=== PATIENT | female | born 1960 | race Two or more races ===

== ENCOUNTER → 2018-05-06 09:56 | Outpatient (CLI) | payer MEDICAID, SELFPAY ==
[2018-02-08 09:14] VITALS: BMI 44.1
[2018-05-06 09:27] VITALS: BMI 44.1
--- NOTE | 2018-05-07 08:35 | PFT ---
INTRODUCTION: The patient is a 57-year-old female that presents for pulmonary function studies secondary to a diagnosis of obstructive sleep apnea. Respiratory therapy reports good patient effort. Bronchodilators were used during testing. INTERPRETATION: Forced expiration spirometry demonstrates no evidence of a large airways obstructive ventilatory defect. There was no significant response to aerosolized bronchodilators. Spirograms are of good quality and plateau normally. The respiratory flow volume loop is normal. Body plethysmography was performed and reveals lung volumes to be within normal limits. Diffusing capacity by single breath CO is within normal limits as well. IMPRESSION: Normal pulmonary function studies.
== END ==
PROVIDERS: Family Provider Nurse Practitioner Family; PCP Nurse Practitioner Family; Referring Provider Internal Medicine Critical Care Medicine; Visit Provider Internal Medicine Critical Care Medicine
DX: G47.33 Obstructive sleep apnea (adult) (pediatric) (principal); G47.34 Idiopathic sleep related nonobstructive alveolar hypoventilation
CPT/HCPCS: 94060; 94726; 94729

== ENCOUNTER → 2018-05-12 09:37 | Outpatient (CLI) | payer MEDICAID, SELFPAY ==
[2018-05-06 09:27] VITALS: BMI 44.1
== END ==
PROVIDERS: Family Provider Nurse Practitioner Family; PCP Nurse Practitioner Family; Referring Provider Internal Medicine Critical Care Medicine; Visit Provider Internal Medicine Critical Care Medicine
DX: G47.34 Idiopathic sleep related nonobstructive alveolar hypoventilation (principal)
CPT/HCPCS: 94762

== ENCOUNTER → 2019-02-11 06:47 | Outpatient (CLI) | payer MEDICAID, SELFPAY ==
[2019-01-27 13:13] VITALS: BMI 42.3
--- NOTE | 2019-02-11 06:54 | CT_ITS ---
STUDY: CT RIGHT KNEE WITHOUT CONTRAST REASON FOR EXAM: Female, 58 years old. FELL 3 WKS AGO, FX PATELLA, PAIN RADIATION DOSAGE (If Supplied By Facility): CTDIvol = ( 15.35 ) mGy, DLP = ( 526.46 ) mGycm TECHNIQUE: Transaxial CT imaging of the knee was performed. Coronal and sagittal images were reformatted. Individualized dose optimization techniques were used for this CT. COMPARISON: None. FINDINGS: Mild spurring of the medial femoral condyle and medial tibial plateau. There is moderate narrowing of the articular joint space of the medial knee compartment. Mild spurring of the lateral femoral condyle and lateral tibial plateau. There is mild narrowing of the articular joint space of the lateral knee compartment. There is patellofemoral spurring and moderate joint space narrowing. There is recent nondisplaced fracture of the inferior medial aspect of the patella, series 3 images 59/121 and 60/121. There is adjacent corticated ossification suggesting prior avulsion. Normal proximal tibiofibular articulation. There is small joint effusion. The quadriceps tendon is grossly normal. The patellar tendon is grossly normal. Normal Hoffa''s fat pad. The soft tissues are unremarkable. CT/Extremity Lower without Contra IMPRESSION: Nondisplaced fracture of the patella. Tricompartmental degenerative change. Small joint effusion. Electronically Signed: Josh New MD at 8:28 EST , Service support ,
== END ==
PROVIDERS: Family Provider Student in an Organized Health Care Education/Training Program; PCP Student in an Organized Health Care Education/Training Program; Referring Provider Orthopaedic Surgery; Visit Provider Orthopaedic Surgery
DX: S82.091A Other fracture of right patella, initial encounter for closed fracture (principal)
CPT/HCPCS: 73700; 76377

== ENCOUNTER → 2019-03-02 15:02 | Outpatient (CLI) | payer MEDICAID, SELFPAY ==
[2019-01-27 13:13] VITALS: BMI 42.3
--- NOTE | 2019-03-02 15:02 | RAD_ITS ---
STUDY: X-RAY - RIGHT KNEE REASON FOR EXAM: Knee pain after a fall. TECHNIQUE: 4 view(s) of the knee. COMPARISON: CT images 02/11/2019. FINDINGS: Normal visualized distal femur. Normal visualized proximal tibia and fibula. Normal proximal tibiofibular articulation. There is a subtle healing nondisplaced fracture of the lateral patellar facet. There is also an ossicle adjacent to the lateral patellar facet. There is a small marginal osteophyte of the medial tibial plateau and mild joint space narrowing of the medial femorotibial compartment. There are very small marginal osteophytes without joint space narrowing of the lateral femorotibial compartment. There is severe joint space narrowing of the patellofemoral articulation. The soft tissue structures are unremarkable. RAD/Knee 4 or More Views IMPRESSION: Subtle healing nondisplaced fracture of the lateral patellar facet. Arthrosis of the medial femorotibial and patellofemoral compartments. Electronically Signed: Sandro Duron MD at 12:17 EST Tel , Service support ,
== END ==
PROVIDERS: Family Provider Student in an Organized Health Care Education/Training Program; PCP Student in an Organized Health Care Education/Training Program; Referring Provider Orthopaedic Surgery; Visit Provider Orthopaedic Surgery
DX: S82.001A Unspecified fracture of right patella, initial encounter for closed fracture (principal)
CPT/HCPCS: 73564

== ENCOUNTER 2021-05-20 09:33 | Outpatient (CLI) | payer MEDICAID, SELFPAY ==
--- NOTE | 2021-05-20 08:30 | EMB_PTH ---
PATIENT: MACY RIVAS LOC: [facility] U#:[id number] AGE/SX: 60/F ROOM: RE05/20/[address]: ARCADIO Mederos : 1960 BED: DIS: 05/20/2021 SPEC #: [id number] RECD: 05/20/21 09:28 STATUS: SANDRA REGena #: [id number] JEAN: 05/20/21 08:[address]: Lisbeth Whelna NP DEPT: SURGICAL PATHOLOGY RECD BY: Alexy Toure ENTERED: 05/20/21 10:50 SP TYPE: ENDOM BX/C ESTELLA DR: Dr. Ivone Hurtado MD Tissues: Endometrium, NOS Procedures: Surgery Specimen Level IV HEADER OPERATION: Endometrial biopsy PRE-OP DIAGNOSIS: PMB TISSUE SUBMITTED: Endometrial biopsy MICROSCOPIC DIAGNOSIS Endometrial biopsy: Disordered proliferative endometrium. See comment. MIREILLE:agustin 05/21/2021 COMMENT A polypoid fragment of endometrial tissue with fibrous stroma is also noted and may represent a fragment of benign endometrial polyp. Case has been reviewed in consultation with Dr. Thorpe who concurs with the above diagnosis. IDC:AM MICROSCOPIC DESCRIPTION Slides are reviewed. GROSS DESCRIPTION Received is one container labeled with the patient's name and not further designated. The specimen consists of multiple irregular fragments of solis soft tissue mixed with mucoid tissue that in aggregate measure 2.5 x 2 x 0.2 cm. The specimen is totally submitted in one cassette. / SJ:agustin 05/20/2021 TC:5 [facility]: [id number]
== END 2021-05-20 23:59 | disposition home or self-care (01) ==
LOC: LABSPEC 09:34
PROVIDERS: PCP Student in an Organized Health Care Education/Training Program; Referring Provider Nurse Practitioner Women's Health; Visit Provider Nurse Practitioner Women's Health
DX: N95.0 Postmenopausal bleeding (principal)
CPT/HCPCS: 88305

== ENCOUNTER 2021-05-27 14:09 | Outpatient (CLI) | payer MEDICAID, SELFPAY ==
--- NOTE | 2021-05-27 14:11 | US_ITS ---
EXAM: US pelvis, transvaginal.. HISTORY: endometrial thickening TECHNIQUE: US Pelvis Non OB Complete With Transvaginal Imaging COMPARISON: None. LIMITATIONS: None. UTERUS Size: Within normal limits Heterogeneous myometrium. Orientation: Normal. Endometrial echo: Normal. 4 mm Masses: Nabothian cysts measuring up to 13 mm. Bilateral ovaries not visualized. ADNEXA: No masses or fluid collections. CUL-DE-SAC: No masses or fluid collections. OTHER: Trace free fluid. CONCLUSION: 1. Endometrium 4 mm. 2. Trace free fluid. 3. Bilateral ovaries not visualized. Electronically Signed: Mitul Bar MD at 6:12 EDT , US/Transvaginal Non-
--- NOTE | 2021-05-27 14:11 | US_ITS ---
EXAM: US pelvis, transvaginal.. HISTORY: endometrial thickening TECHNIQUE: US Pelvis Non OB Complete With Transvaginal Imaging COMPARISON: None. LIMITATIONS: None. UTERUS Size: Within normal limits Heterogeneous myometrium. Orientation: Normal. Endometrial echo: Normal. 4 mm Masses: Nabothian cysts measuring up to 13 mm. Bilateral ovaries not visualized. ADNEXA: No masses or fluid collections. CUL-DE-SAC: No masses or fluid collections. OTHER: Trace free fluid. CONCLUSION: 1. Endometrium 4 mm. 2. Trace free fluid. 3. Bilateral ovaries not visualized. Electronically Signed: Mitul Bar MD at 6:12 EDT , US/Pelvic (Non )
== END 2021-05-27 23:59 | disposition home or self-care (01) ==
LOC: US 14:10
PROVIDERS: PCP Student in an Organized Health Care Education/Training Program; Referring Provider Obstetrics & Gynecology; Visit Provider Obstetrics & Gynecology
DX: R93.89 Abnormal findings on diagnostic imaging of other specified body structures (principal)
CPT/HCPCS: 76830; 76856

== ENCOUNTER → 2023-01-18 | Outpatient (CLI) | payer MEDICAID, SELFPAY ==
--- NOTE | 2023-01-18 08:53 | MRI_ITS ---
EXAM: MR RIGHT UPPER EXTREMITY WITHOUT INTRAVENOUS CONTRAST, SHOULDER CLINICAL INDICATION: pain, rule out cuff tear TECHNIQUE: Multiplanar and multisequence MR images of the right shoulder. COMPARISON: No relevant prior studies available. FINDINGS: TENDONS: SUPRASPINATUS: Full-thickness fullwidth tearing of the supraspinatus tendon with failure at the tendon footprint and and medial retraction resulting in a gap of 9 mm. INFRASPINATUS: Moderate infraspinatus tendinosis without significant tendon tearing. SUBSCAPULARIS: Distal subscapularis tendon is difficult to see and evaluate due to significant motion artifact. TERES MINOR: Unremarkable. Intact. BICEPS BRACHII, LONG HEAD: Long head of biceps tendon is difficult to see due to motion artifact. The extra-articular biceps tendon is not well seen in the bicipital groove. LIGAMENTS: GLENOHUMERAL: Unremarkable. Intact. MUSCLES: Unremarkable. No rotator cuff muscle atrophy. FLUID: Moderate to large amount of fluid in the subacromial/subdeltoid bursa could be related to full-thickness rotator cuff tear or could represent bursitis. CARTILAGE: Unremarkable. Articular cartilage intact. GLENOID LABRUM: Unremarkable. No gross labral tear. BONES/JOINTS: Moderate to severe hypertrophic degenerative changes acromioclavicular joint with moderate mass effect on the underlying soft tissues. Significant motion artifact limits assessment. Type II acromion with curved undersurface. No subacromial enthesophyte or os acromiale. OTHER SOFT TISSUES: Unremarkable. No rotator interval edema. MRI/Upper Ext Joint Only(Routine) IMPRESSION: 1. Full-thickness fullwidth tearing of the supraspinatus tendon with failure at the tendon footprint and and medial retraction resulting in a gap of 9 mm. 2. Moderate to large amount of fluid in the subacromial/subdeltoid bursa could be related to full-thickness rotator cuff tear or could represent bursitis. 3. Moderate to severe hypertrophic degenerative changes of the acromioclavicular joint with moderate mass effect on the underlying soft tissues. Electronically Signed: Franck Motley MD at 22:53 EST ,
== END | disposition home or self-care (01) ==
LOC: MRI 15:30
PROVIDERS: PCP Student in an Organized Health Care Education/Training Program; Referring Provider Orthopaedic Surgery Sports Medicine; Visit Provider Orthopaedic Surgery Sports Medicine
DX: M25.811 Other specified joint disorders, right shoulder (principal)
CPT/HCPCS: 73221

== ENCOUNTER → 2023-10-07 | Outpatient (CLI) | payer MEDICAID, SELFPAY ==
--- NOTE | 2023-10-07 11:38 | CT_ITS ---
CT LEFT LOWER EXTREMITY WITH 3-D IMAGING CLINICAL INDICATION: templating for left RYANN TECHNIQUE: Axial CT images of the LEFT lower extremity was performed without IV contrast material. Coronal and sagittal reformats were provided. The protocol utilizes one or more of the following dose reduction techniques: automated exposure control, adjustment of mA and/or kV according to patient size,and/or use of iterative reconstruction technique. RADIATION DOSAGE (If Supplied By Facility): CTDIvol = ( 14.07 ) mGy, DLP = ( 890.67 ) mGycm COMPARISON: Prior study dated: Prior radiographs of the left hip dated September 20, 2023. FINDINGS: Bones: Imaging of the left hip was obtained. There is evidence of a marked degree of joint space narrowing of the left hip joint with subchondral cysts is. An element of avascular necrosis should be ruled out. Imaging of the left knee joint was obtained. There is a moderate degree of joint space narrowing involving the medial compartment of the knee joint. Moderate degree of patellofemoral osteoarthritis. Soft Tissues: The deep soft tissue structures are unremarkable. The superficial soft tissues are unremarkable without evidence of edema, hematoma, or foreign body. CT/Extremity Lower without Contra IMPRESSION: Marked degree of joint space narrowing of the left hip joint with subchondral cysts and possible avascular necrosis. Electronically Signed: Miki Ivan MD at 15:15 EDT ,
== END | disposition home or self-care (01) ==
LOC: CT 11:36
PROVIDERS: PCP Nurse Practitioner Family; Referring Provider Orthopaedic Surgery; Visit Provider Orthopaedic Surgery
DX: M16.12 Unilateral primary osteoarthritis, left hip (principal)
CPT/HCPCS: 73700

== ENCOUNTER → 2023-10-15 | Outpatient (CLI) | payer MEDICAID, SELFPAY ==
[2023-10-15 11:34] LABS: Free T3 4.5 pg/mL (2.18-3.98); Thyroid Stim Hormone (TSH) < 0.005 uIU/mL (0.358-3.740)
== END | disposition home or self-care (01) ==
LOC: LAB 09:47
PROVIDERS: PCP Nurse Practitioner Family; Referring Provider Nurse Practitioner Family; Visit Provider Nurse Practitioner Family
DX: E05.90 Thyrotoxicosis, unspecified without thyrotoxic crisis or storm (principal)
CPT/HCPCS: 36415; 84439; 84443; 84481

== ENCOUNTER 2023-10-19 14:16 | Observation (INO) | payer MEDICAID, SELFPAY ==
--- NOTE | 2023-10-07 11:44 | EKG12_ITS ---
Test Reason : PRE OP Blood Pressure : / mmHG Vent. Rate : 110 BPM Atrial Rate : 110 BPM P-R Int : 146 ms QRS Dur : 068 ms QT Int : 316 ms P-R-T Axes : 024 001 085 degrees QTc Int : 427 ms Sinus tachycardia Otherwise normal ECG Confirmed by Stephen Angelo ([id number]), material expeditor RAQUEL NEELY ([id number]) on 10/11/2023 9:57:08 AM Referred By: Gavin Bhakta Confirmed By:Stephen Angelo
[2023-10-07 11:47] LABS: Absolute Lymphocyte Count 2.58 X10^3/uL (0.83-4.51); Absolute Neutrophil Count 4.9 X10^3/uL (2.0-7.7); Basophil# 0.06 X10^3/uL; Basophil% 0.7 % (0-1); Eosinophil# 0.29 X10^3/uL; Eosinophils% 3.4 % (0-5); Hematocrit 40.9 % (37-47); Hemoglobin 13.5 g/dL (12.0-15.0); Lymphocyte # 2.58 X10^3/ul (0.83-4.51); Lymphocyte % 30.4 % (19-41); Mean Corpuscular Hgb 28.3 pg (27.0-32.0); Mean Corpuscular Volume 85.7 fL (81-99); Mean Platelet Vol. 10.7 fl (6.2-12.0); Monocyte# 0.67 X10^3/uL; Monocyte% 7.9 % (0-10); NRBC Flagged by Analyzer 0 % (0-5); Neutrophil # 4.87 X10^3/uL (2.7-7.7); Neutrophil % 57.4 % (47-70); Platelet Count 302 K/mm3 (150-450); RBC Distribution Width SD 40.6 fl (35.1-43.9); Red Blood Count 4.77 M/mm3 (4.2-5.4); White Blood Count 8.5 K/mm3 (4.4-11.0)
[2023-10-07 11:54] LABS: International Normalized Ratio 1.1; Partial Thromboplast Time 25.4 Seconds (24.1-36.2); Prothrombin Time (Protime)PT. 13.8 SECONDS (11.7-14.9)
[2023-10-07 12:09] LABS: Microalbumin,Random Urine 5.8 mg/L (NO RANGE EST.); Microalbumin:Creatinine Ratio 11.2 mg/g CRE (<30 mg/g CRE)
[2023-10-07 12:48] LABS: Magnesium 2.2 mg/dL (1.6-2.6); Thyroid Stim Hormone (TSH) < 0.005 uIU/mL (0.358-3.740)
[2023-10-07 12:58] LABS: ALB/GLOB Ratio 0.7 RATIO (0.9-2.4); AST(SGOT) 18 U/L (15-37); Alanine Aminotransfer ALT/SGPT 28 U/L (13-56); Albumin, Serum 3.2 g/dL (3.2-5.0); Alkaline Phosphatase 82 U/L (45-117); Anion Gap 7 (5-15); BUN 19 mg/dL (7-18); BUN/Creat Ratio 28.8 RATIO (10-20); Calcium,Total 9.3 mg/dL (8.5-10.1); Chloride 103 mmol/L (98-107); Cholesterol 110 mg/dL (200); Creatinine, Serum 0.66 mg/dL (0.55-1.02); EST Glomerular Filtration Rate 97 mL/min (>60); Est Glom Filt Rate - Afr Amer 117 mL/min (>60); Free T3 5.4 pg/mL (2.18-3.98); Globulin 4.4 g/dL (2.2-4.2); Glucose 138 mg/dL (74-106); High Density Lipoprotein 30 mg/dL; Potassium 3.8 mmol/L (3.5-5.1); Protein, Total 7.6 g/dL (6.4-8.2); Sodium Level 136 mmol/L (136-145); T4 Free Direct 1.83 ng/dL (0.76-1.46); Thyroid Stim Hormone (TSH) < 0.005 uIU/mL (0.358-3.740); Triglycerides 197 mg/dL; Very Low Density Lipoprotein 39 mg/dL (5-40)
[2023-10-07 13:38] LABS: Vitamin D,25 Hydroxy 41.9 ng/mL
[2023-10-07 13:54] LABS: Hemoglobin A1c 6.2 % (3.8-5.6)
[2023-10-08 08:12] LABS: Fructosamine 208 umol/L (0-285)
[2023-10-13 07:08] LABS: Thyroid Peroxidase AB < 9 IU/mL (0-34); Thyroid Stim Immunoglob 2.28 IU/L (0.00-0.55)
[2023-10-19] VITALS (16 sets, daily range): BP systolic 122–162; BP diastolic 62–88; PULSE 98–110; RESP 14–18; TEMP 36.3–36.9; O2SAT 93–97; BMI 38.9
--- NOTE | 2023-10-19 08:30 | FEM_PTH ---
PATIENT: MACY RIVAS LOC: [facility] U#:[id number] AGE/SX: 62/F ROOM: HI311 RE10/19/[address]: Dr. Tom Payton DO : 1960 BED: 1 DIS: 10/20/2023 SPEC #: [id number] RECD: 10/19/23 18:11 STATUS: SANDRA REQ #: [id number] JEAN: 10/19/23 08:[address]: Gavin Bhakta DEPT: SURGICAL PATHOLOGY RECD BY: Erlinda Castañeda ENTERED: 10/20/23 11:46 SP TYPE: FEM HEAD OTHR DR: DO Dr. Tom Spangler DO Dr. Paige Pierce, MD Jessica Ungerer, MUFF WINDER-C Caitlin Tilley NP-C Tissues: Femoral region, NOS Procedures: Decalcification bone/plaque Surgery Specimen Level V Comments: @ Ordering doctor for DEC edited from to @ by WILFRID at 10/20/23 1403 @ Ordering doctor for SUV edited from to @ by WILFRID at 10/20/23 1403 @ Submitting doctor edited from to @ by WILFRID at 10/20/23 1403 HEADER OPERATION: Left total hip replacement robotic arm assist PRE-OP DIAGNOSIS: Left hip osteoarthritis TISSUE SUBMITTED: Left hip MICROSCOPIC DIAGNOSIS Left hip bone and soft tissue, total hip replacement/resection: Femoral head with degenerative osteoarthritic changes. Fragments of fibroadipose tissue, fibroconnective tissue and reactive synovial tissue. SJ: 10/26/2023 MICROSCOPIC DESCRIPTION Slides are reviewed. GROSS DESCRIPTION Received is one container labeled with the patient's name and designated bone and soft tissue left hip. The specimen consists of a solis femoral head. The femoral head measures 5.5 x 5.0 x 4.5 cm. The articular surface displays bone erosion, osteophyte formation and eburnation. Also present in the specimen container are multiple irregular fragments of bone reamings and pink-yellow soft tissue measuring in aggregate 9.0 x 7.0 x 1.5 cm. X Ray Equipment Mechanic sections are submitted in two cassettes as follows: 1 - soft tissue and bone reamings, 2 - bone after decalcification. /AM.mr 10/20/2023 TC:5 CPT: 02855, 30885
--- NOTE | 2023-10-19 09:33 | PCM.PRE.AN2 ---
ASA Classification* ASA Classification ASA Classification: 2 Assessment & Plan Anesthesia* Anesthesia Assessment Anesthesia Assessment: Discussed sedation and/or anesthesia options, risks, benefits, and alternatives with patient/parents/legal guardian/POA. Questions invited. The patient/parents/legal guardian/POA seems to understand and agrees to proceed with anesthesia plan. Reviewed the physical assessment, medical history, allergy history and patient home medications list prior to surgery/procedure/anesthetic and documented any changes. Performed airway and anesthesia risk assessments. Anesthesia Type Anesthesia Type: Spinal Anesthesia Focused Assessment* Airway Assessment Mouth opens: >3 cm Mallampati Score: II Focused Labs Anesthesia Preop lab: CBC WBC 8.5 K/mm3 (4.4-11.0) 10/07/23 11:20 RBC 4.77 M/mm3 (4.2-5.4) 10/07/23 11:20 Hgb 13.5 g/dL (12.0-15.0) 10/07/23 11:20 Hct 40.9 % (37-47) 10/07/23 11:20 Plt Count 302 K/mm3 (150-450) 10/07/23 11:20 CHEMISTRY Potassium 3.8 mmol/L (3.5-5.1) 10/07/23 11:21 Sodium 136 mmol/L (136-145) 10/07/23 11:21 Magnesium 2.2 mg/dL (1.6-2.6) 10/07/23 11:20 BUN 19 mg/dL (7-18) H 10/07/23 11:21 Creatinine 0.66 mg/dL (0.55-1.02) 10/07/23 11:21 Glucose 138 mg/dL (74-106) H 10/07/23 11:21 TSH < 0.005 uIU/mL (0.358-3.740) L 10/15/23 09:51 COAG PT 13.8 SECONDS (11.7-14.9) 10/07/23 11:20 Pre-Assessment Diagnosis/Proposed Procedure Planned Operative Procedure(s): (L) robotic assisted left total hip arthroplasty Anesthesia History Anesthesia History - critical care nurse practitioner: Anesthesia History - critical care nurse practitioner Hx Hospitalization No 10/06/23 11:15 Any Problems With Anesthesia Yes: ponv, slow to wake 10/06/23 11:15 Cholinesterase deficiency No 10/06/23 11:15 You/Your Family Experience No 10/06/23 11:15 fever (hyperthermia) with Relationship Recent Exposure to Contagious Disease Does patient have nerve No 10/06/23 11:15 stimulator Patient instructed to have device shut off --Does patient have Pacemaker or ICD? When Was Last Pacemaker Check QUESTION #4 FULL TEXT: You/Your Family Experience fever (hyperthermia) with Anesthesia Last Oral Intake Last Oral intake: Last Oral Intake NPO since Meds taken in AM with sips of water? Meds patient instructed to take am of surgery PONV PONV - critical care nurse practitioner: PONV - critical care nurse practitioner Female Yes 10/06/23 11:15 HX of Motion Sickness No 10/06/23 11:15 HX of N/V After Surgery Yes 10/06/23 11:15 Non-Smoker Yes 10/06/23 11:15 Duration of Surgery greater Yes 10/06/23 11:15 than 60 minutes Number of Risk Factors 4 10/06/23 11:15 PONV Score Severe Risk 10/06/23 11:15 Height & Weight Height & Weight: Anesthesia: Height & Weight Height 5 ft 7 in 10/18/23 08:29 Weight: 117.934 kg 10/18/23 08:29 Respiratory Assessment Respiratory Assessment - critical care nurse practitioner: Respiratory Tract Infection Hx - critical care nurse practitioner Hx Respiratory Tract Infection No 10/06/23 11:15 STOP Sleep Apnea STOP Sleep Apnea - critical care nurse practitioner: STOP Sleep Apnea - critical care nurse practitioner Hx Hypertension Yes: controlled with med 10/06/23 11:15 Hx Sleep Apnea Yes 10/06/23 11:15 CPAP Yes 10/06/23 11:15 BIPAP No 10/06/23 11:15 Do you snore loudly (louder than talking or can be heard Do you often feel tired/ fatigued/ sleepy during daytime? Has anyone observed you stop breathing during sleep? STOP Results Positive 10/06/23 11:15 QUESTION #5 FULL TEXT : Do you snore loudly (louder than talking or can be heard through closed doors)? 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 Specify any problems Hx of Preganancy in last 3 N/A 10/06/23 11:15 Months Nurse Filling Out Transfusion NBUCHER 10/06/23 11:15 & Questions: Date: 10/06/23 10/06/23 11:15 Time: 11:16 10/06/23 11:15 Patient unable to answer at this time (ie. confused, unrespo /Reproduction History /Reproductive History - critical care nurse practitioner: /Reproductive Hx- critical care nurse practitioner Hx Now No 10/06/23 11:15 Gestational Age (in weeks): EDC: Hx Hx Para Hx Section SAB No 10/06/23 11:15 Active Medications Active Medications: Current Medications Generic Name Dose Route Start Last Admin Trade Name Freq PRN Reason Stop Dose Admin Acetaminophen 1,000 mg 10/19/23 11:15 Acetaminophen 500 Mg Tablet PO 10/19/23 11:16 X1 ONE Celecoxib 400 mg 10/19/23 11:15 Celecoxib 200 Mg Capsule PO 10/19/23 11:16 X1 ONE Dexamethasone Sodium Phosphate 10 mg 10/19/23 11:15 Dexamethasone 10 Mg/Ml Vial IV 10/19/23 11:16 X1 ONE Gabapentin 600 mg 10/19/23 11:15 Gabapentin 600 Mg Tablet PO 10/19/23 11:16 X1 ONE Lactated Ringer's 1,000 mls @ 999 mls/hr 10/19/23 11:15 IV 10/19/23 12:15 .Q1H1M WARNER Cefazolin Sodium 3 gm/ Sodium 115 mls @ 150 mls/hr 10/19/23 11:15 Chloride IV 10/19/23 12:00 PREOP ONE Tranexamic Acid 2,000 mg/ 120 mls @ 660 mls/hr 10/19/23 11:15 Sodium Chloride IV 10/19/23 11:25 X1 ONE Lactated Ringer's 1,000 mls @ 125 mls/hr 10/19/23 11:15 IV 10/19/23 19:14 .Q8H WARNER Magnesium Sulfate 1 gm/ 102 mls @ 408 mls/hr 10/19/23 11:15 Dextrose IV 10/19/23 11:29 X1 ONE Insulin Human Lispro 1 - 6 unit 10/19/23 11:15 Insulin Lispro 100 Unit/Ml Insuln.Pen SC Q4H PRN PRN BG>/= 180, SEE PROTOCOL Protocol Scopolamine HBr 1 patch 10/19/23 11:15 Scopolamine 1mg/72hr Patch TD 10/19/23 11:16 X1 ONE PFSH Medical History Wears contact lenses Depression Thyroid disease Insulin dependent diabetes mellitus Ambulates with cane Arthritis PONV (postoperative nausea and vomiting) High cholesterol Dietary restriction Non-smoker CPAP (continuous positive airway pressure) dependence Sleep apnea History of stress test Right rotator cuff tear Osteoarthritis of left hip Left hip pain Impingement of right shoulder Right shoulder pain Diabetic neuropathy Mild depression Hyperlipidemia GERD (gastroesophageal reflux disease) Muscle cramps Bilateral lower extremity edema Endometrial thickening on ultrasound Patellar fracture HTN (hypertension) Type 2 diabetes mellitus GITA (obstructive sleep apnea) Home Medications ?Medication ?Instructions ?Recorded ?Last Taken ?Type albuterol sulfate 90 mcg/actuation 2 puff inhalation Q6H PRN 05/20/21 Unknown History aerosol inhaler (Ventolin HFA) shortness of breath or wheezing duloxetine 60 mg capsule,delayed 60 mg PO DAILY 05/20/21 Unknown History release blood-glucose transmitter (Dexcom #1 ea 01/04/23 Unknown History G6 Transmitter device) insulin lispro 100 unit/mL 1 sliding scale dose subcut 01/04/23 Unknown History subcutaneous pen (Humalog KwikPen USEASDIRECTD (U-100) Insulin) trazodone 150 mg tablet 150 mg PO QHS 01/04/23 Unknown History glipizide 10 mg tablet, extended 10 mg PO BID 08/05/23 Unknown History release 24 hr insulin glargine 100 unit/mL (3 30 unit (0.3 mL) subcut DAILY #9 mL 08/05/23 Unknown Rx mL) subcutaneous pen (Lantus Solostar U-100 Insulin) potassium chloride 20 mEq 20 meq PO QDAY 08/05/23 Unknown History tablet,extended release(part/cryst) ropinirole 1 mg tablet 1 mg PO QHS 08/05/23 Unknown History tizanidine 4 mg tablet 4 mg PO BID PRN muscle spasticity 08/05/23 Unknown History semaglutide 2 mg/dose (8 mg/3 mL) 2 mg subcut MILLS 10/06/23 Unknown History subcutaneous pen injector (Ozempic) losartan 100 1 tab PO DAILY 10/07/23 Unknown History mg-hydrochlorothiazide 12.5 mg tablet methimazole 10 mg tablet 20 mg (2 x 10 mg) PO DAILY #60 tabs 10/07/23 Unknown Rx cholecalciferol (vitamin D3) 1,250 1,250 mcg PO QWEEK #12 caps 10/08/23 Unknown Rx mcg (50,000 unit) capsule Allergy/AdvReac Type Severity Reaction Status Date / Time acetaminophen (From Percocet) Allergy NEEDS Verified 10/18/23 08:32 FOLLOW-UP oxycodone (From Percocet) Allergy NEEDS Verified 10/18/23 08:32 FOLLOW-UP Family History Father Diabetes Hypertension COPD (chronic obstructive pulmonary disease) Heart disease Kidney disease Brother Heart disease Hypertension Diabetes Pancreatic cancer Mother A-fib Heart disease Surgical History History of surgical procedure on eye proper using laser S/P foot surgery, left Tubal ligation status H/O section Hx of cholecystectomy H/O foot surgery Social History household members: other details: has step son and custody of 3 grandchildren Smoking Status: Never smoker Electronic Cigarette Use: not used second hand exposure: No alcohol intake: never substance use type: does not use caffeine: Yes seatbelt use: sometimes do you feel safe at home: Yes additional social history: - Moises Review of Systems (Anesthesia) ROS Narrative System reviewed and no additional complaints, except as documented.
[2023-10-19] MEDS: Lactated Ringers 1,000 ML 999 ML IV (09:37)
[2023-10-19] MEDS: Acetaminophen 500 MG Tablet 1000 MG PO ×2 (09:38→20:46)
[2023-10-19] MEDS: Celecoxib 200 MG Capsule 400 MG PO (09:38)
[2023-10-19] MEDS: Magnesium 1 GM over 15 mins IV (09:38)
[2023-10-19] MEDS: Gabapentin 600 MG Tablet PO (09:38)
[2023-10-19] MEDS: Scopolamine 1mg/72hr Patch 1 PATCH TD (09:39)
[2023-10-19 10:22] LABS: Bedside Glucose 155 mg/dL (74-106)
--- NOTE | 2023-10-19 10:32 | PCM.HP.BLA ---
History and Physical Date of Admission: 10/19/23 [facility] [id number] [place] [address] OFFICE VISIT Date of Service: 09/20/23 MR#: [id number] Acct: [id number] Name: MACY RIVAS Rep #: [id number] : 1960 Provider: Dr. Gavin Bhakta DO Age/Sex: 62/F Location: [email or web address] Status: Signed Intake Vital Signs 08/04/2410:00 09/19/2410:14 Height 5 ft 7 in 5 ft 7 in Weight: 260 lb 253 lb BMI 40.7 39.6 BP 142/80 H Blood Pressure Location Lt brachial Position Sitting Pulse 104 H Pulse Source Monitor Pulse Oximetry (%) 95 Oxygen Delivery Method room air Intake Visit Reasons: left hip Accompanied by: Is patient in pain?: Yes Allergies acetaminophen (From Percocet) Allergy (Mild, Verified 09/20/23 10:59) Itchingoxycodone (From Percocet) Allergy (Mild, Verified 09/20/23 10:59) Itching Medications ?Medication ?Instructions ?Recorded ?Confirmed ?Type albuterol sulfate 90 mcg/actuation 2 puff inhalation Q6H PRN 05/20/21 09/20/23 History aerosol inhaler (Ventolin HFA) duloxetine 60 mg capsule,delayed 60 mg PO DAILY 05/20/21 09/20/23 History release gabapentin 100 mg capsule 100 mg PO DAILY 05/20/21 09/20/23 History losartan 50 mg-hydrochlorothiazide 1 tab PO DAILY 05/20/21 09/20/23 History 12.5 mg tablet pantoprazole 20 mg tablet,delayed 20 mg PO DAILY 05/20/21 09/20/23 History release blood-glucose transmitter (Dexcom #1 ea 01/04/23 09/20/23 History G6 Transmitter device) insulin lispro 100 unit/mL 1 sliding scale dose subcut 01/04/23 09/20/23 History subcutaneous pen (Humalog KwikPen USEASDIRECTD (U-100) Insulin) trazodone 150 mg tablet 150 mg PO DAILY 01/04/23 09/20/23 History glipizide 10 mg tablet, extended 10 mg PO BID 08/05/23 09/20/23 History release 24 hr insulin glargine 100 unit/mL (3 30 unit (0.3 mL) subcut DAILY #9 mL 08/05/23 09/20/23 Rx mL) subcutaneous pen (Lantus Solostar U-100 Insulin) potassium chloride 20 mEq 20 meq PO QDAY 08/05/23 09/20/23 History tablet,extended release(part/cryst) ropinirole 1 mg tablet 1 mg PO QHS 08/05/23 09/20/23 History tizanidine 4 mg tablet 4 mg PO BID PRN 08/05/23 09/20/23 History semaglutide 2 mg/dose (8 mg/3 mL) 2 mg (0.75 mL) subcut QWEEK #3 mL 08/20/23 09/20/23 Rx subcutaneous pen injector (Ozempic) [facility] Medical History Right rotator cuff tear Osteoarthritis of left hip Left hip pain Impingement of right shoulder Right shoulder pain Diabetic neuropathy Mild depression Hyperlipidemia GERD (gastroesophageal reflux disease) Muscle cramps Bilateral lower extremity edema Endometrial thickening on ultrasound Patellar fracture HTN (hypertension) Type 2 diabetes mellitus GITA (obstructive sleep apnea) Surgical History S/P foot surgery, left Tubal ligation status H/O section Hx of cholecystectomy H/O foot surgery Family History Father Diabetes Hypertension COPD (chronic obstructive pulmonary disease) Heart disease Kidney diseaseBrother Heart disease Hypertension Diabetes Pancreatic cancerMother A-fib Heart disease Social History household members: other details: has step son and custody of 3 grandchildren Smoking Status: Never smoker Electronic Cigarette Use: not used second hand exposure: No alcohol intake: never substance use type: does not use caffeine: Yes seatbelt use: sometimes do you feel safe at home: Yes additional social history: - Moises HPI left hip Details: This documentation accurately reflects the service provided and the decisions made by me, Dr. Gavin Bhakta, 09/20/23 0753. Part of today?s visit was documented by Marce JUNG, acting as scribe. MACY RIVAS is a 62 year old F here today for pre-op for a left total hip. Patient states that she does get spasms over her anterior thigh. Significant pain in her groin that is affecting her quality of life and she is ready to move forward with total hip arthroplasty Ortho Exam General General: Yes no acute distress Neurologic: Yes alert and Yes oriented x3 Psychologic: Yes reasonable and appropriate Left Hip Skin/Wound: No Ecchymosis, No soft tissue swelling and No Erythema Hip: Absent eccymosis, soft tissue swelling or erythema internal rotation @90 degree flexion: 0 degrees external rotation @90 degree extension: 60 degrees HIP: 0 IR with reproducible pain ER 60 with pain Large abdominal pannus no gross motor or sensory deficits left lower extremity Head: Normocephalic Atraumatic Chest: symmetrical rise, non-labored breathing, no audible wheeze Abdomen: no guarding, non-rigid Supplemental Info 09/20/2023 x-ray left hip continued progression of hip osteoarthritis severe. 02/10/2023 x-ray left hip: There has been a really significant change in her left hip her joint space is now collapsed and she is approaching [id number] 11/27/2022 x-ray left hip: There is mild joint space narrowing no acute findings there is some degenerative changes of bilateral sacroiliac joints and lower lumbar spine noted X-rays lumbar spine on disc demonstrate T12-L1 L1-L2 L4-L5 degenerative disc disease Coding Level of Care Code Off vis,est,level 3 Diagnoses Lumbar degenerative disc disease M51.36 Primary osteoarthritis of left hip M16.12 Osteoarthritis type: primary Type 2 diabetes mellitus without complication, with long-term current use of insulin E11.9; Z79.4 Diabetes mellitus type: type 2 Diabetes mellitus longterm insulin use: with computer terminal operator use Diabetes mellitus complication status: without complication Assessment and Plan Assessment and Plan (1) Lumbar degenerative disc disease: Status: Acute (2) Osteoarthritis of left hip: Status: Acute Qualifiers: Osteoarthritis type: primary Qualified Code(s): M16.12 - Unilateral primary osteoarthritis, left hip (3) Diabetes: Qualifiers: Diabetes mellitus type: type 2 Diabetes mellitus computer terminal operator insulin use: with computer terminal operator use Diabetes mellitus complication status: without complication Qualified Code(s): E11.9 - Type 2 diabetes mellitus without complications; Z79.4 - termite control service representative (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 Orders: Orders HIP, UNI W/ Pelvis 2-3 Views Today M16.12 - Unilateral primary osteoarthritis, left hip Plan Kimmy has had longtime standing severe left hip arthrosis that is progressively gotten worse radiographically and clinically over the years she has got her sugars under control finally and her weight is just under BMI of 40 and she is requesting to proceed with a left total hip arthroplasty. risks, benefits and alternatives of surgery reviewed including but not limited to bleeding, infection, nerve, foot drop, artery and/or tissue damage, fracture, VTE, leg length discrepancy, dislocation, need for hip precautions, continued pain and expected post-operative course. Plan for admission considering insulin-dependent diabetes obesity lumbar degenerative disc disease hypertension obstructive sleep apnea. Tentative surgery date November 02, 2023 Follow up at 2 weeks post op or sooner if pain, swelling, numbness or associated symptoms, or concerns develop. All questions answered. Patient in agreement of plan. 09/20/23 1322 <Electronically signed by Gavin Bhakta DO> Date Gavin Bhakta DO I have examined the patient and the H&P has been reviewed. There are no clinical changes since date of exam. Patient was seen and reexamined by Dr. Catherine was started on medication for her thyroid and did have follow-up labs since her last office visit it was medically cleared from endocrinology standpoint.
[2023-10-19] MEDS: Cefazolin 3 GM in 0.9% Normal Saline (100mL Bag) 100 ML IV (11:23)
[2023-10-19] MEDS: TRANEXAMIC ACID 2,000 MG in 0.9% Normal Saline (100mL Bag) 100 ML 660 MG IV (12:00)
[2023-10-19] MEDS: dexAMETHasone 10 MG/ML Vial IV (12:00)
--- NOTE | 2023-10-19 14:23 | PCM.OP.BLANK ---
Operative Report Date of Procedure: 10/19/23 Preoperative diagnosis: Left hip DJD Postoperative diagnosis: Same Procedure: CT-guided Makoplasty assisted left total hip arthroplasty Implants: [place] Accolade II stem size 4, 132 degree neck angle +2.5 head neck length 52 mm Trident II acetabular shell with 40 mm cancellous screw 36 mm ceramic head, 10 degree Trident X3 polyethylene insert. Anesthesia: Spinal + General EBL: 175 cc Complications: None Condition: Stable to PACU Assistant Attorney General Manan sEcobar. My physician household personal assistant was a vital part of this case. He was important in appropriate retraction during the case, and protection of soft tissues during procedure. His intimate knowledge of the case and my steps aided in safe and expedient completion of the procedure as well as appropriate position of the extremity during the case. He was also vital in assisting with closure under my direct supervision. Indication for procedure: This is a 62-year-old female who has had long-standing arthrosis of the hip who has failed conservative treatment and wished to undergo total hip arthroplasty. We did discuss operative versus nonoperative intervention including risks of bleeding, infection , nerve artery tissue damage, need for further surgery, fracture, leg length discrepancy dislocation blood clot and need for postoperative physical therapy and postoperative expectations. An informed consent was signed. Procedure: Patient was met in the preoperative holding area once again the operative extremity was identified by both patient and physician and was marked. Patient was met by anesthesia . Anesthesia was started. patient was then positioned in the lateral decubitus position on a well-padded pegboard with an axillary roll. All bony prominences were checked and padded. The patient was prepped and draped in the usual sterile fashion. A timeout was called to ensure the proper patient procedure and extremity were being contemplated. Anatomic landmarks were palpated and marked for a standard posterior lateral approach. Prior to this the ASIS was palpated and 3 fingerbreadths proximal to this 3 pins were placed at a 45 degree angle into the iliac crest with good purchase, stab incisions were made with a 15 blade into the skin prior to placement. The Makoplasty array was then secured. A 10 blade scalpel was used to make a posterior incision through the skin and subcutaneous tissue. retractors were used and electrocautery was used to maintain meticulous hemostasis and dissect full-thickness flaps until the gluteal fascia was reached. The gluteal fascia was incised in line with the gluteal fibers. The bursal tissue was then freed from the underside and a Charnley retractor was placed. The femoral trochanteric checkpoint was placed and leg length was assessed using the trochanteric checkpoint and an EKG lead that was placed on the knee prior to prepping the leg .the fat pad was then elevated off of the external rotators with electrocautery and the external rotators were dissected off of the greater trochanter including the piriformis and were tagged with #1 Ethibond for later repair. The joint capsule opened with posterior trapdoor technique. The hip was surgically dislocated. The measurement on the preoperative CT from the top of the lesser trochanter to the femoral neck cut was marked Hohmann was placed around the lesser trochanter. A neck cutting guide was used to melquiades the neck with a Bovie and an oscillating saw was used complete the femoral neck cut. The femoral head was then removed and sized. We then turned our attention to the acetabulum. A Bovie was used to make a perforation in the anterior joint capsule and a Lemus retractor was placed this was repeated in the 6 o'clock position and a wide azalia was placed there. With a long handled knife the labral and pulvinar tissue were removed. We then registered the acetabulum with the pointing array and confirmed our landmarks. Once the socket was thoroughly prepared and labral tissue and pulvinar was removed we single reamed with the robotic arm. We then used the robotic arm to position the acetabular implant and impacted it into place under robotic guidance. We then proceeded to place a posterior superior screw by drilling first measuring and inserting the screw. We then inserted a trial liner. And turned our attention back to the femur at this point a femoral elevator was used. As well as a pointed wide Hohmann around the lesser trochanter and a Hohmann to help retract the gluteus medius. A box chisel was used to remove excess lateral neck followed by a canal finder and a lateralizing reamer. This was followed by sequential broaches. Attention was made of the version within the canal based on preoperative templating. Once the final broach was seated we then trialed reduced the hip it was determined that a 132 degree neck angle with a +2.5 neck length was the appropriate size. We then checked stability with shuck testing as well as flexion and internal rotation. then proceeded with hip extension and checked leg lengths at the knees and heels as well as with the trochanteric checkpoint and knee EKG lead. At this point trials were removed. A liner was inserted to the cup. The femoral stem was inserted. We re-trialed and then proceeded to impact the femoral head onto the Yrn taper. We then surgically reduce the hip check stability again and leg lengths and were satisfied. Betadine rinse was allowed to sit for 5 minutes while everyone changed their gloves. Thorough irrigation was performed. Followed by closure of the external rotators with #2 FiberWire followed by closure of gluteal fascia with #1 Ethibond. 0 Vicryl fat stitches and 2-0 Vicryl subcutaneous stitches and julien in the skin. Julien were placed in the skin pin sites over the iliac crest and dressed with a Mepilex dressing. The main incision was dressed with a Mepilex ag dressing and an abduction pillow was placed. Patient tolerated the procedure well there was no intraoperative complications all counts were correct and the patient was brought back to the PACU in stable condition
[2023-10-19] MEDS: Lactated Ringers 1,000 ML 125 ML IV (14:30)
--- NOTE | 2023-10-19 14:30 | PCM.POST.ANE ---
Anesthesia: Postop Eval I Current Vital Signs Temperature: 97.3 F Pulse Rate: 101 Blood Pressure: 150/62 Respiratory Rate: 14 Pulse Ox: 95 Oxygen Delivery Method: Room Air Assessment Airway patent: Yes Spontaneous unlabored respirations: Yes Mental status: Awake nausea: No Vomiting: No Anesthesia Complication: No Fluid Hydration Crystalloid volume administer (ml): 1,400 Total IV fluid infused: 1,400 Progress Note Anesthesia document: Postop Eval 1 completed: Yes
--- NOTE | 2023-10-19 14:35 | RAD_ITS ---
STUDY: X-RAY - PELVIS AND LEFT HIP REASON FOR EXAM: Female, 62 years old. Post Op -- AP both hips on single nicholas/lateral of op hip PACU TECHNIQUE: 2 views of the pelvis and hip. COMPARISON: Comparison is made with prior study dated September 20, 2023. FINDINGS: The patient is status post left total hip replacement. There is good alignment. Postoperative soft tissue changes. RAD/Hip Min 2 Views (Portable) IMPRESSION: Status post left total hip replacement. There is good alignment. Postoperative soft tissue changes. Electronically Signed: Miki Ivan MD at 14:47 EDT ,
[2023-10-19 15:11] LABS: Bedside Glucose 155 mg/dL (74-106)
--- NOTE | 2023-10-19 16:05 | POSTOPAN2_ITS ---
Anesthesia Postop Eval I Sum Postop Eval Completion status Anesthesia document: Postop Eval 1 completed: Yes Anesthesia Postop Eval I Summary Anesthesia Postop Eval I Summary: Anesthesia Postop Eval I: Assessment Summary Airway patent Yes 10/19/23 14:31 BRAKE [email or web address] [email or web address] Spontaneous unlabored Yes 10/19/23 14:31 BRAKE REPAIR [email or web address] respirations Mental status Awake 10/19/23 14:31 BRAKE REPAIR [email or web address] nausea No 10/19/23 14:31 BRAKE REPAIR [email or web address] Vomiting No 10/19/23 14:31 BRAKE REPAIR [email or web address] Anesthesia Postop Eval I: Fluid Summary Crystalloid volume administer 1,400 10/19/23 14:31 BRAKE REPAIR [email or web address] (ml) Colloids volume administered ( ml) Blood Product volume administered (ml) Total IV fluid infused 1,400 10/19/23 14:31 BRAKE REPAIR [email or web address] Anesthesia Postop Eval I: Summary Notes Anesthesia Complication No 10/19/23 14:31 BRAKE REPAIR [email or web address] Anesthesia Complication Comment: Post-operative progress note Anesthesia: Postop Eval II Evaluation Mental status: Awake and Calm Pain Level: 2 nausea: No Vomiting: No Complications Anesthesia Complication: No
--- NOTE | 2023-10-19 16:05 | PCM.POSTANE2 ---
Anesthesia Postop Eval I Sum Postop Eval Completion status Anesthesia document: Postop Eval 1 completed: Yes Anesthesia Postop Eval I Summary Anesthesia Postop Eval I Summary: Anesthesia Postop Eval I: Assessment Summary Airway patent Yes 10/19/23 14:31 AFTER [email or web address] [email or web address] Spontaneous unlabored Yes 10/19/23 14:31 AFTER [email or web address] [email or web address] respirations Mental status Awake 10/19/23 14:31 AFTER [email or web address] [email or web address] nausea No 10/19/23 14:31 AFTER [email or web address] [email or web address] Vomiting No 10/19/23 14:31 AFTER [email or web address] Anesthesia Postop Eval I: Fluid Summary Crystalloid volume administer 1,400 10/19/23 14:31 AFTER [email or web address] [email or web address] (ml) Colloids volume administered ( ml) Blood Product volume administered (ml) Total IV fluid infused 1,400 10/19/23 14:31 AFTER [email or web address] [email or web address] Anesthesia Postop Eval I: Summary Notes Anesthesia Complication No 10/19/23 14:31 AFTER [email or web address] [email or web address] Anesthesia Complication Comment: Post-operative progress note Anesthesia: Postop Eval II Evaluation Mental status: Awake and Calm Pain Level: 2 nausea: No Vomiting: No Complications Anesthesia Complication: No
--- NOTE | 2023-10-19 16:41 | PCM.PN.HOSP ---
Reason for Visit Reason for Visit: Diagnoses Type 2 diabetes mellitus without complications (10/19/23) Other specified abnormal findings of blood chemistry (10/19/23) Encounter for other preprocedural examination (10/19/23) Subjective Subjective Kimmy Marquez is a 62-year-old female history of hypertension, diabetes, hypothyroidism, GERD, OA who presented to [facility] 10/19/2023 due to left hip pain and plan for a left total hip arthroplasty. Hospitalist consulted postoperatively for medical management. Patient seen with family members at bedside. Reports overall feeling fair, no shortness of breath or cough, has no physical complaints other than some discomfort postsurgery. Endorses that she has been compliant with her insulin and methimazole, has GITA and is supposed to use CPAP however has been so uncomfortable sleeping at night and has been moving around and waking up so often that she has not been using it but she is hopeful that after the surgery she will be able to tolerate laying in bed and wearing her CPAP again. Does endorse some occasional daytime grogginess while not wearing CPAP. Objective Data Objective Data Vital Signs: Vital Signs Temp Pulse Resp BP Pulse Ox O2 Del Method O2 Flow Rate 97.5 F L 106 H 16 128/78 H 94 Nasal Cannula 4 10/19/23 15:55 10/19/23 15:55 10/19/23 15:55 10/19/23 15:55 10/19/23 15:55 10/19/23 15:55 10/19/23 15:55 Oxygen Flow Rate (L/min) 4 Oxygen Delivery Method Nasal Cannula Weight: 112.945 kg Body Mass Index (BMI) 38.9 Intake & Output: Intake and Output for Last 24 Hours 10/17/23 10/18/23 10/19/23 23:59 23:59 23:59 Intake Total 3337 / 3337 Balance 3337 / 3337 Lab / Micro Data 10/07/23 11:20 10/07/23 11:21 Labs: Laboratory Results - last 24 hr 10/19/23 09:22: POC Glucose 155 H 10/19/23 14:51: POC Glucose 155 H Micro: Microbiology 10/07/23 11:20 Swab (Method) Nasal Screen MRSA/MSSA - Final Radiography Diagnostic Testing: Radiology Impression Hip X-Ray 10/19/23 14:35 IMPRESSION: Status post left total hip replacement. There is good alignment. Postoperative soft tissue changes. Electronically Signed: Miki Ivan MD at 14:47 EDT , Physical Exam Narrative General: Alert, oriented, no apparent distress HEENT: Atraumatic, normocephalic Eyes: Anicteric, normal conjunctiva, extraocular movements grossly intact Neck: Supple Respiratory: Clear to auscultation bilaterally, normal respiratory effort Cardiovascular: Regular rate and rhythm GI: Soft, nontender, nondistended Extremities: No edema Musculoskeletal: Moving all extremities Neuro: No overt focal neurological deficits Skin: No rashes appreciated Psych: Cooperative Assessment & Plan Assessment/Plan (1) Type 2 diabetes mellitus: QUALIFIERS: Diabetes mellitus chcf insulin use: with capture manager use Diabetes mellitus complication status: with hyperglycemia Qualified Code(s): E11.65 - Type 2 diabetes mellitus with hyperglycemia; Z79.4 - snf (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 (2) Osteoarthritis of left hip: QUALIFIERS: Osteoarthritis type: primary Qualified Code(s): M16.12 - Unilateral primary osteoarthritis, left hip (3) GITA (obstructive sleep apnea): (4) Hyperthyroidism: (5) HTN (hypertension): QUALIFIERS: Hypertension type: unspecified Qualified Code(s): I10 - Essential (primary) hypertension (6) GERD (gastroesophageal reflux disease): PLAN: Plan # Hyperthyroidism -Recently diagnosed and started on methimazole -Continue methimazole -Will need to follow with her organisation and methods analyst on discharge #GITA -Has been noncompliant with home CPAP due to inability to lay still and frequent awakenings due to pain, patient to resume when she returns home if tolerated -Previously followed with pulmonology for this # Left hip OA -Status post total left hip arthroplasty with Dr. Bhakta -Management per primary #Type 2 diabetes mellitus -Glucose checks and sliding scale insulin -Will decrease home dose of insulin until patient adequately taking p.o. -Follows with endocrinology on outpatient basis -Hold Ozempic and glipizide while = hospitalized #GERD -Continue PPI # Hypertension -Given that patient will be postop and will likely be receiving pain medications will need to follow blood pressure closely to avoid hypotension -Takes commendation pill at home, will start losartan at 100 and continue hydrochlorothiazide at 12.5 with holding parameters #DVT ppx: Started on Eliquis 2.5 mg twice daily Katja Rios MD Time spent in the patient's overall evaluation,decision-making process, review of diagnostic data, adjustment of management, discussion with other providers, nursing nursing and ancillary staff involved in patient's care documentation, 26 Minutes Charges/Coding Visit Charges Office Visits / Consults: [id number] OV L3 Est 20min
[2023-10-19] MEDS: Cefazolin 2 GM in 0.9% Normal Saline (100mL Bag) 100 ML IV (18:20)
[2023-10-19] MEDS: Insulin Lispro 100 UNIT/ML INSULN.PEN SC (20:44)
[2023-10-19] MEDS: traZODone 50 MG Tablet 150 MG PO (20:45)
[2023-10-19] MEDS: Senna/Docusate Sodium 1 Tablet 2 TABLET PO (20:45)
[2023-10-19] MEDS: Pramipexole Di-HCl 0.5 MG Tablet PO (20:46)
[2023-10-19 22:02] LABS: Bedside Glucose 243 mg/dL (74-106)
[2023-10-19] MEDS: tiZANidine HCl 2 MG Tablet 4 MG PO (22:21)
[2023-10-20] MEDS: Cefazolin 2 GM in 0.9% Normal Saline (100mL Bag) 100 ML IV ×2 (01:13→05:31)
[2023-10-20 01:23] VITALS: BP 118/71; PULSE 94; RESP 18; TEMP 36.6; O2SAT 93
[2023-10-20] MEDS: oxyCODONE 5 MG Tablet PO (01:28)
[2023-10-20] MEDS: 0.9% Saline Lock 10 ML Syringe IV (01:29)
[2023-10-20] MEDS: Ketorolac 15 MG/ML Vial IV (01:29)
[2023-10-20] MEDS: Acetaminophen 500 MG Tablet 1000 MG PO ×2 (05:32→14:20)
[2023-10-20] MEDS: APIXABAN 2.5 MG TABLET (WCH) PO (05:32)
[2023-10-20 05:35] VITALS: BP 147/74; PULSE 99; RESP 16; TEMP 36.6; O2SAT 98
[2023-10-20 07:11] LABS: Bedside Glucose 123 mg/dL (74-106)
[2023-10-20 07:25] LABS: Anion Gap 6 (5-15); BUN 14 mg/dL (7-18); BUN/Creat Ratio 21.3 RATIO (10-20); Chloride 103 mmol/L (98-107); Creatinine, Serum 0.66 mg/dL (0.55-1.02); EST Glomerular Filtration Rate 98 mL/min (>60); Est Glom Filt Rate - Afr Amer 118 mL/min (>60); Estimated Creatinine Clearance 117.54 ml/min; Glucose 132 mg/dL (74-106); Potassium 3.6 mmol/L (3.5-5.1); Sodium Level 138 mmol/L (136-145)
[2023-10-20 07:40] LABS: Hematocrit 35.8 % (37-47); Hemoglobin 11.5 g/dL (12.0-15.0); Mean Corp Hgb Conc 32.1 g/dL (32-36); Mean Corpuscular Hgb 27.9 pg (27.0-32.0); Mean Corpuscular Volume 86.9 fL (81-99); Mean Platelet Vol. 10.6 fl (6.2-12.0); Platelet Count 225 K/mm3 (150-450); RBC Distribution Width CV 13.2 % (11.6-14.6); RBC Distribution Width SD 41.3 fl (35.1-43.9); Red Blood Count 4.12 M/mm3 (4.2-5.4); White Blood Count 9.7 K/mm3 (4.4-11.0)
--- NOTE | 2023-10-20 10:45 | CASEMGMT ---
RN BUFFY MACHINIST FIRST CLASS CM?to room to meet with patient for initial transition planning/care coordination assessment. RN CM?introduced self and role at [facility]. Pt voices understanding and consents to assessment?at this time. Pt sitting up in chair in no distress at this time. @ bedside. Pt is A/O at this time and answers all questions appropriately. Care providers, pharmacy, and demographics verified/updated at this time. Strata:?1 PCP: Sandra Nowak Specialists:Yony-orthoKing/Caitlin Tilley- endocrinology Preferred [facility]acy: [facility] Insurance: Personal Medicine Prescription Benefit: Yes LNOK: , Moises. Dtr, Melanie. Son Living Arrangements: Lives w/her , son, and 3 grandchildren (that pt and have custody of), in a 2-story home w/basement w/4 steps to enter. FFSU. will go to basement for laundry, so pt does not have to. Pt is independent w/ADL's, except does need some assist w/lower body dressing. Family supportive and assist as needed. Transportation: Pt and both drive. Other family can assist as well. DME: States has the following DME: cane, standard walker (states she thinks she got from a thrift store), lift chair, CPAP, nebulizer, functioning CGM w/supplies. Pt states she has all insulin, pen needles, and pills needed as well. Therapy has recommended a FWW and extended tub bench/transfer bench. Discussed DME companies. Pt would like to get the FWW from [employer] prior to discharge and pt/ would like to get tub bench/transfer bench from [facility] in [place], if they carry them. Neelima, MS3 MORAIMA BAER, made aware of need of FWW and tub bench/transfer bench. HHC/SNF: No hx of either. Pt is scheduled for OP therapy @ [facility] in [place], to begin 10/25. Family able to transport her. Pt wishes to return home and states has no concerns with going home at time of discharge. CM?to follow for any further discharge planning/needs. Pt and voice no further concerns/needs at this time. PLAN: Home w/OP therapy and FWW. Pt would also like a tub/transfer bench Kristofer ARGUETA RN, CM
[2023-10-20] MEDS: Losartan Potassium 50 MG Tablet PO (11:12)
[2023-10-20] MEDS: DULoxetine Hcl 60 MG Capsule PO (11:12)
[2023-10-20] MEDS: Potassium Chloride Oral Tablet 20 MEQ PO (11:12)
[2023-10-20] MEDS: Senna/Docusate Sodium 1 Tablet 2 TABLET PO (11:13)
[2023-10-20] MEDS: hydroCHLOROthiazide 12.5mg 12.5 MG PO (11:13)
[2023-10-20] MEDS: Methimazole 5 MG Tablet 20 MG PO (11:14)
[2023-10-20 11:30] VITALS: BP 121/66; PULSE 74; RESP 14; TEMP 37; O2SAT 99
[2023-10-20] MEDS: Insulin Glargine-YFGN 100 UNIT/ML Pen 15 UNIT SC (11:32)
[2023-10-20] MEDS: Insulin Lispro 100 UNIT/ML INSULN.PEN SC (11:33)
--- NOTE | 2023-10-20 12:49 | PCM.PN.ORT ---
Subjective Subjective Seen and examined. Doing okay. Pain controlled denies fevers chills nausea vomiting shortness of breath or chest pain feels like she is ready for discharge Objective Data Objective Data Vital Signs: Vital Signs Temp Pulse Resp BP Pulse Ox O2 Del Method O2 Flow Rate 98.6 F 74 14 121/66 H 99 Room Air 4 10/20/23 11:30 10/20/23 11:30 10/20/23 11:30 10/20/23 11:30 10/20/23 11:30 10/20/23 11:30 10/19/23 15:55 Oxygen Flow Rate (L/min) 4 Oxygen Delivery Method Room Air Weight: 249 lb Body Mass Index (BMI) 38.9 Intake & Output: Intake and Output for Last 24 Hours 10/18/23 10/19/23 10/20/23 23:59 23:59 23:59 Intake Total 3942.83 / 3942.83 1983 Balance 3942.83 / 3942.83 1983 Lab / Micro Data 10/20/23 06:36 10/20/23 06:36 Labs: Laboratory Results - last 24 hr 10/19/23 14:51: POC Glucose 155 H 10/19/23 20:43: POC Glucose 243 H 10/20/23 06:26: POC Glucose 123 H 10/20/23 06:36: WBC 9.7, RBC 4.12 L, Hgb 11.5 L, Hct 35.8 L, MCV 86.9, MCH 27.9, MCHC 32.1, RDW Std Deviation 41.3, RDW Coeff of Zachary 13.2, Plt Count 225, MPV 10.6, Sodium 138, Potassium 3.6, Chloride 103, Carbon Dioxide 29.0, Anion Gap 6, BUN 14, Creatinine 0.66, Estim Creat Clear Calc 117.54, Est GFR (MDRD) Af Amer 118, Est GFR (MDRD) Non-Af 98, BUN/Creatinine Ratio 21.3 H, Glucose 132 H, Calcium 9.0 Micro: Microbiology 10/07/23 11:20 Swab (Method) Nasal Screen MRSA/MSSA - Final Radiography Diagnostic Testing: Radiology Impression Hip X-Ray 10/19/23 14:35 IMPRESSION: Status post left total hip replacement. There is good alignment. Postoperative soft tissue changes. Electronically Signed: Miki Ivan MD at 14:47 EDT , Physical Exam Const alert and oriented x3 General Appearance: cooperative Extremity Extremity Narrative: Left hip dressing clean dry and intact neurovascular intact left lower extremity EHL tibialis anterior gastrocsoleus intact sensation light touch 24 pedal pulse Assessment & Plan Assessment/Plan (1) S/P total left hip arthroplasty: PLAN: Plan Postop day #1 left total hip arthroplasty PT OT weightbearing as tolerated precautions reviewed DVT prophylaxis SCDs SALINA oneill Eliquis 2.5 mg twice daily for 3 weeks postop Outpatient physical therapy Follow-up in the office 2 weeks or sooner if any questions or concerns
--- NOTE | 2023-10-20 12:51 | DCINST_ITS ---
Discharge Instructions Diet Discharge Diet: 2000 Calorie Control Diet (High blood sugars around the time of surgery increase your risk of infection minimize sweets and carbohydrates) Activity Weight Bearing Status: Weight bearing as tolerated Dressing / Incision Call your doctor if you observe: Shortness of breath and Chest pain Additional Dressing/Incision Instructions:: Do not shower 72hrs. Begin daily showering warm water antibacterial soap postop day #3( 72hrs Post-operatively) and then daily. Leave the dressing on for 72 hours postoperatively then may remove prior to first shower and change dressing daily after this until no drainage for 2 consecutive days then may leave open to air. Follow hip precautions that were reviewed in hospital. Wear compression stockings, may remove at night. Start physical therapy as directed in hospital. Follow prescriptions instructions do not take any other pain medication or differ dosing without consulting your physician. Do not take oral NSAIDs until blood thinner has been completed , then may begin the day after completion if needed . Call Dr. Bhakta's office with any concerns. Follow Up Care Please Follow Up With: Gavin Bhakta DO When: 2 weeks Test Results: Test results from this visit will be discussed in further detail at your follow- up appointment, if applicable. Discharge Plan Admission Admit Date/Time: 10/19/23 14:16 Primary Reason for Your Visit: Left total hip arthroplasty Attending Provider: Tom Payton Primary Care Provider: Sandra Nowak Consulting Providers: Caitlin Tilley; Gavin Bhakta; Katja Rios Discharge Orders/Prescriptions Prescriptions: New acetaminophen 500 mg tablet 1,000 mg PO Q6H Qty: 100 0RF oxycodone 5 mg tablet 5 - 10 mg PO Q6H PRN (Reason: pain) 7 Days Qty: 60 0RF Eliquis 2.5 mg tablet 2.5 mg PO BID Qty: 42 0RF Rx Instructions: Begin morning after surgery. Continued duloxetine 60 mg capsule,delayed release(DR/EC) 60 mg PO DAILY albuterol sulfate [Ventolin HFA] 90 mcg/actuation HFA aerosol inhaler 2 puff inhalation Q6H PRN (Reason: shortness of breath or wheezing) trazodone 150 mg tablet 150 mg PO QHS (DME) Dexcom G6 Transmitter Device See Rx Instructions .ROUTE .MEDSUPPLY Qty: 1 Patient Comments: USE TRANSMITTER NEEDED Rx Instructions: As directed insulin lispro [Humalog KwikPen Insulin] 100 unit/mL insulin pen 1 sliding scale dose subcut USEASDIRECTD tizanidine 4 mg tablet 4 mg PO BID PRN (Reason: muscle spasticity) Patient Comments: TAKE 1 TABLET BY MOUTH TWICE DAILY glipizide 10 mg tablet extended release 24hr 10 mg PO BID ropinirole 1 mg tablet 1 mg PO QHS potassium chloride 20 mEq tablet,ER particles/crystals 20 meq PO QDAY insulin glargine [Lantus Solostar U-100 Insulin] 100 unit/mL (3 mL) insulin pen 30 unit subcut DAILY Qty: 9 5RF losartan-hydrochlorothiazide 100-12.5 mg tablet 1 tab PO DAILY methimazole 10 mg tablet 20 mg PO DAILY Qty: 60 3RF Ozempic 2 mg/dose (8 mg/3 mL) pen injector 2 mg subcut MILLS cholecalciferol (vitamin D3) 1,250 mcg (50,000 unit) capsule 1,250 mcg PO QWEEK Qty: 12 0RF Other Ambulatory Orders: 12 Lead EKG (Routine) Timeframe: 20231012 Location: None Selected Ordered By: Dr. Gavin Bhakta Referrals / Follow Up: Ivone Hurtado MD [Non-Staff] - Disposition Disposition (needs filled in before D/C Order can be placed): Home, Self Care
--- NOTE | 2023-10-20 13:37 | CASEMGMT ---
Addendum entered by Neelima Jaquez 10/20/23 13:46: MORAIMA BAER into pt room, pt aware FWW will be delivered to her room. Provided pt with a rx for transfer bench. Pt states he will brick picker as they may have this in stock. Pt awaiting meds from [facility] pharmacy, aware no copay. Pt denies further needs at this time. Addendum entered by Neelima Jaquez 10/20/23 13:43: TC to [facility] pharmacy to check cost of eliquis, no copay. Original Note: Referral sent to [facility] for FWW via [facility] at this time.
[2023-10-20 15:00] LABS: Bedside Glucose 169 mg/dL (74-106)
== END 2023-10-20 15:45 | disposition home or self-care (01) ==
LOC: SDC 17:26 → MS3 17:26
PROVIDERS: Anesthesiology; Nurse Practitioner Family; Admitting Provider Orthopaedic Surgery; PCP Nurse Practitioner Family; Referring Provider Orthopaedic Surgery; Visit Provider Internal Medicine
PROC: 8E0Y0CZ Robotic Assisted Procedure of Lower Extremity, Open Approach (ICD-10-PCS; CPT 27130; principal; 2023-10-19 10:45)
DX: M16.12 Unilateral primary osteoarthritis, left hip (principal); E66.01 Morbid (severe) obesity due to excess calories; E11.40 Type 2 diabetes mellitus with diabetic neuropathy, unspecified; E11.65 Type 2 diabetes mellitus with hyperglycemia; Z79.4 Long term (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; M51.36 Other intervertebral disc degeneration, lumbar region; K21.9 Gastro-esophageal reflux disease without esophagitis; Z79.84 Long term (current) use of oral hypoglycemic drugs; E05.90 Thyrotoxicosis, unspecified without thyrotoxic crisis or storm; G47.33 Obstructive sleep apnea (adult) (pediatric); I10 Essential (primary) hypertension; E78.00 Pure hypercholesterolemia, unspecified; Z79.899 Other long term (current) drug therapy; Z91.199 Patient's noncompliance with other medical treatment and regimen due to unspecified reason; J45.909 Unspecified asthma, uncomplicated; Z68.38 Body mass index [BMI] 38.0-38.9, adult; R00.0 Tachycardia, unspecified; R60.0 Localized edema
CPT/HCPCS: 27130; S2900; 01214; 36415; 73502; 80048; 80053; 80061; 82043; 82306; 82570; 82962; 82985; 83036; 83735; 84439; 84443; 84445; 84481; 85025; 85027; 85610; 85730; 86376; 86850; 86900; 86901; 87081; 88307; 88311; 93005; 94668; 96365; 96366; 96375; 97162; 97166; 99221; C1713; C1776; J7120; A4216; G0378; J2405; J3475

== ENCOUNTER → 2024-01-10 | Outpatient (CLI) | payer MEDICAID, SELFPAY ==
[2024-01-10 11:48] LABS: Free T3 2.9 pg/mL (2.18-3.98); T4 Free Direct 0.95 ng/dL (0.76-1.46); Thyroid Stim Hormone (TSH) 0.051 uIU/mL (0.358-3.740)
== END | disposition home or self-care (01) ==
PROVIDERS: PCP Nurse Practitioner Family; Referring Provider Nurse Practitioner Family; Visit Provider Nurse Practitioner Family
DX: E05.90 Thyrotoxicosis, unspecified without thyrotoxic crisis or storm (principal)
CPT/HCPCS: 36415; 84439; 84443; 84481

== ENCOUNTER → 2024-04-20 | Outpatient (CLI) | payer MEDICAID, SELFPAY ==
[2024-04-20 16:46] LABS: Absolute Lymphocyte Count 3.32 X10^3/uL (0.83-4.51); Absolute Neutrophil Count 5.9 X10^3/uL (2.0-7.7); Basophil# 0.08 X10^3/uL; Basophil% 0.8 % (0-1); Eosinophil# 0.28 X10^3/uL; Eosinophils% 2.7 % (0-5); Hematocrit 42.9 % (37-47); Hemoglobin 14.1 g/dL (12.0-15.0); Lymphocyte # 3.32 X10^3/ul (0.83-4.51); Lymphocyte % 32.1 % (19-41); Mean Corp Hgb Conc 32.9 g/dL (32-36); Mean Corpuscular Hgb 28.3 pg (27.0-32.0); Mean Corpuscular Volume 86.1 fL (81-99); Mean Platelet Vol. 10.9 fl (6.2-12.0); Monocyte# 0.77 X10^3/uL; Monocyte% 7.4 % (0-10); NRBC Flagged by Analyzer 0 % (0-5); Neutrophil # 5.85 X10^3/uL (2.7-7.7); Neutrophil % 56.6 % (47-70); Platelet Count 303 K/mm3 (150-450); RBC Distribution Width CV 14.4 % (11.6-14.6); RBC Distribution Width SD 44.9 fl (35.1-43.9); Red Blood Count 4.98 M/mm3 (4.2-5.4); White Blood Count 10.3 K/mm3 (4.4-11.0)
[2024-04-20 18:02] LABS: ALB/GLOB Ratio 1.2 RATIO (0.9-2.4); AST(SGOT) 24 U/L (<=31); Alanine Aminotransfer ALT/SGPT 23 U/L (<=34); Albumin, Serum 4.1 g/dL (3.4-4.8); Alkaline Phosphatase 103 U/L (35-104); Anion Gap 12 (5-15); BUN 20 mg/dL (4-19); BUN/Creat Ratio 23.5 RATIO (10-20); Calcium 9.4 mg/dL (7.6-11.0); Carbon Dioxide 24.7 mmol/L (22.0-29.0); Chloride 102 mmol/L (96-108); Creatinine, Serum 0.8 mg/dL (0.6-1.0); EST Glomerular Filtration Rate 79 (>60); Globulin 3.4 g/dL (2.2-4.2); Glucose 92 mg/dL (70-99); Potassium 3.7 mmol/L (3.3-5.1); Protein, Total 7.6 g/dL (5.9-8.4); Sodium Level 138 mmol/L (133-145); Total Bilirubin 0.38 mg/dL (0.00-1.30)
== END | disposition home or self-care (01) ==
LOC: BIMLAB 15:53
PROVIDERS: PCP Internal Medicine; Referring Provider Internal Medicine; Visit Provider Internal Medicine
DX: E11.65 Type 2 diabetes mellitus with hyperglycemia (principal); Z79.4 Long term (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
CPT/HCPCS: 36415; 80053; 85025

== ENCOUNTER → 2024-05-25 | Outpatient (CLI) | payer MEDICAID, SELFPAY | END | disposition home or self-care (01) | LOC: LABSPEC 09:01 | PROVIDERS: PCP Internal Medicine; Referring Provider Advanced Practice Midwife; Visit Provider Advanced Practice Midwife | DX: Z12.4 Encounter for screening for malignant neoplasm of cervix (principal) | CPT/HCPCS: 87624; 88175; G0145 ==

== ENCOUNTER → 2024-06-01 | Outpatient (CLI) | payer MEDICAID, SELFPAY ==
--- NOTE | 2024-06-01 13:32 | BD_ITS ---
PROCEDURE: DEXA BONE DENSITY STUDY 06/01/2024 REASON FOR EXAM: POST MENOPAUSAL F, age 63 y/o . Postmenopausal. TECHNIQUE: DXA scan of the lumbar spine and right hip, using make and model. REFERENCE LINKS: ISCD Adult Positions COMPARISON: None FINDINGS: BMD and T-SCORES Lumbar spine: 1.367 g/cm2, T-Score 2.9 L1 through L4 Right femoral neck: 0.710 g/cm2, T-Score -1.3 Femoral neck comparison data not recommended for monitoring change. Right total hip: 0.945 g/cm2, T-Score 0.0 Change from prior: 1.0 Fracture Risk Calculation: FRAX (10-year Fracture Risk) Score: FRAX scores should never be reported in a patient with osteoporosis on DEXA or for any patient that is on bone medication. The patient doesmeet the pharmacological treatment recommendations for prevention of osteoporosis BD/Dexa Bone Density Study IMPRESSION: OSTEOPENIA. Recommend follow-up as clinically warranted. Reading Location: [place] [id number]
--- NOTE | 2024-06-01 13:32 | BI_ITS ---
EXAM: SCRN MAMM (CAD)W/PERLA BILAT 06/01/2024 CLINICAL HISTORY: F, Age 63 y/o , BREAST CANCER SCREENING TECHNIQUE: Bilateral screening digital breast tomosynthesis with 2D and 3D images. Computer aided detection. COMPARISON: Prior exam(s) dated 02/06/2020, 01/30/2019. FINDINGS: TISSUE DENSITY: The breast tissue is composed of scattered area of fibroglandular density.. Bilateral Breast Mammographic Findings: No significant masses, calcifications or other abnormalities are identified. BI/SCRN MAMM (CAD)W/PERLA BILAT IMPRESSION: Right Breast: BIRADS 1 NEGATIVE. Left Breast: BIRADS 1 NEGATIVE. OVERALL FINAL ASSESSMENT: BIRADS 1 NEGATIVE. RECOMMENDATION: Routine annual follow-up in 1 Year A letter with findings and recommendations will be mailed to the patient. Reading Location: [id number]
== END | disposition home or self-care (01) ==
LOC: OPBD 13:31
PROVIDERS: PCP Internal Medicine; Referring Provider Internal Medicine; Visit Provider Internal Medicine
DX: Z12.31 Encounter for screening mammogram for malignant neoplasm of breast (principal); Z78.0 Asymptomatic menopausal state
CPT/HCPCS: 77063; 77067; 77080

== ENCOUNTER 2024-07-06 17:46 | Observation (INO) | payer MEDICAID, SELFPAY ==
[2024-07-06 17:46] VITALS: BP 146/92; PULSE 111; RESP 16; TEMP 36.2; O2SAT 98; BMI 37.8
[2024-07-06 20:25] VITALS: BP 92/67; PULSE 93; RESP 16; O2SAT 98
--- NOTE | 2024-07-06 20:25 | EKG12_ITS ---
Test Reason : Blood Pressure : */* mmHG Vent. Rate : 103 BPM Atrial Rate : 103 BPM P-R Int : 154 ms QRS Dur : 88 ms QT Int : 358 ms P-R-T Axes : 38 -1 138 degrees QTcB Int : 468 ms Sinus tachycardia T wave abnormality, consider lateral ischemia Abnormal ECG Confirmed by MARIAJOSE JOHNSON MD ([id number]), copy editor RAQUEL NEELY ([id number]) on 07/10/2024 8:42:59 AM Referred By: Confirmed By: MARIAJOSE JOHNSON MD
--- NOTE | 2024-07-06 20:27 | EX.ED.DYSGE1 ---
HPI History of Present Illness Chief Complaint: Abn Labs Narrative Narrative: 63-year-old female past medical history of diabetes, on Ozempic as well as Lantus presents at the direction of her primary care provider's office with concern for metabolic acidosis. She and her daughter relate history that over the last week she has had abdominal pain, nausea, vomiting, and diarrhea, she started to improve, however she still feels tired and fatigued with low energy. She saw her garbage pick up worker today, and had laboratory work drawn. She states that they are trying to wean her off Ozempic and insulin. She states that her blood sugars have been controlled recently. She does have type 2 diabetes, but was told that there is concerned that she has metabolic acidosis. This was based off the laboratory work that was drawn today. [facility] Medical History Anxiety and depression Health care maintenance Wears contact lenses Depression Thyroid disease Insulin dependent diabetes mellitus Ambulates with cane Arthritis PONV (postoperative nausea and vomiting) High cholesterol Dietary restriction Non-smoker CPAP (continuous positive airway pressure) dependence Sleep apnea History of stress test Right rotator cuff tear Osteoarthritis of left hip Left hip pain Impingement of right shoulder Right shoulder pain Diabetic neuropathy Mild depression Hyperlipidemia GERD (gastroesophageal reflux disease) Muscle cramps Bilateral lower extremity edema Endometrial thickening on ultrasound Patellar fracture HTN (hypertension) Type 2 diabetes mellitus GITA (obstructive sleep apnea) Home Medications Medication Instructions Recorded Last Taken Type albuterol sulfate 90 mcg/actuation 2 puff inhalation Q6H PRN 05/20/21 07/03/24 History aerosol inhaler (Ventolin HFA) shortness of breath or wheezing blood-glucose transmitter (Dexcom #1 ea 01/04/23 Unknown History G6 Transmitter device) trazodone 150 mg tablet 75 mg PO QHS 01/04/23 07/03/24 History glipizide 10 mg tablet, extended 10 mg PO BID 08/05/23 07/03/24 History release 24 hr ropinirole 1 mg tablet 1 mg PO QHS 08/05/23 07/05/24 History losartan 100 1 tab PO DAILY 10/07/23 07/03/24 History mg-hydrochlorothiazide 12.5 mg tablet insulin lispro 100 unit/mL 5 unit (0.05 mL) subcut TID #15 mL 12/24/23 Unknown Rx subcutaneous pen (Humalog KwikPen (U-100) Insulin) semaglutide 2 mg/dose (8 mg/3 mL) 2 mg (0.75 mL) subcut MILLS #9 mL 12/24/23 Unknown Rx subcutaneous pen injector (Ozempic) empagliflozin 25 mg tablet 25 mg PO QDAY #30 tabs 01/10/24 07/06/24 Rx (Jardiance) Held on 07/06/24. Instructions: MD Ordered methimazole 10 mg tablet 20 mg (2 x 10 mg) PO DAILY #60 tabs 03/14/24 07/03/24 Rx blood sugar diagnostic (OneTouch #100 ea 04/13/24 Unknown Rx Ultra Test strips) cholecalciferol (vitamin D3) 25 25 mcg PO QDAY 04/13/24 07/03/24 History mcg (1,000 unit) capsule duloxetine 60 mg capsule,delayed 60 mg PO DAILY #90 caps 04/13/24 07/03/24 Rx release potassium chloride 20 mEq 20 meq PO QDAY #90 tabs 04/13/24 07/03/24 Rx tablet,extended release(part/cryst) insulin glargine 100 unit/mL (3 14 unit subcut DAILY 04/20/24 Unknown History mL) subcutaneous pen (Lantus Solostar U-100 Insulin) calcium carbonate PO 07/06/24 Unknown History mecobalamin (vitamin B12) 500 mcg 500 mcg PO DAILY 07/06/24 07/03/24 History chewable tablet Allergy/AdvReac Type Severity Reaction Status Date / Time No Known Allergies Allergy Verified 07/06/24 17:47 Family History Father Diabetes Hypertension COPD (chronic obstructive pulmonary disease) Heart disease Kidney disease Brother Heart disease Hypertension Diabetes Pancreatic cancer Mother A-fib Heart disease Surgical History History of total left hip replacement History of surgical procedure on eye proper using laser S/P foot surgery, left Tubal ligation status H/O section Hx of cholecystectomy H/O foot surgery Social History adopted: No household members: spouse, family and other details: has step son and custody of 3 grandchildren housing: house number of children: 3 current occupational status: employed current occupation: [employer] living pets and animals: Yes pets and animals: cat(s) and dog(s) history of recent travel: Yes () out of state: Yes out of country: No Smoking Status: Never smoker Electronic Cigarette Use: not used second hand exposure: No alcohol intake: never substance use type: does not use well-balanced diet: about half the time caffeine: Yes what type of physical activity do you participate in: none jered/quaker: Presybeterian seatbelt use: sometimes do you feel safe at home: Yes additional social history: - Moises ROS ROS ED ROS Narrative Review for nausea, vomiting, diarrhea, and abdominal pain for the last week, improving. No fevers or chills. No shortness of breath or chest pain. No dysuria or hematuria. Endorses fatigue and generalized weakness. EXAM Physical Exam Narrative Exam Narrative: Afebrile. Vital signs noted. Nontoxic-appearing. Cardiovascular examination reveals mild tachycardia. Lungs clear to auscultation bilaterally. Abdomen is soft and nontender with positive bowel sounds. No guarding or rebound. Neurological examination is nonfocal and nonlateralizing. She is awake, alert, and interactive, and answering questions appropriately. Const Vital Signs: 07/06/24 17:46 07/06/24 20:25 07/06/24 21:33 Temperature 97.2 F L Temperature Source Temporal Pulse Rate 111 H 93 Respiratory Rate 16 16 Respiratory Effort Normal Respiratory Pattern Normal Blood Pressure 146/92 H 92/67 Blood Pressure Mean 110 75 Pulse Ox 98 98 Oxygen Delivery Method Room Air Room Air 07/06/24 22:00 Temperature Temperature Source Pulse Rate 93 Respiratory Rate 16 Respiratory Effort Respiratory Pattern Blood Pressure 145/98 H Blood Pressure Mean 113 Pulse Ox 97 Oxygen Delivery Method Room Air MDM MDM MDM Narrative Medical decision making narrative: Differential diagnosis includes but not limited to starvation ketosis versus dehydration versus other electrolyte abnormality versus diabetic ketoacidosis versus hyperosmolar nonketotic state. I reviewed her labs from today both in the computer and on the patient's telephone. She had a CO2 of 11 as well as an elevated blood sugar with elevated anion gap of 19. I can see why there was concern for metabolic acidosis. She may have been mildly dehydrated with a sodium of 132. She will be bolused normal saline 2 L intravenously and DKA workup started. Repeat laboratories will be drawn as well including CBC and CMP as well as beta hydroxybutyrate and venous blood gas to check her pH. I reviewed her venous blood gas and she has a pH of 7.277 with CO2 of 35 and PO2 of 33. HCO3 negative is 16.4 and low. I reviewed her laboratory work in WBC count 11.2 which think is nonspecific, hemoglobin 17.9 and hemoconcentrated with hematocrit 52.2 insistent with dehydration, platelet count normal at 325. Electrolyte panel shows hyponatremia with sodium of 132 but normal potassium of 3.4, CO2 is low at 15.5 with BUN of 62 and creatinine elevated at 1.52. When compared to prior labs this is an acute on kidney injury and slightly worsened from this morning. Glucose is elevated at 186 and anion gap elevated at 17 but her beta hydroxybutyrate is 0.3 and normal. Urinalysis is negative for ketones. There are 0-5 WBCs. I do not feel that she requires antibiotics for UTI. I reviewed the radiology report of the CT of the abdomen and pelvis and there is no acute process but she does have a diarrheal illness, no thickened colon wall, no obstruction. Given her acute kidney injury and dehydration along with mild acidosis, I will discuss patient with the hospitalist for admission versus observation. Patient discussed with Dr. Weiner. Disposition is assigned to observation in stable condition. History & Record Review Discussion w/independent historian: Patient Additional record(s) reviewed:: Prior labs Lab Data Attestation: I reviewed the patient's lab results. Labs: Laboratory Results - last 24 hr 07/06/24 07/06/24 07/06/24 20:05 20:46 20:49 WBC 11.2 H RBC 6.29 H Hgb 17.9 H Hct 52.2 H MCV 83.0 MCH 28.5 MCHC 34.3 RDW Std Deviation 42.5 RDW Coeff of Zachary 14.2 Plt Count 325 MPV 11.1 Immature Gran % (Auto) 0.400 Neut % (Auto) 56.3 Lymph % (Auto) 32.3 [place] % (Auto) 9.9 Eos % (Auto) 0.7 Baso % (Auto) 0.4 Absolute Neuts (auto) 6.3 Absolute Lymphs (auto) 3.61 Nucleated RBC % 0 Sodium 132 L Potassium 3.4 Chloride 100 Carbon Dioxide 15.5 L Anion Gap 17 H BUN 62 H Creatinine 1.52 H Estim Creat Clear Calc 49.55 L Est GFR (MDRD) Non-Af 39 L BUN/Creatinine Ratio 40.9 H Glucose 186 H Calcium 9.3 Total Bilirubin 0.66 AST 29 ALT 34 Alkaline Phosphatase 133 H Total Protein 8.8 H Albumin 4.5 Globulin 4.3 H Albumin/Globulin Ratio 1.0 b-Hydroxybutyric mmol/L 0.3 Urine Color Yellow Urine Clarity Clear Urine pH 5.0 Ur Specific Hutchins 1.025 Urine Protein 30 H Urine Glucose (UA) Normal Urine Ketones Negative Urine Occult Blood 10 H Urine Nitrite Negative Urine Bilirubin 1 H Urine Urobilinogen Normal Ur Leukocyte Esterase Negative Urine RBC 0 SEEN Urine WBC 0-5 SEEN Ur Squamous Epith Cells 0-5 SEEN Urine Bacteria 1+ Hyaline Casts 5-10 SEEN Fine Granular Casts 0-5 SEEN Urine Mucus 0 SEEN POC Glucose 189 H 07/06/24 22:08 WBC RBC Hgb Hct MCV MCH MCHC RDW Std Deviation RDW Coeff of Zachary Plt Count MPV Immature Gran % (Auto) Neut % (Auto) Lymph % (Auto) [place] % (Auto) Eos % (Auto) Baso % (Auto) Absolute Neuts (auto) Absolute Lymphs (auto) Nucleated RBC % Sodium Potassium Chloride Carbon Dioxide Anion Gap BUN Creatinine Estim Creat Clear Calc Est GFR (MDRD) Non-Af BUN/Creatinine Ratio Glucose Calcium Total Bilirubin AST ALT Alkaline Phosphatase Total Protein Albumin Globulin Albumin/Globulin Ratio b-Hydroxybutyric mmol/L Urine Color Urine Clarity Urine pH Ur Specific Hutchins Urine Protein Urine Glucose (UA) Urine Ketones Urine Occult Blood Urine Nitrite Urine Bilirubin Urine Urobilinogen Ur Leukocyte Esterase Urine RBC Urine WBC Ur Squamous Epith Cells Urine Bacteria Hyaline Casts Fine Granular Casts Urine Mucus POC Glucose 156 H ABG Data ABG results: ABG 07/06/24 20:38 Specimen Type [place] Sample Site Not entered O2 % 21.0 VBG pH 7.28 L VBG pO2 34 VBG HCO3 16 L VBG Total CO2 17 L VBG O2 Sat (Calc) 58 VBG Base Excess -10 L POC Mix VBG pCO2 Pt Tmp 35.0 L O2 Delivery Device Not entered Radiography Diagnostic Testing: Clinical Impression(s) from Imaging Studies Abdomen/Pelvis CT 07/06/24 20:28 IMPRESSION: 1. Fluid contents throughout the colon, in keeping with the reported history of diarrheal illness. No significant inflammatory changes of the bowel, nor evidence of obstruction. 2. Colonic diverticulosis. 3. Multivessel coronary calcifications. Reading Location: [facility] Management Discussion w/another healthcare provider: Hospitalist (Dr. Weienr) Discharge Plan Dx/Rx/DC Orders Clinical Impression: Diarrhea, Hyponatremia, Acute kidney injury Disposition Disposition: Acute Care Hospital [facility]
--- NOTE | 2024-07-06 20:28 | CT_ITS ---
PROCEDURE: ABDOMEN/PELVIS W IV CONT ONLY 07/06/2024 REASON FOR EXAM: DIARRHEA TECHNIQUE: Abdomen and pelvis CT with intravenous contrast. Coronal and Sagittal reconstruction series were provided. PATIENT PREPARATION: Per protocol ORAL CONTRAST TYPE: None. CONTRAST: 100 mL Isovue 300 intravenous contrast One or more dose reduction techniques were used (e.g., Automated exposure control, adjustment of the mA and/or kV according to patient size, use of iterative reconstruction technique. RADIATION DOSE SUMMARY: CTDlvol: 23.2 mGy DLP: 1305 mGycm COMPARISON: None FINDINGS: Lung bases: Areas of linear scarring or atelectasis at the lung bases. No pleural effusion. Multivessel coronary calcifications. Liver: Hypodensity along the gallbladder fossa may represent focal fat. Gallbladder: Surgically absent. Spleen: Unremarkable. Pancreas: Normal size without evidence of mass surrounding inflammation or ductal dilation. Adrenals: Unremarkable. Kidneys: No hydronephrosis or urinary stone. Bladder: Unremarkable. Reproductive Organs: Hypodensity measuring 1.1 cm in the right aspect of the uterus may represent a leiomyoma. Bowel: No obstruction or inflammation. Fluid contents throughout the colon. Normal appendix. Colonic diverticulosis. Small duodenal diverticulum near the pancreatic head. Lymph nodes: No significant lymphadenopathy. Vasculature: Mild aortic atherosclerosis. Bones: Degenerative changes of the spine. Left hip arthroplasty. Transitional lumbosacral anatomy. CT/Abdomen/Pelvis W IV Cont ONLY IMPRESSION: 1. Fluid contents throughout the colon, in keeping with the reported history o f diarrheal illness. No significant inflammatory changes of the bowel, nor evidence of obstruction. 2. Colonic diverticulosis. 3. Multivessel coronary calcifications. Reading Location: [id number]
[2024-07-06] MEDS: 0.9% Normal Saline (1000mL) 1,000 ML 999 ML IV ×2 (20:30→22:04)
[2024-07-06 20:42] LABS: Blood Gas Specimen Type VEN; O2 Delivery Device Not entered; SITE Not entered; VBG BASE EXCESS -10 mmol/L (-1.0-3.5); VBG Bicarbonate 16 mmol/L (22-26); VBG PO2 34 mmHg (25-40); VBG SO2 58 % (50-70); VBG TCO2 17 mmol/L (23-33); VBG pH 7.28 (7.32-7.42)
[2024-07-06 20:49] LABS: Absolute Lymphocyte Count 3.61 X10^3/uL (0.83-4.51); Absolute Neutrophil Count 6.3 X10^3/uL (2.0-7.7); Basophil# 0.05 X10^3/uL; Basophil% 0.4 % (0-1); Eosinophil# 0.08 X10^3/uL; Eosinophils% 0.7 % (0-5); Hematocrit 52.2 % (37-47); Hemoglobin 17.9 g/dL (12.0-15.0); Lymphocyte # 3.61 X10^3/ul (0.83-4.51); Lymphocyte % 32.3 % (19-41); Mean Corp Hgb Conc 34.3 g/dL (32-36); Mean Corpuscular Hgb 28.5 pg (27.0-32.0); Mean Platelet Vol. 11.1 fl (6.2-12.0); Monocyte% 9.9 % (0-10); NRBC Flagged by Analyzer 0 % (0-5); Neutrophil # 6.28 X10^3/uL (2.7-7.7); Neutrophil % 56.3 % (47-70); Platelet Count 325 K/mm3 (150-450); RBC Distribution Width CV 14.2 % (11.6-14.6); RBC Distribution Width SD 42.5 fl (35.1-43.9); Red Blood Count 6.29 M/mm3 (4.2-5.4); White Blood Count 11.2 K/mm3 (4.4-11.0)
[2024-07-06 20:58] LABS: Mucous, Urine 0 SEEN /hpf (<or=2+); Red Blood Cells-Urine 0 SEEN /hpf (0-5)
[2024-07-06 21:01] LABS: Color, Urine Yellow (Yellow); Glucose, Dipstick Normal (Normal); Ketone-Dipstick Negative (Negative); Leukocyte Esterase-Dipstick Negative /ul (Negative); Nitrite-Dipstick Negative (Negative); Occult Blood-Urine 10 /ul (Negative); Protein-Dipstick 30 mg/dl (Negative); Specific Gravity, Urine 1.025 (1.002-1.030); Urine Clarity Clear (Clear); Urine Urobilinogen Normal (Normal)
[2024-07-06 21:07] LABS: Bedside Glucose 189 mg/dL (74-106)
[2024-07-06 21:13] LABS: Urine Bilirubin Dipstick 1 mg/dL (Negative)
[2024-07-06 21:22] LABS: AST(SGOT) 29 U/L (<=31); Alanine Aminotransfer ALT/SGPT 34 U/L (<=34); Albumin, Serum 4.5 g/dL (3.4-4.8); Alkaline Phosphatase 133 U/L (35-104); Anion Gap 17 (5-15); BETA-HYDROXYBUTYRATE 0.3 mmol/L (0.0-0.3); BUN 62 mg/dL (4-19); BUN/Creat Ratio 40.9 RATIO (10-20); Calcium,Total 9.3 mg/dL (7.6-11.0); Carbon Dioxide 15.5 mmol/L (21.0-32.0); Chloride 100 mmol/L (98-108); Creatinine, Serum 1.52 mg/dL (0.70-1.20); EST Glomerular Filtration Rate 39 (>60); Estimated Creatinine Clearance 49.55 ml/min (50-250); Globulin 4.3 g/dL (2.2-4.2); Glucose 186 mg/dL (70-99); Potassium 3.4 mmol/L (3.3-5.1); Protein, Total 8.8 g/dL (5.9-8.4); Sodium Level 132 mmol/L (133-145); Total Bilirubin 0.66 mg/dL (0.00-1.30)
[2024-07-06 22:00] VITALS: BP 145/98; PULSE 93; RESP 16; O2SAT 97
[2024-07-06 22:10] LABS: White Blood Cells 0-5 SEEN /hpf (0-5)
[2024-07-06 22:11] LABS: Squamous Epithelial Cells - UA 0-5 SEEN /hpf (5-10)
[2024-07-06 22:12] LABS: Hyaline Cast 5-10 SEEN /lpf (0-5)
[2024-07-06 22:13] LABS: Bacteria 1+ /hpf (None Seen); Fine Granular Cast- Urine 0-5 SEEN /lpf (0-5)
[2024-07-06 22:26] LABS: Bedside Glucose 156 mg/dL (74-106)
[2024-07-06] MEDS: Ondansetron 4 MG/2 ML Vial IV (22:46)
[2024-07-06 23:01] VITALS: BP 125/95; PULSE 87; RESP 24; TEMP 36.6; O2SAT 100
[2024-07-06 23:22] LABS: Bedside Glucose 134 mg/dL (74-106)
--- NOTE | 2024-07-07 00:07 | PCM.HP.STD ---
HPI - General General Date of Admission: 07/06/24 Date of Service: 07/07/24 Chief Complaint: metabolic acidosis HPI Narrative MACY RIVAS, is a 63 F with past medical history of type 2 diabetes on Ozempic, Jardiance, Lantus and hyperthyroidism on methimazole, obesity, hypertension on lisinopril with hydrochlorothiazide Jardiance related recurrent vaginal yeast infection who was referred to the ED for concerns regarding metabolic acidosis in the setting of ongoing diarrhea for the last week with associated nausea, decreased p.o. intake. She has stopped taking most of her medications for the last one week due to her symptoms. Per the patient appetite has been steadily decreasing but over the last week she has been having more diarrhea or vomiting anorexia. Her grandchildren are also sick recently. Overall her nutritional intake is on optimum as she is taking care of 3 grandchildren is not able to follow-up on low-carb diet. At the time of evaluation in the ED she was noted to have a blood gas of pH 7.2 with PCO2 of 35 and PO2 of 33, bicarb 16.4, urine was negative for ketones however was BUN was 62 and creatinine was elevated to 1.5. WBC 11.2, hemoglobin 17.9, platelet 325, sodium 132, potassium 3.4, anion gap of 17, her BUN dylan from 56-62 during her ED evaluation and creatinine was 1.5 despite fluid therapy. Last A1c checked on 07/06 was 7.1 calcium 9.3, alkaline phosphatase 133, total protein 8.8, albumin 4.5. Urine analysis negative for infection urine ketones negative. POC glucose was 134 PFSH Medical History Anxiety and depression Health care maintenance Wears contact lenses Depression Thyroid disease Insulin dependent diabetes mellitus Ambulates with cane Arthritis PONV (postoperative nausea and vomiting) High cholesterol Dietary restriction Non-smoker CPAP (continuous positive airway pressure) dependence Sleep apnea History of stress test Right rotator cuff tear Osteoarthritis of left hip Left hip pain Impingement of right shoulder Right shoulder pain Diabetic neuropathy Mild depression Hyperlipidemia GERD (gastroesophageal reflux disease) Muscle cramps Bilateral lower extremity edema Endometrial thickening on ultrasound Patellar fracture HTN (hypertension) Type 2 diabetes mellitus GITA (obstructive sleep apnea) Home Medications Medication Instructions Recorded Last Taken Type albuterol sulfate 90 mcg/actuation 2 puff inhalation Q6H PRN 05/20/21 07/03/24 History aerosol inhaler (Ventolin HFA) shortness of breath or wheezing blood-glucose transmitter (Dexcom #1 ea 01/04/23 Unknown History G6 Transmitter device) trazodone 150 mg tablet 75 mg PO QHS 01/04/23 07/03/24 History glipizide 10 mg tablet, extended 10 mg PO BID 08/05/23 07/03/24 History release 24 hr ropinirole 1 mg tablet 1 mg PO QHS 08/05/23 07/05/24 History losartan 100 1 tab PO DAILY 10/07/23 07/03/24 History mg-hydrochlorothiazide 12.5 mg tablet insulin lispro 100 unit/mL 5 unit (0.05 mL) subcut TID #15 mL 12/24/23 Unknown Rx subcutaneous pen (Humalog KwikPen (U-100) Insulin) semaglutide 2 mg/dose (8 mg/3 mL) 2 mg (0.75 mL) subcut MILLS #9 mL 12/24/23 Unknown Rx subcutaneous pen injector (Ozempic) empagliflozin 25 mg tablet 25 mg PO QDAY #30 tabs 01/10/24 07/06/24 Rx (Jardiance) Held on 07/06/24. Instructions: MD Ordered methimazole 10 mg tablet 20 mg (2 x 10 mg) PO DAILY #60 tabs 03/14/24 07/03/24 Rx blood sugar diagnostic (OneTouch #100 ea 04/13/24 Unknown Rx Ultra Test strips) cholecalciferol (vitamin D3) 25 25 mcg PO QDAY 04/13/24 07/03/24 History mcg (1,000 unit) capsule duloxetine 60 mg capsule,delayed 60 mg PO DAILY #90 caps 04/13/24 07/03/24 Rx release potassium chloride 20 mEq 20 meq PO QDAY #90 tabs 04/13/24 07/03/24 Rx tablet,extended release(part/cryst) insulin glargine 100 unit/mL (3 14 unit subcut DAILY 04/20/24 Unknown History mL) subcutaneous pen (Lantus Solostar U-100 Insulin) calcium carbonate PO 07/06/24 Unknown History mecobalamin (vitamin B12) 500 mcg 500 mcg PO DAILY 07/06/24 07/03/24 History chewable tablet Allergy/AdvReac Type Severity Reaction Status Date / Time No Known Allergies Allergy Verified 07/06/24 17:47 Family History Father Diabetes Hypertension COPD (chronic obstructive pulmonary disease) Heart disease Kidney disease Brother Heart disease Hypertension Diabetes Pancreatic cancer Mother A-fib Heart disease Surgical History History of total left hip replacement History of surgical procedure on eye proper using laser S/P foot surgery, left Tubal ligation status H/O section Hx of cholecystectomy H/O foot surgery Social History adopted: No household members: spouse, family and other details: has step son and custody of 3 grandchildren housing: house number of children: 3 current occupational status: employed current occupation: [employer] pets and animals: Yes pets and animals: cat(s) and dog(s) history of recent travel: Yes () out of state: Yes out of country: No Smoking Status: Never smoker Electronic Cigarette Use: not used second hand exposure: No alcohol intake: never substance use type: does not use well-balanced diet: about half the time caffeine: Yes what type of physical activity do you participate in: none jered/muslim: Tenriism seatbelt use: sometimes do you feel safe at home: Yes additional social history: - Moises ROS Review of Systems ROS Unobtainable: Denies due to encephalopathy, due to endotracheal tube, due to mental condition, due to mental status or other Constitutional Constitutional: Denies anorexia, change in weight, chills, fatigue, fever(s), malaise, night sweats, weakness or other Eyes Eyes: Denies blurry vision, change in eye color, change in vision, discharge from eye(s), double vision, erythema, eye pain, loss of vision or other ENT HEENT: Denies abnormal hearing, dysphagia, ear pain, epistaxis, headache(s), hearing loss, nasal congestion, nasal discharge, post nasal drip, sinus pressure, sore throat or other Cardiovascular Cardiovascular: Denies chest pain, claudication, dyspnea on exertion, edema, lightheadedness, orthopnea, palpitations, paroxysmal nocturnal dyspnea, rapid heart rate, syncope or other Respiratory/Chest Respiratory/Chest: Denies cough, dyspnea, excessive phlegm production, hemoptysis, productive cough, shortness of breath at rest, shortness of breath with exertion, wheezing or other Gastrointestinal Gastrointestinal: Reports diarrhea, dyspepsia, nausea and vomiting Genitourinary Genitourinary: Denies burning urination, difficulty urinating, dysuria, hematuria, nocturia, urinary frequency, urinary hesitancy, urinary incontinence, urinary urgency or other Musculoskeletal Musculoskeletal: Denies arthralgias, back pain, joint pain, joint stiffness, joint swelling, myalgias, neck pain or other Neurologic Neurologic: Denies abnormal gait, abnormal speech, confusion, disequilibrium, dizziness, focal weakness, headache(s), numbness, paresthesias, seizure-like activity, seizures, syncope, tingling, tremor(s) or other Psychiatric Psychiatric: Denies anxiety, depression, homicidal ideation, suicidal ideation or other Endocrine Endocrinology: Denies change in body appearance, cold intolerance, excessive sweating, heat intolerance, polydipsia, polyuria or other Hematologic/Lymphatic Hematologic/Lymphatic: Denies anemia, easy bleeding, easy bruising, lymphadenopathy or other Allergic/Immunologic Allergic/Immunologic: Denies rhinitis, hives, eczemia, asthma or other Vital Signs Vital Signs Vital Signs: 07/06/24 17:46 07/06/24 20:25 07/06/24 21:33 Temperature 97.2 F L Temperature Source Temporal Pulse Rate 111 H 93 Respiratory Rate 16 16 Respiratory Effort Normal Respiratory Pattern Normal Blood Pressure 146/92 H 92/67 Blood Pressure Mean 110 75 Pulse Ox 98 98 Oxygen Delivery Method Room Air Room Air 07/06/24 22:00 07/06/24 23:01 Temperature 97.9 F Temperature Source Pulse Rate 93 87 Respiratory Rate 16 24 H Respiratory Effort Respiratory Pattern Blood Pressure 145/98 H 125/95 H Blood Pressure Mean 113 105 Pulse Ox 97 100 Oxygen Delivery Method Room Air Weight Weight: 241 lb 6.499 oz Body Mass Index (BMI) 37.8 Physical Exam Const alert and oriented x3 HEENT normocephalic and head/scalp atraumatic Eyes PERRL and EOMs intact bilaterally Neck no lymphadenopathy and supple Resp normal respiratory effort and no retractions Cardio regular rate and regular rhythm GI normal to inspection, nondistended, normoactive bowel sounds, soft to palpation and non-tender Neuro oriented x3 and CN's II-XII intact bilaterally Psych affect normal Results Medical Records Data Attestation: I reviewed the patient's medical records Lab / Micro Data Attestation: I reviewed the patient's lab results. 07/06/24 20:05 07/06/24 20:05 Labs: Laboratory Results - last 24 hr 07/06/24 20:05: WBC 11.2 H, RBC 6.29 H, Hgb 17.9 H, Hct 52.2 H, MCV 83.0, MCH 28.5, MCHC 34.3, RDW Std Deviation 42.5, RDW Coeff of Zachary 14.2, Plt Count 325, MPV 11.1, Immature Gran % (Auto) 0.400, Neut % (Auto) 56.3, Lymph % (Auto) 32.3, [place] % (Auto) 9.9, Eos % (Auto) 0.7, Baso % (Auto) 0.4, Absolute Neuts (auto) 6.3, Absolute Lymphs (auto) 3.61, Nucleated RBC % 0, Sodium 132 L, Potassium 3.4, Chloride 100, Carbon Dioxide 15.5 L, Anion Gap 17 H, BUN 62 H, Creatinine 1.52 H, Estim Creat Clear Calc 49.55 L, Est GFR (MDRD) Non-Af 39 L, BUN/Creatinine Ratio 40.9 H, Glucose 186 H, Calcium 9.3, Total Bilirubin 0.66, AST 29, ALT 34, Alkaline Phosphatase 133 H, Total Protein 8.8 H, Albumin 4.5, Globulin 4.3 H, Albumin/Globulin Ratio 1.0, b-Hydroxybutyric mmol/L 0.3 07/06/24 20:46: Urine Color Yellow, Urine Clarity Clear, Urine pH 5.0, Ur Specific [place] 1.025, Urine Protein 30 H, Urine Glucose (UA) Normal, Urine Ketones Negative, Urine Occult Blood 10 H, Urine Nitrite Negative, Urine Bilirubin 1 H, Urine Urobilinogen Normal, Ur Leukocyte Esterase Negative, Urine RBC 0 SEEN, Urine WBC 0-5 SEEN, Ur Squamous Epith Cells 0-5 SEEN, Urine Bacteria 1+, Hyaline Casts 5-10 SEEN, Fine Granular Casts 0-5 SEEN, Urine Mucus 0 SEEN 07/06/24 20:49: POC Glucose 189 H 07/06/24 22:08: POC Glucose 156 H 07/06/24 23:04: POC Glucose 134 H ABG Data ABG results: ABG 07/06/24 20:38 Specimen Type CAR[place] Sample Site Not entered O2 % 21.0 VBG pH 7.28 L VBG pO2 34 VBG HCO3 16 L VBG Total CO2 17 L VBG O2 Sat (Calc) 58 VBG Base Excess -10 L POC Mix VBG pCO2 Pt Tmp 35.0 L O2 Delivery Device Not entered Imaging Radiology Impression Abdomen/Pelvis CT 07/06/24 20:28 IMPRESSION: 1. Fluid contents throughout the colon, in keeping with the reported history of diarrheal illness. No significant inflammatory changes of the bowel, nor evidence of obstruction. 2. Colonic diverticulosis. 3. Multivessel coronary calcifications. Reading Location: [id number] Assessment & Plan Assessment/Plan (1) Acute kidney injury: PLAN: Plan 63-year-old female with a history of type 2 diabetes, hyperthyroidism, hypertension presents to the ED with concerns regarding metabolic acidosis as well as ERNIE. The likely reason for her ERNIE is related to her ongoing diarrhea, diuretics for hypertension as well as decreased p.o. intake possibly secondary to the infection as well as Ozempic. Metabolic acidosis could be because of starvation but there is no associated ketosis, differentials also include euglycemic DKA with anion gap. She has not been taking any of her medications for the last 1 week and that may explain why her laboratory findings are not consistent with any 1 particular diagnosis. #ERNIE - Likely prerenal - Normal saline at the rate 100 mL/h - Repeat BMP in the morning - Admit for further observation #Metabolic acidosis - No urine ketones present - Euglycemic at this time - Hold Ozempic at the time of discharge - Will follow-up with endocrinology as an outpatient - Nutrition consult for diabetic education #Hyperthyroidism - Continue methimazole - TSH, T3-T4 levels # Type 2 - Continue insulin, - Hold Ozempic and Jardiance for now # HTN - continue to hold medications for now - can discharge on lisinopril if the creatinine improves with fluid therapy # Obesity - continue outpatient evaluation by endocrinology # GITA - Noted # Asthma - asymptomatic at present # DVT: low risk # Code: Full code
[2024-07-07] MEDS: Lactated Ringers 1,000 ML 100 ML IV ×3 (00:36→20:41)
[2024-07-07 00:40] VITALS: BMI 37.9
[2024-07-07 00:54] LABS: Bedside Glucose 163 mg/dL (74-106)
[2024-07-07 00:57] VITALS: BP 134/87; PULSE 90; RESP 17; TEMP 35.7; O2SAT 100
[2024-07-07 01:33] LABS: Free T3 4.1 pg/mL (2.18-3.98)
[2024-07-07 04:33] VITALS: BP 141/71; PULSE 85; RESP 16; TEMP 35.6; O2SAT 95
[2024-07-07 07:19] LABS: Absolute Lymphocyte Count 4.17 X10^3/uL (0.83-4.51); Absolute Neutrophil Count 4.3 X10^3/uL (2.0-7.7); Basophil# 0.03 X10^3/uL; Basophil% 0.3 % (0-1); Eosinophil# 0.16 X10^3/uL; Eosinophils% 1.7 % (0-5); Hematocrit 47.3 % (37-47); Hemoglobin 16.1 g/dL (12.0-15.0); Lymphocyte # 4.17 X10^3/ul (0.83-4.51); Lymphocyte % 43.3 % (19-41); Mean Corpuscular Hgb 28.4 pg (27.0-32.0); Mean Corpuscular Volume 83.4 fL (81-99); Mean Platelet Vol. 11.1 fl (6.2-12.0); Monocyte# 0.93 X10^3/uL; Monocyte% 9.6 % (0-10); NRBC Flagged by Analyzer 0 % (0-5); Neutrophil # 4.32 X10^3/uL (2.7-7.7); Neutrophil % 44.8 % (47-70); Platelet Count 289 K/mm3 (150-450); RBC Distribution Width SD 42.4 fl (35.1-43.9); Red Blood Count 5.67 M/mm3 (4.2-5.4); White Blood Count 9.6 K/mm3 (4.4-11.0)
[2024-07-07 07:33] LABS: International Normalized Ratio 1.1; Prothrombin Time (Protime)PT. 14.4 SECONDS (11.7-14.9)
[2024-07-07 07:51] LABS: ALB/GLOB Ratio 1.1 RATIO (0.9-2.4); AST(SGOT) 23 U/L (<=31); Alanine Aminotransfer ALT/SGPT 26 U/L (<=34); Albumin, Serum 3.8 g/dL (3.4-4.8); Alkaline Phosphatase 112 U/L (35-104); Anion Gap 13 (5-15); BUN 45 mg/dL (4-19); BUN/Creat Ratio 45.1 RATIO (10-20); Bilirubin, Direct 0.27 mg/dL (0.00-0.30); Calcium,Total 8.5 mg/dL (7.6-11.0); Carbon Dioxide 13.6 mmol/L (21.0-32.0); Chloride 106 mmol/L (98-108); EST Glomerular Filtration Rate 64 (>60); Estimated Creatinine Clearance 75.47 ml/min (50-250); Globulin 3.5 g/dL (2.2-4.2); Glucose 154 mg/dL (70-99); Magnesium 2.2 mg/dL (1.5-2.2); Phosphorus 3.4 mg/dL (2.7-4.5); Potassium 3.1 mmol/L (3.3-5.1); Protein, Total 7.3 g/dL (5.9-8.4); Sodium Level 132 mmol/L (133-145); Thyroid Stim Hormone (TSH) 0.617 uIU/mL (0.300-4.200); Total Bilirubin 0.69 mg/dL (0.00-1.30)
[2024-07-07 08:03] LABS: Bedside Glucose 176 mg/dL (74-106)
[2024-07-07 09:17] VITALS: BP 132/73; PULSE 93; RESP 16; TEMP 36.6; O2SAT 94
[2024-07-07] MEDS: Potassium Chloride Oral Tablet 20 MEQ 40 MEQ PO (09:23)
[2024-07-07] MEDS: Insulin Glargine-YFGN 100 UNIT/ML Pen 14 UNIT SC (09:24)
[2024-07-07] MEDS: DULoxetine Hcl 60 MG Capsule PO (09:24)
[2024-07-07] MEDS: Methimazole 5 MG Tablet 20 MG PO (09:24)
[2024-07-07] MEDS: Cyanocobalamin 500 MCG Tablet PO (09:25)
[2024-07-07] MEDS: Insulin Lispro 100 UNIT/ML INSULN.PEN SC ×2 (11:15→17:33)
[2024-07-07] MEDS: Cholecalciferol (VIT D3) 25 MCG TABLET (1,000 UNITS) PO (11:15)
[2024-07-07 11:30] LABS: Bedside Glucose 196 mg/dL (74-106)
--- NOTE | 2024-07-07 11:41 | CASEMGMT ---
Addendum entered by Neelima Jaquez 07/07/24 11:44: Correction: ST is not ordered. Original Note: RN CM into pt room, pt sitting up in bed in no distress. Pt states she is I at home. 6 cl=24. Pt denies any homegoing needs. ST to eval.
--- NOTE | 2024-07-07 14:11 | PN_ITS ---
Subjective Subjective Patient seen and examined. She was admitted with a complaint of diarrhea. Diarrhea has now resolved. She denies any abdominal pain, fever chills or any other symptoms. Review of systems otherwise negative. Objective Data Objective Data Vital Signs: Vital Signs Temp Pulse Resp BP Pulse Ox O2 Del Method 97.9 F 93 16 132/73 H 94 Room Air 07/07/24 09:17 07/07/24 09:17 07/07/24 09:17 07/07/24 09:17 07/07/24 09:17 07/07/24 09:17 Oxygen Delivery Method Room Air Weight: 242 lb 4.608 oz Body Mass Index (BMI) 37.9 Intake & Output: Intake and Output for Last 24 Hours 07/05/24 07/06/24 07/07/24 23:59 23:59 23:59 Intake Total 999 / 999 Balance 999 / 999 Lab / Micro Data 07/07/24 06:32 07/07/24 06:32 Labs: Laboratory Results - last 24 hr 07/06/24 20:05: WBC 11.2 H, RBC 6.29 H, Hgb 17.9 H, Hct 52.2 H, MCV 83.0, MCH 28.5, MCHC 34.3, RDW Std Deviation 42.5, RDW Coeff of Zachary 14.2, Plt Count 325, MPV 11.1, Immature Gran % (Auto) 0.400, Neut % (Auto) 56.3, Lymph % (Auto) 32.3, [place] % (Auto) 9.9, Eos % (Auto) 0.7, Baso % (Auto) 0.4, Absolute Neuts (auto) 6.3, Absolute Lymphs (auto) 3.61, Nucleated RBC % 0, Sodium 132 L, Potassium 3.4, Chloride 100, Carbon Dioxide 15.5 L, Anion Gap 17 H, BUN 62 H, Creatinine 1.52 H, Estim Creat Clear Calc 49.55 L, Est GFR (MDRD) Non-Af 39 L, B UN/Creatinine Ratio 40.9 H, Glucose 186 H, Calcium 9.3, Total Bilirubin 0.66, AST 29, ALT 34, Alkaline Phosphatase 133 H, Total Protein 8.8 H, Albumin 4.5, G lobulin 4.3 H, Albumin/Globulin Ratio 1.0, b-Hydroxybutyric mmol/L 0.3, Free T3 pg/dL 4.1 H 07/06/24 20:46: Urine Color Yellow, Urine Clarity Clear, Urine pH 5.0, Ur Specific [place] 1.025, Urine Protein 30 H, Urine Glucose (UA) Normal, Urine Ketones Negative, Urine Occult Blood 10 H, Urine Nitrite Negative, Urine Bilirubin 1 H, Urine Urobilinogen Normal, Ur Leukocyte Esterase Negative, Urine RBC 0 SEEN, Urine WBC 0-5 SEEN, Ur Squamous Epith Cells 0-5 SEEN, Urine Bacteria 1+, Hyaline Casts 5-10 SEEN, Fine Granular Casts 0-5 SEEN, Urine Mucus 0 SEEN 07/06/24 20:49: POC Glucose 189 H 07/06/24 22:08: POC Glucose 156 H 07/06/24 23:04: POC Glucose 134 H 07/07/24 00:26: POC Glucose 163 H 07/07/24 06:32: WBC 9.6, RBC 5.67 H, Hgb 16.1 H, Hct 47.3 H, MCV 83.4, MCH 28.4, MCHC 34.0, RDW Std Deviation 42.4, RDW Coeff of Zachary 14.0, Plt Count 289, MPV 11.1, Immature Gran % (Auto) 0.300, Neut % (Auto) 44.8 L, Lymph % (Auto) 43.3 H, [place] % (Auto) 9.6, Eos % (Auto) 1.7, Baso % (Auto) 0.3, Absolute Neuts (auto) 4.3, Absolute Lymphs (auto) 4.17, Nucleated RBC % 0, PT 14.4, INR 1.1, Sodium 132 L, Potassium 3.1 L, Chloride 106, Carbon Dioxide 13.6 L, Anion Gap 13, BUN 45 H, Creatinine 1.00, Estim Creat Clear Calc 75.47, Est GFR (MDRD) Non-Af 64, B UN/Creatinine Ratio 45.1 H, Glucose 154 H, Calcium 8.5, Phosphorus 3.4, Magnesium 2.2, Total Bilirubin 0.69, Direct Bilirubin 0.27, AST 23, ALT 26, A lkaline Phosphatase 112 H, Total Protein 7.3, Albumin 3.8, Globulin 3.5, Albumin/Globulin Ratio 1.1, TSH 0.617 07/07/24 07:42: POC Glucose 176 H 07/07/24 11:11: POC Glucose 196 H ABG Data ABG results: ABG 07/06/24 20:38 Specimen Type [place] Sample Site Not entered O2 % 21.0 VBG pH 7.28 L VBG pO2 34 VBG HCO3 16 L VBG Total CO2 17 L VBG O2 Sat (Calc) 58 VBG Base Excess -10 L POC Mix VBG pCO2 Pt Tmp 35.0 L O2 Delivery Device Not entered Radiography Diagnostic Testing: Radiology Impression Abdomen/Pelvis CT 07/06/24 20:28 IMPRESSION: 1. Fluid contents throughout the colon, in keeping with the reported history of diarrheal illness. No significant inflammatory changes of the bowel, nor evidence of obstruction. 2. Colonic diverticulosis. 3. Multivessel coronary calcifications. Reading Location: [facility] Physical Exam Const alert, oriented x3 and no apparent distress Constitutional Narrative: class II obesity General Appearance: cooperative and well developed HEENT normocephalic, head/scalp atraumatic, moist oral mucous membranes, oropharynx normal and gingiva normal Eyes PERRL and EOMs intact bilaterally Neck no lymphadenopathy and supple Lymph Lymphatic: no lymphadenopathy noted and no lymphedema noted Resp normal respiratory effort, normal air movement and clear to auscultation bilaterally Cardio regular rate, regular rhythm, S1 normal heart sound, S2 normal heart sound and no murmurs GI normal to inspection, nondistended, normoactive bowel sounds, soft to palpation, non-tender and non-distended Extremity normal capillary refill, no clubbing, cyanosis or edema and no calf tenderness General Extremity: no tenderness to palpation of joints or extremities Skin General Skin Exam: no breakdown Neuro CN's II-XII intact bilaterally, no focal motor deficits and no sensory deficits noted Motor Exam: strength 5/5 throughout and general weakness Psych thought process normal, cooperative and affect normal Appearance: appropriate Assessment & Plan Assessment/Plan (1) Hyponatremia: (2) Diarrhea: (3) Acute kidney injury: PLAN: Plan # ERNIE: Resolved. Patient hydrated with IV fluids. Will monitor. #Acute anion gap metabolic acidosis * jardiance on hold. Will likely dc at time of discharge. * Bicarb today is 13.6. Was 15.5 yesterday. Anion gap was 17 and is down to 13 today. * Continue hydration with fluid. Will switch to Ringer's lactate and trend. * #Hypokalemia: Potassium is 3.1. Replace and monitor. #Hyperthyroidism: on methimazole #Type 2 diabetes mellitus: on jardiance. ISS. Accuchecks ACHS. Also on Lantus 14 units daily. #Hypertension: on lisinopril held due to ERNIE #Class II obesity: BMi is 37.9. Complicates acute care, expected recovery and prognosis DVT prophylaxis: SCDs Charges/Coding Visit Charges Inpatient E&M: 24437 Subs Hosp L2
--- NOTE | 2024-07-07 15:15 | CASEMGMT ---
MORAIMA BAER Assessment: Face to Face with pt for initial transition planning/care coordination assessment. RN BUFFY introduced self and role at [facility], pt voices understanding and consents to assessment. Pt is A&O x4 and answers all questions appropriately at this time. Care providers, pharmacy, and demographics verified/updated. Admitting Dx: metabolic acidosis Strata Score: 2 PCP:Chelsea Specialists:hudson Acosta Preferred Pharmacy: [facility] Insurance: [employer] Prescription Benefit: yes LNOK: Moises Marquez, ; Melanie Parker dtr Living Arrangements: Pt lives with , 3 grandchildren and son in a two story home with 4 steps to enter. Pt reports she is I in ADL/IADLs and works. Pt denies concerns at home. Transportation: Pt drives self and denies concerns with transportation. DME:CPAP HHC/SNF: Denies hx of Pt states no concerns with going home at time of dc. Pt states no further concerns/needs. CM to follow. Advised pt to ask CM if any further questions/concerns/needs arise, voices understanding. Pt Goal: Home Plan: Home Sangeeta VALERA CM
[2024-07-07 17:55] LABS: Bedside Glucose 172 mg/dL (74-106)
[2024-07-07 23:18] VITALS: BP 157/97; PULSE 81; RESP 17; TEMP 36.8; O2SAT 97
[2024-07-07] MEDS: traZODone 50 MG Tablet 75 MG PO (23:22)
[2024-07-07] MEDS: Pramipexole Di-HCl 0.5 MG Tablet PO (23:23)
[2024-07-07 23:49] LABS: Bedside Glucose 174 mg/dL (74-106)
[2024-07-08 05:24] VITALS: BP 132/81; PULSE 95; RESP 17; TEMP 36.5; O2SAT 97
[2024-07-08] MEDS: Lactated Ringers 1,000 ML 100 ML IV (05:29)
[2024-07-08 06:34] LABS: Absolute Lymphocyte Count 3.57 X10^3/uL (0.83-4.51); Absolute Neutrophil Count 4.5 X10^3/uL (2.0-7.7); Basophil# 0.05 X10^3/uL; Basophil% 0.6 % (0-1); Eosinophil# 0.17 X10^3/uL; Eosinophils% 1.9 % (0-5); Hematocrit 39.8 % (37-47); Hemoglobin 13.7 g/dL (12.0-15.0); Lymphocyte # 3.57 X10^3/ul (0.83-4.51); Lymphocyte % 39.4 % (19-41); Mean Corp Hgb Conc 34.4 g/dL (32-36); Mean Corpuscular Hgb 28.6 pg (27.0-32.0); Mean Corpuscular Volume 83.1 fL (81-99); Mean Platelet Vol. 10.8 fl (6.2-12.0); Monocyte# 0.73 X10^3/uL; NRBC Flagged by Analyzer 0 % (0-5); Neutrophil # 4.52 X10^3/uL (2.7-7.7); Neutrophil % 49.8 % (47-70); POSITIVE MORPHOLOGY YES; Platelet Count 222 K/mm3 (150-450); RBC Distribution Width CV 14.1 % (11.6-14.6); RBC Distribution Width SD 42.8 fl (35.1-43.9); Red Blood Count 4.79 M/mm3 (4.2-5.4); White Blood Count 9.1 K/mm3 (4.4-11.0)
[2024-07-08 06:36] LABS: Differential Indicated SCAN CRITERIA MET
[2024-07-08 06:58] LABS: Anion Gap 9 (5-15); BUN 20 mg/dL (4-19); Calcium,Total 8.4 mg/dL (7.6-11.0); Carbon Dioxide 17.6 mmol/L (21.0-32.0); Chloride 112 mmol/L (98-108); Creatinine, Serum 0.66 mg/dL (0.70-1.20); EST Glomerular Filtration Rate 100 (>60); Estimated Creatinine Clearance 114.35 ml/min (50-250); Glucose 149 mg/dL (70-99); Potassium 3.3 mmol/L (3.3-5.1); Sodium Level 138 mmol/L (133-145)
[2024-07-08 08:19] LABS: Reactive Lymphocyte 2+
[2024-07-08 08:21] LABS: Platelet Morphology GIANT
[2024-07-08] MEDS: Methimazole 5 MG Tablet 20 MG PO (08:59)
[2024-07-08] MEDS: Cholecalciferol (VIT D3) 25 MCG TABLET (1,000 UNITS) PO (09:00)
[2024-07-08] MEDS: DULoxetine Hcl 60 MG Capsule PO (09:00)
[2024-07-08] MEDS: Cyanocobalamin 500 MCG Tablet PO (09:00)
[2024-07-08] MEDS: Insulin Lispro 100 UNIT/ML INSULN.PEN SC (09:00)
[2024-07-08] MEDS: Insulin Glargine-YFGN 100 UNIT/ML Pen 14 UNIT SC (09:01)
[2024-07-08 09:06] VITALS: BP 125/83; PULSE 82; RESP 18; TEMP 36.7; O2SAT 97
--- NOTE | 2024-07-08 10:10 | DCINST_ITS ---
Discharge Instructions Diet Discharge Diet: Low fat / Low cholesterol and 1800 Calorie Control Diet DC O2, CPAP, BIPAP needs Home O2 Discharge instructions: No Dressing / Incision Discharge Activity: Return to Normal Activity Weight Bearing Status: Weight bearing as tolerated Dressing / Incision Call your doctor if you observe: Fever of 101 or Higher, Shortness of breath, Dizziness, Swelling in the ankles, Chest pain, Increased palpitations (irregular heartbeat) and Calf discomfort Follow Up Care Test Results: Test results from this visit will be discussed in further detail at your follow- up appointment, if applicable. Discharge Plan Admission Admit Date/Time: 07/07/24 15:08 Primary Reason for Your Visit: chino KLEIN Attending Provider: Cate Sargent Primary Care Provider: Pancho Tran Consulting Providers: Alejandra Weiner Instructions Patient Instructions: ED Diarrhea, Unknown Cause, ED Renal Insufficiency Discharge Orders/Prescriptions Prescriptions: Continued albuterol sulfate [Ventolin HFA] 90 mcg/actuation HFA aerosol inhaler 2 puff inhalation Q6H PRN (Reason: shortness of breath or wheezing) trazodone 150 mg tablet 75 mg PO QHS (DME) Dexcom G6 Transmitter Device See Rx Instructions .ROUTE .MEDSUPPLY Qty: 1 Patient Comments: USE TRANSMITTER NEEDED Rx Instructions: As directed glipizide 10 mg tablet extended release 24hr 10 mg PO BID ropinirole 1 mg tablet 1 mg PO QHS losartan-hydrochlorothiazide 100-12.5 mg tablet 1 tab PO DAILY cholecalciferol (vitamin D3) 25 mcg (1,000 unit) capsule 25 mcg PO QDAY (DME) OneTouch Ultra Test Strip See Rx Instructions .Route Qty: 100 5RF Rx Instructions: BID duloxetine 60 mg capsule,delayed release(DR/EC) 60 mg PO DAILY Qty: 90 0RF potassium chloride 20 mEq tablet,ER particles/crystals 20 meq PO QDAY Qty: 90 0RF insulin glargine [Lantus Solostar U-100 Insulin] 100 unit/mL (3 mL) insulin pen 14 unit subcut DAILY mecobalamin (vitamin B12) 500 mcg tablet,chewable 500 mcg PO DAILY calcium carbonate [Antacid (calcium carbonate)] PO insulin lispro [Humalog KwikPen Insulin] 100 unit/mL insulin pen 5 unit subcut TID Qty: 15 0RF Ozempic 2 mg/dose (8 mg/3 mL) pen injector 2 mg subcut MILLS Qty: 9 1RF methimazole 10 mg tablet 20 mg PO DAILY Qty: 60 3RF Discontinued Jardiance 25 mg tablet 25 mg PO QDAY Qty: 30 5RF Referrals / Follow Up: Pancho Tran MD [Primary Care Provider] - Within 1 Week Disposition Disposition (needs filled in before D/C Order can be placed): Home, Self Care
--- NOTE | 2024-07-08 10:14 | PCM.DC.SUM ---
Providers Date of Admission: 07/07/24 Date of Discharge: 07/08/24 Primary Care Physician: Dr. Pancho Tran MD Reason For Visit: METABOLIC ACIDOSIS Diagnosis Discharge Diagnosis (1) Hyponatremia: Status: Acute Code(s): E87.1 - Hypo-osmolality and hyponatremia (2) Diarrhea: Status: Acute Code(s): R19.7 - Diarrhea, unspecified (3) Acute kidney injury: Status: Acute Code(s): N17.9 - Acute kidney failure, unspecified Plan # ERNIE: Resolved. Patient hydrated with IV fluids. Will monitor. #Acute anion gap metabolic acidosis jardiance on hold. Will likely dc at time of discharge. Bicarb today is 13.6. Was 15.5 yesterday. Anion gap was 17 and is down to 13 today. Continue hydration with fluid. Will switch to Ringer's lactate and trend. #Hypokalemia: Potassium is 3.1. Replace and monitor. #Hyperthyroidism: on methimazole #Type 2 diabetes mellitus: on jardiance. ISS. Accuchecks ACHS. Also on Lantus 14 units daily. #Hypertension: on lisinopril held due to ERNIE #Class II obesity: BMi is 37.9. Complicates acute care, expected recovery and prognosis DVT prophylaxis: SCDs Medications at Discharge Home Medications albuterol sulfate 90 mcg/actuation aerosol inhaler (Ventolin HFA) 2 puff inhalation Q6H PRN shortness of breath or wheezing 05/20/21 blood-glucose transmitter (Dexcom G6 Transmitter device) #1 ea 01/04/23 trazodone 150 mg tablet 75 mg PO QHS 01/04/23 glipizide 10 mg tablet, extended release 24 hr 10 mg PO BID 08/05/23 ropinirole 1 mg tablet 1 mg PO QHS 08/05/23 losartan 100 mg-hydrochlorothiazide 12.5 mg tablet 1 tab PO DAILY 10/07/23 insulin lispro 100 unit/mL subcutaneous pen (Humalog KwikPen (U-100) Insulin) 5 unit (0.05 mL) subcut TID #15 mL 12/24/23 semaglutide 2 mg/dose (8 mg/3 mL) subcutaneous pen injector (Ozempic) 2 mg (0.75 mL) subcut MILLS #9 mL 12/24/23 methimazole 10 mg tablet 20 mg (2 x 10 mg) PO DAILY #60 tabs 03/14/24 blood sugar diagnostic (OneTouch Ultra Test strips) #100 ea 04/13/24 cholecalciferol (vitamin D3) 25 mcg (1,000 unit) capsule 25 mcg PO QDAY 04/13/24 duloxetine 60 mg capsule,delayed release 60 mg PO DAILY #90 caps 04/13/24 potassium chloride 20 mEq tablet,extended release(part/cryst) 20 meq PO QDAY #90 tabs 04/13/24 insulin glargine 100 unit/mL (3 mL) subcutaneous pen (Lantus Solostar U-100 Insulin) 14 unit subcut DAILY 04/20/24 calcium carbonate PO 07/06/24 mecobalamin (vitamin B12) 500 mcg chewable tablet 500 mcg PO DAILY 07/06/24 Hospital Course Operations None Procedures None Summary of Care Provided Minutes Spent on Discharge: 45 Hospital Course: Patient is a 63-year-old female with a past medical history as outlined was admitted to the ED on 07/07/2024 with a complaint of diarrhea for about a week prior to admission. She has stopped taking most of her meds prior to admission due to the diarrhea. However her diarrhea worsened. She said her grandchildren which she took care of her also been sick with diarrhea. She therefore came into the ED due to the persistent diarrhea. On admission ABG showed pH of 7.2 with bicarb of 35 and creatinine of 1.5. WBC was 11.2 potassium was 3.4. A1c was 7.1. She was admitted and managed for ERNIE likely prerenal in the setting of diarrhea as well as acute metabolic acidosis likely due to the ERNIE and also likely due to Ozempic which was taken for diabetes. She was hydrated with IV fluids. Her diarrhea stopped. C. difficile and enteric pathogens were negative. She felt much better and was discharged home on 07/08/2024. Her Ozempic was discontinued. She is to follow-up with her primary care doctor within 1 to 2 weeks. Patient seen and examined prior to discharge. She had no active complaints and felt well. She had an uneventful night. Review of systems otherwise negative. Labs and vitals reviewed. Home medication reviewed and reconciled. Physical Exam Const alert, oriented x3 and no apparent distress Constitutional Narrative: class II obesity General Appearance: cooperative, comfortable, well kempt and well developed Orientation / Consciousness: awake Exam Limitations: no limitations HEENT normocephalic, head/scalp atraumatic, hearing grossly normal bilaterally, moist oral mucous membranes, oropharynx normal and gingiva normal Mouth: oral and palatal mucosa normal Eyes PERRL, EOMs intact bilaterally and conjunctivae normal Neck no lymphadenopathy and supple Lymph Lymphatic: no lymphadenopathy noted and no lymphedema noted Resp normal respiratory effort, normal air movement, no retractions and clear to auscultation bilaterally Cardio regular rate, regular rhythm, S1 normal heart sound, S2 normal heart sound and no murmurs GI normal to inspection, nondistended, normoactive bowel sounds, soft to palpation, non-tender and non-distended Extremity normal to inspection, full ROM, normal capillary refill, no clubbing, cyanosis or edema and no calf tenderness General Extremity: no tenderness to palpation of joints or extremities Skin no rashes or lesions noted General Skin Exam: no breakdown Neuro oriented x3, CN's II-XII intact bilaterally, moves all extremities, no focal motor deficits and no sensory deficits noted Sensorium / Orientation: awake and alert Motor Exam: strength 5/5 throughout and general weakness Psych thought process normal, cooperative and affect normal Appearance: appropriate Medical Records Data Medical Nutrition Assessment Dietitian: Malnutrition Criteria Met Start: 07/07/24 14:33 Freq: Status: Active Protocol: Document 07/07/24 14:33 [facility] (Rec: 07/07/24 14:33 [facility] [email or web address]) Nutrition Malnutrition Evidence of Yes Malnutrition Exists Malnutrition (severe Acute Illness/Injury ): Evidenced By Suboptimal Energy Intake (Severe),Weight Loss (Severe) Clinical Problem Altered Nutrient-Related Laboratory Values Etiology related to diabetes Signs/Symptoms as evidenced by gluc 154 Status Active Problem Acute Disease or Injury Related Malnutrition 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/Symptoms as evidenced by po intake meeting <75% of est nutritional needs and ~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 Status Active Problem Recommendation Dietitian Change diet to 1800 chris Consistent CHO Recommendations/ Continue to follow and monitor for changes in pt Changes nutritional status and make additional rec/ provide additional diet education prn Weight / BMI Weight Weight: 242 lb 4.608 oz Body Mass Index (BMI) 37.9 ABG / Lab / Microbiology Data 07/08/24 06:05 07/08/24 06:05 Laboratory: Laboratory Results - last 24 hr 07/07/24 17:32: POC Glucose 172 H 07/07/24 23:22: POC Glucose 174 H 07/08/24 06:05: WBC 9.1, RBC 4.79, Hgb 13.7, Hct 39.8, MCV 83.1, MCH 28.6, MCHC 34.4, RDW Std Deviation 42.8, RDW Coeff of Zachary 14.1, Plt Count 222, MPV 10.8, Immature Gran % (Auto) 0.300, Neut % (Auto) 49.8, Lymph % (Auto) 39.4, [place] % (Auto) 8.0, Eos % (Auto) 1.9, Baso % (Auto) 0.6, Absolute Neuts (auto) 4.5, Absolute Lymphs (auto) 3.57, Nucleated RBC % 0, Reactive Lymphocytes 2+, Plt Morphology Comment GIANT, Sodium 138, Potassium 3.3, Chloride 112 H, Carbon Dioxide 17.6 L, Anion Gap 9, BUN 20 H, Creatinine 0.66 L, Estim Creat Clear Calc 114.35, Est GFR (MDRD) Non-Af 100, BUN/Creatinine Ratio 30.0 H, Glucose 149 H, Calcium 8.4 Microbiology: Microbiology 07/07/24 Unknown Stool Enteric Bacteriology - Final Rotavirus D/C Instructions Discharge Diet: Low fat / Low cholesterol and 1800 Calorie Control Diet Discharge Activity: Return to Normal Activity Weight Bearing Status: Weight bearing as tolerated Call your doctor if you observe: Fever of 101 or Higher, Shortness of breath, Dizziness, Swelling in the ankles, Chest pain, Increased palpitations (irregular heartbeat) and Calf discomfort DC O2, CPAP, BIPAP Needs Home O2 Discharge instructions: No DC home with Oxygen: No Meaningful Use Info Meaningful Use Meaningful Use Diagnoses (Choose all that apply): None applicable Ischemic Stroke Statin Dosing Therapy Reference: STATIN DOSE THERAPY REFERENCE: * Patients > 75 years receive moderate or high dose statin therapy. * Patients 75 years or YOUNGER should receive HIGH intensity statin dose unless contraindicated. You will be required to document reason for non-treatment if statin daily dose does not meet guidelines. HIGH DOSE STATIN THERAPY DAILY Atorvastatin > than or = to 40 mg Rosuvastatin > than or = to 20 mg Amlodipine + Atorvastatin > than or = to 2.5/40 mg Ezetimibe + Simvastatin 10/80 mg Simvastatin 80mg Discharge Plan Admission Admit Date/Time: 07/07/24 15:08 Primary Reason for Your Visit: [place] KLEIN Attending Provider: Cate Sargent Primary Care Provider: Pancho Tran Consulting Providers: Alejandra Weiner Instructions Patient Instructions: ED Diarrhea, Unknown Cause, ED Renal Insufficiency Discharge Orders/Prescriptions Prescriptions: Continued albuterol sulfate [Ventolin HFA] 90 mcg/actuation HFA aerosol inhaler 2 puff inhalation Q6H PRN (Reason: shortness of breath or wheezing) trazodone 150 mg tablet 75 mg PO QHS (DME) Dexcom G6 Transmitter Device See Rx Instructions .ROUTE .MEDSUPPLY Qty: 1 Patient Comments: USE TRANSMITTER NEEDED Rx Instructions: As directed glipizide 10 mg tablet extended release 24hr 10 mg PO BID ropinirole 1 mg tablet 1 mg PO QHS losartan-hydrochlorothiazide 100-12.5 mg tablet 1 tab PO DAILY cholecalciferol (vitamin D3) 25 mcg (1,000 unit) capsule 25 mcg PO QDAY (DME) OneTouch Ultra Test Strip See Rx Instructions .Route Qty: 100 5RF Rx Instructions: BID duloxetine 60 mg capsule,delayed release(DR/EC) 60 mg PO DAILY Qty: 90 0RF potassium chloride 20 mEq tablet,ER particles/crystals 20 meq PO QDAY Qty: 90 0RF insulin glargine [Lantus Solostar U-100 Insulin] 100 unit/mL (3 mL) insulin pen 14 unit subcut DAILY mecobalamin (vitamin B12) 500 mcg tablet,chewable 500 mcg PO DAILY calcium carbonate [Antacid (calcium carbonate)] PO insulin lispro [Humalog KwikPen Insulin] 100 unit/mL insulin pen 5 unit subcut TID Qty: 15 0RF Ozempic 2 mg/dose (8 mg/3 mL) pen injector 2 mg subcut MILLS Qty: 9 1RF methimazole 10 mg tablet 20 mg PO DAILY Qty: 60 3RF Discontinued Jardiance 25 mg tablet 25 mg PO QDAY Qty: 30 5RF Referrals / Follow Up: Pancho Tran MD [Primary Care Provider] - Within 1 Week Disposition Disposition (needs filled in before D/C Order can be placed): Home, Self Care Charges/Coding Visit Charges Inpatient E&M: 22056 Disch Hosp >30min
[2024-07-08 10:35] VITALS: BP 125/83; PULSE 82; RESP 18; TEMP 36.7; O2SAT 97
== END 2024-07-08 11:10 | disposition home or self-care (01) | DRG 683 ==
LOC: ED 22:39 → PCU 07-07 00:12
PROVIDERS: Admitting Provider Internal Medicine; Emergency Provider Emergency Medicine; PCP Internal Medicine; Visit Provider Student in an Organized Health Care Education/Training Program
DX: N17.9 Acute kidney failure, unspecified (principal); E11.40 Type 2 diabetes mellitus with diabetic neuropathy, unspecified; Z79.4 Long term (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; E11.65 Type 2 diabetes mellitus with hyperglycemia; E87.21 Acute metabolic acidosis; E87.1 Hypo-osmolality and hyponatremia; J45.909 Unspecified asthma, uncomplicated; I10 Essential (primary) hypertension; E05.90 Thyrotoxicosis, unspecified without thyrotoxic crisis or storm; Z68.37 Body mass index [BMI] 37.0-37.9, adult; E78.00 Pure hypercholesterolemia, unspecified; R19.7 Diarrhea, unspecified; G47.33 Obstructive sleep apnea (adult) (pediatric); E87.6 Hypokalemia; Z79.84 Long term (current) use of oral hypoglycemic drugs; Z79.85 Long-term (current) use of injectable non-insulin antidiabetic drugs; E66.812 Obesity, class 2; R00.0 Tachycardia, unspecified
CPT/HCPCS: 36415; 74177; 80048; 80053; 80076; 81001; 82010; 82803; 82962; 83735; 84100; 84443; 84481; 85025; 85610; 87506; 93005; 96361; 96374; 97802; 99221; 99285; Q9967; A4216; G0378; J2405

== ENCOUNTER → 2024-07-06 | Outpatient (CLI) | payer MEDICAID, SELFPAY ==
[2024-07-06 12:35] LABS: Absolute Lymphocyte Count 2.88 X10^3/uL (0.83-4.51); Absolute Neutrophil Count 6.1 X10^3/uL (2.0-7.7); Basophil# 0.05 X10^3/uL; Basophil% 0.5 % (0-1); Eosinophil# 0.04 X10^3/uL; Eosinophils% 0.4 % (0-5); Hematocrit 52.4 % (37-47); Hemoglobin 17.9 g/dL (12.0-15.0); Lymphocyte # 2.88 X10^3/ul (0.83-4.51); Lymphocyte % 28.7 % (19-41); Mean Corp Hgb Conc 34.2 g/dL (32-36); Mean Corpuscular Hgb 28.6 pg (27.0-32.0); Mean Corpuscular Volume 83.7 fL (81-99); Mean Platelet Vol. 11.2 fl (6.2-12.0); Monocyte# 0.95 X10^3/uL; Monocyte% 9.5 % (0-10); NRBC Flagged by Analyzer 0 % (0-5); Neutrophil # 6.09 X10^3/uL (2.7-7.7); Neutrophil % 60.5 % (47-70); Platelet Count 335 K/mm3 (150-450); RBC Distribution Width CV 13.8 % (11.6-14.6); RBC Distribution Width SD 42.2 fl (35.1-43.9); Red Blood Count 6.26 M/mm3 (4.2-5.4); White Blood Count 10.1 K/mm3 (4.4-11.0)
[2024-07-06 13:59] LABS: AST(SGOT) 28 U/L (<=31); Alanine Aminotransfer ALT/SGPT 35 U/L (<=34); Albumin, Serum 4.5 g/dL (3.4-4.8); Alkaline Phosphatase 133 U/L (35-104); Anion Gap 19 (5-15); BUN 56 mg/dL (4-19); Calcium,Total 9.2 mg/dL (7.6-11.0); Chloride 102 mmol/L (98-108); Cholesterol 100 mg/dL (<=200); Creatinine, Serum 1.41 mg/dL (0.70-1.20); EST Glomerular Filtration Rate 42 (>60); Free T3 3.8 pg/mL (2.18-3.98); Globulin 4.3 g/dL (2.2-4.2); Glucose 185 mg/dL (70-99); High Density Lipoprotein 22 mg/dL; Low Density Lipoprotein Calc. 51 mg/dL; Potassium 3.3 mmol/L (3.3-5.1); Protein, Total 8.8 g/dL (5.9-8.4); Sodium Level 132 mmol/L (133-145); Total Bilirubin 0.56 mg/dL (0.00-1.30); Triglycerides 133 mg/dL; Very Low Density Lipoprotein 27 mg/dL (5-40); Vitamin D,25 Hydroxy 31.3 ng/mL (30-100); cholesterol:hdl ratio screen 4.46
== END | disposition home or self-care (01) ==
LOC: BIMLAB 11:41
PROVIDERS: Nurse Practitioner Family; PCP Internal Medicine; Referring Provider Physician Assistant; Visit Provider Physician Assistant
DX: E11.65 Type 2 diabetes mellitus with hyperglycemia (principal); Z79.4 Long term (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; R19.7 Diarrhea, unspecified
CPT/HCPCS: 36415; 80053; 80061; 82306; 84439; 84443; 84481; 85025

== ENCOUNTER → 2024-12-13 | Outpatient (CLI) | payer MEDICAID, SELFPAY ==
--- OUTSIDE RECORDS SUMMARY | 2024-12-14 17:51 | XMS RPT_ITS | CCD ---
Author Organization [facility] Care Team Providers Care Wrapper Layer And Examiner Soft Work Name Role Phone MANE SMITH Attending Unavailable Dr. Ivone Hrutado Primary Care Provider Dr. Ivone Hurtado Referring Provider [phone] Cleopatra VEHICLE OPERATOR TECHNICIAN, VEHICLE OPERATOR TECHNICIAN-C Lisbeth Attending Provider [phone] Dr. Augusta Sandhu Attending Provider Dr. Ivone Hurtado Primary Care Provider [phone] Dr. Ivone Hurtado Referring Provider [phone] MD Olaf Rene Attending Provider Dr. Tim Carballo Attending Provider Dr. Gavin Bhakta Attending Provider Dr. Freddie Dawson Attending Provider Unavailable Primary Care Provider UnavailSANDRA Easton Referring Unavailable TIFFANY BEAVER Attending Unavailable TIFFANY BEAVER Referring Unavailable TIFFANY BEAVER Attending Unavailable DANNY NEVAREZ Primary Care Unavailable ALLEN CARRENO Attending Unavailable Patriciar VEHICLE OPERATOR TECHNICIAN-C, VEHICLE OPERATOR TECHNICIANEssence Flores Primary Care Provider Eliu VEHICLE OPERATOR TECHNICIAN-C, VEHICLE OPERATOR TECHNICIANEssence Flores Referring Provider [phone] Caitlin Wong Attending Provider Caitlin Wong Referring Provider Chelsea KESSLER, Dr. Deleon Attending Provider [phone] Dr. Pancho Tran MD Primary Care Provider Oleghe MD, Dr. Efewongbe Referring Provider Ungerer VEHICLE OPERATOR TECHNICIAN-C, VEHICLE OPERATOR TECHNICIAN. Sandra Primary Care Provider Ungerer VEHICLE OPERATOR TECHNICIAN-C, VEHICLE OPERATOR TECHNICIAN. Sandra Referring Provider Jarek VEHICLE OPERATOR TECHNICIAN-C, Caitlin Attending Provider Geovanny BEYER, Pam Attending Provider Geovanny BEYER, Pam Referring Provider ROQUE KESSLER, DANNY Church Primary Care Provider ALLEN CARRENO MD Emergency Provider Ungerer VEHICLE OPERATOR TECHNICIAN-C, Sandra Primary Care Provider [phone] Ungerer VEHICLE OPERATOR TECHNICIAN-C, Sandra Referring Provider Manan Hull Attending Provider Manan Hull Referring Provider Sybil KESSLER, Mahendra Emergency Provider Husam KESSLER, Dr. Roberts Admit Provider Unavailab heri Weiner MD, Dr. Roberts Attending Provider Joan Devine MD, Mahendra Emergency Provider Husam KESSLER, Dr. Roberts Admit Provider Unavailab heri Weiner MD, Dr. Roberts Attending Provider Joan Weiner MD, Dr. Roberts Other Provider Unavailab heri Sargent MD, Dr. Cate Dsouza Attending Provider Rosetta KESSLER, Dr. Cate Dsouza Other Provider UNGERER, SANDRA VEHICLE OPERATOR TECHNICIAN Consulting Unavailable BORRUSO, GAVIN JR Admitting Unavailable BORRUSO, GAVIN JR Primary Care Unavailable BORRUSO, GAVIN JR Attending Unavailable PROVIDER, UNKNOWN Consulting Unavailable UNGERER, SANDRA VEHICLE OPERATOR TECHNICIAN Consulting Unavailable UNGERER, SANDRA VEHICLE OPERATOR TECHNICIAN Attending Unavailable UNGERER, SANDRA VEHICLE OPERATOR TECHNICIAN Admitting Unavailable UNGERER, SANDRA VEHICLE OPERATOR TECHNICIAN Primary Care Unavailable PROVIDER, UNKNOWN Consulting Unavailable Oleghe, Efewongbe Primary Care Unavailable Oleghe, Efewongbe Referring Unavailable Pam Small Attending Unavailable Oleghe, Efewongbe Attending Unavailable Ungerer, Sandra Primary Care Unavailable Ungerer, Sandra Referring Unavailable Caitlin Tilley Attending Unavailable Ungerer, Sandra Primary Care Unavailable Ungerer, Sandra Referring Unavailable Oleghe, Efewongbe Primary Care Unavailable Oleghe, Efewongbe Referring Unavailable Manan Hull Attending Unavailable Oleghe, Efewongbe Primary Care Unavailable Oleghe, Efewongbe Referring Unavailable Ungerer, Sandra Attending Unavailable Tim Carballo Attending Unavailable Ungerer, Sandra Primary Care Unavailable Weiner, Achintya Admitting Unavailable Koram, Cate Lianna Attending Unavailable Oleghe, Efewongbe Primary Care Unavailable Weiner, Achintya Consulting Unavailable Koram, Cate Lianna Consulting Unavailable Caitlin Tilley Referring Unavailable Caitlin Tilley Attending Unavailable Ungerer, Sandra Primary Care Unavailable Koram, Cate Lianna Attending Unavailable Oleghe, Efewongbe Primary Care Unavailable Weiner, Achintya Consulting Unavailable Weiner, Achintya Admitting Unavailable Oleghe, Efewongbe Attending Unavailable Oleghe, Efewongbe Primary Care Unavailable Oleghe, Efewongbe Referring Unavailable Oleghe, Efewongbe Attending Unavailable Oleghe, Efewongbe Primary Care Unavailable Oleghe, Efewongbe Referring Unavailable Oleghe, Efewongbe Primary Care Unavailable Pam Small Referring Unavailable Pam Small Attending Unavailable Oleghe, Efewongbe Primary Care Unavailable Manan Hull Referring Unavailable Manan Hull Attending Unavailable Oleghe, Efewongbe Primary Care Unavailable Weiner, Achintya Attending Unavailable Weiner, Achintya Consulting Unavailable Weiner, Achintya Admitting Unavailable Ungerer, Sandra Primary Care Unavailable Ivone Hurtado Referring Unavailable Gavin Bhakta Attending Unavailable Ungerer, Sandra Primary Care Unavailable Caitlin Tilley Attending Unavailable Ungerer, Sandra Referring Unavailable Oleghe, Efewongbe Primary Care Unavailable Oleghe, Efewongbe Referring Unavailable Caitlin Tilley Attending Unavailable Chelsea KESSLER, Dr. Deleon Primary Care Physician Dr. Pancho Tran MD Referring Provider Eliu VEHICLE OPERATOR TECHNICIAN-CSandra Attending Physician Allergies Allergy Classification Reported Allergen(s) Allergy Type Date of Onset Reaction(s) Facility (1 source) Acetaminophen Drug Allergy 01-07-[address] [facility] (1 source) oxyCODONE Drug Allergy 01-07-[address] [facility] Medications Current Medications Medication Drug Class(es) Dates Sig (Normalized) Sig (Original) acetaminophen 325 mg / HYDROcodone bitartrate 5 mg oral tablet (20 sources) Opioid Agonist Start: 05-24-2023 take 1 tablet by mouth every six hours as needed hydroCODone-aceta minophen 5-325 MG tablet Take 1 tablet by mouth every 6 hours as needed. 05/24/2023 Active Start: 01-04-2023 End: 03-29-2023 Hydrocodone-Acetaminophen 5- 325 mg tablet Discontinued {tbl} PO 0 January 04, 2023 1:00am March 29, 2023 4:02pm Start: 01-04-2023 Hydrocodone-Ac etaminophen Active TABLET PO January 04, 2023 12:00am Start: 02-08-2018 End: 01-27-2019 Hydrocodone-Acetaminophen (N orco) 5-325 mg tablet Discontinued 1 {tbl} PO Q4H as needed 0 February 08, 2018 1:00am January 27, 2019 2:10pm Albuterol Sulfate (12 sources) beta2-Adrenergic Agonist Start: 05-20-2021 take 1 puff(s) by inhalation every six hours Albuterol Sulfate (Ventolin Hfa) 90 mcg/actuation HFA aerosol inhaler Active 2 PUFF INHALATION EVERY 6 HOURS May 20, 2021 8:12am Start: 05-20-2021 Albuterol Sulf ate (Ventolin Hfa) 90 mcg/actuation HFA aerosol inhaler Active 2 NMA INHALATION EVERY 6 HOURS as needed for shortness of breath or wheezing May 20, 2021 12:00am Complies with drug therapy Start: 05-20-2021 take 1 puff(s) by in halation every six hours Albuterol Sulfate (Ventolin Hfa) 90 mcg/actuation HFA aerosol inhaler Active 2 PUFF INHALATION EVERY 6 HOURS May 19, 2021 11:00pm Blood-Glucose Sensor (Freest yle Caroline 3 Plus Sensor) device (1 source) Start: 08-29-2024 Blood-Glucose Sensor (Freestyle Caroline 3 Plus Sensor) device Active 0 .Route 6 3 August 29, 2024 12:00am As directed Blood-Glucose Transmitter (Dexcom G6 Transmitter) device (10 sources) Start: 01-04-2023 Blood-Glucose Transmitter (Dexcom G6 Transmitter) device Active NMA .ROUTE .MEDSUPPLY January 04, 2023 1:00am As directed Start: 01-04-2023 Blood-Glucose Transmitter (Dexcom G6 Transmitter) device Active EACH .ROUTE .MEDSUPPLY January 04, 2023 12:00am As directed Calcium Carbonate (4 sources) Start: 07-06-2024 calcium carbon ate Active PO July 06, 2024 12:00am Complies with drug therapy Start: 07-06-2024 calcium carbon ate Active PO July 06, 2024 12:00am cholecalciferol 0.025 mg oral capsule (18 sources) Vitamin D Start: 04-13-2024 take 1 capsule by mouth once daily Cholecalciferol (Vitamin D3) 25 mcg (1,000 unit) capsule Active 25 ug PO daily April 13, 2024 1:00am Complies with drug therapy Start: 10-08-2023 End: 04-13-2024 take 1 capsule by mouth every week Cholecalciferol (Vitamin D3) 1,250 mcg (50,000 unit) capsule Discontinued 1250 ug PO EVERY WEEK 12 October 08, 2023 12:00am April 13, 2024 10:47am Continuous Glucose Professor Of Finance (FreeStyle Caroline 2 [place] Systm) Device (3 sources) Start: 06-01-2023 Continuous Glu cose Professor Of Finance (FreeStyle Caroline 2 [place] Systm) Device 06/01/2023 Active Continuous Glucose Sensor (Dexcom G6 Sensor) Misc (3 sources) Start: 05-11-2023 Continuous Glu cose Sensor (Dexcom G6 Sensor) Misc USE 1 DIRECTED 05/11/2023 Active Continuous Glucose Sensor (FreeStyle Caroline 2 Sensor Systm) Misc (3 sources) Start: 05-31-2023 Continuous Glu cose Sensor (FreeStyle Caroline 2 Sensor Systm) Misc 05/31/2023 Active Dulaglutide (20 sources) GLP-1 Receptor Agonist Start: 08-30-2024 Dulaglutide (Sabinoi ty) 4.5 mg/0.5 mL pen injector Active 4.5 mg SC EVERY WEEK 6 August 30, 2024 12:00am Type 2 diabetes mellitus Type 2 diabetes mellitus with hyperglycemia termination clerk (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 Complies with drug therapy Start: 05-20-2021 Dulaglutide (T rulicity) 3 mg/0.5 mL pen injector Active 3 MG SC EVERY WEEK May 20, 2021 8:10am Start: 05-20-2021 End: 08-05-2023 Dulaglutide (Trulicity) 3 mg /0.5 mL pen injector Discontinued 3 mg SC EVERY WEEK May 20, 2021 12:00am August 05, 2023 11:07am Start: 05-20-2021 Dulaglutide (T rulicity) 3 mg/0.5 mL pen injector Active 3 MG SC EVERY WEEK May 19, 2021 11:00pm Start: 01-27-2019 End: 05-20-2021 Dulaglutide 0.75 mg/0.5 mL p en injector Discontinued SC 4 0 January 27, 2019 1:00am May 20, 2021 8:12am Start: 01-27-2019 End: 05-20-2021 Dulaglutide Discontinued SC 4 January 27, 2019 2:10pm May 20, 2021 8:12am DULoxetine 60 mg delayed release oral capsule (20 sources) Serotonin and Norepinephrine Reuptake Inhibitor Start: 05-20-2021 End: 11-15-2024 take 1 capsule by mouth once daily Duloxetine 60 mg capsule,delayed release(DR/EC) Active 60 mg PO DAILY 90 November 15, 2024 9:39am Complies with drug therapy 120 actuat fluticasone propionate 0.044 mg/actuat metered dose inhaler (3 sources) Corticosteroid Start: 10-13-2022 Flovent HFA 44 MCG/ACT Aerosol inhaler 10/13/2022 Active furosemide 20 mg oral tablet (3 sources) Loop Diuretic Start: 05-31-2023 furOSEmide 20 MG tablet 05/31/2023 Active gabapentin 100 mg oral capsule (13 sources) Anti-epileptic Agent Start: 11-16-2024 take 1 capsule by mouth at bedtime as needed Gabapentin 100 mg capsule Active 100 mg PO AT BEDTIME as needed for neuropathy 30 November 16, 2024 12:00am Complies with drug therapy Start: 05-20-2021 End: 10-06-2023 take 1 capsule by mouth once daily Gabapentin 100 mg capsule Discontinued 100 mg PO DAILY May 20, 2021 12:00am October 06, 2023 11:11am glipiZIDE er 10 mg 24 hr extended release oral tablet (13 sources) Sulfonylurea Start: 08-05-2023 End: 10-24-2024 take 1 tablet by mouth twice daily Glipizide 10 mg tablet extended release 24hr Active 10 mg PO TWICE A DAY 180 October 24, 2024 2:53pm Complies with drug therapy Start: 05-03-2023 take 2 tablets by mo uth once daily glipiZIDE 10 MG tablet XL Take 2 tablets by mouth daily. 05/03/2023 Active hydroCHLOROthiazide 12.5 mg / losartan potassium 100 mg oral tablet (20 sources) Thiazide Diuretic, Angiotensin 2 Receptor Matthew Start: 10-07-2023 End: 11-16-2024 Losartan-Hydrochlorothiazide 100-12.5 mg tablet Active 1 {tbl} PO DAILY 90 November 16, 2024 10:25am Complies with drug therapy Start: 06-11-2023 losartan-hydro chlorothiazide 100-12.5 MG tablet 06/11/2023 Active Start: 05-20-2021 End: 10-07-2023 Losartan-Hydrochlorothiazide 50-12.5 mg tablet Discontinued 1 {tbl} PO DAILY May 20, 2021 12:00am October 07, 2023 9:55am Start: 05-20-2021 take 1 tablet by devon once daily Losartan-Hydrochlorothiazide Active 1 TA BLET PO DAILY May 20, 2021 8:08am 3 ml insulin detemir 100 unt/ml pen injector (3 sources) Insulin Analog Start: 05-13-2023 Levemir FlexPe n 100 UNIT/ML Solution Pen-injector injection INJECT 40 UNITS SUBCUTANEOUSLY ONCE DAILY WITH EVENING MEAL 05/13/2023 Active 3 ml insulin glargine 100 unt/ml pen injector (20 sources) Insulin Analog Start: 04-20-2024 Insulin Glargi ne (Lantus Solostar U-100 Insulin) 100 unit/mL (3 mL) insulin pen Active 14 U SC DAILY February 27th, 2025 4:28pm Type 2 diabetes mellitus Type 2 diabetes mellitus without complications Complies with drug therapy Start: 08-05-2023 End: 04-20-2024 Insulin Glargine (Lantus Clare ostar U-100 Insulin) 100 unit/mL (3 mL) insulin pen Discontinued 30 U SC DAILY 9 5 December 24, 2023 1:44pm April 20, 2024 4:29pm Type 2 diabetes mellitus Type 2 diabetes mellitus without complications 3 ml insulin lispro 100 unt/ml pen injector (20 sources) Insulin Analog Start: 12-24-2023 Insulin Lispro (Humalog Kwikpen Insulin) 100 unit/mL insulin pen Active 5 U SC THREE TIMES A DAY 15 0 December 24, 2023 1:44pm Complies with drug therapy Start: 04-01-2023 Insulin lispro , 1 Unit Dial, 100 UNIT/ML Solution Pen- injector INJECT 1 ML BEFORE EVERY MEAL DIRECTED, SLIDING SCALE LESS THAN 70 CALL OFFICE. 71-150 NONE. 151-200 4 UNITS. 201-250 8 UNITS. 251-300 12 UNITS. 301-350 16 UNITS. 351-400 PLUS 20 UNITS. MAXIMUM DAILY DOSE 60 UNITS 04/01/2023 Active Start: 01-04-2023 End: 12-24-2023 Insulin Lispro (Humalog Kwik pen Insulin) 100 unit/mL insulin pen Discontinued 1 sliding scale dose SC Use as Directed January 04, 2023 1:00am December 24, 2023 1:45pm Start: 01-04-2023 Insulin Lispro (Humalog Kwikpen Insulin) 100 unit/mL insulin pen Active 1 sliding scale dose SC Use as Directed January 04, 2023 12:00am mecobalamin (5 sources) Start: 07-06-2024 take 1 tablet by mouth once daily Mecobalamin (Vitamin B12) 500 mcg tablet,chewable Active 500 ug PO DAILY July 06, 2024 12:00am Start: 07-06-2024 Mecobalamin (V itamin B12) 500 mcg tablet,chewable Active ug PO July 06, 2024 12:00am methIMAzole 10 mg oral tablet (20 sources) Thyroid Hormone Synthesis Inhibitor Start: 10-07-2023 End: 08-24-2024 take 2 tablets by mouth once daily Methimazole 10 mg tablet Active 20 mg PO DAILY 60 3 August 24, 2024 10:22am Hyperthyroidism Thyrotoxicosis, unspecified without thyrotoxic crisis or storm Complies with drug therapy naproxen 500 mg oral tablet (1 source) Nonsteroidal Anti-inflammator y Drug Start: 05-06-2024 take 1 tablet by mouth three times daily Naproxen (Naprosyn) 500 MG Tablet Active 500 MG PO Three Times A Day May 06, 2024 12:00am Ozempic, 0.25 or 0.5 MG/DOSE, 2 MG/3ML Solution Pen-injector (3 sources) Start: 05-05-2023 inject 0.5 mg by subcutaneous injection every week Ozempic, 0.25 or 0.5 MG/DOSE, 2 MG/3ML Solution Pen-injector INJECT 0.5 MG UNDER THE SKIN WEEKLY 05/05/2023 Active microencapsulated potassium chloride 20 meq extended release oral tablet (20 sources) Start: 08-05-2023 End: 11-16-2024 take 1 tablet by mouth once daily Potassium Chloride 20 mEq tablet,ER particles/crystals Active 20 meq PO daily 90 November 16, 2024 10:25am Complies with drug therapy Start: 06-11-2023 Potassium chlo ride 20 MEQ Tab CR tablet 06/11/2023 Active pramipexole dihydrochloride 1 mg oral tablet (15 sources) Nonergot Dopamine Agonist Start: 05-27-2023 take 1 tablet by mouth at bedtime pramipexole 1 MG tablet Take 1 tablet by mouth at bedtime. 05/27/2023 Active Start: 02-08-2018 End: 01-04-2023 take 1 tablet by mouth at bedtime Pramipexole 1 mg tablet Discontinued 1 mg PO AT BEDTIME February 08, 2018 1:00am January 04, 2023 11:41am rOPINIRole 1 mg oral tablet (13 sources) Nonergot Dopamine Agonist Start: 08-05-2023 End: 11-16-2024 take 1 tablet by mouth at bedtime Ropinirole 1 mg tablet Active 1 mg PO AT BEDTIME 90 November 16, 2024 10:25am Complies with drug therapy Start: 03-12-2023 take 1 tablet by devon th at bedtime rOPINIRole 1 MG tablet Take 1 tablet by mouth at bedtime. 03/12/2023 Active Semaglutide (Ozempic) 2 mg/d ose (8 mg/3 mL) pen injector (20 sources) Start: 12-24-2023 Semaglutide (O zempic) 2 mg/dose (8 mg/3 mL) pen injector Active 2 mg SC MILLS December 24, 2023 1:44pm Start: 10-06-2023 End: 12-24-2023 Semaglutide (Ozempic) 2 mg/d ose (8 mg/3 mL) pen injector Discontinued 2 mg SC MILLS October 06, 2023 12:00am December 24, 2023 1:45pm Start: 08-20-2023 End: 10-06-2023 Semaglutide (Ozempic) 2 mg/d ose (8 mg/3 mL) pen injector Discontinued 2 mg SC EVERY WEEK 3 August 20, 2023 12:00am October 06, 2023 11:13am traZODone hydrochloride 150 mg oral tablet (14 sources) Serotonin Reuptake Inhibitor Start: 01-04-2023 End: 11-16-2024 Trazodone 150 mg tablet Active 75 mg PO AT BEDTIME 90 1 November 16, 2024 10:25am Complies with drug therapy Start: 01-04-2023 take 1 tablet by mouth at bedt rosalba Trazodone 150 mg tablet Active 150 mg PO AT BEDTIME January 04, 2023 1:00am Trulicity 4.5 MG/0.5ML Solution Pen-injector (3 sources) Start: 11-22-2022 Trulicity 4.5 MG/0.5ML Solution Pen-injector 11/22/2022 Active vitamin b12 0.5 mg chewable tablet (1 source) Vitamin B12 Start: 07-06-2024 take 1 tablet by mouth once daily Mecobalamin (Vitamin B12) 500 mcg tablet,chewable Active 500 ug PO DAILY July 06, 2024 12:00am Complies with drug therapy Completed/Discontinued Medications Medication Drug Class(es) Dates Sig (Normalized) Sig (Original) acetaminophen 500 mg oral tablet (9 sources) Start: 10-20-2023 End: 04-13-2024 take 2 tablets by mouth every six hours Acetaminophen 500 mg tablet Discontinued 1000 mg PO EVERY 6 HOURS 100 0 October 20, 2023 12:00am April 13, 2024 10:47am acetaminophen 325 mg / oxyCODONE hydrochloride 5 mg oral tablet (9 sources) Opioid Agonist Start: 02-10-2023 End: 08-05-2023 Oxycodone-Acetamino phen 5-325 mg tablet Discontinued 1 {tbl} PO DAILY 0 February 10, 2023 1:00am August 05, 2023 11:08am apixaban 2.5 mg oral tablet (9 sources) Factor Xa Inhibitor Start: 10-20-2023 End: 12-01-2023 take 1 tablet by mouth twice daily in the morning Apixaban (Eliquis) 2.5 mg tablet Discontinued 2.5 mg PO TWICE A DAY 42 0 October 20, 2023 12:00am December 01, 2023 9:38am Begin morning after surgery. Calcium Carb, Citrate, Malate 250 mg calcium capsule (6 sources) Start: 07-06-2024 End: 07-06-2024 Calcium Carb, Citrate, Malate 250 mg calcium capsule Discontinued mg PO July 06, 2024 12:00am July 06, 2024 10:55pm Start: 07-06-2024 Calcium Carb, Citrate, Malate 250 mg calcium capsule Active mg PO July 06, 2024 12:00am celecoxib 200 mg oral capsule (9 sources) Nonsteroidal Anti-inflammatory Drug Start: 03-29-2023 End: 08-05-2023 take 1 capsule by mouth once daily Celecoxib (Celebrex) 200 mg capsule Discontinued 200 mg PO DAILY 30 0 March 29, 2023 1:00am August 05, 2023 11:07am Do not take in conjunction with other NSAID. Tylenol is okay. sugar-free cholestyramine resin 4000 mg powder for oral suspension (5 sources) Bile Acid Sequestrant Start: 07-06-2024 End: 07-06-2024 Cholestyramine-Aspart shira (Cholestyramine Light) 4 gram powder Discontinued 4 g PO THREE TIMES A DAY 210 July 06, 2024 12:00am July 06, 2024 10:56pm Diarrhea Diarrhea, unspecified administer w/meal; avoid other meds within 1hr before or 4-6hr after dose To start with QD on day one and then BID on day 2, and the TID on day 3 empagliflozin 25 mg oral tablet (9 sources) Sodium-Glucose Cotransporter 2 Inhibitor Start: 01-10-2024 End: 07-08-2024 take 1 tablet by mouth once daily Empagliflozin (Jardiance) 25 mg tablet Discontinued 25 mg PO daily 30 5 January 10, 2024 1:00am July 08, 2024 10:09am Type 2 diabetes mellitus Type 2 diabetes mellitus with hyperglycemia termination clerk (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 On Hold: Ordered etodolac 500 mg oral tablet (19 sources) Nonsteroidal Anti-inflammatory Drug Start: 01-04-2023 End: 03-29-2023 take 1 tablet by mouth twice daily Etodolac 500 mg tablet Discontinued 500 mg PO TWICE A DAY 60 0 February 12, 2023 3:54pm March 29, 2023 4:02pm Do not take in conjunction with other NSAID. Tylenol is okay. fluconazole 200 mg oral tablet (6 sources) Azole Antifungal Start: 07-06-2024 End: 07-06-2024 take 1 tablet by mouth once daily Fluconazole (Diflucan) 200 mg tablet Discontinued 200 mg PO daily 2 0 July 06, 2024 12:00am July 06, 2024 10:56pm Candidiasis of vagina Acute candidiasis of vulva and vagina 1 tab, repeat in 3 days hydrOXYzine pamoate 50 mg oral capsule (12 sources) Antihistamine Start: 05-27-2021 End: 01-04-2023 take 1 capsule by mouth at bedtime as needed Hydroxyzine Pamoate (Vistaril) 50 mg capsule Discontinued 50 mg PO AT BEDTIME as needed for itching 20 0 May 27, 2021 12:00am January 04, 2023 11:40am losartan potassium 25 mg oral tablet (12 sources) Angiotensin 2 Receptor Matthew Start: 02-08-2018 End: 05-20-2021 take 1 tablet by mouth once daily Losartan 25 mg tablet Discontinued 25 mg PO DAILY February 08, 2018 1:00am May 20, 2021 8:08am metFORMIN hydrochloride 500 mg oral tablet (12 sources) Biguanide Start: 02-08-2018 End: 01-04-2023 take 1 tablet by mouth twice daily Metformin 500 mg tablet Discontinued 500 mg PO TWICE A DAY February 08, 2018 1:00am January 04, 2023 11:41am methylPREDNISolone 4 mg oral tablet (10 sources) Corticosteroid Start: 11-27-2022 End: 01-04-2023 take 1 tablet by mouth once Methylprednisolone (Medrol (Drew)) 4 mg tablets,dose pack Discontinued 0 PO per package directions 21 0 November 27, 2022 12:00am January 04, 2023 11:41am Pain of left hip Osteoarthritis of left hip Pain in left hip Unilateral primary osteoarthritis, left hip pain in hip PO PER PKG DIR ondansetron 4 mg oral tablet (12 sources) Serotonin-3 Receptor Antagonist Start: 05-20-2021 End: 01-04-2023 take 1 tablet by mouth every eight hours Ondansetron Hcl 4 mg tablet Discontinued 4 mg PO Q8H May 20, 2021 12:00am January 04, 2023 11:41am oxyCODONE hydrochloride 5 mg oral tablet (9 sources) Opioid Agonist Start: 10-20-2023 End: 11-01-2023 take 5-10 mg by mouth every six hours as needed for pain Oxycodone 5 mg tablet Discontinued 5 - 10 mg PO EVERY 6 HOURS as needed for pain 60 7 0 October 20, 2023 November 01, 2023 12:58pm Other acute postprocedural pain Other acute postprocedural pain pantoprazole 20 mg delayed release oral tablet (15 sources) Proton Pump Inhibitor Start: 05-20-2021 End: 10-06-2023 take 1 tablet by mouth once daily Pantoprazole 20 mg tablet,delayed release (DR/EC) Discontinued 20 mg PO DAILY May 20, 2021 12:00am October 06, 2023 11:11am Semaglutide (9 sources) Start: 03-29-2023 End: 08-05-2023 Semaglutide (Ozempic) 0.25 mg or 0.5 mg (2 mg/3 mL) pen injector Discontinued 0.5 mg SC March 29, 2023 1:00am August 05, 2023 11:09am Semaglutide (9 sources) Start: 08-05-2023 End: 08-20-2023 Semaglutide (Ozempic) 1 mg/dose (4 mg/3 mL) pen injector Discontinued 1 mg SC EVERY WEEK August 05, 2023 12:00am August 20, 2023 12:55pm Semaglutide (3 sources) Start: 12-24-2023 End: 08-30-2024 Semaglutide (Ozempic) 2 mg/dose (8 mg/3 mL) pen injector Discontinued 2 mg SC MILLS 9 December 24, 2023 1:44pm August 30, 2024 12:49pm Start: 10-06-2023 End: 12-24-2023 Semaglutide (Ozempic) 2 mg/d ose (8 mg/3 mL) pen injector Discontinued 2 mg SC MILLS October 06, 2023 12:00am December 24, 2023 1:45pm Start: 08-20-2023 End: 10-06-2023 Semaglutide (Ozempic) 2 mg/d ose (8 mg/3 mL) pen injector Discontinued 2 mg SC EVERY WEEK 3 3 August 20, 2023 12:00am October 06, 2023 11:13am SITagliptin 100 mg oral tablet (20 sources) Dipeptidyl Peptidase 4 Inhibitor Start: 01-27-2019 End: 01-04-2023 take 1 tablet by mouth once daily Sitagliptin Phosphate (Januvia) 100 mg tablet Discontinued 100 mg PO DAILY May 20, 2021 12:00am January 04, 2023 11:42am Start: 01-27-2019 End: 05-20-2021 Sitagliptin Phosphate 100 mg tablet Discontinued PO 30 0 January 27, 2019 1:00am May 20, 2021 8:12am tiZANidine 4 mg oral tablet (19 sources) Central alpha-2 Adrenergic Agonist Start: 01-04-2023 End: 04-13-2024 take 1 tablet by mouth twice daily as needed Tizanidine 4 mg tablet Discontinued 4 mg PO TWICE A DAY as needed for muscle spasticity August 05, 2023 11:09am April 13, 2024 10:48am Start: 01-04-2023 Tizanidine Act ophelia MG PO January 04, 2023 12:00am Problems Active Problems Problem Classification Problem Date Documented Da te Episodic/Chronic Anxiety disorders (18 sources) Mixed anxiety and depressive disorder; Translations: [Anxiety disorder, unspecified] 04-20-2024 Chronic Asthma (12 sources) Asthma; Translations: [Unspecified asthma, uncomplicated] 05-20-2021 Chronic Cancer of cervix (7 sources) Atypical squamous cells of undetermined significance on cervical Papanicolaou smear; Translations: [Atypical squamous cells of undetermined significance on cytologic smear of cervix (ASC-US)] 06-01-2024 Episodic Comment on above: 2024 Diabetes mellitus with complications (14 sources) Neuropathy due to diabetes mellitus; Translations: [Type 2 diabetes mellitus with diabetic neuropathy, unspecified] Onset: 5 05-16-2021 Chronic Diabetes mellitus without complication (20 sources) Type 2 diabetes mellitus; Translations: [Type 2 diabetes mellitus without complications] Onset: 5 08-05-2023 Chronic Diabetes mellitus without complication (8 sources) Diabetes mellitus without complication Disorders of lipid metabolism (20 sources) Hyperlipidemia; Translations: [Hyperlipidemia, unspecified] Onset: 5 05-16-2021 Chronic Esophageal disorders (12 sources) Gastroesophageal reflux disease; Translations: [Gastro-esophageal reflux disease without esophagitis] 05-16-2021 Chronic Essential hypertension (20 sources) Hypertensive disorder; Translations: [Essential (primary) hypertension] Onset: Chronic Mood disorders (12 sources) Mild depression; Translations: [Mild depression] 05-16-2021 Chronic Mycoses (10 sources) Candidiasis of vagina; Translations: [Candidiasis of vagina] 07-06-2024 Episodic Nutritional deficiencies (20 sources) Vitamin D deficiency; Translations: [Vitamin D deficiency, unspecified] Onset: 5 10-07-2023 Chronic Osteoarthritis (17 sources) Osteoarthritis of left hip joint; Translations: [Unilateral primary osteoarthritis, left hip] Onset: 4 01-04-2023 Chronic Other connective tissue disease (9 sources) History of total hip arthroplasty; Translations: [Presence of left artificial hip joint] 10-20-2023 Chronic Other connective tissue disease (1 source) Presence of left artificial hip joint; Translations: [Presence of left artificial hip joint] Onset: 4 Chronic Other connective tissue disease (1 source) Other specified enthesopathies of unspecified lower limb, excluding foot; Translations: [Other synovitis and tenosynovitis] 01-04-2023 Episodic Other connective tissue disease (9 sources) Tear of right rotator cuff; Translations: [Unspecified rotator cuff tear or rupture of right shoulder, not specified as traumatic] 02-11-2023 Episodic Other gastrointestinal disorders (1 source) Irritable bowel syndrome without diarrhea; Translations: [Irritable bowel syndrome, unspecified] Onset: Chronic Other gastrointestinal disorders (16 sources) Diarrhea; Translations: [Diarrhea, unspecified] 07-06-2024 Episodic Other hereditary and degenerative nervous system conditions (12 sources) Restless legs; Translations: [Restless legs syndrome] 05-20-2021 Chronic Other nervous system disorders (9 sources) Acute postoperative pain; Translations: [Other acute postprocedural pain] 10-20-2023 Episodic Other non-traumatic joint disorders (10 sources) Disorder of shoulder; Translations: [Other specified joint disorders, right shoulder] 11-13-2022 Episodic Other non-traumatic joint disorders (11 sources) Pain in right shoulder; Translations: [Right shoulder pain] 11-13-2022 Episodic Other non-traumatic joint disorders (13 sources) Hip pain; Translations: [Pain in left hip] 11-27-2022 Episodic Other non-traumatic joint disorders (2 sources) Other specified joint disorders, right shoulder; Translations: [Other specified disorders of joint, shoulder region] 11-13-2022 Episodic Other non-traumatic joint disorders (3 sources) Pain in left hip; Translations: [Pain in joint, pelvic region and thigh] Onset: 4 11-27-2022 Episodic Other nutritional; endocrine; and metabolic disorders (12 sources) Morbid obesity; Translations: [Morbid (severe) obesity due to excess calories] 02-08-2018 Chronic Other nutritional; endocrine; and metabolic disorders (1 source) Morbid (severe) obesity due to excess calories; Translations: [Morbid obesity] 01-04-2023 Chronic Other nutritional; endocrine; and metabolic disorders (18 sources) Obesity; Translations: [Obesity, unspecified] 08-05-2023 Chronic Other nutritional; endocrine; and metabolic disorders (9 sources) Body mass index 30+ - obesity; Translations: [Obesity, unspecified] 07-06-2024 Chronic Other nutritional; endocrine; and metabolic disorders (1 source) Obesity, unspecified; Translations: [Obesity, unspecified] Onset: 5 Chronic Other screening for suspected conditions (not mental disorders or infectious disease) (16 sources) Endometrium thickened; Translations: [Abnormal findings on diagnostic imaging of other specified body structures] Chronic Residual codes; unclassified (20 sources) Obstructive sleep apnea syndrome; Translations: [Obstructive sleep apnea (adult) (pediatric)] 02-08-2018 Chronic Comment on above: AHI 45 Residual codes; unclassified (12 sources) Hypoxia; Translations: [Idiopathic sleep related nonobstructive alveolar hypoventilation] 02-08-2018 Chronic Residual codes; unclassified (12 sources) Bilateral lower limb edema; Translations: [Localized edema] 05-16-2021 Episodic Spondylosis; intervertebral disc disorders; other back problems (12 sources) Degeneration of lumbar intervertebral disc; Translations: [Other intervertebral disc degeneration, lumbar region] 01-04-2023 Chronic Spondylosis; intervertebral disc disorders; other back problems (11 sources) Sacroiliac disorder; Translations: [Sacrococcygeal disorders, not elsewhere classified] 01-04-2023 Episodic Sprains and strains (1 source) Sprain of right thumb; Translations: [Unspecified sprain of right thumb, initial encounter] 05-06-2024 Episodic Thyroid disorders (20 sources) Hyperthyroidism; Translations: [Thyrotoxicosis, unspecified without thyrotoxic crisis or storm] Onset: 5 10-07-2023 Chronic Unclassified (2 sources) ARTHRITIS OF RIGHT FOOT Onset: 8 Unclassified (16 sources) Z00.00 - Encounter for general adult medical examination without abnormal findings Unclassified (1 source) Acute candidiasis of vulva and vagina; Translations: [Acute candidiasis of vulva and vagina] Onset: Past or Other Problems Problem Classification Problem Date Documented Da te Episodic/Chronic Acute and unspecified renal failure (9 sources) Acute renal failure syndrome; Translations: [Acute kidney failure, unspecified] Onset: 07-10-2024 07-06-2024 Episodic Fluid and electrolyte disorders (8 sources) Hyponatremia; Translations: [Hypo-osmolality and hyponatremia] Onset: 07-08-2024 07-06-2024 Episodic Other aftercare (1 source) termination clerk (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; Translations: [assisted (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] Onset: 07-06-2024 Episodic Other gastrointestinal disorders (2 sources) Diarrhea, unspecified; Translations: [Diarrhea, unspecified] Onset: 07-06-2024 Episodic Other screening for suspected conditions (not mental disorders or infectious disease) (12 sources) Decreased thyroid stimulating hormone level; Translations: [Other specified abnormal findings of blood chemistry] Onset: 05-30-2024 10-07-2023 Episodic Results Test Name Value Interpretation Reference Range Facility Internal Medicine Office Vis [email or web address] 11-16-2024 Internal Medicine Office Visit [facility] Internal Medicine [address] [place] [address] OFFICE VISIT Date of Service: 11/16/24 MR#: [id number] Acct: [id number] Name: LIGIA RIVAS Rep #: [id number] : 1960 Provider: ARCADIO miles Age/Sex: 63/F Location: [facility] Status: Signed Intake Vital Signs 07/07/24 14:19 11/16/24 09:59 Height 5 ft 7 in 5 ft 7 in Weight: 260 lb BMI 40.7 BP 138/82 H Blood Pressure Location Rt brachial Position Sitting Respiration 16 Pulse 94 Pulse Source Monitor Temp 97.3 F L Temp Source Temporal Pulse Oximetry (%) 96 Oxygen Delivery Method room air Intake Visit Reasons: medication refills 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: No Accompanied by: Self Is patient in pain?: No Allergies No Known Allergies Allergy (Verified 11/16/24 09:57) Medications ???Medication ???Instructions ???Recorded ???Confirmed ???Type albuterol sulfate 90 mcg/actuation 2 puff inhalation Q6H PRN 11/16/24 History aerosol inhaler (Ventolin HFA) shortness of breath or wheezing blood-glucose transmitter (Dexcom #1 ea 01/04/23 11/16/24 History G6 Transmitter device) insulin lispro 100 unit/mL 5 unit (0.05 mL) subcut TID #15 mL 12/24/23 11/16/24 Rx subcutaneous pen (Humalog KwikPen (U-100) Insulin) blood sugar diagnostic (OneTouch #100 ea 04/13/24 11/16/24 Rx Ultra Test strips) cholecalciferol (vitamin D3) 25 25 mcg PO QDAY 04/13/24 11/16/24 H istory mcg (1,000 unit) capsule insulin glargine 100 unit/mL (3 14 unit subcut DAILY 04/20/2410/24 History mL) subcutaneous pen (Lantus Solostar U-100 Insulin) calcium carbonate PO 07/06/24 11/16/24 History mecobalamin (vitamin B12) 500 mcg 500 mcg PO DAILY 07/06/24 5 History chewable tablet methimazole 10 mg tablet 20 mg (2 x 10 mg) PO DAILY #60 tab s 08/24/24 11/16/24 Rx blood-glucose sensor (FreeStyle #6 ea 08/29/24 11/16/24 Rx Caroline 3 Plus Sensor device) dulaglutide 4.5 mg/0.5 mL 4.5 mg (0.5 mL) subcut QWEEK #6 mL 08/30/24 11/16/24 Rx subcutaneous pen injector (Trulicity) glipizide 10 mg tablet, extended 10 mg PO BID #180 tabs 10/24/24 Rx release 24 hr duloxetine 60 mg capsule,delayed 60 mg PO DAILY #90 caps 11/15/24 0 11/16/24 Rx release gabapentin 100 mg capsule 100 mg PO QHS PRN neuropathy #30 0 11/16/24 11/16/24 Rx caps losartan 100 1 tab PO DAILY #90 tabs 11/16/24 0 11/16/24 Rx mg-hydrochlorothiazide 12.5 mg tablet potassium chloride 20 mEq 20 meq PO QDAY #90 tabs 11/16/24 0 11/16/24 Rx tablet,extended release(part/cryst) ropinirole 1 mg tablet 1 mg PO QHS #90 tabs 11/16/2410/24 Rx trazodone 150 mg tablet 75 mg (1/2 x 150 mg) PO QHS #90 11/16/24 Rx tabs Nurse's Note: medication refills [facility] History Anxiety and depression Health care maintenance Wears contact lenses Depression Thyroid disease Insulin dependent diabetes mellitus Ambulates with cane Arthritis PONV (postoperative nausea and vomiting) High cholesterol Dietary restriction Non-smoker CPAP (continuous positive airway pressure) dependence Sleep apnea History of stress test Right rotator cuff tear Osteoarthritis of left hip Left hip pain Impingement of right shoulder Right shoulder pain Diabetic neuropathy Mild depression Hyperlipidemia GERD (gastroesophageal reflux disease) Muscle cramps Bilateral lower extremity edema Endometrial thickening on ultrasound Patellar fracture HTN (hypertension) Type 2 diabetes mellitus GITA (obstructive sleep apnea) Surgical History History of total left hip replacement History of surgical procedure on eye proper using laser S/P foot surgery, left Tubal ligation status H/O section Hx of cholecystectomy H/O foot surgery Family History Father Diabetes Hypertension COPD (chronic obstructive pulmonary disease) Heart disease Kidney disease Brother Heart disease Hypertension Diabetes Pancreatic cancer Mother A-fib Heart disease Social History adopted: No household members: spouse, family and other details: has step son and custody of 3 grandchildren housing: house number of children: 3 current occupational status: employed current occupation: [employer] People living pets and animals: Yes pets and animals: cat(s) and dog(s) history of recent travel: Yes () out of state: Yes out of country: No Smoking Status: Never smoker Electronic Cigarette Use: not used second hand exposure: No alcohol intake: (more content not included)... Normal [facility] Basic Metabolic Profile (BMP )on 07-15-2024 BUN Normal - [facility] Comment on above: Result Comment: Canc elled via OM: Order cancelled - Patient discharged Performed By: #### L [id number], L500.4050 #### [facility] [address] [place], [address] BUN/CRE Normal - [facility] Comment on above: Result Comment: Canc elled via OM: Order cancelled - Patient discharged Performed By: #### L [id number], [id number] #### [facility] [address] [place], [address] Calcium Normal 7.6-11.0 [facility] Comment on above: Result Comment: Canc elled via OM: Order cancelled - Patient discharged Performed By: #### L [id number], [id number] #### [facility] [address] [place], [address] CL Normal 98-108 [facility] Comment on above: Result Comment: Canc elled via OM: Order cancelled - Patient discharged Performed By: #### L [id number], [id number] #### [facility] [address] [place], [address] CO2 Normal 21.0-32.0 [facility] Comment on above: Result Comment: Canc elled via OM: Order cancelled - Patient discharged Performed By: #### L [id number], [id number] #### [facility] [address] [place], [address] CREAT,SERUM Normal 0.70-1.20 [facility] Comment on above: Result Comment: Canc elled via OM: Order cancelled - Patient discharged Performed By: #### L [id number], [id number] #### [facility] [address] [place], [address] eGFR Normal >60 [facility] Comment on above: Result Comment: Canc elled via OM: Order cancelled - Patient discharged Performed By: #### L [id number], [id number] #### [facility] [address] [place], [address] GAP Normal 5-15 [facility] Comment on above: Result Comment: Canc elled via OM: Order cancelled - Patient discharged Performed By: #### L [id number], [id number] #### [facility] [address] [place], [address] GLU Normal 70-99 [facility] Comment on above: Result Comment: Canc elled via OM: Order cancelled - Patient discharged Performed By: #### L [id number], [id number] #### [facility] [address] [place], [address] Potassium Normal 3.3-5.1 [facility] Comment on above: Result Comment: Canc elled via OM: Order cancelled - Patient discharged Performed By: #### L [id number], [id number] #### [facility] [address] [place], [address] Basic Metabolic Profile (BMP) Normal 133-145 [facility] Comment on above: Result Comment: Canc elled via OM: Order cancelled - Patient discharged Performed By: #### L [id number], [id number] #### [facility] [address] [place], [address] CBC W/Diff, Automatedon 05-2 Absolute Neut Normal 2.0-7.7 [facility] Comment on above: Result Comment: Canc elled via OM: Order cancelled - Patient discharged Performed By: #### L [id number], [id number] #### [facility] [address] [place], [address] HCT Normal 37-47 [facility] Comment on above: Result Comment: Canc elled via OM: Order cancelled - Patient discharged Performed By: #### L [id number], [id number] #### [facility] [address] [place], [address] HGB Normal 12.0-15.0 [facility] Comment on above: Result Comment: Canc elled via OM: Order cancelled - Patient discharged Performed By: #### L [id number], [id number] #### [facility] [address] [place], [address] MCH Normal 27.0-32.0 [facility] Comment on above: Result Comment: Canc elled via OM: Order cancelled - Patient discharged Performed By: #### L [id number], [id number] #### [facility] [address] [place], [address] MCHC Normal 32-36 [facility] Comment on above: Result Comment: Canc elled via OM: Order cancelled - Patient discharged Performed By: #### L [id number], [id number] #### [facility] [address] [place], [address] MCV Normal 81-99 [facility] Comment on above: Result Comment: Canc elled via OM: Order cancelled - Patient discharged Performed By: #### L [id number], [id number] #### [facility] [address] [place], [address] NEUT% Normal 47-70 [facility] Comment on above: Result Comment: Canc elled via OM: Order cancelled - Patient discharged Performed By: #### L [id number], [id number] #### [facility] [address] [place], [address] PLT Normal 150-450 [facility] Comment on above: Result Comment: Canc elled via OM: Order cancelled - Patient discharged Performed By: #### L [id number], [id number] #### [facility] [address] [place], [address] RBC Normal 4.2-5.4 [facility] Comment on above: Result Comment: Canc elled via OM: Order cancelled - Patient discharged Performed By: #### L [id number], [id number] #### [facility] [address] [place], [address] RDW CV Normal 11.6-14.6 [facility] Comment on above: Result Comment: Canc elled via OM: Order cancelled - Patient discharged Performed By: #### L [id number], [id number] #### [facility] [address] [place], [address] RDW SD Normal 35.1-43.9 [facility] Comment on above: Result Comment: Canc elled via OM: Order cancelled - Patient discharged Performed By: #### L [id number], [id number] #### [facility] [address] [place], [address] WBC Normal 4.4-11.0 [facility] Comment on above: Result Comment: Canc elled via OM: Order cancelled - Patient discharged Performed By: #### L [id number], [id number] #### [facility] [address] [place], [address] Basic Metabolic Profile (BMP )on 07-14-2024 BUN Normal 4-19 [facility] Comment on above: Result Comment: Canc elled via OM: Order cancelled - Patient discharged Performed By: #### L [id number], [id number] #### [facility] [address] [place], [address] BUN/CRE Normal 10-20 [facility] Comment on above: Result Comment: Canc elled via OM: Order cancelled - Patient discharged Performed By: #### L [id number], [id number] #### [facility] [address] [place], [address] Calcium Normal 7.6-11.0 [facility] Comment on above: Result Comment: Canc elled via OM: Order cancelled - Patient discharged Performed By: #### L [id number], L500.4050 #### [facility] [address] [place], [address] CL Normal 98-108 [facility] Comment on above: Result Comment: Canc elled via OM: Order cancelled - Patient discharged Performed By: #### L [id number], [id number] #### [facility] [address] [place], [address] CO2 Normal 21.0-32.0 [facility] Comment on above: Result Comment: Canc elled via OM: Order cancelled - Patient discharged Performed By: #### L [id number], [id number] #### [facility] [address] [place], [address] CREAT,SERUM Normal 0.70-1.20 [facility] Comment on above: Result Comment: Canc elled via OM: Order cancelled - Patient discharged Performed By: #### L [id number], [id number] #### [facility] [address] [place], [address] eGFR Normal >60 [facility] Comment on above: Result Comment: Canc elled via OM: Order cancelled - Patient discharged Performed By: #### L [id number], [id number] #### [facility] [address] [place], [address] GAP Normal 5-15 [facility] Comment on above: Result Comment: Canc elled via OM: Order cancelled - Patient discharged Performed By: #### L [id number], [id number] #### [facility] [address] [place], [address] GLU Normal 70-99 [facility] Comment on above: Result Comment: Canc elled via OM: Order cancelled - Patient discharged Performed By: #### L [id number], [id number] #### [facility] [address] [place], [address] Potassium Normal 3.3-5.1 [facility] Comment on above: Result Comment: Canc elled via OM: Order cancelled - Patient discharged Performed By: #### L [id number], [id number] #### [facility] [address] [place], [address] Basic Metabolic Profile (BMP) Normal 133-145 [facility] Comment on above: Result Comment: Canc elled via OM: Order cancelled - Patient discharged Performed By: #### L [id number], [id number] #### [facility] [address] [place], [address] CBC W/Diff, Automatedon 05-2 Absolute Neut Normal 2.0-7.7 [facility] Comment on above: Result Comment: Canc elled via OM: Order cancelled - Patient discharged Performed By: #### L [id number], L500.4050 #### [facility] [address] [place], [address] HCT Normal 37-47 [facility] Comment on above: Result Comment: Canc elled via OM: Order cancelled - Patient discharged Performed By: #### L [id number], [id number] #### [facility] [address] [place], [address] HGB Normal 12.0-15.0 [facility] Comment on above: Result Comment: Canc elled via OM: Order cancelled - Patient discharged Performed By: #### L [id number], L500.4050 #### [facility] [address] [place], [address] MCH Normal 27.0-32.0 [facility] Comment on above: Result Comment: Canc elled via OM: Order cancelled - Patient discharged Performed By: #### L [id number], [id number] #### [facility] [address] [place], [address] MCHC Normal 32-36 [facility] Comment on above: Result Comment: Canc elled via OM: Order cancelled - Patient discharged Performed By: #### L [id number], [id number] #### [facility] [address] [place], [address] MCV Normal 81-99 [facility] Comment on above: Result Comment: Canc elled via OM: Order cancelled - Patient discharged Performed By: #### L [id number], [id number] #### [facility] [address] [place], [address] NEUT% Normal 47-70 [facility] Comment on above: Result Comment: Canc elled via OM: Order cancelled - Patient discharged Performed By: #### L 501.690, [id number] #### [facility] [address] [place], [address] PLT Normal 150-450 [facility] Comment on above: Result Comment: Canc elled via OM: Order cancelled - Patient discharged Performed By: #### L 501.690, [id number] #### [facility] [address] [place], [address] RBC Normal 4.2-5.4 [facility] Comment on above: Result Comment: Canc elled via OM: Order cancelled - Patient discharged Performed By: #### L 501.690, [id number] #### [facility] [address] [place], [address] RDW CV Normal 11.6-14.6 [facility] Comment on above: Result Comment: Canc elled via OM: Order cancelled - Patient discharged Performed By: #### L 501.690, [id number] #### [facility] [address] [place], [address] RDW SD Normal 35.1-43.9 [facility] Comment on above: Result Comment: Canc elled via OM: Order cancelled - Patient discharged Performed By: #### L [id number], [id number] #### [facility] [address] [place], [address] WBC Normal 4.4-11.0 [facility] Comment on above: Result Comment: Canc elled via OM: Order cancelled - Patient discharged Performed By: #### L 501.690, L500.4050 #### [facility] [address] [place], [address] Basic Metabolic Profile (BMP )on 07-13-2024 BUN Normal 4-19 [facility] Comment on above: Result Comment: Canc elled via OM: Order cancelled - Patient discharged Performed By: #### L [id number], L500.4050 #### [facility] [address] [place], [address] BUN/CRE Normal 10-20 [facility] Comment on above: Result Comment: Canc elled via OM: Order cancelled - Patient discharged Performed By: #### L [id number], L500.4050 #### [facility] [address] [place], [address] Calcium Normal 7.6-11.0 [facility] Comment on above: Result Comment: Canc elled via OM: Order cancelled - Patient discharged Performed By: #### L [id number], [id number] #### [facility] [address] [place], [address] CL Normal 98-108 [facility] Comment on above: Result Comment: Canc elled via OM: Order cancelled - Patient discharged Performed By: #### L [id number], L500.4050 #### [facility] [address] [place], [address] CO2 Normal 21.0-32.0 [facility] Comment on above: Result Comment: Canc elled via OM: Order cancelled - Patient discharged Performed By: #### L 501.6901, L500.4050 #### [facility] [address] [place], [address] CREAT,SERUM Normal 0.70-1.20 [facility] Comment on above: Result Comment: Canc elled via OM: Order cancelled - Patient discharged Performed By: #### L 501.6901, L500.4050 #### [facility] [address] [place], [address] eGFR Normal >60 [facility] Comment on above: Result Comment: Canc elled via OM: Order cancelled - Patient discharged Performed By: #### L 501.6901, L500.4050 #### [facility] [address] [place], [address] GAP Normal 5-15 [facility] Comment on above: Result Comment: Canc elled via OM: Order cancelled - Patient discharged Performed By: #### L 501.6901, L500.4050 #### [facility] [address] [place], [address] GLU Normal 70-99 [facility] Comment on above: Result Comment: Canc elled via OM: Order cancelled - Patient discharged Performed By: #### L 501.6901, L500.4050 #### [facility] [address] [place], [address] Potassium Normal 3.3-5.1 [facility] Comment on above: Result Comment: Canc elled via OM: Order cancelled - Patient discharged Performed By: #### L 501.6901, L500.4050 #### [facility] [address] [place], [address] Basic Metabolic Profile (BMP) Normal 133-145 [facility] Comment on above: Result Comment: Canc elled via OM: Order cancelled - Patient discharged Performed By: #### L 501.6901, L500.4050 #### [facility] [address] [place], [address] CBC W/Diff, Automatedon 05-2 Absolute Neut Normal 2.0-7.7 [facility] Comment on above: Result Comment: Canc elled via OM: Order cancelled - Patient discharged Performed By: #### L 501.6901, L500.4050 #### [facility] [address] [place], [address] HCT Normal 37-47 [facility] Comment on above: Result Comment: Canc elled via OM: Order cancelled - Patient discharged Performed By: #### L 501.6901, L500.4050 #### [facility] [address] [place], [address] HGB Normal 12.0-15.0 [facility] Comment on above: Result Comment: Canc elled via OM: Order cancelled - Patient discharged Performed By: #### L 501.6901, L500.4050 #### [facility] [address] [place], [address] MCH Normal 27.0-32.0 [facility] Comment on above: Result Comment: Canc elled via OM: Order cancelled - Patient discharged Performed By: #### L 501.6901, L500.4050 #### [facility] [address] [place], [address] MCHC Normal 32-36 [facility] Comment on above: Result Comment: Canc elled via OM: Order cancelled - Patient discharged Performed By: #### L 501.6901, L500.4050 #### [facility] [address] [place], [address] MCV Normal 81-99 [facility] Comment on above: Result Comment: Canc elled via OM: Order cancelled - Patient discharged Performed By: #### L 501.6901, L500.4050 #### [facility] [address] [place], [address] NEUT% Normal 47-70 [facility] Comment on above: Result Comment: Canc elled via OM: Order cancelled - Patient discharged Performed By: #### L 501.6901, L500.4050 #### [facility] [address] [place], [address] PLT Normal 150-450 [facility] Comment on above: Result Comment: Canc elled via OM: Order cancelled - Patient discharged Performed By: #### L 501.6901, L500.4050 #### [facility] [address] [place], [address] RBC Normal 4.2-5.4 [facility] Comment on above: Result Comment: Canc elled via OM: Order cancelled - Patient discharged Performed By: #### L 501.6901, L500.4050 #### [facility] [address] [place], [address] RDW CV Normal 11.6-14.6 [facility] Comment on above: Result Comment: Canc elled via OM: Order cancelled - Patient discharged Performed By: #### L 501.6901, L500.4050 #### [facility] [address] [place], [address] RDW SD Normal 35.1-43.9 [facility] Comment on above: Result Comment: Canc elled via OM: Order cancelled - Patient discharged Performed By: #### L 501.6901, L500.4050 #### [facility] [address] [place], [address] WBC Normal 4.4-11.0 [facility] Comment on above: Result Comment: Canc elled via OM: Order cancelled - Patient discharged Performed By: #### L 501.6901, L500.4050 #### [facility] [address] [place], [address] Basic Metabolic Profile (BMP )on 07-12-2024 BUN Normal 4-19 [facility] Comment on above: Result Comment: Canc elled via OM: Order cancelled - Patient discharged Performed By: #### L 500.2500, L100.0100 ####[facility] [address] [place], [address] BUN/CRE Normal 10-20 [facility] Comment on above: Result Comment: Canc elled via OM: Order cancelled - Patient discharged Performed By: #### L 500.2500, L100.0100 ####[facility] [address] [place], [address] Calcium Normal 7.6-11.0 [facility] Comment on above: Result Comment: Canc elled via OM: Order cancelled - Patient discharged Performed By: #### L 500.2500, L100.0100 ####[facility] [address] [place], [address] CL Normal 98-108 [facility] Comment on above: Result Comment: Canc elled via OM: Order cancelled - Patient discharged Performed By: #### L 500.2500, L100.0100 ####[facility] [address] [place], [address] CO2 Normal 21.0-32.0 [facility] Comment on above: Result Comment: Canc elled via OM: Order cancelled - Patient discharged Performed By: #### L 500.2500, L100.0100 ####[facility] [address] [place], [address] CREAT,SERUM Normal 0.70-1.20 [facility] Comment on above: Result Comment: Canc elled via OM: Order cancelled - Patient discharged Performed By: #### L 500.2500, L100.0100 ####[facility] [address] [place], [address] eGFR Normal >60 [facility] Comment on above: Result Comment: Canc elled via OM: Order cancelled - Patient discharged Performed By: #### L 500.2500, L100.0100 ####[facility] [address] [place], [address] GAP Normal 5-15 [facility] Comment on above: Result Comment: Canc elled via OM: Order cancelled - Patient discharged Performed By: #### L 500.2500, L100.0100 ####[facility] [address] [place], [address] GLU Normal 70-99 [facility] Comment on above: Result Comment: Canc elled via OM: Order cancelled - Patient discharged Performed By: #### L 500.2500, L100.0100 ####[facility] [address] [place], [address] Potassium Normal 3.3-5.1 [facility] Comment on above: Result Comment: Canc elled via OM: Order cancelled - Patient discharged Performed By: #### L 500.2500, L100.0100 ####[facility] [address] [place], [address] Basic Metabolic Profile (BMP) Normal 133-145 [facility] Comment on above: Result Comment: Canc elled via OM: Order cancelled - Patient discharged Performed By: #### L 500.2500, L100.0100 ####[facility] [address] [place], [address] CBC W/Diff, Automatedon 05-2 Absolute Neut Normal 2.0-7.7 [facility] Comment on above: Result Comment: Canc elled via OM: Order cancelled - Patient discharged Performed By: #### L 500.2500, L100.0100 ####[facility] [address] [place], [address] HCT Normal 37-47 [facility] Comment on above: Result Comment: Canc elled via OM: Order cancelled - Patient discharged Performed By: #### L 500.2500, L100.0100 ####[facility] [address] [place], [address] HGB Normal 12.0-15.0 [facility] Comment on above: Result Comment: Canc elled via OM: Order cancelled - Patient discharged Performed By: #### L 500.2500, L100.0100 ####[facility] [address] [place], [address] MCH Normal 27.0-32.0 [facility] Comment on above: Result Comment: Canc elled via OM: Order cancelled - Patient discharged Performed By: #### L 500.2500, L100.0100 ####[facility] [address] [place], [address] MCHC Normal 32-36 [facility] Comment on above: Result Comment: Canc elled via OM: Order cancelled - Patient discharged Performed By: #### L 500.2500, L100.0100 ####[facility] [address] [place], [address] MCV Normal 81-99 [facility] Comment on above: Result Comment: Canc elled via OM: Order cancelled - Patient discharged Performed By: #### L 500.2500, L100.0100 ####[facility] [address] [place], [address] NEUT% Normal 47-70 [facility] Comment on above: Result Comment: Canc elled via OM: Order cancelled - Patient discharged Performed By: #### L 500.2500, L100.0100 ####[facility] [address] [place], [address] PLT Normal 150-450 [facility] Comment on above: Result Comment: Canc elled via OM: Order cancelled - Patient discharged Performed By: #### L 500.2500, L100.0100 ####[facility] [address] [place], [address] RBC Normal 4.2-5.4 [facility] Comment on above: Result Comment: Canc elled via OM: Order cancelled - Patient discharged Performed By: #### L 500.2500, L100.0100 ####[facility] [address] [place], [address] RDW CV Normal 11.6-14.6 [facility] Comment on above: Result Comment: Canc elled via OM: Order cancelled - Patient discharged Performed By: #### L 500.2500, L100.0100 ####[facility] [address] [place], [address] RDW SD Normal 35.1-43.9 [facility] Comment on above: Result Comment: Canc elled via OM: Order cancelled - Patient discharged Performed By: #### L 500.2500, L100.0100 ####[facility] [address] [place], [address] WBC Normal 4.4-11.0 [facility] Comment on above: Result Comment: Canc elled via OM: Order cancelled - Patient discharged Performed By: #### L 500.2500, L100.0100 ####[facility] [address] [place], [address] Basic Metabolic Profile (BMP )on 07-11-2024 BUN Normal - [facility] Comment on above: Result Comment: Canc elled via OM: Order cancelled - Patient discharged Performed By: #### L 9000.0810 #### [facility] [address] [place], [address] BUN/CRE Normal - [facility] Comment on above: Result Comment: Canc elled via OM: Order cancelled - Patient discharged Performed By: #### L 9000.0810 #### [facility] [address] [place], [address] Calcium Normal 7.6-11.0 [facility] Comment on above: Result Comment: Canc elled via OM: Order cancelled - Patient discharged Performed By: #### L 9000.0810 #### [facility] [address] [place], [address] CL Normal 98-108 [facility] Comment on above: Result Comment: Canc elled via OM: Order cancelled - Patient discharged Performed By: #### L 9000.0810 #### [facility] [address] [place], [address] CO2 Normal 21.0-32.0 [facility] Comment on above: Result Comment: Canc elled via OM: Order cancelled - Patient discharged Performed By: #### L 9000.0810 #### [facility] [address] [place], [address] CREAT,SERUM Normal 0.70-1.20 [facility] Comment on above: Result Comment: Canc elled via OM: Order cancelled - Patient discharged Performed By: #### L 9000.0810 #### [facility] [address] [place], [address] eGFR Normal >60 [facility] Comment on above: Result Comment: Canc elled via OM: Order cancelled - Patient discharged Performed By: #### L 9000.0810 #### [facility] [address] [place], [address] GAP Normal 5-15 [facility] Comment on above: Result Comment: Canc elled via OM: Order cancelled - Patient discharged Performed By: #### L 9000.0810 #### [facility] [address] [place], [address] GLU Normal 70-99 [facility] Comment on above: Result Comment: Canc elled via OM: Order cancelled - Patient discharged Performed By: #### L 9000.0810 #### [facility] [address] [place], [address] Potassium Normal 3.3-5.1 [facility] Comment on above: Result Comment: Canc elled via OM: Order cancelled - Patient discharged Performed By: #### L 9000.0810 #### [facility] [address] [place], [address] Basic Metabolic Profile (BMP) Normal 133-145 [facility] Comment on above: Result Comment: Canc elled via OM: Order cancelled - Patient discharged Performed By: #### L 9000.0810 #### [facility] [address] [place], [address] CBC W/Diff, Automatedon 05-2 0-2024 Absolute Neut Normal 2.0-7.7 [facility] Comment on above: Result Comment: Canc elled via OM: Order cancelled - Patient discharged Performed By: #### L 9000.0810 #### [facility] [address] [place], [address] HCT Normal 37-47 [facility] Comment on above: Result Comment: Canc elled via OM: Order cancelled - Patient discharged Performed By: #### L 9000.0810 #### [facility] [address] [place], [address] HGB Normal 12.0-15.0 [facility] Comment on above: Result Comment: Canc elled via OM: Order cancelled - Patient discharged Performed By: #### L 9000.0810 #### [facility] [address] [place], [address] MCH Normal 27.0-32.0 [facility] Comment on above: Result Comment: Canc elled via OM: Order cancelled - Patient discharged Performed By: #### L 9000.0810 #### [facility] [address] [place], [address] MCHC Normal 32-36 [facility] Comment on above: Result Comment: Canc elled via OM: Order cancelled - Patient discharged Performed By: #### L 9000.0810 #### [facility] [address] [place], [address] MCV Normal 81-99 [facility] Comment on above: Result Comment: Canc elled via OM: Order cancelled - Patient discharged Performed By: #### L 9000.0810 #### [facility] [address] [place], [address] NEUT% Normal 47-70 [facility] Comment on above: Result Comment: Canc elled via OM: Order cancelled - Patient discharged Performed By: #### L 9000.0810 #### [facility] [address] [place], [address] PLT Normal 150-450 [facility] Comment on above: Result Comment: Canc elled via OM: Order cancelled - Patient discharged Performed By: #### L 9000.0810 #### [facility] [address] [place], [address] RBC Normal 4.2-5.4 [facility] Comment on above: Result Comment: Canc elled via OM: Order cancelled - Patient discharged Performed By: #### L 9000.0810 #### [facility] [address] [place], [address] RDW CV Normal 11.6-14.6 [facility] Comment on above: Result Comment: Canc elled via OM: Order cancelled - Patient discharged Performed By: #### L 9000.0810 #### [facility] [address] [place], [address] RDW SD Normal 35.1-43.9 [facility] Comment on above: Result Comment: Canc elled via OM: Order cancelled - Patient discharged Performed By: #### L 9000.0810 #### [facility] [address] [place], [address] WBC Normal 4.4-11.0 [facility] Comment on above: Result Comment: Canc elled via OM: Order cancelled - Patient discharged Performed By: #### L 9000.0810 #### [facility] [address] [place], [address] Basic Metabolic Profile (BMP )on 07-10-2024 BUN Normal 4-19 [facility] Comment on above: Result Comment: Canc elled via OM: Order cancelled - Patient discharged Performed By: #### L 500.2500, L100.0100 ####[facility] [address] [place], [address] BUN/CRE Normal 10-20 [facility] Comment on above: Result Comment: Canc elled via OM: Order cancelled - Patient discharged Performed By: #### L 500.2500, L100.0100 ####[facility] [address] [place], [address] Calcium Normal 7.6-11.0 [facility] Comment on above: Result Comment: Canc elled via OM: Order cancelled - Patient discharged Performed By: #### L 500.2500, L100.0100 ####[facility] [address] [place], [address] CL Normal 98-108 [facility] Comment on above: Result Comment: Canc elled via OM: Order cancelled - Patient discharged Performed By: #### L 500.2500, L100.0100 ####[facility] [address] [place], [address] CO2 Normal 21.0-32.0 [facility] Comment on above: Result Comment: Canc elled via OM: Order cancelled - Patient discharged Performed By: #### L 500.2500, L100.0100 ####[facility] [address] [place], [address] CREAT,SERUM Normal 0.70-1.20 [facility] Comment on above: Result Comment: Canc elled via OM: Order cancelled - Patient discharged Performed By: #### L 500.2500, L100.0100 ####[facility] [address] [place], [address] eGFR Normal >60 [facility] Comment on above: Result Comment: Canc elled via OM: Order cancelled - Patient discharged Performed By: #### L 500.2500, L100.0100 ####[facility] [address] [place], [address] GAP Normal 5-15 [facility] Comment on above: Result Comment: Canc elled via OM: Order cancelled - Patient discharged Performed By: #### L 500.2500, L100.0100 ####[facility] [address] [place], [address] GLU Normal 70-99 [facility] Comment on above: Result Comment: Canc elled via OM: Order cancelled - Patient discharged Performed By: #### L 500.2500, L100.0100 ####[facility] [address] [place], [address] Potassium Normal 3.3-5.1 [facility] Comment on above: Result Comment: Canc elled via OM: Order cancelled - Patient discharged Performed By: #### L 500.2500, L100.0100 ####[facility] [address] [place], [address] Basic Metabolic Profile (BMP) Normal 133-145 [facility] Comment on above: Result Comment: Canc elled via OM: Order cancelled - Patient discharged Performed By: #### L 500.2500, L100.0100 ####[facility] [address] [place], [address] CBC W/Diff, Automatedon 05- Absolute Neut Normal 2.0-7.7 [facility] Comment on above: Result Comment: Canc elled via OM: Order cancelled - Patient discharged Performed By: #### L 500.2500, L100.0100 ####[facility] [facility] [address] [place], [address] HCT Normal 37-47 [facility] Comment on above: Result Comment: Canc elled via OM: Order cancelled - Patient discharged Performed By: #### L 500.2500, L100.0100 ####[facility] [address] [place], [address] HGB Normal 12.0-15.0 [facility] Comment on above: Result Comment: Canc elled via OM: Order cancelled - Patient discharged Performed By: #### L 500.2500, L100.0100 ####[facility] [address] [place], [address] MCH Normal 27.0-32.0 [facility] Comment on above: Result Comment: Canc elled via OM: Order cancelled - Patient discharged Performed By: #### L 500.2500, L100.0100 ####[facility] [address] [place], [address] MCHC Normal 32-36 [facility] Comment on above: Result Comment: Canc elled via OM: Order cancelled - Patient discharged Performed By: #### L 500.2500, L100.0100 ####[facility] [address] [place], [address] MCV Normal 81-99 [facility] Comment on above: Result Comment: Canc elled via OM: Order cancelled - Patient discharged Performed By: #### L 500.2500, L100.0100 ####[facility] [address] [place], [address] NEUT% Normal 47-70 [facility] Comment on above: Result Comment: Canc elled via OM: Order cancelled - Patient discharged Performed By: #### L 500.2500, L100.0100 ####[facility] [address] [place], [address] PLT Normal 150-450 [facility] Comment on above: Result Comment: Canc elled via OM: Order cancelled - Patient discharged Performed By: #### L 500.2500, L100.0100 ####[facility] [address] [place], [address] RBC Normal 4.2-5.4 [facility] Comment on above: Result Comment: Canc elled via OM: Order cancelled - Patient discharged Performed By: #### L 500.2500, L100.0100 ####[facility] [address] [place], [address] RDW CV Normal 11.6-14.6 [facility] Comment on above: Result Comment: Canc elled via OM: Order cancelled - Patient discharged Performed By: #### L 500.2500, L100.0100 ####[facility] [address] [place], [address] RDW SD Normal 35.1-43.9 [facility] Comment on above: Result Comment: Canc elled via OM: Order cancelled - Patient discharged Performed By: #### L 500.2500, L100.0100 ####[facility] [address] [place], [address] WBC Normal 4.4-11.0 [facility] Comment on above: Result Comment: Canc elled via OM: Order cancelled - Patient discharged Performed By: #### L 500.2500, L100.0100 ####[facility] [address] [place], [address] Basic Metabolic Profile (BMP )on 07-09-2024 BUN Normal 4-19 [facility] Comment on above: Result Comment: Canc elled via OM: Order cancelled - Patient discharged Performed By: #### L 500.2500, L100.0100 ####[facility] [address] [place], [address] BUN/CRE Normal 10-20 [facility] Comment on above: Result Comment: Canc elled via OM: Order cancelled - Patient discharged Performed By: #### L 500.2500, L100.0100 ####[facility] [address] [place], [address] Calcium Normal 7.6-11.0 [facility] Comment on above: Result Comment: Canc elled via OM: Order cancelled - Patient discharged Performed By: #### L 500.2500, L100.0100 ####[facility] [address] [place], [address] CL Normal 98-108 [facility] Comment on above: Result Comment: Canc elled via OM: Order cancelled - Patient discharged Performed By: #### L 500.2500, L100.0100 ####[facility] [address] [place], [address] CO2 Normal 21.0-32.0 [facility] Comment on above: Result Comment: Canc elled via OM: Order cancelled - Patient discharged Performed By: #### L 500.2500, L100.0100 ####[facility] [address] [place], [address] CREAT,SERUM Normal 0.70-1.20 [facility] Comment on above: Result Comment: Canc elled via OM: Order cancelled - Patient discharged Performed By: #### L 500.2500, L100.0100 ####[facility] [address] [place], [address] eGFR Normal >60 [facility] Comment on above: Result Comment: Canc elled via OM: Order cancelled - Patient discharged Performed By: #### L 500.2500, L100.0100 ####[facility] [address] [place], [address] GAP Normal 5-15 [facility] Comment on above: Result Comment: Canc elled via OM: Order cancelled - Patient discharged Performed By: #### L 500.2500, L100.0100 ####[facility] [address] [place], [address] GLU Normal 70-99 [facility] Comment on above: Result Comment: Canc elled via OM: Order cancelled - Patient discharged Performed By: #### L 500.2500, L100.0100 ####[facility] [address] [place], [address] Potassium Normal 3.3-5.1 [facility] Comment on above: Result Comment: Canc elled via OM: Order cancelled - Patient discharged Performed By: #### L 500.2500, L100.0100 ####[facility] [address] [place], [address] Basic Metabolic Profile (BMP) Normal 133-145 [facility] Comment on above: Result Comment: Canc elled via OM: Order cancelled - Patient discharged Performed By: #### L 500.2500, L100.0100 ####[facility] [address] [place], [address] CBC W/Diff, Automatedon 05-1 Absolute Neut Normal 2.0-7.7 [facility] Comment on above: Result Comment: Canc elled via OM: Order cancelled - Patient discharged Performed By: #### L 500.2500, L100.0100 ####[facility] [address] [place], [address] HCT Normal 37-47 [facility] Comment on above: Result Comment: Canc elled via OM: Order cancelled - Patient discharged Performed By: #### L 500.2500, L100.0100 ####[facility] [address] [place], [address] HGB Normal 12.0-15.0 [facility] Comment on above: Result Comment: Canc elled via OM: Order cancelled - Patient discharged Performed By: #### L 500.2500, L100.0100 ####[facility] [address] [place], [address] MCH Normal 27.0-32.0 [facility] Comment on above: Result Comment: Canc elled via OM: Order cancelled - Patient discharged Performed By: #### L 500.2500, L100.0100 ####[facility] [address] [place], [address] MCHC Normal 32-36 [facility] Comment on above: Result Comment: Canc elled via OM: Order cancelled - Patient discharged Performed By: #### L 500.2500, L100.0100 ####[facility] [address] [place], [address] MCV Normal 81-99 [facility] Comment on above: Result Comment: Canc elled via OM: Order cancelled - Patient discharged Performed By: #### L 500.2500, L100.0100 ####[facility] [address] [place], [address] NEUT% Normal 47-70 [facility] Comment on above: Result Comment: Canc elled via OM: Order cancelled - Patient discharged Performed By: #### L 500.2500, L100.0100 ####[facility] [address] [place], [address] PLT Normal 150-450 [facility] Comment on above: Result Comment: Canc elled via OM: Order cancelled - Patient discharged Performed By: #### L 500.2500, L100.0100 ####[facility] [address] [place], [address] RBC Normal 4.2-5.4 [facility] Comment on above: Result Comment: Canc elled via OM: Order cancelled - Patient discharged Performed By: #### L 500.2500, L100.0100 ####[facility] [address] [place], [address] RDW CV Normal 11.6-14.6 [facility] Comment on above: Result Comment: Canc elled via OM: Order cancelled - Patient discharged Performed By: #### L 500.2500, L100.0100 ####[facility] [address] [place], [address] RDW SD Normal 35.1-43.9 [facility] Comment on above: Result Comment: Canc elled via OM: Order cancelled - Patient discharged Performed By: #### L 500.2500, L100.0100 ####[facility] [address] [place], [address] WBC Normal 4.4-11.0 [facility] Comment on above: Result Comment: Canc elled via OM: Order cancelled - Patient discharged Performed By: #### L 500.2500, L100.0100 ####[facility] [address] [place], [address] Absolute lymphocyte countOrd ered By: Cate Sargent on 07-08-2024 Lymphocytes Auto (Unsp spec) [#/Vol] 3.57 10*3/uL 0.83-4.51 [facility] Absolute neutrophil countOrd ered By: Cate Sargent on 07-08-2024 Neutrophils (Bld) [#/Vol] 4.5 10*3/uL 2.0-7.7 [facility] Anion gap in Serum or Plasma Ordered By: Cate Sargent on 07-08-2024 Anion gap [Moles/Vol] 9 mmol/L 5-15 [facility] Automated lymphocyte count a s percentage of total leukocytesOrdered By: Cate Sargent on 07-08-2024 Lymphocytes/100 WBC Auto (Unsp spec) 39.4 % - [facility] BUN/creatinine ratioOrdered By: Cate Sargent on 07-08-2024 Urea nitrogen/Creatinine [Mass ratio] 30.0 mg/mg High 10- [facility] Basic Metabolic Profile (BMP )on 07-08-2024 BUN/CRE 30.0 RATIO High 10-20 [facility] Comment on above: Performed By: #### L 501.6901, L500.4050 #### [facility] [address] [place], [address] Calcium [Mass/Vol] 8.4 mg/dL Normal 7.6-11.0 [facility] Comment on above: Performed By: #### L 501.6901, L500.4050 #### [facility] [address] [place], [address] Chloride [Moles/Vol] 112 mmol/L High 98-108 [facility] Comment on above: Performed By: #### L 501.6901, L500.4050 #### [facility] [address] [place], [address] CO2 [Moles/Vol] 17.6 mmol/L Low 21.0-32.0 [facility] Comment on above: Performed By: #### L 501.6901, L500.4050 #### [facility] [address] [place], [address] Creatinine [Mass/Vol] 0.66 mg/dL Low 0.70-1.20 [facility] Comment on above: Performed By: #### L 501.6901, L500.4050 #### [facility] [address] [place], [address] ECRCL 114.35 ml/min Normal 50-250 [facility] Comment on above: Performed By: #### L 501.6901, L500.4050 #### [facility] [address] [place], [address] GAP 9 Normal 5-15 [facility] Comment on above: Performed By: #### L 501.6901, L500.4050 #### [facility] [address] [place], [address] GFR/1.73 sq M.predicted among non-blacks MDRD (S/P/Bld) [Vol rate/Area] 100 mL/min/{1.73_m2} Normal >60 [facility] Comment on above: Result Comment: mL/m in/1.73m2 CKD-EPI Creatinine Equation (2020) Performed By: #### L 501.6901, L500.4050 #### [facility] [address] [place], [address] Glucose [Mass/Vol] 149 mg/dL High 70-99 [facility] Comment on above: Performed By: #### L 501.6901, L500.4050 #### [facility] [address] [place], [address] Potassium [Moles/Vol] 3.3 mmol/L Normal 3.3-5.1 [facility] Comment on above: Performed By: #### L 501.6901, L500.4050 #### [facility] [address] [place], [address] Sodium [Moles/Vol] 138 mmol/L Normal 133-145 [facility] Comment on above: Performed By: #### L 501.6901, L500.4050 #### [facility] [address] [place], [address] Urea nitrogen [Mass/Vol] 20 mg/dL High 4-19 [facility] Comment on above: Performed By: #### L 501.6901, L500.4050 #### [facility] [address] [place], [address] Basophil percentageOrdered B y: Cate Sargent on 07-08-2024 Basophils/100 WBC (Bld) 0.6 % 0-1 [facility] CBC W/Diff, Automatedon 06-22 PLT MORPH GIANT Normal [facility] Comment on above: Performed By: #### L 501.6901, L500.4050 #### [facility] [address] [place], [address] REACTIVE LYMPH 2+ Normal [facility] Comment on above: Performed By: #### L 501.6901, L500.4050 #### [facility] [address] [place], [address] Carbon dioxide, total [Moles /volume] in Central venous bloodOrdered By: Cate Sargent on 07-08-2024 CO2 [Moles/Vol] 17.6 mmol/L Low 21.0-32.0 [facility] Chloride assayOrdered By: Na liza Sargent on 07-08-2024 Chloride [Moles/Vol] 112 mmol/L High 98-108 [facility] Discharge Instructionon 06-22 Discharge Instruction [facility] Medical Records Department [address] [place] [address] Instructions for Home/Discharge Instructions 07/08/24 1010 MR#: [id number] Acct: [id number] Name: LIGIA RIVAS Rep #: [id number] : 1960 63 From: Cate Sargent MD PCP: Dr. Pancho Tran MD Status:ADM IN Discharge Instructions Diet Discharge Diet: Low fat / Low cholesterol and 1800 Calorie Control Diet DC O2, CPAP, BIPAP needs Home O2 Discharge instructions: No Dressing / Incision Discharge Activity: Return to Normal Activity Weight Bearing Status: Weight bearing as tolerated Dressing / Incision Call your doctor if you observe: Fever of 101 or Higher, Shortness of breath, Dizziness, Swelling in the ankles, Chest pain, Increased palpitations (irregular heartbeat) and Calf discomfort Follow Up Care Test Results: Test results from this visit will be discussed in further detail at your follow-up appointment, if applicable. Discharge Plan Admission Admit Date/Time: 07/07/24 15:08 Primary Reason for Your Visit: chino KLEIN Attending Provider: Cate Sargent Primary Care Provider: Pancho Tran Consulting Providers: Alejandra Weiner Instructions Patient Instructions: ED Diarrhea, Unknown Cause, ED Renal Insufficiency Discharge Orders/Prescriptions Prescriptions: Continued albuterol sulfate [Ventolin HFA] 90 mcg/actuation HFA aerosol inhaler 2 puff inhalation Q6H PRN (Reason: shortness of breath or wheezing) trazodone 150 mg tablet 75 mg PO QHS (DME) Dexcom G6 Transmitter Device See Rx Instructions .ROUTE .MEDSUPPLY Qty: 1 Patient Comments: USE TRANSMITTER NEEDED Rx Instructions: As directed glipizide 10 mg tablet extended release 24hr 10 mg PO BID ropinirole 1 mg tablet 1 mg PO QHS losartan-hydrochloroth iazide 100-12.5 mg tablet 1 tab PO DAILY cholecalciferol (vitamin D3) 25 mcg (1,000 unit) capsule 25 mcg PO QDAY (DME) OneTouch Ultra Test Strip See Rx Instructions .Route Qty: 100 5RF Rx Instructions: BID duloxetine 60 mg capsule,delayed release(DR/EC) 60 mg PO DAILY Qty: 90 0RF potassium chloride 20 mEq tablet,ER particles/crystals 20 meq PO QDAY Qty: 90 0RF insulin glargine [Lantus Solostar U-100 Insulin] 100 unit/mL (3 mL) insulin pen 14 unit subcut DAILY mecobalamin (vitamin B12) 500 mcg tablet,chewable 500 mcg PO DAILY calcium carbonate [Antacid (calcium carbonate)] PO insulin lispro [Humalog KwikPen Insulin] 100 unit/mL insulin pen 5 unit subcut TID Qty: 15 0RF Ozempic 2 mg/dose (8 mg/3 mL) pen injector 2 mg subcut MILLS Qty: 9 1RF methimazole 10 mg tablet 20 mg PO DAILY Qty: 60 3RF Discontinued Jardiance 25 mg tablet 25 mg PO QDAY Qty: 30 5RF Referrals / Follow Up: Pancho Tran MD [Primary Care Provider] - Within 1 Week Disposition Disposition (needs filled in before D/C Order can be placed): Home, Self Care 07/08/24 1013 Cate Sargent MD CC: Dr. Alejandra Weiner MD; Dr. Pancho Tran MD Signed Normal [facility] Eosinophil percentageOrdered By: Cate Sargent on 07-08-2024 Eosinophils/100 WBC (Bld) 1.9 % 0-5 [facility] Erythrocyte distribution wid th ratioOrdered By: [facility] on 07-08-2024 Erythrocyte distribution width (RBC) [Ratio] 14.1 % 11.6-14.6 [facility] Erythrocyte distribution wid th standard deviationOrdered By: [facility] on 07-08-2024 Erythrocyte distribution width (RBC) [Ratio] 42.8 fl 35.1-43.9 [facility] Glomerular filtration rate ( GFR) estimation/1.73 sq m using serum, plasma, or whole bOrdered By: [facility] [place] on 07-08-2024 GFR/1.73 sq M.predicted among non-blacks MDRD (S/P/Bld) [Vol rate/Area] 100 mL/min/{1.73_m2} >60 [facility] Comment on above: mL/min/1.73m2 CKD-EP I Creatinine Equation (2020) Hematocrit Auto (Bld) [Volum e fraction]Ordered By: [facility] 07-08-2024 Hematocrit (Bld) [Volume fraction] 39.8 % 37-47 [facility] Hemoglobin measurementOrdere d By: [facility] 07-08-2024 Hemoglobin (Bld) [Mass/Vol] 13.7 g/dL 12.0-15.0 [facility] Immature granulocytes/100 WB C Auto (Bld)Ordered By: [facility] 07-08-2024 Immature granulocytes/100 WBC (Bld) 0.300 % 0.0-0.9 [facility] Comment on above: IG% - Immature Granu locytes (promyelocytes, myelocytes and metamyelocytes) > 1% indicates that a LEFT SHIFT is Present. MCV (mean corpuscular volume ) determinationOrdered By: Cate [facility] on 07-08-2024 MCV (RBC) [Entitic vol] 83.1 fL 81-99 [facility] Mean corpuscular hemoglobin (MCH) determinationOrdered By: [facility] 07-08-2024 MCH (RBC) [Entitic mass] 28.6 pg 27.0-32.0 [facility] Mean corpuscular hemoglobin concentration (MCHC) determinationOrdered By: [facility] 07-08-2024 MCHC (RBC) [Mass/Vol] 34.4 g/dL 32-36 [facility] Mean platelet volume determi nationOrdered By: Cate Sargent on 07-08-2024 Platelet mean volume (Bld) [Entitic vol] 10.8 fL 6.2-12.0 [facility] Monocyte percentageOrdered B y: Cate Sargent on 07-08-2024 Monocytes/100 WBC (Bld) 8.0 % 0-10 [facility] Neutrophil percentageOrdered By: Cate Sargent on 07-08-2024 Neutrophils/100 WBC (Bld) 49.8 % 47-70 [facility] Nucleated red blood cell per centageOrdered By: Cate Sargent on 07-08-2024 Nucleated RBC/100 WBC (Bld) [Ratio] 0 % 0-5 [facility] Platelet countOrdered By: Liza Sargent on 07-08-2024 Platelets (Bld) [#/Vol] 222 10*3/uL 150-450 [facility] Platelet morphologyOrdered B y: Cate Sargent on 07-08-2024 Platelet morphology finding Nom (Bld) GIANT [facility] Potassium measurement (mass/ volume)Ordered By: Cate Sargent on 07-08-2024 Potassium (Unsp spec) [Mass/Vol] 3.3 mmol/L 3.3-5.1 [facility] RBC Auto (Bld) [#/Vol]Ordere d By: Cate Sargent on 07-08-2024 RBC (Bld) [#/Vol] 4.79 10*6/uL 4.2-5.4 [facility] Serum creatinine measurement (mass/volume)Ordered By: Cate Sargent on 07-08-2024 Creatinine [Mass/Vol] 0.66 mg/dL Low 0.70-1.20 [facility] Serum glucose measurement (m ass/volume)Ordered By: Cate Sargent on 07-08-2024 Glucose [Mass/Vol] 149 mg/dL High 70-99 [facility] Serum or plasma calcium ricky urement (mass/volume)Ordered By: Cate Sargent on 07-08-2024 Calcium [Mass/Vol] 8.4 mg/dL 7.6-11.0 [facility] Serum or plasma urea nitroge n measurement (mass/volume)Ordered By: Catedevi Sargent on 07-08-2024 Urea nitrogen [Mass/Vol] 20 mg/dL High 4-19 [facility] Sodium levelOrdered By: Catedevi Sargent on 07-08-2024 Sodium [Moles/Vol] 138 mmol/L 133-145 [facility] White blood cell (WBC) count Ordered By: Catedevi Sargent on 07-08-2024 WBC (Bld) [#/Vol] 9.1 10*3/uL 4.4-11.0 [facility] Basic Metabolic Profile (BMP )on 07-07-2024 BUN/CRE 45.1 RATIO High 10-20 [facility] Comment on above: Performed By: #### L 100.0100 #### [facility] [address] [place], [address] Calcium [Mass/Vol] 8.5 mg/dL Normal 7.6-11.0 [facility] Comment on above: Performed By: #### L 100.0100 #### [facility] [address] [place], [address] Chloride [Moles/Vol] 106 mmol/L Normal 98-108 [facility] Comment on above: Performed By: #### L 100.0100 #### [facility] [address] [place], [address] CO2 [Moles/Vol] 13.6 mmol/L Low 21.0-32.0 [facility] Comment on above: Performed By: #### L 100.0100 #### [facility] [address] [place], [address] Creatinine [Mass/Vol] 1.00 mg/dL Normal 0.70-1.20 [facility] Comment on above: Performed By: #### L 100.0100 #### [facility] [address] [place], [address] ECRCL 75.47 ml/min Normal 50-250 [facility] Comment on above: Performed By: #### L 100.0100 #### [facility] [address] [place], [address] GAP 13 Normal 5-15 [facility] Comment on above: Performed By: #### L 100.0100 #### [facility] [address] [place], [address] GFR/1.73 sq M.predicted among non-blacks MDRD (S/P/Bld) [Vol rate/Area] 64 mL/min/{1.73_m2} Normal >60 [facility] Comment on above: Result Comment: mL/m in/1.73m2 CKD-EPI Creatinine Equation (2020) Performed By: #### L 100.0100 #### [facility] [address] [place], [address] Glucose [Mass/Vol] 154 mg/dL High 70-99 [facility] Comment on above: Performed By: #### L 100.0100 #### [facility] [address] [place], [address] Potassium [Moles/Vol] 3.1 mmol/L Low 3.3-5.1 [facility] Comment on above: Performed By: #### L 100.0100 #### [facility] [address] [place], [address] Sodium [Moles/Vol] 132 mmol/L Low 133-145 [facility] Comment on above: Performed By: #### L 100.0100 #### [facility] [address] [place], [address] Urea nitrogen [Mass/Vol] 45 mg/dL High 4-19 [facility] Comment on above: Performed By: #### L 100.0100 #### [facility] [address] [place], [address] Bedside Glucoseon 07-07-2024 FINGERSTICK GLU 174 mg/dL High 74-106 [facility] Comment on above: Result Comment: SHAMA GEMENT OF PATIENT CARE PER NURSING PROTOCOL Performed By: #### L 501.080 ####[facility] [address] [facility] [address] FINGERSTICK GLU 172 mg/dL High [facility]106 [facility] Comment on above: Result Comment: SHAMA GEMENT OF PATIENT CARE PER NURSING PROTOCOL Performed By: #### L 501.6901, L500.4050 #### [facility] [address] [facility] [address] FINGERSTICK GLU 196 mg/dL High [facility] Comment on above: Result Comment: SHAMA GEMENT OF PATIENT CARE PER NURSING PROTOCOL Performed By: #### L 501.080 ####[facility] [address] [facility] [address] FINGERSTICK GLU 176 mg/dL High [facility]106 [facility] Comment on above: Result Comment: SHAMA GEMENT OF PATIENT CARE PER NURSING PROTOCOL Performed By: #### L 501.080 ####[facility] [address] [place], [address] FINGERSTICK GLU 163 mg/dL High [address] [place] [address] Comment on above: Result Comment: SHAMA GEMENT OF PATIENT CARE PER NURSING PROTOCOL Performed By: #### L 100.0100 #### [facility] [address] [facility] [address] Bilirubin directOrdered By: Alejandra Weiner on 07-07-2024 Bilirubin.direct [Mass/Vol] 0.27 mg/dL 0.00-0.30 [facility] Bilirubin, totalOrdered By: Alejandra Weiner on 07-07-2024 Bilirubin [Mass/Vol] 0.69 mg/dL 0.00-1.30 [facility] CBC W/Diff, Automatedon 06-22 Absolute Lymph 4.17 X10 3/uL Normal 0.83-4.51 [facility] Comment on above: Performed By: #### L 500.3400, L501.2300, L501.5200, L300.3900, L100.0100, L500.2500, L500.4050, L501.9520 ####[facility] [address] [place], [address] Absolute Neut 4.3 X10 3/uL Normal 2.0-7.7 [facility] Comment on above: Performed By: #### L 500.3400, L501.2300, L501.5200, L300.3900, L100.0100, L500.2500, L500.4050, L501.9520 ####[facility] [address] [place], [address] Basophils/100 WBC (Bld) 0.3 % Normal 0-1 [facility] Comment on above: Performed By: #### L 500.3400, L501.2300, L501.5200, L300.3900, L100.0100, L500.2500, L500.4050, L501.9520 ####[facility] [address] [place], [address] Eosinophils/100 WBC (Bld) 1.7 % Normal 0-5 [facility] Comment on above: Performed By: #### L 500.3400, L501.2300, L501.5200, L300.3900, L100.0100, L500.2500, L500.4050, L501.9520 ####[facility] [address] [place], [address] Erythrocyte distribution width (RBC) [Ratio] 14.0 % Normal 11.6-14.6 [facility] Comment on above: Performed By: #### L 500.3400, L501.2300, L501.5200, L300.3900, L100.0100, L500.2500, L500.4050, L501.9520 ####[facility] [address] [place], [address] Hematocrit (Bld) [Volume fraction] 47.3 % High 37-47 [facility] Comment on above: Performed By: #### L 500.3400, L501.2300, L501.5200, L300.3900, L100.0100, L500.2500, L500.4050, L501.9520 ####[facility] [address] [place], [address] Hemoglobin (Bld) [Mass/Vol] 16.1 g/dL High 12.0-15.0 [facility] Comment on above: Performed By: #### L 500.3400, L501.2300, L501.5200, L300.3900, L100.0100, L500.2500, L500.4050, L501.9520 ####[facility] [address] [place], [address] IG% 0.300 Normal 0.0-0.9 [facility] Comment on above: Result Comment: IG% - Immature Granulocytes (promyelocytes, myelocytes and metamyelocytes) > 1% indicates that a LEFT SHIFT is Present. Performed By: #### L 500.3400, L501.2300, L501.5200, L300.3900, L100.0100, L500.2500, L500.4050, L501.9520 ####[facility] [address] [place], [address] Lymphocytes/100 WBC (Bld) 43.3 % High 19-41 [facility] Comment on above: Performed By: #### L 500.3400, L501.2300, L501.5200, L300.3900, L100.0100, L500.2500, L500.4050, L501.9520 ####[facility] [address] [place], [address] MCH (RBC) [Entitic mass] 28.4 pg Normal 27.0-32.0 [facility] Comment on above: Performed By: #### L 500.3400, L501.2300, L501.5200, L300.3900, L100.0100, L500.2500, L500.4050, L501.9520 ####[facility] [address] [place], [address] MCHC (RBC) [Mass/Vol] 34.0 g/dL Normal 32-36 [facility] Comment on above: Performed By: #### L 500.3400, L501.2300, L501.5200, L300.3900, L100.0100, L500.2500, L500.4050, L501.9520 ####[facility] [address] [place], [address] MCV (RBC) [Entitic vol] 83.4 fL Normal 81-99 [facility] Comment on above: Performed By: #### L 500.3400, L501.2300, L501.5200, L300.3900, L100.0100, L500.2500, L500.4050, L501.9520 ####[facility] [address] [place], [address] Monocytes/100 WBC (Bld) 9.6 % Normal 0-10 [facility] Comment on above: Performed By: #### L 500.3400, L501.2300, L501.5200, L300.3900, L100.0100, L500.2500, L500.4050, L501.9520 ####[facility] [address] [place], [address] Neutrophils/100 WBC (Bld) 44.8 % Low 47-70 [facility] Comment on above: Performed By: #### L 500.3400, L501.2300, L501.5200, L300.3900, L100.0100, L500.2500, L500.4050, L501.9520 ####[facility] [address] [place], [address] Nucleated RBC (Bld) [#/Vol] 0 10*3/uL Normal 0-5 [facility] Comment on above: Performed By: #### L 500.3400, L501.2300, L501.5200, L300.3900, L100.0100, L500.2500, L500.4050, L501.9520 ####[facility] [address] [place], [address] Platelet mean volume (Bld) [Entitic vol] 11.1 fL Normal 6.2-12.0 [facility] Comment on above: Performed By: #### L 500.3400, L501.2300, L501.5200, L300.3900, L100.0100, L500.2500, L500.4050, L501.9520 ####[facility] [address] [place], [address] Platelets (Bld) [#/Vol] 289 10*3/uL Normal 150-450 [facility] Comment on above: Performed By: #### L 500.3400, L501.2300, L501.5200, L300.3900, L100.0100, L500.2500, L500.4050, L501.9520 ####[facility] [address] [place], [address] RBC (Bld) [#/Vol] 5.67 10*6/uL High 4.2-5.4 [facility] Comment on above: Performed By: #### L 500.3400, L501.2300, L501.5200, L300.3900, L100.0100, L500.2500, L500.4050, L501.9520 ####[facility] [address] [place], [address] RDW SD 42.4 fl Normal 35.1-43.9 [facility] Comment on above: Performed By: #### L 500.3400, L501.2300, L501.5200, L300.3900, L100.0100, L500.2500, L500.4050, L501.9520 ####[facility] [address] [place], [address] WBC (Bld) [#/Vol] 9.6 10*3/uL Normal 4.4-11.0 [facility] Comment on above: Performed By: #### L 500.3400, L501.2300, L501.5200, L300.3900, L100.0100, L500.2500, L500.4050, L501.9520 ####[facility] [address] [facility] [place], [address] Comprehensive Metabolic Prof ilon 07-07-2024 Albumin/Globulin [Mass ratio] 1.1 {ratio} Normal 0.9-2.4 [facility] Comment on above: Performed By: #### L 100.0100 #### [facility] [address] [place], [address] ENTERIC PATHOGEN PANEL STOOL on 07-07-2024 EP PANEL RESULTS CALLED TO TRACY 07/07/242023 Beatriz Upton. REPORT READ BACK BY SAME. Normal Reference Range = Not Detected Nucleic acid amplification test method Rotavirus A detected. This infection is typically seen in the very young or the very old with other underlying medical conditions. This is an amplified DNA test which makes it both specific and sensitive. Copy of report sent to Infection Control Printer [id number] 07/08/24 0707 DEVON. CAMPYLOBACTER Not Detected Norovirus Not Detected Rotavirus A Rotavirus Detected A Salmonella Not Detected Shiga Toxin Not Detected Shigella sp. Not Detected VIBRIO Not Detected Yersinia Not Detected Rotavirus * This is an amended result. * A prior result that was reported as final has been changed. 07/08/24 [address] [facility] Comment on above: Performed By: #### M 100.637 ####[facility] [id number], [address] Free T3on 07-07-2024 Free T3 [Mass/Vol] 4.1 pg/mL High 2.18-3.98 [facility] Comment on above: Performed By: #### L 501.6901, L500.4050 #### [facility] [address] [place], [place], [address] [facility] deOrdered By: Cate Sargent on 07-07-2024 Glucose [Mass/Vol] 174 mg/dL High 74-106 [facility] Comment on above: MANAGEMENT OF PATIEN T CARE PER NURSING PROTOCOL H AND P Exam - Hospitaliston 07-07-2024 H&P Exam - Hospitalist [facility] Medical Records Department [address] [place] [address] H P Exam - Hospitalist 07/07/24 0007 MR#: [id number] Acct: [id number] Name: LIGIA RIVAS Rep #: [id number] : 1960 63 From: Alejandra Weiner MD PCP: Dr. Pancho Tran MD Status:ADM YECENIA Location: [place] [address] HPI - General General Date of Admission: 07/06/24 Date of Service: 07/07/24 Chief Complaint: metabolic acidosis HPI Narrative LIGIA RIVAS, is a 63 F with past medical history of type 2 diabetes on Ozempic, Jardiance, Lantus and hyperthyroidism on methimazole, obesity, hypertension on lisinopril with hydrochlorothiazide Jardiance related recurrent vaginal yeast infection who was referred to the ED for concerns regarding metabolic acidosis in the setting of ongoing diarrhea for the last week with associated nausea, decreased p.o. intake. She has stopped taking most of her medications for the last one week due to her symptoms. Per the patient appetite has been steadily decreasing but over the last week she has been having more diarrhea or vomiting anorexia. Her grandchildren are also sick recently. Overall her nutritional intake is on optimum as she is taking care of 3 grandchildren is not able to follow-up on low-carb diet. At the time of evaluation in the ED she was noted to have a blood gas of pH 7.2 with PCO2 of 35 and PO2 of 33, bicarb 16.4, urine was negative for ketones however was BUN was 62 and creatinine was elevated to 1.5. WBC 11.2, hemoglobin 17.9, platelet 325, sodium 132, potassium 3.4, anion gap of 17, her BUN dylan from 56-62 during her ED evaluation and creatinine was 1.5 despite fluid therapy. Last A1c checked on 07/06 was 7.1 calcium 9.3, alkaline phosphatase 133, total protein 8.8, albumin 4.5. Urine analysis negative for infection urine ketones negative. POC glucose was 134 PFSH Medical History Anxiety and depression Health care maintenance Wears contact lenses Depression Thyroid disease Insulin dependent diabetes mellitus Ambulates with cane Arthritis PONV (postoperative nausea and vomiting) High cholesterol Dietary restriction Non-smoker CPAP (continuous positive airway pressure) dependence Sleep apnea History of stress test Right rotator cuff tear Osteoarthritis of left hip Left hip pain Impingement of right shoulder Right shoulder pain Diabetic neuropathy Mild depression Hyperlipidemia GERD (gastroesophageal reflux disease) Muscle cramps Bilateral lower extremity edema Endometrial thickening on ultrasound Patellar fracture HTN (hypertension) Type 2 diabetes mellitus GITA (obstructive sleep apnea) Home Medications ???Medication ???Instructions ???Recorded ???Last Taken ???Type albuterol sulfate 90 mcg/actuation 2 puff inhalation Q6H PRN 07/03/24 History aerosol inhaler (Ventolin HFA) shortness of breath or wheezing blood-glucose transmitter (Dexcom #1 ea 01/04/23 Unknown History G6 Transmitter device) trazodone 150 mg tablet 75 mg PO QHS 01/04/23 07/03/24 His tory glipizide 10 mg tablet, extended 10 mg PO BID 08/05/23 07/03/24 His tory release 24 hr ropinirole 1 mg tablet 1 mg PO QHS 08/05/23 07/05/24 Hist ory losartan 100 1 tab PO DAILY 10/07/23 07/03/24 H istory mg-hydrochlorothiazide 12.5 mg tablet insulin lispro 100 unit/mL 5 unit (0.05 mL) subcut TID #15 mL 12/24/23 Unknown Rx subcutaneous pen (Humalog KwikPen (U-100) Insulin) semaglutide 2 mg/dose (8 mg/3 mL) 2 mg (0.75 mL) subcut MILLS #9 mL Unknown Rx subcutaneous pen injector (Ozempic) empagliflozin 25 mg tablet 25 mg PO QDAY #30 tabs 01/10/24 Rx (Jardiance) Held on 07/06/24. Instructions: Ordered methimazole 10 mg tablet 20 mg (2 x 10 mg) PO DAILY #60 tab s 03/14/24 07/03/24 Rx blood sugar diagnostic (OneTouch #100 ea 04/13/24 Unknown Rx Ultra Test strips) cholecalciferol (vitamin D3) 25 25 mcg PO QDAY 04/13/24 07/03/24 H istory mcg (1,000 unit) capsule duloxetine 60 mg capsule,delayed 60 mg PO DAILY #90 caps 04/13/24 0 07/03/24 Rx release potassium chloride 20 mEq 20 meq PO QDAY #90 tabs 04/13/24 0 07/03/24 Rx tablet,extended release(part/cryst) insulin glargine 100 unit/mL (3 14 unit subcut DAILY 04/20/24 Unkn own History mL) subcutaneous pen (Lantus Solostar U-100 Insulin) calcium carbonate PO 07/06/24 Unknown History mecobalamin (vitamin B12) 500 mcg 500 mcg PO DAILY 07/06/24 5 History chewable tablet Allergy/AdvReac Type Severity Reaction Status Date / Time No Known Allergies Allergy Verified 07/06/24 17:47 Family History Father Diabetes Hypertension COPD (chronic obstructive pulmonary disease) Heart dise (more content not included)... Normal [facility] normalized rat io (INR) calculationOrdered By: Alejandra Weiner on 07-07-2024 INR Coag (Bld) [Relative time] 1.1 {INR} [facility] - Chemistry and C hemistry - challengeOrdered By: Alejandra Weiner on 07-07-2024 AST [Catalytic activity/Vol] 23 U/L <32 [facility] Liver Profileon 07-07-2024 Albumin [Mass/Vol] 3.8 g/dL Normal 3.4-4.8 [facility] Comment on above: Performed By: #### L 100.0100 #### [facility] [address] [place], [address] ALK PHOS 112 U/L High 35-104 [facility] Comment on above: Performed By: #### L 100.0100 #### [facility] [address] [place], [address] ALT [Catalytic activity/Vol] 26 U/L Normal <=34 [facility] Comment on above: Performed By: #### L 100.0100 #### [facility] [address] [place], [address] AST [Catalytic activity/Vol] 23 U/L Normal <=31 [facility] Comment on above: Performed By: #### L 100.0100 #### [facility] [address] [place], [address] Bilirubin [Mass/Vol] 0.69 mg/dL Normal 0.00-1.30 [facility] Comment on above: Performed By: #### L 100.0100 #### [facility] [address] [place], [address] Bilirubin.direct [Mass/Vol] 0.27 mg/dL Normal 0.00-0.30 [facility] Comment on above: Performed By: #### L 100.0100 #### [facility] [address] [place], [address] Globulin (S) [Mass/Vol] 3.5 g/dL Normal 2.2-4.2 [facility] Comment on above: Performed By: #### L 100.0100 #### [facility] [address] [place], [address] T PROT 7.3 g/dL Normal 5.9-8.4 [facility] Comment on above: Performed By: #### L 100.0100 #### [facility] [address] [place], [address] Magnesiumon 07-07-2024 Magnesium [Mass/Vol] 2.2 mg/dL Normal 1.5-2.2 [facility] Comment on above: Performed By: #### L 100.0100 #### [facility] [address] [place], [address] Magnesium measurement (mass/ volume)Ordered By: Alejandra Weiner on 07-07-2024 Magnesium (Unsp spec) [Mass/Vol] 2.2 mg/dL 1.5-2.2 [facility] Phosphoruson 07-07-2024 Phosphate [Mass/Vol] 3.4 mg/dL Normal 2.7-4.5 [facility] Comment on above: Performed By: #### L 100.0100 #### [facility] [address] [place], [address] Prothrombin Time w/INRon INR Coag (PPP) [Relative time] 1.1 {INR} Normal [facility] Comment on above: Performed By: #### L 500.3400, L501.2300, L501.5200, L300.3900, L100.0100, L500.2500, L500.4050, L501.9520 ####[facility] [address] [place], [address] PT Coag (PPP) [Time] 14.4 s Normal 11.7-14.9 [facility] Comment on above: Performed By: #### L 500.3400, L501.2300, L501.5200, L300.3900, L100.0100, L500.2500, L500.4050, L501.9520 ####[facility] [address] [place], [address] Prothrombin timeOrdered By: Alejandra Weiner on 07-07-2024 PT Coag (PPP) [Time] 14.4 s 11.7-14.9 [facility] Serum globulin measurementOr dered By: Alejandra Weiner on 07-07-2024 Globulin (S) [Mass/Vol] 3.5 g/dL 2.2-4.2 [facility] Serum or plasma alanine webber otransferase (ALT) measurementOrdered By: Alejandra Weiner on 07-07-2024 ALT [Catalytic activity/Vol] 26 U/L <35 [facility] Serum or plasma albumin ricky urement (mass/volume)Ordered By: Alejandra Weiner on 07-07-2024 Albumin [Mass/Vol] 3.8 g/dL 3.4-4.8 [facility] Serum or plasma albumin/glob ulin mass ratioOrdered By: Alejandra Weiner on 07-07-2024 Albumin/Globulin [Mass ratio] 1.1 {ratio} 0.9-2.4 [facility] Serum or plasma alkaline usman sphatase measurementOrdered By: Alejandra Weiner on 07-07-2024 ALP [Catalytic activity/Vol] 112 U/L High 35-104 [facility] TSH DL <= 0.005 mIU/L QnOrde red By: Alejandra Weiner on 07-07-2024 TSH Qn 0.617 uIU/mL 0.300-4.200 [facility] Thyroid Stim Hormone (TSH)on 07-07-2024 TSH 0.617 uIU/mL Normal 0.300-4.200 [facility] Comment on above: Performed By: #### L 100.0100 #### [facility] [address] [place], [place], [address] Total proteinOrdered By: Real Weiner on 07-07-2024 Protein [Mass/Vol] 7.3 g/dL 5.9-8.4 [facility] 12 Lead EKGon 07-06-2024 12 Lead EKG [facility] [address] [place] [address] 12 Lead EKG 07/06/242044 MR#: [id number] Acct: [id number] Name: LIGIA RIVAS Rep #: [id number] : 1960 63 From: Tim Carballo MD Attending Dr: Dr. Cate Sargent MD Status: DI S IN Ordering Dr: Mahendra Devine MD Date: 07/06/24 Location: [facility] Sex: F UTD Admitted: 07/07/24 Test Reason : Blood Pressure : */* mmHG Vent. Rate : 103 BPM Atrial Rate : 103 BPM P-R Int : 154 ms QRS Dur : 88 ms QT Int : 358 ms P-R-T Axes : 38 -1 138 degrees QTcB Int : 468 ms Sinus tachycardia T wave abnormality, consider lateral ischemia Abnormal ECG Confirmed by ELIZABETH KESSLER, TIM ([id number]), material expeditor RAQUEL NEELY ([id number]) on 07/10/2024 8:42:59 AM Referred By: Confirmed By: TIM CARBALLO MD 07/10/24 0843 Date Tim Carballo MD CC: Dr. Mahendra Devine MD; Dr. Pancho Tran MD; Dr. Cate Sargent MD Signed Normal [facility] Abdomen/Pelvis W IV Cont ONL Yon 07-06-2024 Abdomen/Pelvis W IV Cont ONLY [facility] Imaging Services [address] [place] [address] Abdomen/Pelvis W IV Cont ONLY MR#: [id number] Acct: [id number] Name: LIGIA RIVAS Rep #: [id number] : 1960 F 63 From: Leonardo Nava MD PCP: Dr. Pancho Tran MD Status: REG Study: Abdomen/Pelvis W IV Cont ONLY Date of Exam: Exam# [id number] Ordering Dr: Mahendra Devine MD PROCEDURE: ABDOMEN/PELVIS W IV CONT ONLY 07/06/2024 REASON FOR EXAM: DIARRHEA TECHNIQUE: Abdomen and pelvis CT with intravenous contrast. Coronal and Sagittal reconstruction series were provided. PATIENT PREPARATION: Per protocol ORAL CONTRAST TYPE: None. CONTRAST: 100 mL Isovue 300 intravenous contrast One or more dose reduction techniques were used (e.g., Automated exposure control, adjustment of the mA and/or kV according to patient size, use of iterative reconstruction technique. RADIATION DOSE SUMMARY: CTDlvol: 23.2 mGy DLP: 1305 mGycm COMPARISON: None FINDINGS: Lung bases: Areas of linear scarring or atelectasis at the lung bases. No pleural effusion. Multivessel coronary calcifications. Liver: Hypodensity along the gallbladder fossa may represent focal fat. Gallbladder: Surgically absent. Spleen: Unremarkable. Pancreas: Normal size without evidence of mass surrounding inflammation or ductal dilation. Adrenals: Unremarkable. Kidneys: No hydronephrosis or urinary stone. Bladder: Unremarkable. Reproductive Organs: Hypodensity measuring 1.1 cm in the right aspect of the uterus may represent a leiomyoma. Bowel: No obstruction or inflammation. Fluid contents throughout the colon. Normal appendix. Colonic diverticulosis. Small duodenal diverticulum near the pancreatic head. Lymph nodes: No significant lymphadenopathy. Vasculature: Mild aortic atherosclerosis. Bones: Degenerative changes of the spine. Left hip arthroplasty. Transitional lumbosacral anatomy. CT/Abdomen/Pelvis W IV Cont ONLY IMPRESSION: 1. Fluid contents throughout the colon, in keeping with the reported history of diarrheal illness. No significant inflammatory changes of the bowel, nor evidence of obstruction. 2. Colonic diverticulosis. 3. Multivessel coronary calcifications. Reading Location: [facility] CC: Dr. Mahendra Devine MD; Dr. Pancho Tran MD Picker Tender: Signed Normal [facility] Absolute lymphocyte countOrd ered By: Mahendra Devine on 07-06-2024 Lymphocytes Auto (Unsp spec) [#/Vol] 3.61 10*3/uL 0.83-4.51 [facility] Absolute lymphocyte countOrd ered By: Manan Escobar on 07-06-2024 Lymphocytes Auto (Unsp spec) [#/Vol] 2.88 10*3/uL 0.83-4.51 [facility] Absolute neutrophil countOrd ered By: Mahendra Devine on 07-06-2024 Neutrophils (Bld) [#/Vol] 6.3 10*3/uL 2.0-7.7 [facility] Absolute neutrophil countOrd ered By: Manan Escobar on 07-06-2024 Neutrophils (Bld) [#/Vol] 6.1 10*3/uL 2.0-7.7 [facility] Anion gap in Serum or Plasma Ordered By: Mahendra Devine on 07-06-2024 Anion gap [Moles/Vol] 17 mmol/L [facility] Anion gap in Serum or Plasma Ordered By: Caitlin Tilley on 07-06-2024 Anion gap [Moles/Vol] 19 mmol/L [facility] Automated lymphocyte count a s percentage of total leukocytesOrdered By: Mahendra Devine on 07-06-2024 Lymphocytes/100 WBC Auto (Unsp spec) 32.3 % [facility] Automated lymphocyte count a s percentage of total leukocytesOrdered By: Manan Escobar on 07-06-2024 Lymphocytes/100 WBC Auto (Unsp spec) 28.7 % [facility] BUN/creatinine ratioOrdered By: Mahendra Devine on 07-06-2024 Urea nitrogen/Creatinine [Mass ratio] 40.9 mg/mg High 12-11 [facility] BUN/creatinine ratioOrdered By: Caitlin Tilley on 07-06-2024 Urea nitrogen/Creatinine [Mass ratio] 40.0 mg/mg [facility] 12-11 [facility] Basophil percentageOrdered B y: Mahendra Devine on 07-06-2024 Basophils/100 WBC (Bld) 0.4 % 0-1 [facility] Basophil percentageOrdered B y: Manan Escobar on 07-06-2024 Basophils/100 WBC (Bld) 0.5 % 0-1 [facility] Bedside Glucoseon 07-06-2024 FINGERSTICK GLU 134 mg/dL High 74-106 [facility] Comment on above: Result Comment: SHAMA GEMENT OF PATIENT CARE PER NURSING PROTOCOL Performed By: #### L 9000.0810 #### [facility] [address] [place], [address] FINGERSTICK GLU 156 mg/dL High 74-106 [facility] Comment on above: Result Comment: SHAMA GEMENT OF PATIENT CARE PER NURSING PROTOCOL Performed By: #### L 501.6901, L500.4050 #### [facility] [address] [place], [address] FINGERSTICK GLU 189 mg/dL High 74-106 [facility] Comment on above: Result Comment: SHAMA GEMENT OF PATIENT CARE PER NURSING PROTOCOL Performed By: #### L 501.6901, L500.4050 #### [facility] [address] [place], [address] Beta-Hydroxbytyrateon 2024 BETA-HYDROXYBUT 0.3 mmol/L Normal 0.0-0.3 [facility] Comment on above: Performed By: #### L 501.6901, L500.4050 #### [facility] [address] [place], [address] Beta-hydroxybutyrateOrdered By: Mahendra Devine on 07-06-2024 Beta hydroxybutyrate [Mass/Vol] 0.3 mmol/L 0.0-0.3 [facility] Bilirubin Test strip Ql (U)O rdered By: Mahendra Devine on 07-06-2024 Bilirubin Ql (U) 1 mg/dL High Negative [facility] Comment on above: COLOR OF URINE MAY A FFECT DIPSTICK RESULTS. Bilirubin, totalOrdered By: Mahendra Devine on 07-06-2024 Bilirubin [Mass/Vol] 0.66 mg/dL 0.00-1.30 [facility] Bilirubin, totalOrdered By: Caitlin Tilley on 07-06-2024 Bilirubin [Mass/Vol] 0.56 mg/dL 0.00-1.30 [facility] CBC W/Diff, Automatedon 05-02 26-2024 Absolute Lymph 3.61 X10 3/uL Normal 0.83-4.51 [facility] Comment on above: Performed By: #### L 501.6901, L500.4050 #### [facility] [address] [place], [address] Absolute Neut 6.3 X10 3/uL Normal 2.0-7.7 [facility] Comment on above: Performed By: #### L 501.6901, L500.4050 #### [facility] [address] [place], [address] Basophils/100 WBC (Bld) 0.4 % Normal 0-1 [facility] Comment on above: Performed By: #### L 501.6901, L500.4050 #### [facility] [address] [place], [address] Eosinophils/100 WBC (Bld) 0.7 % Normal 0-5 [facility] Comment on above: Performed By: #### L 501.6901, L500.4050 #### [facility] [address] [place], [address] Erythrocyte distribution width (RBC) [Ratio] 14.2 % Normal 11.6-14.6 [facility] Comment on above: Performed By: #### L 501.6901, L500.4050 #### [facility] [address] [place], [address] Hematocrit (Bld) [Volume fraction] 52.2 % High 37-47 [facility] Comment on above: Performed By: #### L 501.6901, L500.4050 #### [facility] [address] [place], [address] Hemoglobin (Bld) [Mass/Vol] 17.9 g/dL High 12.0-15.0 [facility] Comment on above: Performed By: #### L 501.6901, L500.4050 #### [facility] [address] [place], [address] IG% 0.400 Normal 0.0-0.9 [facility] Comment on above: Result Comment: IG% - Immature Granulocytes (promyelocytes, myelocytes and metamyelocytes) > 1% indicates that a LEFT SHIFT is Present. Performed By: #### L 501.6901, L500.4050 #### [facility] [address] [place], [address] Lymphocytes/100 WBC (Bld) 32.3 % Normal 19-41 [facility] Comment on above: Performed By: #### L 501.6901, L500.4050 #### [facility] [address] [place], [address] MCH (RBC) [Entitic mass] 28.5 pg Normal 27.0-32.0 [facility] Comment on above: Performed By: #### L 501.6901, L500.4050 #### [facility] [address] [place], [address] MCHC (RBC) [Mass/Vol] 34.3 g/dL Normal 32-36 [facility] Comment on above: Performed By: #### L 501.6901, L500.4050 #### [facility] [address] [place], [address] MCV (RBC) [Entitic vol] 83.0 fL Normal 81-99 [facility] Comment on above: Performed By: #### L 501.6901, L500.4050 #### [facility] [address] [place], [address] Monocytes/100 WBC (Bld) 9.9 % Normal 0-10 [facility] Comment on above: Performed By: #### L 501.6901, L500.4050 #### [facility] [address] [place], [address] Neutrophils/100 WBC (Bld) 56.3 % Normal 47-70 [facility] Comment on above: Performed By: #### L 501.6901, L500.4050 #### [facility] [address] [place], [address] Nucleated RBC (Bld) [#/Vol] 0 10*3/uL Normal 0-5 [facility] Comment on above: Performed By: #### L 501.6901, L500.4050 #### [facility] [address] [place], [address] Platelet mean volume (Bld) [Entitic vol] 11.1 fL Normal 6.2-12.0 [facility] Comment on above: Performed By: #### L 501.6901, L500.4050 #### [facility] [address] [place], [address] Platelets (Bld) [#/Vol] 325 10*3/uL Normal 150-450 [facility] Comment on above: Performed By: #### L 501.6901, L500.4050 #### [facility] [address] [place], [address] RBC (Bld) [#/Vol] 6.29 10*6/uL High 4.2-5.4 [facility] Comment on above: Performed By: #### L 501.6901, L500.4050 #### [facility] [address] [place], [address] RDW SD 42.5 fl Normal 35.1-43.9 [facility] Comment on above: Performed By: #### L 501.6901, L500.4050 #### [facility] [address] [place], [address] WBC (Bld) [#/Vol] 11.2 10*3/uL High 4.4-11.0 [facility] Comment on above: Performed By: #### L 501.6901, L500.4050 #### [facility] [address] [place], [address] Absolute Lymph 2.88 X10 3/uL Normal 0.83-4.51 [facility] Comment on above: Performed By: #### L 100.0100 #### [facility] [address] [place], [address] Absolute Neut 6.1 X10 3/uL Normal 2.0-7.7 [facility] Comment on above: Performed By: #### L 100.0100 #### [facility] [address] [place], [address] Basophils/100 WBC (Bld) 0.5 % Normal 0-1 [facility] Comment on above: Performed By: #### L 100.0100 #### [facility] [address] [place], [address] Eosinophils/100 WBC (Bld) 0.4 % Normal 0-5 [facility] Comment on above: Performed By: #### L 100.0100 #### [facility] [address] [place], [address] Erythrocyte distribution width (RBC) [Ratio] 13.8 % Normal 11.6-14.6 [facility] Comment on above: Performed By: #### L 100.0100 #### [facility] [address] [place], [address] Hematocrit (Bld) [Volume fraction] 52.4 % High 37-47 [facility] Comment on above: Performed By: #### L 100.0100 #### [facility] [address] [place], [address] Hemoglobin (Bld) [Mass/Vol] 17.9 g/dL High 12.0-15.0 [facility] Comment on above: Performed By: #### L 100.0100 #### [facility] [address] [place], [id number] IG% 0.400 Normal 0.0-0.9 [facility] Comment on above: Result Comment: IG% - Immature Granulocytes (promyelocytes, myelocytes and metamyelocytes) > 1% indicates that a LEFT SHIFT is Present. Performed By: #### L 100.0100 #### [facility] [address] [place], [id number] Lymphocytes/100 WBC (Bld) 28.7 % Normal 19-41 [facility] Comment on above: Performed By: #### L 100.0100 #### [facility] [address] [place], [address] MCH (RBC) [Entitic mass] 28.6 pg Normal 27.0-32.0 [facility] Comment on above: Performed By: #### L 100.0100 #### [facility] [address] [place], [address] MCHC (RBC) [Mass/Vol] 34.2 g/dL Normal 32-36 [facility] Comment on above: Performed By: #### L 100.0100 #### [facility] [address] [place], [address] MCV (RBC) [Entitic vol] 83.7 fL Normal 81-99 [facility] Comment on above: Performed By: #### L 100.0100 #### [facility] [address] [place], [id number] Monocytes/100 WBC (Bld) 9.5 % Normal 0-10 [facility] Comment on above: Performed By: #### L 100.0100 #### [facility] [address] [place], [address] Neutrophils/100 WBC (Bld) 60.5 % Normal 47-70 [facility] Comment on above: Performed By: #### L 100.0100 #### [facility] [address] [place], [address] Nucleated RBC (Bld) [#/Vol] 0 10*3/uL Normal 0-5 [facility] Comment on above: Performed By: #### L 100.0100 #### [facility] [address] [place], [address] Platelet mean volume (Bld) [Entitic vol] 11.2 fL Normal 6.2-12.0 [facility] Comment on above: Performed By: #### L 100.0100 #### [facility] [address] [place], [address] Platelets (Bld) [#/Vol] 335 10*3/uL Normal 150-450 [facility] Comment on above: Performed By: #### L 100.0100 #### [facility] [address] [place], [address] RBC (Bld) [#/Vol] 6.26 10*6/uL High 4.2-5.4 [facility] Comment on above: Performed By: #### L 100.0100 #### [facility] [address] [place], [address] RDW SD 42.2 fl Normal 35.1-43.9 [facility] Comment on above: Performed By: #### L 100.0100 #### [facility] [address] [place], [address] WBC (Bld) [#/Vol] 10.1 10*3/uL Normal 4.4-11.0 [facility] Comment on above: Performed By: #### L 100.0100 #### [facility] [address] [place], [place], [id number] CO2 (BldV) [Moles/Vol]Ordere d By: Mahendra Devine on 07-06-2024 CO2 [Moles/Vol] 17 mmol/L Low 23-33 [facility] Calculated very low density lipoprotein (VLDL) cholesterol measurementOrdered By: Caitlin Tilley on 07-06-2024 Calculated very low density lipoprotein (VLDL) cholesterol measurement 27 mg/dL 5-40 [facility] Carbon dioxide, total [Moles /volume] in Central venous bloodOrdered By: Mahendra Devine on 07-06-2024 CO2 [Moles/Vol] 15.5 mmol/L Low 21.0-32.0 [facility] Carbon dioxide, total [Moles /volume] in Central venous bloodOrdered By: Caitlin Tilley on 07-06-2024 CO2 [Moles/Vol] 11.0 mmol/L Low 21.0-32.0 [facility] Chloride assayOrdered By: Juan Manuel Devine on 07-06-2024 Chloride [Moles/Vol] 100 mmol/L 98-108 [facility] Chloride assayOrdered By: Me glo Tilley on 07-06-2024 Chloride [Moles/Vol] 102 mmol/L 98-108 [facility] Comprehensive Metabolic Prof ilon 07-06-2024 Albumin [Mass/Vol] 4.5 g/dL Normal 3.4-4.8 [facility] Comment on above: Performed By: #### L 501.6901, L500.4050 #### [facility] [address] [place], [place], [id number] Albumin/Globulin [Mass ratio] 1.0 {ratio} Normal 0.9-2.4 [facility] Comment on above: Performed By: #### L 501.6901, L500.4050 #### [facility] [address] [place], [place], [id number] ALK PHOS 133 U/L High 35-104 [facility] Comment on above: Performed By: #### L 501.6901, L500.4050 #### [facility] [address] [place], [address] ALT [Catalytic activity/Vol] 34 U/L Normal <=34 [facility] Comment on above: Performed By: #### L 501.6901, L500.4050 #### [facility] [address] [place], [address] AST [Catalytic activity/Vol] 29 U/L Normal <=31 [facility] Comment on above: Performed By: #### L 501.6901, L500.4050 #### [facility] [address] [place], [address] Bilirubin [Mass/Vol] 0.66 mg/dL Normal 0.00-1.30 [facility] Comment on above: Performed By: #### L 501.6901, L500.4050 #### [facility] [address] [place], [address] BUN/CRE 40.9 RATIO High 10-20 [facility] Comment on above: Performed By: #### L 501.6901, L500.4050 #### [facility] [address] [place], [address] Calcium [Mass/Vol] 9.3 mg/dL Normal 7.6-11.0 [facility] Comment on above: Performed By: #### L 501.6901, L500.4050 #### [facility] [address] [place], [address] Chloride [Moles/Vol] 100 mmol/L Normal 98-108 [facility] Comment on above: Performed By: #### L 501.6901, L500.4050 #### [facility] [address] [place], [address] CO2 [Moles/Vol] 15.5 mmol/L Low 21.0-32.0 [facility] Comment on above: Performed By: #### L 501.6901, L500.4050 #### [facility] [address] [place], [address] Creatinine [Mass/Vol] 1.52 mg/dL High 0.70-1.20 [facility] Comment on above: Performed By: #### L 501.6901, L500.4050 #### [facility] [address] [place], [address] ECRCL 49.55 ml/min Low 50-250 [facility] Comment on above: Performed By: #### L 501.6901, L500.4050 #### [facility] [address] [place], [address] GAP 17 High 5-15 [facility] Comment on above: Performed By: #### L 501.6901, L500.4050 #### [facility] [address] [place], [address] GFR/1.73 sq M.predicted among non-blacks MDRD (S/P/Bld) [Vol rate/Area] 39 mL/min/{1.73_m2} Low >60 [facility] Comment on above: Result Comment: mL/m in/1.73m2 CKD-EPI Creatinine Equation (2020) Performed By: #### L 501.6901, L500.4050 #### [facility] [address] [place], [address] Globulin (S) [Mass/Vol] 4.3 g/dL High 2.2-4.2 [facility] Comment on above: Performed By: #### L 501.6901, L500.4050 #### [facility] [address] [place], [address] Glucose [Mass/Vol] 186 mg/dL High 70-99 [facility] Comment on above: Performed By: #### L 501.6901, L500.4050 #### [facility] [address] [place], [address] Potassium [Moles/Vol] 3.4 mmol/L Normal 3.3-5.1 [facility] Comment on above: Performed By: #### L 501.6901, L500.4050 #### [facility] [address] [place], [address] Sodium [Moles/Vol] 132 mmol/L Low 133-145 [facility] Comment on above: Performed By: #### L 501.6901, L500.4050 #### [facility] [address] [place], [address] T PROT 8.8 g/dL High 5.9-8.4 [facility] Comment on above: Performed By: #### L 501.6901, L500.4050 #### [facility] [address] [place], [address] Urea nitrogen [Mass/Vol] 62 mg/dL High 4-19 [facility] Comment on above: Performed By: #### L 501.6901, L500.4050 #### [facility] [address] [place], [address] Albumin [Mass/Vol] 4.5 g/dL Normal 3.4-4.8 [facility] Comment on above: Performed By: #### L 100.0100 #### [facility] [address] [place], [address] Albumin/Globulin [Mass ratio] 1.0 {ratio} Normal 0.9-2.4 [facility] Comment on above: Performed By: #### L 100.0100 #### [facility] [address] [place], [address] ALK PHOS 133 U/L High 35-104 [facility] Comment on above: Performed By: #### L 100.0100 #### [facility] [address] [place], [address] ALT [Catalytic activity/Vol] 35 U/L Normal <=34 [facility] Comment on above: Performed By: #### L 100.0100 #### [facility] [address] [place], [address] AST [Catalytic activity/Vol] 28 U/L Normal <=31 [facility] Comment on above: Performed By: #### L 100.0100 #### [facility] [address] [place], [address] Bilirubin [Mass/Vol] 0.56 mg/dL Normal 0.00-1.30 [facility] Comment on above: Performed By: #### L 100.0100 #### [facility] [address] [place], [address] BUN/CRE 40.0 RATIO High 10-20 [facility] Comment on above: Performed By: #### L 100.0100 #### [facility] [address] [place], [address] Calcium [Mass/Vol] 9.2 mg/dL Normal 7.6-11.0 [facility] Comment on above: Performed By: #### L 100.0100 #### [facility] [address] [place], [address] Chloride [Moles/Vol] 102 mmol/L Normal 98-108 [facility] Comment on above: Performed By: #### L 100.0100 #### [facility] [address] [place], [address] CO2 [Moles/Vol] 11.0 mmol/L Low 21.0-32.0 [facility] Comment on above: Performed By: #### L 100.0100 #### [facility] [address] [place], [address] Creatinine [Mass/Vol] 1.41 mg/dL High 0.70-1.20 [facility] Comment on above: Performed By: #### L 100.0100 #### [facility] [address] [place], [address] GAP 19 High 5-15 [facility] Comment on above: Performed By: #### L 100.0100 #### [facility] [address] [place], [address] GFR/1.73 sq M.predicted among non-blacks MDRD (S/P/Bld) [Vol rate/Area] 42 mL/min/{1.73_m2} Low >60 [facility] Comment on above: Result Comment: mL/m in/1.73m2 CKD-EPI Creatinine Equation (2020) Performed By: #### L 100.0100 #### [facility] [address] [place], [address] Globulin (S) [Mass/Vol] 4.3 g/dL High 2.2-4.2 [facility] Comment on above: Performed By: #### L 100.0100 #### [facility] [address] [place], [address] Glucose [Mass/Vol] 185 mg/dL High 70-99 [facility] Comment on above: Performed By: #### L 100.0100 #### [facility] [address] [place], [address] Potassium [Moles/Vol] 3.3 mmol/L Normal 3.3-5.1 [facility] Comment on above: Performed By: #### L 100.0100 #### [facility] [address] [place], [address] Sodium [Moles/Vol] 132 mmol/L Low 133-145 [facility] Comment on above: Performed By: #### L 100.0100 #### [facility] [address] [place], [address] T PROT 8.8 g/dL High 5.9-8.4 [facility] Comment on above: Performed By: #### L 100.0100 #### [facility] [address] [place], [address] Urea nitrogen [Mass/Vol] 56 mg/dL High 4-19 [facility] Comment on above: Performed By: #### L 100.0100 #### [facility] [address] [place], [address] Emergency Department Summary on 07-06-2024 Emergency Department Summary [facility] Medical Records Department [address] [place] [address] Emergency Department Summary 07/06/24 MR#: [id number] Acct: [id number] Name: LIGIA RIVAS Rep #: [id number] : 1960 63 From: Mahendra Devine MD PCP: Dr. Pancho Tran MD Status:REG ER Location: ED ADDENDUM by Dr. Mahendra Devine MD on 07/06/24 at 2303 EKG was obtained and interpreted by myself independently as sinus tachycardia at [address] changes. No STEMI. 07/06/24 2303 Cosigner Signature (if applicable): cc: Dr. Pancho Tran MD * Signed HPI History of Present Illness Chief Complaint: Abn Labs Narrative Narrative: 63-year-old female past medical history of diabetes, on Ozempic as well as Lantus presents at the direction of her primary care provider's office with concern for metabolic acidosis. She and her daughter relate history that over the last week she has had abdominal pain, nausea, vomiting, and diarrhea, she started to improve, however she still feels tired and fatigued with low energy. She saw her auto damage adjuster today, and had laboratory work drawn. She states that they are trying to wean her off Ozempic and insulin. She states that her blood sugars have been controlled recently. She does have type 2 diabetes, but was told that there is concerned that she has metabolic acidosis. This was based off the laboratory work that was drawn today. [facility] Medical History Anxiety and depression Health care maintenance Wears contact lenses Depression Thyroid disease Insulin dependent diabetes mellitus Ambulates with cane Arthritis PONV (postoperative nausea and vomiting) High cholesterol Dietary restriction Non-smoker CPAP (continuous positive airway pressure) dependence Sleep apnea History of stress test Right rotator cuff tear Osteoarthritis of left hip Left hip pain Impingement of right shoulder Right shoulder pain Diabetic neuropathy Mild depression Hyperlipidemia GERD (gastroesophageal reflux disease) Muscle cramps Bilateral lower extremity edema Endometrial thickening on ultrasound Patellar fracture HTN (hypertension) Type 2 diabetes mellitus GITA (obstructive sleep apnea) Home Medications ???Medication ???Instructions ???Recorded ???Last Taken ???Type albuterol sulfate 90 mcg/actuation 2 puff inhalation Q6H PRN 07/03/24 History aerosol inhaler (Ventolin HFA) shortness of breath or wheezing blood-glucose transmitter (Dexcom #1 ea 01/04/23 Unknown History G6 Transmitter device) trazodone 150 mg tablet 75 mg PO QHS 01/04/23 07/03/24 His tory glipizide 10 mg tablet, extended 10 mg PO BID 08/05/23 07/03/24 His tory release 24 hr ropinirole 1 mg tablet 1 mg PO QHS 08/05/23 07/05/24 Hist ory losartan 100 1 tab PO DAILY 10/07/23 07/03/24 H istory mg-hydrochlorothiazide 12.5 mg tablet insulin lispro 100 unit/mL 5 unit (0.05 mL) subcut TID #15 mL 12/24/23 Unknown Rx subcutaneous pen (Humalog KwikPen (U-100) Insulin) semaglutide 2 mg/dose (8 mg/3 mL) 2 mg (0.75 mL) subcut MILLS #9 mL Unknown Rx subcutaneous pen injector (Ozempic) empagliflozin 25 mg tablet 25 mg PO QDAY #30 tabs 01/10/24 Rx (Jardiance) Held on 07/06/24. Instructions: Ordered methimazole 10 mg tablet 20 mg (2 x 10 mg) PO DAILY #60 tab s 03/14/24 07/03/24 Rx blood sugar diagnostic (OneTouch #100 ea 04/13/24 Unknown Rx Ultra Test strips) cholecalciferol (vitamin D3) 25 25 mcg PO QDAY 04/13/24 07/03/24 H istory mcg (1,000 unit) capsule duloxetine 60 mg capsule,delayed 60 mg PO DAILY #90 caps 04/13/24 0 07/03/24 Rx release potassium chloride 20 mEq 20 meq PO QDAY #90 tabs 04/13/24 0 07/03/24 Rx tablet,extended release(part/cryst) insulin glargine 100 unit/mL (3 14 unit subcut DAILY 04/20/24 Unkn own History mL) subcutaneous pen (Lantus Solostar U-100 Insulin) calcium carbonate PO 07/06/24 Unknown History mecobalamin (vitamin B12) 500 mcg 500 mcg PO DAILY 07/06/24 5 History chewable tablet Allergy/AdvReac Type Severity Reaction Status Date / Time No Known Allergies Allergy Verified 07/06/24 17:47 Family History Father Diabetes Hypertension COPD (chronic obstructive pulmonary disease) Heart disease Kidney disease Brother Heart disease Hypertension Diabetes Pancreatic cancer Mother A-fib Heart disease Surgical History History of total left hip replacement History of surgical procedure on eye proper using laser S/P foot surgery, left Tubal ligation status H/O section Hx of cholecystectomy H/O foot surgery Social (more content not included)... Normal [facility] Endocrinology Visit Reporton 07-06-2024 Endocrinology Visit Report [facility] [address] [place] [address] OFFICE VISIT Date of Service: 07/06/24 MR#: [id number] Acct: [id number] Name: LIGIA RIVAS Rep #: [id number] : 1960 Provider: ARCADIO dodd Age/Sex: 63/F Location: [facility] Status: Signed Intake Vital Signs 04/13/24 09:43 05/24/24 12:15 07/06/24 09:45 Height 5 ft 7 in 5 ft 7 in 5 ft 7 in Weight: 239 lb 6 oz BMI 37.5 BP 130/85 H Blood Pressure Location Lt brachial Position Sitting Pulse 102 H Pulse Source Monitor Pulse Oximetry (%) 96 Oxygen Delivery Method room air Intake Visit Reasons: 3 M FU Chief Complaint: f/u diabetes and hyperthyroid Is patient in pain?: No Allergies No Known Allergies Allergy (Verified 07/06/24 10:37) Medications ???Medication ???Instructions ???Recorded ???Confirmed ???Type albuterol sulfate 90 mcg/actuation 2 puff inhalation Q6H PRN 07/06/24 History aerosol inhaler (Ventolin HFA) shortness of breath or wheezing blood-glucose transmitter (Dexcom #1 ea 01/04/23 07/06/24 History G6 Transmitter device) trazodone 150 mg tablet 150 mg PO QHS 01/04/23 07/06/24 Hi story glipizide 10 mg tablet, extended 10 mg PO BID 08/05/23 07/06/24 His tory release 24 hr ropinirole 1 mg tablet 1 mg PO QHS 08/05/23 07/06/24 Hist ory losartan 100 1 tab PO DAILY 10/07/23 07/06/24 H istory mg-hydrochlorothiazide 12.5 mg tablet insulin lispro 100 unit/mL 5 unit (0.05 mL) subcut TID #15 mL 12/24/23 07/06/24 Rx subcutaneous pen (Humalog KwikPen (U-100) Insulin) semaglutide 2 mg/dose (8 mg/3 mL) 2 mg (0.75 mL) subcut MILLS #9 mL 07/06/24 Rx subcutaneous pen injector (Ozempic) empagliflozin 25 mg tablet 25 mg PO QDAY #30 tabs 01/10/24 Rx (Jardiance) methimazole 10 mg tablet 20 mg (2 x 10 mg) PO DAILY #60 tab s 03/14/24 07/06/24 Rx blood sugar diagnostic (OneTouch #100 ea 04/13/24 07/06/24 Rx Ultra Test strips) cholecalciferol (vitamin D3) 25 25 mcg PO QDAY 04/13/24 07/06/24 H istory mcg (1,000 unit) capsule duloxetine 60 mg capsule,delayed 60 mg PO DAILY #90 caps 04/13/24 0 07/06/24 Rx release potassium chloride 20 mEq 20 meq PO QDAY #90 tabs 04/13/24 0 07/06/24 Rx tablet,extended release(part/cryst) insulin glargine 100 unit/mL (3 14 unit subcut DAILY 04/20/2406/22 History mL) subcutaneous pen (Lantus Solostar U-100 Insulin) calcium carb, citrate, malate mg PO 07/06/24 07/06/24 History fluconazole 200 mg tablet 200 mg PO QDAY #2 tabs 07/06/24 Rx (Diflucan) mecobalamin (vitamin B12) 500 mcg mcg PO 07/06/24 07/06/24 History chewable tablet PFSH Medical History Anxiety and depression Health care maintenance Wears contact lenses Depression Thyroid disease Insulin dependent diabetes mellitus Ambulates with cane Arthritis PONV (postoperative nausea and vomiting) High cholesterol Dietary restriction Non-smoker CPAP (continuous positive airway pressure) dependence Sleep apnea History of stress test Right rotator cuff tear Osteoarthritis of left hip Left hip pain Impingement of right shoulder Right shoulder pain Diabetic neuropathy Mild depression Hyperlipidemia GERD (gastroesophageal reflux disease) Muscle cramps Bilateral lower extremity edema Endometrial thickening on ultrasound Patellar fracture HTN (hypertension) Type 2 diabetes mellitus GITA (obstructive sleep apnea) Surgical History History of total left hip replacement History of surgical procedure on eye proper using laser S/P foot surgery, left Tubal ligation status H/O section Hx of cholecystectomy H/O foot surgery Family History Father Diabetes Hypertension COPD (chronic obstructive pulmonary disease) Heart disease Kidney disease Brother Heart disease Hypertension Diabetes Pancreatic cancer Mother A-fib Heart disease Social History adopted: No household members: spouse, family and other details: has step son and custody of 3 grandchildren housing: house number of children: 3 current occupational status: employed current occupation: [employer] People living pets and animals: Yes pets and animals: cat(s) and dog(s) history of recent travel: Yes () out of state: Yes out of country: No Smoking Status: Never smoker Electronic Cigarette Use: not used second hand exposure: No alcohol intake: never substance use type: does not use well-balanced diet: about half the time caffeine: Yes what type of physical activity do (more content not included)... Normal [facility] Eosinophil percentageOrdered By: Mahendra Devine on 07-06-2024 Eosinophils/100 WBC (Bld) 0.7 % 0-5 [facility] Eosinophil percentageOrdered By: Manan Escobar on 07-06-2024 Eosinophils/100 WBC (Bld) 0.4 % 0-5 [facility] Erythrocyte distribution wid th ratioOrdered By: Mahendra Devine on 07-06-2024 Erythrocyte distribution width (RBC) [Ratio] 14.2 % 11.6-14.6 [facility] Erythrocyte distribution wid th ratioOrdered By: Manan Escobar on 07-06-2024 Erythrocyte distribution width (RBC) [Ratio] 13.8 % 11.6-14.6 [facility] Erythrocyte distribution wid th standard deviationOrdered By: Mahendra Devine on 07-06-2024 Erythrocyte distribution width (RBC) [Ratio] 42.5 fl 35.1-43.9 [facility] Erythrocyte distribution wid th standard deviationOrdered By: Manan Escobar on 07-06-2024 Erythrocyte distribution width (RBC) [Ratio] 42.2 fl 35.1-43.9 [facility] Free L8Ckvtyih By: Alejandra Weiner on 07-06-2024 Free T3 [Mass/Vol] 4.1 pg/mL High 2.18-3.98 [facility] Free T3on 07-06-2024 Free T3 [Mass/Vol] 3.8 pg/mL Normal 2.18-3.98 [facility] Comment on above: Performed By: #### L 501.6901, L500.4050 #### [facility] [address] [place], [place] [address], [address] Free B8Hdgnggn By: Sury on 07-06-2024 Free T3 [Mass/Vol] 3.8 pg/mL 2.18-3.98 [facility] Glomerular filtration rate ( GFR) estimation/1.73 sq m using serum, plasma, or whole bOrdered By: Mahendra Devine on 07-06-2024 GFR/1.73 sq M.predicted among non-blacks MDRD (S/P/Bld) [Vol rate/Area] 39 mL/min/{1.73_m2} Low >60 [facility] Comment on above: mL/min/1.73m2 CKD-EP I Creatinine Equation (2020) Glomerular filtration rate ( GFR) estimation/1.73 sq m using serum, plasma, or whole bOrdered By: Caitlin Tilley on 07-06-2024 GFR/1.73 sq M.predicted among non-blacks MDRD (S/P/Bld) [Vol rate/Area] 42 mL/min/{1.73_m2} Low >60 [facility] Comment on above: mL/min/1.73m2 CKD-EP I Creatinine Equation (2020) [facility] deOrdered By: Alejandra Weiner on 07-06-2024 Glucose [Mass/Vol] 134 mg/dL High 74-106 [facility] Comment on above: MANAGEMENT OF PATIEN T CARE PER NURSING PROTOCOL Hematocrit Auto (Bld) [Volum e fraction]Ordered By: Mahendra Devine on 07-06-2024 Hematocrit (Bld) [Volume fraction] 52.2 % High 37-47 [facility] Hematocrit Auto (Bld) [Volum e fraction]Ordered By: Manan Escobar on 07-06-2024 Hematocrit (Bld) [Volume fraction] 52.4 % High 37-47 [facility] Hemoglobin measurementOrdere d By: Mahendra Devine on 07-06-2024 Hemoglobin (Bld) [Mass/Vol] 17.9 g/dL High 12.0-15.0 [facility] Hemoglobin measurementOrdere d By: Manan Escobar on 07-06-2024 Hemoglobin (Bld) [Mass/Vol] 17.9 g/dL High 12.0-15.0 [facility] Hyaline casts LM.LPF (Urine sed) [#/Area]Ordered By: Mahendra Devine on 07-06-2024 Hyaline casts (Urine sed) [#/Area] 5 /[LPF] 0-5 [facility] Immature granulocytes/100 WB C Auto (Bld)Ordered By: Mahendra Devine on 07-06-2024 Immature granulocytes/100 WBC (Bld) 0.400 % 0.0-0.9 [facility] Comment on above: IG% - Immature Granu locytes (promyelocytes, myelocytes and metamyelocytes) > 1% indicates that a LEFT SHIFT is Present. Immature granulocytes/100 WB C Auto (Bld)Ordered By: Manan Escobar on 07-06-2024 Immature granulocytes/100 WBC (Bld) 0.400 % 0.0-0.9 [facility] Comment on above: IG% - Immature Granu locytes (promyelocytes, myelocytes and metamyelocytes) > 1% indicates that a LEFT SHIFT is Present. Internal Medicine Office Vis iton 07-06-2024 Internal Medicine Office Visit [facility] [place] [address] OFFICE VISIT Date of Service: 07/06/24 MR#: [id number] Acct: [id number] Name: LIGIA RIVAS Rep #: [id number] : 1960 Provider: BEVERLY Barajas Age/Sex: 63/F Location: [facility] Status: Signed Intake Vital Signs 05/24/24 12:15 07/06/24 09:45 07/06/24 10:55 Height 5 ft 7 in 5 ft 7 in 5 ft 7 in Weight: 239 lb 6 oz 239 lb BMI 37.5 37.4 BP 130/85 H 118/78 Blood Pressure Location Lt brachial Lt brachial Position Sitting Sitting Respiration 16 Pulse 102 H 101 H Pulse Source Monitor Monitor Temp 96.9 F L Temp Source Temporal Pulse Oximetry (%) 96 98 Oxygen Delivery Method room air room air Intake Visit Reasons: ACUTE DIARRHEA AND VOMITING SINCE WEDNESDAY 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: No Is patient in pain?: Yes (abdominal pain) Pain scale (1-10): 5 Allergies No Known Allergies Allergy (Verified 07/06/24 10:37) Medications ???Medication ???Instructions ???Recorded ???Confirmed ???Type albuterol sulfate 90 mcg/actuation 2 puff inhalation Q6H PRN 07/06/24 History aerosol inhaler (Ventolin HFA) shortness of breath or wheezing blood-glucose transmitter (Dexcom #1 ea 01/04/23 07/06/24 History G6 Transmitter device) trazodone 150 mg tablet 150 mg PO QHS 01/04/23 07/06/24 Hi story glipizide 10 mg tablet, extended 10 mg PO BID 08/05/23 07/06/24 His tory release 24 hr ropinirole 1 mg tablet 1 mg PO QHS 08/05/23 07/06/24 Hist ory losartan 100 1 tab PO DAILY 10/07/23 07/06/24 H istory mg-hydrochlorothiazide 12.5 mg tablet insulin lispro 100 unit/mL 5 unit (0.05 mL) subcut TID #15 mL 12/24/23 07/06/24 Rx subcutaneous pen (Humalog KwikPen (U-100) Insulin) semaglutide 2 mg/dose (8 mg/3 mL) 2 mg (0.75 mL) subcut MILLS #9 mL 07/06/24 Rx subcutaneous pen injector (Ozempic) empagliflozin 25 mg tablet 25 mg PO QDAY #30 tabs 01/10/24 Rx (Jardiance) methimazole 10 mg tablet 20 mg (2 x 10 mg) PO DAILY #60 tab s 03/14/24 07/06/24 Rx blood sugar diagnostic (OneTouch #100 ea 04/13/24 07/06/24 Rx Ultra Test strips) cholecalciferol (vitamin D3) 25 25 mcg PO QDAY 04/13/24 07/06/24 H istory mcg (1,000 unit) capsule duloxetine 60 mg capsule,delayed 60 mg PO DAILY #90 caps 04/13/24 0 07/06/24 Rx release potassium chloride 20 mEq 20 meq PO QDAY #90 tabs 04/13/24 0 07/06/24 Rx tablet,extended release(part/cryst) insulin glargine 100 unit/mL (3 14 unit subcut DAILY 04/20/2406/22 History mL) subcutaneous pen (Lantus Solostar U-100 Insulin) calcium carb, citrate, malate mg PO 07/06/24 07/06/24 History cholestyramine-asparta me 4 gram 4 g PO TID #210 grams 07/06/24 Rx oral powder (Cholestyramine Light) fluconazole 200 mg tablet 200 mg PO QDAY #2 tabs 07/06/24 Rx (Diflucan) mecobalamin (vitamin B12) 500 mcg mcg PO 07/06/24 07/06/24 History chewable tablet Nurse's Note: Pt states that Wednesday she started w/ vomiting and diarrhea. She states Wednesday night she started not feeling well. Pt states her granddaughter had the same sx's on wednesday but was fine by Wednesday PM. Pt is using immodium and trying to stay hyrdated which is not helping. Has not tried any different foods. Pt states she has whole abdominal pain that feels like she has been sucker punched and is described as aching, and how it feels before you vomit. Pt states her Bm's are water. Will need work note starting Wednesday until she is able to return. Pt describes BM as smelly and mucusy, appearing light like chocolate milk Pt states that when she vomits it tastes acidic, denies sulfur burps. Pt denies fevers. Pt states that she saw Caitlin Tilley today and a1c was 7.1% today and fasting sugars are 150's. [facility] Medical History Anxiety and depression Health care maintenance Wears contact lenses Depression Thyroid disease Insulin dependent diabetes mellitus Ambulates with cane Arthritis PONV (postoperative nausea and vomiting) High cholesterol Dietary restriction Non-smoker CPAP (continuous positive airway pressure) dependence Sleep apnea History of stress test Right rotator cuff tear Osteoarthritis of left hip Left hip pain Impingement of right shoulder Right shoulder pain Diabetic neuropathy Mild depression Hyperlipidemia GERD (gastroesophageal reflux disease) Muscle cramps Bilateral lower extremity edema Endometrial thickening on ultrasound Patellar fracture HTN (hypertension) Type 2 diabetes mellitus GITA (obstructive sleep apnea) Surgical History History of total left hip replacement History of surgical procedure on eye proper using laser (more content not included)... Normal [facility] Ketones Test strip Ql (U)Ord ered By: Mahendra Devine on 07-06-2024 Ketones Ql (U) Negative Negative [facility] LDL calc ser/plasOrdered By: Caitlin Tilley on 07-06-2024 Cholesterol in LDL [Mass/Vol] 51 mg/dL [facility] Comment on above: Xvvwssryly=173-454 m g/dL & Higher Rbcz=741 mg/dL or greater Laboratory - Chemistry and C hemistry - challengeOrdered By: Mahendra Devine on 07-06-2024 AST [Catalytic activity/Vol] 29 U/L <32 [facility] Laboratory - Chemistry and C hemistry - challengeOrdered By: Caitlin Tilley on 07-06-2024 AST [Catalytic activity/Vol] 28 U/L <32 [facility] Laboratory - Hematology and Cell countsOrdered By: Caitlin Tilley on 07-06-2024 HbA1c (Bld) [Mass fraction] 7.1 % High 4.2-6.3 [facility] Lipid Profileon 07-06-2024 CHOL:HDL 4.[address] [facility] Comment on above: Performed By: #### L 100.0100 #### [facility] [address] [place], [place], [id number] (721) Cholesterol [Mass/Vol] 100 mg/dL Normal <=200 [facility] Comment on above: Result Comment: Chol esterol level, Desirable <200 mg/dL Borderline high cholesterol 200-239 mg/dL High cholesterol >=240 mg/dL Recommendations of the NCEP Adult Treatment Panel for the following risk-cutoff thresholds for the [place] population. Performed By: #### L 100.0100 #### [facility] [address] [place], [address] Cholesterol in HDL [Mass/Vol] 22 mg/dL Low [facility] Comment on above: Result Comment: Janeth onal Cholesterol Education Program (NCEP) guidelines: <40 mg/dL: Low HDL-cholesterol (major risk factor for CHD) >= 60 mg/dL: High HDL-cholesterol (negative risk factor for CHD) HDL-cholesterol is affected by a number of factors, e.g. smoking, exercise, hormones, sex and age. Performed By: #### L 100.0100 #### [facility] [address] [place], [address] Cholesterol in LDL [Mass/Vol] 51 mg/dL Normal [facility] Comment on above: Result Comment: Bord jtqvej=044-883 mg/dL Higher Znwp=677 mg/dL or greater Performed By: #### L 100.0100 #### [facility] [address] [place], [address] Cholesterol in VLDL [Mass/Vol] 27 mg/dL Normal 5-40 [facility] Comment on above: Performed By: #### L 100.0100 #### [facility] [address] [place], [address] Triglyceride [Mass/Vol] 133 mg/dL Normal [facility] Comment on above: Result Comment: The drugs N-Acetylcysteine and Metamizole may falsely depress this assay. Normal range: <150 mg/dL Borderline High: 150-199 mg/dL High: 200-499 mg/dL Very High: >500 mg/dL Performed By: #### L 100.0100 #### [facility] [address] [place], [address] MCV (mean corpuscular volume ) determinationOrdered By: Mahendra Devine on 07-06-2024 MCV (RBC) [Entitic vol] 83.0 fL 81-99 [facility] MCV (mean corpuscular volume ) determinationOrdered By: Manan Escobar on 07-06-2024 MCV (RBC) [Entitic vol] 83.7 fL 81-99 [facility] Mean corpuscular hemoglobin (MCH) determinationOrdered By: Mahendra Devine on 07-06-2024 MCH (RBC) [Entitic mass] 28.5 pg 27.0-32.0 [facility] Mean corpuscular hemoglobin (MCH) determinationOrdered By: Manan Escobar on 07-06-2024 MCH (RBC) [Entitic mass] 28.6 pg 27.0-32.0 [facility] Mean corpuscular hemoglobin concentration (MCHC) determinationOrdered By: Mahendra Devine on 07-06-2024 MCHC (RBC) [Mass/Vol] 34.3 g/dL 32-36 [facility] Mean corpuscular hemoglobin concentration (MCHC) determinationOrdered By: Manan Escobar on 07-06-2024 MCHC (RBC) [Mass/Vol] 34.2 g/dL 32-36 [facility] Mean platelet volume determi nationOrdered By: Mahendra Devine on 07-06-2024 Platelet mean volume (Bld) [Entitic vol] 11.1 fL 6.2-12.0 [facility] Mean platelet volume determi nationOrdered By: Manan Escobar on 07-06-2024 Platelet mean volume (Bld) [Entitic vol] 11.2 fL 6.2-12.0 [facility] Microscopic analysis of urin e for red blood cells (RBC)Ordered By: Mahendra Devine on 07-06-2024 Microscopic analysis of urine for red blood cells (RBC) 0 SEEN /hpf 0-5 [facility] Monocyte percentageOrdered B y: Mahendra Devine on 07-06-2024 Monocytes/100 WBC (Bld) 9.9 % 0-10 [facility] Monocyte percentageOrdered B y: Manan Escobar on 07-06-2024 Monocytes/100 WBC (Bld) 9.5 % 0-10 [facility] Mucus LM Ql (Urine sed)Order ed By: Mahendra Devine on 07-06-2024 Mucus Ql (Urine sed) 0 SEEN /hpf [facility] Neutrophil percentageOrdered By: Mahendra Devine on 07-06-2024 Neutrophils/100 WBC (Bld) 56.3 % 47-70 [facility] Neutrophil percentageOrdered By: Manan Escobar on 07-06-2024 Neutrophils/100 WBC (Bld) 60.5 % 47-70 [facility] Nitrite Test strip Ql (U)Ord ered By: Mahendra Devine on 07-06-2024 Nitrite Ql (U) Negative Negative [facility] No Panel InformationOrdered By: Mahendra Devine on 07-06-2024 Blood Gas Sample Site Not entered [facility] Blood Gas Specimen Type CARLOTA [facility] Oxygen Delivery Device Not entered [facility] Nucleated red blood cell per centageOrdered By: Mahendra Devine on 07-06-2024 Nucleated RBC/100 WBC (Bld) [Ratio] 0 % 0-5 [facility] Nucleated red blood cell per centageOrdered By: Manan Escobar on 07-06-2024 Nucleated RBC/100 WBC (Bld) [Ratio] 0 % 0-5 [facility] Platelet countOrdered By: Juan Manuel Devine on 07-06-2024 Platelets (Bld) [#/Vol] 325 10*3/uL 150-450 [facility] Platelet countOrdered By: Delmy Escobar on 07-06-2024 Platelets (Bld) [#/Vol] 335 10*3/uL 150-450 [facility] Potassium measurement (mass/ volume)Ordered By: Mahendra Devine on 07-06-2024 Potassium (Unsp spec) [Mass/Vol] 3.4 mmol/L 3.3-5.1 [facility] Potassium measurement (mass/ volume)Ordered By: Caitlin Tilley on 07-06-2024 Potassium (Unsp spec) [Mass/Vol] 3.3 mmol/L 3.3-5.1 [facility] Protein Test strip Ql (U)Ord ered By: Mahendra Devine on 07-06-2024 Protein Ql (U) 30 mg/dl High Negative [facility] RBC Auto (Bld) [#/Vol]Ordere d By: Mahendra Devine on 07-06-2024 RBC (Bld) [#/Vol] 6.29 10*6/uL High 4.2-5.4 [facility] RBC Auto (Bld) [#/Vol]Ordere d By: Manan Escobar on 07-06-2024 RBC (Bld) [#/Vol] 6.26 10*6/uL High 4.2-5.4 [facility] Screening total cholesterol/ high density lipoprotein (HDL) cholesterol ratioOrdered By: Caitlin Tilley on 07-06-2024 Cholesterol.total/Adelaida sterol in HDL [Mass ratio] 4.46 {ratio} [facility] Serum creatinine measurement (mass/volume)Ordered By: Mahendra Devine on 07-06-2024 Creatinine [Mass/Vol] 1.52 mg/dL High 0.70-1.20 [facility] Serum creatinine measurement (mass/volume)Ordered By: Caitlin Tilley on 07-06-2024 Creatinine [Mass/Vol] 1.41 mg/dL High 0.70-1.20 [facility] Serum globulin measurementOr dered By: Mahendra Devine on 07-06-2024 Globulin (S) [Mass/Vol] 4.3 g/dL High 2.2-4.2 [facility] Serum globulin measurementOr dered By: Caitlin Tilley on 07-06-2024 Globulin (S) [Mass/Vol] 4.3 g/dL High 2.2-4.2 [facility] Serum glucose measurement (m ass/volume)Ordered By: Mahendra Devine on 07-06-2024 Glucose [Mass/Vol] 186 mg/dL High 70-99 [facility] Serum glucose measurement (m ass/volume)Ordered By: Caitlin Tilley on 07-06-2024 Glucose [Mass/Vol] 185 mg/dL High 70-99 [facility] Serum or plasma alanine webber otransferase (ALT) measurementOrdered By: Mahendra Devine on 07-06-2024 ALT [Catalytic activity/Vol] 34 U/L <35 [facility] Serum or plasma alanine webber otransferase (ALT) measurementOrdered By: Caitlin Tilley on 07-06-2024 ALT [Catalytic activity/Vol] 35 U/L <35 [facility] Serum or plasma albumin ricky urement (mass/volume)Ordered By: Mahendra Devine on 07-06-2024 Albumin [Mass/Vol] 4.5 g/dL 3.4-4.8 [facility] Serum or plasma albumin ricky urement (mass/volume)Ordered By: Caitlin Tilley on 07-06-2024 Albumin [Mass/Vol] 4.5 g/dL 3.4-4.8 [facility] Serum or plasma albumin/glob ulin mass ratioOrdered By: Mahendra Devine on 07-06-2024 Albumin/Globulin [Mass ratio] 1.0 {ratio} 0.9-2.4 [facility] Serum or plasma albumin/glob ulin mass ratioOrdered By: Caitlin Tilley on 07-06-2024 Albumin/Globulin [Mass ratio] 1.0 {ratio} 0.9-2.4 [facility] Serum or plasma alkaline usman sphatase measurementOrdered By: Mahendra Devine on 07-06-2024 ALP [Catalytic activity/Vol] 133 U/L High 35-104 [facility] Serum or plasma alkaline usman sphatase measurementOrdered By: Caitlin Tilley on 07-06-2024 ALP [Catalytic activity/Vol] 133 U/L High 35-104 [facility] Serum or plasma calcium ricky urement (mass/volume)Ordered By: Mahendra Devine on 07-06-2024 Calcium [Mass/Vol] 9.3 mg/dL 7.6-11.0 [facility] Serum or plasma calcium ricky urement (mass/volume)Ordered By: Caitlin Tilley on 07-06-2024 Calcium [Mass/Vol] 9.2 mg/dL 7.6-11.0 [facility] Serum or plasma cholesterol in HDL measurement (mass/volume)Ordered By: Caitlin Tilley on 07-06-2024 Cholesterol in HDL [Mass/Vol] 22 mg/dL Low >40 [facility] Comment on above: National Cholesterol Education Program (NCEP) guidelines:<40 mg/dL: Low HDL-cholesterol (major risk factor for CHD)>= 60 mg/dL: High HDL-cholesterol (negative risk factor for CHD)HDL-cholesterol is affected by a number of factors, e.g. smoking, exercise, hormones, sex and age. Serum or plasma cholesterol measurement (mass/volume)Ordered By: Caitlin Tilley on 07-06-2024 Cholesterol [Mass/Vol] 100 mg/dL <201 [facility] Comment on above: Cholesterol level, D esirable <200 mg/dLBorderline high cholesterol 200-239 mg/dLHigh cholesterol >=240 mg/dLRecommendations of the NCEP Adult Treatment Panel for the following risk-cutoff thresholds for the [place] population. Serum or plasma urea nitroge n measurement (mass/volume)Ordered By: Mahendra Devine on 07-06-2024 Urea nitrogen [Mass/Vol] 62 mg/dL High 4-19 [facility] Serum or plasma urea nitroge n measurement (mass/volume)Ordered By: Caitlin Tilley on 07-06-2024 Urea nitrogen [Mass/Vol] 56 mg/dL High 4-19 [facility] Sodium levelOrdered By: Mahendra Devine on 07-06-2024 Sodium [Moles/Vol] 132 mmol/L Low 133-145 [facility] Sodium levelOrdered By: Jorge Tilley on 07-06-2024 Sodium [Moles/Vol] 132 mmol/L Low 133-145 [facility] Squamous epithelial cells de tection in urine sediment by light microscopyOrdered By: Mahendra Devine on 07-06-2024 Epithelial cells.squamous LM Ql (Urine sed) 0-5 SEEN /hpf 5-10 [facility] T4 Free Directon 07-06-2024 T4 FREE DIRECT 1.40 ng/dL Normal 0.76-1.46 [facility] Comment on above: Performed By: #### L 501.6901, L500.4050 #### [facility] [address] [place], [place], [id number] T4 freeOrdered By: Sury on 07-06-2024 Free T4 [Mass/Vol] 1.40 ng/dL 0.76-1.46 [facility] TSH DL <= 0.005 mIU/L QnOrde red By: Caitlin Tilley on 07-06-2024 TSH Qn 1.580 uIU/mL 0.300-4.200 [facility] Thyroid Stim Hormone (TSH)on 07-06-2024 TSH 1.580 uIU/mL Normal 0.300-4.200 [facility] Comment on above: Performed By: #### L 501.6901, L500.4050 #### [facility] [address] [place], [address] Total proteinOrdered By: Xiomy Devine on 07-06-2024 Protein [Mass/Vol] 8.8 g/dL High 5.9-8.4 [facility] Total proteinOrdered By: Nova Tilley on 07-06-2024 Protein [Mass/Vol] 8.8 g/dL High 5.9-8.4 [facility] Triglycerides measurementOrd ered By: Caitlin Tilley on 07-06-2024 Triglyceride [Mass/Vol] 133 mg/dL <199 [facility] Comment on above: The drugs N-Acetylcy steine and Metamizole may falsely depress this assay. Normal range: <150 mg/dLBorderline High: 150-199 mg/dLHigh: 200-499 mg/dLVery High: >500 mg/dL Urinalysis, Completeon 07-06 BACTERIA 1+ /hpf Normal None Seen [facility] Comment on above: Order Comment: CLEAN CATCH Performed By: #### L 100.0100 #### [facility] [address] [place], [address] CAST,FINE GRAN 0-5 SEEN Normal 0-5 [facility] Comment on above: Order Comment: CLEAN CATCH Performed By: #### L 100.0100 #### [facility] [address] [place], [address] CAST,HYALINE 5-10 SEEN Normal 0-5 [facility] Comment on above: Order Comment: CLEAN CATCH Performed By: #### L 100.0100 #### [facility] [address] [place], [address] EPI,SQUAMOUS 0-5 SEEN Normal 5-10 [facility] Comment on above: Order Comment: CLEAN CATCH Performed By: #### L 100.0100 #### [facility] [address] [place], [address] WBC 0-5 SEEN Normal 0-5 [facility] Comment on above: Order Comment: CLEAN CATCH Performed By: #### L 100.0100 #### [facility] [address] [place], [address] Mucus Ql (Urine sed) 0 SEEN Normal [facility] Comment on above: Order Comment: CLEAN CATCH Performed By: #### L 100.0100 #### [facility] [address] [place], [address] RBC 0 SEEN Normal 0-5 [facility] Comment on above: Order Comment: CLEAN CATCH Performed By: #### L 100.0100 #### [facility] [address] [place], [address] Urine clarityOrdered By: Xiomy Devine on 07-06-2024 Clarity (U) Clear Clear [facility] Urine color determinationOrd ered By: Mahendra Devine on 07-06-2024 Color (U) Yellow Yellow [facility] Urine glucose detectionOrder ed By: Mahendra Devine on 07-06-2024 Glucose Ql (U) Normal mg/dl Normal [facility] Urine leukocyte esterase det ection by dipstickOrdered By: Mahendra Devine on 07-06-2024 Leukocyte esterase Test strip Ql (U) Negative Negative [facility] Urine pHOrdered By: Mahendra walton on 07-06-2024 pH (U) 5.0 [pH] 5.0 - 8.0 [facility] Urine sediment bacteria coun t by microscopy (number/high power field)Ordered By: Mahendra Devine on 07-06-2024 Bacteria LM.HPF (Urine sed) [#/Area] 1 /[HPF] None Seen [facility] Urine sediment fine granular cast count by microscopy (number/low power field)Ordered By: Mahendra Devine on 07-06-2024 Fine Granular Casts LM.LPF (Urine sed) [#/Area] 0-5 SEEN /lpf 0-5 [facility] Urine specific gravity measu rementOrdered By: Mahendra Devine on 07-06-2024 Specific gravity (U) [Rel density] 1.025 1.002-1.030 [facility] Urine urobilinogen measureme ntOrdered By: Mahendra Devine on 07-06-2024 Urobilinogen Ql (U) Normal mg/dl Normal [facility] Venous Blood Gason Blood Gas Type CARLOTA Normal [facility] Comment on above: Performed By: #### L 9000.0810 #### [facility] [address] [place], [address] CO2 [Moles/Vol] 17 mmol/L Low 23-33 [facility] Comment on above: Performed By: #### L 9000.0810 #### [facility] [address] [place], [address] [facility] Comment on above: Performed By: #### L 9000.0810 #### [facility] [address] [place], [address] HCO3 (Bld) [Moles/Vol] 16 mmol/L Low 22-26 [facility] Comment on above: Performed By: #### L 9000.0810 #### [facility] [address] [place], [address] O2 Delivery Dev Not entered [facility] Comment on above: Performed By: #### L 9000.0810 #### [facility] [address] [place], [address] SITE Not entered [facility] Comment on above: Performed By: #### L 9000.0810 #### [facility] [address] [place], [address] VBG BE -10 mmol/L Low -1.0-3.5 [facility] Comment on above: Performed By: #### L 9000.0810 #### [facility] [address] [place], [address] VBG pCO2 35.0 mmHg Low 41-51 [facility] Comment on above: Performed By: #### L 9000.0810 #### [facility] [address] [place], [address] VBG pH 7.28 Low 7.32-7.42 [facility] Comment on above: Performed By: #### L 9000.0810 #### [facility] [address] [place], [place], [address] VBG PO2 34 mmHg Normal 25-40 [facility] Comment on above: Performed By: #### L 9000.0810 #### [facility] [address] [place], [place], [address] VBG SO2 58 Normal 50-70 [facility] Comment on above: Performed By: #### L 9000.0810 #### [facility] [address] [place], [place], [address] Venous blood base excess leonardo surementOrdered By: Mahendra Devine on 07-06-2024 Base excess Calc (BldV) [Moles/Vol] -10 mmol/L Low -1.0-3.5 [facility] Venous blood bicarbonate leonardo surementOrdered By: Mahendra Devine on 07-06-2024 HCO3 (Bld) [Moles/Vol] 16 mmol/L Low 22-26 [facility] Venous blood oxygen saturati on measurementOrdered By: Mahendra Devine on 07-06-2024 Oxygen saturation in Blood 58 % 50-70 [facility] Venous blood pH measurementO rdered By: Mahendra Devine on 07-06-2024 pH (BldV) 7.28 [pH] Low 7.32-7.42 [facility] Venous blood partial pressur e of carbon dioxide measurementOrdered By: Mahendra Devine on 07-06-2024 CO2 (BldV) [Partial pressure] 35.0 mm[Hg] Low 41-51 [facility] Venous blood partial pressur e of oxygen measurementOrdered By: Mahendra Devine on 07-06-2024 Oxygen (BldV) [Partial pressure] 34 mm[Hg] 25-40 [facility] Vitamin D,25 Hydroxyon 07-06 Vitamin D 25-OH 31.3 ng/mL Normal 30-100 [facility] Comment on above: Result Comment: Erica min D Status Deficiency: <20 ng/mL (50nmol/L) Insufficiency: 20-30 ng/mL (50-75 nmol/L) Sufficiency: 30-100 ng/mL (75-250 nmol/L) Toxicity: >100 ng/mL (>250 nmol/L) Performed By: #### L 501.6901, L500.4050 #### [facility] [address] [place], [place], [id number] White blood cell (WBC) count Ordered By: Mahendra Devine on 07-06-2024 WBC (Bld) [#/Vol] 11.2 10*3/uL High 4.4-11.0 [facility] White blood cell (WBC) count Ordered By: Manan Escobar on 07-06-2024 WBC (Bld) [#/Vol] 10.1 10*3/uL 4.4-11.0 [facility] White blood cell countOrdere d By: Mahendra Devine on 07-06-2024 White blood cell count 0-5 SEEN /hpf 0-5 [facility] Bone density reportOrdered B y: Miki Ivan on 06-06-2024 Study report Skeletal system DXA [facility] [address] [place], [place] [address] Dexa Bone Density Study MR#: [id number] Acct: [id number] Name: LIGIA RIVAS Rep #: [id number] : 1960 F 63 From: Emerson Ivan MD PCP: Dr. Pancho Tran MD Status: R EG CLI Study:Dexa Bone Density Study Date of Exam: 06/01/24 Exam# [id number] Ordering Dr: Luke Tran MD PROCEDURE: DEXA BONE DENSITY STUDY 06/01/2024 REASON FOR EXAM: POST MENOPAUSAL F, age 63 y/o . Postmenopausal. TECHNIQUE: DXA scan of the lumbar spine and right hip, using make and model. REFERENCE LINKS: ISCD Adult Positions COMPARISON: None FINDINGS: BMD and T-SCORES Lumbar spine: 1.367 g/cm2, T-Score 2.9 L1 through L4 Right femoral neck: 0.710 g/cm2, T-Score -1.3 Femoral neck comparison data not recommended for monitoring change. Right total hip: 0.945 g/cm2, T-Score 0.0 Change from prior: 1.0 Fracture Risk Calculation: FRAX (10-year Fracture Risk) Score: FRAX scores should never be reported in a patient with osteoporosis on DEXA or for any patient that is on bone medication. The patient doesmeet the pharmacological treatment recommendations for prevention of osteoporosis BD/Dexa Bone Density Study IMPRESSION: OSTEOPENIA. Recommend follow-up as clinically warranted. Reading Location: [place] [address] CC: Dr. Pancho Tran MD ~ Picker Tender: Signed [facility] Breast imaging reportOrdered By: Esperanza Moreau on 06-02-2024 Study report [facility] [address] [place], [place] [address] SCRN MAMM (CAD)W/PERLA BILAT MR#: [id number] Acct: [id number] Name: LIGIA RIVAS Rep #: [id number] : 1960 F 63 From: Luz Moreau MD PCP: Dr. Pancho Tran MD Status: R EG CLI Study:SCRN MAMM (CAD)W/PERLA BILAT Date of Exa m: 06/01/24 Exam# [id number] Ordering Dr: Luke Tran MD EXAM: SCRN MAMM (CAD)W/PERLA BILAT 06/01/2024 CLINICAL HISTORY: F, Age 63 y/o , BREAST CANCER SCREENING TECHNIQUE: Bilateral screening digital breast tomosynthesis with 2D and 3D images. Computeraided detection. COMPARISON: Prior exam(s) dated 02/06/2020, 01/30/2019. FINDINGS: TISSUE DENSITY: The breast tissue is composed of scattered area of fibroglandular density.. Bilateral Breast Mammographic Findings: No significant masses, calcifications or other abnormalities are identified. BI/SCRN MAMM (CAD)W/PERLA BILAT IMPRESSION: Right Breast: BIRADS 1 NEGATIVE. Left Breast: BIRADS 1 NEGATIVE. OVERALL FINAL ASSESSMENT: BIRADS 1 NEGATIVE. RECOMMENDATION: Routine annual follow-up in 1 Year A letter with findings and recommendations will be mailed to the patient. Reading Location: [facility] CC: Dr. Pancho Tran MD ~ Picker Tender: Signed [facility] Dexa Bone Density Studyon Dexa Bone Density Study [facility] [address] [place] [address] Dexa Bone Density Study MR#: [id number] Acct: [id number] Name: LIGIA RIVAS Rep #: [id number] : 1960 F 63 From: Miki alcantar MD PCP: Dr. Pancho Tran MD Status: REG CLI Study: Dexa Bone Density Study Date of Exam: 06/01/24 Exam# [id number] Ordering Dr: Pancho Tran MD PROCEDURE: DEXA BONE DENSITY STUDY 06/01/2024 REASON FOR EXAM: POST MENOPAUSAL F, age 63 y/o . Postmenopausal. TECHNIQUE: DXA scan of the lumbar spine and right hip, using make and model. REFERENCE LINKS: ISCD Adult Positions COMPARISON: None FINDINGS: BMD and T-SCORES Lumbar spine: 1.367 g/cm2, T-Score 2.9 L1 through L4 Right femoral neck: 0.710 g/cm2, T-Score -1.3 Femoral neck comparison data not recommended for monitoring change. Right total hip: 0.945 g/cm2, T-Score 0.0 Change from prior: 1.0 Fracture Risk Calculation: FRAX (10-year Fracture Risk) Score: FRAX scores should never be reported in a patient with osteoporosis on DEXA or for any patient that is on bone medication. The patient doesmeet the pharmacological treatment recommendations for prevention of osteoporosis BD/Dexa Bone Density Study IMPRESSION: OSTEOPENIA. Recommend follow-up as clinically warranted. Reading Location: [facility] CC: Dr. Pancho Tran MD Picker Tender: Signed Normal [facility] SCRN MAMM (CAD)W/PERLA BILATo n 06-01-2024 SCRN MAMM (CAD)W/PERLA BILAT [facility] Imaging Services [address] [place] [address] SCRN MAMM (CAD)W/PERLA BILAT MR#: [id number] Acct: [id number] Name: LIGIA RIVAS Rep #: [id number] : 1960 F 63 From: Esperanza Moreau MD PCP: Dr. Pancho Tran MD Status: REG CLI Study: SCRN MAMM (CAD)W/PERLA BILAT Date of Exam: 05/23 Exam# [id number] Ordering Dr: Pancho Tran MD EXAM: SCRN MAMM (CAD)W/PERLA BILAT 06/01/2024 CLINICAL HISTORY: F, Age 63 y/o , BREAST CANCER SCREENING TECHNIQUE: Bilateral screening digital breast tomosynthesis with 2D and 3D images. Computer aided detection. COMPARISON: Prior exam(s) dated 02/06/2020, 01/30/2019. FINDINGS: TISSUE DENSITY: The breast tissue is composed of scattered area of fibroglandular density.. Bilateral Breast Mammographic Findings: No significant masses, calcifications or other abnormalities are identified. BI/SCRN MAMM (CAD)W/PERLA BILAT IMPRESSION: Right Breast: BIRADS 1 NEGATIVE. Left Breast: BIRADS 1 NEGATIVE. OVERALL FINAL ASSESSMENT: BIRADS 1 NEGATIVE. RECOMMENDATION: Routine annual follow-up in 1 Year A letter with findings and recommendations will be mailed to the patient. Reading Location: [facility] CC: Dr. Pancho Tran MD Picker Tender: Signed Normal [facility] PAP IG HPV APTIMA 16/18,45on 05-31-2024 ADEQ Comment Normal . [facility] Comment on above: Order Comment: Speci men Comment: [id number] Comment: Source.............CervixSpecimen Comment: Other..............Post MenopausalSpecimen Comment: No. of containers..01 ThinPrep Vial Result Comment: Sati sfactory for evaluation. Endocervical and/or squamous metaplastic cells (endocervical component) are present. Performed By: #### L 501.6901, L500.4050 #### [facility] [address] [place], [place], [address] COMM . Normal . [facility] Comment on above: Order Comment: Speci men Comment: [id number] Comment: Source.............CervixSpecimen Comment: Other..............Post MenopausalSpecimen Comment: No. of containers..01 ThinPrep Vial Performed By: #### L 501.6901, L500.4050 #### [facility] [address] [place], [address] COMMENT Comment Normal . [facility] Comment on above: Order Comment: Speci men Comment: [id number] Comment: Source.............CervixSpecimen Comment: Other..............Post MenopausalSpecimen Comment: No. of containers..01 ThinPrep Vial Result Comment: This liquid based ThinPrep(R) pap test was screened with the use of an image guided system. Performed By: #### L 501.6901, L500.4050 #### [facility] [address] [place], [place], [address] DIAG Comment Abnormal . [facility] Comment on above: Order Comment: Speci men Comment: [id number] Comment: Source.............CervixSpecimen Comment: Other..............Post MenopausalSpecimen Comment: No. of containers..01 ThinPrep Vial Result Comment: EPIT HELIAL CELL ABNORMALITY. ATYPICAL SQUAMOUS CELLS OF UNDETERMINED SIGNIFICANCE (ASC-US). Performed By: #### L 501.6901, L500.4050 #### [facility] [address] [place], [address] HPV APTIMA, HR Negative Normal Negative [facility] Comment on above: Order Comment: Speci men Comment: [id number] Comment: Source.............CervixSpecimen Comment: Other..............Post MenopausalSpecimen Comment: No. of containers..01 ThinPrep Vial Result Comment: This nucleic acid amplification test detects fourteen high- risk HPV types (16,18,31,33,35,39,45,51,52,56,58,59,66,68) without differentiation. Performed By: #### L 501.6901, L500.4050 #### [facility] [address] [place], [address] HPV Alka Rfx Comment Normal . [facility] Comment on above: Order Comment: Speci men Comment: [id number] Comment: Source.............CervixSpecimen Comment: Other..............Post MenopausalSpecimen Comment: No. of containers..01 ThinPrep Vial Result Comment: Crit eria not met, HPV Genotype not performed. Performed at: - [address], [place] [id number] [employer] Supervisor: Palak Matson MD, Phone: [phone] Performed at: [facility] [address] [place] [id number] [employer] Supervisor: Romulo Levin MD, Phone: [phone] Performed at: = - [address], [place] [id number] [employer] Supervisor: Palak Matson MD, Phone: [phone] Performed By: #### L 501.6901, L500.4050 #### [facility] [address] [place], [place], [address] PAPSMR Comment Normal . [facility] Comment on above: Order Comment: Speci men Comment: [id number] Comment: Source.............CervixSpecimen Comment: Other..............Post MenopausalSpecimen Comment: No. of containers..01 ThinPrep Vial Result Comment: The Pap smear is a screening test designed to aid in the detection of premalignant and malignant conditions of the uterine cervix. It is not a diagnostic procedure and should not be used as the sole means of detecting cervical cancer. Both false-positive and false-negative reports do occur. Performed By: #### L 501.6901, L500.4050 #### [facility] [address] [place], [place], [address] Path.prov.IDC-[address] [facility] Comment on above: Order Comment: Speci men Comment: [id number] Comment: Source.............CervixSpecimen Comment: Other..............Post MenopausalSpecimen Comment: No. of containers..01 ThinPrep Vial Result Comment: R87. 610 Performed By: #### L 501.6901, L500.4050 #### [facility] [address] [place], [address] PERFORM Comment Normal . [facility] Comment on above: Order Comment: Speci men Comment: [id number] Comment: Source.............CervixSpecimen Comment: Other..............Post MenopausalSpecimen Comment: No. of containers..01 ThinPrep Vial Result Comment: Verenice Saldana, Commercial Solar Sales Consultant (ASCP) Performed By: #### L 501.6901, L500.4050 #### [facility] [address] [place], [place], [address] RECOMM Comment Abnormal . [facility] Comment on above: Order Comment: Speci men Comment: [id number] Comment: Source.............CervixSpecimen Comment: Other..............Post MenopausalSpecimen Comment: No. of containers..01 ThinPrep Vial Result Comment: Sugg est follow up as clinically appropriate. Performed By: #### L 501.6901, L500.4050 #### [facility] [address] [place], [place], [address] SIGN Comment Normal . [facility] Comment on above: Order Comment: Speci men Comment: [id number] Comment: Source.............CervixSpecimen Comment: Other..............Post MenopausalSpecimen Comment: No. of containers..01 ThinPrep Vial Result Comment: Shama Matson MD, Pathologist Performed By: #### L 501.6901, L500.4050 #### [facility] [address] [place], [place], [address] Cervical or vaginal specimen microscopic examination by liquid based cytology (reportOrdered By: Pam Small on 05-25-2024 Cytology report Cyto stain.thin prep Doc (Cvx/Vag) Comment . [facility] Comment on above: Criteria not met, HP V Genotype not performed.Performed at: - [address], [place] [id number] Director: Palak Matson MD, Phone: [phone] at: [facility] [id number] [place], [place] [id number] Director: Romulo Levin MD, Phone: [phone] at: = - [address], [place] [id number] Director: Palak Matson MD, Phone: [phone] Cervical or vagninal specime n microscopic examination by cytology stain (reported asOrdered By: Pam Small on 05-25-2024 Cytology report Cyto stain Doc (Cvx/Vag) Comment . [facility] Comment on above: The Pap smear is a s creening test designed to aid in thedetection of premalignant and malignant conditions of theuterine cervix. It is not a diagnostic procedure andshould not be used as the sole means of detecting cervicalcancer. Both false-positive and false-negative reports dooccur. Commercial Solar Sales Consultant Cyto stain Nom (C vx/Vag) [ID]Ordered By: Pam Small on 05-25-2024 Pap Smear Performed By Comment . [facility] Comment on above: Verenice Saldana, Cyto logist (ASCP) Cytology report Cyto stain D oc (Cvx/Vag)Ordered By: Pam Small on 05-25-2024 Thin Prep Pap Smear Comment . [facility] Comment on above: The Pap smear is a s creening test designed to aid in thedetection of premalignant and malignant conditions of theuterine cervix. It is not a diagnostic procedure andshould not be used as the sole means of detecting cervicalcancer. Both false-positive and false-negative reports dooccur. Cytology report Cyto stain.t hin prep Doc (Cvx/Vag)Ordered By: Pam Small on 05-25-2024 HPV Genotype Special Info Comment . [facility] Comment on above: Criteria not met, HP V Genotype not performed.Performed at: - [facility] [id number] Director: Palak Matson MD, Phone: [phone] at: [facility] [address] [place], [place] [id number] Director: Romulo Levin MD, Phone: [phone] at: = - [address] [id number] Director: Palak Matson MD, Phone: [phone] Detection in cervical specim en of any of human papilloma virus (HPV) 16, 18, 31, 33,Ordered By: Pam Small on 05-25-2024 HPV 16+18+31+33+35+39+45+51 +52+56+58+59+66+68 DNA Probe+sig amp Ql (Cvx) Negative Negative [facility] Comment on above: This nucleic acid am plification test detects fourteen high-risk HPV types (16,18,31,33,35,39,45,51,52,56,58,59,66,68)without differentiation. HPV 16+18+31+33+35+39+45+51+ 52+56+58+59+66+68 DNA Probe+sig amp Ql (Cvx)Ordered By: Pam Small on 05-25-2024 Human Papillomavirus High Risk Negative Negative [facility] Comment on above: This nucleic acid am plification test detects fourteen high-risk HPV types (16,18,31,33,35,39,45,51,52,56,58,59,66,68)without differentiation. Image-guided ThinPrep PapOrd ered By: Pam Small on 05-25-2024 Pap Smear Note Comment . [facility] Comment on above: This liquid based Th inPrep(R) pap test was screened withthe use of an image guided system. Image-guided liquid-based Pa pOrdered By: Pam Small on 05-25-2024 Pap Smear Diagnosis Comment High . [facility] Comment on above: EPITHELIAL CELL ABNO RMALITY.ATYPICAL SQUAMOUS CELLS OF UNDETERMINED SIGNIFICANCE (ASC-US). Laboratory - CytologyOrdered By: Pam Small on 05-25-2024 Commercial Solar Sales Consultant Cyto stain Nom (Cvx/Vag) [ID] Comment . [facility] Comment on above: Verenice Saldana, Cyto logist (ASCP) Pathologist Cyto stain Nom (Cvx/Vag) [ID] Comment . [facility] Comment on above: Palak Matson MD, Pathologist Recommended follow-up Cyto stain Nom (Cvx/Vag) Comment High . [facility] Comment on above: Suggest follow up as clinically appropriate. Laboratory - Miscellaneous t estsOrdered By: Pma Small on 05-25-2024 Service comment (Unsp spec) [Interp] . . [facility] No Panel InformationOrdered By: Pam Small on 05-25-2024 Pap Smear Specimen Adequacy Comment . [facility] Comment on above: Satisfactory for latrice luation. Endocervical and/or squamous metaplasticcells (endocervical component) are present. Pathology report final diagnosis Narrative Comment . [facility] Comment on above: R87.610 Pathologist Cyto stain Nom ( Cvx/Vag) [ID]Ordered By: Pam Small on 05-25-2024 Pap Smear Signed Out By Comment . [facility] Comment on above: Palak Matson MD, Pathologist Pathology report final diagn osis NarrativeOrdered By: Pam Small on 05-25-2024 Pap Smear Comment (2) Comment . [facility] Comment on above: R87.610 Recommended follow-up Cyto s tain Nom (Cvx/Vag)Ordered By: Pam Small on 05-25-2024 Pap Smear Recommendation Comment High . [facility] Comment on above: Suggest follow up as clinically appropriate. Service comment (Unsp spec) [Interp]Ordered By: Pam Small on 05-25-2024 Pap Smear Comment (3) . . [facility] Meter Shop Supervisor Office Visit Reporton 05-24-2024 Meter Shop Supervisor Office Visit Report [facility] [address], [address] [place] [address] OFFICE VISIT Date of Service: 05/24/24 MR#: [id number] Acct: [id number] Name: LIGIA RIVAS Rep #: [id number] : 1960 Provider: KAYLEEN Joel ams Age/Sex: 63/F Location: [facility] Status: Signed Intake Vital Signs 04/20/24 15:31 05/24/24 12:11 05/24/24 12:15 Height 5 ft 7 in 5 ft 7 in 5 ft 7 in Weight: 251 lb 250 lb BMI 39.3 39.1 BP 142/94 H 121/77 H Blood Pressure Location Lt brachial Position Sitting Respiration 16 Pulse 87 Pulse Source Monitor Temp 98.1 F Pulse Oximetry (%) 97 Oxygen Delivery Method room air Intake 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) Allergies No Known Allergies Allergy (Verified 05/24/24 12:12) Medications ???Medication ???Instructions ???Recorded ???Confirmed ???Type albuterol sulfate 90 mcg/actuation 2 puff inhalation Q6H PRN 05/24/24 History aerosol inhaler (Ventolin HFA) shortness of breath or wheezing blood-glucose transmitter (Dexcom #1 ea 01/04/23 05/24/24 History G6 Transmitter device) trazodone 150 mg tablet 150 mg PO QHS 01/04/23 05/24/24 Hi story glipizide 10 mg tablet, extended 10 mg PO BID 08/05/23 05/24/24 His tory release 24 hr ropinirole 1 mg tablet 1 mg PO QHS 08/05/23 05/24/24 Hist ory losartan 100 1 tab PO DAILY 10/07/23 05/24/24 H istory mg-hydrochlorothiazide 12.5 mg tablet insulin lispro 100 unit/mL 5 unit (0.05 mL) subcut TID #15 mL 12/24/23 05/24/24 Rx subcutaneous pen (Humalog KwikPen (U-100) Insulin) semaglutide 2 mg/dose (8 mg/3 mL) 2 mg (0.75 mL) subcut MILLS #9 mL 05/24/24 Rx subcutaneous pen injector (Ozempic) empagliflozin 25 mg tablet 25 mg PO QDAY #30 tabs 01/10/24 Rx (Jardiance) methimazole 10 mg tablet 20 mg (2 x 10 mg) PO DAILY #60 tab s 03/14/24 05/24/24 Rx blood sugar diagnostic (OneTouch #100 ea 04/13/24 05/24/24 Rx Ultra Test strips) cholecalciferol (vitamin D3) 25 25 mcg PO QDAY 04/13/24 05/24/24 H istory mcg (1,000 unit) capsule duloxetine 60 mg capsule,delayed 60 mg PO DAILY #90 caps 04/13/24 0 05/24/24 Rx release potassium chloride 20 mEq 20 meq PO QDAY #90 tabs 04/13/24 0 05/24/24 Rx tablet,extended release(part/cryst) insulin glargine 100 unit/mL (3 14 unit subcut DAILY 04/20/24 04/0 04/18 History mL) subcutaneous pen (Lantus Solostar U-100 Insulin) Post menopausal: Yes Patient : No : No [facility] Medical History (Updated 04/20/24 @ 16:[address] Pancho Tran MD) Anxiety and depression Health care maintenance Wears contact lenses Depression Thyroid disease Insulin dependent diabetes mellitus Ambulates with cane Arthritis PONV (postoperative nausea and vomiting) High cholesterol Dietary restriction Non-smoker CPAP (continuous positive airway pressure) dependence Sleep apnea History of stress test Right rotator cuff tear Osteoarthritis of left hip Left hip pain Impingement of right shoulder Right shoulder pain Diabetic neuropathy Mild depression Hyperlipidemia GERD (gastroesophageal reflux disease) Muscle cramps Bilateral lower extremity edema Endometrial thickening on ultrasound Patellar fracture HTN (hypertension) Type 2 diabetes mellitus GITA (obstructive sleep apnea) Surgical History (Updated 04/20/24 @ 15:30 by Aida Villegas) History of total left hip replacement History of surgical procedure on eye proper using laser S/P foot surgery, left Tubal ligation status H/O section Hx of cholecystectomy H/O foot surgery Family History Father Diabetes Hypertension COPD (chronic obstructive pulmonary disease) Heart disease Kidney disease Brother Heart disease Hypertension Diabetes Pancreatic cancer Mother A-fib Heart disease Social History adopted: No household members: spouse, family and other details: has step son and custody of 3 grandchildren housing: house number of children: 3 current occupational status: employed 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 Normal [facility] EMERGENCY DEPARTMENTon 05-06 EMERGENCY DEPARTMENT [address] [address] HEALTH INFORMATION MANAGEMENT EMERGENCY DEPARTMENT : [id number] Signed Patient: LIGIA RIVAS Acct:[id number] MRUN: [id number] : 1960 Sex: F Loc: ED ADM Date: Room/Bed: DISC Date: History of Present Illness - General Chief Complaint: Injury Stated Complaint: RIGHT HAND INJURY Symptom onset: 05/02/24 HPI: Patient presents to the ED with right thumb/hand pain. She stated that she hit a gate when she was letting her dog out. Radial pulse is present movement and sensation intact. Time Seen by Provider: 05/06/24 12:08 Mode of Transport: Ambulatory - History of Present Illness Initial Comments: 63-year-old female presenting to the emergency department today with right thumb pain. Patient is a right-handed female who states about 5 days ago she was handling her largest size dog when the dog took off on her pulling her Pina. She said she thought she sprained her thumb. She has been using ice and Tylenol for the pain but it has been getting worse so she came in today for evaluation fracture. - Related Data Home Medications Medication Instructions Recorded Confirmed Naproxen [Naprosyn] 500 mg PO TID #20 tablet 05/06/24 ED PMH/Social HX/Family HX - Respiratory Hx Respiratory Disorders: No - Cardiovascular Hx Cardiac Disorders: Yes PMH--Cardiovascular: HTN - Neurological Hx Neurological Disorder: No - Endocrine PMH--Endocrine History: Diabetes Type 2 - Gastrointestinal Hx Gastrointestinal Disorders: No - Genitourinary Hx Genitourinary Disorders: No - Musculoskeletal Hx Musculoskeletal Disorders: Yes Past Surgical Hx-MS: Left Total Hip Replacement - Psychological Hx Psychosocial Problems: No - HEENT Hx Ear, Nose Throat Disorders: No - Other No Significant Past Medical History: Yes - Social History Able to Read: Yes Able to Write: Yes Smoking Status: Never Smoked Hx Chewing Tobacco Use: No Alcohol Use: Never Any recreational drug use reported?: No Feels Threatened In Home Environment: No Feels Threatened In a Relationship: No - Frederica/Gender ID What is your current Gender Identity? Choose all that Apply: Female General Exam Sepsis focused exam performed?: No - Other Other exam information: PHYSICAL EXAM GEN: Healthy appearing, well-developed, NAD. SKIN: Warm, well perfused. No skin rashes or abnormal lesions. MSK: No deformities or signs of scoliosis. There is pain on palpation over the right thenar eminence. Pain along the dorsum of the thumb. No deformity noted. NEURO: Ambulating with no limitations. Normal muscle strength and tone. No focal deficits. - Vital Signs Vital Signs 05/06/24 11:52 Temperature 97.9 F Pulse Rate [VS 85 Machine] Respiratory 16 Rate Blood Pressure 141/69 H [Left Arm] O2 Sat by Pulse 98 Oximetry(%) Upper Extremity Problem MDM - Lab Data Orders: Naproxen [Naprosyn] 500 mg PO TID #20 tablet 05/06/24 [Rx] Labs 05/06/24 12:11 RIGHT HAND MIN 3V [DIAG] Stat - Radiology Data IMPRESSIONS Hand X-Ray 05/06/24 12:11 IMPRESSION: 1. 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 2. No evidence of a fracture of the thumb. RECOMMENDATION: If clinical symptoms persist, I recommend CT or MRI of the right wrist for further evaluation. - Medical Decision Making [facility] Patient seen and examined, the clinical presentation and history is concerning for: [ Thumb sprain] Differential diagnosis includes but is not limited to: [ fracture or dislocation ] ED Course: [ three-view x-ray right hand] Prior records reviewed: none Reassessment:12:46: I discussed with patient I see no dislocation or fracture on her x-ray. I am going to put her in a thumb spica splint for a week or so and have a follow up with Orthopedics. DATA: EKG: none Reviewed pertinent findings from resulted labs: [ none] Imaging: Interpretation by radiology and independently reviewed by me. [ x-ray reviewed by me shows no fracture. I see no dislocation as well. Please see the formal radiological report.] Presenting clinical condition necessitates admission or observation consideration: No Med Rx considered but ultimately not given: [ Toradol ] Dx tests considered but ultimately not ordered: [ none ] Social determinant that may affects healthcare: [ None ] Pt?s case/impression summarized and discussed with: [ patient at bedside] Patient at time of disposition was clinically well-appearing and HDS. The patient and/or family was given the opportunity to ask questions prior to discharge, understood my verbal discussion of the plans for mahendra (more content not included)... Normal [facility] RIGHT HAND MIN 3Von 05-07-19 25 RIGHT HAND MIN 3V EXAMINATION: THREE XRAY VIEWS OF THE RIGHT HAND 05/06/2024 12:23 pm COMPARISON: None. HISTORY: ORDERING SYSTEM PROVIDED HISTORY: thumb pain FINDINGS: Three views of the right hand demonstrate normal alignment with minimal osteoarthritic changes of the carpal bones in a widening scapholunate interval. There remainder of the soft tissues and osseous structures appear unremarkable. There is no evidence of a fracture thumb. IMPRESSION: 1. 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 2. No evidence of a fracture of the thumb. RECOMMENDATION: If clinical symptoms persist, I recommend CT or MRI of the right wrist for further evaluation. Normal [facility] Absolute lymphocyte countOrd ered By: Pancho Tran on 04-20-2024 Lymphocytes Auto (Unsp spec) [#/Vol] 3.32 10*3/uL 0.83-4.51 [facility] Absolute neutrophil countOrd ered By: mansooroakesmer Tran on 04-20-2024 Neutrophils (Bld) [#/Vol] 5.9 10*3/uL 2.0-7.7 [facility] Automated lymphocyte count a s percentage of total leukocytesOrdered By: Pancho Tran on 04-20-2024 Lymphocytes/100 WBC Auto (Unsp spec) 32.1 % 19-41 [facility] BUN/creatinine ratioOrdered By: Pancho Tran on 04-20-2024 Urea nitrogen/Creatinine [Mass ratio] 23.5 mg/mg High 10-20 [facility] Basophil percentageOrdered B y: Pancho Tran on 04-20-2024 Basophils/100 WBC (Bld) 0.8 % 0-1 [facility] Bilirubin, totalOrdered By: Pancho Tran on 04-20-2024 Bilirubin [Mass/Vol] 0.38 mg/dL 0.00-1.30 [facility] CBC W/Diff, Automatedon 03-26 Absolute Lymph 3.32 X10 3/uL Normal 0.83-4.51 [facility] Comment on above: Performed By: #### L 501.6901, L500.4050 #### [facility] [address] [place], [address] Absolute Neut 5.9 X10 3/uL Normal 2.0-7.7 [facility] Comment on above: Performed By: #### L 501.6901, L500.4050 #### [facility] [address] [place], [address] Basophils/100 WBC (Bld) 0.8 % Normal 0-1 [facility] Comment on above: Performed By: #### L 501.6901, L500.4050 #### [facility] [address] [place], [address] Eosinophils/100 WBC (Bld) 2.7 % Normal 0-5 [facility] Comment on above: Performed By: #### L 501.6901, L500.4050 #### [facility] [address] [place], [address] Erythrocyte distribution width (RBC) [Ratio] 14.4 % Normal 11.6-14.6 [facility] Comment on above: Performed By: #### L 501.6901, L500.4050 #### [facility] [address] [place], [address] Hematocrit (Bld) [Volume fraction] 42.9 % Normal 37-47 [facility] Comment on above: Performed By: #### L 501.6901, L500.4050 #### [facility] [address] [place], [address] Hemoglobin (Bld) [Mass/Vol] 14.1 g/dL Normal 12.0-15.0 [facility] Comment on above: Performed By: #### L 501.6901, L500.4050 #### [facility] [address] [place], [address] IG% 0.400 Normal 0.0-0.9 [facility] Comment on above: Result Comment: IG% - Immature Granulocytes (promyelocytes, myelocytes and metamyelocytes) > 1% indicates that a LEFT SHIFT is Present. Performed By: #### L 501.6901, L500.4050 #### [facility] [address] [place], [address] Lymphocytes/100 WBC (Bld) 32.1 % Normal 19-41 [facility] Comment on above: Performed By: #### L 501.6901, L500.4050 #### [facility] [address] [place], [address] MCH (RBC) [Entitic mass] 28.3 pg Normal 27.0-32.0 [facility] Comment on above: Performed By: #### L 501.6901, L500.4050 #### [facility] [address] [place], [address] MCHC (RBC) [Mass/Vol] 32.9 g/dL Normal 32-36 [facility] Comment on above: Performed By: #### L 501.6901, L500.4050 #### [facility] [address] [place], [address] MCV (RBC) [Entitic vol] 86.1 fL Normal 81-99 [facility] Comment on above: Performed By: #### L 501.6901, L500.4050 #### [facility] [address] [place], [address] Monocytes/100 WBC (Bld) 7.4 % Normal 0-10 [facility] Comment on above: Performed By: #### L 501.6901, L500.4050 #### [facility] [address] [place], [address] Neutrophils/100 WBC (Bld) 56.6 % Normal 47-70 [facility] Comment on above: Performed By: #### L 501.6901, L500.4050 #### [facility] [address] [place], [address] Nucleated RBC (Bld) [#/Vol] 0 10*3/uL Normal 0-5 [facility] Comment on above: Performed By: #### L 501.690, L500.4050 #### [facility] [address] [place], [address] Platelet mean volume (Bld) [Entitic vol] 10.9 fL Normal 6.2-12.0 [facility] Comment on above: Performed By: #### L 501.690, L500.4050 #### [facility] [address] [place], [address] Platelets (Bld) [#/Vol] 303 10*3/uL Normal 150-450 [facility] Comment on above: Performed By: #### L 501.690, L500.4050 #### [facility] [address] [place], [address] RBC (Bld) [#/Vol] 4.98 10*6/uL Normal 4.2-5.4 [facility] Comment on above: Performed By: #### L 501.690, L500.4050 #### [facility] [address] [place], [address] RDW SD 44.9 fl High 35.1-43.9 [facility] Comment on above: Performed By: #### L 501.690, L500.4050 #### [facility] [address] [place], [address] WBC (Bld) [#/Vol] 10.3 10*3/uL Normal 4.4-11.0 [facility] Comment on above: Performed By: #### L 501.6901, L500.4050 #### [facility] [address] [place], [address] Carbon dioxide measurementOr dered By: Pancho Tran on 04-20-2024 CO2 [Moles/Vol] 24.7 mmol/L 22.0-29.0 [facility] Chloride measurementOrdered By: Pancho Tran on 04-20-2024 Chloride [Moles/Vol] 102 mmol/L 96-108 [facility] Comprehensive Metabolic Prof ilon 04-20-2024 Albumin [Mass/Vol] 4.1 g/dL Normal 3.4-4.8 [facility] Comment on above: Performed By: #### L 501.6901, L500.4050 #### [facility] [address] [place], [address] Albumin/Globulin [Mass ratio] 1.2 {ratio} Normal 0.9-2.4 [facility] Comment on above: Performed By: #### L 501.6901, L500.4050 #### [facility] [address] [place], [address] ALK PHOS 103 U/L Normal 35-104 [facility] Comment on above: Performed By: #### L 501.6901, L500.4050 #### [facility] [address] [place], [address] ALT [Catalytic activity/Vol] 23 U/L Normal <=34 [facility] Comment on above: Performed By: #### L 501.6901, L500.4050 #### [facility] [address] [place], [address] Anion gap [Moles/Vol] 12 mmol/L Normal 5-15 [facility] Comment on above: Performed By: #### L 501.6901, L500.4050 #### [facility] [address] [place], [address] AST [Catalytic activity/Vol] 24 U/L Normal <=31 [facility] Comment on above: Performed By: #### L 501.6901, L500.4050 #### [facility] [address] [place], [address] Bilirubin [Mass/Vol] 0.38 mg/dL Normal 0.00-1.30 [facility] Comment on above: Performed By: #### L 501.6901, L500.4050 #### [facility] [address] [place], [address] BUN/CRE 23.5 RATIO High 10-20 [facility] Comment on above: Performed By: #### L 501.6901, L500.4050 #### [facility] [address] [place], [address] Calcium [Mass/Vol] 9.4 mg/dL Normal 7.6-11.0 [facility] Comment on above: Performed By: #### L 501.6901, L500.4050 #### [facility] [address] [place], [address] Chloride [Moles/Vol] 102 mmol/L Normal 96-108 [facility] Comment on above: Performed By: #### L 501.6901, L500.4050 #### [facility] [address] [place], [address] CO2 [Moles/Vol] 24.7 mmol/L Normal 22.0-29.0 [facility] Comment on above: Performed By: #### L 501.6901, L500.4050 #### [facility] [address] [place], [address] Creatinine [Mass/Vol] 0.8 mg/dL Normal 0.6-1.0 [facility] Comment on above: Performed By: #### L 501.6901, L500.4050 #### [facility] [address] [place], [address] GFR/1.73 sq M.predicted among non-blacks MDRD (S/P/Bld) [Vol rate/Area] 79 mL/min/{1.73_m2} Normal >60 [facility] Comment on above: Result Comment: mL/m in/1.73m2 CKD-EPI Creatinine Equation (2020) Performed By: #### L 501.6901, L500.4050 #### [facility] [address] [place], [address] Globulin (S) [Mass/Vol] 3.4 g/dL Normal 2.2-4.2 [facility] Comment on above: Performed By: #### L 501.6901, L500.4050 #### [facility] [address] [place], [address] Glucose [Mass/Vol] 92 mg/dL Normal 70-99 [facility] Comment on above: Performed By: #### L 501.6901, L500.4050 #### [facility] [address] [place], [address] Potassium [Moles/Vol] 3.7 mmol/L Normal 3.3-5.1 [facility] Comment on above: Performed By: #### L 501.6901, L500.4050 #### [facility] [address] [place], [address] Sodium [Moles/Vol] 138 mmol/L Normal 133-145 [facility] Comment on above: Performed By: #### L 501.6901, L500.4050 #### [facility] [address] [place], [address] T PROT 7.6 g/dL Normal 5.9-8.4 [facility] Comment on above: Performed By: #### L 501.6901, L500.4050 #### [facility] [address] [place], [place], [id number] Urea nitrogen [Mass/Vol] 20 mg/dL High 4-19 [facility] Comment on above: Performed By: #### L 501.6901, L500.4050 #### [facility] [address] [place], [address] Creatinine [Moles/Vol]Ordere d By: Pancho Tran on 04-20-2024 Creatinine [Mass/Vol] 0.8 mg/dL 0.6-1.0 [facility] Eosinophil percentageOrdered By: Pancho Tran on 04-20-2024 Eosinophils/100 WBC (Bld) 2.7 % 0-5 [facility] Erythrocyte distribution wid th ratioOrdered By: Pancho Tran on 04-20-2024 Erythrocyte distribution width (RBC) [Ratio] 14.4 % 11.6-14.6 [facility] Erythrocyte distribution wid th standard deviationOrdered By: Abdulkadiroakesmer Tran on 04-20-2024 Erythrocyte distribution width (RBC) [Entitic vol] 44.9 fL High 35.1-43.9 [facility] Erythrocyte distribution width (RBC) [Ratio] 44.9 fl High 35.1-43.9 [facility] GFR/1.73 sq M.predicted dee g non-blacks MDRD (S/P/Bld) [Vol rate/Area]Ordered By: Pancho Tran on 04-20-2024 Estimated GFR (MDRD) Non-Af Amer [address] >60 [facility] Comment on above: mL/min/1.73m2 CKD-EP I Creatinine Equation (2020) Glomerular filtration rate ( GFR) estimation/1.73 sq m using serum, plasma, or whole bOrdered By: Pancho Tran on 04-20-2024 GFR/1.73 sq M.predicted among non-blacks MDRD (S/P/Bld) [Vol rate/Area] 79 mL/min/{1.73_m2} >60 [facility] Comment on above: mL/min/1.73m2 CKD-EP I Creatinine Equation (2020) Hematocrit Auto (Bld) [Volum e fraction]Ordered By: Pancho Tran on 04-20-2024 Hematocrit (Bld) [Volume fraction] 42.9 % 37-47 [facility] Hemoglobin measurementOrdere d By: Pancho Tran on 04-20-2024 Hemoglobin (Bld) [Mass/Vol] 14.1 g/dL 12.0-15.0 [facility] Immature granulocytes/100 WB C Auto (Bld)Ordered By: Pancho Tran on 04-20-2024 Immature granulocytes/100 WBC (Bld) 0.400 % 0.0-0.9 [facility] Comment on above: IG% - Immature Granu locytes (promyelocytes, myelocytes and metamyelocytes) > 1% indicates that a LEFT SHIFT is Present. Internal Medicine Office Vis iton 04-20-2024 Internal Medicine Office Visit [facility] [place] [address] [place] [address] OFFICE VISIT Date of Service: 04/20/24 MR#: [id number] Acct: [id number] Name: LIGIA RIVAS Rep #: [id number] : 1960 Provider: Dr. 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 Is patient in pain?: No Allergies No Known Allergies Allergy (Verified 04/20/24 15:27) Medications ???Medication ???Instructions ???Recorded ???Confirmed ???Type albuterol sulfate 90 mcg/actuation 2 puff inhalation Q6H PRN 03/29/ 22 02/27/25 History aerosol inhaler (Ventolin HFA) shortness of breath or wheezing blood-glucose transmitter (Dexcom #1 ea 01/04/23 04/20/24 History G6 Transmitter device) trazodone 150 mg tablet 150 mg PO QHS 01/04/23 04/20/24 Hi story glipizide 10 mg tablet, extended 10 mg PO BID 08/05/23 04/20/24 His tory release 24 hr ropinirole 1 mg tablet 1 mg PO QHS 08/05/23 04/20/24 Hist ory losartan 100 1 tab PO DAILY 10/07/23 04/20/24 H istory mg-hydrochlorothiazide 12.5 mg tablet insulin lispro 100 unit/mL 5 unit (0.05 mL) subcut TID #15 mL 12/24/23 04/20/24 Rx subcutaneous pen (Humalog KwikPen (U-100) Insulin) semaglutide 2 mg/dose (8 mg/3 mL) 2 mg (0.75 mL) subcut MILLS #9 mL 04/20/24 Rx subcutaneous pen injector (Ozempic) empagliflozin 25 mg tablet 25 mg PO QDAY #30 tabs 01/10/24 Rx (Jardiance) methimazole 10 mg tablet 20 mg (2 x 10 mg) PO DAILY #60 tab s 03/14/24 04/20/24 Rx blood sugar diagnostic (OneTouch #100 ea 04/13/24 04/20/24 Rx Ultra Test strips) cholecalciferol (vitamin D3) 25 25 mcg PO QDAY 04/13/24 04/20/24 H istory mcg (1,000 unit) capsule duloxetine 60 mg capsule,delayed 60 mg PO DAILY #90 caps 04/13/24 0 04/20/24 Rx release potassium chloride 20 mEq 20 meq PO QDAY #90 tabs 04/13/24 0 04/20/24 Rx tablet,extended release(part/cryst) insulin glargine 100 unit/mL (3 14 unit subcut DAILY 04/20/24 His tory mL) subcutaneous pen (Lantus Solostar U-100 Insulin) [facility] Medical History (Updated 04/20/24 @ 16:[address] Pancho Tran MD) Anxiety and depression Health care maintenance Wears contact lenses Depression Thyroid disease Insulin dependent diabetes mellitus Ambulates with cane Arthritis PONV (postoperative nausea and vomiting) High cholesterol Dietary restriction Non-smoker CPAP (continuous positive airway pressure) dependence Sleep apnea History of stress test Right rotator cuff tear Osteoarthritis of left hip Left hip pain Impingement of right shoulder Right shoulder pain Diabetic neuropathy Mild depression Hyperlipidemia GERD (gastroesophageal reflux disease) Muscle cramps Bilateral lower extremity edema Endometrial thickening on ultrasound Patellar fracture HTN (hypertension) Type 2 diabetes mellitus GITA (obstructive sleep apnea) Surgical History (Updated 04/20/24 @ 15:30 by Aida Villegas) History of total left hip replacement History of surgical procedure on eye proper using laser S/P foot surgery, left Tubal ligation status H/O section Hx of cholecystectomy H/O foot surgery Family History Father Diabetes Hypertension COPD (chronic obstructive pulmonary disease) Heart disease Kidney disease Brother Heart disease Hypertension Diabetes Pancreatic cancer Mother A-fib Heart disease Social History household members: other details: has step son and custody of 3 grandchildren Smoking Status: Never smoker Electronic Cigarette Use: not used second hand exposure: No alcohol intake: never substance use type: does not use caffeine: Yes seatbelt use: sometimes do you feel safe at home: Yes additional social history: - Dionisio HPI HPI 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 No acute concerns at this time. History of hypertension, currently on losartan hydrochlorothiazide. She states that she takes her medication every morning but does not routinely check her numbers at home. Also has not been as active lately. No chest pain, palpitation or shortness of breath. History of anxi (more content not included)... Normal [facility] - Chemistry and C hemistry - challengeOrdered By: Pancho Tran on 04-20-2024 AST [Catalytic activity/Vol] 24 U/L <32 [facility] Lymphocytes Auto (Unsp spec) [#/Vol]Ordered By: Pancho Tran on 04-20-2024 Lymphocytes (Bld) [#/Vol] 3.32 10*3/uL 0.83-4.51 [facility] Lymphocytes/100 WBC Auto (Un sp spec)Ordered By: Pancho Tran on 04-20-2024 Lymphocytes/100 WBC (Bld) 32.1 % 19-41 [facility] MCV (mean corpuscular volume ) determinationOrdered By: Pancho Tran on 04-20-2024 MCV (RBC) [Entitic vol] 86.1 fL 81-99 [facility] Mean corpuscular hemoglobin (MCH) determinationOrdered By: Pancho Tran on 04-20-2024 MCH (RBC) [Entitic mass] 28.3 pg 27.0-32.0 [facility] Mean corpuscular hemoglobin concentration (MCHC) determinationOrdered By: Pancho Tran on 04-20-2024 MCHC (RBC) [Mass/Vol] 32.9 g/dL 32-36 [facility] Mean platelet volume determi nationOrdered By: Pancho Tran on 04-20-2024 Platelet mean volume (Bld) [Entitic vol] 10.9 fL 6.2-12.0 [facility] Monocyte percentageOrdered B y: Pancho Tran on 04-20-2024 Monocytes/100 WBC (Bld) 7.4 % 0-10 [facility] Neutrophil percentageOrdered By: Pancho Tran on 04-20-2024 Neutrophils/100 WBC (Bld) 56.6 % 47-70 [facility] Nucleated red blood cell per centageOrdered By: Pancho Tran on 04-20-2024 Nucleated RBC/100 WBC (Bld) [Ratio] 0 % 0-5 [facility] Platelet countOrdered By: Ronaldo Tran on 04-20-2024 Platelets (Bld) [#/Vol] 303 10*3/uL 150-450 [facility] RBC Auto (Bld) [#/Vol]Ordere d By: Pnacho Tran on 04-20-2024 RBC (Bld) [#/Vol] 4.98 10*6/uL 4.2-5.4 [facility] Serum globulin measurementOr dered By: Pancho Tran on 04-20-2024 Globulin (S) [Mass/Vol] 3.4 g/dL 2.2-4.2 [facility] Serum glucose measurement (m ass/volume)Ordered By: Pancho Tran on 04-20-2024 Glucose [Mass/Vol] 92 mg/dL 70-99 [facility] Serum or plasma alanine webber otransferase (ALT) measurementOrdered By: Pancho Tran on 04-20-2024 ALT [Catalytic activity/Vol] 23 U/L <35 [facility] Serum or plasma albumin ricky urement (mass/volume)Ordered By: Pancho Tran on 04-20-2024 Albumin [Mass/Vol] 4.1 g/dL 3.4-4.8 [facility] Serum or plasma albumin/glob ulin mass ratioOrdered By: Pancho Tran on 04-20-2024 Albumin/Globulin [Mass ratio] 1.2 {ratio} 0.9-2.4 [facility] Serum or plasma alkaline usman sphatase measurementOrdered By: Pancho Tran on 04-20-2024 ALP [Catalytic activity/Vol] 103 U/L 35-104 [facility] Serum or plasma anion gap de termination (moles/volume)Ordered By: Pancho Tran on 04-20-2024 Anion gap [Moles/Vol] 12 mmol/L 5-15 [facility] Serum or plasma calcium ricky urement (mass/volume)Ordered By: Pancho Tran on 04-20-2024 Calcium [Mass/Vol] 9.4 mg/dL 7.6-11.0 [facility] Serum or plasma creatinine m easurement (moles/volume)Ordered By: Pancho Tran on 04-20-2024 Creatinine [Moles/Vol] 0.8 mg/dL 0.6-1.0 [facility] Serum or plasma potassium me asurementOrdered By: Pancho Tran on 04-20-2024 Potassium [Moles/Vol] 3.7 mmol/L 3.3-5.1 [facility] Serum or plasma sodium measu rement (moles/volume)Ordered By: Ronaldojose alberto Tran on 04-20-2024 Sodium [Moles/Vol] 138 mmol/L 133-145 [facility] Serum or plasma urea nitroge n measurement (mass/volume)Ordered By: Ronaldomansoorbernardinoesmer Johnsonodryluke on 04-20-2024 Urea nitrogen [Mass/Vol] 20 mg/dL High 4-19 [facility] Total proteinOrdered By: Jonas howell Alexdoryluke on 04-20-2024 Protein [Mass/Vol] 7.6 g/dL 5.9-8.4 [facility] White blood cell (WBC) count Ordered By: Truongesmer Johnsondoryluke on 04-20-2024 WBC (Bld) [#/Vol] 10.3 10*3/uL 4.4-11.0 [facility] Endocrinology Visit Reporton 04-13-2024 Endocrinology Visit Report [facility] [address] [place] [address] OFFICE VISIT Date of Service: 04/13/24 MR#: [id number] Acct: [id number] Name: LIGIA RIVAS Rep #: [id number] : 1960 Provider: ARCADIO dodd Age/Sex: 63/F Location: [facility] [place] Status: Signed Intake Vital Signs 01/10/24 10:09 04/13/24 09:43 Height 5 ft 7 in 5 ft 7 in Weight: 248 lb 6 oz 249 lb BMI 38.9 38.9 BP 131/82 H 142/85 H Blood Pressure Location Rt brachial Lt brachial Position Sitting Sitting Pulse 87 81 Pulse Source Monitor Monitor Pulse Oximetry (%) 98 97 Oxygen Delivery Method room air room air Intake Visit Reasons: 3 M FU Chief Complaint: f/u diabetes Is patient in pain?: No Allergies No Known Allergies Allergy (Verified 04/13/24 09:46) Medications ???Medication ???Instructions ???Recorded ???Confirmed ???Type albuterol sulfate 90 mcg/actuation 2 puff inhalation Q6H PRN 04/13/24 History aerosol inhaler (Ventolin HFA) shortness of breath or wheezing blood-glucose transmitter (Dexcom #1 ea 01/04/23 04/13/24 History G6 Transmitter device) trazodone 150 mg tablet 150 mg PO QHS 01/04/23 04/13/24 Hi story glipizide 10 mg tablet, extended 10 mg PO BID 08/05/23 04/13/24 His tory release 24 hr ropinirole 1 mg tablet 1 mg PO QHS 08/05/23 04/13/24 Hist ory losartan 100 1 tab PO DAILY 10/07/23 04/13/24 H istory mg-hydrochlorothiazide 12.5 mg tablet insulin glargine 100 unit/mL (3 30 unit (0.3 mL) subcut DAILY #9 m L 12/24/23 04/13/24 Rx mL) subcutaneous pen (Lantus Solostar U-100 Insulin) insulin lispro 100 unit/mL 5 unit (0.05 mL) subcut TID #15 mL 12/24/23 04/13/24 Rx subcutaneous pen (Humalog KwikPen (U-100) Insulin) semaglutide 2 mg/dose (8 mg/3 mL) 2 mg (0.75 mL) subcut MILLS #9 mL 04/13/24 Rx subcutaneous pen injector (Ozempic) empagliflozin 25 mg tablet 25 mg PO QDAY #30 tabs 01/10/24 Rx (Jardiance) methimazole 10 mg tablet 20 mg (2 x 10 mg) PO DAILY #60 tab s 03/14/24 04/13/24 Rx blood sugar diagnostic (OneTouch #100 ea 04/13/24 04/13/24 Rx Ultra Test strips) cholecalciferol (vitamin D3) 25 25 mcg PO QDAY 04/13/24 04/13/24 H istory mcg (1,000 unit) capsule duloxetine 60 mg capsule,delayed 60 mg PO DAILY #90 caps 04/13/24 0 04/13/24 Rx release potassium chloride 20 mEq 20 meq PO QDAY #90 tabs 04/13/24 0 04/13/24 Rx tablet,extended release(part/cryst) [facility] Medical History Wears contact lenses Depression Thyroid disease Insulin dependent diabetes mellitus Ambulates with cane Arthritis PONV (postoperative nausea and vomiting) High cholesterol Dietary restriction Non-smoker CPAP (continuous positive airway pressure) dependence Sleep apnea History of stress test Right rotator cuff tear Osteoarthritis of left hip Left hip pain Impingement of right shoulder Right shoulder pain Diabetic neuropathy Mild depression Hyperlipidemia GERD (gastroesophageal reflux disease) Muscle cramps Bilateral lower extremity edema Endometrial thickening on ultrasound Patellar fracture HTN (hypertension) Type 2 diabetes mellitus GITA (obstructive sleep apnea) Surgical History History of surgical procedure on eye proper using laser S/P foot surgery, left Tubal ligation status H/O section Hx of cholecystectomy H/O foot surgery Family History Father Diabetes Hypertension COPD (chronic obstructive pulmonary disease) Heart disease Kidney disease Brother Heart disease Hypertension Diabetes Pancreatic cancer Mother A-fib Heart disease Social History household members: other details: has step son and custody of 3 grandchildren Smoking Status: Never smoker Electronic Cigarette Use: not used second hand exposure: No alcohol intake: never substance use type: does not use caffeine: Yes seatbelt use: sometimes do you feel safe at home: Yes additional social history: - Dionisio HPI HPI Chief Complaint: f/u diabetes Details: LIGIA RIVAS, is a 63 F who presents to the office today for evaluation and management of diabetes. A1C today is 7.0%, increased from 12/31/23 at 6.2%. Weight is stable. Currently taking Ozempic 2 mg qweek, Jardiance 25 mg once daily, glipizide 10 mg BID, and Lantus 10 u once daily. She admits that she has been off track with her diet. She has had a yeast infection since blood sugar has increased. She denies any significant episode of hypoglycemia that has required assistance from others. Unf (more content not included)... Normal [facility] - Hematology and Cell countsOrdered By: Caitlin Tilley on 04-13-2024 HbA1c (Bld) [Mass fraction] 7.0 % High 4.2-6.3 [facility] Direct serum free thyroxine (FT4) measurementOrdered By: Caitlin Tilley on 01-10-2024 Free T4 [Mass/Vol] 0.95 ng/dL 0.76-1.46 [facility]on 01-10-2024 Endocrinology Visit Report [facility] [address] [place] [address] OFFICE VISIT Date of Service: 01/10/24 MR#: [id number] Acct: [id number] Name: LIGIA RIVAS Rep #: [id number] : 1960 Provider: ARCADIO dodd Age/Sex: 63/F Location: [facility] [place] Status: Signed Intake Vital Signs 10/07/23 09:50 10/19/23 18:01 01/10/24 10:09 Height 5 ft 7 in 5 ft 7 in 5 ft 7 in Weight: 248 lb 6 oz BMI 38.9 BP 131/82 H Blood Pressure Location Rt brachial Position Sitting Pulse 87 Pulse Source Monitor Pulse Oximetry (%) 98 Oxygen Delivery Method room air Intake Visit Reasons: 3 M FU Chief Complaint: f/u diabetes Allergies No Known Allergies Allergy (Verified 12/01/23 09:38) Medications ???Medication ???Instructions ???Recorded ???Confirmed ???Type albuterol sulfate 90 mcg/actuation 2 puff inhalation Q6H PRN 05/20/21 01/10/24 History aerosol inhaler (Ventolin HFA) shortness of breath or wheezing duloxetine 60 mg capsule,delayed 60 mg PO DAILY 05/20/21 01/10/24 History release blood-glucose transmitter (Dexcom #1 ea 01/04/23 01/10/24 History G6 Transmitter device) trazodone 150 mg tablet 150 mg PO QHS 01/04/23 01/10/24 History glipizide 10 mg tablet, extended 10 mg PO BID 08/05/23 01/10/24 History release 24 hr potassium chloride 20 mEq 20 meq PO QDAY 08/05/23 01/10/24 History tablet,extended release(part/cryst) ropinirole 1 mg tablet 1 mg PO QHS 08/05/23 01/10/24 History tizanidine 4 mg tablet 4 mg PO BID PRN muscle spasticity 08/05/23 01/10/24 History losartan 100 1 tab PO DAILY 10/07/23 01/10/24 History mg-hydrochlorothiazide 12.5 mg tablet methimazole 10 mg tablet 20 mg (2 x 10 mg) PO DAILY #60 tabs 10/07/23 01/10/24 Rx cholecalciferol (vitamin D3) 1,250 1,250 mcg PO QWEEK #12 caps 10/08/23 01/10/24 Rx mcg (50,000 unit) capsule acetaminophen 500 mg tablet 1,000 mg (2 x 500 mg) PO Q6H #100 10/20/23 01/10/24 Rx tabs insulin glargine 100 unit/mL (3 30 unit (0.3 mL) subcut DAILY #9 mL 12/24/23 01/10/24 Rx mL) subcutaneous pen (Lantus Solostar U-100 Insulin) insulin lispro 100 unit/mL 5 unit (0.05 mL) subcut TID #15 mL 12/24/23 01/10/24 Rx subcutaneous pen (Humalog KwikPen (U-100) Insulin) semaglutide 2 mg/dose (8 mg/3 mL) 2 mg (0.75 mL) subcut MILLS #9 mL 12/24/23 01/10/24 Rx subcutaneous pen injector (Ozempic) empagliflozin 25 mg tablet 25 mg PO QDAY #30 tabs 01/10/24 01/10/24 Rx (Jardiance) PFSH Medical History Wears contact lenses Depression Thyroid disease Insulin dependent diabetes mellitus Ambulates with cane Arthritis PONV (postoperative nausea and vomiting) High cholesterol Dietary restriction Non-smoker CPAP (continuous positive airway pressure) dependence Sleep apnea History of stress test Right rotator cuff tear Osteoarthritis of left hip Left hip pain Impingement of right shoulder Right shoulder pain Diabetic neuropathy Mild depression Hyperlipidemia GERD (gastroesophageal reflux disease) Muscle cramps Bilateral lower extremity edema Endometrial thickening on ultrasound Patellar fracture HTN (hypertension) Type 2 diabetes mellitus GITA (obstructive sleep apnea) Surgical History History of surgical procedure on eye proper using laser S/P foot surgery, left Tubal ligation status H/O section Hx of cholecystectomy H/O foot surgery Family History Father Diabetes Hypertension COPD (chronic obstructive pulmonary disease) Heart disease Kidney disease Brother Heart disease Hypertension Diabetes Pancreatic cancer Mother A-fib Heart disease Social History household members: other details: has step son and custody of 3 grandchildren Smoking Status: Never smoker Electronic Cigarette Use: not used second hand exposure: No alcohol intake: never substance use type: does not use caffeine: Yes seatbelt use: sometimes do you feel safe at home: Yes additional social history: - Dionisio HPI HPI Chief Complaint: f/u diabetes Details: LIGIA RIVAS, is a 63 F who presents to the office today for evaluation and management of diabetes and hyperthyroid. A1C today is 6.2%, improved from 10/07/23 at 6.8%. She has lost an additional 5 lbs. Currently taking Ozempic 2 mg qweek- tolerating well, glipizide 10 mg BID, Lantus 18 u once daily, and Humalog as needed for elevated blood sugars. CGM tracings reviewed- she is having occasional lows during sleeping hours, she is having post meal elevations with breakfast. Denies any significant ep (more content not included)... Normal [facility] Free T3on 01-10-2024 Free T3 [Mass/Vol] 2.9 pg/mL Normal 2.18-3.98 [facility] Comment on above: Performed By: #### L 501.34414, L501.9520, L506.0400 #### [facility] [address] [place], [address] Free [id number] By: Sury on 01-10-2024 Free Triiodothyronine (T3) pg/dL 2.9 pg/mL 2.18-3.98 [facility] - Hematology and Cell countson 01-10-2024 HbA1c (Bld) [Mass fraction] 6.2 % 4.2-6.3 [facility] T4 Free Directon 01-10-2024 T4 FREE DIRECT 0.95 ng/dL Normal 0.76-1.46 [facility] Comment on above: Performed By: #### L 501.84361, L501.9520, L506.0400 #### [facility] [address] [place], [address] TSH QnOrdered By: Caitlin dodd on 01-10-2024 Thyroid Stimulating Hormone (TSH) 0.051 uIU/mL Low 0.358-3.740 [facility] Thyroid Stim Hormone (TSH)on 01-10-2024 TSH 0.051 uIU/mL Low 0.358-3.740 [facility] Comment on above: Performed By: #### L 501.14818, L501.9520, L506.0400 #### [facility] [address] 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 ARCADIO Morris Status: DEP AMB Study: HIP, UNI W/ Pelvis 2-3 Views Date of Exam: 11/15 Exam# [id number] Ordering Dr: Gavin Bhakta DO [id number] STUDY: X-RAY - PELVIS AND LEFT HIP REASON FOR EXAM: Female, 62 years old. pain TECHNIQUE: 3 views of the pelvis and hip. COMPARISON: 09/20/2023 FINDINGS: There is a non-specific bowel gas pattern. Normal visualized soft tissue structures. Normal bilateral iliac wings, sacroiliac joints and visualized sacrum. Normal bilateral superior and inferior pubic rami. Normal pubic symphysis. Normal bilateral ischial tuberosities. Interval left total hip arthroplasty. The prosthesis appears located. No ostial lysis to suggest loosening.. RAD/HIP, UNI W/ Pelvis 2-3 Views IMPRESSION: Interval left total hip arthroplasty. Electronically Signed: Fabiano Arevalo MD at 11:56 EDT , CC: ARCADIO GARCES. Sandra Meredith; Dr. Gavin Bhakta DO Picker Tender: Signed Normal [facility] Orthopedic Visit Reporton Orthopedic Visit Report [facility] [address] [place] [address] OFFICE VISIT Date of Service: 12/01/23 MR#: [id number] Acct: [id number] Name: LIGIA RIVAS Rep #: [id number] : 1960 Provider: Dr. Gavin melton DO Age/Sex: 62/F Location: [facility] Status: Signed Intake Vital Signs 08/05/23 11:00 10/19/23 18:01 Height 5 ft 7 in 5 ft 7 in Intake Visit Reasons: left hip Is patient in pain?: No Allergies No Known Allergies Allergy (Verified 12/01/23 09:38) Medications ???Medication ???Instructions ???Recorded ???Confirmed ???Type albuterol sulfate 90 mcg/actuation 2 puff inhalation Q6H PRN 05/20/21 12/01/23 History aerosol inhaler (Ventolin HFA) shortness of breath or wheezing duloxetine 60 mg capsule,delayed 60 mg PO DAILY 05/20/21 12/01/23 History release blood-glucose transmitter (Dexcom #1 ea 01/04/23 12/01/23 History G6 Transmitter device) insulin lispro 100 unit/mL 1 sliding scale dose subcut 01/04/23 12/01/23 History subcutaneous pen (Humalog KwikPen USEASDIRECTD (U-100) Insulin) trazodone 150 mg tablet 150 mg PO QHS 01/04/23 12/01/23 History glipizide 10 mg tablet, extended 10 mg PO BID 08/05/23 12/01/23 History release 24 hr insulin glargine 100 unit/mL (3 30 unit (0.3 mL) subcut DAILY #9 mL 08/05/23 12/01/23 Rx mL) subcutaneous pen (Lantus Solostar U-100 Insulin) potassium chloride 20 mEq 20 meq PO QDAY 08/05/23 12/01/23 History tablet,extended release(part/cryst) ropinirole 1 mg tablet 1 mg PO QHS 08/05/23 12/01/23 History tizanidine 4 mg tablet 4 mg PO BID PRN muscle spasticity 08/05/23 12/01/23 History semaglutide 2 mg/dose (8 mg/3 mL) 2 mg subcut MILLS 10/06/23 12/01/23 History subcutaneous pen injector (Ozempic) losartan 100 1 tab PO DAILY 10/07/23 12/01/23 History mg-hydrochlorothiazide 12.5 mg tablet methimazole 10 mg tablet 20 mg (2 x 10 mg) PO DAILY #60 tabs 10/07/23 12/01/23 Rx cholecalciferol (vitamin D3) 1,250 1,250 mcg PO QWEEK #12 caps 10/08/23 12/01/23 Rx mcg (50,000 unit) capsule acetaminophen 500 mg tablet 1,000 mg (2 x 500 mg) PO Q6H #100 10/20/23 12/01/23 Rx tabs PFSH Medical History Wears contact lenses Depression Thyroid disease Insulin dependent diabetes mellitus Ambulates with cane Arthritis PONV (postoperative nausea and vomiting) High cholesterol Dietary restriction Non-smoker CPAP (continuous positive airway pressure) dependence Sleep apnea History of stress test Right rotator cuff tear Osteoarthritis of left hip Left hip pain Impingement of right shoulder Right shoulder pain Diabetic neuropathy Mild depression Hyperlipidemia GERD (gastroesophageal reflux disease) Muscle cramps Bilateral lower extremity edema Endometrial thickening on ultrasound Patellar fracture HTN (hypertension) Type 2 diabetes mellitus GITA (obstructive sleep apnea) Surgical History History of surgical procedure on eye proper using laser S/P foot surgery, left Tubal ligation status H/O section Hx of cholecystectomy H/O foot surgery Family History Father Diabetes Hypertension COPD (chronic obstructive pulmonary disease) Heart disease Kidney disease Brother Heart disease Hypertension Diabetes Pancreatic cancer Mother A-fib Heart disease Social History household members: other details: has step son and custody of 3 grandchildren Smoking Status: Never smoker Electronic Cigarette Use: not used second hand exposure: No alcohol intake: never substance use type: does not use caffeine: Yes seatbelt use: sometimes do you feel safe at home: Yes additional social history: - Dionisio HPI left hip Details: This documentation accurately reflects the service provided and the decisions made by me, Dr. Gavin Bhakta, DO 12/01/23 0818. Part of today???s visit was documented by [ ], acting as scribe. LIGIA RIVAS is a 62 year old F here today for s/p CT-guided Makoplasty assisted left total hip arthroplasty dis 10/19/23. Patient notes that she is doing well. Patient denies any pain or soreness. 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 She denies any pain medication. Ortho Exam General General: Yes no acute distress Neurologic: Yes alert and Yes oriented x3 Psychologic: Yes reasonable and appropriate Left Hip Skin/Wound: Yes healed, No Ecchymosis, No soft tissue swelling and No Erythema Hip: Absent eccymosis, soft tissue swelling or erythema HIP: Incision well-healed no signs of infection or DVT neurovascular intact left (more content not included)... Normal [facility] XR HIP LEFT 2-3 VIEWSon 05-24 XR HIP LEFT 2-3 VIEWS EXAM: XR HIP LEFT 2-3 VIEWS, 06/16/2023 15:55 PM COMPARISON: No prior studies available for comparison. CLINICAL INDICATIONS: left hip pain RELEVANT CLINICAL HISTORY: M25.552:Left hip pain Standing AP pelvis/standing AP left hip/true lateral left hip-all views with [address] close to affected hip at the level of the bone w/o obscuring bone detail.; FINDINGS: 3 images obtained. Soft Tissue: There is no obvious soft tissue swelling. Bone: No acute osseous abnormality is identified. Hip: Advanced osteoarthritis of the left hip. Severe superior joint space narrowing is associated with subchondral sclerosis and cyst formation. IMPRESSION: Advanced left hip osteoarthritis. No acute osseous abnormality. Normal [facility] XR Hip - left 2 Viewson 05-24 IMPRESSION: Advanced left hip osteoarthritis. No acute osseous abnormality. OLOGY EXAM: XR HIP LEFT 2- 3 VIEWS, 06/16/2023 15:55 PM COMPARISON: No prior studies available for comparison. CLINICAL INDICATIONS: left hip pain RELEVANT CLINICAL HISTORY: M25.552:Left hip pain Standing AP pelvis/standing AP left hip/true lateral left hip-all views with [address]. [address] close to affected hip at the level of the bone w/o obscuring bone detail.; FINDINGS: 3 images obtained. Soft Tissue: There is no obvious soft tissue swelling. Bone: No acute osseous abnormality is identified. Hip: Advanced osteoarthritis of the left hip. Severe superior joint space narrowing is associated with subchondral sclerosis and cyst formation. RADIOLOGY Juno Kirk MD - 06/16/2023 EXAM: XR HIP LEFT 2-3 VIEWS, 06/16/2023 15:55 PM COMPARISON: No prior studies available for comparison. CLINICAL INDICATIONS: left hip pain RELEVANT CLINICAL HISTORY: M25.552:Left hip pain Standing AP pelvis/standing AP left hip/true lateral left hip-all views with 30 mm [address] marker. Please place close to affected hip at the level of the bone w/o obscuring bone detail.; FINDINGS: 3 images obtained. Soft Tissue: There is no obvious soft tissue swelling. Bone: No acute osseous abnormality is identified. Hip: Advanced osteoarthritis of the left hip. Severe superior joint space narrowing is associated with subchondral sclerosis and cyst formation. IMPRESSION IMPRESSION: Advanced left hip osteoarthritis. No acute osseous abnormality. [facility] Radiology Study observation (narrative) [facility] XR Hip - left 2 ViewsOrdered By: Juno Kirk on 06-16-2023 [facility] Work Phone: Bacteria Ur Culton 3 Bacteria identified Cx Nom (U) ORGANISM ID: 1 50,000-<100,000 CFU/ml Mixed microbiota No further workup. Mixed microbiota can be due to???urine???contamina tion with skin bacteria at time of collection or presence of a long-term urinary catheter. If a new culture is needed, please consider re-education of the patient on proper midstream collection technique or straight catheterization for???urine???collecti on. Normal [facility] Comment on above: Performed By: #### 6 30-4 #### [facility] CLIA [id number] [address] [place] [address] [place] HbA1c (Bld)on 05-18-2022 Average glucose Estimated from glycated hemoglobin (Bld) [Mass/Vol] 243 mg/dL Normal [facility] Comment on above: Order Comment: Harry cummings Type: BLOOD SPECIMEN Ordering Facility: [facility] Address: [address] [place] [address] Result Comment: eAG: (Estimated average glucose) is a calculated value from HgbA1c and is sales representative printing supplies of the average blood glucose level in the last 2-3 month period. Performed By: #### 5 5454-3 #### [facility] CLIA [id number] [address] [place] [address] [place] HbA1c (Bld) [Mass fraction] 10.1 % High 4.3-5.6 [facility] Comment on above: Order Comment: Harry cummings Type: BLOOD SPECIMEN Ordering Facility: [facility] Address: [address] [place] [address] Result Comment: [place] Diabetes Association guidelines indicate that patients with HgbA1c in the range 5.7-6.4% are at increased risk for development of diabetes, and intervention by lifestyle modification may be beneficial. HgbA1c greater or equal to 6.5% is considered diagnostic of diabetes. Performed By: #### 5 5454-3 #### [facility] CLIA [id number] [address] [place] [address] [place] HbA1c (Bld)on 03-20-2022 Average glucose Estimated from glycated hemoglobin (Bld) [Mass/Vol] 209 mg/dL Normal [facility] Comment on above: Order Comment: Harry cummings Type: BLOOD SPECIMEN Ordering Facility: [facility] Address: [address] [place] [address] Result Comment: eAG: (Estimated average glucose) is a calculated value from HgbA1c and is sales representative printing supplies of the average blood glucose level in the last 2-3 month period. Performed By: #### 5 5454-3 #### [facility] CLIA [id number] [address] [place] [address] [place] HbA1c (Bld) [Mass fraction] 8.9 % High 4.3-5.6 [facility] Comment on above: Order Comment: Harry cummings Type: BLOOD SPECIMEN Ordering Facility: [facility] Address: [address] [place] [address] Result Comment: Amer [place] Diabetes Association guidelines indicate that patients with HgbA1c in the range 5.7-6.4% are at increased risk for development of diabetes, and intervention by lifestyle modification may be beneficial. HgbA1c greater or equal to 6.5% is considered diagnostic of diabetes. Performed By: #### 5 5454-3 #### [facility] CLIA [id number] [address] [place] [address] [place] HbA1c (Bld)on 11-17-2021 Average glucose Estimated from glycated hemoglobin (Bld) [Mass/Vol] 249 mg/dL Normal [facility] Comment on above: Order Comment: Harry cummings Type: BLOOD SPECIMEN Ordering Facility: [facility] Address: [facility] [place] [address] Result Comment: eAG: (Estimated average glucose) is a calculated value from HgbA1c and is sales representative printing supplies of the average blood glucose level in the last 2-3 month period. Performed By: #### 5 5454-3 #### [facility] CLIA [id number] [address] [place] [address] [place] HbA1c (Bld) [Mass fraction] 10.3 % High 4.3-5.6 [facility] Comment on above: Order Comment: Speci men Type: BLOOD SPECIMEN Ordering Facility: [facility] Address: [address] [place] [address] Result Comment: Amer [place] Diabetes Association guidelines indicate that patients with HgbA1c in the range 5.7-6.4% are at increased risk for development of diabetes, and intervention by lifestyle modification may be beneficial. HgbA1c greater or equal to 6.5% is considered diagnostic of diabetes. Performed By: #### 5 5454-3 #### [facility] CLIA [id number] [address] [place] [address] [place] Hemoglobin A1con 03-07-2020 HbA1c (Bld) [Mass fraction] 9.5 % High 4.3-5.6 [facility] Comment on above: Performed By: #### H BA1C #### [facility] Routine Lab [address] [place] [address] HbA1c (Bld) [Mass fraction] 226 mg/dL Normal [facility] Comment on above: Performed By: #### H BA1C #### [facility] Routine Lab [address] [place] [address] Hemoglobin A1con 09-04-2019 HbA1c (Bld) [Mass fraction] 8.1 % High 4.3-5.6 [facility] Comment on above: Performed By: #### H BA1C #### [facility] Routine Lab [address] [place], [place] [address] HbA1c (Bld) [Mass fraction] 186 mg/dL Normal [facility] Comment on above: Performed By: #### H BA1C #### [facility]ine Lab [address] [place], [place] [address] ANAEROBEon 02-09-2018 ANAEROBE NO ANAEROBES ISOLATE D. NO ORGANISMS SEEN ORGANISM 1: NO GROWTH Normal [facility] Comment on above: Performed By: #### M 160.1999 #### [facility] [address] [place] [address] CHEST-ONE VIEW ONLY - CXR1on 01-28-2018 CHEST-ONE VIEW ONLY - CXR1 [place] [address] Name: LIGIA RIVAS Phys: MILA HOROWITZ D.O. : 64 Age: 57 Sex: F Acct: [id number] Loc: [facility] Exam Date: 01/28/18 Status: [facility] Radiology No.: [id number] Unit Number: [id number] Exam # Type/Exam [id number] RAD / CHEST-ONE VIEW ONLY - CXR1 PROCEDURE: Chest radiograph. Single frontal view HISTORY: Decreased oxygen saturation. Shortness of breath COMPARISON: None FINDINGS: The heart and mediastinal silhouette are normal. There is minimal airspace opacity in the left lower lung. No pulmonary vasculature congestion or visible pleural fluid. Bones are unremarkable. IMPRESSION: Minimal airspace opacity in left lower lung which could relate to mild pneumonia or atelectasis Professional interpretation provided by [facility] [place], [place] on RAC-PC-60. Thank you for this referral. < > Reported By: CATHY MAN M.D. Signed In NovaPro By: CATHY MAN M.D. << Signature on File>> Reported By: CATHY MAN M.D. Signed By: CATHY MAN M.D. Tests performed at: [address] [address] Normal [facility] FOOT 3 VIEWSon 01-28-2018 FOOT [address] [address] Name: LIGIA RIVAS Phys: MANE SMITH D.P.M. : 64 Age: 57 Sex: F Acct: [id number] Loc: AMB Exam Date: 01/28/18 Status: [facility] No.: [id number] Unit Number: [id number] Exam # Type/Exam [id number] RAD / FOOT 3 VIEWS RT EXAMINATION: Intraoperative fluoroscopy and 4 intraoperative images of the RIGHT hindfoot 01/28/2018 CLINICAL INDICATION: Hindfoot arthritis. COMPARISON: None available. FINDINGS: 1.5 minutes fluoroscopy time was used and 4 intraoperative images obtained. These document triple arthrodesis of the subtalar joint including to interference screws and 3 large ad. IMPRESSION: 1. Patient undergoing triple arthrodesis of the subtalar joint RIGHT foot. Professional interpretation provided by [facility], [place] on [facility]PC-66. Thank you for this referral. < > Reported By: STERLING ROSA D.O. Signed In NovaPro By: STERLING ROSA D.O. << Signature on File>> Reported By: STERLING ROSA D.O. Signed By: STERLING ROSA D.O. Tests performed at: [place] [address] Normal [facility] FOOT 3 V[address]WS [place] [address] Name: LIGIA RIVAS Phys: MANE SMITH D.P.M. : 64 Age: 57 Sex: F Acct: [id number] Loc: AMB Exam Date: 01/28/18 Status: [facility] [place] No.: [id number] Unit Number: [id number] Exam # Type/Exam [id number] RAD / FOOT 3 VIEWS RT EXAMINATION: RIGHT foot portable AP oblique and lateral view CLINICAL INDICATION: Postoperative assessment. COMPARISON: Intraoperative images same date. FINDINGS:3 images of the foot obtained through a fiberglass splint. Patient has undergone placement of 2 interference screws fusing the posterior aspect of the subtalar joint and 3 large ad which cause arthrodesis between the talus and the tarsal navicular and cuboid bones. Moderate hallux valgus deformity is seen. There is no acute fracture. IMPRESSION: 1. Patient status post triple arthrodesis of the hindfoot. 2. Moderate hallux valgus deformity. Professional interpretation provided by [facility], [place] on RAC-PC-66. Thank you for this referral. < > Reported By: STERLING ROSA D.O. Signed In NovaPro By: STERLING ROSA D.O. << Signature on File>> Reported By: STERLING ROSA D.O. Signed By: STERLING ROSA D.O. Tests performed at: [address] [address] Normal [facility] GLUCOSE FSon 01-28-2018 Glucose mass conc 237 mg/dL High 70-110 [facility] Comment on above: Performed By: #### L 100.0070 #### [facility] [address] [place] [address] OPERATIVE REPORTon 8 [place] [address] HEALTH INFORMATION MANAGEMENT OPERATIVE REPORT Patient: LIGIA RIVAS ANDREW W D.P.M. [id number] [age] F Status: [facility] DATE OF SERVICE 01/28/2018. HISTORY OF PRESENT ILLNESS This is a 57-year-old female who has had progressive pain and subtalar joint arthritis with talonavicular joint, dorsal spurring and arthritis as well as arthritis of the calcaneocuboid joint of the right foot. Because of these changes I discussed with the patient a triple arthrodesis. The patient understands there is no guarantees to outcome. We have discussed risks and benefits and the patient wishes to proceed. 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 PROCEDURE PERFORMED TODAY Triple arthrodesis right foot. SURGEON Dr. Mane Smith. CENTRIFUGAL OPERATOR Elinor Hidalgo D.P.M., postgraduate year 3. ANESTHESIA Anesthesia was general. HEMOSTASIS Right thigh tourniquet. ESTIMATED BLOOD LOSS 50 mL. COMPLICATIONS None. SPECIMEN TODAY Specimen today was bone sent to pathology. MATERIALS Materials used were 3 Arthrex DynaNite nitinol ad and two 7.0 mm headless compression screws, Allosync 10 mL DBM bone graft. OP NOTE Under mild sedation, the patient was brought to the operating room and placed on the operating table in the supine position. At this time, the patient was given a general anesthetic. Endotracheal tube was placed. The patient had a bump placed under the right hip. The right thigh tourniquet was applied. The right lower extremity had a local anesthetic injected in an ankle block fashion consisting of 10 mL of 2% lidocaine plain. The right lower extremity was then scrubbed, prepped and draped in the usual aseptic manner. An Esmarch was used to exsanguinate the right lower extremity. The tourniquet was inflated to 250 mm of pressure. Attention was directed to the lateral hind foot where an incision was made from just posterior to the lateral malleolus and extended distally and dorsally to the base of the fourth metatarsal cuboid joint. At this time care was taken to perform blunt and sharp dissection. The peroneal tendons were identified and retracted plantarly throughout the case as was the sural nerve. Any superficial bleeders underwent electrocautery. An incision was made in the capsular structure of the subtalar joint laterally. A rongeur was used to remove some synovial tissue. When I incised into the capsule a fairly large joint mouse was identified and was removed and sent to pathology with the bone for specimen today from the joints. At this point, dissection was also carried distally to the calcaneocuboid joint. The soft tissues were freed from these areas and the dorsal ligamentous structure of the calcaneocuboid joints were cut and freed. We were able to sharply dissect off the extensor digitorum and extensor hallucis brevis muscle bellies off the anterior process of the calcaneus for good exposure in the subtalar joint and we had great exposure into the calcaneocuboid joint. At this point I was able to remove the soft tissue inside the subtalar joint and cc joint with pickup 15 blade and rongeur. I then used a saw as well as a bur, curettes, rongeur and osteotome and mallets to remove the cartilaginous surface of the subtalar joint and calcaneocuboid joint to subchondral bone. Once we had adequate dissection. Attention was then directed to the dorsal medial talonavicular joint where a longitudinal linear incision was made. The incision was deepened through subcutaneous tissue using sharp and blunt dissection. Any superficial bleeders underwent electrocautery. Anterior tibial tendon was identified and protected throughout the course of the procedure as was the posterior tibial tendon. A longitudinal linear incision was made through the capsular structure of the talonavicular joint. The soft tissue was dissected and freed exposing the talonavicular joint. There was a very large dorsal exostosis of the talonavicular joint which was removed today with osteotome, mallet and rongeur. At this point I was able to use this saw as well as the osteotome, mallet, rongeur and curette to remove the cartilage surface of the talonavicular joint to subchondral bone. Once we had adequate removal and resection I was able to use a 06.2 K-wire to subchondrally drill at both the calcaneus and cuboid subtalar joints as well as the navicular and talus joints. It appeared on the table that we had adequate resection. Copious amounts of saline were used to irrigate throughout this procedure. At this point I packed the subtalar joint with 10 mL of the Allosync Pure DBM graft from [employer]. This was placed in the subtalar joint as she had some cystic formation, particularly in the calcaneus. We packed this in here for added support. At this point attention was directed to the posterior calcaneus where percutaneously I placed a guidewire for the 7.0 mm compression fully threaded screw. This was placed under fluoroscopic guidance and a parallel guide was used to place 2 of these guidewires. I did this under fluoroscopy. On the axial views it appears that we had them in good position. However, there was a screw that was slightly lateral. It did grab the lateral wall of the talus and cross the calcaneus at the subtalar joint. Therefore, I decided to leave it in place when the screw was applied. I drilled the near cortices over the guidewires of the parallel screws and then placed a 70 mm and a 75 mm headless compression fully threaded Arthrex screw over these wires. This gave very nice positioning. We put the heel at about neutral today. There was no varus. We had good compression of this area and there were no spaces or bony void noted on x-ray and not visually. Again, the most lateral screw was visible as it came out of the calcaneus and into the talus just the lateral aspect of it was on the table. I packed the extra bone graft that I had around it today as well for added protection. I left it in place because of the good positioning and I am not sure that this will cause much problem for her. I then had to deflate the tourniquet. An Jg wrap was applied and there was saline soaked gauze placed into the incision sites. The tourniquet was deflated and a brisk hyperemic response was noted to digits 1 through 5 on the right foot. At this point, the tourniquet was left down for 15 minutes. An Esmarch was used to exsanguinate the right foot and the tourniquet was re-inflated to 350 mm of pressure. It was done. At this point I then was able to place the TN joint in the corrected position and was able to apply a dorsal and a slightly dorsal medial Arthrex nitinol staple. These were applied in a standard fashion using a 2.6 mm drill bit. There was 1 placed over the calcaneocuboid joint and 2 over the TN joint. The TN joint was fixated first and the calcaneocuboid joint was fixated last. This was done under fluoroscopic guidance. An 18 width x 15 length nitinol staple at 20 width x 20 length nitinol staple and an 18 width x 18/15 length was placed. At this point, we had good compression. I placed the ankle through a range of motion and she had good ankle joint range of motion, only able to get to about just slightly greater than 0 degrees of dorsiflexion without any crepitation. There was no motion of the subtalar joint, calcaneocuboid joint and talonavicular joint. At this point, layered closure was then performed utilizing 3-0 Vicryl suture for the capsular tissues of the TN CC and subtalar joint. 4-0 Vicryl suture was then used for the subcutaneous tissue for reapproximation. 4-0 Prolene was then used to reapproximate the skin edges over the talonavicular joint. A horizontal mattress suture was applied over the CC and subtalar joint laterally. A locking continuous stitch was applied. The posterior heel horizontal mattress were applied where the stab incisions were made for the screw fixation. The patient had the screws buried in the calcaneus. The wires had obviously been removed. At this point, a postoperative injection consisting of 20 mL of 0.5% bupivacaine plain was injected in an ankle block fashion for the right lower extremity. A dressing consisting of Xeroform, 4x4s, Kerlix and then several layers of cast padding was applied. A posterior splint was applied to the right lower extremity with the foot at 90 degrees to lower leg. The patient understands she will have to be nonweightbearing. The patient was transported from the OR to recovery. She was having some difficult time breathing so I am at this point anticipating that she will be able to be returned to home as she had been taken off the ventilator, however, will see if the hospitalist needs to be consulted for possible admission. Preoperatively, according to the chest x-ray, she had no acute thoracic process and she has been cleared medically. Will plan to follow up with this. If she is not discharged will have to follow up with her while she is here in the hospital, if not we will have her follow up in the office in 1 week. 02/10/18 0819 MANE SMITH D.P.M. cc: MANE SMITH D.P.M. << Signature on File>> Reported By: MANE SMITH D.P.M. Signed By: MANE SMITH D.P.M. Tests performed at: [place] [address] [facility] SURGICALon 01-28-2018 SURGICAL Bone of foot - BONE ARTHRITIS RT FOOT GROSS DESCRIPTION: Labeled bone right foot. Received in formalin are multiple fragments of white to pink solis soft tissue measuring 5.0 x 5.0 x 1.5 cm in aggregate. These are fragments of bone and cartilage. [employer] Riv[employer] Operator fragments are submitted in one cassette after decalcification. SHABNAM/sl ---- MICROSCOPIC DESCRIPTION: Slides reviewed. SHABNAM/nevaeh ---- FINAL DIAGNOSIS: BONE, RIGHT FOOT, FRAGMENTS: BENIGN FRAGMENTS OF BONE, CARTILAGE, AND FIBROADIPOSE TISSUE WITH CHANGES OF OSTEOARTHRITIS. Dictated by: SEA MAE M.D. CLINICAL DATA: PROCEDURE: Triple arthrodesis foot PRE-OP: Arthritis of right foot POST-OP: Arthritis of right foot HISTORY: N/A SPECIAL STAINS A DECAL Signed *Electronically Signed* SEA MAE M.D. 02/02/18 1527 ---- [facility] Comment on above: Performed By: #### P -S #### [facility] [address] [address] SURGICAL HISTORY AND PHYSICA Raúl 01-25-2018 SURGICAL HISTORY [place] [address] HEALTH INFORMATION MANAGEMENT SURGICAL HISTORY AND PHYSICAL Patient: LIGIA RIVAS ANDREW W D.PEssenceMEssence [id number] F Status[place] [facility] [place] DATE OF ADMISSION 01/28/2018 HISTORY OF PRESENT ILLNESS This 57-year-old female has been seen in my [place] office with continued pain in the right foot despite conservative therapy. The patient has had pain in the right subtalar joint with a large hallux abductovalgus deformity that is not painful for her. This subtalar joint pain and plantar fasciitis have been alleviated with corticosteroid injections as well as anti-inflammatories. The patient has custom made orthotics for the flattening of the right foot arch. The patient has even used Powerstep insoles as well. Her pain has been recalcitrant to conservative therapy. The patient had x-rays previously performed at [facility] showing significant arthritis of the subtalar joint, talonavicular joint and arthritis of the calcaneonavicular joint. Because of the continued pain and because of the arthritis that is present I discussed with the patient triple arthrodesis for the right foot. The patient would like to proceed as her pain is only temporarily alleviated with the injection in the subtalar joint. PAST MEDICAL HISTORY Past medical history is remarkable for hypercholesterolemia, hypertension as well as diabetes mellitus, type 2, noninsulin dependent. MEDICATIONS Current medications are: Losartan potassium 25 mg daily, metformin 500 mg twice a day and pramipexole dihydrochloride 1 mg daily. ALLERGIES No known drug allergies. PAST SURGICAL HISTORY She has had a tubal ligation, cholecystectomy, one . She has had a subtalar joint fusion of the left I believe as well as a bunionectomy of the left foot. FAMILY HISTORY Remarkable for coronary artery disease in her father and brother. Her father and brother as well as her son have hypertension. Father and brother have hypercholesterolemia. Her father had kidney disease. Father has had a CVA. Mother, son and daughter have all had foot problems. Mother and father with arthritis. Daughter with asthma. Her father and brother have diabetes. SOCIAL HISTORY Patient is . 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 She denies tobacco, alcohol and illicit drug use. REVIEW OF SYSTEMS The patient is in general good health. She complains of blurred vision with the head, ears, eyes, nose and throat. Also complains of snoring with respiratory system. Complains of diarrhea with gastrointestinal system. Joint pain, muscle cramps as well as muscle pain with musculoskeletal system, and denies any other complaints. PHYSICAL EXAMINATION Her most recent vitals are from 09/29/2017. Her pulse was 102, blood pressure was 136/93. She is 275 pounds, 68 inches tall with a BMI of 41.81 kg per meter squared. Patient alert and oriented x3. Vascular: DP and PT pulses are palpable to the lower extremities bilaterally. Capillary fill time is less than 3 seconds to digits one through five bilaterally. There is nonpitting edema to the left lower extremity and +1 pitting edema to the right lower extremity. Derm: Skin turgor is normal. Temperature is normal to the lower extremities. Texture is within normal limits. Hair growth is present. Mild callus formation on the right medial heel due to the lack of subtalar joint motion. The patient has normal coloration to the skin. The left lower extremity has scars that are present but are not keloid or hypertrophic. She has healed these well. Neurologically: Epicritic sensations are intact bilaterally. No clonus noted. She has 1/4 Achilles tendon deep tendon reflexes bilaterally. Negative Babinski exam. Ortho: The patient's muscle strengths for the right, the gastrocnemius and tibialis anterior as well as the peroneus longus are 5/5, the tibialis posterior is 3/5. On the left lower extremity, the gastrocnemius, tibialis anterior and peroneus longus tendons are 5/5 whereas the tibialis posterior tendon is 4/5 for muscle strength testing. The patient has generalized pain to the right subtalar joint with edema that is boggy. The pain is also present in the plantar fascial ligament. No pain with lateral compression of the calcaneus. The patient has pain with inversion and eversion of the fifth talar joint which has limited range of motion. Pain is present over the sinus tarsi as well as the right subtalar joint. There is also some pain along the posterior tibial tendon as well as again the plantar fascial ligament. The patient has very limited subtalar joint range of motion for the right lower extremity and the left lower extremity. The patient has decreased medial arch height for the right lower extremity. The forefoot is in a slight varus position and the calcaneus is in valgus position. There is a moderate sized hallux abductovalgus deformity of the right foot. However, the patient has no pain with palpation of this area and there is normal range of motion. Weightbearing x-rays were obtained at [facility], three views of the right foot. The AP view shows that there is degenerative changes seen in the talonavicular joint. There is a large hallux abductovalgus deformity with subluxation of the first toe. However, this is not painful for the patient. The calcaneonavicular joint appears to also have arthritis as it extends medially towards the navicular bone. I do not appreciate any coalition on the x-rays. The oblique view shows that there is space within the calcaneus and navicular bone. The foot appears to be normal on the oblique view. The lateral view shows significant pathology with degenerative changes seen within the subtalar joint. There is dorsal lipping of the talonavicular joint. Plantar calcaneal spur is present. Overall on the lateral view she has fairly decent positioning of the foot. There is obvious arthritis of the subtalar joint, talonavicular joint as well as the calcaneocuboid joint. ASSESSMENT 1. Arthritis of the right foot subtalar joint, TN and CC joints. PLAN 1. I have discussed with the patient as well as reviewed and obtained signed consent for triple arthrodesis of the right foot. I know that she has plantar fasciitis, however, with the immobilization and being nonweightbearing for a period of time should allow this to subside. We will plan for triple arthrodesis due to the arthritic deformities that are present within the right foot. 2. No guarantees as to outcome were given. 3. The patient is to be n.p.o. midnight before surgery. 4. Patient has been advised to follow up with her primary care physician. This will be done for medical clearance. I did order a CBC, BMP, chest x-ray and EKG for the patient for preoperative testing. These were performed at [facility]. The EKG showed a normal sinus rhythm with possible left atrial enlargement. This has been seen by her primary care physician. The chest x-ray showed no acute disease. Her CBC, the only abnormality was her eosinophil number was at 0.60, the high normal for the lab at the hospital is 0.50, and on her BMP her potassium was just a tenth low at 3.4. Her glucose was at 254. I do not believe these labs were fasting. 5. The patient is to take her losartan with a sip of water the morning of surgery. 6. The patient understands that there are no guarantees to outcome. I have discussed risks of surgery such as delayed healing, overcorrection, undercorrection, nonunion, malunion, delayed union, painful hardware, numbness along the incision line, infection, keloid and hypertrophic scarring, painful scars as well as complications from anesthetic. 7. Discussed with the patient general type anesthetic, however, this will be given at the discretion of the anesthesiologist. 5. The patient has been dispensed pre and postoperative instructions advising her to cleanse her foot with Hibiclens the night before surgery and the morning of surgery to reduce the risk of postoperative infection. 6. I have encouraged the patient to call if she has any questions or concerns. At this time, we will plan to proceed with a triple arthrodesis of the right foot at [facility] on 01/28/2018. MANE SMITH D.P.M. cc: MONCHO LINN D.O.; MANE SMITH D.P.M. << Signature on File>> Reported By: MANE SMITH D.P.M. Signed By: MANE SMITH D.P.M. Tests performed at: [address] [address] [facility] Vital Signs Date Time Vital Sign Value Performing Clinician Kaia gary 11-16-2024 09:59-0400 Body height 170.[address] Pancho Tran MD Work Phone: [facility] 11-16-2024 09:59-0400 Body mass index (BMI) [Ratio] 40.7 kg/m2 Dr. Pancho Tran MD Work Phone: [facility] 11-16-2024 09:59-0400 Body temperature 97.3 [degF] Dr. Pancho Tran MD Work Phone: [facility] 11-16-2024 09:59-0400 Body weight 117.[address] Pancho Tran MD Work Phone: [facility] 11-16-2024 09:59-0400 Diastolic blood pressure 82 mm[Hg] Dr. Pancho Tran MD Work Phone: [facility] 11-16-2024 09:59-0400 Heart rate 94 /min Dr. Pancho Tran MD Work Phone: [facility] 11-16-2024 09:59-0400 Respiratory rate 16 /min Dr. Pancho Tran MD Work Phone: [facility] 11-16-2024 09:59-0400 SaO2% (BldA) [Mass fraction] 96 % Dr. Pancho Tran MD Work Phone: [facility] 11-16-2024 09:59-0400 Systolic blood pressure 138 mm[Hg] Dr. Pancho Tran MD Work Phone: [facility] 07-08-2024 10:35-0400 Body temperature 98 [degF] Sandra Ungerer VEHICLE OPERATOR TECHNICIAN-C Work Phone: [facility] 07-08-2024 10:35-0400 Diastolic blood pressure 83 mm[Hg] Sandra Ungerer VEHICLE OPERATOR TECHNICIAN-C Work Phone: [facility] 07-08-2024 10:35-0400 Heart rate 82 /min Sandra Ungerer VEHICLE OPERATOR TECHNICIAN-C Work Phone: [facility] 07-08-2024 10:35-0400 Respiratory rate 18 /min Sandra Ungerer VEHICLE OPERATOR TECHNICIAN-C Work Phone: [facility] 07-08-2024 10:35-0400 SaO2% (BldA) [Mass fraction] 97 % Sandra Ungerer VEHICLE OPERATOR TECHNICIAN-C Work Phone: [facility] 07-08-2024 10:35-0400 Systolic blood pressure 125 mm[Hg] Sandra Ungerer VEHICLE OPERATOR TECHNICIAN-C Work Phone: [facility] 07-07-2024 14:19-0400 Body height 170.18 cm Sandra Ungerer VEHICLE OPERATOR TECHNICIAN-C Work Phone: [facility] 07-07-2024 14:19-0400 Body weight 109.9 kg Sandra Ungerer VEHICLE OPERATOR TECHNICIAN-C Work Phone: [facility] 07-07-2024 00:40-0400 Body mass index (BMI) [Ratio] 37.9 kg/m2 Sandra Ungerer VEHICLE OPERATOR TECHNICIAN-C Work Phone: [facility] 07-06-2024 23:01-0400 Body temperature 97.9 [degF] Sandra Ungerer VEHICLE OPERATOR TECHNICIAN-C Work Phone: [facility] 07-06-2024 23:01-0400 Diastolic blood pressure 95 mm[Hg] Sandra Ungerer VEHICLE OPERATOR TECHNICIAN-C Work Phone: [facility] 07-06-2024 23:01-0400 Heart rate 87 /min Sandra Ungerer VEHICLE OPERATOR TECHNICIAN-C Work Phone: [facility] 07-06-2024 23:01-0400 Respiratory rate 24 /min Sandra Ungerer VEHICLE OPERATOR TECHNICIAN-C Work Phone: [facility] 07-06-2024 23:01-0400 SaO2% (BldA) [Mass fraction] 100 % Sandra Ungerer VEHICLE OPERATOR TECHNICIAN-C Work Phone: [facility] 07-06-2024 23:01-0400 Systolic blood pressure 125 mm[Hg] Sandra Ungerer VEHICLE OPERATOR TECHNICIAN-C Work Phone: [facility] 07-06-2024 17:46-0400 Body height 170.18 cm Sandra Ungerer VEHICLE OPERATOR TECHNICIAN-C Work Phone: [facility] 07-06-2024 17:46-0400 Body mass index (BMI) [Ratio] 37.8 kg/m2 Sandra Ungerer VEHICLE OPERATOR TECHNICIAN-C Work Phone: [facility] 07-06-2024 17:46-0400 Body weight 109.5 kg Sandra Ungerer VEHICLE OPERATOR TECHNICIAN-C Work Phone: [facility] 07-06-2024 10:55-0400 Body height 170.18 cm Sandra Ungerer VEHICLE OPERATOR TECHNICIAN-C Work Phone: [facility] 07-06-2024 10:55-0400 Body mass index (BMI) [Ratio] 37.4 kg/m2 Sandra Ungerer VEHICLE OPERATOR TECHNICIAN-C Work Phone: [facility] 07-06-2024 10:55-0400 Body temperature 96.9 [degF] Sandra Ungerer VEHICLE OPERATOR TECHNICIAN-C Work Phone: [facility] 07-06-2024 10:55-0400 Body weight 108.4 kg Sandra Ungerer VEHICLE OPERATOR TECHNICIAN-C Work Phone: [facility] 07-06-2024 10:55-0400 Diastolic blood pressure 78 mm[Hg] Sandra Ungerer VEHICLE OPERATOR TECHNICIAN-C Work Phone: [facility] 07-06-2024 10:55-0400 Heart rate 101 /min Sandra Ungerer VEHICLE OPERATOR TECHNICIAN-C Work Phone: [facility] 07-06-2024 10:55-0400 Respiratory rate 16 /min Sandra Ungerer VEHICLE OPERATOR TECHNICIAN-C Work Phone: [facility] 07-06-2024 10:55-0400 SaO2% (BldA) [Mass fraction] 98 % Sandra Ungerer VEHICLE OPERATOR TECHNICIAN-C Work Phone: [facility] 07-06-2024 10:55-0400 Systolic blood pressure 118 mm[Hg] Sandra Ungerer VEHICLE OPERATOR TECHNICIAN-C Work Phone: [facility] 07-06-2024 09:45-0400 Body height 170.18 cm Sandra Ungerer VEHICLE OPERATOR TECHNICIAN-C Work Phone: [facility] 07-06-2024 09:45-0400 Body mass index (BMI) [Ratio] 37.5 kg/m2 Sandra Ungerer VEHICLE OPERATOR TECHNICIAN-C Work Phone: [facility] 07-06-2024 09:45-0400 Body weight 108.57 kg Sandra Ungerer VEHICLE OPERATOR TECHNICIAN-C Work Phone: [facility] 07-06-2024 09:45-0400 Diastolic blood pressure 85 mm[Hg] Sandra Ebonyerer VEHICLE OPERATOR TECHNICIAN-C Work Phone: [facility] 07-06-2024 09:45-0400 Heart rate 102 /min Sandra Ebonyerer VEHICLE OPERATOR TECHNICIAN-C Work Phone: [facility] 07-06-2024 09:45-0400 SaO2% (BldA) [Mass fraction] 96 % Sandra Ebonyerer VEHICLE OPERATOR TECHNICIAN-C Work Phone: [facility] 07-06-2024 09:45-0400 Systolic blood pressure 130 mm[Hg] Sandra Ebonyerer VEHICLE OPERATOR TECHNICIAN-C Work Phone: [facility] 05-24-2024 12:15-0400 Body height 170.18 cm VEHICLE OPERATOR TECHNICIAN. Sandra Beckerer VEHICLE OPERATOR TECHNICIAN-C Work Phone: [facility] 05-24-2024 12:11-0400 Body mass index (BMI) [Ratio] 39.1 kg/m2 VEHICLE OPERATOR TECHNICIAN. Sandra Ungerer VEHICLE OPERATOR TECHNICIAN-C Work Phone: [facility] 05-24-2024 12:11-0400 Body weight 113.39 kg VEHICLE OPERATOR TECHNICIAN. Sandra Beckerer VEHICLE OPERATOR TECHNICIAN-C Work Phone: [facility] 05-24-2024 12:11-0400 Diastolic blood pressure 77 mm[Hg] VEHICLE OPERATOR TECHNICIAN. Sandra Beckerer VEHICLE OPERATOR TECHNICIAN-C Work Phone: [facility] 05-24-2024 12:11-0400 Systolic blood pressure 121 mm[Hg] VEHICLE OPERATOR TECHNICIAN. Sandra Ungerer VEHICLE OPERATOR TECHNICIAN-C Work Phone: [facility] 05-06-2024 13:01-0400 Diastolic blood pressure 77 mm[Hg] DANNY NEVAREZ MD Work Phone: [facility] 05-06-2024 13:01-0400 Heart rate 78 /min DANNY NEVAREZ MD Work Phone: [facility] 05-06-2024 13:01-0400 Respiratory rate 16 /min DANNY NEVAREZ MD Work Phone: [facility] 05-06-2024 13:01-0400 SaO2% (BldA) [Mass fraction] 96 % DANNY NEVAREZ MD Work Phone: [facility] 05-06-2024 13:01-0400 Systolic blood pressure 132 mm[Hg] DANNY NEVAREZ MD Work Phone: [facility] 05-06-2024 11:52-0400 Body height 170.18 cm DANNY NEVAREZ MD Work Phone: [facility] 05-06-2024 11:52-0400 Body temperature 97.9 [degF] DANNY NEVAREZ MD Work Phone: [facility] 05-06-2024 11:52-0400 Body weight 112.95 kg DANNY NEVAREZ MD Work Phone: [facility] 04-20-2024 15:31-0500 Body height 170.18 cm VEHICLE OPERATOR TECHNICIAN. Sandra Meredith VEHICLE OPERATOR TECHNICIAN-C Work Phone: [facility] 04-20-2024 15:31-0500 Body mass index (BMI) [Ratio] 39.3 kg/m2 VEHICLE OPERATOR TECHNICIANEssence Meredith VEHICLE OPERATOR TECHNICIAN-C Work Phone: [facility] 04-20-2024 15:31-0500 Body temperature 98.1 [degF] NP. Sandra Meredith VEHICLE OPERATOR TECHNICIAN-C Work Phone: [facility] 04-20-2024 15:31-0500 Body weight 113.85 kg VEHICLE OPERATOR TECHNICIANEssence Meredith VEHICLE OPERATOR TECHNICIAN-C Work Phone: [facility] 04-20-2024 15:31-0500 Diastolic blood pressure 94 mm[Hg] VEHICLE OPERATOR TECHNICIAN. Sandra Ungerer VEHICLE OPERATOR TECHNICIAN-C Work Phone: [facility] 04-20-2024 15:31-0500 Heart rate 87 /min VEHICLE OPERATOR TECHNICIAN. Sandra Ungerer VEHICLE OPERATOR TECHNICIAN-C Work Phone: [facility] 04-20-2024 15:31-0500 Respiratory rate 16 /min VEHICLE OPERATOR TECHNICIAN. Sandra Ungerer VEHICLE OPERATOR TECHNICIAN-C Work Phone: [facility] 04-20-2024 15:31-0500 SaO2% (BldA) [Mass fraction] 97 % VEHICLE OPERATOR TECHNICIAN. Sandra Ungerer VEHICLE OPERATOR TECHNICIAN-C Work Phone: [facility] 04-20-2024 15:31-0500 Systolic blood pressure 142 mm[Hg] VEHICLE OPERATOR TECHNICIAN. Sandra Ungerer VEHICLE OPERATOR TECHNICIAN-C Work Phone: [facility] 04-13-2024 09:43-0500 Body mass index (BMI) [Ratio] 38.9 kg/m2 VEHICLE OPERATOR TECHNICIAN. Sandra Ungerer VEHICLE OPERATOR TECHNICIAN-C Work Phone: [facility] 04-13-2024 09:43-0500 Body weight 112.94 kg VEHICLE OPERATOR TECHNICIAN. Sandra Ungerer VEHICLE OPERATOR TECHNICIAN-C Work Phone: [facility] 04-13-2024 09:43-0500 Diastolic blood pressure 85 mm[Hg] VEHICLE OPERATOR TECHNICIAN. Sandra Ungerer VEHICLE OPERATOR TECHNICIAN-C Work Phone: [facility] 04-13-2024 09:43-0500 Heart rate 81 /min VEHICLE OPERATOR TECHNICIAN. Sandra Ungerer VEHICLE OPERATOR TECHNICIAN-C Work Phone: [facility] 04-13-2024 09:43-0500 SaO2% (BldA) [Mass fraction] 97 % VEHICLE OPERATOR TECHNICIAN. Sandra Ungerer VEHICLE OPERATOR TECHNICIAN-C Work Phone: [facility] 04-13-2024 09:43-0500 Systolic blood pressure 142 mm[Hg] VEHICLE OPERATOR TECHNICIAN. Sandra Ungerer VEHICLE OPERATOR TECHNICIAN-C Work Phone: [facility] 01-10-2024 10:09-0500 Body mass index (BMI) [Ratio] 38.9 kg/m2 VEHICLE OPERATOR TECHNICIAN. Sandra Gomezr VEHICLE OPERATOR TECHNICIAN-C Work Phone: [facility] 01-10-2024 10:09-0500 Body weight 112.66 kg VEHICLE OPERATOR TECHNICIAN. Sandra Gomezr VEHICLE OPERATOR TECHNICIAN-C Work Phone: [facility] 01-10-2024 10:09-0500 Diastolic blood pressure 82 mm[Hg] VEHICLE OPERATOR TECHNICIAN. Sandra Gomezr VEHICLE OPERATOR TECHNICIAN-C Work Phone: [facility] 01-10-2024 10:09-0500 Heart rate 87 /min VEHICLE OPERATOR TECHNICIAN. Sandra Gomezr VEHICLE OPERATOR TECHNICIAN-C Work Phone: [facility] 01-10-2024 10:09-0500 SaO2% (BldA) [Mass fraction] 98 % VEHICLE OPERATOR TECHNICIAN. Sandra Gomezr VEHICLE OPERATOR TECHNICIAN-C Work Phone: [facility] 01-10-2024 10:09-0500 Systolic blood pressure 131 mm[Hg] VEHICLE OPERATOR TECHNICIAN. Sandra Gomezr VEHICLE OPERATOR TECHNICIAN-C Work Phone: [facility] 01-04-2023 10:55-0500 Body height 170.[address] Ivone Hurtado Work Phone: [facility] 01-04-2023 10:55-0500 Body mass index (BMI) [Ratio] 41.5 kg/m2 Dr. Ivone Hurtado Work Phone: [facility] 01-04-2023 10:55-0500 Body weight 120.[address] Ivone Hurtado Work Phone: [facility] 11-13-2022 09:01-0400 Body mass index (BMI) [Ratio] 40.7 kg/m2 Dr. Ivone Hurtado Work Phone: [facility] 11-13-2022 09:01-0400 Body weight 118.[address] Ivone Hurtado Work Phone: [facility] 05-27-2021 15:57-0400 Body height 170.[address] Ivone Hurtado Work Phone: [facility] Work Phone: 05-27-2021 15:57-0400 Body mass index (BMI) [Ratio] 41.1 kg/m2 Dr. Ivone Hurtado Work Phone: [facility] Work Phone: 05-27-2021 15:57-0400 Body weight 119.[address] Ivone Hurtado Work Phone: [facility] Work Phone: 05-27-2021 15:57-0400 Diastolic blood pressure 90 mm[Hg] Dr. Ivone Hurtado Work Phone: [facility] Work Phone: 05-27-2021 15:57-0400 Systolic blood pressure 130 mm[Hg] Dr. Ivone Hurtado Work Phone: [facility] Work Phone: 05-20-2021 08:50-0400 Diastolic blood pressure 98 mm[Hg] Dr. Ivone Hurtado Work Phone: [facility] Work Phone: 05-20-2021 08:50-0400 Systolic blood pressure 166 mm[Hg] Dr. Ivone Hurtado Work Phone: [facility] Work Phone: 05-20-2021 08:17-0400 Body mass index (BMI) [Ratio] 41.5 kg/m2 Dr. Ivone Hurtado Work Phone: [facility] Work Phone: 05-20-2021 08:17-0400 Body weight 120.[address] Ivone Hurtado Work Phone: [facility] Work Phone: Encounters Encounter Date Encounter Type Care Provider Facility Start: 11-16-2024 End: 11-16-2024 Patient encounter procedure Sandra Ungerer VEHICLE OPERATOR TECHNICIAN-C -[facility] Work Phone: Start: 11-16-2024 End: 11-16-2024 ambulatory Pancho rTan Facility:[facility] Start: 09-22-2024 ambulatory SANDRA VEHICLE OPERATOR TECHNICIAN [facility] Start: 09-22-2024 Encounter for other preprocedural examination SANDRA VEHICLE OPERATOR TECHNICIAN [facility] Start: 07-08-2024 Non-patient / Non-visit Dr. Liza Sargent MD -[facility] Work Phone: Start: 07-07-2024 ambulatory Alejandra Weiner Facility :[facility] Start: 07-07-2024 End: 07-08-2024 Evaluation and management of inpatient Dr. Cate Sargent MD -Progressive Care Unit Work Phone: Start: 07-07-2024 Non-patient / Non-visit Dr. Ishaan Weiner MD -[facility] Work Phone: Start: 07-06-2024 End: 07-08-2024 ambulatory Cate Sargent Facility:[facility] Start: 07-06-2024 Evaluation and management of inpatient Dr. Alejandra Weiner MD -Progressive Care Unit Work Phone: Start: 07-06-2024 observation encounter Sandra Ebonyerer VEHICLE OPERATOR TECHNICIAN-C Work Phone: [facility] Work Phone: Start: 07-06-2024 End: 07-06-2024 ambulatory Sandra Ungerer VEHICLE OPERATOR TECHNICIAN-C Work Phone: [facility] Work Phone: Start: 07-06-2024 End: 07-06-2024 Patient encounter procedure Manan Escobar PA -Laboratory [facility] Start: 07-06-2024 End: 07-06-2024 Patient encounter procedure Caitlin Tilley VEHICLE OPERATOR TECHNICIAN-C -[facility] Work Phone: Start: 07-06-2024 End: 07-06-2024 ambulatory Sandra Meredith VEHICLE OPERATOR TECHNICIAN-C Work Phone: [facility] Work Phone: Start: 07-06-2024 End: 07-06-2024 ambulatory [facility] Facility:[facility] Start: 06-01-2024 End: 06-01-2024 ambulatory VEHICLE OPERATOR TECHNICIAN. Sandra Meredith VEHICLE OPERATOR TECHNICIAN-C Work Phone: [facility] Work Phone: Start: 06-01-2024 End: 06-01-[address] Pancho Tran MD -Outpatient Bone Densitometry Work Phone: Start: 06-01-2024 End: 06-01-2024 ambulatory [facility] Facility:[facility] Start: 05-25-2024 End: 05-25-2024 ambulatory VEHICLE OPERATOR TECHNICIANsEsence Meredith VEHICLE OPERATOR TECHNICIAN-C Work Phone: [facility] Work Phone: Start: 05-25-2024 End: 05-25-2024 Patient encounter procedure Pam Small CNM -Laboratory, Specimen Work Phone: Start: 05-24-2024 Encounter for gynecological examination (general) (routine) without abnormal findings Pam Small [facility] Start: 05-24-2024 End: 05-24-2024 Patient encounter procedure Pam Small CNM -[facility] Start: 05-24-2024 End: 05-24-2024 Patient encounter status Pam Small CNM [facility] Start: 05-24-2024 End: 05-25-2024 ambulatory [facility] Facility:[facility] Start: 05-06-2024 End: 05-06-2024 ambulatory DANNY NEVAREZ Facility: Start: 05-06-2024 End: 05-06-2024 Emergency department patient visit DANNY NEVAREZ MD Work Phone: [facility] Start: 04-20-2024 Encounter for genera l adult medical [facility] Start: 04-20-2024 End: 04-20-[address] Pancho Tran MD -[facility] Work Phone: Start: 04-20-2024 End: 04-20-[address] Pancho Tran MD [facility] Start: 04-20-2024 End: 04-20-2024 ambulatory VEHICLE OPERATOR TECHNICIAN. Sandra Meredith VEHICLE OPERATOR TECHNICIAN-C Work Phone: [facility] Work Phone: Start: 04-20-2024 End: 04-20-2024 ambulatory [facility] Facility:[facility] Start: 04-13-2024 End: 04-13-2024 Patient encounter procedure Caitlin Tilley VEHICLE OPERATOR TECHNICIAN-C -[facility] Work Phone: Start: 04-13-2024 End: 04-13-2024 ambulatory Caitlin Tilley Facility:[facility] Start: 01-10-2024 End: 01-10-2024 Patient encounter procedure Caitlin Tilley VEHICLE OPERATOR TECHNICIAN-C -[facility] Work Phone: Start: 01-10-2024 End: 01-10-2024 ambulatory Sandra Meredith Facility:[facility] Start: 01-10-2024 End: 01-10-2024 ambulatory Caitlin Tilley Facility:[facility] Start: 12-01-2023 End: 12-01-2023 ambulatory Sandra Meredith Facility:[facility] Start: 11-02-2023 End: 12-14-2023 [facility] Start: 06-16-2023 ambulatory SANDRA MEREDITH Rust y:[facility] Start: 06-16-2023 End: 06-16-2023 Office consultation new/estab patient 60 min Tiffany Beaver MD Work Phone: Sports Medicine [facility] Comment on above: Left hip pain (Prima ry Dx) Start: 06-16-2023 End: 06-16-2023 Subsequent hospital visit by physician Tiffany Beaver MD Work Phone: Imaging [facility] Comment on above: Arrived Start: 01-18-2023 End: 01-18-[address] Ivone Hurtado Work Phone: [facility] Work Phone: Start: 01-18-2023 End: 01-18-[address] Ivone Hurtado Work Phone: [facility] Work Phone: Start: 01-07-2023 End: 01-07-[address] Ivone Hurtado Work Phone: [facility] Work Phone: Start: 01-04-2023 End: 01-04-[address] Ivone Hurtado Work Phone: [facility] Work Phone: Start: 12-25-2022 End: 12-25-[address] Ivone Hurtado Work Phone: [facility] Work Phone: Start: 11-27-2022 End: 11-27-[address] Ivone Hurtado Work Phone: [facility] Work Phone: Start: 11-13-2022 End: 11-13-[address] Ivone Hurtado Work Phone: [facility] Work Phone: Start: 05-27-2021 End: 05-27-[address] Ivone Hurtado Work Phone: [facility] Start: 05-27-2021 End: 05-27-[address] Ivone Hurtado Work Phone: [facility] Start: 05-20-2021 End: 05-20-[address] Ivone Hurtado Work Phone: [facility]-Laboratory, Specimen Start: 05-20-2021 End: 05-20-[address] Ivone Hurtado Work Phone: [facility] Start: 02-09-2018 Patient encounter procedure MANE SMITH Facility:[facility] Start: 01-28-2018 End: 01-28-2018 Patient encounter procedure MANE SMITH Facility:[facility] Procedures Date Procedure Procedure Detail Performing Clinician Start: 07-08-2024 Estimated creatinine clearance Sandra Ungerer VEHICLE OPERATOR TECHNICIAN-C Work Phone: Start: 07-08-2024 Reactive lymphocyte count Sandra Ungerer VEHICLE OPERATOR TECHNICIAN-C Work Phone: Start: 07-07-2024 Iadna-dna/rna gi pth gn multiplex probe tq 6-11 Sandra Ungerer VEHICLE OPERATOR TECHNICIAN-C Work Phone: Start: 07-07-2024 Nucleic acid assay Kateryna ica Ungerer VEHICLE OPERATOR TECHNICIAN-C Work Phone: Start: 07-07-2024 Serum inorganic phos phate measurement Sandra Ungerer VEHICLE OPERATOR TECHNICIAN-C Work Phone: Start: 07-06-2024 Urnls dip stick/tabl et reagent auto microscopy Sandra Ungerer VEHICLE OPERATOR TECHNICIAN-C Work Phone: Start: 07-06-2024 Oxygen measurement Kateryna ica Ungerer VEHICLE OPERATOR TECHNICIAN-C Work Phone: Start: 07-06-2024 Computed tomography of abdomen and pelvis with intravenous contrast Sandra Ungerer VEHICLE OPERATOR TECHNICIAN-C Work Phone: Start: 07-06-2024 Estimated creatinine clearance Sandra Meredith VEHICLE OPERATOR TECHNICIAN-C Work Phone: Start: 07-06-2024 Vitamin D, 25-hydrox y measurement Sandra Meredith VEHICLE OPERATOR TECHNICIAN-C Work Phone: Comment on above: Vitamin D StatusDefi ciency: <20 ng/mL (50nmol/L)Insufficiency: 20-30 ng/mL (50-75 nmol/L)Sufficiency: 30-100 ng/mL (75-250 nmol/L)Toxicity: >100 ng/mL (>250 nmol/L) Start: 06-01-2024 Dual energy X-ray absorptiometry VEHICLE OPERATOR TECHNICIAN. Sandra Meredith VEHICLE OPERATOR TECHNICIAN-C Work Phone: Start: 06-01-2024 Screening mammography N P. Sandra Meredith VEHICLE OPERATOR TECHNICIAN- Work Phone: Start: 05-25-2024 Liquid based cervica l cytology screening Sandra Meredith VEHICLE OPERATOR TECHNICIAN- Work Phone: Comment on above: EPITHELIAL CELL ABNO RMALITY.ATYPICAL SQUAMOUS CELLS OF UNDETERMINED SIGNIFICANCE (ASC-US). This liquid based Th inPrep(R) pap test was screened withthe use of an image guided system. Start: 05-06-2024 Plain X-ray of right hand DANNY NEVAREZ MD Work Phone: Start: 06-16-2023 Radex hip unilateral with pelvis 2-3 views Tiffany Beaver MD Work Phone: Start: 01-18-2023 MRI of joint of lowe r extremity Dr. Ivone Hurtado Work Phone: Start: 11-27-2022 Plain x-ray of pelvi s and lower extremity Dr. Ivone Hurtado Work Phone: Start: 11-13-2022 Plain X-ray of shoulder Dr. Ivone Hurtado Work Phone: Start: 05-27-[address] Boogie Hurtado Work Phone: Start: 05-27-[address] Ivone Hurtado Work Phone: Plan of Treatment Date Care Activity Detail Author Start: 07-08-[address] [facility] Start: 07-07-[address] [facility] Start: 07-07-[address] [facility] Start: 07-07-[address] [facility] Start: 07-07-2024 Serum inorganic phosphate measurement [facility] Start: 07-07-2024 Thyroid stimulating hormone measurement [facility] Start: 07-07-[address] [facility] Start: 07-07-2024 Following clinical pathway protocol [facility] Start: 07-07-[address] [facility] Start: 07-07-2024 [facility] Start: 07-06-[address] [facility] Start: 07-06-2024 Assessment of risk of venous thromboembolism [facility] Start: 07-06-2024 Insertion of catheter into peripheral vein [facility] Start: 07-06-2024 End: 07-07-2024 Patient referral to dietitian [facility] Start: 07-06-2024 Providing care according to standard [facility] Start: 07-06-[address] [facility] Start: 07-06-2024 [facility] Start: 07-06-2024 Hospital admission, emergency, from emergency room, medical nature [facility] Start: 07-06-2024 CBC W Auto Differential panel - Blood [facility] Start: 07-06-2024 Comprehensive metabolic 2000 panel - Serum or Plasma [facility] Start: 07-06-2024 Lipid 1996 panel - Serum or Plasma [facility] Start: 07-06-[address] [facility] Start: 07-06-2024 Thyroid stimulating hormone measurement [facility] Start: 07-06-2024 Triiodothyronine, free measurement [facility] Start: 07-06-2024 Vitamin D, 25-hydroxy measurement [facility] Start: 05-25-2024 Liquid based cervical cytology screening [facility] Start: 04-20-[address] [facility] Work Phone: Start: 10-24-2023 Influenza vaccination INFLUENZA VACCINE (Season Ended) [facility] Start: 07-21-2023 End: 07-21-2023 Patient encounter procedure 07/21/2023 9:20 AM EDT Office Visit [facility] [address] [place] [address] Jackson Campuzano, DO [address] [place] [id number] [facility] Start: 01-04-[address] [facility] Work Phone: Start: 11-27-[address] [facility] Work Phone: Start: 10-23-2022 COVID-19 VACCINE ( season) COVID-19 VACCINE ( season) [facility] Start: 05-27-2018 Hepatitis B vaccination HEP B VACCINE (2 of 3 - 19+ 3-dose series) [facility] Start: 2012 Zoster vaccine hzv live for subcutaneous use ZOSTER (SHINGLES) VACCINE (1 of 2) [facility] Start: 12-05-2007 Screening for malignant neoplasm of colon COLORECTAL CANCER SCREENING DISCUSSION [facility] Start: 2002 Lipid panel LIPID SCREENING [facility] Start: 2002 Screening for malignant neoplasm of breast MAMMOGRAM SCREENING DISCUSSION [facility] Start: 12-05-1983 Screening for malignant neoplasm of cervix CERVICAL CANCER SCREENING DISCUSSION [facility] Start: 1981 Third diphtheria, tetanus and acellular pertussis (DTaP) vaccination TDAP (ADULT) [facility] Start: 1977 HIV screening HIV SCREENING DISCUSSION [facility] Start: 1962 Hepatitis C screening HEPATITIS C VIRUS SCREENING [facility] Start: 1962 Tetanus vaccination TETANUS [facility] Alanine aminotransfe rase [Enzymatic activity/volume] in Serum or Plasma [facility] Alanine aminotransfe rase [Enzymatic activity/volume] in Serum or Plasma [facility] Albumin [Mass/volume ] in Serum or Plasma [facility] Albumin [Mass/volume ] in Serum or Plasma [facility] Alkaline phosphatase [Enzymatic activity/volume] in Serum or Plasma [facility] Alkaline phosphatase [Enzymatic activity/volume] in Serum or Plasma [facility] Anion gap in Serum o r Plasma [facility] Anion gap in Serum o r Plasma [facility] Bilirubin, total measurement [facility] Bilirubin, total measurement [facility] Bilirubin.direct [Mass/volume] in Serum or Plasma [facility] BUN/Creatinine ratio [facility] BUN/Creatinine ratio [facility] Calcium [Mass/volume ] in Serum or Plasma [facility] Calcium [Mass/volume ] in Serum or Plasma [facility] Carbon dioxide, tota l [Moles/volume] in Central venous blood [facility] Carbon dioxide, tota l [Moles/volume] in Central venous blood [facility] Cholesterol [Mass/vo lume] in Serum or Plasma [facility] Cholesterol in HDL [Mass/volume] in Serum or Plasma [facility] Clostridioides diffi cile DNA [Presence] in Unspecified specimen by VERNOICA with probe detection [facility] Comprehensive metabo lic 2000 panel - Serum or Plasma [facility] Creatinine [Mass/vol ume] in Serum or Plasma [facility] Creatinine [Mass/vol ume] in Serum or Plasma [facility] Cytology report of Cervical or vaginal smear or scraping Cyto stain.thin prep [facility] DXA Bone [Mass/Area] Bone density [facility] Erythrocyte mean corpuscular volume determination [facility] Erythrocyte mean corpuscular volume determination [facility] Glucose [Mass/volume ] in Serum or Plasma [facility] Glucose [Mass/volume ] in Serum or Plasma [facility] Hematocrit [Volume Fraction] of Blood [facility] Hematocrit [Volume Fraction] of Blood [facility] Hemoglobin [Mass/vol ume] in Blood [facility] Hemoglobin [Mass/vol ume] in Blood [facility] INR in Blood by Coagulation assay [facility] Leukocytes [#/volume ] in Blood [facility] Leukocytes [#/volume ] in Blood [facility] Lipid 1996 panel - S alhaji or Plasma [facility] Low density lipoprot ein cholesterol measurement [facility] Magnesium measurement [facility] Mean corpuscular hemoglobin concentration determination [facility] Mean corpuscular hemoglobin concentration determination [facility] Mean corpuscular hemoglobin determination [facility] Mean corpuscular hemoglobin determination [facility] Measurement of renal function [facility] Measurement of renal function [facility] MG Breast - bilatera l Screening [facility] Neutrophil count [facility] Neutrophil count [facility] Neutrophil percent differential count [facility] Neutrophil percent differential count [facility] Nucleic acid assay [facility] Path report.final Dx Spec [facility] Patient Education [facility] Work Phone: Patient referral [facility] Work Phone: Platelets [#/volume] in Blood [facility] Platelets [#/volume] in Blood [facility] Potassium measurement [facility] Potassium measurement [facility] Red blood cell count [facility] Red blood cell count [facility] Red cell distributio n width determination [facility] Red cell distributio n width determination [facility] Serum chloride measurement [facility] Serum chloride measurement [facility] Sodium measurement [facility] Sodium measurement [facility] T4 free measurement [facility] Thyroid stimulating hormone measurement [facility] Total cholesterol:HD L ratio measurement [facility] Total protein measurement [facility] Total protein measurement [facility] Triglycerides measurement [facility] Triiodothyronine, fr ee measurement [facility] Urea nitrogen [Mass/volume] in Serum or Plasma [facility] Urea nitrogen [Mass/volume] in Serum or Plasma [facility] Urine microalbumin/creatinine ratio measurement [facility] Vitamin D, 25-hydrox y measurement [facility] VLDL cholesterol measurement [facility] Immunizations Immunization Date Immunization Notes Care Provider Fa kezia 06-04-2020 Covid (e[employer]) Sandra lowe VEHICLE OPERATOR TECHNICIAN-C Work Phone: [facility] 05-10-2020 Covid ([employer]) Sandra lowe VEHICLE OPERATOR TECHNICIAN-C Work Phone: [facility] 11-06-2019 pneumococcal polysaccharide vaccine, 23 valent Sandra Eliu VEHICLE OPERATOR TECHNICIAN-C Work Phone: [facility] Payers Date Payer Category Payer Unknown [id number] 2023 Self-pay [id number] 2023 Unknown [id number] 2023 Unknown [facility]KE MALIN [facility] [id number] 2023-Present [address] [place] [address] [id number] 1962 Unknown [id number] 1962 Unknown [id number] 1962 Unknown [id number] Unknown [id number] Unknown [id number] Unknown [id number] 2..840.1.834225.3.579.2.283 Unknown [id number] 2..840.1.043503.3.579.2.283 Unknown [id number] Unknown [id number] 2..840.1.915295.3.579.2.528 Unknown [id number] 2.16.840.1.334427.3.579.2.462 Unknown [id number] 2.16.840.1.512902.3.579.2.462 Unknown [id number] 2.16.840.1.300626.3.579.2.462 Unknown [id number] 2.16.840.1.410395.3.579.2.462 Unknown [id number] 2.16.840.1.174922.3.579.2.462 Unknown [id number] 2.16.840.1.757669.3.579.2.462 Unknown [id number] 2.16.840.1.537456.3.579.2.462 Unknown [id number] 2.16.840.1.908149.3.579.2.462 Unknown [id number] 2.16.840.1.540360.3.579.2.462 Unknown [id number] 2.16.840.1.425119.3.579.2.462 Unknown [id number] 2.16.840.1.670405.3.579.2.462 Unknown [id number] 2.16.840.1.947603.3.579.2.462 Unknown [id number] 2.16.840.1.385023.3.579.2.462 Unknown [id number] 2.16.840.1.903870.3.579.2.462 Unknown [id number] 2.16.840.1.123123.3.579.2.462 Unknown [id number] 2.16.840.1.333269.3.579.2.462 Unknown [id number] 2.16.840.1.265680.3.579.2.462 Social History Date Type Detail Facility Start: 05-27-2021 End: 01-07-2023 Tobacco smoking status RIIS Unknown if ever smoked [facility] Start: 1960 Sex Assigned At Female [facility] Start: 06-16-2023 End: 07-07-2024 Tobacco smoking status NHIS Never smoked tobacco [facility] Start: 06-16-2023 Tobacco use and exposure Smokeless tobacco non-user [facility] Start: 06-16-2023 History of Social function [facility] Start: 06-16-2023 Tobacco use panel [facility] Start: 1960 Sex assigned at Not on file [facility] Start: 05-04-2024 End: 06-06-2024 Sex Female (finding) [facility] Start: 05-06-2024 Never Never [facility] Start: 05-06-2024 No No [facility] Medical Equipment Procedure Code Equipment Code Equipment Origin al Text Equipment Identifier Dates Arthroplasty, hip, total, using robot-assisted navigation ([id number]) Ceramic femoral head prosthesis ()[id number] FDA Start: 10-19-2023 Arthroplasty, hip, total, using robot-assisted navigation ([id number]) Coated hip femur prosthesis, modular ()[id number] FDA Start: 10-19-2023 Arthroplasty, hip, total, using robot-assisted navigation ([id number]) Non-constrained polyethylene acetabular liner ()[id number] FDA Start: 10-19-2023 Arthroplasty, hip, total, using robot-assisted navigation ([id number]) Acetabular shell ()[id number] FDA Start: 10-19-2023 Arthroplasty, hip, total, using robot-assisted navigation ([id number]) Orthopaedic bone screw, non-bioabsorbable, sterile ()[id number] FDA Start: 10-19-2023 Start: 01-28-2023 Blood Sugar Diagnostic (Onetouch Ultra Test) strip Start: 04-13-2024 Blood Sugar Diagnostic (Onetouch Ultra Test) strip Start: 04-13-2024 Blood Sugar Diagnostic (Onetouch Ultra Test) strip Start: 04-13-2024 Blood Sugar Diagnostic (Onetouch Ultra Test) strip Start: 04-13-2024 Blood Sugar Diagnostic (Onetouch Ultra Test) strip Start: 04-13-2024 Blood Sugar Diagnostic (Onetouch Ultra Test) strip Start: 04-13-2024 Blood Sugar Diagnostic (Onetouch Ultra Test) strip Start: 04-13-2024 Blood Sugar Diagnostic (Onetouch Ultra Test) strip Start: 04-13-2024 Blood Sugar Diagnostic (Onetouch Ultra Test) strip Start: 04-13-2024 Goals Date Patient Goal Desired Activity /State Functional Status Date Assessment Result Facility 07-08-2024 Functional status Ambulates [facility] Work Phone: Mental Status Date Assessment Result Facility 07-08-2024 Cognitive function Voice/Name [facility] Work Phone: 07-06-2024 Cognitive function Level Of Cons ciousness Awake;Alert;Appropriate;Follow s Commands [facility] Work Phone: 05-06-2024 Cognitive function Level Of Cons ciousness Awake;Alert;Appropriate;Follow s Commands [facility] Work Phone: Clinical Notes 06-16-2023 to 11-16-2024 Note Date & Type Note Facility 11-16-2024 Progress note [facility] 07-08-2024 Note [facility] Medical Records Department [address] [place] [address] Discharge Summary 07/08/24 1014 MR#: [id number] Acct: [id number] Name: LIGIA RIVAS Rep #: [id number] : 1960 63 From: Cate Sargent MD PCP: Dr. Pancho Tran MD Status:DIS IN Location: [place] [id number] Providers Date of Admission: 07/07/24 Date of Discharge: 07/08/24 Primary Care Physician: Dr. Pancho Tran MD Reason For Visit: METABOLIC ACIDOSIS Diagnosis Discharge Diagnosis (1) Hyponatremia: Status: Acute Code(s): E87.1 - Hypo-osmolality and hyponatremia (2) Diarrhea: Status: Acute Code(s): R19.7 - Diarrhea, unspecified (3) Acute kidney injury: Status: Acute Code(s): N17.9 - Acute kidney failure, unspecified Plan # ENRIE: Resolved. Patient hydrated with IV fluids. Will monitor. #Acute anion gap metabolic acidosis * jardiance on hold. Will likely dc at time of discharge. * Bicarb today is 13.6. Was 15.5 yesterday. Anion gap was 17 and is down to 13 today. * Continue hydration with fluid. Will switch to Ringer's lactate and trend. * #Hypokalemia: Potassium is 3.1. Replace and monitor. #Hyperthyroidism: on methimazole #Type 2 diabetes mellitus: on jardiance. ISS. Accuchecks ACHS. Also on Lantus 14 units daily. #Hypertension: on lisinopril held due to ERNIE #Class II obesity: BMi is 37.9. Complicates acute care, expected recovery and prognosis DVT prophylaxis: SCDs Medications at Discharge Home Medications albuterol sulfate 90 mcg/actuation aerosol inhaler (Ventolin HFA) 2 puff inhalation Q6H PRN shortness of breath or wheezing 05/20/21 blood-glucose transmitter (Bactest G6 Transmitter device) #1 ea 01/04/23 trazodone 150 mg tablet 75 mg PO QHS 01/04/23 glipizide 10 mg tablet, extended release 24 hr 10 mg PO BID 08/05/23 ropinirole 1 mg tablet 1 mg PO QHS 08/05/23 losartan 100 mg-hydrochlorothiazide 12.5 mg tablet 1 tab PO DAILY 10/07/23 insulin lispro 100 unit/mL subcutaneous pen (Humalog KwikPen (U-100) Insulin) 5 unit (0.05 mL) subcut TID #15 mL 12/24/23 semaglutide 2 mg/dose (8 mg/3 mL) subcutaneous pen injector (Ozempic) 2 mg (0.75 mL) subcut MILLS #9 mL 12/24/23 methimazole 10 mg tablet 20 mg (2 x 10 mg) PO DAILY #60 tabs 03/14/24 blood sugar diagnostic (KickfireTouch Ultra Test strips) #100 ea 04/13/24 cholecalciferol (vitamin D3) 25 mcg (1,000 unit) capsule 25 mcg PO QDAY 04/13/24 duloxetine 60 mg capsule,delayed release 60 mg PO DAILY #90 caps 04/13/24 potassium chloride 20 mEq tablet,extended release(part/cryst) 20 meq PO QDAY #90 tabs 04/13/24 insulin glargine 100 unit/mL (3 mL) subcutaneous pen (Lantus Solostar U-100 Insulin) 14 unit subcut DAILY 04/20/24 calcium carbonate PO 07/06/24 mecobalamin (vitamin B12) 500 mcg chewable tablet 500 mcg PO DAILY 07/06/24 Hospital Course Operations None Procedures None Summary of Care Provided Minutes Spent on Discharge: 45 Hospital Course: Patient is a 63-year-old female with a past medical history as outlined was admitted to the ED on 07/07/2024 with a complaint of diarrhea for about a week prior to admission. She has stopped taking most of her meds prior to admission due to the diarrhea. However her diarrhea worsened. She said her grandchildren which she took care of her also been sick with diarrhea. She therefore came into the ED due to the persistent diarrhea. On admission ABG showed pH of 7.2 with bicarb of 35 and creatinine of 1.5. WBC was 11.2 potassium was 3.4. A1c was 7.1. She was admitted and managed for ERNIE likely prerenal in the setting of diarrhea as well as acute metabolic acidosis likely due to the ERNIE and also likely due to Ozempic which was taken for diabetes. She was hydrated with IV fluids. Her diarrhea stopped. C. difficile and enteric pathogens were negative. She felt much better and was discharged home on 07/08/2024. Her Ozempic was discontinued. She is to follow-up with her primary care doctor within 1 to 2 weeks. Patient seen and examined prior to discharge. She had no active complaints and felt well. She had an uneventful night. Review of systems otherwise negative. Labs and vitals reviewed. Home medication reviewed and reconciled. Physical Exam Const alert, oriented x3 and no apparent distress Constitutional Narrative: class II obesity General Appearance: cooperative, comfortable, well kempt and well developed Orientation / Consciousness: awake Exam Limitations: no limitations HEENT normocephalic, head/scalp atraumatic, hearing grossly normal bilaterally, moist oral mucous membranes, oropharynx normal and gingiva normal Mouth: oral and palatal mucosa normal Eyes PERRL, EOMs intact bilaterally and conjunctivae normal Neck no lymphadenopathy and supple Lymph Lymphatic: no lymphadenopathy noted and no lymphedema noted Resp normal respiratory effort, normal air movement, no ret (more content not included)... [facility] 07-08-[address] [facility] 07-07-2024 Progress note Note Date/Time July 07, 2024 4:43pm [facility] Medical Records Department [address] [place] [address] Progress Note 07/07/24 1411 MR#: [id number] Acct: [id number] Name: LIGIA RIVAS Rep #:[id number] : 1960 63 From: Cate Sargent MD PCP: Dr. Pancho Tran MD Status:A DM IN Location: [place] [address] Subjective Subjective Patient seen and examined. She was admitted with a complaint of diarrhea. Diarrhea has now resolved. She denies any abdominal pain, fever chills or any other symptoms. Review of systems otherwise negative. Objective Data Objective Data Vital Signs: Vital Signs Temp Pulse Resp BP Pulse Ox O2 Del Method 97.9 F 93 16 132/73 H 94 Room Air 07/07/24 09:17 07/07/24 09:17 07/07/24 09:17 07/07/24 09:17 07/07/24 09:17 07/07/24 09:17 Oxygen Delivery Method Room Air Weight: 242 lb 4.608 oz Body Mass Index (BMI) 37.9 Intake & Output: Intake and Output for Last 24 Hours 07/05/24 07/06/24 07/07/24 23:59 23:59 23:59 Intake Total 1000 / 1000 1999 / 1999 Balance 1000 / 1000 1999 Lab / Micro Data 07/07/24 06:32 07/07/24 06:32 Labs: Laboratory Results - last 24 hr 07/06/24 20:05: WBC 11.2 H, RBC 6.29 H, Hgb 17.9 H, Hct 52.2 H, MCV 83.0, MCH 28.5, MCHC 34.3, RDW Std Deviation 42.5, RDW Coeff of Zachary 14.2, Plt Count 325, MPV 11.1, Immature Gran % (Auto) 0.400, Neut % (Auto) 56.3, Lymph % (Auto) 32.3,Florence % (Auto) 9.9, Eos % (Auto) 0.7, Baso % (Auto) 0.4, Absolute Neuts (auto) 6.3, Absolute Lymphs (auto) 3.61, Nucleated RBC % 0, Sodium 132 L, Potassium 3.4, Chloride 100, Carbon Dioxide 15.5 L, Anion Gap 17 H, BUN 62 H, Creatinine 1.52 H, Estim Creat Clear Calc 49.55 L, Est GFR (MDRD) Non-Af 39 L, BUN/Creatinine Ratio 40.9 H, Glucose 186 H, Calcium 9.3, Total Bilirubin 0.66, AST 29, ALT 34, Alkaline Phosphatase 133 H, Total Protein 8.8 H, Albumin 4.5, Globulin 4.3 H, Albumin/Globulin Ratio 1.0, b-Hydroxybutyric mmol/L 0.3, Free T3 pg/dL 4.1 H 07/06/24 20:46: Urine Color Yellow, Urine Clarity Clear, Urine pH 5.0, Ur Specific Simla 1.025, Urine Protein 30 H, Urine Glucose (UA) Normal, Urine Ketones Negative, Urine Occult Blood 10 H, Urine Nitrite Negative, Urine Bilirubin 1 H, Urine Urobilinogen Normal, Ur Leukocyte Esterase Negative, Urine RBC 0 SEEN, Urine WBC 0-5 SEEN, Ur Squamous Epith Cells 0-5 SEEN, Urine Bacteria1+, Hyaline Casts 5-10 SEEN, Fine Granular Casts 0-5 SEEN, Urine Mucus 0 SEEN 07/06/24 20:49: POC Glucose 189 H 07/06/24 22:08: POC Glucose 156 H 07/06/24 23:04: POC Glucose 134 H 07/07/24 00:26: POC Glucose 163 H 07/07/24 06:32: WBC 9.6, RBC 5.67 H, Hgb 16.1 H, Hct 47.3 H, MCV 83.4, MCH 28.4,MCHC 34.0, RDW Std Deviation 42.4, RDW Coeff of Zachary 14.0, Plt Count 289, MPV 11.1, Immature Gran % (Auto) 0.300, Neut % (Auto) 44.8 L, Lymph % (Auto) 43.3 H,Florence % (Auto) 9.6, Eos % (Auto) 1.7, Baso % (Auto) 0.3, Absolute Neuts (auto) 4.3, Absolute Lymphs (auto) 4.17, Nucleated RBC % 0, PT 14.4, INR 1.1, Sodium 132 L, Potassium 3.1 L, Chloride 106, Carbon Dioxide 13.6 L, Anion Gap 13, BUN 45 H, Creatinine 1.00, Estim Creat Clear Calc 75.47, Est GFR (MDRD) Non-Af 64, BUN/Creatinine Ratio 45.1 H, Glucose 154 H, Calcium 8.5, Phosphorus 3.4, Magnesium 2.2, Total Bilirubin 0.69, Direct Bilirubin 0.27, AST 23, ALT 26, Alkaline Phosphatase 112 H, Total Protein 7.3, Albumin 3.8, Globulin 3.5, Albumin/Globulin Ratio 1.1, TSH 0.617 07/07/24 07:42: POC Glucose 176 H 07/07/24 11:11: POC Glucose 196 H ABG Data ABG results: ABG 07/06/24 20:38 Specimen Type CARLOTA Sample Site Not entered O2 % 21.0 VBG pH 7.28 L VBG pO2 34 VBG HCO3 16 L VBG Total CO2 17 L VBG O2 Sat (Calc) 58 VBG Base Excess -10 L POC Mix VBG pCO2 Pt Tmp 35.0 L O2 Delivery Device Not entered Radiography Diagnostic Testing: Radiology Impression Abdomen/Pelvis CT 07/06/24 20:28 IMPRESSION: 1. Fluid contents throughout the colon, in keeping with the reported history ofdiarrheal illness. No significant inflammatory changes of the bowel, nor evidence of obstruction. 2. Colonic diverticulosis. 3. Multivessel coronary calcifications. Reading Location: [facility] Physical Exam Const alert, oriented x3 and no apparent distress Constitutional Narrative: class II obesity General Appearance: cooperative and well developed HEENT normocephalic, head/scalp atraumatic, moist oral mucous membranes, oropharynx normal and gingiva normal Eyes PERRL and EOMs intact bilaterally Neck no lymphadenopathy and supple Lymph Lymphatic: no lymphadenopathy noted and no lymphedema noted Resp normal respiratory effort, normal air movement and clear to auscultation bilaterally Cardio regular rate, regular rhythm, S1 normal heart sound, S2 normal heart sound and no murmurs GI normal to inspection, nondistended, normoactive bowel sounds, soft to palpation,non-tender and non-distended Extremity normal capillary refill, no clubbing, cyanosis or edema and no calf tenderness General Extremity: no tenderness to palpation of joints or extremities Skin General Skin Exam: no breakdown Neuro CN's II-XII intact bilaterally, no focal motor deficits and no sensory deficits noted Motor Exam: strength 5/5 throughout and general weakness Psych thought process normal, cooperative and affect normal Appearance: appropriate Assessment & Plan Assessment/Plan (1) Hyponatremia: (2) Diarrhea: (3) Acute kidney injury: PLAN: Plan # ERNIE: Resolved. Patient hydrated with IV fluids. Will monitor. #Acute anion gap metabolic acidosis * jardiance on hold. Will likely dc at time of discharge. * Bicarb today is 13.6. Was 15.5 yesterday. Anion gap was 17 and is down to 13 today. * Continue hydration with fluid. Will switch to Ringer's lactate and trend. * #Hypokalemia: Potassium is 3.1. Replace and monitor. #Hyperthyroidism: on methimazole #Type 2 diabetes mellitus: on jardiance. ISS. Accuchecks ACHS. Also on Lantus 14 units daily. #Hypertension: on lisinopril held due to ERNIE #Class II obesity: BMi is 37.9. Complicates acute care, expected recovery and prognosis DVT prophylaxis: SCDs Charges/Coding Visit Charges Inpatient E&M: 75614 Subs Hosp L2 07/07/24 1643 <Electronically signed by Cate Sargent MD> Cate Sargent MD Cosigner Signature (if applicable): CC: ~ Signed [facility] Work Phone: 1(318) 529-935205-16-2025 Progress note [facility] Medical Records Department [address] [place] [address] Progress Note 07/07/24 1411 MR#: [id number] Acct: [id number] Name: LIGIA RIVAS Rep #:[id number] : 1960 63 From: Cate Sargent MD PCP: Dr. Pancho Tran MD Status:A DM IN Location: [place] [address] Subjective Subjective Patient seen and examined. She was admitted with a complaint of diarrhea. Diarrhea has now resolved. She denies any abdominal pain, fever chills or any other symptoms. Review of systems otherwise negative. Objective Data Objective Data Vital Signs: Vital Signs Temp Pulse Resp BP Pulse Ox O2 Del Method 97.9 F 93 16 132/73 H 94 Room Air 07/07/24 09:17 07/07/24 09:17 07/07/24 09:17 07/07/24 09:17 07/07/24 09:17 07/07/24 09:17 Oxygen Delivery Method Room Air Weight: 242 lb 4.608 oz Body Mass Index (BMI) 37.9 Intake & Output: Intake and Output for Last 24 Hours 07/05/24 07/06/24 07/07/24 23:59 23:59 23:59 Intake Total 999 Balance 999 Lab / Micro Data 07/07/24 06:32 07/07/24 06:32 Labs: Laboratory Results - last 24 hr 07/06/24 20:05: WBC 11.2 H, RBC 6.29 H, Hgb 17.9 H, Hct 52.2 H, MCV 83.0, MCH 28.5, MCHC 34.3, RDW Std Deviation 42.5, RDW Coeff of Zachary 14.2, Plt Count 325, MPV 11.1, Immature Gran % (Auto) 0.400, Neut % (Auto) 56.3, Lymph % (Auto) 32.3,Florence % (Auto) 9.9, Eos % (Auto) 0.7, Baso % (Auto) 0.4, Absolute Neuts (auto) 6.3, Absolute Lymphs (auto) 3.61, Nucleated RBC % 0, Sodium 132 L, Potassium 3.4, Chloride 100, Carbon Dioxide 15.5 L, Anion Gap 17 H, BUN 62 H, Creatinine 1.52 H, Estim Creat Clear Calc 49.55 L, Est GFR (MDRD) Non-Af 39 L, BUN/Creatinine Ratio 40.9 H, Glucose 186 H, Calcium 9.3, Total Bilirubin 0.66, AST 29, ALT 34, Alkaline Phosphatase 133 H, Total Protein 8.8 H, Albumin 4.5, Globulin 4.3 H, Albumin/Globulin Ratio 1.0, b-Hydroxybutyric mmol/L 0.3, Free T3 pg/dL 4.1 H 07/06/24 20:46: Urine Color Yellow, Urine Clarity Clear, Urine pH 5.0, Ur Specific Simla 1.025, Urine Protein 30 H, Urine Glucose (UA) Normal, Urine Ketones Negative, Urine Occult Blood 10 H, UrineNitrite Negative, Urine Bilirubin 1 H, Urine Urobilinogen Normal, Ur Leukocyte Esterase Negative, Urine RBC 0 SEEN, Urine WBC 0-5 SEEN, Ur Squamous Epith Cells 0-5 SEEN, Urine Bacteria1+, Hyaline Casts 5-10 SEEN, Fine Granular Casts 0-5 SEEN, Urine Mucus 0 SEEN 07/06/24 20:49: POC Glucose 189 H 07/06/24 22:08: POC Glucose 156 H 07/06/24 23:04: POC Glucose 134 H 07/07/24 00:26: POC Glucose 163 H 07/07/24 06:32: WBC 9.6, RBC 5.67 H, Hgb 16.1 H, Hct 47.3 H, MCV 83.4, MCH 28.4,MCHC 34.0, RDW Std Deviation 42.4, RDW Coeff of Zachary 14.0, Plt Count 289, MPV 11.1, Immature Gran % (Auto) 0.300, Neut %(Auto) 44.8 L, Lymph % (Auto) 43.3 H,Florence % (Auto) 9.6, Eos % (Auto) 1.7, Baso % (Auto) 0.3, Absolute Neuts (auto) 4.3, Absolute Lymphs (auto) 4.17, Nucleated RBC % 0, PT 14.4, INR 1.1, Sodium 132 L,Potassium 3.1 L, Chloride 106, Carbon Dioxide 13.6 L, Anion Gap 13, BUN 45 H, Creatinine 1.00, Estim Creat Clear Calc 75.47, Est GFR (MDRD) Non-Af 64, BUN/Creatinine Ratio 45.1 H, Glucose 154 H, Calcium 8.5, Phosphorus 3.4, Magnesium 2.2, Total Bilirubin 0.69, Direct Bilirubin 0.27, AST 23, ALT 26, Alkaline Phosphatase 112 H, Total Protein 7.3, Albumin 3.8, Globulin 3.5, Albumin/Globulin Ratio 1.1, TSH 0.617 07/07/24 07:42: POC Glucose 176 H 07/07/24 11:11: POC Glucose 196 H ABG Data ABG results: ABG 07/06/24 20:38 Specimen Type CARLOTA Sample Site Not entered O2 % 21.0 VBG pH 7.28 L VBG pO2 34 VBG HCO3 16 L VBG Total CO2 17 L VBG O2 Sat (Calc) 58 VBG Base Excess -10 L POC Mix VBG pCO2 Pt Tmp 35.0 L O2 Delivery Device Not entered Radiography Diagnostic Testing: Radiology Impression Abdomen/Pelvis CT 07/06/24 20:28 IMPRESSION: 1. Fluid contents throughout the colon, in keeping with the reported history ofdiarrheal illness. No significant inflammatory changes of the bowel, nor evidence of obstruction. 2. Colonic diverticulosis. 3. Multivessel coronary calcifications. Reading Location: [facility] Physical Exam Const alert, oriented x3 and no apparent distress Constitutional Narrative: class II obesity General Appearance: cooperative and well developed HEENT normocephalic, head/scalp atraumatic, moist oral mucous membranes, oropharynx normal and gingiva normal Eyes PERRL and EOMs intact bilaterally Neck no lymphadenopathy and supple Lymph Lymphatic: no lymphadenopathy noted and no lymphedema noted Resp normal respiratory effort, normal air movement and clear to auscultation bilaterally Cardio regular rate, regular rhythm, S1 normal heart sound, S2 normal heart sound and no murmurs GI normal to inspection, nondistended, normoactive bowel sounds, soft to palpation,non-tender and non-distended Extremity normal capillary refill, no clubbing, cyanosis or edema and no calf tenderness General Extremity: no tenderness to palpation of joints or extremities Skin General Skin Exam: no breakdown Neuro CN's II-XII intact bilaterally, no focal motor deficits and no sensory deficits noted Motor Exam: strength 5/5 throughout and general weakness Psych thought process normal, cooperative and affect normal Appearance: appropriate Assessment & Plan Assessment/Plan (1) Hyponatremia: (2) Diarrhea: (3) Acute kidney injury: PLAN: Plan # ERNIE: Resolved. Patient hydrated with IV fluids. Will monitor. #Acute anion gap metabolic acidosis * jardiance on hold. Will likely dc at time of discharge. * Bicarb today is 13.6. Was 15.5 yesterday. Anion gap was 17 and is down to 13 today. * Continue hydration with fluid. Will switch to Ringer's lactate and trend. * #Hypokalemia: Potassium is 3.1. Replace and monitor. #Hyperthyroidism: on methimazole #Type 2 diabetes mellitus: on jardiance. ISS. Accuchecks ACHS. Also on Lantus 14 units daily. #Hypertension: on lisinopril held due to ERNIE #Class II obesity: BMi is 37.9. Complicates acute care, expected recovery and prognosis DVT prophylaxis: SCDs Charges/Coding Visit Charges Inpatient E&M: 23132 Subs Hosp L2 07/07/24 1643 Cate Sargent MD Cosigner Signature (if applicable): CC: ~ Signed [facility]05-16-2025 History and physical note Author Alejandra Weiner [facility] Note Date/Time July 07, 2024 12:[address] [facility] Medical Records Department [address] [place] [address] H&P Exam - Hospitalist 07/07/24 0007 MR#: [id number] Acct: [id number] Name: LIGIA RIVAS Rep #:[id number] : 1960 63 From: Alejandra Weiner MD PCP: Dr. Pancho Tran MD Status:A DM YECENIA Location: [place] [address] HPI - General General Date of Admission: 07/06/24 Date of Service: 07/07/24 Chief Complaint: metabolic acidosis HPI Narrative LIGIA RIVAS, is a 63 F with past medical history of type 2 diabetes on Ozempic, Jardiance, Lantus and hyperthyroidism on methimazole, obesity, hypertension on lisinopril with hydrochlorothiazide Jardiance related recurrent vaginal yeast infection who was referred to the ED for concerns regarding metabolic acidosis in the setting of ongoing diarrhea for the last week with associated nausea, decreased p.o. intake. She has stopped taking most of her medications for the last one week due to her symptoms. Per the patient appetite has been steadily decreasing but over the last week she has been having more diarrhea or vomiting anorexia. Her grandchildren are also sick recently. Overall her nutritional intake is on optimum as she is taking care of 3 grandchildren is not able to follow-up on low-carb diet. At the time of evaluation in the ED she was noted to have a blood gas of pH 7.2 with PCO2 of 35 and PO2 of 33, bicarb 16.4, urine was negative for ketones however was BUN was 62 and creatinine was elevated to 1.5. WBC 11.2, hemoglobin 17.9, platelet 325, sodium 132, potassium 3.4, anion gap of 17, her BUN dylan from 56-62 during her ED evaluation and creatinine was 1.5 despite fluid therapy. Last A1c checked on 07/06 was 7.1 calcium 9.3, alkaline phosphatase 133, total protein 8.8, albumin 4.5. Urine analysis negative for infection urine ketones negative. POC glucose was 134 [facility] Medical History Anxiety and depression Health care maintenance Wears contact lenses Depression Thyroid disease Insulin dependent diabetes mellitus Ambulates with cane Arthritis PONV (postoperative nausea and vomiting) High cholesterol Dietary restriction Non-smoker CPAP (continuous positive airway pressure) dependence Sleep apnea History of stress test Right rotator cuff tear Osteoarthritis of left hip Left hip pain Impingement of right shoulder Right shoulder pain Diabetic neuropathy Mild depression Hyperlipidemia GERD (gastroesophageal reflux disease) Muscle cramps Bilateral lower extremity edema Endometrial thickening on ultrasound Patellar fracture HTN (hypertension) Type 2 diabetes mellitus GITA (obstructive sleep apnea) Home Medications ?Medication ?Instructions ?Recorded ?Last Taken ?Type albuterol sulfate 90 mcg/actuation 2 puff inhalation Q 6H PRN 05/20/21 07/03/24 History aerosol inhaler (Ventolin HFA) shortness of breath or wheezing blood-glucose transmitter (Dexcom #1 ea 01/04/23 Unkno wn History G6 Transmitter device) trazodone 150 mg tablet 75 mg PO QHS 01/04/23 History glipizide 10 mg tablet, extended 10 mg PO BID 08/05/23 07/03/24 History release 24 hr ropinirole 1 mg tablet 1 mg PO QHS 08/05/23 5 History losartan 100 1 tab PO DAILY 10/07/2306/22 History mg-hydrochlorothiazide 12.5 mg tablet insulin lispro 100 unit/mL 5 unit (0.05 mL) subcut TID #15 mL 12/24/23 Unknown Rx subcutaneous pen (Humalog KwikPen (U-100) Insulin) semaglutide 2 mg/dose (8 mg/3 mL) 2 mg (0.75 mL) subcu t MILLS #9 mL 12/24/23 Unknown Rx subcutaneous pen injector (Ozempic) empagliflozin 25 mg tablet 25 mg PO QDAY #30 tabs 12/2307/06/24 Rx (Jardiance) Held on 07/06/24. Instructions: Ordered methimazole 10 mg tablet 20 mg (2 x 10 mg) PO DAILY # 60 tabs 03/14/24 07/03/24 Rx blood sugar diagnostic (OneTouch #100 ea 04/13/24 Unkn own Rx Ultra Test strips) cholecalciferol (vitamin D3) 25 25 mcg PO QDAY 5 07/03/24 History mcg (1,000 unit) capsule duloxetine 60 mg capsule,delayed 60 mg PO DAILY #90 ca ps 04/13/24 07/03/24 Rx release potassium chloride 20 mEq 20 meq PO QDAY #90 tabs 03/2607/03/24 Rx tablet,extended release(part/cryst) insulin glargine 100 unit/mL (3 14 unit subcut DAILY 0 04/20/24 Unknown History mL) subcutaneous pen (Lantus Solostar U-100 Insulin) calcium carbonate PO 07/06/24 Unknown History mecobalamin (vitamin B12) 500 mcg 500 mcg PO DAILY 07/03/24 History chewable tablet Allergy/AdvReac Type Severity Reaction Status Date / Time No Known Allergies Allergy Verified 07/06/24 17:47 Family History Father Diabetes Hypertension COPD (chronic obstructive pulmonary disease) Heart disease Kidney disease Brother Heart disease Hypertension Diabetes Pancreatic cancer Mother A-fib Heart disease Surgical History History of total left hip replacement History of surgical procedure on eye proper using laser S/P foot surgery, left Tubal ligation status H/O section Hx of cholecystectomy H/O foot surgery Social History adopted: No household members: spouse, family and other details: has step son and custody of 3 grandchildren housing: house number of children: 3 current occupational status: employed current occupation: [employer] living pets and animals: Yes pets and animals: cat(s) and dog(s) history of recent travel: Yes () out of state: Yes out of country: No Smoking Status: Never smoker Electronic Cigarette Use: not used second hand exposure: No alcohol intake: never substance use type: does not use well-balanced diet: about half the time caffeine: Yes what type of physical activity do you participate in: none jered/anabaptist: Jain seatbelt use: sometimes do you feel safe at home: Yes additional social history: - Dionisio ROS Review of Systems ROS Unobtainable: Denies due to encephalopathy, due to endotracheal tube, due tomental condition, due to mental status or other Constitutional Constitutional: Denies anorexia, change in weight, chills, fatigue, fever(s), malaise, night sweats, weakness or other Eyes Eyes: Denies blurry vision, change in eye color, change in vision, discharge from eye(s), double vision, erythema, eye pain, loss of vision or other ENT HEENT: Denies abnormal hearing, dysphagia, ear pain, epistaxis, headache(s), hearing loss, nasal congestion, nasal discharge, post nasal drip, sinus pressure, sore throat or other Cardiovascular Cardiovascular: Denies chest pain, claudication, dyspnea on exertion, edema, lightheadedness, orthopnea, palpitations, paroxysmal nocturnal dyspnea, rapid heart rate, syncope or other Respiratory/Chest Respiratory/Chest: Denies cough, dyspnea, excessive phlegm production, hemoptysis, productive cough, shortness of breath at rest, shortness of breath with exertion, wheezing or other Gastrointestinal Gastrointestinal: Reports diarrhea, dyspepsia, nausea and vomiting Genitourinary Genitourinary: Denies burning urination, difficulty urinating, dysuria, hematuria, nocturia, urinary frequency, urinary hesitancy, urinary incontinence,urinary urgency or other Musculoskeletal Musculoskeletal: Denies arthralgias, back pain, joint pain, joint stiffness, joint swelling, myalgias, neck pain or other Neurologic Neurologic: Denies abnormal gait, abnormal speech, confusion, disequilibrium, dizziness, focal weakness, headache(s), numbness, paresthesias, seizure-like activity, seizures, syncope, tingling, tremor(s) or other Psychiatric Psychiatric: Denies anxiety, depression, homicidal ideation, suicidal ideation or other Endocrine Endocrinology: Denies change in body appearance, cold intolerance, excessive sweating, heat intolerance, polydipsia, polyuria or other Hematologic/Lymphatic Hematologic/Lymphatic: Denies anemia, easy bleeding, easy bruising, lymphadenopathy or other Allergic/Immunologic Allergic/Immunologic: Denies rhinitis, hives, eczemia, asthma or other Vital Signs Vital Signs Vital Signs: 07/06/24 17:46 07/06/24 20:25 07/06/24 21:33 Temperature 97.2 F L Temperature Source Temporal Pulse Rate 111 H 93 Respiratory Rate 16 16 Respiratory Effort Normal Respiratory Pattern Normal Blood Pressure 146/92 H 92/67 Blood Pressure Mean 110 75 Pulse Ox 98 98 Oxygen Delivery Method Room Air Room Air 07/06/24 22:00 07/06/24 23:01 Temperature 97.9 F Temperature Source Pulse Rate 93 87 Respiratory Rate 16 24 H Respiratory Effort Respiratory Pattern Blood Pressure 145/98 H 125/95 H Blood Pressure Mean 113 105 Pulse Ox 97 100 Oxygen Delivery Method Room Air Weight Weight: 241 lb 6.499 oz Body Mass Index (BMI) 37.8 Physical Exam Const alert and oriented x3 HEENT normocephalic and head/scalp atraumatic Eyes PERRL and EOMs intact bilaterally Neck no lymphadenopathy and supple Resp normal respiratory effort and no retractions Cardio regular rate and regular rhythm GI normal to inspection, nondistended, normoactive bowel sounds, soft to palpation and non-tender Neuro oriented x3 and CN's II-XII intact bilaterally Psych affect normal Results Medical Records Data Attestation: I reviewed the patient's medical records Lab / Micro Data Attestation: I reviewed the patient's lab results. 07/06/24 20:05 07/06/24 20:05 Labs: Laboratory Results - last 24 hr 07/06/24 20:05: WBC 11.2 H, RBC 6.29 H, Hgb 17.9 H, Hct 52.2 H, MCV 83.0, MCH 28.5, MCHC 34.3, RDW Std Deviation 42.5, RDW Coeff of Zachary 14.2, Plt Count 325, MPV 11.1, Immature Gran % (Auto) 0.400, Neut % (Auto) 56.3, Lymph % (Auto) 32.3,Florence % (Auto) 9.9, Eos % (Auto) 0.7, Baso % (Auto) 0.4, Absolute Neuts (auto) 6.3, Absolute Lymphs (auto) 3.61, Nucleated RBC % 0, Sodium 132 L, Potassium 3.4, Chloride 100, Carbon Dioxide 15.5 L, Anion Gap 17 H, BUN 62 H, Creatinine 1.52 H, Estim Creat Clear Calc 49.55 L, Est GFR (MDRD) Non-Af 39 L, BUN/Creatinine Ratio 40.9 H, Glucose 186 H, Calcium 9.3, Total Bilirubin 0.66, AST 29, ALT 34, Alkaline Phosphatase 133 H, Total Protein 8.8 H, Albumin 4.5, Globulin 4.3 H, Albumin/Globulin Ratio 1.0, b-Hydroxybutyric mmol/L 0.3 07/06/24 20:46: Urine Color Yellow, Urine Clarity Clear, Urine pH 5.0, Ur Specific Simla 1.025, Urine Protein 30 H, Urine Glucose (UA) Normal, Urine Ketones Negative, Urine Occult Blood 10 H, Urine Nitrite Negative, Urine Bilirubin 1 H, Urine Urobilinogen Normal, Ur Leukocyte Esterase Negative, Urine RBC 0 SEEN, Urine WBC 0-5 SEEN, Ur Squamous Epith Cells 0-5 SEEN, Urine Bacteria1+, Hyaline Casts 5-10 SEEN, Fine Granular Casts 0-5 SEEN, Urine Mucus 0 SEEN 07/06/24 20:49: POC Glucose 189 H 07/06/24 22:08: POC Glucose 156 H 07/06/24 23:04: POC Glucose 134 H ABG Data ABG results: ABG 07/06/24 20:38 Specimen Type CARLOTA Sample Site Not entered O2 % 21.0 VBG pH 7.28 L VBG pO2 34 VBG HCO3 16 L VBG Total CO2 17 L VBG O2 Sat (Calc) 58 VBG Base Excess -10 L POC Mix VBG pCO2 Pt Tmp 35.0 L O2 Delivery Device Not entered Imaging Radiology Impression Abdomen/Pelvis CT 07/06/24 20:28 IMPRESSION: 1. Fluid contents throughout the colon, in keeping with the reported history ofdiarrheal illness. No significant inflammatory changes of the bowel, nor evidence of obstruction. 2. Colonic diverticulosis. 3. Multivessel coronary calcifications. Reading Location: [id number] Assessment & Plan Assessment/Plan (1) Acute kidney injury: PLAN: Plan 63-year-old female with a history of type 2 diabetes, hyperthyroidism, hypertension presents to the ED with concerns regarding metabolic acidosis as well as ERNIE. The likely reason for her ERNIE is related to her ongoing diarrhea, diuretics for hypertension as well as decreased p.o. intake possibly secondary to the infection as well as Ozempic. Metabolic acidosis could be because of starvation but there is no associated ketosis, differentials also include euglycemic DKA with anion gap. She has not been taking any of her medications for the last 1 week and that may explain why her laboratory findings are not consistent with any 1 particular diagnosis. #ERNIE - Likely prerenal - Normal saline at the rate 100 mL/h - Repeat BMP in the morning - Admit for further observation #Metabolic acidosis - No urine ketones present - Euglycemic at this time - Hold Ozempic at the time of discharge - Will follow-up with endocrinology as an outpatient - Nutrition consult for diabetic education #Hyperthyroidism - Continue methimazole - TSH, T3-T4 levels # Type 2 - Continue insulin, - Hold Ozempic and Jardiance for now # HTN - continue to hold medications for now - can discharge on lisinopril if the creatinine improves with fluid therapy # Obesity - continue outpatient evaluation by endocrinology # GITA - Noted # Asthma - asymptomatic at present # DVT: low risk # Code: Full code 07/07/24 0034 <Electronically signed by Alejandra Weiner MD> Cosigner Signature (if applicable): CC: Dr. Alejandra Weiner MD; Dr. Pancho Tran MD~ Signed [facility] Work Phone: [phone] Discharge summary Author [facility] Note Date/Time July 06, 2024 11:[address] [facility] Medical Records Department [address] [place] [address] Emergency Department Summary 07/06/24 MR#: [id number] Acct: [id number] Name: LIGIA RIVAS Rep #:[id number] : 1960 63 From: Mahendra Devine MD PCP: Dr. Pancho Tran MD Status:R EG ER Location: ED ADDENDUM by Dr. Mahendra Devine MD on 07/06/24 at 2303 EKG was obtained and interpreted by myself independently as sinus tachycardia at103 b[address] changes. No STEMI. 07/06/24 2303<Electronically signed by Mahendra Devine MD> Cosigner Signature (if applicable): cc: Dr. Pancho Tran MD ~* Signed HPI History of Present Illness Chief Complaint: Abn Labs Narrative Narrative: 63-year-old female past medical history of diabetes, on Ozempic as well as Lantus presents at the direction of her primary care provider's office with concern for metabolic acidosis. She and her daughter relate history that over the last week she has had abdominal pain, nausea, vomiting, and diarrhea, she started to improve, however she still feels tired and fatigued with low energy. She saw her auto damage adjuster today, and had laboratory work drawn. She states that they are trying to wean her off Ozempic and insulin. She states that her blood sugars have been controlled recently. She does have type 2 diabetes, but was told that there is concerned that she has metabolic acidosis. This was based off the laboratory work that was drawn today. [facility] Medical History Anxiety and depression Health care maintenance Wears contact lenses Depression Thyroid disease Insulin dependent diabetes mellitus Ambulates with cane Arthritis PONV (postoperative nausea and vomiting) High cholesterol Dietary restriction Non-smoker CPAP (continuous positive airway pressure) dependence Sleep apnea History of stress test Right rotator cuff tear Osteoarthritis of left hip Left hip pain Impingement of right shoulder Right shoulder pain Diabetic neuropathy Mild depression Hyperlipidemia GERD (gastroesophageal reflux disease) Muscle cramps Bilateral lower extremity edema Endometrial thickening on ultrasound Patellar fracture HTN (hypertension) Type 2 diabetes mellitus GITA (obstructive sleep apnea) Home Medications ?Medication ?Instructions ?Recorded ?Last Taken ?Type albuterol sulfate 90 mcg/actuation 2 puff inhalation Q 6H PRN 05/20/21 07/03/24 History aerosol inhaler (Ventolin HFA) shortness of breath or wheezing blood-glucose transmitter (Dexcom #1 ea 01/04/23 Unkno wn History G6 Transmitter device) trazodone 150 mg tablet 75 mg PO QHS 01/04/23 History glipizide 10 mg tablet, extended 10 mg PO BID 08/05/23 07/03/24 History release 24 hr ropinirole 1 mg tablet 1 mg PO QHS 08/05/23 05 5 History losartan 100 1 tab PO DAILY 10/07/2306/22 History mg-hydrochlorothiazide 12.5 mg tablet insulin lispro 100 unit/mL 5 unit (0.05 mL) subcut TID #15 mL 12/24/23 Unknown R x subcutaneous pen (Humalog KwikPen (U-100) Insulin) semaglutide 2 mg/dose (8 mg/3 mL) 2 mg (0.75 mL) subcu t MILLS #9 mL 12/24/23 Unknown Rx subcutaneous pen injector (Ozempic) empagliflozin 25 mg tablet 25 mg PO QDAY #30 tabs 12/2307/06/24 Rx (Jardiance) Held on 07/06/24. Instructions: MD Ordered methimazole 10 mg tablet 20 mg (2 x 10 mg) PO DAILY # 60 tabs 03/14/24 07/03/24 Rx blood sugar diagnostic (OneTouch #100 ea 04/13/24 Unkn own Rx Ultra Test strips) cholecalciferol (vitamin D3) 25 25 mcg PO QDAY 5 07/03/24 History mcg (1,000 unit) capsule duloxetine 60 mg capsule,delayed 60 mg PO DAILY #90 ca ps 04/13/24 07/03/24 Rx release potassium chloride 20 mEq 20 meq PO QDAY #90 tabs 03/2607/03/24 Rx tablet,extended release(part/cryst) insulin glargine 100 unit/mL (3 14 unit subcut DAILY 0 04/20/24 Unknown History mL) subcutaneous pen (Lantus Solostar U-100 Insulin) calcium carbonate PO 07/06/24 Unknown History mecobalamin (vitamin B12) 500 mcg 500 mcg PO DAILY 07/03/24 History chewable tablet Allergy/AdvReac Type Severity Reaction Status Date / Time No Known Allergies Allergy Verified 07/06/24 17:47 Family History Father Diabetes Hypertension COPD (chronic obstructive pulmonary disease) Heart disease Kidney disease Brother Heart disease Hypertension Diabetes Pancreatic cancer Mother A-fib Heart disease Surgical History History of total left hip replacement History of surgical procedure on eye proper using laser S/P foot surgery, left Tubal ligation status H/O section Hx of cholecystectomy H/O foot surgery Social History adopted: No household members: spouse, family and other details: has step son and custody of 3 grandchildren housing: house number of children: 3 current occupational status: employed current occupation: [employer] living pets and animals: Yes pets and animals: cat(s) and dog(s) history of recent travel: Yes () out of state: Yes out of country: No Smoking Status: Never smoker Electronic Cigarette Use: not used second hand exposure: No alcohol intake: never substance use type: does not use well-balanced diet: about half the time caffeine: Yes what type of physical activity do you participate in: none jered/anabaptist: Jain seatbelt use: sometimes do you feel safe at home: Yes additional social history: - Dionisio ROS ROS ED ROS Narrative Review for nausea, vomiting, diarrhea, and abdominal pain for the last week, improving. No fevers or chills. No shortness of breath or chest pain. No dysuria or hematuria. Endorses fatigue and generalized weakness. EXAM Physical Exam Narrative Exam Narrative: Afebrile. Vital signs noted. Nontoxic-appearing. Cardiovascular examination reveals mild tachycardia. Lungs clear to auscultation bilaterally. Abdomen is soft and nontender with positive bowel sounds. No guarding or rebound. Neurological examination is nonfocal and nonlateralizing. She is awake, alert, and interactive, and answering questions appropriately. Const Vital Signs: 07/06/24 17:46 07/06/24 20:25 07/06/24 21:33 Temperature 97.2 F L Temperature Source Temporal Pulse Rate 111 H 93 Respiratory Rate 16 16 Respiratory Effort Normal Respiratory Pattern Normal Blood Pressure 146/92 H 92/67 Blood Pressure Mean 110 75 Pulse Ox 98 98 Oxygen Delivery Method Room Air Room Air 07/06/24 22:00 Temperature Temperature Source Pulse Rate 93 Respiratory Rate 16 Respiratory Effort Respiratory Pattern Blood Pressure 145/98 H Blood Pressure Mean 113 Pulse Ox 97 Oxygen Delivery Method Room Air MDM MDM MDM Narrative Medical decision making narrative: Differential diagnosis includes but not limited to starvation ketosis versus dehydration versus other electrolyte abnormality versus diabetic ketoacidosis versus hyperosmolar nonketotic state. I reviewed her labs from today both in the computer and on the patient's telephone. She had a CO2 of 11 as well as an elevated blood sugar with elevated anion gap of 19. I can see why there was concern for metabolic acidosis. She may have been mildly dehydrated with a sodium of 132. She will be bolused normal saline 2 L intravenously and DKA workup started. Repeat laboratories will be drawn as well including CBC and CMPas well as beta hydroxybutyrate and venous blood gas to check her pH. I reviewed her venous blood gas and she has a pH of 7.277 with CO2 of 35 and PO2of 33. HCO3 negative is 16.4 and low. I reviewed her laboratory work in WBC count 11.2 which think is nonspecific, hemoglobin 17.9 and hemoconcentrated withhematocrit 52.2 insistent with dehydration, platelet count normal at 325. Electrolyte panel shows hyponatremia with sodium of 132 but normal potassium of 3.4, CO2 is low at 15.5 with BUN of 62 and creatinine elevated at 1.52. When compared to prior labs this is an acute on kidney injury and slightly worsened from this morning. Glucose is elevated at 186 and anion gap elevated at 17 but her beta hydroxybutyrate is 0.3 and normal. Urinalysis is negative for ketones. There are 0-5 WBCs. I do not feel that she requires antibiotics for UTI. I reviewed the radiology report of the CT of the abdomen and pelvis and there is no acute process but she does have a diarrheal illness, no thickened colon wall,no obstruction. Given her acute kidney injury and dehydration along with mild acidosis, I will discuss patient with the hospitalist for admission versus observation. Patient discussed with Dr. Weiner. Disposition is assigned to observation in stable condition. History & Record Review Discussion w/independent historian: Patient Additional record(s) reviewed:: Prior labs Lab Data Attestation: I reviewed the patient's lab results. Labs: Laboratory Results - last 24 hr 07/06/24 07/06/24 07/06/24 20:05 20:46 20:49 WBC 11.2 H RBC 6.29 H Hgb 17.9 H Hct 52.2 H MCV 83.0 MCH 28.5 MCHC 34.3 RDW Std Deviation 42.5 RDW Coeff of Zachary 14.2 Plt Count 325 MPV 11.1 Immature Gran % (Auto) 0.400 Neut % (Auto) 56.3 Lymph % (Auto) 32.3 Florence % (Auto) 9.9 Eos % (Auto) 0.7 Baso % (Auto) 0.4 Absolute Neuts (auto) 6.3 Absolute Lymphs (auto) 3.61 Nucleated RBC % 0 Sodium 132 L Potassium 3.4 Chloride 100 Carbon Dioxide 15.5 L Anion Gap 17 H BUN 62 H Creatinine 1.52 H Estim Creat Clear Calc 49.55 L Est GFR (MDRD) Non-Af 39 L BUN/Creatinine Ratio 40.9 H Glucose 186 H Calcium 9.3 Total Bilirubin 0.66 AST 29 ALT 34 Alkaline Phosphatase 133 H Total Protein 8.8 H Albumin 4.5 Globulin 4.3 H Albumin/Globulin Ratio 1.0 b-Hydroxybutyric mmol/L 0.3 Urine Color Yellow Urine Clarity Clear Urine pH 5.0 Ur Specific Simla 1.025 Urine Protein 30 H Urine Glucose (UA) Normal Urine Ketones Negative Urine Occult Blood 10 H Urine Nitrite Negative Urine Bilirubin 1 H Urine Urobilinogen Normal Ur Leukocyte Esterase Negative Urine RBC 0 SEEN Urine WBC 0-5 SEEN Ur Squamous Epith Cells 0-5 SEEN Urine Bacteria 1+ Hyaline Casts 5-10 SEEN Fine Granular Casts 0-5 SEEN Urine Mucus 0 SEEN POC Glucose 189 H 07/06/24 22:08 WBC RBC Hgb Hct MCV MCH MCHC RDW Std Deviation RDW Coeff of Zachary Plt Count MPV Immature Gran % (Auto) Neut % (Auto) Lymph % (Auto) Florence % (Auto) Eos % (Auto) Baso % (Auto) Absolute Neuts (auto) Absolute Lymphs (auto) Nucleated RBC % Sodium Potassium Chloride Carbon Dioxide Anion Gap BUN Creatinine Estim Creat Clear Calc Est GFR (MDRD) Non-Af BUN/Creatinine Ratio Glucose Calcium Total Bilirubin AST ALT Alkaline Phosphatase Total Protein Albumin Globulin Albumin/Globulin Ratio b-Hydroxybutyric mmol/L Urine Color Urine Clarity Urine pH Ur Specific Simla Urine Protein Urine Glucose (UA) Urine Ketones Urine Occult Blood Urine Nitrite Urine Bilirubin Urine Urobilinogen Ur Leukocyte Esterase Urine RBC Urine WBC Ur Squamous Epith Cells Urine Bacteria Hyaline Casts Fine Granular Casts Urine Mucus POC Glucose 156 H ABG Data ABG results: ABG 07/06/24 20:38 Specimen Type CARLOTA Sample Site Not entered O2 % 21.0 VBG pH 7.28 L VBG pO2 34 VBG HCO3 16 L VBG Total CO2 17 L VBG O2 Sat (Calc) 58 VBG Base Excess -10 L POC Mix VBG pCO2 Pt Tmp 35.0 L O2 Delivery Device Not entered Radiography Diagnostic Testing: Clinical Impression(s) from Imaging Studies Abdomen/Pelvis CT 07/06/24 20:28 IMPRESSION: 1. Fluid contents throughout the colon, in keeping with the reported history ofdiarrheal illness. No significant inflammatory changes of the bowel, nor evidence of obstruction. 2. Colonic diverticulosis. 3. Multivessel coronary calcifications. Reading Location: [id number] Management Discussion w/another healthcare provider: Hospitalist (Dr. Weiner) Discharge Plan Dx/Rx/DC Orders Clinical Impression: Diarrhea, Hyponatremia, Acute kidney injury Disposition Disposition: Acute Care Hospital [facility] What to do if you have Problems For any increased pain, shortness of breath, bleeding, nausea or vomiting, chestpain, or any unexpected problems, contact your Primary Care Provider. Call [facility] ([phone]) or report to the closest Emergency Room. Call 911 if necessary. 07/06/242302 <Electronically signed by Mahendra Devine MD> Cosigner Signature (if applicable): CC: Dr. Pancho Tran MD ~ Signed [facility] Work Phone: [phone] History and physical note [facility] Medical Records Department [address] [place] [id number] H&P Exam - Hospitalist 07/07/24 0007 MR#: [id number] Acct: [id number] Name: LIGIA RIVAS Rep #:[id number] : 1960 63 From: Alejandra Weiner MD PCP: Dr. Pancho Tran MD Status:A DM YECENIA Location: [place] [address] HPI - General General Date of Admission: 07/06/24 Date of Service: 07/07/24 Chief Complaint: metabolic acidosis HPI Narrative LIGIA RIVAS, is a 63 F with past medical history of type 2 diabetes on Ozempic, Jardiance, Lantusand hyperthyroidism on methimazole, obesity, hypertension on lisinopril with hydrochlorothiazide Jardiance related recurrent vaginal yeast infection who was referred to the ED for concerns regarding m etabolic acidosis in the setting of ongoing diarrhea for the last week with associated nausea, decreased p.o. intake. She has stopped taking most of her medications for the last one week due to her symptoms. Per the patient appetite has been steadily decreasing but over the last week she has been having more diarrhea or vomiting anorexia. Her grandchildren are also sick recently. Overall her nutritional intake is on optimum as she is taking care of 3 grandchildren is not able to follow-up on low-carb diet. At the time of evaluation in the ED she was noted to have a blood gas of pH 7.2 with PCO2 of 35 andPO2 of 33, bicarb 16.4, urine was negative for ketones however was BUN was 62 and creatinine was elevated to 1.5. WBC 11.2, hemoglobin 17.9, platelet 325, sodium 132, potassium 3.4, anion gap of 17, her BUN dylan from 56-62 during her ED evaluation and creatinine was 1.5 despite fluid therapy. Last A1c checked was 7.1 calcium 9.3, alkaline phosphatase 133, total protein 8.8, albumin 4.5. Urine analysis negative for infection urine ketones negative. POC glucose was 134 [facility] Medical History Anxiety and depression Health care maintenance Wears contact lenses Depression Thyroid disease Insulin dependent diabetes mellitus Ambulates with cane Arthritis PONV (postoperative nausea and vomiting) High cholesterol Dietary restriction Non-smoker CPAP (continuous positive airway pressure) dependence Sleep apnea History of stress test Right rotator cuff tear Osteoarthritis of left hip Left hip pain Impingement of right shoulder Right shoulder pain Diabetic neuropathy Mild depression Hyperlipidemia GERD (gastroesophageal reflux disease) Muscle cramps Bilateral lower extremity edema Endometrial thickening on ultrasound Patellar fracture HTN (hypertension) Type 2 diabetes mellitus GITA (obstructive sleep apnea) Home Medications ?Medication ?Instructions ?Recorded ?Last Taken ?Type albuterol sulfate 90 mcg/actuation 2 puff inhalation Q 6H PRN 05/20/21 07/03/24 History aerosol inhaler (Ventolin HFA) shortness of breath or wheezing blood-glucose transmitter (Dexcom #1 ea 01/04/23 Unkno wn History G6 Transmitter device) trazodone 150 mg tablet 75 mg PO QHS 01/04/23 History glipizide 10 mg tablet, extended 10 mg PO BID 08/05/23 07/03/24 History release 24 hr ropinirole 1 mg tablet 1 mg PO QHS 08/05/23 5 History losartan 100 1 tab PO DAILY 10/07/2306/22 History mg-hydrochlorothiazide 12.5 mg tablet insulin lispro 100 unit/mL 5 unit (0.05 mL) subcut TID #15 mL 12/24/23 Unknown Rx subcutaneous pen (Humalog KwikPen (U-100) Insulin) semaglutide 2 mg/dose (8 mg/3 mL) 2 mg (0.75 mL) subcu t MILLS #9 mL 12/24/23 Unknown Rx subcutaneous pen injector (Ozempic) empagliflozin 25 mg tablet 25 mg PO QDAY #30 tabs 12/2307/06/24 Rx (Jardiance) Held on 07/06/24. Instructions: Ordered methimazole 10 mg tablet 20 mg (2 x 10 mg) PO DAILY # 60 tabs 03/14/24 07/03/24 Rx blood sugar diagnostic (OneTouch #100 ea 04/13/24 Unkn own Rx Ultra Test strips) cholecalciferol (vitamin D3) 25 25 mcg PO QDAY 5 07/03/24 History mcg (1,000 unit) capsule duloxetine 60 mg capsule,delayed 60 mg PO DAILY #90 ca ps 04/13/24 07/03/24 Rx release potassium chloride 20 mEq 20 meq PO QDAY #90 tabs 03/2607/03/24 Rx tablet,extended release(part/cryst) insulin glargine 100 unit/mL (3 14 unit subcut DAILY 0 04/20/24 Unknown History mL) subcutaneous pen (Lantus Solostar U-100 Insulin) calcium carbonate PO 07/06/24 Unknown History mecobalamin (vitamin B12) 500 mcg 500 mcg PO DAILY 07/03/24 History chewable tablet Allergy/AdvReac Type Severity Reaction Status Date / Time No Known Allergies Allergy Verified 07/06/24 17:47 Family History Father Diabetes Hypertension COPD (chronic obstructive pulmonary disease) Heart disease Kidney disease Brother Heart disease Hypertension Diabetes Pancreatic cancer Mother A-fib Heart disease Surgical History History of total left hip replacement History of surgical procedure on eye proper using laser S/P foot surgery, left Tubal ligation status H/O section Hx of cholecystectomy H/O foot surgery Social History adopted: No household members: spouse, family and other details: has step son and custody of 3 grandchildren housing: house number of children: 3 current occupational status: employed current occupation: [employer] living pets and animals: Yes pets and animals: cat(s) and dog(s) history of recent travel: Yes () out of state: Yes out of country: No Smoking Status: Never smoker Electronic Cigarette Use: not used second hand exposure: No alcohol intake: never substance use type: does not use well-balanced diet: about half the time caffeine: Yes what type of physical activity do you participate in: none jered/anabaptist: Jain seatbelt use: sometimes do you feel safe at home: Yes additional social history: - Dionisio ROS Review of Systems ROS Unobtainable: Denies due to encephalopathy, due to endotracheal tube, due tomental condition, due to mental status or other Constitutional Constitutional: Denies anorexia, change in weight, chills, fatigue, fever(s), malaise, night sweats, weakness or other Eyes Eyes: Denies blurry vision, change in eye color, change in vision, discharge from eye(s), double vision, erythema, eye pain, loss of vision or other ENT HEENT: Denies abnormal hearing, dysphagia, ear pain, epistaxis, headache(s), hearing loss, nasal congestion, nasal discharge, post nasal drip, sinus pressure, sore throat or other Cardiovascular Cardiovascular: Denies chest pain, claudication, dyspnea on exertion, edema, lightheadedness, orthopnea, palpitations, paroxysmal nocturnal dyspnea, rapid heart rate, syncope or other Respiratory/Chest Respiratory/Chest: Denies cough, dyspnea, excessive phlegm production, hemoptysis, productive cough, shortness of breath at rest, shortness of breath with exertion, wheezing or other Gastrointestinal Gastrointestinal: Reports diarrhea, dyspepsia, nausea and vomiting Genitourinary Genitourinary: Denies burning urination, difficulty urinating, dysuria, hematuria, nocturia, urinary frequency, urinary hesitancy, urinary incontinence,urinary urgency or other Musculoskeletal Musculoskeletal: Denies arthralgias, back pain, joint pain, joint stiffness, joint swelling, myalgias, neck pain or other Neurologic Neurologic: Denies abnormal gait, abnormal speech, confusion, disequilibrium, dizziness, focal weakness, headache(s), numbness, paresthesias, seizure-like activity, seizures, syncope, tingling, tremor(s) or other Psychiatric Psychiatric: Denies anxiety, depression, homicidal ideation, suicidal ideation or other Endocrine Endocrinology: Denies change in body appearance, cold intolerance, excessive sweating, heat intolerance, polydipsia, polyuria or other Hematologic/Lymphatic Hematologic/Lymphatic: Denies anemia, easy bleeding, easy bruising, lymphadenopathy or other Allergic/Immunologic Allergic/Immunologic: Denies rhinitis, hives, eczemia, asthma or other Vital Signs Vital Signs Vital Signs: 07/06/24 17:46 07/06/24 20:25 07/06/24 21:33 Temperature 97.2 F L Temperature Source Temporal Pulse Rate 111 H 93 Respiratory Rate 16 16 Respiratory Effort Normal Respiratory Pattern Normal Blood Pressure 146/92 H 92/67 Blood Pressure Mean 110 75 Pulse Ox 98 98 Oxygen Delivery Method Room Air Room Air 07/06/24 22:00 07/06/24 23:01 Temperature 97.9 F Temperature Source Pulse Rate 93 87 Respiratory Rate 16 24 H Respiratory Effort Respiratory Pattern Blood Pressure 145/98 H 125/95 H Blood Pressure Mean 113 105 Pulse Ox 97 100 Oxygen Delivery Method Room Air Weight Weight: 241 lb 6.499 oz Body Mass Index (BMI) 37.8 Physical Exam Const alert and oriented x3 HEENT normocephalic and head/scalp atraumatic Eyes PERRL and EOMs intact bilaterally Neck no lymphadenopathy and supple Resp normal respiratory effort and no retractions Cardio regular rate and regular rhythm GI normal to inspection, nondistended, normoactive bowel sounds, soft to palpation and non-tender Neuro oriented x3 and CN's II-XII intact bilaterally Psych affect normal Results Medical Records Data Attestation: I reviewed the patient's medical records Lab / Micro Data Attestation: I reviewed the patient's lab results. 07/06/24 20:05 07/06/24 20:05 Labs: Laboratory Results - last 24 hr 07/06/24 20:05: WBC 11.2 H, RBC 6.29 H, Hgb 17.9 H, Hct 52.2 H, MCV 83.0, MCH 28.5, MCHC 34.3, RDW Std Deviation 42.5, RDW Coeff of Zachary 14.2, Plt Count 325, MPV 11.1, Immature Gran % (Auto) 0.400, Neut % (Auto) 56.3, Lymph % (Auto) 32.3,Florence % (Auto) 9.9, Eos % (Auto) 0.7, Baso % (Auto) 0.4, Absolute Neuts (auto) 6.3, Absolute Lymphs (auto) 3.61, Nucleated RBC % 0, Sodium 132 L, Potassium 3.4, Chloride 100, Carbon Dioxide 15.5 L, Anion Gap 17 H, BUN 62 H, Creatinine 1.52 H, Estim Creat Clear Calc 49.55 L, Est GFR (MDRD) Non-Af 39 L, BUN/Creatinine Ratio 40.9 H, Glucose 186 H, Calcium 9.3, Total Bilirubin 0.66, AST 29, ALT 34, Alkaline Phosphatase 133 H, Total Protein 8.8 H, Albumin 4.5, Globulin 4.3 H, Albumin/Globulin Ratio 1.0, b-Hydroxybutyric mmol/L 0.3 07/06/24 20:46: Urine Color Yellow, Urine Clarity Clear, Urine pH 5.0, Ur Specific Simla 1.025, Urine Protein 30 H, Urine Glucose (UA) Normal, Urine Ketones Negative, Urine Occult Blood 10 H, UrineNitrite Negative, Urine Bilirubin 1 H, Urine Urobilinogen Normal, Ur Leukocyte Esterase Negative, Urine RBC 0 SEEN, Urine WBC 0-5 SEEN, Ur Squamous Epith Cells 0-5 SEEN, Urine Bacteria1+, Hyaline Casts 5-10 SEEN, Fine Granular Casts 0-5 SEEN, Urine Mucus 0 SEEN 07/06/24 20:49: POC Glucose 189 H 07/06/24 22:08: POC Glucose 156 H 07/06/24 23:04: POC Glucose 134 H ABG Data ABG results: ABG 07/06/24 20:38 Specimen Type CARLOTA Sample Site Not entered O2 % 21.0 VBG pH 7.28 L VBG pO2 34 VBG HCO3 16 L VBG Total CO2 17 L VBG O2 Sat (Calc) 58 VBG Base Excess -10 L POC Mix VBG pCO2 Pt Tmp 35.0 L O2 Delivery Device Not entered Imaging Radiology Impression Abdomen/Pelvis CT 07/06/24 20:28 IMPRESSION: 1. Fluid contents throughout the colon, in keeping with the reported history ofdiarrheal illness. No significant inflammatory changes of the bowel, nor evidence of obstruction. 2. Colonic diverticulosis. 3. Multivessel coronary calcifications. Reading Location: [id number] Assessment & Plan Assessment/Plan (1) Acute kidney injury: PLAN: Plan 63-year-old female with a history of type 2 diabetes, hyperthyroidism, hypertension presents to theED with concerns regarding metabolic acidosis as well as ERNIE. The likely reason for her ERNIE is related to her ongoing diarrhea, diuretics for hypertension as well as decreased p.o. intake possibly secondary to the infection as well as Ozempic. Metabolic acidosis could be because of starvation but there is no associated ketosis, differentials also include euglycemic DKA with anion gap. She has notbeen taking any of her medications for the last 1 week and that may explain why her laboratory findings are not consistent with any 1 particular diagnosis. #ERNIE - Likely prerenal - Normal saline at the rate 100 mL/h - Repeat BMP in the morning - Admit for further observation #Metabolic acidosis - No urine ketones present - Euglycemic at this time - Hold Ozempic at the time of discharge - Will follow-up with endocrinology as an outpatient - Nutrition consult for diabetic education #Hyperthyroidism - Continue methimazole - TSH, T3-T4 levels # Type 2 - Continue insulin, - Hold Ozempic and Jardiance for now # HTN - continue to hold medications for now - can discharge on lisinopril if the creatinine improves with fluid therapy # Obesity - continue outpatient evaluation by endocrinology # GITA - Noted # Asthma - asymptomatic at present # DVT: low risk # Code: Full code 07/07/24 0034 Cosigner Signature (if applicable): CC: Dr. Alejandra Weiner MD; Dr. Pancho Tran MD~ Signed [facility]05-15-2025 Discharge summary [facility] Medical Records Department [address] [place] [id number] Emergency Department Summary 07/06/24 MR#: [id number] Acct: [id number] Name: LIGIA RIVAS Rep #:[id number] : 1960 63 From: Mahendra Devine MD PCP: Dr. Pancho Tran MD Status:R EG ER Location: ED ADDENDUM by Dr. Mahendra Devine MD on 07/06/24 at 2303 EKG was obtained and interpreted by myself independently as sinus tachycardia at103 b[address] changes. No STEMI. 07/06/24 2303 Cosigner Signature (if applicable): cc: Dr. Pancho Tran MD ~* Signed HPI History of Present Illness Chief Complaint: Abn Labs Narrative Narrative: 63-year-old female past medical history of diabetes, on Ozempic as well as Lantus presents at the direction of her primary care provider's office with concern for metabolic acidosis. She and her daughter relate history that over the last week she has had abdominal pain, nausea, vomiting, and diarrhea, she started to improve, however she still feels tired and fatigued with low energy. She saw her auto damage adjuster today, and had laboratory work drawn. She states that they are trying to wean her off Ozempic and insulin. She states that her blood sugars have been controlled recently. She does havetype 2 diabetes, but was told that there is concerned that she has metabolic acidosis. This was based off the laboratory work that was drawn today. [facility] Medical History Anxiety and depression Health care maintenance Wears contact lenses Depression Thyroid disease Insulin dependent diabetes mellitus Ambulates with cane Arthritis PONV (postoperative nausea and vomiting) High cholesterol Dietary restriction Non-smoker CPAP (continuous positive airway pressure) dependence Sleep apnea History of stress test Right rotator cuff tear Osteoarthritis of left hip Left hip pain Impingement of right shoulder Right shoulder pain Diabetic neuropathy Mild depression Hyperlipidemia GERD (gastroesophageal reflux disease) Muscle cramps Bilateral lower extremity edema Endometrial thickening on ultrasound Patellar fracture HTN (hypertension) Type 2 diabetes mellitus GITA (obstructive sleep apnea) Home Medications ?Medication ?Instructions ?Recorded ?Last Taken ?Type albuterol sulfate 90 mcg/actuation 2 puff inhalation Q 6H PRN 05/20/21 07/03/24 History aerosol inhaler (Ventolin HFA) shortness of breath or wheezing blood-glucose transmitter (Dexcom #1 ea 01/04/23 Unkno wn History G6 Transmitter device) trazodone 150 mg tablet 75 mg PO QHS 01/04/23 History glipizide 10 mg tablet, extended 10 mg PO BID 08/05/23 07/03/24 History release 24 hr ropinirole 1 mg tablet 1 mg PO QHS 08/05/23 5 History losartan 100 1 tab PO DAILY 10/07/2306/22 History mg-hydrochlorothiazide 12.5 mg tablet insulin lispro 100 unit/mL 5 unit (0.05 mL) subcut TID #15 mL 12/24/23 Unknown R x subcutaneous pen (Humalog KwikPen (U-100) Insulin) semaglutide 2 mg/dose (8 mg/3 mL) 2 mg (0.75 mL) subcu t MILLS #9 mL 12/24/23 Unknown Rx subcutaneous pen injector (Ozempic) empagliflozin 25 mg tablet 25 mg PO QDAY #30 tabs 12/2307/06/24 Rx (Jardiance) Held on 07/06/24. Instructions: MD Ordered methimazole 10 mg tablet 20 mg (2 x 10 mg) PO DAILY # 60 tabs 03/14/24 07/03/24 Rx blood sugar diagnostic (OneTouch #100 ea 04/13/24 Unkn own Rx Ultra Test strips) cholecalciferol (vitamin D3) 25 25 mcg PO QDAY 5 07/03/24 History mcg (1,000 unit) capsule duloxetine 60 mg capsule,delayed 60 mg PO DAILY #90 ca ps 04/13/24 07/03/24 Rx release potassium chloride 20 mEq 20 meq PO QDAY #90 tabs 03/2607/03/24 Rx tablet,extended release(part/cryst) insulin glargine 100 unit/mL (3 14 unit subcut DAILY 0 04/20/24 Unknown History mL) subcutaneous pen (Lantus Solostar U-100 Insulin) calcium carbonate PO 07/06/24 Unknown History mecobalamin (vitamin B12) 500 mcg 500 mcg PO DAILY 07/03/24 History chewable tablet Allergy/AdvReac Type Severity Reaction Status Date / Time No Known Allergies Allergy Verified 07/06/24 17:47 Family History Father Diabetes Hypertension COPD (chronic obstructive pulmonary disease) Heart disease Kidney disease Brother Heart disease Hypertension Diabetes Pancreatic cancer Mother A-fib Heart disease Surgical History History of total left hip replacement History of surgical procedure on eye proper using laser S/P foot surgery, left Tubal ligation status H/O section Hx of cholecystectomy H/O foot surgery Social History adopted: No household members: spouse, family and other details: has step son and custody of 3 grandchildren housing: house number of children: 3 current occupational status: employed current occupation: [employer] living pets and animals: Yes pets and animals: cat(s) and dog(s) history of recent travel: Yes () out of state: Yes out of country: No Smoking Status: Never smoker Electronic Cigarette Use: not used second hand exposure: No alcohol intake: never substance use type: does not use well-balanced diet: about half the time caffeine: Yes what type of physical activity do you participate in: none jered/anabaptist: Jain seatbelt use: sometimes do you feel safe at home: Yes additional social history: - Dionisio ROS ROS ED ROS Narrative Review for nausea, vomiting, diarrhea, and abdominal pain for the last week, improving. No fevers or chills. No shortness of breath or chest pain. No dysuria or hematuria. Endorses fatigue and generalized weakness. EXAM Physical Exam Narrative Exam Narrative: Afebrile. Vital signs noted. Nontoxic-appearing. Cardiovascular examination reveals mild tachycardia. Lungs clear to auscultation bilaterally. Abdomen is soft and nontender with positive bowel sounds. No guarding or rebound. Neurological examination is nonfocal and nonlateralizing. She is awake, alert, and interactive, and answering questions appropriately. Const Vital Signs: 07/06/24 17:46 07/06/24 20:25 07/06/24 21:33 Temperature 97.2 F L Temperature Source Temporal Pulse Rate 111 H 93 Respiratory Rate 16 16 Respiratory Effort Normal Respiratory Pattern Normal Blood Pressure 146/92 H 92/67 Blood Pressure Mean 110 75 Pulse Ox 98 98 Oxygen Delivery Method Room Air Room Air 07/06/24 22:00 Temperature Temperature Source Pulse Rate 93 Respiratory Rate 16 Respiratory Effort Respiratory Pattern Blood Pressure 145/98 H Blood Pressure Mean 113 Pulse Ox 97 Oxygen Delivery Method Room Air MDM MDM MDM Narrative Medical decision making narrative: Differential diagnosis includes but not limited to starvation ketosis versus dehydration versus other electrolyte abnormality versus diabetic ketoacidosis versus hyperosmolar nonketotic state. I reviewed her labs from today both in the computer and on the patient's telephone. She had a CO2 of 11 aswell as an elevated blood sugar with elevated anion gap of 19. I can see why there was concern for metabolic acidosis. She may have been mildly dehydrated with a sodium of 132. She will be bolused normal saline 2 L intravenously and DKA workup started. Repeat laboratories will be drawn as well including CBC and CMPas well as beta hydroxybutyrate and venous blood gas to check her pH. I reviewed her venous blood gas and she has a pH of 7.277 with CO2 of 35 and PO2of 33. HCO3 negative is 16.4 and low. I reviewed her laboratory work in WBC count 11.2 which think is nonspecific, hemoglobin 17.9 and hemoconcentrated withhematocrit 52.2 insistent with dehydration, platelet count normal at 325. Electrolyte panel shows hyponatremia with sodium of 132 but normal potassium of 3.4, CO2 is low at 15.5 with BUN of 62 and creatinine elevated at 1.52. When compared to prior labs this is an acute on kidney injury and slightly worsened from this morning. Glucose is elevated at 186 and anion gap elevated at 17 but her beta hydroxybutyrate is 0.3 and normal. Urinalysis is negative for ketones. There are 0-5 WBCs. I do not feel that she requires antibiotics for UTI. I reviewed the radiology report of the CT of the abdomen and pelvis and there is no acute process but she does have a diarrheal illness, no thickened colon wall,no obstruction. Given her acute kidney injury and dehydration along with mild acidosis, I will discuss patient withthe hospitalist for admission versus observation. Patient discussed with Dr. Weiner. Disposition is assigned to observation in stable condition. History & Record Review Discussion w/independent historian: Patient Additional record(s) reviewed:: Prior labs Lab Data Attestation: I reviewed the patient's lab results. Labs: Laboratory Results - last 24 hr 07/06/24 07/06/24 07/06/24 20:05 20:46 20:49 WBC 11.2 H RBC 6.29 H Hgb 17.9 H Hct 52.2 H MCV 83.0 MCH 28.5 MCHC 34.3 RDW Std Deviation 42.5 RDW Coeff of Zachary 14.2 Plt Count 325 MPV 11.1 Immature Gran % (Auto) 0.400 Neut % (Auto) 56.3 Lymph % (Auto) 32.3 Florence % (Auto) 9.9 Eos % (Auto) 0.7 Baso % (Auto) 0.4 Absolute Neuts (auto) 6.3 Absolute Lymphs (auto) 3.61 Nucleated RBC % 0 Sodium 132 L Potassium 3.4 Chloride 100 Carbon Dioxide 15.5 L Anion Gap 17 H BUN 62 H Creatinine 1.52 H Estim Creat Clear Calc 49.55 L Est GFR (MDRD) Non-Af 39 L BUN/Creatinine Ratio 40.9 H Glucose 186 H Calcium 9.3 Total Bilirubin 0.66 AST 29 ALT 34 Alkaline Phosphatase 133 H Total Protein 8.8 H Albumin 4.5 Globulin 4.3 H Albumin/Globulin Ratio 1.0 b-Hydroxybutyric mmol/L 0.3 Urine Color Yellow Urine Clarity Clear Urine pH 5.0 Ur Specific Simla 1.025 Urine Protein 30 H Urine Glucose (UA) Normal Urine Ketones Negative Urine Occult Blood 10 H Urine Nitrite Negative Urine Bilirubin 1 H Urine Urobilinogen Normal Ur Leukocyte Esterase Negative Urine RBC 0 SEEN Urine WBC 0-5 SEEN Ur Squamous Epith Cells 0-5 SEEN Urine Bacteria 1+ Hyaline Casts 5-10 SEEN Fine Granular Casts 0-5 SEEN Urine Mucus 0 SEEN POC Glucose 189 H 07/06/24 22:08 WBC RBC Hgb Hct MCV MCH MCHC RDW Std Deviation RDW Coeff of Zachary Plt Count MPV Immature Gran % (Auto) Neut % (Auto) Lymph % (Auto) Florence % (Auto) Eos % (Auto) Baso % (Auto) Absolute Neuts (auto) Absolute Lymphs (auto) Nucleated RBC % Sodium Potassium Chloride Carbon Dioxide Anion Gap BUN Creatinine Estim Creat Clear Calc Est GFR (MDRD) Non-Af BUN/Creatinine Ratio Glucose Calcium Total Bilirubin AST ALT Alkaline Phosphatase Total Protein Albumin Globulin Albumin/Globulin Ratio b-Hydroxybutyric mmol/L Urine Color Urine Clarity Urine pH Ur Specific Simla Urine Protein Urine Glucose (UA) Urine Ketones Urine Occult Blood Urine Nitrite Urine Bilirubin Urine Urobilinogen Ur Leukocyte Esterase Urine RBC Urine WBC Ur Squamous Epith Cells Urine Bacteria Hyaline Casts Fine Granular Casts Urine Mucus POC Glucose 156 H ABG Data ABG results: ABG 07/06/24 20:38 Specimen Type CARLOTA Sample Site Not entered O2 % 21.0 VBG pH 7.28 L VBG pO2 34 VBG HCO3 16 L VBG Total CO2 17 L VBG O2 Sat (Calc) 58 VBG Base Excess -10 L POC Mix VBG pCO2 Pt Tmp 35.0 L O2 Delivery Device Not entered Radiography Diagnostic Testing: Clinical Impression(s) from Imaging Studies Abdomen/Pelvis CT 07/06/24 20:28 IMPRESSION: 1. Fluid contents throughout the colon, in keeping with the reported history ofdiarrheal illness. No significant inflammatory changes of the bowel, nor evidence of obstruction. 2. Colonic diverticulosis. 3. Multivessel coronary calcifications. Reading Location: [id number] Management Discussion w/another healthcare provider: Hospitalist (Dr. Weiner) Discharge Plan Dx/Rx/DC Orders Clinical Impression: Diarrhea, Hyponatremia, Acute kidney injury Disposition Disposition: Acute Care Hospital [facility] What to do if you have Problems For any increased pain, shortness of breath, bleeding, nausea or vomiting, chestpain, or any unexpected problems, contact your Primary Care Provider. Call [facility] ([phone]) or report tothe closest Emergency Room. Call 911 if necessary. 07/06/24 2303 Cosigner Signature (if applicable): CC: Dr. Pancho Tran MD ~ Signed [facility]05-15-2025 Radiology Diagnostic study note [facility] Imaging Services [address] [place], [place] [id number] Abdomen/Pelvis W IV Cont ONLY MR#: [id number] Acct: [id number] Name: LIGIA RIVAS Rep #: [id number] : 1960 F 63 From: Rozina Nava MD PCP: Dr. Pancho Tran MD Status: R EG ER Study:Abdomen/Pelvis W IV Cont ONLY Date of E xam: 07/06/24 Exam# [id number] Ordering Dr: Mahendra Devine MD PROCEDURE: ABDOMEN/PELVIS W IV CONT ONLY 07/06/2024 REASON FOR EXAM: DIARRHEA TECHNIQUE: Abdomen and pelvis CT with intravenous contrast. Coronal and Sagittal reconstruction series were provided. PATIENT PREPARATION: Per protocol ORAL CONTRAST TYPE: None. CONTRAST: 100 mL Isovue 300 intravenous contrast One or more dose reduction techniques were used (e.g., Automated exposure control, adjustment of the mA and/or kV according to patient size, use of iterative reconstruction technique. RADIATION DOSE SUMMARY: CTDlvol: 23.2 mGy DLP: 1305 mGycm COMPARISON: None FINDINGS: Lung bases: Areas of linear scarring or atelectasis at the lung bases. No pleural effusion. Multivessel coronary calcifications. Liver: Hypodensity along the gallbladder fossa may represent focal fat. Gallbladder: Surgically absent. Spleen: Unremarkable. Pancreas: Normal size without evidence of mass surrounding inflammation or ductal dilation. Adrenals: Unremarkable. Kidneys: No hydronephrosis or urinary stone. Bladder: Unremarkable. Reproductive Organs: Hypodensity measuring 1.1 cm in the right aspect of the uterus may represent aleiomyoma. Bowel: No obstruction or inflammation. Fluid contents throughout the colon. Normal appendix. Colonic diverticulosis. Small duodenal diverticulum near the pancreatic head. Lymph nodes: No significant lymphadenopathy. Vasculature: Mild aortic atherosclerosis. Bones: Degenerative changes of the spine. Left hip arthroplasty. Transitional lumbosacral anatomy. CT/Abdomen/Pelvis W IV Cont ONLY IMPRESSION: 1. Fluid contents throughout the colon, in keeping with the reported history ofdiarrheal illness. No significant inflammatory changes of the bowel, nor evidence of obstruction. 2. Colonic diverticulosis. 3. Multivessel coronary calcifications. Reading Location: [id number] CC: Dr. Mahendra Devine MD; Dr. Pancho Tran MD ~ Picker Tender: Signed [facility]04-03-2025 NotePap Smear Specimen AdequacyApril 2024 11:14amComment.Satisfactory for evaluation. Endocervical and/or squamous metaplasticcells (endocervical component)are present.[facility]ACED A#[id number] [facility]lower [facility] on above:Satisfactory for evaluation. Endocervical and/or squamous metaplasticcells (endocervical component)are present.05-06-2024 [facility] [address] [place] [address] HEALTH INFORMATION MANAGEMENT EMERGENCY DEPARTMENT : [id number] Signed Patient: LIGIA RIVAS Acct:[id number] MRUN: [id number] : 1960 Sex: F Loc: ED AD M Date: 05/06/24 Room/Bed: DISC Date: History of Present Illness - General Chief Complaint: Injury Stated Complaint: RIGHT HAND INJURY Symptom onset: 05/02/24 HPI: Patient presents to the ED with right thumb/hand pain. She stated that she hit a gate when shewas letting her dog out. Radial pulse is present movement and sensation intact. Time Seen by Provider: 05/06/24 12:08 Mode of Transport: Ambulatory - History of Present Illness Initial Comments: 63-year-old female presenting to the emergency department today with right thumbpain. Patient is a right-handed female who states about 5 days ago she was handling her largest size dog when the dog took off on her pulling her Pina. She said she thought she sprained her thumb. She has been using ice and Tylenol for the pain but it has been getting worse so she came in today for evaluation fracture. - Related Data Home Medications Medication Instructions Recorded Confirmed Naproxen [Naprosyn] 500 mg PO TID #20 tablet 05/06/24 ED PMH/Social HX/Family HX - Respiratory Hx Respiratory Disorders: No - Cardiovascular Hx Cardiac Disorders: Yes PMH--Cardiovascular: HTN - Neurological Hx Neurological Disorder: No - Endocrine PMH--Endocrine History: Diabetes Type 2 - Gastrointestinal Hx Gastrointestinal Disorders: No - Genitourinary Hx Genitourinary Disorders: No - Musculoskeletal Hx Musculoskeletal Disorders: Yes Past Surgical Hx-MS: Left Total Hip Replacement - Psychological Hx Psychosocial Problems: No - HEENT Hx Ear, Nose Throat Disorders: No - Other No Significant Past Medical History: Yes - Social History Able to Read: Yes Able to Write: Yes Smoking Status: Never Smoked Hx Chewing Tobacco Use: No Alcohol Use: Never Any recreational drug use reported?: No Feels Threatened In Home Environment: No Feels Threatened In a Relationship: No - Frederica/Gender ID What is your current Gender Identity? Choose all that Apply: Female General Exam Sepsis focused exam performed?: No - Other Other exam information: PHYSICAL EXAM GEN: Healthy appearing, well-developed, NAD. SKIN: Warm, well perfused. No skin rashes or abnormal lesions. MSK: No deformities or signs of scoliosis. There is pain on palpation over the right thenar eminence. Pain along the dorsum of the thumb. No deformity noted. NEURO: Ambulating with no limitations. Normal muscle strength and tone. No focal deficits. - Vital Signs Vital Signs 05/06/24 11:52 Temperature 97.9 F Pulse Rate [VS 85 Machine] Respiratory 16 Rate Blood Pressure 141/69 H [Left Arm] O2 Sat by Pulse 98 Oximetry(%) Upper Extremity Problem MDM - Lab Data Orders: Naproxen [Naprosyn] 500 mg PO TID #20 tablet 05/06/24 [Rx] Labs 05/06/24 12:11 RIGHT HAND MIN 3V [DIAG] Stat - Radiology Data IMPRESSIONS Hand X-Ray 05/06/24 12:11 IMPRESSION: 1. 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 2. No evidence of a fracture of the thumb. RECOMMENDATION: If clinical symptoms persist, I recommend CT or MRI of the right wrist for further evaluation. - Medical Decision Making MDM Patient seen and examined, the clinical presentation and history is concerning for: [ Thumb sprain] Differential diagnosis includes but is not limited to: [ fracture or dislocation ] ED Course: [ three-view x-ray right hand] Prior records reviewed: none Reassessment:12:46: I discussed with patient I see no dislocation or fracture onher x-ray. I am going to put her in a thumb spica splint for a week or so and have a follow up with Orthopedics. DATA: EKG: none Reviewed pertinent findings from resulted labs: [ none] Imaging: Interpretation by radiology and independently reviewed by me. [ x-ray reviewed by me shows no fracture. I see no dislocation as well. Please see the formal radiological report.] Presenting clinical condition necessitates admission or observation consideration: No Med Rx considered but ultimately not given: [ Toradol ] Dx tests considered but ultimately not ordered: [ none ] Social determinant that may affects healthcare: [ None ] Pt?s case/impression summarized and discussed with: [ patient at bedside] Patient at time of disposition was clinically well-appearing and HDS. The patient and/or family wasgiven the opportunity to ask questions prior to discharge, understood my verbal discussion of the plans for treatment, expected course, indications to return to ED, and the need for timely follow up as directed. Prescribed medications: [ Naprosyn] Condition: Stable Disposition: Discharge Disclaimer: Portions of this medical record was produced using a voice recognizable dictation system. While every effort has been taken to correct errors some errors may still exist throughout this documentation. ED Discharge Summary - Discharge Data Clinical Impression: Sprain of hand, thumb, right Condition: Good Disposition: 01 HOME / SELF CARE Referrals: DANNY NEVAREZ MD [Primary Care Provider] - CHRIS GARCIA PA-C [PHYSICIAN CENTRIFUGAL OPERATOR] - Home Medications: Ambulatory Orders Medication Instructions Recorded Naproxen [Naprosyn] 500 mg PO TID #20 tablet 05/06/24 Time Seen by Provider: 05/06/24 12:08 Electronically Generated By:ALLEN CARRENO MD Generated Date/Time: 05/06/24 1225 Electronically Signed By: 05/06/24 1249 Co Signed Electronically By: Co Signed Date/Time: CC: DANNY NEVAERZ MD [facility]03-15-2025 Radiology Diagnostic study note [facility] RAD[facility] [address] [address] DIAGNOSTIC RADIOLOGY REPORT: [id number], Signed. 2 Patient: LIGIA RIVAS : 1960, age 63 MR#: [id number] Acct: [id number] - EXAMINATION: THREE XRAY VIEWS OF THE RIGHT HAND 05/06/2024 12:23 pm COMPARISON: None. HISTORY: ORDERING SYSTEM PROVIDED HISTORY: thumb pain FINDINGS: Three views of the right hand demonstrate normal alignment with minimal osteoarthritic changes of the carpal bones in a widening scapholunate interval. There remainder of the soft tissues and osseous structures appear unremarkable. There is no evidence of a fracture thumb. DIAG/RIGHT HAND MIN 3V IMPRESSION: 1. 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 2. No evidence of a fracture of the thumb. RECOMMENDATION: If clinical symptoms persist, I recommend CT or MRI of the right wrist for further evaluation. Electronically Signed by: DAHIANA ORR DO Signed date/time: 05/06/24 2512 CC: DANNY NEVAREZ MD; ALLEN CARRENO MD [facility] Work Phone: 1(511) 294-143302-20-2025 Evaluation note* Diagnosis Onset Date Resolution Status Admit Date HTN (hypertension) chronic 2024 9:38am Hyperthyroidism chronic April 13, 2024 9:38am Obesity chronic April 13, 2024 9:38am Type 2 diabetes mellitus chronic April 13, 2024 9:38am Vitamin D deficiency chronic ua2024 9:38am Health care maintenance acute F ebruary 2024 3:20pm Anxiety and depression chronic Fe bruary 2024 3:20pm HTN (hypertension) chronic ua 2024 3:20pm Hyperlipidemia chronic March 262024 3:20pm GITA (obstructive sleep apnea) chroni c April 20, 2024 3:20pm Type 2 diabetes mellitus chronic April 20, 2024 3:20pm Encounter for routine gynecological examination noneactive May 24, 2024 12:00pm [facility] Work Phone: 1(359) 147-724802-20-2025 Evaluation note* Diagnosis Onset Date Resolution Status Admit Date HTN (hypertension) chronic 2024 9:38am Hyperthyroidism chronic April 13, 2024 9:38am Type 2 diabetes mellitus chronic April 13, 2024 9:38am Vitamin D deficiency chronic 2024 9:38am Obesity resolved April 13, 2024 9:38am Health care maintenance acute F ebruary 2024 3:20pm Anxiety and depression chronic Fe bruary 2024 3:20pm HTN (hypertension) chronic 2024 3:20pm Hyperlipidemia chronic March 262024 3:20pm GITA (obstructive sleep apnea) chroni c April 20, 2024 3:20pm Type 2 diabetes mellitus chronic April 20, 2024 3:20pm Encounter for routine gynecological examination noneactive May 24, 2024 12:00pm Vaginal yeast infection acute M ay 2024 9:43am HTN (hypertension) chronic July 062024 9:43am Hyperlipidemia chronic July 06, 2024 9:43am Hyperthyroidism chronic July 06, 2024 9:43am Obesity (BMI 30-39.9) chronic July 06, 2024 9:43am Type 2 diabetes mellitus chronic July 06, 2024 9:43am Vitamin D deficiency chronic July 06, 2024 9:43am Diarrhea acute July 06, 2024 10:33am [facility] Work Phone: 1(635) 107-165902-20-2025 Evaluation note* Diagnosis Onset Date Resolution Status Admit Date HTN (hypertension) chronic 2024 9:38am Hyperthyroidism chronic April 13, 2024 9:38am Type 2 diabetes mellitus chronic April 13, 2024 9:38am Vitamin D deficiency chronic 2024 9:38am Obesity resolved April 13, 2024 9:38am Health care maintenance acute F ebruary 2024 3:20pm Anxiety and depression chronic Fe bruary 2024 3:20pm HTN (hypertension) chronic 2024 3:20pm Hyperlipidemia chronic March 262024 3:20pm GITA (obstructive sleep apnea) chroni c April 20, 2024 3:20pm Type 2 diabetes mellitus chronic April 20, 2024 3:20pm Encounter for routine gynecological examination noneactive May 24, 2024 12:00pm Vaginal yeast infection acute M ay 2024 9:43am HTN (hypertension) chronic July 062024 9:43am Hyperlipidemia chronic July 06, 2024 9:43am Hyperthyroidism chronic July 06, 2024 9:43am Obesity (BMI 30-39.9) chronic July 06, 2024 9:43am Type 2 diabetes mellitus chronic July 06, 2024 9:43am Vitamin D deficiency chronic July 06, 2024 9:43am Diarrhea acute July 06, 2024 10:33am Acute kidney injury acute June 222024 11:59pm Diarrhea acute July 06, 2024 11:59pm Hyponatremia acute July 06 11:59pm [facility] Work Phone: 1(759) 346-328902-20-2025 Evaluation note* Diagnosis Onset Date Resolution Status Admit Date HTN (hypertension) chronic 2024 9:38am Hyperthyroidism chronic April 13, 2024 9:38am Type 2 diabetes mellitus chronic April 13, 2024 9:38am Vitamin D deficiency chronic 2024 9:38am Obesity resolved April 13, 2024 9:38am Health care maintenance acute F ebruary 2024 3:20pm Anxiety and depression chronic Fe bruary 2024 3:20pm HTN (hypertension) chronic 2024 3:20pm Hyperlipidemia chronic March 262024 3:20pm GITA (obstructive sleep apnea) chroni c April 20, 2024 3:20pm Type 2 diabetes mellitus chronic April 20, 2024 3:20pm Encounter for routine gynecological examination noneactive May 24, 2024 12:00pm Vaginal yeast infection acute M ay 2024 9:43am HTN (hypertension) chronic July 062024 9:43am Hyperlipidemia chronic July 06, 2024 9:43am Hyperthyroidism chronic July 06, 2024 9:43am Obesity (BMI 30-39.9) chronic July 06, 2024 9:43am Type 2 diabetes mellitus chronic July 06, 2024 9:43am Vitamin D deficiency chronic July 06, 2024 9:43am Diarrhea acute July 06, 2024 10:33am Acute kidney injury acute June 222024 3:08pm Diarrhea acute July 07, 2024 3:08pm Hyponatremia acute July 07 3:08pm [facility] Work Phone: 1(745) 132-723811-18-2024 Evaluation note* Diagnosis Onset Date Resolution Status Admit Date HTN (hypertension) chronic Novemb er 2023 10:06am Hyperthyroidism chronic January 10, 2024 10:06am Obesity chronic January 10, 2024 10:06am Type 2 diabetes mellitus chronic January 10, 2024 10:06am Vitamin D deficiency chronic Nove mber 2023 10:06am HTN (hypertension) chronic 2024 9:38am Hyperthyroidism chronic April 13, 2024 9:38am Obesity chronic April 13, 2024 9:38am Type 2 diabetes mellitus chronic April 13, 2024 9:38am Vitamin D deficiency chronic ua2024 9:38am Health care maintenance acute F ebruary 2024 3:20pm Anxiety and depression chronic Fe bruary 2024 3:20pm HTN (hypertension) chronic Februa 2024 3:20pm Hyperlipidemia chronic March 262024 3:20pm GITA (obstructive sleep apnea) chroni c April 20, 2024 3:20pm Type 2 diabetes mellitus chronic April 20, 2024 3:20pm [facility] Work Phone: 1(714) 836-460004-24-2024 History of Present illness Narrative* Tiffany Beaver MD - 06/16/2023 4:30 PM EDT CHIEF COMPLAINT Chief Complaint Patient presents with Left Hip - Pain 62 y.o F c/o left hip pain. Noticed pain a few years ago. Constant sharp anterior pain and gets spasms in the quad. Mechanical symptoms. Lifting leg, stairs and walking agg pain. Been going to PT for5-6 weeks. No prior Hx of hip injuries. HISTORY OF PRESENT ILLNESS Ligia is a pleasant 62 y.o. female who presents today for evaluation of left hip. She is complaining of pain. The symptoms have been present for 2-3 year(s). The problem was a(n) gradual onset. The patient did not have a specific injury. There is numbness/tingling in the lower extremities -- some diabetic neuropathy. The pain is constant, moderate, severe, left hip anterior lateral deep. The patient describes the pain as aching, sharp / stabbing, and throbbing. The patient has had physical therapy. The patient has had injections in the hip. The patient has not had prior hip surgery. The following worsen the problem: flexion / rotation / walking / stairs / getting on socks / shoes. The following improve the problem: rest / cane. 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 PHYSICAL EXAMINATION: Well developed, well nourished patient in no acute distress. Alert and oriented times three, affect appropriate. Gait: Limp yes Hip ROM: Right Hip ROM: IR = 20 ER = 45 Extension = 0 Flexion = 100 GIANCARLO = 15 cm Adduction = 25 Abduction = 45 Left Hip ROM: IR = -5 ER = 20 Extension = -10 Flexion = 70 GIANCARLO = 25 cm Adduction = 15 Abduction = 20 Right Hip PAIN: Flexion no Flexion/IR no [place] no Psoas no Dial no Posterior Impingement no Trochanter no Piriformis no Hernia pain no Adductor no CMS Intact yes Left Hip PAIN: Flexion yes Flexion/IR yes [place] yes Psoas no Dial no Posterior Impingement no Trochanter no Piriformis pain no Hernia pain no Adductor no CMS intact yes Imaging independently reviewed and interpreted by myself: X-rays: ap pelvis, ap / lat / left hip, [facility] 4-24-24 Joint Space intact no [place] Grade: 4 IMPRESSION: LEFT hip pain, advanced hip OA PLAN: We reviewed with Ligia today, her diagnosis. The diagnosis and treatment options were discussed with her in detail today. The decision was made to go forward with discussion of tx options. Ref for joints provided to consider LTHA. She will work on her DM control as well. We will see patient back prn. If there are any questions prior to this, the patient was instructed to contact the office. Tiffany Beaver MD Orthopaedic Surgery Hip Preservation documented in this encounterOS[facility]Discharge summary Author ALLEN DYLAN [facility] Note Date/Time May 06, 2024 12: 49pm [facility] [address] [place] [address] HEALTH INFORMATION MANAGEMENT EMERGENCY DEPARTMENT : [id number] Signed Patient: LIGIA RIVAS Acct:[id number] MRUN: [id number] : 1960 Sex: F Loc: ED AD M Date: 05/06/24 Room/Bed: DISC Date: History of Present Illness - General Chief Complaint: Injury Stated Complaint: RIGHT HAND INJURY Symptom onset: 05/02/24 HPI: Patient presents to the ED with right thumb/hand pain. She stated that she hit a gate when she was letting her dog out. Radial pulse is present movement and sensation intact. Time Seen by Provider: 05/06/24 12:08 Mode of Transport: Ambulatory - History of Present Illness Initial Comments: 63-year-old female presenting to the emergency department today with right thumbpain. Patient is a right-handed female who states about 5 days ago she was handling her largest size dog when the dog took off on her pulling her Pina. She said she thought she sprained her thumb. She has been using ice and Tylenol for the pain but it has been getting worse so she came in today for evaluation fracture. - Related Data Home Medications Medication Instructions Recorded Confirmed Naproxen [Naprosyn] 500 mg PO TID #20 tablet 05/06/24 ED PMH/Social HX/Family HX - Respiratory Hx Respiratory Disorders: No - Cardiovascular Hx Cardiac Disorders: Yes PMH--Cardiovascular: HTN - Neurological Hx Neurological Disorder: No - Endocrine PMH--Endocrine History: Diabetes Type 2 - Gastrointestinal Hx Gastrointestinal Disorders: No - Genitourinary Hx Genitourinary Disorders: No - Musculoskeletal Hx Musculoskeletal Disorders: Yes Past Surgical Hx-MS: Left Total Hip Replacement - Psychological Hx Psychosocial Problems: No - HEENT Hx Ear, Nose Throat Disorders: No - Other No Significant Past Medical History: Yes - Social History Able to Read: Yes Able to Write: Yes Smoking Status: Never Smoked Hx Chewing Tobacco Use: No Alcohol Use: Never Any recreational drug use reported?: No Feels Threatened In Home Environment: No Feels Threatened In a Relationship: No - Frederica/Gender ID What is your current Gender Identity? Choose all that Apply: Female General Exam Sepsis focused exam performed?: No - Other Other exam information: PHYSICAL EXAM GEN: Healthy appearing, well-developed, NAD. SKIN: Warm, well perfused. No skin rashes or abnormal lesions. MSK: No deformities or signs of scoliosis. There is pain on palpation over the right thenar eminence. Pain along the dorsum of the thumb. No deformity noted. NEURO: Ambulating with no limitations. Normal muscle strength and tone. No focal deficits. - Vital Signs Vital Signs 05/06/24 11:52 Temperature 97.9 F Pulse Rate [VS 85 Machine] Respiratory 16 Rate Blood Pressure 141/69 H [Left Arm] O2 Sat by Pulse 98 Oximetry(%) Upper Extremity Problem MDM - Lab Data Orders: Naproxen [Naprosyn] 500 mg PO TID #20 tablet 05/06/24 [Rx] Labs 05/06/24 12:11 RIGHT HAND MIN 3V [DIAG] Stat - Radiology Data IMPRESSIONS Hand X-Ray 05/06/24 12:11 IMPRESSION: 1. 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 2. No evidence of a fracture of the thumb. RECOMMENDATION: If clinical symptoms persist, I recommend CT or MRI of the right wrist for further evaluation. - Medical Decision Making MDM Patient seen and examined, the clinical presentation and history is concerning for: [ Thumb sprain] Differential diagnosis includes but is not limited to: [ fracture or dislocation ] ED Course: [ three-view x-ray right hand] Prior records reviewed: none Reassessment:12:46: I discussed with patient I see no dislocation or fracture onher x-ray. I am going to put her in a thumb spica splint for a week or so and have a follow up with Orthopedics. DATA: EKG: none Reviewed pertinent findings from resulted labs: [ none] Imaging: Interpretation by radiology and independently reviewed by me. [ x-ray reviewed by me shows no fracture. I see no dislocation as well. Please see the formal radiological report.] Presenting clinical condition necessitates admission or observation consideration: No Med Rx considered but ultimately not given: [ Toradol ] Dx tests considered but ultimately not ordered: [ none ] Social determinant that may affects healthcare: [ None ] Pt?s case/impression summarized and discussed with: [ patient at bedside] Patient at time of disposition was clinically well-appearing and HDS. The patient and/or family was given the opportunity to ask questions prior to discharge, understood my verbal discussion of the plans for treatment, expected course, indications to return to ED, and the need for timely follow up as directed. Prescribed medications: [ Naprosyn] Condition: Stable Disposition: Discharge Disclaimer: Portions of this medical record was produced using a voice recognizable dictation system. While every effort has been taken to correct errors some errors may still exist throughout this documentation. ED Discharge Summary - Discharge Data Clinical Impression: Sprain of hand, thumb, right Condition: Good Disposition: 01 HOME / SELF CARE Referrals: DANNY NEVAREZ MD [Primary Care Provider] - CHRIS GARCIA PA-C [PHYSICIAN CENTRIFUGAL OPERATOR] - Home Medications: Ambulatory Orders Medication Instructions Recorded Naproxen [Naprosyn] 500 mg PO TID #20 tablet 05/06/24 Time Seen by Provider: 05/06/24 12:08 Electronically Generated By:ALLEN CARRENO MD Generated Date/Time: 05/06/24 1225 Electronically Signed By: <Electronically signed by ALLEN CARRENO MD> 05/06/24 1249 Co Signed Electronically By: Co Signed Date/Time: CC: DANNY NEVAREZ MD [facility] Work Phone: Discharge summary Author Cate Sargent [facility] Note Date/Time July 08, 2024 10:13 am [facility] Medical Records Department [address] [place] [id number] Instructions for Home/Discharge Instructions 07/08/24 1010 MR#: [id number] Acct: [id number] Name: LIGIA RIVAS Rep #:[id number] : 1960 63 From: Cate Sargent MD PCP: Dr. Pancho Tran MD Status:A DM IN Discharge Instructions Diet Discharge Diet: Low fat / Low cholesterol and 1800 Calorie Control Diet DC O2, CPAP, BIPAP needs Home O2 Discharge instructions: No Dressing / Incision Discharge Activity: Return to Normal Activity Weight Bearing Status: Weight bearing as tolerated Dressing / Incision Call your doctor if you observe: Fever of 101 or Higher, Shortness of breath, Dizziness, Swelling in the ankles, Chest pain, Increased palpitations (irregularheartbeat) and Calf discomfort Follow Up Care Test Results: Test results from this visit will be discussed in further detail at your follow- up appointment, if applicable. Discharge Plan Admission Admit Date/Time: 07/07/24 15:08 Primary Reason for Your Visit: chino KLEIN Attending Provider: Cate Sargent Primary Care Provider: Pancho Tran Consulting Providers: Alejandra Weiner Instructions Patient Instructions: ED Diarrhea, Unknown Cause, ED Renal Insufficiency Discharge Orders/Prescriptions Prescriptions: Continued albuterol sulfate [Ventolin HFA] 90 mcg/actuation HFA aerosol inhaler 2 puff inhalation Q6H PRN (Reason: shortness of breath or wheezing) trazodone 150 mg tablet 75 mg PO QHS (DME) Dexcom G6 Transmitter Device See Rx Instructions .ROUTE .MEDSUPPLY Qty: 1 Patient Comments: USE TRANSMITTER NEEDED Rx Instructions: As directed glipizide 10 mg tablet extended release 24hr 10 mg PO BID ropinirole 1 mg tablet 1 mg PO QHS losartan-hydrochlorothiazide 100-12.5 mg tablet 1 tab PO DAILY cholecalciferol (vitamin D3) 25 mcg (1,000 unit) capsule 25 mcg PO QDAY (DME) OneTouch Ultra Test Strip See Rx Instructions .Route Qty: 100 5RF Rx Instructions: BID duloxetine 60 mg capsule,delayed release(DR/EC) 60 mg PO DAILY Qty: 90 0RF potassium chloride 20 mEq tablet,ER particles/crystals 20 meq PO QDAY Qty: 90 0RF insulin glargine [Lantus Solostar U-100 Insulin] 100 unit/mL (3 mL) insulin pen 14 unit subcut DAILY mecobalamin (vitamin B12) 500 mcg tablet,chewable 500 mcg PO DAILY calcium carbonate [Antacid (calcium carbonate)] PO insulin lispro [Humalog KwikPen Insulin] 100 unit/mL insulin pen 5 unit subcut TID Qty: 15 0RF Ozempic 2 mg/dose (8 mg/3 mL) pen injector 2 mg subcut MILLS Qty: 9 1RF methimazole 10 mg tablet 20 mg PO DAILY Qty: 60 3RF Discontinued Jardiance 25 mg tablet 25 mg PO QDAY Qty: 30 5RF Referrals / Follow Up: Pancho Tran MD [Primary Care Provider] - Within 1 Week Disposition Disposition (needs filled in before D/C Order can be placed): Home, Self Care 07/08/24 1013<Electronically signed by Cate Sargent MD>Cate Sargent MD CC: Dr. Alejandra Weiner MD; Dr. Pancho Tran MD ~ Signed [facility] Work Phone: Evaluation note* Diagnosis Onset Date Resolution Status Endometrial thickening on ultrasound acute HTN (hypertension) chronic Endometrial thickening on ultrasound acute [facility] Work Phone: Evaluation note* Diagnosis Onset Date Resolution Status Impingement of right shoulder acute Right shoulder pain acute Left hip pain acute Osteoarthritis of left hip a cute Impingement of right shoulder acute Osteoarthritis of left hip a cute Lumbar degenerative disc disease acute Osteoarthritis of left hip a cute Sacroiliac joint disease acu te Morbid obesity due to excess calories chronic Hip flexor tendinitis noneac tive Lumbar degenerative disc disease acute Osteoarthritis of left hip [facility] Work Phone: Evaluation note* Diagnosis Left hip pain- Primary Pain in joint, pelvic region and thigh Left hip pain Pain in joint, pelvic region and thigh documented in this [facility] Diagnosis Left hip pain Pain in joint, pelvic region and thigh documented in this encounter [facility] assessment information available [facility] Work Phone: Evaluation note* Diagnosis Onset Date Resolution Status Admit Date Diabetic neuropathy acute Septe mb2024 9:41am Anxiety and depression chronic Se ptember 2024 9:41am HTN (hypertension) chronic 2024 9:41am Type 2 diabetes mellitus chronic November 16, 2024 9:41am [facility] Work Phone: Progress note Author Sandra Meredith [facility] Note Date/Time November 16, 2024 10:41am [facility] [address] [place] [address] [place] [address] OFFICE VISIT Date of Service: 11/16/24 MR#: [id number] Acct: [id number] Name: LIGIA RIVAS Rep #: [id number] : 1960 Provider: ARCADIO Meredith Age/Sex: 63/F Location: [facility] Status: Signed Intake Vital Signs 07/07/24 14:19 11/16/24 09:59 Height 5 ft 7 in 5 ft 7 in Weight: 260 lb BMI 40.7 BP 138/82 H Blood Pressure Location Rt brachial Position Sitting Respiration 16 Pulse 94 Pulse Source Monitor Temp 97.3 F L Temp Source Temporal Pulse Oximetry (%) 96 Oxygen Delivery Method room air Intake Visit Reasons: medication refills 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: No Accompanied by: Self Is patient in pain?: No Allergies No Known Allergies Allergy (Verified 11/16/24 09:57) Medications ?Medication ?Instructions ?Recorded ?Confirmed ?Type albuterol sulfate 90 mcg/actuation 2 puff inhalation Q 6H PRN 05/20/21 11/16/24 History aerosol inhaler (Ventolin HFA) shortness of breath or wheezing blood-glucose transmitter (Dexcom #1 ea 01/04/2311/16 History G6 Transmitter device) insulin lispro 100 unit/mL 5 unit (0.05 mL) subcut TID #15 mL 12/24/23 11/16/24 Rx subcutaneous pen (Humalog KwikPen (U-100) Insulin) blood sugar diagnostic (OneTouch #100 ea 04/13/2410/24 Rx Ultra Test strips) cholecalciferol (vitamin D3) 25 25 mcg PO QDAY 5 11/16/24 History mcg (1,000 unit) capsule insulin glargine 100 unit/mL (3 14 unit subcut DAILY 0 04/20/24 11/16/24 History mL) subcutaneous pen (Lantus Solostar U-100 Insulin) calcium carbonate PO 07/06/24 11/16/24 History mecobalamin (vitamin B12) 500 mcg 500 mcg PO DAILY 11/16/24 History chewable tablet methimazole 10 mg tablet 20 mg (2 x 10 mg) PO DAILY # 60 tabs 08/24/24 11/16/24 Rx blood-glucose sensor (FreeStyle #6 ea 08/29/24 5 Rx Caroline 3 Plus Sensor device) dulaglutide 4.5 mg/0.5 mL 4.5 mg (0.5 mL) subcut QWEEK #6 mL 08/30/24 11/16/24 Rx subcutaneous pen injector (Trulicity) glipizide 10 mg tablet, extended 10 mg PO BID #180 tab s 10/24/24 11/16/24 Rx release 24 hr duloxetine 60 mg capsule,delayed 60 mg PO DAILY #90 ca ps 11/15/24 11/16/24 Rx release gabapentin 100 mg capsule 100 mg PO QHS PRN neuropathy #30 11/16/24 11/16/24 Rx caps losartan 100 1 tab PO DAILY #90 tabs 10/2411/16/24 Rx mg-hydrochlorothiazide 12.5 mg tablet potassium chloride 20 mEq 20 meq PO QDAY #90 tabs 10/2411/16/24 Rx tablet,extended release(part/cryst) ropinirole 1 mg tablet 1 mg PO QHS #90 tabs 5 11/16/24 Rx trazodone 150 mg tablet 75 mg (1/2 x 150 mg) PO QHS #90 11/16/24 11/16/24 Rx tabs Nurse's Note: medication refills [facility] Anxiety and depression Health care maintenance Wears contact lenses Depression Thyroid disease Insulin dependent diabetes mellitus Ambulates with cane Arthritis PONV (postoperative nausea and vomiting) High cholesterol Dietary restriction Non-smoker CPAP (continuous positive airway pressure) dependence Sleep apnea History of stress test Right rotator cuff tear Osteoarthritis of left hip Left hip pain Impingement of right shoulder Right shoulder pain Diabetic neuropathy Mild depression Hyperlipidemia GERD (gastroesophageal reflux disease) Muscle cramps Bilateral lower extremity edema Endometrial thickening on ultrasound Patellar fracture HTN (hypertension) Type 2 diabetes mellitus GITA (obstructive sleep apnea) Surgical History History of total left hip replacement History of surgical procedure on eye proper using laser S/P foot surgery, left Tubal ligation status H/O section Hx of cholecystectomy H/O foot surgery Family History Father Diabetes Hypertension COPD (chronic obstructive pulmonary disease) Heart disease Kidney disease Brother Heart disease Hypertension Diabetes Pancreatic cancer Mother A-fib Heart disease Social History adopted: No household members: spouse, family and other details: has step son and custody of 3 grandchildren housing: house number of children: 3 current occupational status: employed 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 pets and animals: Yes pets and animals: cat(s) and dog(s) history of recent travel: Yes () out of state: Yes out of country: No Smoking Status: Never smoker Electronic Cigarette Use: not used second hand exposure: No alcohol intake: never substance use type: does not use well-balanced diet: about half the time caffeine: Yes what type of physical activity do you participate in: none jered/anabaptist: Jain seatbelt use: sometimes do you feel safe at home: Yes additional social history: - Dionisio [facility] 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 Details: LIGIA RIVAS, is a 63 F who presents to the office today for follow-up on chronic conditions, as well as concern for increased neuropathy discomfort tingling/numbness at bedtime. History of hypertension, currently on losartan hydrochlorothiazide. She states that she takes her medication every morning but does not routinely check her numbers at home. Also has not been as active lately. No chest pain, palpitation or shortness of breath. History of anxiety and depression currently on duloxetine and trazodone. Feels well. She is concerned about her daughter and her son's health however mental health otherwise well-controlled on current medications. History of diabetes mellitus type 2, follows up with endocrinology overall, has had elevated readings after hospital stay in June. Patient has not recently followed up with endocrinology. ROS Const Constitutional: No body ache, excessive sweating, fatigue, fever(s), frequent falls, headache(s), snoring, weakness, weight change, sleep problems or change in appetite Eyes Eyes: No blurry vision, change in vision, eye pain or Light sensitivity ENT ENT: No abnormal hearing, ear or mastoid pain, tinnitus, nasal congestion, headache(s), neck pain or sore throat Resp Respiratory: No cough, shortness of breath, snoring or wheezing Cardio Cardiology: No chest pain at rest, chest pain with exertion, excessive sweating,shortness of breath, dyspnea on exertion, lightheadedness, orthopnea or palpitations Gastro GI: No abdominal pain, change in bowel habits, constipation, cramping, diarrhea,nausea/dyspepsia or vomiting Genitourinary-Female: No burning urination, painful urination, urinary incontinence, urinary frequency, blood in urine, abnormal periods or pelvic pain Musc Musculoskeletal: No abnormal gait, joint pain, back pain, limited range of motion, neck pain, numbness, stiffness, tingling or Arthritis Skin Skin: No dry skin, redness, lesions, itchy eyes, rash or wounds Neuro Neurology: No abnormal gait, abnormal hearing, abnormal speech, dizziness, weakness, frequent falls, headache(s), memory loss, numbness or tingling Psych Psychiatric: No anxiety, No change in appetite, No depression, No memory loss and No Thoughts of harming yourself/Others Endo Endocrine: No cold intolerance, excessive sweating, fatigue, flushing, heat intolerance, increased thirst/drinking, increased hunger or weight change Aller/Imm Allergy/Immunologic: No itchy eyes, seasonal allergy symptoms, hives or wheezing Juancarlos/Lymp Hematologic/Lymphatic: No easy bleeding, easy bruising or enlarged lymph nodes Exam Const General: cooperative, no acute distress, well groomed and well hydrated Nutritional Appearance: well nourished Orientation: alert and oriented x3 HENMT Head: normal to inspection Ears: hearing grossly normal bilaterally Nose: external nose normal and nares normal Face and sinus: normal facial exam Mouth: oral mucosae normal, lip normal and moist mucous membranes Eyes General: appearance normal, both eyes and all related structures Pupils: PERRL Neck Neck: normal visual inspection, no lymphadenopathy and trachea midline Thyroid: thyroid normal Carotids: normal carotid upstroke and no bruits Lymphatic: no lymphadenopathy noted Chest Chest palpation & inspection: normal inspection of the chest Resp Effort & Inspection: normal respiratory effort, able to speak in complete sentences and symmetric chest movement Auscultation: Bilateral: Clear to Auscultation Cardio Palpation: normal PMI Rate: regular rate Rhythm: regular rhythm Heart Sounds: S1 normal and S2 normal Pulses: radial pulses present GI Inspection: normal to inspection Auscultation: normal bowel sounds Palpation: soft and nontender Musc Musculoskeletal: No joint tenderness, joint redness or muscle weakness Skin General: no rashes or lesions noted Lesions: no lesions Rashes: no rashes Trauma: no lacerations or abrasions Wounds: no wounds Neuro General: patient alert, patient oriented x3 and deep tendon reflexes 2+ bilaterally Speech: speech normal Motor: muscle tone normal throughout Extrem General: normal to inspection and capillary refill normal Psych Appearance: grossly normal and well kempt Coding Level of Care Code Established Pt Off vis,est,level 3 Patient Type Established History Expanded Problem Focused Exam Expanded Problem Focused Medical Decision Making Moderate Complexity Diagnoses Anxiety and depression F41.9; F32.A Type 2 diabetes mellitus with hyperglycemia, with long-term current use of insulin E11.65; Z79.4 Diabetes mellitus halfway insulin use: with intermediate designer use Diabetes mellitus complication status: with hyperglycemia Hypertension, unspecified type I10 Hypertension type: unspecified Diabetic neuropathy E11.40 Time Spent (min) 30 Assessment and Plan Assessment and Plan (1) Anxiety and depression: Status: Chronic Plan: Well-controlled at this time we will continue current medication (2) Type 2 diabetes mellitus: Status: Chronic Qualifiers: Diabetes mellitus halfway insulin use: with halfway use Diabetes mellitus complication status: with hyperglycemia Qualified Code(s): E11.65 - Type 2 diabetes mellitus with hyperglycemia; Z79.4 - assisted (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 Plan: Patient to follow-up with endocrinology. States she will call them to make an appointment as her medications were changed and she does not hospital due to theeffects on her kidneys. (3) HTN (hypertension): Status: Chronic Qualifiers: Hypertension type: unspecified Qualified Code(s): I10 - Essential (primary) hypertension Plan: Blood pressure 138/82 in office today. Will continue current medications. (4) Diabetic neuropathy: Status: Acute Plan: Patient currently on duloxetine and ropinirole at bedtime states worsening of symptoms of neuropathy. Patient states she does believe she is taking gabapentin previously will try low-dose of 100 mg of gabapentin at bedtime to see if that helps with her symptoms of neuropathy. Medications: New trazodone 75 mg (1/2 x 150 mg) PO QHS 90 tabs 1RF ropinirole 1 mg PO QHS 90 tabs 1RF gabapentin 100 mg PO QHS PRN 30 caps 2RF neuropathy Refilled potassium chloride ER 20 mEq PO QDAY 90 tabs 0RF losartan-hydrochlorothiazide 100-12.5 mg 1 TAB PO DAILY 90 tabs 1RF Plan Details Follow Up: 3 Months 11/16/241652 <Electronically signed by Sandra ERVIN> Date _ Sandra ERVIN Cosigner Signature: Date (if applicable) CC: ~ [facility] Work Phone: Reason for referral (narrative)* Consultation (Routine) - New Request Specialty Diagnoses / Procedures Referred By David pruitt Referred To Contact Orthopaedics Diagnoses Left hip pain Tiffany Beaver MD [address] [place] [address] Referral ID Status Reason Start Date Expiration Date V isits Requested Visits Authorized [id number] New Request 06/16/2023 07/10/2024 1 1 * Diagnostic X-Ray (Routine) - New Request Specialty Diagnoses / Procedures Referred By David pruitt Referred To Contact Diagnoses Left hip pain Procedures XR HIP LEFT 2-3 VIEWS Tiffany Beaver MD [address] [place] [address] Referral ID Status Reason Start Date Expiration Date V isits Requested Visits Authorized [id number] New Request 06/15/2023 07/09/2024 1 1 [facility]ative)No reason for referral information [facility] Work Phone: Summary Purpose Family History Relationship Condition Age at Onset Recorded Date/T rosalba father Diabetes mellitus Unknown Hypertension Unknown Chronic obstructive pulmonary disease Unk nown Cardiac disease Unknown Kidney disorder Unknown brother Cardiac disease Unknown Diabetes mellitus Unknown Malignant neoplasm of pancreas Unknown mother Atrial fibrillation Unknown Advance Directives Advance Directive Response Recorded Date/ Time Living Will No October 05 11:15am Power of Primary Therapist No October 05 11:15am Advance Directive Response Recorded Date/ Time Do you have a Healthcare Power of Primary Therapist? No July 06, 2024 9:33pm Advance Directive Response Recorded Date/ Time Do you have a Healthcare Power of Primary Therapist? No July 07, 2024 12:42am Chief Complaint and Reason for Visit Chief Complaint EMB? EMB ENDOMETRIAL THICKENING polyp possible D&C Reason for Visit Endometrial thickeni ng on ultrasound HTN (hypertension) Endometrial thickening on ultrasound Chief Complaint RIGHT SHOULDER RM 4 LEFT HIP Room 4 RIGHT SHOULDER LEFT HIP LUMBAR SPINE RIGHT SHOULDER PAIN, R/O CUFF TEAR Reason for Visit Impingement of right shoulder Right shoulder pain Left hip pain Osteoarthritis of left hip Impingement of right shoulder Osteoarthritis of left hip Lumbar degenerative disc disease Osteoarthritis of left hip Sacroiliac joint disease Morbid obesity due to excess calories Hip flexor tendinitis Lumbar degenerative disc disease Osteoarthritis of left hip Chief Complaint Admit Date 3 M FU January 10, 2024 10:06am E ORDERS January 10, 2024 10:46am 3 M FU April 13, 2024 9:38am EST NEW PT - ENDO PT April 20, 2024 3:20pm Reason for Visit Admit Date HTN (hypertension) January 10, 2024 10:06am Hyperthyroidism January 10, 2024 10:06am Obesity January 10, 2024 10:06am Type 2 diabetes mellitus January 10, 2024 10:06am Vitamin D deficiency January 10, 2024 10:06am HTN (hypertension) April 13, 2024 9:38am Hyperthyroidism April 13, 2024 9:38am Obesity April 13, 2024 9:38am Type 2 diabetes mellitus April 13, 2024 9:38am Vitamin D deficiency April 13, 2024 9:38am Health care maintenance April 20, 2 025 3:20pm Anxiety and depression April 20 3:20pm HTN (hypertension) April 20, 2024 3:20pm Hyperlipidemia April 20, 2024 3:20pm GITA (obstructive sleep apnea) March 262024 3:20pm Type 2 diabetes mellitus April 20, 2024 3:20pm Chief Complaint Admit Date 3 M FU April 13, 2024 9:38am EST NEW PT - ENDO PT April 20, 2024 3:20pm Annual (MEDICAL CODER) May 24, 2024 12:0 0pm PAP May 25, 2024 8:59 am Reason for Visit Admit Date HTN (hypertension) April 13, 2024 9:38am Hyperthyroidism April 13, 2024 9:38am Obesity April 13, 2024 9:38am Type 2 diabetes mellitus April 13, 2024 9:38am Vitamin D deficiency April 13, 2024 9:38am Health care maintenance April 20, 2 025 3:20pm Anxiety and depression April 20 3:20pm HTN (hypertension) April 20, 2024 3:20pm Hyperlipidemia April 20, 2024 3:20pm GITA (obstructive sleep apnea) March 262024 3:20pm Type 2 diabetes mellitus April 20, 2024 3:20pm Encounter for routine gynecological exam ination May 24, 2024 12:00pm Chief Complaint Admit Date RIGHT HAND INJURY May 06, 2024 11: 50am Chief Complaint Admit Date 3 M FU April 13, 2024 9:38am EST NEW PT - ENDO PT April 20, 2024 3:20pm Annual (MEDICAL CODER) May 24, 2024 12:0 0pm PAP May 25, 2024 8:59 am SCREENING/POST CONNIE June 01, 2024 1:3 1pm Chief Complaint Admit Date 3 M FU April 13, 2024 9:38am EST NEW PT - ENDO PT April 20, 2024 3:20pm Annual (MEDICAL CODER) May 24, 2024 12:0 0pm PAP May 25, 2024 8:59 am SCREENING/POST CONNIE June 01, 2024 1:3 1pm 3 M FU July 06, 2024 9:43a m Chief Complaint Admit Date 3 M FU April 13, 2024 9:38am EST NEW PT - ENDO PT April 20, 2024 3:20pm Annual (MEDICAL CODER) May 24, 2024 12:0 0pm PAP May 25, 2024 8:59 am SCREENING/POST CONNIE June 01, 2024 1:3 1pm 3 M FU July 06, 2024 9:43a m ACUTE DIARRHEA AND VOMITING SINCE SATURDAY July 06, 2024 10:33am Reason for Visit Admit Date HTN (hypertension) April 13, 2024 9:38am Hyperthyroidism April 13, 2024 9:38am Type 2 diabetes mellitus April 13, 2024 9:38am Vitamin D deficiency April 13, 2024 9:38am Obesity April 13, 2024 9:38am Health care maintenance April 20, 2 025 3:20pm Anxiety and depression April 20 3:20pm HTN (hypertension) April 20, 2024 3:20pm Hyperlipidemia April 20, 2024 3:20pm GITA (obstructive sleep apnea) March 262024 3:20pm Type 2 diabetes mellitus April 20, 2024 3:20pm Encounter for routine gynecological exam ination May 24, 2024 12:00pm Vaginal yeast infection July 06, 2024 9 :43am HTN (hypertension) July 06, 2024 9:43a m Hyperlipidemia July 06, 2024 9:43a m Hyperthyroidism July 06, 2024 9:43a m Obesity (BMI 30-39.9) July 06, 2024 9:4 3am Type 2 diabetes mellitus July 06, 2024 9:43am Vitamin D deficiency July 06, 2024 9:43 am Diarrhea July 06, 2024 10:33 am Chief Complaint Admit Date 3 M FU April 13, 2024 9:38am EST NEW PT - ENDO PT April 20, 2024 3:20pm Annual (MEDICAL CODER) May 24, 2024 12:0 0pm PAP May 25, 2024 8:59 am SCREENING/POST CONNIE June 01, 2024 1:3 1pm 3 M FU July 06, 2024 9:43a m ACUTE DIARRHEA AND VOMITING SINCE SATURDAY July 06, 2024 10:33am METABOLIC ACIDOSIS July 06, 2024 11:59 pm Reason for Visit Admit Date HTN (hypertension) April 13, 2024 9:38am Hyperthyroidism April 13, 2024 9:38am Type 2 diabetes mellitus April 13, 2024 9:38am Vitamin D deficiency April 13, 2024 9:38am Obesity April 13, 2024 9:38am Health care maintenance April 20, 3:20pm Anxiety and depression April 20 3:20pm HTN (hypertension) April 20, 2024 3:20pm Hyperlipidemia April 20, 2024 3:20pm GITA (obstructive sleep apnea) March 262024 3:20pm Type 2 diabetes mellitus April 20, 2024 3:20pm Encounter for routine gynecological exam ination May 24, 2024 12:00pm Vaginal yeast infection July 06, 2024 9 :43am HTN (hypertension) July 06, 2024 9:43a m Hyperlipidemia July 06, 2024 9:43a m Hyperthyroidism July 06, 2024 9:43a m Obesity (BMI 30-39.9) July 06, 2024 9:4 3am Type 2 diabetes mellitus July 06, 2024 9:43am Vitamin D deficiency July 06, 2024 9:43 am Diarrhea July 06, 2024 10:33 am Acute kidney injury July 06, 2024 11:59 pm Diarrhea July 06, 2024 11:59 pm Hyponatremia July 06, 2024 11:59 pm Chief Complaint Admit Date 3 M FU April 13, 2024 9:38am EST NEW PT - ENDO PT April 20, 2024 3:20pm Annual (MEDICAL CODER) May 24, 2024 12:0 0pm PAP May 25, 2024 8:59 am SCREENING/POST CONNIE June 01, 2024 1:3 1pm 3 M FU July 06, 2024 9:43a m ACUTE DIARRHEA AND VOMITING SINCE SATURDAY July 06, 2024 10:33am METABOLIC ACIDOSIS July 07, 2024 12:07 am METABOLIC ACIDOSIS July 07, 2024 3:08p m Reason for Visit Admit Date HTN (hypertension) April 13, 2024 9:38am Hyperthyroidism April 13, 2024 9:38am Type 2 diabetes mellitus April 13, 2024 9:38am Vitamin D deficiency April 13, 2024 9:38am Obesity April 13, 2024 9:38am Health care maintenance April 20, 2 025 3:20pm Anxiety and depression April 20 3:20pm HTN (hypertension) April 20, 2024 3:20pm Hyperlipidemia April 20, 2024 3:20pm GITA (obstructive sleep apnea) March 262024 3:20pm Type 2 diabetes mellitus April 20, 2024 3:20pm Encounter for routine gynecological exam ination May 24, 2024 12:00pm Vaginal yeast infection July 06, 2024 9 :43am HTN (hypertension) July 06, 2024 9:43a m Hyperlipidemia July 06, 2024 9:43a m Hyperthyroidism July 06, 2024 9:43a m Obesity (BMI 30-39.9) July 06, 2024 9:4 3am Type 2 diabetes mellitus July 06, 2024 9:43am Vitamin D deficiency July 06, 2024 9:43 am Diarrhea July 06, 2024 10:33 am Acute kidney injury July 07, 2024 3:08p m Diarrhea July 07, 2024 3:08p m Hyponatremia July 07, 2024 3:08p m Chief Complaint Admit Date 3 M FU April 13, 2024 9:38am EST NEW PT - ENDO PT April 20, 2024 3:20pm Annual (MEDICAL CODER) May 24, 2024 12:0 0pm PAP May 25, 2024 8:59 am SCREENING/POST CONNIE June 01, 2024 1:3 1pm 3 M FU July 06, 2024 9:43a m ACUTE DIARRHEA AND VOMITING SINCE SATURDAY July 06, 2024 10:33am METABOLIC ACIDOSIS July 07, 2024 12:07 am METABOLIC ACIDOSIS July 07, 2024 3:08p m METABOLIC ACIDOSIS July 08, 2024 10:14 am Chief Complaint Admit Date medication refills November 16, 2024 9:41am Reason for Visit Admit Date Diabetic neuropathy November 16, 2024 9:41am Anxiety and depression November 16, 2 025 9:41am HTN (hypertension) November 16, 2024 9:41am Type 2 diabetes mellitus November 16, 2024 9:41am Reason for Referral Specialty Diagnoses / Procedures Referred By Contac t Referred To Contact Diagnoses Left hip pain Procedures XR HIP LEFT 2-3 VIEWS Tiffany Beaver MD [address] [place] [address] Referral ID Status Reason Start Date Expiration Date V isits Requested Visits Authorized [id number] New Request 06/15/2023 07/09/2024 1 1 Additional Source Comments INFORMATION SOURCE (unrecogn ized section and content) DATE CREATED AUTHOR 04/11/2018 [facility] DATE CREATED AUTHOR AUTHOR'S ORGANIZ ATION 06/26/2018 [facility] DATE CREATED AUTHOR AUTHOR'S ORGANIZ ATION 03/08/2020 [facility] DATE CREATED AUTHOR AUTHOR'S ORGANIZ ATION 10/31/2022 [facility] DATE CREATED AUTHOR AUTHOR'S ORGANIZ ATION 06/18/2023 [facility] DATE CREATED AUTHOR AUTHOR'S ORGANIZ ATION 05/11/2024 [facility] DATE CREATED AUTHOR AUTHOR'S ORGANIZ ATION 09/24/2024 [facility] DATE CREATED AUTHOR AUTHOR'S ORGANIZ ATION 11/17/2024 [facility] Goals (unrecognized section and content) Goals may be documented in a n alternate sectionGoals may be documented in an alternate sectionGoals may be documented in an alternate sectionGoals may be documented in an alternate sectionGoals may be documented in an alternate sectionGoals may be documented in an alternate sectionGoals may be documented in an alternate sectionGoals may be documented in an alternate sectionGoals may be documented in an alternate sectionGoals may be documented in an alternate sectionGoals may be documented in an alternate section Care Teams (unrecognized sec tion and content) Team Status: Active Member Role Status Dates Dr. Ivone Hurtado MD Family Provider Active Dr. Ivone Hurtado MD Primary Care Provider Active Team Status: Inactive Member Role Status Dates Dr. Ivone Hurtado MD Primary Care Provider, Refer ring Provider Active Olaf Rene MD Attending Provider Active Team Status: Inactive Member Role Status Dates Dr. Ivone Hurtado MD Primary Care Provider Active Dr. Tim Carballo MD Attending Provider Active Team Status: Inactive Member Role Status Dates Dr. Ivone Hurtado MD Primary Care Provider, Refer ring Provider Active Dr. Gavin Bhakta DO Attending Provider Active Team Status: Inactive Member Role Status Dates Dr. Ivone Hurtado MD Primary Care Provider, Refer ring Provider Active Dr. Freddie Dawson DO Attending Provider Active Team Status: Inactive Member Role Status Dates Dr. Ivone Hurtado MD Primary Care Provider Active Olaf Rene MD Attending Provider, Referring Prov ider Active Team Status: Active Member Role Status Dates Dr. Pancho Tran MD Primary Care Provider Active Team Status: Inactive Member Role Status Dates VEHICLE OPERATOR TECHNICIAN. Sandra Meredith , VEHICLE OPERATOR TECHNICIAN-C Primary Care Provider Activ e Start: January 10, 2024 End: January 10, 2024 VEHICLE OPERATOR TECHNICIAN. Sandra Meredith , VEHICLE OPERATOR TECHNICIAN-C Referring Provider Active Start: January 10, 2024 End: January 10, 2024 Caitlin Tilley VEHICLE OPERATOR TECHNICIAN-C Attending Provider Active Start: January 10, 2024 End: January 10, 2024 Team Status: Inactive Member Role Status Dates VEHICLE OPERATOR TECHNICIAN. Sandra Gomezr , VEHICLE OPERATOR TECHNICIAN-C Primary Care Provider Activ e Start: January 10, 2024 End: January 10, 2024 Caitlin Tilley VEHICLE OPERATOR TECHNICIAN-C Attending Provider Active Start: January 10, 2024 End: January 10, 2024 Caitlin Tilley , VEHICLE OPERATOR TECHNICIAN-C Referring Provider Active Start: January 10, 2024 End: January 10, 2024 Team Status: Inactive Member Role Status Dates VEHICLE OPERATOR TECHNICIAN. Sandra Gomezr , VEHICLE OPERATOR TECHNICIAN-C Primary Care Provider Activ e Start: April 13, 2024 End: April 13, 2024 VEHICLE OPERATOR TECHNICIAN. Sandra Gomezr , VEHICLE OPERATOR TECHNICIAN-C Referring Provider Active Start: April 13, 2024 End: April 13, 2024 Caitlin Tilley VEHICLE OPERATOR TECHNICIAN-C Attending Provider Active Start: April 13, 2024 End: April 13, 2024 Team Status: Inactive Member Role Status Dates VEHICLE OPERATOR TECHNICIANEssence Meredith , VEHICLE OPERATOR TECHNICIAN-C Primary Care Provider Activ e Start: April 20, 2024 End: April 20, 2024 VEHICLE OPERATOR TECHNICIANEssence Meredith , VEHICLE OPERATOR TECHNICIAN-C Referring Provider Active Start: April 20, 2024 End: April 20, 2024 Dr. Pancho Tran MD Attending Provider Active Start: April 20, 2024 End: April 20, 2024 Team Status: Inactive Member Role Status Dates Dr. Pancho Tran MD Primary Care Provider Active Start: April 20, 2024 End: April 20, 2024 Dr. Pancho Tran MD Attending Provider Active Start: April 20, 2024 End: April 20, 2024 Dr. Pancho Tran MD Referring Provider Active Start: April 20, 2024 End: April 20, 2024 Team Status: Inactive Member Role Status Dates Dr. Pancho Tran MD Primary Care Provider Active Start: May 24, 2024 End: May 24, 2024 Dr. Pancho Tran MD Referring Provider Active Start: May 24, 2024 End: May 24, 2024 Pam Small CNM Attending Provider Active S tart: May 24, 2024 End: May 24, 2024 Team Status: Inactive Member Role Status Dates Dr. Pancho Tran MD Primary Care Provider Active Start: May 25, 2024 End: May 25, 2024 Pam Small CNM Attending Provider Active S tart: May 25, 2024 End: May 25, 2024 Pam Small CNM Referring Provider Active S tart: May 25, 2024 End: May 25, 2024 Team Status: Active Member Role Status Dates DANNY NEVAREZ MD Primary Care Provider Active Start: May 06, 2024 ALLEN CARRENO MD Emergency Provider Active Star t: May 06, 2024 DIONISIO RIVAS next of kin Active LIGIA RIVAS Guarantor Active Team Status: Inactive Member Role Status Dates Dr. Pancho Tran MD Primary Care Provider Active Start: June 01, 2024 End: June 01, 2024 Dr. Pancho Tran MD Attending Provider Active Start: June 01, 2024 End: June 01, 2024 Dr. Pancho Tran MD Referring Provider Active Start: June 01, 2024 End: June 01, 2024 Team Status: Inactive Member Role Status Dates ARCADIO Morris Primary Care Provider Active Start: April 13, 2024 End: April 13, 2024 ARCADIO Morris Referring Provider Active Start: April 13, 2024 End: April 13, 2024 ARCADIO Acosta Attending Provider Active Start: April 13, 2024 End: April 13, 2024 Team Status: Inactive Member Role Status Dates ARCADIO Morris Primary Care Provider Active Start: April 20, 2024 End: April 20, 2024 ARCADIO Morris Referring Provider Active Start: April 20, 2024 End: April 20, 2024 Dr. Pancho Tran MD Attending Provider Active Start: April 20, 2024 End: April 20, 2024 Team Status: Inactive Member Role Status Dates ARCADIO Acosta Attending Provider Active Start: July 06, 2024 End: July 06, 2024 Dr. Pancho Tran MD Primary Care Provider Active Start: July 06, 2024 End: July 06, 2024 Dr. Pancho Tran MD Referring Provider Active Start: July 06, 2024 End: July 06, 2024 Team Status: Inactive Member Role Status Dates Dr. Pancho Tran MD Primary Care Provider Active Start: July 06, 2024 End: July 06, 2024 Dr. Pancho Tran MD Referring Provider Active Start: July 06, 2024 End: July 06, 2024 BEVERLY Monsivais Attending Provider Active St art: July 06, 2024 End: July 06, 2024 Team Status: Active Member Role Status Dates Dr. Pancho Tran MD Primary Care Provider Active Start: July 06, 2024 BEVERLY Monsivais Attending Provider Active St art: July 06, 2024 BEVERLY Monsivais Referring Provider Active St art: July 06, 2024 Team Status: Active Member Role Status Dates Dr. Pancho Tran MD Primary Care Provider Active Start: July 06, 2024 Mahendra Devine MD Emergency Provider Active Star t: July 06, 2024 Dr. Alejandra Weiner MD Admit Provider Active St art: July 06, 2024 Dr. Alejandra Weiner MD Attending Provider Active Start: July 06, 2024 Team Status: Active Member Role Status Dates Dr. Pancho Tran MD Primary Care Provider Active Start: July 07, 2024 Mahendra Dveine MD Emergency Provider Active Star t: July 07, 2024 Dr. Alejandra Weiner MD Admit Provider Active St art: July 07, 2024 Dr. Alejandra Weiner MD Attending Provider Active Start: July 07, 2024 Dr. Alejandra Weiner MD Other Provider Active St art: July 07, 2024 Team Status: Inactive Member Role Status Dates Dr. Pancho Tran MD Primary Care Provider Active Start: July 07, 2024 End: July 08, 2024 Mahendra Devine MD Emergency Provider Active Star t: July 07, 2024 End: July 08, 2024 Dr. Alejandra Weiner MD Admit Provider Active St art: July 07, 2024 End: July 08, 2024 Dr. Alejandra Weiner MD Other Provider Active St art: July 07, 2024 End: July 08, 2024 Dr. Cate Sargent MD Attending Provider Active Start: July 07, 2024 End: July 08, 2024 Team Status: Inactive Member Role Status Dates Dr. Pancho Tran MD Primary Care Provider Active Start: July 06, 2024 End: July 06, 2024 BEVERLY Monsivais Attending Provider Active St art: July 06, 2024 End: July 06, 2024 BEVERLY Monsivais Referring Provider Active St art: July 06, 2024 End: July 06, 2024 Team Status: Active Member Role Status Dates Dr. Pancho Tran MD Primary Care Provider Active Start: July 08, 2024 Mahendra Devine MD Emergency Provider Active Star t: July 08, 2024 Dr. Alejandra Weiner MD Admit Provider Active St art: July 08, 2024 Dr. Alejandra Wiener MD Other Provider Active St art: July 08, 2024 Dr. Cate Sargent MD Attending Provider Active Start: July 08, 2024 Dr. Cate Sargent MD Other Provider Active St art: July 08, 2024 Team Status: Active Member Role/Relationship Status Dates Dr. Pancho Tran MD Primary care physician Activ e Team Status: Inactive Member Role/Relationship Status Dates Dr. Pancho Tran MD Primary care physician Activ e Start: November 16, 2024 End: November 16, 2024 Dr. Pancho Tran MD Referring Provider Active Start: November 16, 2024 End: November 16, 2024 ARCADIO Morris Attending physician Active Start: November 16, 2024 End: November 16, 2024 Reason for Visit (unrecogniz ed section and content) Reason Comments Pain 62 y.o F c/o left hi p pain. Noticed pain a few years ago. Constant sharp anterior pain and gets spasms in the quad. Mechanical symptoms. Lifting leg, stairs and walking agg pain. Been going to PT for 5-6 weeks. No prior Hx of hip injuries. Specialty Diagnoses / Procedures Referred By David pruitt Referred To Contact Orthopaedics Diagnoses Pain of left hip Sandra Meredith MD [address] [place] [address] [facility] [address] [place] [address] Referral ID Status Reason Start Date Expiration Date V isits Requested Visits Authorized [id number] Pending Review 06/10/2023 07/04/2024 1 1 Specialty Diagnoses / Procedures Referred By David pruitt Referred To Contact Diagnoses Left hip pain Procedures XR HIP LEFT 2-3 VIEWS Tiffany Beaver MD [address] [place] [address] Referral ID Status Reason Start Date Expiration Date V isits Requested Visits Authorized [id number] New Request 06/15/2023 07/09/2024 1 1 FOR RECORDS PERTAINING TO PATIENTS WHO ARE OR HAVE BEEN ENROLLED IN A CHEMICAL DEPENDENCY/SUBSTANCEABUSE PROGRAM, SOME INFORMATION MAY BE OMITTED. This clinical summary was aggregated from multiple sources. Caution should be exercised in using it in the provision of clinical care. This summary normalizes information from multiple sources, and as a consequence, information in this document may materially change the coding, format and clinical context of patient data. In addition, data may be omitted in some cases. CLINICAL DECISIONS SHOULD BE BASED ON THE PRIMARY CLINICAL RECORDS. [employer] provides no warranty or guarantee of the accuracy or completeness of information in this document.
--- OUTSIDE RECORDS SUMMARY | 2024-12-14 17:51 | XMS RPT_ITS | CCD ---
Author Organization [facility] CliniSyil Care Team Providers Care Mine Engineer Name Role Phone MANE SMITH Attending Unavailable Dr. Ivone Hurtado Primary Care Provider Dr. Ivone Hurtado Referring Provider [phone] Cleopatra RESTAURANT TEAM MEMBER, RESTAURANT TEAM MEMBER-C Lisbeth Attending Provider [phone] Dr. Augusta Sandhu Attending Provider Dr. Ivone Hurtado Primary Care Provider Dr. Ivone Hurtado Referring Provider [phone] MD Olaf Rene Attending Provider Dr. Tim Carballo Attending Provider Dr. Gavin Bhakta Attending Provider Dr. Freddie Dawson Attending Provider Unavailable Primary Care Provider UnavailSANDRA Easton Referring Unavailable TIFFANY BEAVER Attending Unavailable TIFFANY BEAVER Referring Unavailable TIFFANY BEAVER Attending Unavailable DANNY NEVAREZ Primary Care Unavailable ALLEN CARRENO Attending Unavailable Patriciar RESTAURANT TEAM MEMBER-C, RESTAURANT TEAM MEMBEREssence Flores Primary Care Provider Eliu RESTAURANT TEAM MEMBER-C, RESTAURANT TEAM MEMBEREssence Flores Referring Provider Caitlin Wong Attending Provider Caitlin Wong Referring Provider Chelsea KESSLER, Dr. Deleon Attending Provider [phone] Dr. Pancho Tran MD Primary Care Provider Oleghe MD, Dr. Efewongbe Referring Provider Ungerer RESTAURANT TEAM MEMBER-C, 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 Sandra Primary Care Provider Ungerer RESTAURANT TEAM MEMBER-C, 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 Sandra Referring Provider Jarek RESTAURANT TEAM MEMBER-C, Caitlin Attending Provider [phone] Geovanny BEYER, Pam Attending Provider Geovanny BEYER, Pam Referring Provider ROQUE KESSLER, DANNY Church Primary Care Provider ALLEN CARRENO MD Emergency Provider Ungerer RESTAURANT TEAM MEMBER-C, Sandra Primary Care Provider [phone] Ungerer RESTAURANT TEAM MEMBER-C, Sandra Referring Provider Manan Hull Attending Provider Manan Hull Referring Provider Sybil KESSLER, Mahendra Emergency Provider Husam KESSLER, Dr. Roberts Admit Provider Unavailab heri Weiner MD, Dr. Roberts Attending Provider Joan Devine MD, Mahendra Emergency Provider Husam KESSLER, Dr. Roberts Admit Provider Unavailab heri Weiner MD, Dr. Roebrts Attending Provider Joan Weiner MD, Dr. Roberts Other Provider Unavailab heri Sargent MD, Dr. Cate Dsouza Attending Provider Rosetta KESSLER, Dr. Cate Dsouza Other Provider UNGERER, SANDRA RESTAURANT TEAM MEMBER Consulting Unavailable BORRUSO, GAVIN JR Admitting Unavailable BORRUSO, GAVIN JR Primary Care Unavailable BORRUSO, GAVIN JR Attending Unavailable PROVIDER, UNKNOWN Consulting Unavailable UNGERER, SANDRA RESTAURANT TEAM MEMBER Consulting Unavailable UNGERER, SANDRA RESTAURANT TEAM MEMBER Attending Unavailable UNGERER, SANDRA RESTAURANT TEAM MEMBER Admitting Unavailable UNGERER, SANDRA RESTAURANT TEAM MEMBER Primary Care Unavailable PROVIDER, UNKNOWN Consulting Unavailable [...] Ungerer, Sandra Primary Care Unavailable Koram, Cate Linana Attending Unavailable Oleghe, Efewongbe Primary Care Unavailable [...] Dr. Pancho Tran MD Referring Provider Eliu RESTAURANT TEAM MEMBER-CSandra Attending Physician Allergies Allergy Classification Reported Allergen(s) Allergy Type Date of Onset Reaction(s) Facility (1 source) Acetaminophen Drug Allergy 01-07-2023 Itching [facility] (1 source) oxyCODONE Drug Allergy 01-07-2023 Itching [facility] Medications Current Medications Medication Drug Class(es) [...] 12:00am April 13, 2024 10:47am Continuous Glucose Chief Lifestyle Officer (FreeStyle [place] [facility] [place] [facility]) Device (3 sources) Start: 06-01-2023 Continuous Glu cose Chief Lifestyle Officer (FreeStyle Caroline 2 [place] [facility]) Device 06/01/2023 Active Continuous Glucose Sensor [...] mellitus Type 2 diabetes mellitus with hyperglycemia 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 Complies with drug [...] mellitus Type 2 diabetes mellitus with hyperglycemia 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 On Hold: Ordered [...] 07-08-2024 07-06-2024 Episodic Other aftercare (1 source) 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; Translations: [assisted (current) [...] Vis brandyjanelle 11-16-2024 Internal Medicine Office Visit [facility] Internal Medicine [address] [place] [address] OFFICE VISIT Date of Service: 11/16/24 MR#: [id number] Acct: [id number] Name: LIGIA RIVAS Rep #: [id number] : 1960 Provider: ARCADIO miles Age/Sex: 63/F Location: [facility] Status: Signed Intake Vital Signs 07/07/24 14:19 [...] Visit Reasons: medication refills 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 Normal [facility] Basic Metabolic Profile (BMP )on 07-15-2024 BUN Normal - [facility] Comment on above: Result Comment: Canc elled via OM: Order cancelled - Patient discharged Performed By: #### L 501.6901, L500.4050 #### [facility] [address] [place], [address] BUN/CRE Normal - [facility] Comment on above: Result Comment: Canc elled via OM: Order cancelled - Patient discharged Performed By: #### L 501.6901, L500.4050 #### [facility] [address] [place], [address] Calcium Normal 7.6-11.0 [facility] Comment on above: Result Comment: Canc elled via OM: Order cancelled - Patient discharged Performed By: #### L 501.6901, L500.4050 #### [facility] [address] [place], [address] CL Normal 98-108 [facility] Comment on above: Result Comment: Canc elled via OM: Order cancelled - Patient discharged Performed By: #### L 501.6901, L500.4050 #### [facility] [address] [place], [address] CO2 Normal 21.0-32.0 [facility] Comment on above: Result Comment: Canc elled via OM: Order cancelled - Patient discharged Performed By: #### L 501.6901, L500.4050 #### [facility] [address] [place], [address] CREAT,SERUM Normal 0.70-1.20 [facility] Comment on above: Result Comment: Canc elled via OM: Order cancelled - Patient discharged Performed By: #### L 501.6901, L500.4050 #### [facility] [address] [place], [address] eGFR Normal >60 [facility] Comment on above: Result Comment: Canc elled via OM: Order cancelled - Patient discharged Performed By: #### L 501.6901, L500.4050 #### [facility] [address] [place], [address] GAP Normal 5-15 [facility] Comment on above: Result Comment: Canc elled via OM: Order cancelled - Patient discharged Performed By: #### L 501.6901, L500.4050 #### [facility] [address] [place], [address] GLU Normal 70-99 [facility] Comment on above: Result Comment: Canc elled via OM: Order cancelled - Patient discharged Performed By: #### L 501.6901, L500.4050 #### [facility] [address] [place], [address] Potassium Normal 3.3-5.1 [facility] Comment on above: Result Comment: Canc elled via OM: Order cancelled - Patient discharged Performed By: #### L 501.6901, L500.4050 #### [facility] [address] [place], [address] Basic Metabolic Profile (BMP) Normal 133-145 [facility] Comment on above: Result Comment: Canc elled via OM: Order cancelled - Patient discharged Performed By: #### L 501.6901, L500.4050 #### [facility] [address] [place], [address] CBC W/Diff, Automatedon 05-2 Absolute Neut Normal 2.0-7.7 [facility] Comment on above: Result Comment: Canc elled via OM: Order cancelled - Patient discharged Performed By: #### L 501.6901, L500.4050 #### [facility] [address] [place], [address] HCT Normal 37-47 [facility] Comment on above: Result Comment: Canc elled via OM: Order cancelled - Patient discharged Performed By: #### L 501.6901, L500.4050 #### [facility] [address] [place], [address] HGB Normal 12.0-15.0 [facility] Comment on above: Result Comment: Canc elled via OM: Order cancelled - Patient discharged Performed By: #### L 501.6901, L500.4050 #### [facility] [address] [place], [address] MCH Normal 27.0-32.0 [facility] Comment on above: Result Comment: Canc elled via OM: Order cancelled - Patient discharged Performed By: #### L 501.6901, L500.4050 #### [facility] [address] [place], [address] MCHC Normal 32-36 [facility] Comment on above: Result Comment: Canc elled via OM: Order cancelled - Patient discharged Performed By: #### L 501.6901, L500.4050 #### [facility] [address] [place], [address] MCV Normal 81-99 [facility] Comment on above: Result Comment: Canc elled via OM: Order cancelled - Patient discharged Performed By: #### L 501.6901, L500.4050 #### [facility] [address] [place], [address] NEUT% Normal 47-70 [facility] Comment on above: Result Comment: Canc elled via OM: Order cancelled - Patient discharged Performed By: #### L 501.6901, L500.4050 #### [facility] [address] [place], [address] PLT Normal 150-450 [facility] Comment on above: Result Comment: Canc elled via OM: Order cancelled - Patient discharged Performed By: #### L 501.6901, L500.4050 #### [facility] [address] [place], [address] RBC Normal 4.2-5.4 [facility] Comment on above: Result Comment: Canc elled via OM: Order cancelled - Patient discharged Performed By: #### L 501.6901, L500.4050 #### [facility] [address] [place], [address] RDW CV Normal 11.6-14.6 [facility] Comment on above: Result Comment: Canc elled via OM: Order cancelled - Patient discharged Performed By: #### L 501.6901, L500.4050 #### [facility] [address] [place], [address] RDW SD Normal 35.1-43.9 [facility] Comment on above: Result Comment: Canc elled via OM: Order cancelled - Patient discharged Performed By: #### L 501.6901, L500.4050 #### [facility] [address] [place], [address] WBC Normal 4.4-11.0 [facility] Comment on above: Result Comment: Canc elled via OM: Order cancelled - Patient discharged Performed By: #### L 501.6901, L500.4050 #### [facility] [address] [place], [address] Basic Metabolic Profile (BMP )on 07-14-2024 BUN Normal 4-19 [facility] Comment on above: Result Comment: Canc elled via OM: Order cancelled - Patient discharged Performed By: #### L 501.6901, L500.4050 #### [facility] [address] [place], [address] BUN/CRE Normal 10-20 [facility] Comment on above: Result Comment: Canc elled via OM: Order cancelled - Patient discharged Performed By: #### L 501.6901, L500.4050 #### [facility] [address] [place], [address] Calcium Normal 7.6-11.0 [facility] Comment on above: Result Comment: Canc elled via OM: Order cancelled - Patient discharged Performed By: #### L 501.6901, L500.4050 #### [facility] [address] [place], [address] CL Normal 98-108 [facility] Comment on above: Result Comment: Canc elled via OM: Order cancelled - Patient discharged Performed By: #### L 501.6901, L500.4050 #### [facility] [address] [place], [address] CO2 Normal 21.0-32.0 [facility] Comment on above: Result Comment: Canc elled via OM: Order cancelled - Patient discharged Performed By: #### L 501.6901, L500.4050 #### [facility] [address] [place], [address] CREAT,SERUM Normal 0.70-1.20 [facility] Comment on above: Result Comment: Canc elled via OM: Order cancelled - Patient discharged Performed By: #### L 501.6901, L500.4050 #### [facility] [address] [place], [address] eGFR Normal >60 [facility] Comment on above: Result Comment: Canc elled via OM: Order cancelled - Patient discharged Performed By: #### L 501.6901, L500.4050 #### [facility] [address] [place], [address] GAP Normal 5-15 [facility] Comment on above: Result Comment: Canc elled via OM: Order cancelled - Patient discharged Performed By: #### L 501.6901, L500.4050 #### [facility] [address] [place], [address] GLU Normal 70-99 [facility] Comment on above: Result Comment: Canc elled via OM: Order cancelled - Patient discharged Performed By: #### L 501.6901, L500.4050 #### [facility] [address] [place], [address] Potassium Normal 3.3-5.1 [facility] Comment on above: Result Comment: Canc elled via OM: Order cancelled - Patient discharged Performed By: #### L 501.6901, L500.4050 #### [facility] [address] [place], [address] Basic Metabolic Profile (BMP) Normal 133-145 [facility] Comment on above: Result Comment: Canc elled via OM: Order cancelled - Patient discharged Performed By: #### L 501.6901, L500.4050 #### [facility] [address] [place], [address] CBC W/Diff, Automatedon 05-2 Absolute Neut Normal 2.0-7.7 [facility] Comment on above: Result Comment: Canc elled via OM: Order cancelled - Patient discharged Performed By: #### L 501.6901, L500.4050 #### [facility] [address] [place], [address] HCT Normal 37-47 [facility] Comment on above: Result Comment: Canc elled via OM: Order cancelled - Patient discharged Performed By: #### L 501.6901, L500.4050 #### [facility] [address] [place], [address] HGB Normal 12.0-15.0 [facility] Comment on above: Result Comment: Canc elled via OM: Order cancelled - Patient discharged Performed By: #### L 501.6901, L500.4050 #### [facility] [address] [place], [address] MCH Normal 27.0-32.0 [facility] Comment on above: Result Comment: Canc elled via OM: Order cancelled - Patient discharged Performed By: #### L 501.6901, L500.4050 #### [facility] [address] [place], [address] MCHC Normal 32-36 [facility] Comment on above: Result Comment: Canc elled via OM: Order cancelled - Patient discharged Performed By: #### L 501.6901, L500.4050 #### [facility] [address] [place], [address] MCV Normal 81-99 [facility] Comment on above: Result Comment: Canc elled via OM: Order cancelled - Patient discharged Performed By: #### L 501.6901, L500.4050 #### [facility] [address] [place], [address] NEUT% Normal 47-70 [facility] Comment on above: Result Comment: Canc elled via OM: Order cancelled - Patient discharged Performed By: #### L 501.690, L500.4050 #### [facility] [address] [place], [address] PLT Normal 150-450 [facility] Comment on above: Result Comment: Canc elled via OM: Order cancelled - Patient discharged Performed By: #### L 501.690, L500.4050 #### [facility] [address] [place], [address] RBC Normal 4.2-5.4 [facility] Comment on above: Result Comment: Canc elled via OM: Order cancelled - Patient discharged Performed By: #### L 501.690, L500.4050 #### [facility] [address] [place], [address] RDW CV Normal 11.6-14.6 [facility] Comment on above: Result Comment: Canc elled via OM: Order cancelled - Patient discharged Performed By: #### L 501.690, L500.4050 #### [facility] [address] [place], [address] RDW SD Normal 35.1-43.9 [facility] Comment on above: Result Comment: Canc elled via OM: Order cancelled - Patient discharged Performed By: #### L 501.6901, L500.4050 #### [facility] [address] [place], [address] WBC Normal 4.4-11.0 [facility] Comment on above: Result Comment: Canc elled via OM: Order cancelled - Patient discharged Performed By: #### L 501.690, L500.4050 #### [facility] [address] [place], [address] Basic Metabolic Profile (BMP )on 07-13-2024 BUN Normal 4-19 [facility] Comment on above: Result Comment: Canc elled via OM: Order cancelled - Patient discharged Performed By: #### L 501.6901, L500.4050 #### [facility] [address] [place], [address] BUN/CRE Normal 10-20 [facility] Comment on above: Result Comment: Canc elled via OM: Order cancelled - Patient discharged Performed By: #### L 501.6901, L500.4050 #### [facility] [address] [place], [address] Calcium Normal 7.6-11.0 [facility] Comment on above: Result Comment: Canc elled via OM: Order cancelled - Patient discharged Performed By: #### L 501.6901, L500.4050 #### [facility] [address] [place], [address] CL Normal 98-108 [facility] Comment on above: Result Comment: Canc elled via OM: Order cancelled - Patient discharged Performed By: #### L 501.6901, L500.4050 #### [facility] [address] [place], [address] CO2 Normal 21.0-32.0 [facility] Comment on above: Result Comment: Canc elled via OM: Order cancelled - Patient discharged Performed By: #### L 501.6901, L500.4050 #### [facility] [address] [place], [address] CREAT,SERUM Normal 0.70-1.20 [facility] Comment on above: Result Comment: Canc elled via OM: Order cancelled - Patient discharged Performed By: #### L 501.6901, L500.4050 #### [facility] [address] [place], [address] eGFR Normal >60 [facility] Comment on above: Result Comment: Canc elled via OM: Order cancelled - Patient discharged Performed By: #### L 501.6901, L500.4050 #### [facility] [address] [place], [address] GAP Normal 5-15 [facility] Comment on above: Result Comment: Canc elled via OM: Order cancelled - Patient discharged Performed By: #### L 501.6901, L500.4050 #### [facility] [address] [place], [address] GLU Normal 70-99 [facility] Comment on above: Result Comment: Canc elled via OM: Order cancelled - Patient discharged Performed By: #### L 501.6901, L500.4050 #### [facility] [address] [place], [address] Potassium Normal 3.3-5.1 [facility] Comment on above: Result Comment: Canc elled via OM: Order cancelled - Patient discharged Performed By: #### L 501.6901, L500.4050 #### [facility] [address] [place], [address] Basic Metabolic Profile (BMP) Normal 133-145 [facility] Comment on above: Result Comment: Canc elled via OM: Order cancelled - Patient discharged Performed By: #### L 501.6901, L500.4050 #### [facility] [address] [place], [address] CBC W/Diff, Automatedon 05-2 Absolute Neut Normal 2.0-7.7 [facility] Comment on above: Result Comment: Canc elled via OM: Order cancelled - Patient discharged Performed By: #### L 501.6901, L500.4050 #### [facility] [address] [place], [address] HCT Normal 37-47 [facility] Comment on above: Result Comment: Canc elled via OM: Order cancelled - Patient discharged Performed By: #### L 501.6901, L500.4050 #### [facility] [address] [place], [address] HGB Normal 12.0-15.0 [facility] Comment on above: Result Comment: Canc elled via OM: Order cancelled - Patient discharged Performed By: #### L 501.6901, L500.4050 #### [facility] [address] [place], [address] MCH Normal 27.0-32.0 [facility] Comment on above: Result Comment: Canc elled via OM: Order cancelled - Patient discharged Performed By: #### L 501.6901, L500.4050 #### [facility] [address] [place], [address] MCHC Normal 32-36 [facility] Comment on above: Result Comment: Canc elled via OM: Order cancelled - Patient discharged Performed By: #### L 501.6901, L500.4050 #### [facility] [address] [place], [address] MCV Normal 81-99 [facility] Comment on above: Result Comment: Canc elled via OM: Order cancelled - Patient discharged Performed By: #### L 501.6901, L500.4050 #### [facility] [address] [place], [address] NEUT% Normal 47-70 [facility] Comment on above: Result Comment: Canc elled via OM: Order cancelled - Patient discharged Performed By: #### L 501.6901, L500.4050 #### [facility] [address] [place], [address] PLT Normal 150-450 [facility] Comment on above: Result Comment: Canc elled via OM: Order cancelled - Patient discharged Performed By: #### L 501.6901, L500.4050 #### [facility] [address] [place], [address] RBC Normal 4.2-5.4 [facility] Comment on above: Result Comment: Canc elled via OM: Order cancelled - Patient discharged Performed By: #### L 501.6901, L500.4050 #### [facility] [address] [place], [address] RDW CV Normal 11.6-14.6 [facility] Comment on above: Result Comment: Canc elled via OM: Order cancelled - Patient discharged Performed By: #### L 501.6901, L500.4050 #### [facility] [address] [place], [address] RDW SD Normal 35.1-43.9 [facility] Comment on above: Result Comment: Canc elled via OM: Order cancelled - Patient discharged Performed By: #### L 501.6901, L500.4050 #### [facility] [address] [place], [address] WBC Normal 4.4-11.0 [facility] Comment on above: Result Comment: Canc elled via OM: Order cancelled - Patient discharged Performed By: #### L 501.6901, L500.4050 #### [facility] [address] [place], [address] Basic Metabolic Profile (BMP )on 07-12-2024 BUN Normal 4-19 [facility] Comment on above: Result Comment: Canc elled via OM: Order cancelled - Patient discharged Performed By: #### L 500.2500, L100.0100 ####[facility] [address] [place], [address] BUN/CRE Normal 10-20 [facility] Comment on above: Result Comment: Canc elled via OM: Order cancelled - Patient discharged Performed By: #### L 500.2500, L100.0100 ####[facility] [address] [place], [address] Calcium Normal 7.6-11.0 [facility] Comment on above: Result Comment: Canc elled via OM: Order cancelled - Patient discharged Performed By: #### L 500.2500, L100.0100 ####[facility] [address] [place], [address] CL Normal 98-108 [facility] Comment on above: Result Comment: Canc elled via OM: Order cancelled - Patient discharged Performed By: #### L 500.2500, L100.0100 ####[facility] [address] [place], [address] CO2 Normal 21.0-32.0 [facility] Comment on above: Result Comment: Canc elled via OM: Order cancelled - Patient discharged Performed By: #### L 500.2500, L100.0100 ####[facility] [address] [place], [address] CREAT,SERUM Normal 0.70-1.20 [facility] Comment on above: Result Comment: Canc elled via OM: Order cancelled - Patient discharged Performed By: #### L 500.2500, L100.0100 ####[facility] [address] [place], [address] eGFR Normal >60 [facility] Comment on above: Result Comment: Canc elled via OM: Order cancelled - Patient discharged Performed By: #### L 500.2500, L100.0100 ####[facility] [address] [place], [address] GAP Normal 5-15 [facility] Comment on above: Result Comment: Canc elled via OM: Order cancelled - Patient discharged Performed By: #### L 500.2500, L100.0100 ####[facility] [address] [place], [address] GLU Normal 70-99 [facility] Comment on above: Result Comment: Canc elled via OM: Order cancelled - Patient discharged Performed By: #### L 500.2500, L100.0100 ####[facility] [address] [place], [address] Potassium Normal 3.3-5.1 [facility] Comment on above: Result Comment: Canc elled via OM: Order cancelled - Patient discharged Performed By: #### L 500.2500, L100.0100 ####[facility] [address] [place], [address] Basic Metabolic Profile (BMP) Normal 133-145 [facility] Comment on above: Result Comment: Canc elled via OM: Order cancelled - Patient discharged Performed By: #### L 500.2500, L100.0100 ####[facility] [address] [place], [address] CBC W/Diff, Automatedon 05-2 Absolute Neut Normal 2.0-7.7 [facility] Comment on above: Result Comment: Canc elled via OM: Order cancelled - Patient discharged Performed By: #### L 500.2500, L100.0100 ####[facility] [address] [place], [address] HCT Normal 37-47 [facility] Comment on above: Result Comment: Canc elled via OM: Order cancelled - Patient discharged Performed By: #### L 500.2500, L100.0100 ####[facility] [address] [place], [address] HGB Normal 12.0-15.0 [facility] Comment on above: Result Comment: Canc elled via OM: Order cancelled - Patient discharged Performed By: #### L 500.2500, L100.0100 ####[facility] [address] [place], [address] MCH Normal 27.0-32.0 [facility] Comment on above: Result Comment: Canc elled via OM: Order cancelled - Patient discharged Performed By: #### L 500.2500, L100.0100 ####[facility] [address] [place], [address] MCHC Normal 32-36 [facility] Comment on above: Result Comment: Canc elled via OM: Order cancelled - Patient discharged Performed By: #### L 500.2500, L100.0100 ####[facility] [address] [place], [address] MCV Normal 81-99 [facility] Comment on above: Result Comment: Canc elled via OM: Order cancelled - Patient discharged Performed By: #### L 500.2500, L100.0100 ####[facility] [address] [place], [address] NEUT% Normal 47-70 [facility] Comment on above: Result Comment: Canc elled via OM: Order cancelled - Patient discharged Performed By: #### L 500.2500, L100.0100 ####[facility] [address] [place], [address] PLT Normal 150-450 [facility] Comment on above: Result Comment: Canc elled via OM: Order cancelled - Patient discharged Performed By: #### L 500.2500, L100.0100 ####[facility] [address] [place], [address] RBC Normal 4.2-5.4 [facility] Comment on above: Result Comment: Canc elled via OM: Order cancelled - Patient discharged Performed By: #### L 500.2500, L100.0100 ####[facility] [address] [place], [address] RDW CV Normal 11.6-14.6 [facility] Comment on above: Result Comment: Canc elled via OM: Order cancelled - Patient discharged Performed By: #### L 500.2500, L100.0100 ####[facility] [address] [place], [address] RDW SD Normal 35.1-43.9 [facility] Comment on above: Result Comment: Canc elled via OM: Order cancelled - Patient discharged Performed By: #### L 500.2500, L100.0100 ####[facility] [address] [place], [address] WBC Normal 4.4-11.0 [facility] Comment on above: Result Comment: Canc elled via OM: Order cancelled - Patient discharged Performed By: #### L 500.2500, L100.0100 ####[facility] [address] [place], [address] Basic Metabolic Profile (BMP )on 07-11-2024 BUN Normal - [facility] Comment on above: Result Comment: Canc elled via OM: Order cancelled - Patient discharged Performed By: #### L 9000.0810 #### [facility] [address] [place], [address] BUN/CRE Normal - [facility] Comment on above: Result Comment: Canc elled via OM: Order cancelled - Patient discharged Performed By: #### L 9000.0810 #### [facility] [address] [place], [address] Calcium Normal 7.6-11.0 [facility] Comment on above: Result Comment: Canc elled via OM: Order cancelled - Patient discharged Performed By: #### L 9000.0810 #### [facility] [address] [place], [address] CL Normal 98-108 [facility] Comment on above: Result Comment: Canc elled via OM: Order cancelled - Patient discharged Performed By: #### L 9000.0810 #### [facility] [address] [place], [address] CO2 Normal 21.0-32.0 [facility] Comment on above: Result Comment: Canc elled via OM: Order cancelled - Patient discharged Performed By: #### L 9000.0810 #### [facility] [address] [place], [address] CREAT,SERUM Normal 0.70-1.20 [facility] Comment on above: Result Comment: Canc elled via OM: Order cancelled - Patient discharged Performed By: #### L 9000.0810 #### [facility] [address] [place], [address] eGFR Normal >60 [facility] Comment on above: Result Comment: Canc elled via OM: Order cancelled - Patient discharged Performed By: #### L 9000.0810 #### [facility] [address] [place], [address] GAP Normal 5-15 [facility] Comment on above: Result Comment: Canc elled via OM: Order cancelled - Patient discharged Performed By: #### L 9000.0810 #### [facility] [address] [place], [address] GLU Normal 70-99 [facility] Comment on above: Result Comment: Canc elled via OM: Order cancelled - Patient discharged Performed By: #### L 9000.0810 #### [facility] [address] [place], [address] Potassium Normal 3.3-5.1 [facility] Comment on above: Result Comment: Canc elled via OM: Order cancelled - Patient discharged Performed By: #### L 9000.0810 #### [facility] [address] [place], [address] Basic Metabolic Profile (BMP) Normal 133-145 [facility] Comment on above: Result Comment: Canc elled via OM: Order cancelled - Patient discharged Performed By: #### L 9000.0810 #### [facility] [address] [place], [address] CBC W/Diff, Automatedon 05-2 0-2024 Absolute Neut Normal 2.0-7.7 [facility] Comment on above: Result Comment: Canc elled via OM: Order cancelled - Patient discharged Performed By: #### L 9000.0810 #### [facility] [address] [place], [address] HCT Normal 37-47 [facility] Comment on above: Result Comment: Canc elled via OM: Order cancelled - Patient discharged Performed By: #### L 9000.0810 #### [facility] [address] [place], [address] HGB Normal 12.0-15.0 [facility] Comment on above: Result Comment: Canc elled via OM: Order cancelled - Patient discharged Performed By: #### L 9000.0810 #### [facility] [address] [place], [address] MCH Normal 27.0-32.0 [facility] Comment on above: Result Comment: Canc elled via OM: Order cancelled - Patient discharged Performed By: #### L 9000.0810 #### [facility] [address] [place], [address] MCHC Normal 32-36 [facility] Comment on above: Result Comment: Canc elled via OM: Order cancelled - Patient discharged Performed By: #### L 9000.0810 #### [facility] [address] [place], [address] MCV Normal 81-99 [facility] Comment on above: Result Comment: Canc elled via OM: Order cancelled - Patient discharged Performed By: #### L 9000.0810 #### [facility] [address] [place], [address] NEUT% Normal 47-70 [facility] Comment on above: Result Comment: Canc elled via OM: Order cancelled - Patient discharged Performed By: #### L 9000.0810 #### [facility] [address] [place], [address] PLT Normal 150-450 [facility] Comment on above: Result Comment: Canc elled via OM: Order cancelled - Patient discharged Performed By: #### L 9000.0810 #### [facility] [address] [place], [address] RBC Normal 4.2-5.4 [facility] Comment on above: Result Comment: Canc elled via OM: Order cancelled - Patient discharged Performed By: #### L 9000.0810 #### [facility] [address] [place], [address] RDW CV Normal 11.6-14.6 [facility] Comment on above: Result Comment: Canc elled via OM: Order cancelled - Patient discharged Performed By: #### L 9000.0810 #### [facility] [address] [place], [address] RDW SD Normal 35.1-43.9 [facility] Comment on above: Result Comment: Canc elled via OM: Order cancelled - Patient discharged Performed By: #### L 9000.0810 #### [facility] [address] [place], [address] WBC Normal 4.4-11.0 [facility] Comment on above: Result Comment: Canc elled via OM: Order cancelled - Patient discharged Performed By: #### L 9000.0810 #### [facility] [address] [place], [address] Basic Metabolic Profile (BMP )on 07-10-2024 BUN Normal 4-19 [facility] Comment on above: Result Comment: Canc elled via OM: Order cancelled - Patient discharged Performed By: #### L 500.2500, L100.0100 ####[facility] [address] [place], [address] BUN/CRE Normal 10-20 [facility] Comment on above: Result Comment: Canc elled via OM: Order cancelled - Patient discharged Performed By: #### L 500.2500, L100.0100 ####[facility] [address] [place], [address] Calcium Normal 7.6-11.0 [facility] Comment on above: Result Comment: Canc elled via OM: Order cancelled - Patient discharged Performed By: #### L 500.2500, L100.0100 ####[facility] [address] [place], [address] CL Normal 98-108 [facility] Comment on above: Result Comment: Canc elled via OM: Order cancelled - Patient discharged Performed By: #### L 500.2500, L100.0100 ####[facility] [address] [place], [address] CO2 Normal 21.0-32.0 [facility] Comment on above: Result Comment: Canc elled via OM: Order cancelled - Patient discharged Performed By: #### L 500.2500, L100.0100 ####[facility] [address] [place], [address] CREAT,SERUM Normal 0.70-1.20 [facility] Comment on above: Result Comment: Canc elled via OM: Order cancelled - Patient discharged Performed By: #### L 500.2500, L100.0100 ####[facility] [address] [place], [address] eGFR Normal >60 [facility] Comment on above: Result Comment: Canc elled via OM: Order cancelled - Patient discharged Performed By: #### L 500.2500, L100.0100 ####[facility] [address] [place], [address] GAP Normal 5-15 [facility] Comment on above: Result Comment: Canc elled via OM: Order cancelled - Patient discharged Performed By: #### L 500.2500, L100.0100 ####[facility] [address] [place], [address] GLU Normal 70-99 [facility] Comment on above: Result Comment: Canc elled via OM: Order cancelled - Patient discharged Performed By: #### L 500.2500, L100.0100 ####[facility] [address] [place], [address] Potassium Normal 3.3-5.1 [facility] Comment on above: Result Comment: Canc elled via OM: Order cancelled - Patient discharged Performed By: #### L 500.2500, L100.0100 ####[facility] [address] [place], [address] Basic Metabolic Profile (BMP) Normal 133-145 [facility] Comment on above: Result Comment: Canc elled via OM: Order cancelled - Patient discharged Performed By: #### L 500.2500, L100.0100 ####[facility] [address] [place], [address] CBC W/Diff, Automatedon 05- Absolute Neut Normal 2.0-7.7 [facility] Comment on above: Result Comment: Canc elled via OM: Order cancelled - Patient discharged Performed By: #### L 500.2500, L100.0100 ####[facility] [address] [place], [address] HCT Normal 37-47 [facility] Comment on above: Result Comment: Canc elled via OM: Order cancelled - Patient discharged Performed By: #### L 500.2500, L100.0100 ####[facility] [address] [place], [address] HGB Normal 12.0-15.0 [facility] Comment on above: Result Comment: Canc elled via OM: Order cancelled - Patient discharged Performed By: #### L 500.2500, L100.0100 ####[facility] [address] [place], [address] MCH Normal 27.0-32.0 [facility] Comment on above: Result Comment: Canc elled via OM: Order cancelled - Patient discharged Performed By: #### L 500.2500, L100.0100 ####[facility] [address] [place], [address] MCHC Normal 32-36 [facility] Comment on above: Result Comment: Canc elled via OM: Order cancelled - Patient discharged Performed By: #### L 500.2500, L100.0100 ####[facility] [address] [place], [address] MCV Normal 81-99 [facility] Comment on above: Result Comment: Canc elled via OM: Order cancelled - Patient discharged Performed By: #### L 500.2500, L100.0100 ####[facility] [address] [place], [address] NEUT% Normal 47-70 [facility] Comment on above: Result Comment: Canc elled via OM: Order cancelled - Patient discharged Performed By: #### L 500.2500, L100.0100 ####[facility] [address] [place], [address] PLT Normal 150-450 [facility] Comment on above: Result Comment: Canc elled via OM: Order cancelled - Patient discharged Performed By: #### L 500.2500, L100.0100 ####[facility] [address] [place], [address] RBC Normal 4.2-5.4 [facility] Comment on above: Result Comment: Canc elled via OM: Order cancelled - Patient discharged Performed By: #### L 500.2500, L100.0100 ####[facility] [address] [place], [address] RDW CV Normal 11.6-14.6 [facility] Comment on above: Result Comment: Canc elled via OM: Order cancelled - Patient discharged Performed By: #### L 500.2500, L100.0100 ####[facility] [address] [place], [address] RDW SD Normal 35.1-43.9 [facility] Comment on above: Result Comment: Canc elled via OM: Order cancelled - Patient discharged Performed By: #### L 500.2500, L100.0100 ####[facility] [address] [place], [address] WBC Normal 4.4-11.0 [facility] Comment on above: Result Comment: Canc elled via OM: Order cancelled - Patient discharged Performed By: #### L 500.2500, L100.0100 ####[facility] [address] [place], [address] Basic Metabolic Profile (BMP )on 07-09-2024 BUN Normal 4-19 [facility] Comment on above: Result Comment: Canc elled via OM: Order cancelled - Patient discharged Performed By: #### L 500.2500, L100.0100 ####[facility] [address] [place], [address] BUN/CRE Normal 10-20 [facility] Comment on above: Result Comment: Canc elled via OM: Order cancelled - Patient discharged Performed By: #### L 500.2500, L100.0100 ####[facility] [address] [place], [address] Calcium Normal 7.6-11.0 [facility] Comment on above: Result Comment: Canc elled via OM: Order cancelled - Patient discharged Performed By: #### L 500.2500, L100.0100 ####[facility] [address] [place], [address] CL Normal 98-108 [facility] Comment on above: Result Comment: Canc elled via OM: Order cancelled - Patient discharged Performed By: #### L 500.2500, L100.0100 ####[facility] [address] [place], [address] CO2 Normal 21.0-32.0 [facility] Comment on above: Result Comment: Canc elled via OM: Order cancelled - Patient discharged Performed By: #### L 500.2500, L100.0100 ####[facility] [address] [place], [address] CREAT,SERUM Normal 0.70-1.20 [facility] Comment on above: Result Comment: Canc elled via OM: Order cancelled - Patient discharged Performed By: #### L 500.2500, L100.0100 ####[facility] [address] [place], [address] eGFR Normal >60 [facility] Comment on above: Result Comment: Canc elled via OM: Order cancelled - Patient discharged Performed By: #### L 500.2500, L100.0100 ####[facility] [address] [place], [address] GAP Normal 5-15 [facility] Comment on above: Result Comment: Canc elled via OM: Order cancelled - Patient discharged Performed By: #### L 500.2500, L100.0100 ####[facility] [address] [place], [address] GLU Normal 70-99 [facility] Comment on above: Result Comment: Canc elled via OM: Order cancelled - Patient discharged Performed By: #### L 500.2500, L100.0100 ####[facility] [address] [place], [address] Potassium Normal 3.3-5.1 [facility] Comment on above: Result Comment: Canc elled via OM: Order cancelled - Patient discharged Performed By: #### L 500.2500, L100.0100 ####[facility] [address] [place], [address] Basic Metabolic Profile (BMP) Normal 133-145 [facility] Comment on above: Result Comment: Canc elled via OM: Order cancelled - Patient discharged Performed By: #### L 500.2500, L100.0100 ####[facility] [address] [place], [address] CBC W/Diff, Automatedon 05-1 Absolute Neut Normal 2.0-7.7 [facility] Comment on above: Result Comment: Canc elled via OM: Order cancelled - Patient discharged Performed By: #### L 500.2500, L100.0100 ####[facility] [address] [place], [address] HCT Normal 37-47 [facility] Comment on above: Result Comment: Canc elled via OM: Order cancelled - Patient discharged Performed By: #### L 500.2500, L100.0100 ####[facility] [address] [place], [address] HGB Normal 12.0-15.0 [facility] Comment on above: Result Comment: Canc elled via OM: Order cancelled - Patient discharged Performed By: #### L 500.2500, L100.0100 ####[facility] [address] [place], [address] MCH Normal 27.0-32.0 [facility] Comment on above: Result Comment: Canc elled via OM: Order cancelled - Patient discharged Performed By: #### L 500.2500, L100.0100 ####[facility] [address] [place], [address] MCHC Normal 32-36 [facility] Comment on above: Result Comment: Canc elled via OM: Order cancelled - Patient discharged Performed By: #### L 500.2500, L100.0100 ####[facility] [address] [place], [address] MCV Normal 81-99 [facility] Comment on above: Result Comment: Canc elled via OM: Order cancelled - Patient discharged Performed By: #### L 500.2500, L100.0100 ####[facility] [address] [place], [address] NEUT% Normal 47-70 [facility] Comment on above: Result Comment: Canc elled via OM: Order cancelled - Patient discharged Performed By: #### L 500.2500, L100.0100 ####[facility] [address] [place], [address] PLT Normal 150-450 [facility] Comment on above: Result Comment: Canc elled via OM: Order cancelled - Patient discharged Performed By: #### L 500.2500, L100.0100 ####[facility] [address] [place], [address] RBC Normal 4.2-5.4 [facility] Comment on above: Result Comment: Canc elled via OM: Order cancelled - Patient discharged Performed By: #### L 500.2500, L100.0100 ####[facility] [address] [place], [address] RDW CV Normal 11.6-14.6 [facility] Comment on above: Result Comment: Canc elled via OM: Order cancelled - Patient discharged Performed By: #### L 500.2500, L100.0100 ####[facility] [address] [place], [address] RDW SD Normal 35.1-43.9 [facility] Comment on above: Result Comment: Canc elled via OM: Order cancelled - Patient discharged Performed By: #### L 500.2500, L100.0100 ####[facility] [address] [place], [address] WBC Normal 4.4-11.0 [facility] Comment on above: Result Comment: Canc elled via OM: Order cancelled - Patient discharged Performed By: #### L 500.2500, L100.0100 ####[facility] [address] [place], [address] Absolute lymphocyte countOrd ered By: Cate Sargent on 07-08-2024 Lymphocytes Auto (Unsp spec) [#/Vol] 3.57 10*3/uL 0.83-4.51 [facility] Absolute neutrophil countOrd ered By: Cate Sargent on 07-08-2024 Neutrophils (Bld) [#/Vol] 4.5 10*3/uL 2.0-7.7 [facility] Anion gap in Serum or Plasma Ordered By: Cate Sargent on 07-08-2024 Anion gap [Moles/Vol] 9 mmol/L 5-15 [facility] Automated lymphocyte count a s percentage of total leukocytesOrdered By: Cate Sargent on 07-08-2024 Lymphocytes/100 WBC Auto (Unsp spec) 39.4 % - [facility] BUN/creatinine ratioOrdered By: Cate Sargent on 07-08-2024 Urea nitrogen/Creatinine [Mass ratio] 30.0 mg/mg High 10- [facility] Basic Metabolic Profile (BMP )on 07-08-2024 BUN/CRE 30.0 RATIO High 10-20 [facility] Comment on above: Performed By: #### L 501.6901, L500.4050 #### [facility] [address] [place], [address] Calcium [Mass/Vol] 8.4 mg/dL Normal 7.6-11.0 [facility] Comment on above: Performed By: #### L 501.6901, L500.4050 #### [facility] [address] [place], [address] Chloride [Moles/Vol] 112 mmol/L High 98-108 [facility] Comment on above: Performed By: #### L 501.6901, L500.4050 #### [facility] [address] [place], [address] CO2 [Moles/Vol] 17.6 mmol/L Low 21.0-32.0 [facility] Comment on above: Performed By: #### L 501.6901, L500.4050 #### [facility] [address] [place], [address] Creatinine [Mass/Vol] 0.66 mg/dL Low 0.70-1.20 [facility] Comment on above: Performed By: #### L 501.6901, L500.4050 #### [facility] [address] [place], [address] ECRCL 114.35 ml/min Normal 50-250 [facility] Comment on above: Performed By: #### L 501.6901, L500.4050 #### [facility] [address] [place], [address] GAP 9 Normal 5-15 [facility] Comment on above: Performed By: #### L 501.6901, L500.4050 #### [facility] [address] [place], [address] GFR/1.73 sq M.predicted among non-blacks MDRD (S/P/Bld) [Vol rate/Area] 100 mL/min/{1.73_m2} Normal >60 [facility] Comment on above: Result Comment: mL/m in/1.73m2 CKD-EPI Creatinine Equation (2020) Performed By: #### L 501.6901, L500.4050 #### [facility] [address] [place], [address] Glucose [Mass/Vol] 149 mg/dL High 70-99 [facility] Comment on above: Performed By: #### L 501.6901, L500.4050 #### [facility] [address] [place], [address] Potassium [Moles/Vol] 3.3 mmol/L Normal 3.3-5.1 [facility] Comment on above: Performed By: #### L 501.6901, L500.4050 #### [facility] [address] [place], [address] Sodium [Moles/Vol] 138 mmol/L Normal 133-145 [facility] Comment on above: Performed By: #### L 501.6901, L500.4050 #### [facility] [address] [place], [address] Urea nitrogen [Mass/Vol] 20 mg/dL High 4-19 [facility] Comment on above: Performed By: #### L 501.6901, L500.4050 #### [facility] [address] [place], [address] Basophil percentageOrdered B y: Cate Sargent on 07-08-2024 Basophils/100 WBC (Bld) 0.6 % 0-1 [facility] CBC W/Diff, Automatedon 06-22 PLT MORPH GIANT Normal [facility] Comment on above: Performed By: #### L 501.6901, L500.4050 #### [facility] [address] [place], [address] REACTIVE LYMPH 2+ Normal [facility] Comment on above: Performed By: #### L 501.6901, L500.4050 #### [facility] [address] [place], [address] Carbon dioxide, total [Moles /volume] in Central venous bloodOrdered By: Cate Sargent on 07-08-2024 CO2 [Moles/Vol] 17.6 mmol/L Low 21.0-32.0 [facility] Chloride assayOrdered By: Na liza Sargent on 07-08-2024 Chloride [Moles/Vol] 112 mmol/L High 98-108 [facility] Discharge Instructionon 06-22 Discharge Instruction [facility] Medical Records Department [address] [place] [address] Instructions for Home/Discharge Instructions 07/08/24 1010 MR#: [id number] Acct: [id number] Name: LIGIA RIVAS Rep #: [id number] : 1960 63 From: Cate Sargent MD [...] MD; Dr. Pancho Tran MD Signed Normal [facility] Eosinophil percentageOrdered By: Cate Sargent on 07-08-2024 Eosinophils/100 WBC (Bld) 1.9 % 0-5 [facility] Erythrocyte distribution wid th ratioOrdered By: [facility] Erythrocyte distribution width (RBC) [Ratio] 14.1 % 11.6-14.6 [facility] Erythrocyte distribution wid th standard deviationOrdered By: [facility] on 07-08-2024 Erythrocyte distribution width (RBC) [Ratio] 42.8 fl 35.1-43.9 [facility] Glomerular filtration rate ( GFR) estimation/1.73 sq m using serum, plasma, or whole bOrdered By: [facility] on 07-08-2024 GFR/1.73 sq M.predicted among non-blacks MDRD (S/P/Bld) [Vol rate/Area] 100 mL/min/{1.73_m2} >60 [facility] Comment on above: mL/min/1.73m2 CKD-EP I Creatinine Equation (2020) Hematocrit Auto (Bld) [Volum e fraction]Ordered By: [facility] 07-08-2024 Hematocrit (Bld) [Volume fraction] 39.8 % 37-47 [facility] Hemoglobin measurementOrdere d By: [facility] 07-08-2024 Hemoglobin (Bld) [Mass/Vol] 13.7 g/dL 12.0-15.0 [facility] Immature granulocytes/100 WB C Auto (Bld)Ordered By: [facility] 07-08-2024 Immature granulocytes/100 WBC (Bld) 0.300 % 0.0-0.9 [facility] Comment on above: IG% - Immature Granu locytes (promyelocytes, myelocytes and metamyelocytes) > 1% indicates that a LEFT SHIFT is Present. MCV (mean corpuscular volume ) determinationOrdered By: Cate [facility] on 07-08-2024 MCV (RBC) [Entitic vol] 83.1 fL 81-99 [facility] Mean corpuscular hemoglobin (MCH) determinationOrdered By: [facility] 07-08-2024 MCH (RBC) [Entitic mass] 28.6 pg 27.0-32.0 [facility] Mean corpuscular hemoglobin concentration (MCHC) determinationOrdered By: [facility] 07-08-2024 MCHC (RBC) [Mass/Vol] 34.4 g/dL 32-36 [facility] Mean platelet volume determi nationOrdered By: Cate Sargent on 07-08-2024 Platelet mean volume (Bld) [Entitic vol] 10.8 fL 6.2-12.0 [facility] Monocyte percentageOrdered B y: Cate Sargent on 07-08-2024 Monocytes/100 WBC (Bld) 8.0 % 0-10 [facility] Neutrophil percentageOrdered By: Cate Sargent on 07-08-2024 Neutrophils/100 WBC (Bld) 49.8 % 47-70 [facility] Nucleated red blood cell per centageOrdered By: Cate Sargent on 07-08-2024 Nucleated RBC/100 WBC (Bld) [Ratio] 0 % 0-5 [facility] Platelet countOrdered By: Liza Sargent on 07-08-2024 Platelets (Bld) [#/Vol] 222 10*3/uL 150-450 [facility] Platelet morphologyOrdered B y: Cate Sargent on 07-08-2024 Platelet morphology finding Nom (Bld) GIANT [facility] Potassium measurement (mass/ volume)Ordered By: Cate Sargent on 07-08-2024 Potassium (Unsp spec) [Mass/Vol] 3.3 mmol/L 3.3-5.1 [facility] RBC Auto (Bld) [#/Vol]Ordere d By: Cate Sargent on 07-08-2024 RBC (Bld) [#/Vol] 4.79 10*6/uL 4.2-5.4 [facility] Serum creatinine measurement (mass/volume)Ordered By: Cate Sargent on 07-08-2024 Creatinine [Mass/Vol] 0.66 mg/dL Low 0.70-1.20 [facility] Serum glucose measurement (m ass/volume)Ordered By: Cate Sargent on 07-08-2024 Glucose [Mass/Vol] 149 mg/dL High 70-99 [facility] Serum or plasma calcium ricky urement (mass/volume)Ordered By: Cate Sargent on 07-08-2024 Calcium [Mass/Vol] 8.4 mg/dL 7.6-11.0 [facility] Serum or plasma urea nitroge n measurement (mass/volume)Ordered By: Catedevi Sargent on 07-08-2024 Urea nitrogen [Mass/Vol] 20 mg/dL High 4-19 [facility] Sodium levelOrdered By: Catedevi Sargent on 07-08-2024 Sodium [Moles/Vol] 138 mmol/L 133-145 [facility] White blood cell (WBC) count Ordered By: Catedevi Sargent on 07-08-2024 WBC (Bld) [#/Vol] 9.1 10*3/uL 4.4-11.0 [facility] Basic Metabolic Profile (BMP )on 07-07-2024 BUN/CRE 45.1 RATIO High 10-20 [facility] Comment on above: Performed By: #### L 100.0100 #### [facility] [address] [place], [address] Calcium [Mass/Vol] 8.5 mg/dL Normal 7.6-11.0 [facility] Comment on above: Performed By: #### L 100.0100 #### [facility] [address] [place], [address] Chloride [Moles/Vol] 106 mmol/L Normal 98-108 [facility] Comment on above: Performed By: #### L 100.0100 #### [facility] [address] [place], [address] CO2 [Moles/Vol] 13.6 mmol/L Low 21.0-32.0 [facility] Comment on above: Performed By: #### L 100.0100 #### [facility] [address] [place], [address] Creatinine [Mass/Vol] 1.00 mg/dL Normal 0.70-1.20 [facility] Comment on above: Performed By: #### L 100.0100 #### [facility] [address] [place], [address] ECRCL 75.47 ml/min Normal 50-250 [facility] Comment on above: Performed By: #### L 100.0100 #### [facility] [address] [place], [address] GAP 13 Normal 5-15 [facility] Comment on above: Performed By: #### L 100.0100 #### [facility] [address] [place], [address] GFR/1.73 sq M.predicted among non-blacks MDRD (S/P/Bld) [Vol rate/Area] 64 mL/min/{1.73_m2} Normal >60 [facility] Comment on above: Result Comment: mL/m in/1.73m2 CKD-EPI Creatinine Equation (2020) Performed By: #### L 100.0100 #### [facility] [address] [place], [address] Glucose [Mass/Vol] 154 mg/dL High 70-99 [facility] Comment on above: Performed By: #### L 100.0100 #### [facility] [address] [place], [address] Potassium [Moles/Vol] 3.1 mmol/L Low 3.3-5.1 [facility] Comment on above: Performed By: #### L 100.0100 #### [facility] [address] [place], [address] Sodium [Moles/Vol] 132 mmol/L Low 133-145 [facility] Comment on above: Performed By: #### L 100.0100 #### [facility] [address] [place], [address] Urea nitrogen [Mass/Vol] 45 mg/dL High 4-19 [facility] Comment on above: Performed By: #### L 100.0100 #### [facility] [address] [place], [address] Bedside Glucoseon 07-07-2024 FINGERSTICK GLU 174 mg/dL High 74-106 [facility] Comment on above: Result Comment: SHAMA GEMENT OF PATIENT CARE PER NURSING PROTOCOL Performed By: #### L 501.080 ####[facility] [address] [facility] [address] FINGERSTICK GLU 172 mg/dL High [facility]106 [facility] Comment on above: Result Comment: SHAMA GEMENT OF PATIENT CARE PER NURSING PROTOCOL Performed By: #### L 501.6901, L500.4050 #### [facility] [address] [facility] [address] FINGERSTICK GLU 196 mg/dL High [facility]106 [facility] Comment on above: Result Comment: SHAMA GEMENT OF PATIENT CARE PER NURSING PROTOCOL Performed By: #### L 501.080 ####[facility] [address] [facility] [address] FINGERSTICK GLU 176 mg/dL High [facility]106 [facility] Comment on above: Result Comment: SHAMA GEMENT OF PATIENT CARE PER NURSING PROTOCOL Performed By: #### L 501.080 ####[facility] [address] [place], [address] FINGERSTICK GLU 163 mg/dL High [address] [place] [address] Comment on above: Result Comment: SHAMA GEMENT OF PATIENT CARE PER NURSING PROTOCOL Performed By: #### L 100.0100 #### [facility] [address] [facility] [address] Bilirubin directOrdered By: Alejandra Weiner on 07-07-2024 Bilirubin.direct [Mass/Vol] 0.27 mg/dL 0.00-0.30 [facility] Bilirubin, totalOrdered By: Alejandra Weiner on 07-07-2024 Bilirubin [Mass/Vol] 0.69 mg/dL 0.00-1.30 [facility] CBC W/Diff, Automatedon 06-22 Absolute Lymph 4.17 X10 3/uL Normal 0.83-4.51 [facility] Comment on above: Performed By: #### L 500.3400, L501.2300, L501.5200, L300.3900, L100.0100, L500.2500, L500.4050, L501.9520 ####[facility] [address] [place], [address] Absolute Neut 4.3 X10 3/uL Normal 2.0-7.7 [facility] Comment on above: Performed By: #### L 500.3400, L501.2300, L501.5200, L300.3900, L100.0100, L500.2500, L500.4050, L501.9520 ####[facility] [address] [place], [address] Basophils/100 WBC (Bld) 0.3 % Normal 0-1 [facility] Comment on above: Performed By: #### L 500.3400, L501.2300, L501.5200, L300.3900, L100.0100, L500.2500, L500.4050, L501.9520 ####[facility] [address] [place], [address] Eosinophils/100 WBC (Bld) 1.7 % Normal 0-5 [facility] Comment on above: Performed By: #### L 500.3400, L501.2300, L501.5200, L300.3900, L100.0100, L500.2500, L500.4050, L501.9520 ####[facility] [address] [place], [address] Erythrocyte distribution width (RBC) [Ratio] 14.0 % Normal 11.6-14.6 [facility] Comment on above: Performed By: #### L 500.3400, L501.2300, L501.5200, L300.3900, L100.0100, L500.2500, L500.4050, L501.9520 ####[facility] [address] [place], [address] Hematocrit (Bld) [Volume fraction] 47.3 % High 37-47 [facility] Comment on above: Performed By: #### L 500.3400, L501.2300, L501.5200, L300.3900, L100.0100, L500.2500, L500.4050, L501.9520 ####[facility] [address] [place], [address] Hemoglobin (Bld) [Mass/Vol] 16.1 g/dL High 12.0-15.0 [facility] Comment on above: Performed By: #### L 500.3400, L501.2300, L501.5200, L300.3900, L100.0100, L500.2500, L500.4050, L501.9520 ####[facility] [address] [place], [address] IG% 0.300 Normal 0.0-0.9 [facility] Comment on above: Result Comment: IG% - Immature Granulocytes (promyelocytes, myelocytes and metamyelocytes) > 1% indicates that a LEFT SHIFT is Present. Performed By: #### L 500.3400, L501.2300, L501.5200, L300.3900, L100.0100, L500.2500, L500.4050, L501.9520 ####[facility] [address] [place], [address] Lymphocytes/100 WBC (Bld) 43.3 % High 19-41 [facility] Comment on above: Performed By: #### L 500.3400, L501.2300, L501.5200, L300.3900, L100.0100, L500.2500, L500.4050, L501.9520 ####[facility] [address] [place], [address] MCH (RBC) [Entitic mass] 28.4 pg Normal 27.0-32.0 [facility] Comment on above: Performed By: #### L 500.3400, L501.2300, L501.5200, L300.3900, L100.0100, L500.2500, L500.4050, L501.9520 ####[facility] [address] [place], [address] MCHC (RBC) [Mass/Vol] 34.0 g/dL Normal 32-36 [facility] Comment on above: Performed By: #### L 500.3400, L501.2300, L501.5200, L300.3900, L100.0100, L500.2500, L500.4050, L501.9520 ####[facility] [address] [place], [address] MCV (RBC) [Entitic vol] 83.4 fL Normal 81-99 [facility] Comment on above: Performed By: #### L 500.3400, L501.2300, L501.5200, L300.3900, L100.0100, L500.2500, L500.4050, L501.9520 ####[facility] [address] [place], [address] Monocytes/100 WBC (Bld) 9.6 % Normal 0-10 [facility] Comment on above: Performed By: #### L 500.3400, L501.2300, L501.5200, L300.3900, L100.0100, L500.2500, L500.4050, L501.9520 ####[facility] [address] [place], [address] Neutrophils/100 WBC (Bld) 44.8 % Low 47-70 [facility] Comment on above: Performed By: #### L 500.3400, L501.2300, L501.5200, L300.3900, L100.0100, L500.2500, L500.4050, L501.9520 ####[facility] [address] [place], [address] Nucleated RBC (Bld) [#/Vol] 0 10*3/uL Normal 0-5 [facility] Comment on above: Performed By: #### L 500.3400, L501.2300, L501.5200, L300.3900, L100.0100, L500.2500, L500.4050, L501.9520 ####[facility] [address] [place], [address] Platelet mean volume (Bld) [Entitic vol] 11.1 fL Normal 6.2-12.0 [facility] Comment on above: Performed By: #### L 500.3400, L501.2300, L501.5200, L300.3900, L100.0100, L500.2500, L500.4050, L501.9520 ####[facility] [address] [place], [address] Platelets (Bld) [#/Vol] 289 10*3/uL Normal 150-450 [facility] Comment on above: Performed By: #### L 500.3400, L501.2300, L501.5200, L300.3900, L100.0100, L500.2500, L500.4050, L501.9520 ####[facility] [address] [place], [address] RBC (Bld) [#/Vol] 5.67 10*6/uL High 4.2-5.4 [facility] Comment on above: Performed By: #### L 500.3400, L501.2300, L501.5200, L300.3900, L100.0100, L500.2500, L500.4050, L501.9520 ####[facility] [address] [place], [address] RDW SD 42.4 fl Normal 35.1-43.9 [facility] Comment on above: Performed By: #### L 500.3400, L501.2300, L501.5200, L300.3900, L100.0100, L500.2500, L500.4050, L501.9520 ####[facility] [address] [place], [address] WBC (Bld) [#/Vol] 9.6 10*3/uL Normal 4.4-11.0 [facility] Comment on above: Performed By: #### L 500.3400, L501.2300, L501.5200, L300.3900, L100.0100, L500.2500, L500.4050, L501.9520 ####[facility] [address] [place], [address] Comprehensive Metabolic Prof ilon 07-07-2024 Albumin/Globulin [Mass ratio] 1.1 {ratio} Normal 0.9-2.4 [facility] Comment on above: Performed By: #### L 100.0100 #### [facility] [address] [place], [address] ENTERIC PATHOGEN PANEL STOOL on 07-07-2024 EP [...] been changed. 07/08/24 0707 by DEVON Alexander [facility] Comment on above: Performed By: #### M 100.637 ####[facility] [address] [place], [address] Free T3on 07-07-2024 Free T3 [Mass/Vol] 4.1 pg/mL High 2.18-3.98 [facility] Comment on above: Performed By: #### L 501.6901, L500.4050 #### [facility] [address] [place], [place], [address] Gl[facility] at [facility] deOrdered By: Cate Sargent on 07-07-2024 Glucose [Mass/Vol] 174 mg/dL High 74-106 [facility] Comment on above: MANAGEMENT OF PATIEN T CARE PER NURSING PROTOCOL H AND P Exam - Hospitaliston 07-07-2024 H&P Exam - Hospitalist [facility] Medical Records Department [address] [place] [address] H P Exam - Hospitalist 07/07/24 0007 MR#: [id number] Acct: [id number] Name: LIGIA RIVAS Rep #: [id number] : 1960 63 From: Alejandra Weiner MD PCP: Dr. Pancho Tran MD Status:ADM YECENIA Location: [place] [address] HPI - General General Date of Admission: [...] INR Coag (Bld) [Relative time] 1.1 {INR} [facility] - Chemistry and C hemistry - challengeOrdered By: Alejandra Weiner on 07-07-2024 AST [Catalytic activity/Vol] 23 U/L <32 [facility] Liver Profileon 07-07-2024 Albumin [Mass/Vol] 3.8 g/dL Normal 3.4-4.8 [facility] Comment on above: Performed By: #### L 100.0100 #### [facility] [address] [place], [address] ALK PHOS 112 U/L High 35-104 [facility] Comment on above: Performed By: #### L 100.0100 #### [facility] [address] [place], [address] ALT [Catalytic activity/Vol] 26 U/L Normal <=34 [facility] Comment on above: Performed By: #### L 100.0100 #### [facility] [address] [place], [address] AST [Catalytic activity/Vol] 23 U/L Normal <=31 [facility] Comment on above: Performed By: #### L 100.0100 #### [facility] [address] [place], [address] Bilirubin [Mass/Vol] 0.69 mg/dL Normal 0.00-1.30 [facility] Comment on above: Performed By: #### L 100.0100 #### [facility] [address] [place], [address] Bilirubin.direct [Mass/Vol] 0.27 mg/dL Normal 0.00-0.30 [facility] Comment on above: Performed By: #### L 100.0100 #### [facility] [address] [place], [address] Globulin (S) [Mass/Vol] 3.5 g/dL Normal 2.2-4.2 [facility] Comment on above: Performed By: #### L 100.0100 #### [facility] [address] [place], [address] T PROT 7.3 g/dL Normal 5.9-8.4 [facility] Comment on above: Performed By: #### L 100.0100 #### [facility] [address] [place], [address] Magnesiumon 07-07-2024 Magnesium [Mass/Vol] 2.2 mg/dL Normal 1.5-2.2 [facility] Comment on above: Performed By: #### L 100.0100 #### [facility] [address] [place], [address] Magnesium measurement (mass/ volume)Ordered By: Alejandra Weiner on 07-07-2024 Magnesium (Unsp spec) [Mass/Vol] 2.2 mg/dL 1.5-2.2 [facility] Phosphoruson 07-07-2024 Phosphate [Mass/Vol] 3.4 mg/dL Normal 2.7-4.5 [facility] Comment on above: Performed By: #### L 100.0100 #### [facility] [address] [place], [address] Prothrombin Time w/INRon INR Coag (PPP) [Relative time] 1.1 {INR} Normal [facility] Comment on above: Performed By: #### L 500.3400, L501.2300, L501.5200, L300.3900, L100.0100, L500.2500, L500.4050, L501.9520 ####[facility] [address] [place], [address] PT Coag (PPP) [Time] 14.4 s Normal 11.7-14.9 [facility] Comment on above: Performed By: #### L 500.3400, L501.2300, L501.5200, L300.3900, L100.0100, L500.2500, L500.4050, L501.9520 ####[facility] [address] [place], [address] Prothrombin timeOrdered By: Alejandra Weiner on 07-07-2024 PT Coag (PPP) [Time] 14.4 s 11.7-14.9 [facility] Serum globulin measurementOr dered By: Alejandra Weiner on 07-07-2024 Globulin (S) [Mass/Vol] 3.5 g/dL 2.2-4.2 [facility] Serum or plasma alanine webber otransferase (ALT) measurementOrdered By: Alejandra Weiner on 07-07-2024 ALT [Catalytic activity/Vol] 26 U/L <35 [facility] Serum or plasma albumin ricky urement (mass/volume)Ordered By: Alejandra Weiner on 07-07-2024 Albumin [Mass/Vol] 3.8 g/dL 3.4-4.8 [facility] Serum or plasma albumin/glob ulin mass ratioOrdered By: Alejandra Weiner on 07-07-2024 Albumin/Globulin [Mass ratio] 1.1 {ratio} 0.9-2.4 [facility] Serum or plasma alkaline usman sphatase measurementOrdered By: Alejandra Weiner on 07-07-2024 ALP [Catalytic activity/Vol] 112 U/L High 35-104 [facility] TSH DL <= 0.005 mIU/L QnOrde red By: Alejandra Weiner on 07-07-2024 TSH Qn 0.617 uIU/mL 0.300-4.200 [facility] Thyroid Stim Hormone (TSH)on 07-07-2024 TSH 0.617 uIU/mL Normal 0.300-4.200 [facility] Comment on above: Performed By: #### L 100.0100 #### [facility] [address] [place], [place], [address] Total proteinOrdered By: Real Weiner on 07-07-2024 Protein [Mass/Vol] 7.3 g/dL 5.9-8.4 [facility] 12 Lead EKGon 07-06-2024 12 Lead EKG [facility] Cardiovascular Services [address] [place] [address] 12 Lead EKG 07/06/242044 MR#: [id number] Acct: [id number] Name: LIGIA RIVAS Rep #: [id number] : 1960 63 From: Tim Carballo MD Attending Dr: Dr. Cate Sargent MD Status: DI S IN Ordering Dr: Mahendra Devine MD Date: 07/06/24 Location: [facility] Sex: F UTD Admitted: 07/07/24 [...] ECG Confirmed by ELIZABETH KESSLER, TIM ([id number]), supervising editor trailer RAQUEL NEELY ([id number]) on 07/10/2024 8:42:59 AM Referred By: Confirmed By: TIM CARBALLO MD 07/10/24 0843 Date Tim Carballo MD CC: Dr. Mahendra Devine MD; Dr. Pancho Tran MD; Dr. Cate Sargent MD Signed Normal [facility] Abdomen/Pelvis W IV Cont ONL Yon 07-06-2024 Abdomen/Pelvis W IV Cont ONLY [facility] Imaging Services [address] [place] [address] Abdomen/Pelvis W IV Cont ONLY MR#: [id number] Acct: [id number] Name: LIGIA RIVAS Rep #: [id number] : 1960 F 63 From: Leonardo Nava MD PCP: Dr. Pancho Tran MD Status: REG Study: Abdomen/Pelvis W IV Cont ONLY Date of Exam: Exam# [id number] Ordering Dr: Mahendra Devine MD PROCEDURE: ABDOMEN/PELVIS [...] diverticulosis. 3. Multivessel coronary calcifications. Reading Location: [facility] CC: Dr. Mahendra Devine MD; Dr. Pancho Tran MD Vendor Representatives: Signed Normal [facility] Absolute lymphocyte countOrd ered By: Mahendra Devine on 07-06-2024 Lymphocytes Auto (Unsp spec) [#/Vol] 3.61 10*3/uL 0.83-4.51 [facility] Absolute lymphocyte countOrd ered By: Manan Escobar on 07-06-2024 Lymphocytes Auto (Unsp spec) [#/Vol] 2.88 10*3/uL 0.83-4.51 [facility] Absolute neutrophil countOrd ered By: Mahendra Devine on 07-06-2024 Neutrophils (Bld) [#/Vol] 6.3 10*3/uL 2.0-7.7 [facility] Absolute neutrophil countOrd ered By: Manan Escobar on 07-06-2024 Neutrophils (Bld) [#/Vol] 6.1 10*3/uL 2.0-7.7 [facility] Anion gap in Serum or Plasma Ordered By: Mahendra Devine on 07-06-2024 Anion gap [Moles/Vol] 17 mmol/L [facility] Anion gap in Serum or Plasma Ordered By: Caitlin Tilley on 07-06-2024 Anion gap [Moles/Vol] 19 mmol/L [facility] Automated lymphocyte count a s percentage of total leukocytesOrdered By: Mahendra Devine on 07-06-2024 Lymphocytes/100 WBC Auto (Unsp spec) 32.3 % [facility] Automated lymphocyte count a s percentage of total leukocytesOrdered By: Manan Escobar on 07-06-2024 Lymphocytes/100 WBC Auto (Unsp spec) 28.7 % [facility] BUN/creatinine ratioOrdered By: Mahendra Devine on 07-06-2024 Urea nitrogen/Creatinine [Mass ratio] 40.9 mg/mg High 12-11 [facility] BUN/creatinine ratioOrdered By: Caitlin Tilley on 07-06-2024 Urea nitrogen/Creatinine [Mass ratio] 40.0 mg/mg [facility] 12-11 [facility] Basophil percentageOrdered B y: Mahendra Devine on 07-06-2024 Basophils/100 WBC (Bld) 0.4 % 0-1 [facility] Basophil percentageOrdered B y: Manan Escobar on 07-06-2024 Basophils/100 WBC (Bld) 0.5 % 0-1 [facility] Bedside Glucoseon 07-06-2024 FINGERSTICK GLU 134 mg/dL High 74-106 [facility] Comment on above: Result Comment: SHAMA GEMENT OF PATIENT CARE PER NURSING PROTOCOL Performed By: #### L 9000.0810 #### [facility] [address] [place], [address] FINGERSTICK GLU 156 mg/dL High 74-106 [facility] Comment on above: Result Comment: SHAMA GEMENT OF PATIENT CARE PER NURSING PROTOCOL Performed By: #### L 501.6901, L500.4050 #### [facility] [address] [place], [address] FINGERSTICK GLU 189 mg/dL High 74-106 [facility] Comment on above: Result Comment: SHAMA GEMENT OF PATIENT CARE PER NURSING PROTOCOL Performed By: #### L 501.6901, L500.4050 #### [facility] [address] [place], [address] Beta-Hydroxbytyrateon 2024 BETA-HYDROXYBUT 0.3 mmol/L Normal 0.0-0.3 [facility] Comment on above: Performed By: #### L 501.6901, L500.4050 #### [facility] [address] [place], [address] Beta-hydroxybutyrateOrdered By: Mahendra Devine on 07-06-2024 Beta hydroxybutyrate [Mass/Vol] 0.3 mmol/L 0.0-0.3 [facility] Bilirubin Test strip Ql (U)O rdered By: Mahendra Devine on 07-06-2024 Bilirubin Ql (U) 1 mg/dL High Negative [facility] Comment on above: COLOR OF URINE MAY A FFECT DIPSTICK RESULTS. Bilirubin, totalOrdered By: Mahendra Devine on 07-06-2024 Bilirubin [Mass/Vol] 0.66 mg/dL 0.00-1.30 [facility] Bilirubin, totalOrdered By: Caitlin Tilley on 07-06-2024 Bilirubin [Mass/Vol] 0.56 mg/dL 0.00-1.30 [facility] CBC W/Diff, Automatedon 05-02 26-2024 Absolute Lymph 3.61 X10 3/uL Normal 0.83-4.51 [facility] Comment on above: Performed By: #### L 501.6901, L500.4050 #### [facility] [address] [place], [address] Absolute Neut 6.3 X10 3/uL Normal 2.0-7.7 [facility] Comment on above: Performed By: #### L 501.6901, L500.4050 #### [facility] [address] [place], [address] Basophils/100 WBC (Bld) 0.4 % Normal 0-1 [facility] Comment on above: Performed By: #### L 501.6901, L500.4050 #### [facility] [address] [place], [address] Eosinophils/100 WBC (Bld) 0.7 % Normal 0-5 [facility] Comment on above: Performed By: #### L 501.6901, L500.4050 #### [facility] [address] [place], [address] Erythrocyte distribution width (RBC) [Ratio] 14.2 % Normal 11.6-14.6 [facility] Comment on above: Performed By: #### L 501.6901, L500.4050 #### [facility] [address] [place], [address] Hematocrit (Bld) [Volume fraction] 52.2 % High 37-47 [facility] Comment on above: Performed By: #### L 501.6901, L500.4050 #### [facility] [address] [place], [address] Hemoglobin (Bld) [Mass/Vol] 17.9 g/dL High 12.0-15.0 [facility] Comment on above: Performed By: #### L 501.6901, L500.4050 #### [facility] [address] [place], [address] IG% 0.400 Normal 0.0-0.9 [facility] Comment on above: Result Comment: IG% - Immature Granulocytes (promyelocytes, myelocytes and metamyelocytes) > 1% indicates that a LEFT SHIFT is Present. Performed By: #### L 501.6901, L500.4050 #### [facility] [address] [place], [address] Lymphocytes/100 WBC (Bld) 32.3 % Normal 19-41 [facility] Comment on above: Performed By: #### L 501.6901, L500.4050 #### [facility] [address] [place], [address] MCH (RBC) [Entitic mass] 28.5 pg Normal 27.0-32.0 [facility] Comment on above: Performed By: #### L 501.6901, L500.4050 #### [facility] [address] [place], [address] MCHC (RBC) [Mass/Vol] 34.3 g/dL Normal 32-36 [facility] Comment on above: Performed By: #### L 501.6901, L500.4050 #### [facility] [address] [place], [address] MCV (RBC) [Entitic vol] 83.0 fL Normal 81-99 [facility] Comment on above: Performed By: #### L 501.6901, L500.4050 #### [facility] [address] [place], [address] Monocytes/100 WBC (Bld) 9.9 % Normal 0-10 [facility] Comment on above: Performed By: #### L 501.6901, L500.4050 #### [facility] [address] [place], [address] Neutrophils/100 WBC (Bld) 56.3 % Normal 47-70 [facility] Comment on above: Performed By: #### L 501.6901, L500.4050 #### [facility] [address] [place], [address] Nucleated RBC (Bld) [#/Vol] 0 10*3/uL Normal 0-5 [facility] Comment on above: Performed By: #### L 501.6901, L500.4050 #### [facility] [address] [place], [address] Platelet mean volume (Bld) [Entitic vol] 11.1 fL Normal 6.2-12.0 [facility] Comment on above: Performed By: #### L 501.6901, L500.4050 #### [facility] [address] [place], [address] Platelets (Bld) [#/Vol] 325 10*3/uL Normal 150-450 [facility] Comment on above: Performed By: #### L 501.6901, L500.4050 #### [facility] [address] [place], [address] RBC (Bld) [#/Vol] 6.29 10*6/uL High 4.2-5.4 [facility] Comment on above: Performed By: #### L 501.6901, L500.4050 #### [facility] [address] [place], [address] RDW SD 42.5 fl Normal 35.1-43.9 [facility] Comment on above: Performed By: #### L 501.6901, L500.4050 #### [facility] [address] [place], [address] WBC (Bld) [#/Vol] 11.2 10*3/uL High 4.4-11.0 [facility] Comment on above: Performed By: #### L 501.6901, L500.4050 #### [facility] [address] [place], [address] Absolute Lymph 2.88 X10 3/uL Normal 0.83-4.51 [facility] Comment on above: Performed By: #### L 100.0100 #### [facility] [address] [place], [address] Absolute Neut 6.1 X10 3/uL Normal 2.0-7.7 [facility] Comment on above: Performed By: #### L 100.0100 #### [facility] [address] [place], [address] Basophils/100 WBC (Bld) 0.5 % Normal 0-1 [facility] Comment on above: Performed By: #### L 100.0100 #### [facility] [address] [place], [address] Eosinophils/100 WBC (Bld) 0.4 % Normal 0-5 [facility] Comment on above: Performed By: #### L 100.0100 #### [facility] [address] [place], [address] Erythrocyte distribution width (RBC) [Ratio] 13.8 % Normal 11.6-14.6 [facility] Comment on above: Performed By: #### L 100.0100 #### [facility] [address] [place], [address] Hematocrit (Bld) [Volume fraction] 52.4 % High 37-47 [facility] Comment on above: Performed By: #### L 100.0100 #### [facility] [address] [place], [address] Hemoglobin (Bld) [Mass/Vol] 17.9 g/dL High 12.0-15.0 [facility] Comment on above: Performed By: #### L 100.0100 #### [facility] [address] [place], [address] IG% 0.400 Normal 0.0-0.9 [facility] Comment on above: Result Comment: IG% - Immature Granulocytes (promyelocytes, myelocytes and metamyelocytes) > 1% indicates that a LEFT SHIFT is Present. Performed By: #### L 100.0100 #### [facility] [address] [place], [address] Lymphocytes/100 WBC (Bld) 28.7 % Normal 19-41 [facility] Comment on above: Performed By: #### L 100.0100 #### [facility] [address] [place], [address] MCH (RBC) [Entitic mass] 28.6 pg Normal 27.0-32.0 [facility] Comment on above: Performed By: #### L 100.0100 #### [facility] [address] [place], [address] MCHC (RBC) [Mass/Vol] 34.2 g/dL Normal 32-36 [facility] Comment on above: Performed By: #### L 100.0100 #### [facility] [address] [place], [address] MCV (RBC) [Entitic vol] 83.7 fL Normal 81-99 [facility] Comment on above: Performed By: #### L 100.0100 #### [facility] [address] [place], [address] Monocytes/100 WBC (Bld) 9.5 % Normal 0-10 [facility] Comment on above: Performed By: #### L 100.0100 #### [facility] [address] [place], [address] Neutrophils/100 WBC (Bld) 60.5 % Normal 47-70 [facility] Comment on above: Performed By: #### L 100.0100 #### [facility] [address] [place], [address] Nucleated RBC (Bld) [#/Vol] 0 10*3/uL Normal 0-5 [facility] Comment on above: Performed By: #### L 100.0100 #### [facility] [address] [place], [address] Platelet mean volume (Bld) [Entitic vol] 11.2 fL Normal 6.2-12.0 [facility] Comment on above: Performed By: #### L 100.0100 #### [facility] [address] [place], [address] Platelets (Bld) [#/Vol] 335 10*3/uL Normal 150-450 [facility] Comment on above: Performed By: #### L 100.0100 #### [facility] [address] [place], [address] RBC (Bld) [#/Vol] 6.26 10*6/uL High 4.2-5.4 [facility] Comment on above: Performed By: #### L 100.0100 #### [facility] [address] [place], [address] RDW SD 42.2 fl Normal 35.1-43.9 [facility] Comment on above: Performed By: #### L 100.0100 #### [facility] [address] [place], [address] WBC (Bld) [#/Vol] 10.1 10*3/uL Normal 4.4-11.0 [facility] Comment on above: Performed By: #### L 100.0100 #### [facility] [address] [place], [place], [address] CO2 (BldV) [Moles/Vol]Ordere d By: Mahendra Devine on 07-06-2024 CO2 [Moles/Vol] 17 mmol/L Low 23-33 [facility] Calculated very low density lipoprotein (VLDL) cholesterol measurementOrdered By: Caitlin Tilley on 07-06-2024 Calculated very low density lipoprotein (VLDL) cholesterol measurement 27 mg/dL 5-40 [facility] Carbon dioxide, total [Moles /volume] in Central venous bloodOrdered By: Mahendra Devine on 07-06-2024 CO2 [Moles/Vol] 15.5 mmol/L Low 21.0-32.0 [facility] Carbon dioxide, total [Moles /volume] in Central venous bloodOrdered By: Caitlin Tilley on 07-06-2024 CO2 [Moles/Vol] 11.0 mmol/L Low 21.0-32.0 [facility] Chloride assayOrdered By: Juan Manuel Devine on 07-06-2024 Chloride [Moles/Vol] 100 mmol/L 98-108 [facility] Chloride assayOrdered By: Me glo Tilley on 07-06-2024 Chloride [Moles/Vol] 102 mmol/L 98-108 [facility] Comprehensive Metabolic Prof ilon 07-06-2024 Albumin [Mass/Vol] 4.5 g/dL Normal 3.4-4.8 [facility] Comment on above: Performed By: #### L 501.6901, L500.4050 #### [facility] [address] [place], [place], [address] Albumin/Globulin [Mass ratio] 1.0 {ratio} Normal 0.9-2.4 [facility] Comment on above: Performed By: #### L 501.6901, L500.4050 #### [facility] [address] [place], [place], [address] ALK PHOS 133 U/L High 35-104 [facility] Comment on above: Performed By: #### L 501.6901, L500.4050 #### [facility] [address] [place], [address] ALT [Catalytic activity/Vol] 34 U/L Normal <=34 [facility] Comment on above: Performed By: #### L 501.6901, L500.4050 #### [facility] [address] [place], [address] AST [Catalytic activity/Vol] 29 U/L Normal <=31 [facility] Comment on above: Performed By: #### L 501.6901, L500.4050 #### [facility] [address] [place], [address] Bilirubin [Mass/Vol] 0.66 mg/dL Normal 0.00-1.30 [facility] Comment on above: Performed By: #### L 501.6901, L500.4050 #### [facility] [address] [place], [address] BUN/CRE 40.9 RATIO High 10-20 [facility] Comment on above: Performed By: #### L 501.6901, L500.4050 #### [facility] [address] [place], [address] Calcium [Mass/Vol] 9.3 mg/dL Normal 7.6-11.0 [facility] Comment on above: Performed By: #### L 501.6901, L500.4050 #### [facility] [address] [place], [address] Chloride [Moles/Vol] 100 mmol/L Normal 98-108 [facility] Comment on above: Performed By: #### L 501.6901, L500.4050 #### [facility] [address] [place], [address] CO2 [Moles/Vol] 15.5 mmol/L Low 21.0-32.0 [facility] Comment on above: Performed By: #### L 501.6901, L500.4050 #### [facility] [address] [place], [address] Creatinine [Mass/Vol] 1.52 mg/dL High 0.70-1.20 [facility] Comment on above: Performed By: #### L 501.6901, L500.4050 #### [facility] [address] [place], [address] ECRCL 49.55 ml/min Low 50-250 [facility] Comment on above: Performed By: #### L 501.6901, L500.4050 #### [facility] [address] [place], [address] GAP 17 High 5-15 [facility] Comment on above: Performed By: #### L 501.6901, L500.4050 #### [facility] [address] [place], [address] GFR/1.73 sq M.predicted among non-blacks MDRD (S/P/Bld) [Vol rate/Area] 39 mL/min/{1.73_m2} Low >60 [facility] Comment on above: Result Comment: mL/m in/1.73m2 CKD-EPI Creatinine Equation (2020) Performed By: #### L 501.6901, L500.4050 #### [facility] [address] [place], [address] Globulin (S) [Mass/Vol] 4.3 g/dL High 2.2-4.2 [facility] Comment on above: Performed By: #### L 501.6901, L500.4050 #### [facility] [address] [place], [address] Glucose [Mass/Vol] 186 mg/dL High 70-99 [facility] Comment on above: Performed By: #### L 501.6901, L500.4050 #### [facility] [address] [place], [address] Potassium [Moles/Vol] 3.4 mmol/L Normal 3.3-5.1 [facility] Comment on above: Performed By: #### L 501.6901, L500.4050 #### [facility] [address] [place], [address] Sodium [Moles/Vol] 132 mmol/L Low 133-145 [facility] Comment on above: Performed By: #### L 501.6901, L500.4050 #### [facility] [address] [place], [address] T PROT 8.8 g/dL High 5.9-8.4 [facility] Comment on above: Performed By: #### L 501.6901, L500.4050 #### [facility] [address] [place], [address] Urea nitrogen [Mass/Vol] 62 mg/dL High 4-19 [facility] Comment on above: Performed By: #### L 501.6901, L500.4050 #### [facility] [address] [place], [address] Albumin [Mass/Vol] 4.5 g/dL Normal 3.4-4.8 [facility] Comment on above: Performed By: #### L 100.0100 #### [facility] [address] [place], [address] Albumin/Globulin [Mass ratio] 1.0 {ratio} Normal 0.9-2.4 [facility] Comment on above: Performed By: #### L 100.0100 #### [facility] [address] [place], [address] ALK PHOS 133 U/L High 35-104 [facility] Comment on above: Performed By: #### L 100.0100 #### [facility] [address] [place], [address] ALT [Catalytic activity/Vol] 35 U/L Normal <=34 [facility] Comment on above: Performed By: #### L 100.0100 #### [facility] [address] [place], [address] AST [Catalytic activity/Vol] 28 U/L Normal <=31 [facility] Comment on above: Performed By: #### L 100.0100 #### [facility] [address] [place], [address] Bilirubin [Mass/Vol] 0.56 mg/dL Normal 0.00-1.30 [facility] Comment on above: Performed By: #### L 100.0100 #### [facility] [address] [place], [address] BUN/CRE 40.0 RATIO High 10-20 [facility] Comment on above: Performed By: #### L 100.0100 #### [facility] [address] [place], [address] Calcium [Mass/Vol] 9.2 mg/dL Normal 7.6-11.0 [facility] Comment on above: Performed By: #### L 100.0100 #### [facility] [address] [place], [address] Chloride [Moles/Vol] 102 mmol/L Normal 98-108 [facility] Comment on above: Performed By: #### L 100.0100 #### [facility] [address] [place], [address] CO2 [Moles/Vol] 11.0 mmol/L Low 21.0-32.0 [facility] Comment on above: Performed By: #### L 100.0100 #### [facility] [address] [place], [address] Creatinine [Mass/Vol] 1.41 mg/dL High 0.70-1.20 [facility] Comment on above: Performed By: #### L 100.0100 #### [facility] [address] [place], [address] GAP 19 High 5-15 [facility] Comment on above: Performed By: #### L 100.0100 #### [facility] [address] [place], [address] GFR/1.73 sq M.predicted among non-blacks MDRD (S/P/Bld) [Vol rate/Area] 42 mL/min/{1.73_m2} Low >60 [facility] Comment on above: Result Comment: mL/m in/1.73m2 CKD-EPI Creatinine Equation (2020) Performed By: #### L 100.0100 #### [facility] [address] [place], [address] Globulin (S) [Mass/Vol] 4.3 g/dL High 2.2-4.2 [facility] Comment on above: Performed By: #### L 100.0100 #### [facility] [address] [place], [address] Glucose [Mass/Vol] 185 mg/dL High 70-99 [facility] Comment on above: Performed By: #### L 100.0100 #### [facility] [address] [place], [address] Potassium [Moles/Vol] 3.3 mmol/L Normal 3.3-5.1 [facility] Comment on above: Performed By: #### L 100.0100 #### [facility] [address] [place], [address] Sodium [Moles/Vol] 132 mmol/L Low 133-145 [facility] Comment on above: Performed By: #### L 100.0100 #### [facility] [address] [place], [address] T PROT 8.8 g/dL High 5.9-8.4 [facility] Comment on above: Performed By: #### L 100.0100 #### [facility] [address] [place], [address] Urea nitrogen [Mass/Vol] 56 mg/dL High 4-19 [facility] Comment on above: Performed By: #### L 100.0100 #### [facility] [address] [place], [address] Emergency Department Summary on 07-06-2024 Emergency Department Summary [facility] Medical Records Department [address] [place] [address] Emergency Department Summary 07/06/24 MR#: [id number] Acct: [id number] Name: LIGIA RIVAS Rep #: [id number] : 1960 63 From: Mahendra Devine MD [...] fatigued with low energy. She saw her electrical assistant today, and had laboratory work drawn. She states that they are trying to wean her off Ozempic and insulin. She states that her blood sugars have been controlled recently. She does have type 2 diabetes, but was told that there is concerned that she has metabolic acidosis. This was based off the laboratory work that was drawn today. [facility] Medical History Anxiety and depression Health care [...] surgery Social (more content not included)... Normal [facility] Endocrinology Visit Reporton 07-06-2024 Endocrinology Visit Report [facility] [address] [place] [address] OFFICE VISIT Date of Service: 07/06/24 MR#: [id number] Acct: [id number] Name: LIGIA RIVAS Rep #: [id number] : 1960 Provider: ARCADIO dodd Age/Sex: 63/F [place] [facility]: Signed Intake Vital Signs 04/13/24 09:43 [...] 3 current occupational status: employed current occupation: [employer] living pets and animals: Yes pets and [...] activity do (more content not included)... Normal [facility] Eosinophil percentageOrdered By: Mahendra Devine on 07-06-2024 Eosinophils/100 WBC (Bld) 0.7 % 0-5 [facility] Eosinophil percentageOrdered By: Manan Escobar on 07-06-2024 Eosinophils/100 WBC (Bld) 0.4 % 0-5 [facility] Erythrocyte distribution wid th ratioOrdered By: Mahendra Devine on 07-06-2024 Erythrocyte distribution width (RBC) [Ratio] 14.2 % 11.6-14.6 [facility] Erythrocyte distribution wid th ratioOrdered By: Manan Escobar on 07-06-2024 Erythrocyte distribution width (RBC) [Ratio] 13.8 % 11.6-14.6 [facility] Erythrocyte distribution wid th standard deviationOrdered By: Mahendra Devine on 07-06-2024 Erythrocyte distribution width (RBC) [Ratio] 42.5 fl 35.1-43.9 [facility] Erythrocyte distribution wid th standard deviationOrdered By: Manan Escobar on 07-06-2024 Erythrocyte distribution width (RBC) [Ratio] 42.2 fl 35.1-43.9 [facility] Free [id number] By: Alejandra Weiner on 07-06-2024 Free T3 [Mass/Vol] 4.1 pg/mL High 2.18-3.98 [facility] Free T3on 07-06-2024 Free T3 [Mass/Vol] 3.8 pg/mL Normal 2.18-3.98 [facility] Comment on above: Performed By: #### L 501.6901, L500.4050 #### [facility] [address] [place], [place] [address], [address] Free [id number] By: Sury on 07-06-2024 Free T3 [Mass/Vol] 3.8 pg/mL 2.18-3.98 [facility] Glomerular filtration rate ( GFR) estimation/1.73 sq m using serum, plasma, or whole bOrdered By: Mahendra Devine on 07-06-2024 GFR/1.73 sq M.predicted among non-blacks MDRD (S/P/Bld) [Vol rate/Area] 39 mL/min/{1.73_m2} Low >60 [facility] Comment on above: mL/min/1.73m2 CKD-EP I Creatinine Equation (2020) Glomerular filtration rate ( GFR) estimation/1.73 sq m using serum, plasma, or whole bOrdered By: Caitlin Tilley on 07-06-2024 GFR/1.73 sq M.predicted among non-blacks MDRD (S/P/Bld) [Vol rate/Area] 42 mL/min/{1.73_m2} Low >60 [facility] Comment on above: mL/min/1.73m2 CKD-EP I Creatinine Equation (2020) [facility] deOrdered By: Alejandra Weiner on 07-06-2024 Glucose [Mass/Vol] 134 mg/dL High 74-106 [facility] Comment on above: MANAGEMENT OF PATIEN T CARE PER NURSING PROTOCOL Hematocrit Auto (Bld) [Volum e fraction]Ordered By: Mahendra Devine on 07-06-2024 Hematocrit (Bld) [Volume fraction] 52.2 % High 37-47 [facility] Hematocrit Auto (Bld) [Volum e fraction]Ordered By: Manan Escobar on 07-06-2024 Hematocrit (Bld) [Volume fraction] 52.4 % High 37-47 [facility] Hemoglobin measurementOrdere d By: Mahendra Devine on 07-06-2024 Hemoglobin (Bld) [Mass/Vol] 17.9 g/dL High 12.0-15.0 [facility] Hemoglobin measurementOrdere d By: Manan Escobar on 07-06-2024 Hemoglobin (Bld) [Mass/Vol] 17.9 g/dL High 12.0-15.0 [facility] Hyaline casts LM.LPF (Urine sed) [#/Area]Ordered By: Mahendra Devine on 07-06-2024 Hyaline casts (Urine sed) [#/Area] 5 /[LPF] 0-5 [facility] Immature granulocytes/100 WB C Auto (Bld)Ordered By: Mahendra Devine on 07-06-2024 Immature granulocytes/100 WBC (Bld) 0.400 % 0.0-0.9 [facility] Comment on above: IG% - Immature Granu locytes (promyelocytes, myelocytes and metamyelocytes) > 1% indicates that a LEFT SHIFT is Present. Immature granulocytes/100 WB C Auto (Bld)Ordered By: Manan Escobar on 07-06-2024 Immature granulocytes/100 WBC (Bld) 0.400 % 0.0-0.9 [facility] Comment on above: IG% - Immature Granu locytes (promyelocytes, myelocytes and metamyelocytes) > 1% indicates that a LEFT SHIFT is Present. Internal Medicine Office Vis iton 07-06-2024 Internal Medicine Office Visit [facility] [place] [address] OFFICE VISIT Date of Service: 07/06/24 MR#: [id number] Acct: [id number] Name: LIGIA RIVAS Rep #: [id number] : 1960 Provider: BEVERLY Barajas Age/Sex: 63/F Location: [facility] Status: Signed Intake Vital Signs 05/24/24 12:15 [...] Reasons: ACUTE DIARRHEA AND VOMITING SINCE WEDNESDAY 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 Is patient in pain?: Yes [...] and fasting sugars are 150's. [facility] Medical History Anxiety and depression Health care [...] using laser (more content not included)... Normal [facility] Ketones Test strip Ql (U)Ord ered By: Mahendra Devine on 07-06-2024 Ketones Ql (U) Negative Negative [facility] LDL calc ser/plasOrdered By: Caitlin Tilley on 07-06-2024 Cholesterol in LDL [Mass/Vol] 51 mg/dL [facility] Comment on above: Pmlkzxfman=427-991 m g/dL & Higher Qgdh=618 mg/dL or greater Laboratory - Chemistry and C hemistry - challengeOrdered By: Mahendra Devine on 07-06-2024 AST [Catalytic activity/Vol] 29 U/L <32 [facility] Laboratory - Chemistry and C hemistry - challengeOrdered By: Caitlin Tilley on 07-06-2024 AST [Catalytic activity/Vol] 28 U/L <32 [facility] - Hematology and Cell countsOrdered By: Caitlin Tilley on 07-06-2024 HbA1c (Bld) [Mass fraction] 7.1 % High 4.2-6.3 [facility] Lipid Profileon 07-06-2024 CHOL:HDL 4.46 Normal [facility] Comment on above: Performed By: #### L 100.0100 #### [facility] [address] [place], [place], [id number] (078) Cholesterol [Mass/Vol] 100 mg/dL Normal <=200 [facility] Comment on above: Result Comment: Chol esterol level, Desirable <200 mg/dL Borderline high cholesterol 200-239 mg/dL High cholesterol >=240 mg/dL Recommendations of the NCEP Adult Treatment Panel for the following risk-cutoff thresholds for the [place] population. Performed By: #### L 100.0100 #### [facility] [address] [place], [address] Cholesterol in HDL [Mass/Vol] 22 mg/dL Low [facility] Comment on above: Result Comment: Janeth onal Cholesterol Education Program (NCEP) guidelines: <40 mg/dL: Low HDL-cholesterol (major risk factor for CHD) >= 60 mg/dL: High HDL-cholesterol (negative risk factor for CHD) HDL-cholesterol is affected by a number of factors, e.g. smoking, exercise, hormones, sex and age. Performed By: #### L 100.0100 #### [facility] [address] [place], [address] Cholesterol in LDL [Mass/Vol] 51 mg/dL Normal [facility] Comment on above: Result Comment: Bord jkqgnx=102-090 mg/dL Higher Avtp=647 mg/dL or greater Performed By: #### L 100.0100 #### [facility] [address] [place], [address] Cholesterol in VLDL [Mass/Vol] 27 mg/dL Normal 5-40 [facility] Comment on above: Performed By: #### L 100.0100 #### [facility] [address] [place], [address] Triglyceride [Mass/Vol] 133 mg/dL Normal [facility] Comment on above: Result Comment: The drugs N-Acetylcysteine and Metamizole may falsely depress this assay. Normal range: <150 mg/dL Borderline High: 150-199 mg/dL High: 200-499 mg/dL Very High: >500 mg/dL Performed By: #### L 100.0100 #### [facility] [address] [place], [address] MCV (mean corpuscular volume ) determinationOrdered By: Mahendra Devine on 07-06-2024 MCV (RBC) [Entitic vol] 83.0 fL 81-99 [facility] MCV (mean corpuscular volume ) determinationOrdered By: Manan Escobar on 07-06-2024 MCV (RBC) [Entitic vol] 83.7 fL 81-99 [facility] Mean corpuscular hemoglobin (MCH) determinationOrdered By: Mahendra Devine on 07-06-2024 MCH (RBC) [Entitic mass] 28.5 pg 27.0-32.0 [facility] Mean corpuscular hemoglobin (MCH) determinationOrdered By: Manan Escobar on 07-06-2024 MCH (RBC) [Entitic mass] 28.6 pg 27.0-32.0 [facility] Mean corpuscular hemoglobin concentration (MCHC) determinationOrdered By: Mahendra Devine on 07-06-2024 MCHC (RBC) [Mass/Vol] 34.3 g/dL 32-36 [facility] Mean corpuscular hemoglobin concentration (MCHC) determinationOrdered By: Manan Escobar on 07-06-2024 MCHC (RBC) [Mass/Vol] 34.2 g/dL 32-36 [facility] Mean platelet volume determi nationOrdered By: Mahendra Devine on 07-06-2024 Platelet mean volume (Bld) [Entitic vol] 11.1 fL 6.2-12.0 [facility] Mean platelet volume determi nationOrdered By: Manan Escobar on 07-06-2024 Platelet mean volume (Bld) [Entitic vol] 11.2 fL 6.2-12.0 [facility] Microscopic analysis of urin e for red blood cells (RBC)Ordered By: Mahendra Devine on 07-06-2024 Microscopic analysis of urine for red blood cells (RBC) 0 SEEN /hpf 0-5 [facility] Monocyte percentageOrdered B y: Mahendra Devine on 07-06-2024 Monocytes/100 WBC (Bld) 9.9 % 0-10 [facility] Monocyte percentageOrdered B y: Manan Escobar on 07-06-2024 Monocytes/100 WBC (Bld) 9.5 % 0-10 [facility] Mucus LM Ql (Urine sed)Order ed By: Mahendra Devine on 07-06-2024 Mucus Ql (Urine sed) 0 SEEN /hpf [facility] Neutrophil percentageOrdered By: Mahendra Devine on 07-06-2024 Neutrophils/100 WBC (Bld) 56.3 % 47-70 [facility] Neutrophil percentageOrdered By: Manan Escobar on 07-06-2024 Neutrophils/100 WBC (Bld) 60.5 % 47-70 [facility] Nitrite Test strip Ql (U)Ord ered By: Mahendra Devine on 07-06-2024 Nitrite Ql (U) Negative Negative [facility] No Panel InformationOrdered By: Mahendar Devine on 07-06-2024 Blood Gas Sample Site Not entered [facility] Blood Gas Specimen Type CARLOTA [facility] Oxygen Delivery Device Not entered [facility] Nucleated red blood cell per centageOrdered By: Mahendra Devine on 07-06-2024 Nucleated RBC/100 WBC (Bld) [Ratio] 0 % 0-5 [facility] Nucleated red blood cell per centageOrdered By: Manan Escobar on 07-06-2024 Nucleated RBC/100 WBC (Bld) [Ratio] 0 % 0-5 [facility] Platelet countOrdered By: Juan Manuel Devine on 07-06-2024 Platelets (Bld) [#/Vol] 325 10*3/uL 150-450 [facility] Platelet countOrdered By: Delmy Escobar on 07-06-2024 Platelets (Bld) [#/Vol] 335 10*3/uL 150-450 [facility] Potassium measurement (mass/ volume)Ordered By: Mahendra Devine on 07-06-2024 Potassium (Unsp spec) [Mass/Vol] 3.4 mmol/L 3.3-5.1 [facility] Potassium measurement (mass/ volume)Ordered By: Caitlin Tilley on 07-06-2024 Potassium (Unsp spec) [Mass/Vol] 3.3 mmol/L 3.3-5.1 [facility] Protein Test strip Ql (U)Ord ered By: Mahendra Devine on 07-06-2024 Protein Ql (U) 30 mg/dl High Negative [facility] RBC Auto (Bld) [#/Vol]Ordere d By: Mahendra Devine on 07-06-2024 RBC (Bld) [#/Vol] 6.29 10*6/uL High 4.2-5.4 [facility] RBC Auto (Bld) [#/Vol]Ordere d By: Manan Escobar on 07-06-2024 RBC (Bld) [#/Vol] 6.26 10*6/uL High 4.2-5.4 [facility] Screening total cholesterol/ high density lipoprotein (HDL) cholesterol ratioOrdered By: Caitlin Tilley on 07-06-2024 Cholesterol.total/Adelaida sterol in HDL [Mass ratio] 4.46 {ratio} [facility] Serum creatinine measurement (mass/volume)Ordered By: Mahendra Devine on 07-06-2024 Creatinine [Mass/Vol] 1.52 mg/dL High 0.70-1.20 [facility] Serum creatinine measurement (mass/volume)Ordered By: Caitlin Tilley on 07-06-2024 Creatinine [Mass/Vol] 1.41 mg/dL High 0.70-1.20 [facility] Serum globulin measurementOr dered By: Mahendra Devine on 07-06-2024 Globulin (S) [Mass/Vol] 4.3 g/dL High 2.2-4.2 [facility] Serum globulin measurementOr dered By: Caitlin Tilley on 07-06-2024 Globulin (S) [Mass/Vol] 4.3 g/dL High 2.2-4.2 [facility] Serum glucose measurement (m ass/volume)Ordered By: Mahendra Devine on 07-06-2024 Glucose [Mass/Vol] 186 mg/dL High 70-99 [facility] Serum glucose measurement (m ass/volume)Ordered By: Caitlin Tilley on 07-06-2024 Glucose [Mass/Vol] 185 mg/dL High 70-99 [facility] Serum or plasma alanine webber otransferase (ALT) measurementOrdered By: Mahendra Devine on 07-06-2024 ALT [Catalytic activity/Vol] 34 U/L <35 [facility] Serum or plasma alanine webber otransferase (ALT) measurementOrdered By: Caitlin Tilley on 07-06-2024 ALT [Catalytic activity/Vol] 35 U/L <35 [facility] Serum or plasma albumin ricky urement (mass/volume)Ordered By: Mahendra Devine on 07-06-2024 Albumin [Mass/Vol] 4.5 g/dL 3.4-4.8 [facility] Serum or plasma albumin ricky urement (mass/volume)Ordered By: Caitlin Tilley on 07-06-2024 Albumin [Mass/Vol] 4.5 g/dL 3.4-4.8 [facility] Serum or plasma albumin/glob ulin mass ratioOrdered By: Mahendra Devine on 07-06-2024 Albumin/Globulin [Mass ratio] 1.0 {ratio} 0.9-2.4 [facility] Serum or plasma albumin/glob ulin mass ratioOrdered By: Caitlin Tilley on 07-06-2024 Albumin/Globulin [Mass ratio] 1.0 {ratio} 0.9-2.4 [facility] Serum or plasma alkaline usman sphatase measurementOrdered By: Mahendra Devien on 07-06-2024 ALP [Catalytic activity/Vol] 133 U/L High 35-104 [facility] Serum or plasma alkaline usman sphatase measurementOrdered By: Caitlin Tilley on 07-06-2024 ALP [Catalytic activity/Vol] 133 U/L High 35-104 [facility] Serum or plasma calcium ricky urement (mass/volume)Ordered By: Mahendra Devine on 07-06-2024 Calcium [Mass/Vol] 9.3 mg/dL 7.6-11.0 [facility] Serum or plasma calcium ricky urement (mass/volume)Ordered By: Caitlin Tilley on 07-06-2024 Calcium [Mass/Vol] 9.2 mg/dL 7.6-11.0 [facility] Serum or plasma cholesterol in HDL measurement (mass/volume)Ordered By: Caitlin Tilley on 07-06-2024 Cholesterol in HDL [Mass/Vol] 22 mg/dL Low >40 [facility] Comment on above: National Cholesterol Education Program (NCEP) guidelines:<40 mg/dL: Low HDL-cholesterol (major risk factor for CHD)>= 60 mg/dL: High HDL-cholesterol (negative risk factor for CHD)HDL-cholesterol is affected by a number of factors, e.g. smoking, exercise, hormones, sex and age. Serum or plasma cholesterol measurement (mass/volume)Ordered By: Caitlin Tilley on 07-06-2024 Cholesterol [Mass/Vol] 100 mg/dL <201 [facility] Comment on above: Cholesterol level, D esirable <200 mg/dLBorderline high cholesterol 200-239 mg/dLHigh cholesterol >=240 mg/dLRecommendations of the NCEP Adult Treatment Panel for the following risk-cutoff thresholds for the [place] population. Serum or plasma urea nitroge n measurement (mass/volume)Ordered By: Mahendra Devine on 07-06-2024 Urea nitrogen [Mass/Vol] 62 mg/dL High 4-19 [facility] Serum or plasma urea nitroge n measurement (mass/volume)Ordered By: Caitlin Tilley on 07-06-2024 Urea nitrogen [Mass/Vol] 56 mg/dL High 4-19 [facility] Sodium levelOrdered By: Mahendra Devine on 07-06-2024 Sodium [Moles/Vol] 132 mmol/L Low 133-145 [facility] Sodium levelOrdered By: Jorge Tilley on 07-06-2024 Sodium [Moles/Vol] 132 mmol/L Low 133-145 [facility] Squamous epithelial cells de tection in urine sediment by light microscopyOrdered By: Mahendra Devine on 07-06-2024 Epithelial cells.squamous LM Ql (Urine sed) 0-5 SEEN /hpf 5-10 [facility] T4 Free Directon 07-06-2024 T4 FREE DIRECT 1.40 ng/dL Normal 0.76-1.46 [facility] Comment on above: Performed By: #### L 501.6901, L500.4050 #### [facility] [address] [place], [place], [id number] T4 freeOrdered By: Sury on 07-06-2024 Free T4 [Mass/Vol] 1.40 ng/dL 0.76-1.46 [facility] TSH DL <= 0.005 mIU/L QnOrde red By: Caitlin Tilley on 07-06-2024 TSH Qn 1.580 uIU/mL 0.300-4.200 [facility] Thyroid Stim Hormone (TSH)on 07-06-2024 TSH 1.580 uIU/mL Normal 0.300-4.200 [facility] Comment on above: Performed By: #### L 501.6901, L500.4050 #### [facility] [address] [place], [address] Total proteinOrdered By: Xiomy Devine on 07-06-2024 Protein [Mass/Vol] 8.8 g/dL High 5.9-8.4 [facility] Total proteinOrdered By: Nova Tilley on 07-06-2024 Protein [Mass/Vol] 8.8 g/dL High 5.9-8.4 [facility] Triglycerides measurementOrd ered By: Caitlin Tilley on 07-06-2024 Triglyceride [Mass/Vol] 133 mg/dL <199 [facility] Comment on above: The drugs N-Acetylcy steine and Metamizole may falsely depress this assay. Normal range: <150 mg/dLBorderline High: 150-199 mg/dLHigh: 200-499 mg/dLVery High: >500 mg/dL Urinalysis, Completeon 07-06 BACTERIA 1+ /hpf Normal None Seen [facility] Comment on above: Order Comment: CLEAN CATCH Performed By: #### L 100.0100 #### [facility] [address] [place], [address] CAST,FINE GRAN 0-5 SEEN Normal 0-5 [facility] Comment on above: Order Comment: CLEAN CATCH Performed By: #### L 100.0100 #### [facility] [address] [place], [address] CAST,HYALINE 5-10 SEEN Normal 0-5 [facility] Comment on above: Order Comment: CLEAN CATCH Performed By: #### L 100.0100 #### [facility] [address] [place], [address] EPI,SQUAMOUS 0-5 SEEN Normal 5-10 [facility] Comment on above: Order Comment: CLEAN CATCH Performed By: #### L 100.0100 #### [facility] [address] [place], [address] WBC 0-5 SEEN Normal 0-5 [facility] Comment on above: Order Comment: CLEAN CATCH Performed By: #### L 100.0100 #### [facility] [address] [place], [address] Mucus Ql (Urine sed) 0 SEEN Normal [facility] Comment on above: Order Comment: CLEAN CATCH Performed By: #### L 100.0100 #### [facility] [address] [place], [address] RBC 0 SEEN Normal 0-5 [facility] Comment on above: Order Comment: CLEAN CATCH Performed By: #### L 100.0100 #### [facility] [address] [place], [address] Urine clarityOrdered By: Xiomy Devine on 07-06-2024 Clarity (U) Clear Clear [facility] Urine color determinationOrd ered By: Mahendra Devine on 07-06-2024 Color (U) Yellow Yellow [facility] Urine glucose detectionOrder ed By: Mahendra Devine on 07-06-2024 Glucose Ql (U) Normal mg/dl Normal [facility] Urine leukocyte esterase det ection by dipstickOrdered By: Mahendra Devine on 07-06-2024 Leukocyte esterase Test strip Ql (U) Negative Negative [facility] Urine pHOrdered By: Mahendra walton on 07-06-2024 pH (U) 5.0 [pH] 5.0 - 8.0 [facility] Urine sediment bacteria coun t by microscopy (number/high power field)Ordered By: Mahendra Devine on 07-06-2024 Bacteria LM.HPF (Urine sed) [#/Area] 1 /[HPF] None Seen [facility] Urine sediment fine granular cast count by microscopy (number/low power field)Ordered By: Mahendra Devine on 07-06-2024 Fine Granular Casts LM.LPF (Urine sed) [#/Area] 0-5 SEEN /lpf 0-5 [facility] Urine specific gravity measu rementOrdered By: Mahendra Devine on 07-06-2024 Specific gravity (U) [Rel density] 1.025 1.002-1.030 [facility] Urine urobilinogen measureme ntOrdered By: Mahendra Devine on 07-06-2024 Urobilinogen Ql (U) Normal mg/dl Normal [facility] Venous Blood Gason Blood Gas Type CARLOTA Normal [facility] Comment on above: Performed By: #### L 9000.0810 #### [facility] [address] [place], [address] CO2 [Moles/Vol] 17 mmol/L Low 23-33 [facility] Comment on above: Performed By: #### L 9000.0810 #### [facility] [address] [place], [address] FI02 21.0 Normal [facility] Comment on above: Performed By: #### L 9000.0810 #### [facility] [address] [place], [address] HCO3 (Bld) [Moles/Vol] 16 mmol/L Low 22-26 [facility] Comment on above: Performed By: #### L 9000.0810 #### [facility] [address] [place], [address] O2 Delivery Dev Not entered [facility] Comment on above: Performed By: #### L 9000.0810 #### [facility] [address] [place], [address] SITE Not entered [facility] Comment on above: Performed By: #### L 9000.0810 #### [facility] [address] [place], [address] VBG BE -10 mmol/L Low -1.0-3.5 [facility] Comment on above: Performed By: #### L 9000.0810 #### [facility] [address] [place], [address] VBG pCO2 35.0 mmHg Low 41-51 [facility] Comment on above: Performed By: #### L 9000.0810 #### [facility] [address] [place], [address] VBG pH 7.28 Low 7.32-7.42 [facility] Comment on above: Performed By: #### L 9000.0810 #### [facility] [address] [place], [place], [address] VBG PO2 34 mmHg Normal 25-40 [facility] Comment on above: Performed By: #### L 9000.0810 #### [facility] [address] [place], [place], [address] VBG SO2 58 Normal 50-70 [facility] Comment on above: Performed By: #### L 9000.0810 #### [facility] [address] [place], [place], [address] Venous blood base excess leonadro surementOrdered By: Mahendra Devine on 07-06-2024 Base excess Calc (BldV) [Moles/Vol] -10 mmol/L Low -1.0-3.5 [facility] Venous blood bicarbonate leonardo surementOrdered By: Mahendra Devine on 07-06-2024 HCO3 (Bld) [Moles/Vol] 16 mmol/L Low 22-26 [facility] Venous blood oxygen saturati on measurementOrdered By: Mahendra Devine on 07-06-2024 Oxygen saturation in Blood 58 % 50-70 [facility] Venous blood pH measurementO rdered By: Mahendra Devine on 07-06-2024 pH (BldV) 7.28 [pH] Low 7.32-7.42 [facility] Venous blood partial pressur e of carbon dioxide measurementOrdered By: Mahendra Devine on 07-06-2024 CO2 (BldV) [Partial pressure] 35.0 mm[Hg] Low 41-51 [facility] Venous blood partial pressur e of oxygen measurementOrdered By: Mahendra Devine on 07-06-2024 Oxygen (BldV) [Partial pressure] 34 mm[Hg] 25-40 [facility] Vitamin D,25 Hydroxyon 07-06 Vitamin D 25-OH 31.3 ng/mL Normal 30-100 [facility] Comment on above: Result Comment: Erica min D Status Deficiency: <20 ng/mL (50nmol/L) Insufficiency: 20-30 ng/mL (50-75 nmol/L) Sufficiency: 30-100 ng/mL (75-250 nmol/L) Toxicity: >100 ng/mL (>250 nmol/L) Performed By: #### L 501.6901, L500.4050 #### [facility] [address] [place], [place], [address] White blood cell (WBC) count Ordered By: Mahendra Devine on 07-06-2024 WBC (Bld) [#/Vol] 11.2 10*3/uL High 4.4-11.0 [facility] White blood cell (WBC) count Ordered By: Manan Escobar on 07-06-2024 WBC (Bld) [#/Vol] 10.1 10*3/uL 4.4-11.0 [facility] White blood cell countOrdere d By: Mahendra Devine on 07-06-2024 White blood cell count 0-5 SEEN /hpf 0-5 [facility] Bone density reportOrdered B y: Miki Ivan on 06-06-2024 Study report Skeletal system DXA [facility] Imaging Services [address] [place], [place] [address] Dexa Bone Density Study MR#: [id number] Acct: [id number] Name: LIGIA RIVAS Rep #: [id number] : 1960 F 63 From: Emerson Ivan MD PCP: Dr. Pancho Tran MD Status: R EG CLI Study:Dexa Bone Density Study Date of Exam: 06/01/24 Exam# [id number] Ordering Dr: Luke Tran MD PROCEDURE: DEXA [...] Recommend follow-up as clinically warranted. Reading Location: [place] [address] CC: Dr. Pancho Tran MD ~ Vendor Representatives: Signed [facility] Breast imaging reportOrdered By: Esperanza Moreua on 06-02-2024 Study report [facility] Imaging Services [address] [place], [place] [address] SCRN MAMM (CAD)W/PERLA BILAT MR#: [id number] Acct: [id number] Name: LIGIA RIVAS Rep #: [id number] : 1960 F 63 From: Luz Moreau MD PCP: Dr. Pancho Tran MD Status: R EG CLI Study:SCRN MAMM (CAD)W/PERLA BILAT Date of Exa m: 06/01/24 Exam# [id number] Ordering Dr: Luke Tran MD EXAM: SCRN [...] be mailed to the patient. Reading Location: [facility] CC: Dr. Pancho Tran MD ~ Vendor Representatives: Signed [facility] Dexa Bone Density Studyon Dexa Bone Density Study [facility] Imaging Services [address] [place] [address] Dexa Bone Density Study MR#: [id number] Acct: [id number] Name: LIGIA RIVAS Rep #: [id number] : 1960 F 63 From: Miki alcantar MD PCP: Dr. Pancho Tran MD Status: REG CLI Study: Dexa Bone Density Study Date of Exam: 06/01/24 Exam# [id number] Ordering Dr: Pancho Tran MD PROCEDURE: DEXA [...] Recommend follow-up as clinically warranted. Reading Location[facility] CC: Dr. Pancho Tran MD Vendor Representatives: Signed Normal [facility] SCRN MAMM (CAD)W/PERLA BILATo n 06-01-2024 SCRN MAMM (CAD)W/PERLA BILAT [facility] Imaging Services [address] [place] [address] SCRN MAMM (CAD)W/PERLA BILAT MR#: [id number] Acct: [id number] Name: LIGIA RIVAS Rep #: [id number] : 1960 F 63 From: Esperanza Moreau MD PCP: Dr. Pancho Tran MD Status: REG CLI Study: SCRN MAMM (CAD)W/PERLA BILAT Date of Exam: 05/23 Exam# [id number] Ordering Dr: Pancho Tran MD EXAM: SCRN [...] be mailed to the patient. Reading Location: [facility] CC: Dr. Pancho Tran MD Vendor Representatives: Signed Normal [facility] PAP IG HPV APTIMA 16/18,45on 05-31-2024 ADEQ Comment Normal . [facility] Comment on above: Order Comment: Speci men Comment: [id number] Comment: Source.............CervixSpecimen Comment: Other..............Post MenopausalSpecimen Comment: No. of containers..01 ThinPrep Vial Result Comment: Sati sfactory for evaluation. Endocervical and/or squamous metaplastic cells (endocervical component) are present. Performed By: #### L 501.6901, L500.4050 #### [facility] [address] [place], [place], [address] COMM . Normal . [facility] Comment on above: Order Comment: Speci men Comment: [id number] Comment: Source.............CervixSpecimen Comment: Other..............Post MenopausalSpecimen Comment: No. of containers..01 ThinPrep Vial Performed By: #### L 501.6901, L500.4050 #### [facility] [address] [place], [address] COMMENT Comment Normal . [facility] Comment on above: Order Comment: Speci men Comment: [id number] Comment: Source.............CervixSpecimen Comment: Other..............Post MenopausalSpecimen Comment: No. of containers..01 ThinPrep Vial Result Comment: This liquid based ThinPrep(R) pap test was screened with the use of an image guided system. Performed By: #### L 501.6901, L500.4050 #### [facility] [address] [place], [place], [address] DIAG Comment Abnormal . [facility] Comment on above: Order Comment: Speci men Comment: [id number] Comment: Source.............CervixSpecimen Comment: Other..............Post MenopausalSpecimen Comment: No. of containers..01 ThinPrep Vial Result Comment: EPIT HELIAL CELL ABNORMALITY. ATYPICAL SQUAMOUS CELLS OF UNDETERMINED SIGNIFICANCE (ASC-US). Performed By: #### L 501.6901, L500.4050 #### [facility] [address] [place], [address] HPV APTIMA, HR Negative Normal Negative [facility] Comment on above: Order Comment: Speci men Comment: [id number] Comment: Source.............CervixSpecimen Comment: Other..............Post MenopausalSpecimen Comment: No. of containers..01 ThinPrep Vial Result Comment: This nucleic acid amplification test detects fourteen high- risk HPV types (16,18,31,33,35,39,45,51,52,56,58,59,66,68) without differentiation. Performed By: #### L 501.6901, L500.4050 #### [facility] [address] [place], [address] HPV Alka Rfx Comment Normal . [facility] Comment on above: Order Comment: Speci men Comment: [id number] Comment: Source.............CervixSpecimen Comment: Other..............Post MenopausalSpecimen Comment: No. of containers..01 ThinPrep Vial Result Comment: Crit eria not met, HPV Genotype not performed. Performed at: - [address], [place] [id number] Radio Frequency Design Engineer: Palak Matson MD, Phone: [phone] Performed at: [facility] [address] [place] [id number] Radio Frequency Design Engineer: Romulo Levin MD, Phone: [phone] Performed at: = - [address], [place] [id number] Radio Frequency Design Engineer: Palak Matson MD, Phone: [phone] Performed By: #### L 501.6901, L500.4050 #### [facility] [address] [place], [place], [address] PAPSMR Comment Normal . [facility] Comment on above: Order Comment: Speci men Comment: [id number] Comment: Source.............CervixSpecimen Comment: Other..............Post MenopausalSpecimen Comment: No. [...] Performed By: #### L 501.6901, L500.4050 #### [facility] [address] [place], [place], [address] Path.prov.IDC-9 Comment Normal . [facility] Comment on above: Order Comment: Speci men Comment: [id number] Comment: Source.............CervixSpecimen Comment: Other..............Post MenopausalSpecimen Comment: No. of containers..01 ThinPrep Vial Result Comment: R87. 610 Performed By: #### L 501.6901, L500.4050 #### [facility] [address] [place], [address] PERFORM Comment Normal . [facility] Comment on above: Order Comment: Speci men Comment: [id number] Comment: Source.............CervixSpecimen Comment: Other..............Post MenopausalSpecimen Comment: No. of containers..01 ThinPrep Vial Result Comment: Verenice Saldana, Recruiting Scheduler (ASCP) Performed By: #### L 501.6901, L500.4050 #### [facility] [address] [place], [place], [address] RECOMM Comment Abnormal . [facility] Comment on above: Order Comment: Speci men Comment: [id number] Comment: Source.............CervixSpecimen Comment: Other..............Post MenopausalSpecimen Comment: No. of containers..01 ThinPrep Vial Result Comment: Sugg est follow up as clinically appropriate. Performed By: #### L 501.6901, L500.4050 #### [facility] [address] [place], [place], [address] SIGN Comment Normal . [facility] Comment on above: Order Comment: Speci men Comment: [id number] Comment: Source.............CervixSpecimen Comment: Other..............Post MenopausalSpecimen Comment: No. of containers..01 ThinPrep Vial Result Comment: Shama Matson MD, Pathologist Performed By: #### L 501.6901, L500.4050 #### [facility] [address] [place], [place], [address] Cervical or vaginal specimen microscopic examination by liquid based cytology (reportOrdered By: Pam Small on 05-25-2024 Cytology report Cyto stain.thin prep Doc (Cvx/Vag) Comment . [facility] Comment on above: Criteria not met, HP V Genotype not performed.Performed at: - [address], [place] [id number] Director: Palak Matson MD, Phone: [phone] at: [facility] Cyto [address] [place], [place] [id number] Director: Romulo Levin MD, Phone: [phone] at: = - [address], [place] [id number] Director: Palak Matson MD, Phone: [phone] Cervical or vagninal specime n microscopic examination by cytology stain (reported asOrdered By: Pam Small on 05-25-2024 Cytology report Cyto stain Doc (Cvx/Vag) Comment . [facility] Comment on above: The Pap smear is a s creening test designed to aid in thedetection of premalignant and malignant conditions of theuterine cervix. It is not a diagnostic procedure andshould not be used as the sole means of detecting cervicalcancer. Both false-positive and false-negative reports dooccur. Recruiting Scheduler Cyto stain Nom (C vx/Vag) [ID]Ordered By: Pam Small on 05-25-2024 Pap Smear Performed By Comment . [facility] Comment on above: Verenice Saldana, Cyto logist (ASCP) Cytology report Cyto stain D oc (Cvx/Vag)Ordered By: Pam Small on 05-25-2024 Thin Prep Pap Smear Comment . [facility] Comment on above: The Pap smear is [...] 05-25-2024 HPV Genotype Special Info Comment . [facility] Comment on above: Criteria not met, HP V Genotype not performed.Performed at: - [facility] [id number] Director: Palak Matson MD, Phone: [phone] at: [facility] Cy[address] [place], [place] [id number] Director: Romulo Levin MD, Phone: [phone] at: = - [facility] [id number] Director: Palak Matson MD, Phone: [phone] Detection in cervical specim en of any of human papilloma virus (HPV) 16, 18, 31, 33,Ordered By: Pam Small on 05-25-2024 HPV 16+18+31+33+35+39+45+51 +52+56+58+59+66+68 DNA Probe+sig amp Ql (Cvx) Negative Negative [facility] Comment on above: This nucleic acid am plification test detects fourteen high-risk HPV types (16,18,31,33,35,39,45,51,52,56,58,59,66,68)without differentiation. HPV 16+18+31+33+35+39+45+51+ 52+56+58+59+66+68 DNA Probe+sig amp Ql (Cvx)Ordered By: Pam Small on 05-25-2024 Human Papillomavirus High Risk Negative Negative [facility] Comment on above: This nucleic acid am plification test detects fourteen high-risk HPV types (16,18,31,33,35,39,45,51,52,56,58,59,66,68)without differentiation. Image-guided ThinPrep PapOrd ered By: Pam Small on 05-25-2024 Pap Smear Note Comment . [facility] Comment on above: This liquid based Th inPrep(R) pap test was screened withthe use of an image guided system. Image-guided liquid-based Pa pOrdered By: Pam Small on 05-25-2024 Pap Smear Diagnosis Comment High . [facility] Comment on above: EPITHELIAL CELL ABNO RMALITY.ATYPICAL SQUAMOUS CELLS OF UNDETERMINED SIGNIFICANCE (ASC-US). Laboratory - CytologyOrdered By: Pam Small on 05-25-2024 Recruiting Scheduler Cyto stain Nom (Cvx/Vag) [ID] Comment . [facility] Comment on above: Verenice Saldana, Cyto logist (ASCP) Pathologist Cyto stain Nom (Cvx/Vag) [ID] Comment . [facility] Comment on above: Palak Matson MD, Pathologist Recommended follow-up Cyto stain Nom (Cvx/Vag) Comment High . [facility] Comment on above: Suggest follow up as clinically appropriate. Laboratory - Miscellaneous t estsOrdered By: Pam Small on 05-25-2024 Service comment (Unsp spec) [Interp] . . [facility] No Panel InformationOrdered By: Pam Small on 05-25-2024 Pap Smear Specimen Adequacy Comment . [facility] Comment on above: Satisfactory for latrice luation. Endocervical and/or squamous metaplasticcells (endocervical component) are present. Pathology report final diagnosis Narrative Comment . [facility] Comment on above: R87.610 Pathologist Cyto stain Nom ( Cvx/Vag) [ID]Ordered By: Pam Small on 05-25-2024 Pap Smear Signed Out By Comment . [facility] Comment on above: Palak Matson MD, Pathologist Pathology report final diagn osis NarrativeOrdered By: Pam Small on 05-25-2024 Pap Smear Comment (2) Comment . [facility] Comment on above: R87.610 Recommended follow-up Cyto s tain Nom (Cvx/Vag)Ordered By: Pam Small on 05-25-2024 Pap Smear Recommendation Comment High . [facility] Comment on above: Suggest follow up as clinically appropriate. Service comment (Unsp spec) [Interp]Ordered By: Pam Small on 05-25-2024 Pap Smear Comment (3) . . 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 Normal [facility] EMERGENCY DEPARTMENTon 05-06 EMERGENCY DEPARTMENT [address] [address] HEALTH INFORMATION MANAGEMENT EMERGENCY DEPARTMENT : [id number] Signed Patient: LIGIA RIVAS Acct:[id number] MRUN: [id number] : 1960 Sex: F Loc: ED ADM [...] Feels Threatened In a Relationship: No - Richardson/Gender ID What is your current Gender Identity? [...] for further evaluation. - Medical Decision Making [facility] Patient seen and examined, the clinical presentation [...] for mahendra (more content not included)... Normal [facility] RIGHT HAND MIN 3Von 05-07-19 25 [...] the right wrist for further evaluation. Normal [facility] Absolute lymphocyte countOrd ered By: Pancoh Tran on 04-20-2024 Lymphocytes Auto (Unsp spec) [#/Vol] 3.32 10*3/uL 0.83-4.51 [facility] Absolute neutrophil countOrd ered By: mansoorlawrencevilleesmer Tran on 04-20-2024 Neutrophils (Bld) [#/Vol] 5.9 10*3/uL 2.0-7.7 [facility] Automated lymphocyte count a s percentage of total leukocytesOrdered By: Pancho Tran on 04-20-2024 Lymphocytes/100 WBC Auto (Unsp spec) 32.1 % 19-41 [facility] BUN/creatinine ratioOrdered By: Pancho Tran on 04-20-2024 Urea nitrogen/Creatinine [Mass ratio] 23.5 mg/mg High 10-20 [facility] Basophil percentageOrdered B y: Pancho Tran on 04-20-2024 Basophils/100 WBC (Bld) 0.8 % 0-1 [facility] Bilirubin, totalOrdered By: Pancho Tran on 04-20-2024 Bilirubin [Mass/Vol] 0.38 mg/dL 0.00-1.30 [facility] CBC W/Diff, Automatedon 03-26 Absolute Lymph 3.32 X10 3/uL Normal 0.83-4.51 [facility] Comment on above: Performed By: #### L 501.6901, L500.4050 #### [facility] [address] [place], [address] Absolute Neut 5.9 X10 3/uL Normal 2.0-7.7 [facility] Comment on above: Performed By: #### L 501.6901, L500.4050 #### [facility] [address] [place], [address] Basophils/100 WBC (Bld) 0.8 % Normal 0-1 [facility] Comment on above: Performed By: #### L 501.6901, L500.4050 #### [facility] [address] [place], [address] Eosinophils/100 WBC (Bld) 2.7 % Normal 0-5 [facility] Comment on above: Performed By: #### L 501.6901, L500.4050 #### [facility] [address] [place], [address] Erythrocyte distribution width (RBC) [Ratio] 14.4 % Normal 11.6-14.6 [facility] Comment on above: Performed By: #### L 501.6901, L500.4050 #### [facility] [address] [place], [address] Hematocrit (Bld) [Volume fraction] 42.9 % Normal 37-47 [facility] Comment on above: Performed By: #### L 501.6901, L500.4050 #### [facility] [address] [place], [address] Hemoglobin (Bld) [Mass/Vol] 14.1 g/dL Normal 12.0-15.0 [facility] Comment on above: Performed By: #### L 501.6901, L500.4050 #### [facility] [address] [place], [address] IG% 0.400 Normal 0.0-0.9 [facility] Comment on above: Result Comment: IG% - Immature Granulocytes (promyelocytes, myelocytes and metamyelocytes) > 1% indicates that a LEFT SHIFT is Present. Performed By: #### L 501.6901, L500.4050 #### [facility] [address] [place], [address] Lymphocytes/100 WBC (Bld) 32.1 % Normal 19-41 [facility] Comment on above: Performed By: #### L 501.6901, L500.4050 #### [facility] [address] [place], [address] MCH (RBC) [Entitic mass] 28.3 pg Normal 27.0-32.0 [facility] Comment on above: Performed By: #### L 501.6901, L500.4050 #### [facility] [address] [place], [address] MCHC (RBC) [Mass/Vol] 32.9 g/dL Normal 32-36 [facility] Comment on above: Performed By: #### L 501.6901, L500.4050 #### [facility] [address] [place], [address] MCV (RBC) [Entitic vol] 86.1 fL Normal 81-99 [facility] Comment on above: Performed By: #### L 501.6901, L500.4050 #### [facility] [address] [place], [address] Monocytes/100 WBC (Bld) 7.4 % Normal 0-10 [facility] Comment on above: Performed By: #### L 501.6901, L500.4050 #### [facility] [address] [place], [address] Neutrophils/100 WBC (Bld) 56.6 % Normal 47-70 [facility] Comment on above: Performed By: #### L 501.6901, L500.4050 #### [facility] [address] [place], [address] Nucleated RBC (Bld) [#/Vol] 0 10*3/uL Normal 0-5 [facility] Comment on above: Performed By: #### L 501.690, L500.4050 #### [facility] [address] [place], [address] Platelet mean volume (Bld) [Entitic vol] 10.9 fL Normal 6.2-12.0 [facility] Comment on above: Performed By: #### L 501.690, L500.4050 #### [facility] [address] [place], [address] Platelets (Bld) [#/Vol] 303 10*3/uL Normal 150-450 [facility] Comment on above: Performed By: #### L 501.690, L500.4050 #### [facility] [address] [place], [address] RBC (Bld) [#/Vol] 4.98 10*6/uL Normal 4.2-5.4 [facility] Comment on above: Performed By: #### L 501.690, L500.4050 #### [facility] [address] [place], [address] RDW SD 44.9 fl High 35.1-43.9 [facility] Comment on above: Performed By: #### L 501.690, L500.4050 #### [facility] [address] [place], [address] WBC (Bld) [#/Vol] 10.3 10*3/uL Normal 4.4-11.0 [facility] Comment on above: Performed By: #### L 501.6901, L500.4050 #### [facility] [address] [place], [address] Carbon dioxide measurementOr dered By: Pancho Tran on 04-20-2024 CO2 [Moles/Vol] 24.7 mmol/L 22.0-29.0 [facility] Chloride measurementOrdered By: Pancho Tran on 04-20-2024 Chloride [Moles/Vol] 102 mmol/L 96-108 [facility] Comprehensive Metabolic Prof ilon 04-20-2024 Albumin [Mass/Vol] 4.1 g/dL Normal 3.4-4.8 [facility] Comment on above: Performed By: #### L 501.6901, L500.4050 #### [facility] [address] [place], [address] Albumin/Globulin [Mass ratio] 1.2 {ratio} Normal 0.9-2.4 [facility] Comment on above: Performed By: #### L 501.6901, L500.4050 #### [facility] [address] [place], [address] ALK PHOS 103 U/L Normal 35-104 [facility] Comment on above: Performed By: #### L 501.6901, L500.4050 #### [facility] [address] [place], [address] ALT [Catalytic activity/Vol] 23 U/L Normal <=34 [facility] Comment on above: Performed By: #### L 501.6901, L500.4050 #### [facility] [address] [place], [address] Anion gap [Moles/Vol] 12 mmol/L Normal 5-15 [facility] Comment on above: Performed By: #### L 501.6901, L500.4050 #### [facility] [address] [place], [address] AST [Catalytic activity/Vol] 24 U/L Normal <=31 [facility] Comment on above: Performed By: #### L 501.6901, L500.4050 #### [facility] [address] [place], [address] Bilirubin [Mass/Vol] 0.38 mg/dL Normal 0.00-1.30 [facility] Comment on above: Performed By: #### L 501.6901, L500.4050 #### [facility] [address] [place], [address] BUN/CRE 23.5 RATIO High 10-20 [facility] Comment on above: Performed By: #### L 501.6901, L500.4050 #### [facility] [address] [place], [address] Calcium [Mass/Vol] 9.4 mg/dL Normal 7.6-11.0 [facility] Comment on above: Performed By: #### L 501.6901, L500.4050 #### [facility] [address] [place], [address] Chloride [Moles/Vol] 102 mmol/L Normal 96-108 [facility] Comment on above: Performed By: #### L 501.6901, L500.4050 #### [facility] [address] [place], [address] CO2 [Moles/Vol] 24.7 mmol/L Normal 22.0-29.0 [facility] Comment on above: Performed By: #### L 501.6901, L500.4050 #### [facility] [address] [place], [address] Creatinine [Mass/Vol] 0.8 mg/dL Normal 0.6-1.0 [facility] Comment on above: Performed By: #### L 501.6901, L500.4050 #### [facility] [address] [place], [address] GFR/1.73 sq M.predicted among non-blacks MDRD (S/P/Bld) [Vol rate/Area] 79 mL/min/{1.73_m2} Normal >60 [facility] Comment on above: Result Comment: mL/m in/1.73m2 CKD-EPI Creatinine Equation (2020) Performed By: #### L 501.6901, L500.4050 #### [facility] [address] [place], [address] Globulin (S) [Mass/Vol] 3.4 g/dL Normal 2.2-4.2 [facility] Comment on above: Performed By: #### L 501.6901, L500.4050 #### [facility] [address] [place], [address] Glucose [Mass/Vol] 92 mg/dL Normal 70-99 [facility] Comment on above: Performed By: #### L 501.6901, L500.4050 #### [facility] [address] [place], [address] Potassium [Moles/Vol] 3.7 mmol/L Normal 3.3-5.1 [facility] Comment on above: Performed By: #### L 501.6901, L500.4050 #### [facility] [address] [place], [address] Sodium [Moles/Vol] 138 mmol/L Normal 133-145 [facility] Comment on above: Performed By: #### L 501.6901, L500.4050 #### [facility] [address] [place], [address] T PROT 7.6 g/dL Normal 5.9-8.4 [facility] Comment on above: Performed By: #### L 501.6901, L500.4050 #### [facility] [address] [place], [place], [address] Urea nitrogen [Mass/Vol] 20 mg/dL High 4-19 [facility] Comment on above: Performed By: #### L 501.6901, L500.4050 #### [facility] [address] [place], [address] Creatinine [Moles/Vol]Ordere d By: Pancho Tran on 04-20-2024 Creatinine [Mass/Vol] 0.8 mg/dL 0.6-1.0 [facility] Eosinophil percentageOrdered By: Pancho Tran on 04-20-2024 Eosinophils/100 WBC (Bld) 2.7 % 0-5 [facility] Erythrocyte distribution wid th ratioOrdered By: Pancho Tran on 04-20-2024 Erythrocyte distribution width (RBC) [Ratio] 14.4 % 11.6-14.6 [facility] Erythrocyte distribution wid th standard deviationOrdered By: Abdulkadirlawrencevilleesmer Tran on 04-20-2024 Erythrocyte distribution width (RBC) [Entitic vol] 44.9 fL High 35.1-43.9 [facility] Erythrocyte distribution width (RBC) [Ratio] 44.9 fl High 35.1-43.9 [facility] GFR/1.73 sq M.predicted dee g non-blacks MDRD (S/P/Bld) [Vol rate/Area]Ordered By: Pancho Tran on 04-20-2024 Estimated GFR (MDRD) Non-Af Amer 79 >60 [facility] Comment on above: mL/min/1.73m2 CKD-EP I Creatinine Equation (2020) Glomerular filtration rate ( GFR) estimation/1.73 sq m using serum, plasma, or whole bOrdered By: Pancho Tran on 04-20-2024 GFR/1.73 sq M.predicted among non-blacks MDRD (S/P/Bld) [Vol rate/Area] 79 mL/min/{1.73_m2} >60 [facility] Comment on above: mL/min/1.73m2 CKD-EP I Creatinine Equation (2020) Hematocrit Auto (Bld) [Volum e fraction]Ordered By: Pancho Tran on 04-20-2024 Hematocrit (Bld) [Volume fraction] 42.9 % 37-47 [facility] Hemoglobin measurementOrdere d By: Pancho Tran on 04-20-2024 Hemoglobin (Bld) [Mass/Vol] 14.1 g/dL 12.0-15.0 [facility] Immature granulocytes/100 WB C Auto (Bld)Ordered By: Pancho Tran on 04-20-2024 Immature granulocytes/100 WBC (Bld) 0.400 % 0.0-0.9 [facility] Comment on above: IG% - Immature Granu locytes (promyelocytes, myelocytes and metamyelocytes) > 1% indicates that a LEFT SHIFT is Present. Internal Medicine Office Vis iton 04-20-2024 Internal Medicine Office Visit [facility] [place] [address] [place] [address] OFFICE VISIT Date of Service: 04/20/24 MR#: [id number] Acct: [id number] Name: LIGIA RIVAS Rep #: [id number] : 1960 Provider: Dr. Pancho doyle MD Age/Sex: 63/F [facility] Status: Signed Intake Vital Signs 01/10/24 10:09 [...] NEW PT - ENDO PT Chief Complaint: RESTA[employer]ANT [employer]BER-[employer]ABLISH CARE Is patient in pain?: No Allergies [...] pen (Lantus Solostar U-100 Insulin) [facility] Medical History (Updated 04/20/24 @ 16:01 by [...] history: - Dionisio HPI HPI Chief Complaint: [employer]BER-EST[employer]LISH CARE Details: LIGIA RIVAS, is a 63 [...] of anxi (more content not included)... Normal [facility] - Chemistry and C hemistry - challengeOrdered By: Pancho Tran on 04-20-2024 AST [Catalytic activity/Vol] 24 U/L <32 [facility] Lymphocytes Auto (Unsp spec) [#/Vol]Ordered By: Pancho Tran on 04-20-2024 Lymphocytes (Bld) [#/Vol] 3.32 10*3/uL 0.83-4.51 [facility] Lymphocytes/100 WBC Auto (Un sp spec)Ordered By: Pancho Tran on 04-20-2024 Lymphocytes/100 WBC (Bld) 32.1 % 19-41 [facility] MCV (mean corpuscular volume ) determinationOrdered By: Pancho Tran on 04-20-2024 MCV (RBC) [Entitic vol] 86.1 fL 81-99 [facility] Mean corpuscular hemoglobin (MCH) determinationOrdered By: Pancho Tran on 04-20-2024 MCH (RBC) [Entitic mass] 28.3 pg 27.0-32.0 [facility] Mean corpuscular hemoglobin concentration (MCHC) determinationOrdered By: Pancho Tran on 04-20-2024 MCHC (RBC) [Mass/Vol] 32.9 g/dL 32-36 [facility] Mean platelet volume determi nationOrdered By: Pancho Tran on 04-20-2024 Platelet mean volume (Bld) [Entitic vol] 10.9 fL 6.2-12.0 [facility] Monocyte percentageOrdered B y: Pancho Tran on 04-20-2024 Monocytes/100 WBC (Bld) 7.4 % 0-10 [facility] Neutrophil percentageOrdered By: Pancho Tran on 04-20-2024 Neutrophils/100 WBC (Bld) 56.6 % 47-70 [facility] Nucleated red blood cell per centageOrdered By: Pancho Tran on 04-20-2024 Nucleated RBC/100 WBC (Bld) [Ratio] 0 % 0-5 [facility] Platelet countOrdered By: Ronaldo Tran on 04-20-2024 Platelets (Bld) [#/Vol] 303 10*3/uL 150-450 [facility] RBC Auto (Bld) [#/Vol]Ordere d By: Pancho Tran on 04-20-2024 RBC (Bld) [#/Vol] 4.98 10*6/uL 4.2-5.4 [facility] Serum globulin measurementOr dered By: Pancho Tran on 04-20-2024 Globulin (S) [Mass/Vol] 3.4 g/dL 2.2-4.2 [facility] Serum glucose measurement (m ass/volume)Ordered By: Pancho Tran on 04-20-2024 Glucose [Mass/Vol] 92 mg/dL 70-99 [facility] Serum or plasma alanine webber otransferase (ALT) measurementOrdered By: Pancho Tran on 04-20-2024 ALT [Catalytic activity/Vol] 23 U/L <35 [facility] Serum or plasma albumin ricky urement (mass/volume)Ordered By: Pancho Tran on 04-20-2024 Albumin [Mass/Vol] 4.1 g/dL 3.4-4.8 [facility] Serum or plasma albumin/glob ulin mass ratioOrdered By: Pancho Tran on 04-20-2024 Albumin/Globulin [Mass ratio] 1.2 {ratio} 0.9-2.4 [facility] Serum or plasma alkaline usman sphatase measurementOrdered By: Pancho Tran on 04-20-2024 ALP [Catalytic activity/Vol] 103 U/L 35-104 [facility] Serum or plasma anion gap de termination (moles/volume)Ordered By: Pancho Tran on 04-20-2024 Anion gap [Moles/Vol] 12 mmol/L 5-15 [facility] Serum or plasma calcium ricky urement (mass/volume)Ordered By: Pancho Tran on 04-20-2024 Calcium [Mass/Vol] 9.4 mg/dL 7.6-11.0 [facility] Serum or plasma creatinine m easurement (moles/volume)Ordered By: Pancho Tran on 04-20-2024 Creatinine [Moles/Vol] 0.8 mg/dL 0.6-1.0 [facility] Serum or plasma potassium me asurementOrdered By: Pancho Tarn on 04-20-2024 Potassium [Moles/Vol] 3.7 mmol/L 3.3-5.1 [facility] Serum or plasma sodium measu rement (moles/volume)Ordered By: Ronaldojose alberto Tran on 04-20-2024 Sodium [Moles/Vol] 138 mmol/L 133-145 [facility] Serum or plasma urea nitroge n measurement (mass/volume)Ordered By: Ronaldomansoorbernardinoesmer Johnsondoryluke on 04-20-2024 Urea nitrogen [Mass/Vol] 20 mg/dL High 4-19 [facility] Total proteinOrdered By: Jonas howell Alexdoryluke on 04-20-2024 Protein [Mass/Vol] 7.6 g/dL 5.9-8.4 [facility] White blood cell (WBC) count Ordered By: Truongesmer Johnsondoryluke on 04-20-2024 WBC (Bld) [#/Vol] 10.3 10*3/uL 4.4-11.0 [facility] Endocrinology Visit Reporton 04-13-2024 Endocrinology Visit Report [facility] [id number] [facility]. [address] [place] [address] OFFICE VISIT Date of Service: 04/13/24 MR#: [id number] Acct: [id number] Name: LIGIA RIVAS Rep #: [id number] : 1960 Provider: ARCADIO dodd Age/Sex: 63/F [place] [facility] [place]: Signed Intake Vital Signs 01/10/24 10:09 [...] 0 04/13/24 Rx tablet,extended release(part/cryst) [facility] Medical History Wears contact lenses Depression Thyroid [...] others. Unf (more content not included)... Normal [facility] - Hematology and Cell countsOrdered By: Caitlin Tilley on 04-13-2024 HbA1c (Bld) [Mass fraction] 7.0 % High 4.2-6.3 [facility] Direct serum free thyroxine (FT4) measurementOrdered By: Caitlin Tilley on 01-10-2024 Free T4 [Mass/Vol] 0.95 ng/dL 0.76-[facility]on 01-10-2024 Endocrinology Visit Report [facility] [address] [place] [address] OFFICE VISIT Date of Service: 01/10/24 MR#: [id number] Acct: [id number] Name: LIGIA RIVAS Rep #: [id number] : 1960 Provider: ARCADIO dodd Age/Sex: 63/F [place] [facility] [place]: Signed Intake Vital Signs 10/07/23 09:50 [...] significant ep (more content not included)... Normal [facility] Free T3on 01-10-2024 Free T3 [Mass/Vol] 2.9 pg/mL Normal 2.18-3.98 [facility] Comment on above: Performed By: #### L 501.79985, L501.9520, L506.0400 #### [facility] [address] [place], [address] Free I7Tpenhsp By: Sury on 01-10-2024 Free Triiodothyronine (T3) pg/dL 2.9 pg/mL 2.18-3.98 [facility] - Hematology and Cell countson 01-10-2024 HbA1c (Bld) [Mass fraction] 6.2 % 4.2-6.3 [facility] T4 Free Directon 01-10-2024 T4 FREE DIRECT 0.95 ng/dL Normal 0.76-1.46 [facility] Comment on above: Performed By: #### L 501.19253, L501.9520, L506.0400 #### [facility] [address] [place], [address] TSH QnOrdered By: Caitlin dodd on 01-10-2024 Thyroid Stimulating Hormone (TSH) 0.051 uIU/mL Low 0.358-3.740 [facility] Thyroid Stim Hormone (TSH)on 01-10-2024 TSH 0.051 uIU/mL Low 0.358-3.740 [facility] Comment on above: Performed By: #### L 501.87475, L501.9520, L506.0400 #### [facility] [address] [place], [address] HIP, UNI W/ Pelvis 2-3 Views on 12-01-2023 HIP, UNI W/ Pelvis 2-3 Views [facility] [address] [place] [address] HIP, UNI W/ Pelvis 2-3 Views MR#: [id number] Acct: [id number] Name: LIGIA RIVAS Rep #: [id number] : 1960 F 62 From: Fabiano Arevalo MD PCP: 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 ARCADIO Morris Status: DEP AMB Study: HIP, UNI W/ Pelvis 2-3 Views Date of Exam: 11/15 Exam# [id number] Ordering Dr: Gavin Bhakta DO [id number] STUDY: X-RAY - PELVIS AND LEFT HIP [...] GARCES. Sandra Meredith; Dr. Gavin Bhakta DO Vendor Representatives: Signed Normal [facility] Orthopedic Visit Reporton Orthopedic Visit Report [facility] [address] [place] [address] OFFICE VISIT Date of Service: 12/01/23 MR#: [id number] Acct: [id number] Name: LIGIA RIVAS Rep #: [id number] : 1960 Provider: Dr. Gavin melton DO Age/Sex: 62/F Location: [facility] Status: Signed Intake Vital Signs 08/05/23 11:00 [...] intact left (more content not included)... Normal [facility] XR HIP LEFT 2-3 VIEWSon 05-24 [...] hip osteoarthritis. No acute osseous abnormality. Normal [facility] [place] [facility] XR Hip - left 2 Viewson 05-24 [...] left hip osteoarthritis. No acute osseous abnormality. [facility] Radiology Study observation (narrative) [facility] XR Hip - left 2 ViewsOrdered By: Juno Kirk on 06-16-2023 [facility] Work Phone: Bacteria Ur Culton 3 Bacteria [...] technique or straight catheterization for???urine???collecti on. Normal [facility] Comment on above: Performed By: #### 6 30-4 #### [facility] CLIA [id number] [address] [place] [address] [place] HbA1c (Bld)on 05-18-2022 Average glucose Estimated from glycated hemoglobin (Bld) [Mass/Vol] 243 mg/dL Normal [facility] Comment on above: Order Comment: Harry cummings Type: BLOOD SPECIMEN Ordering Facility: [facility] Address: [address] [place] [address] Result Comment: eAG: (Estimated average glucose) is a calculated value from HgbA1c and is in home sales representative of the average blood glucose level in the last 2-3 month period. Performed By: #### 5 5454-3 #### [facility] CLIA [id number] [address] [place] [address] [place] HbA1c (Bld) [Mass fraction] 10.1 % High 4.3-5.6 [facility] Comment on above: Order Comment: Harry cummings Type: BLOOD SPECIMEN Ordering Facility: [facility] Address: [address] [place] [address] Result Comment: Amer ican Diabetes Association guidelines indicate that patients with HgbA1c in the range 5.7-6.4% are at increased risk for development of diabetes, and intervention by lifestyle modification may be beneficial. HgbA1c greater or equal to 6.5% is considered diagnostic of diabetes. Performed By: #### 5 5454-3 #### [facility] CLIA [id number] [address] [place] [address] [place] HbA1c (Bld)on 03-20-2022 Average glucose Estimated from glycated hemoglobin (Bld) [Mass/Vol] 209 mg/dL Normal [facility] Comment on above: Order Comment: Harry cummings Type: BLOOD SPECIMEN Ordering Facility: [facility] Address: [address] [place] [address] Result Comment: eAG: (Estimated average glucose) is a calculated value from HgbA1c and is in home sales representative of the average blood glucose level in the last 2-3 month period. Performed By: #### 5 5454-3 #### [facility] CLIA [id number] [address] [place] [address] [place] HbA1c (Bld) [Mass fraction] 8.9 % High 4.3-5.6 [facility] Comment on above: Order Comment: Harry cummings Type: BLOOD SPECIMEN Ordering Facility: [facility] Address: [address] [place] [address] Result Comment: Amer ican Diabetes Association guidelines indicate that patients with HgbA1c in the range 5.7-6.4% are at increased risk for development of diabetes, and intervention by lifestyle modification may be beneficial. HgbA1c greater or equal to 6.5% is considered diagnostic of diabetes. Performed By: #### 5 5454-3 #### [facility] CLIA [id number] [address] [place] [address] [place] HbA1c (Bld)on 11-17-2021 Average glucose Estimated from glycated hemoglobin (Bld) [Mass/Vol] 249 mg/dL Normal [facility] Comment on above: Order Comment: Harry cummings Type: BLOOD SPECIMEN Ordering Facility: [facility] Address: [facility] [place] [address] Result Comment: eAG: (Estimated average glucose) is a calculated value from HgbA1c and is in home sales representative of the average blood glucose level in the last 2-3 month period. Performed By: #### 5 5454-3 #### [facility] CLIA [id number] [address] [place] [address] [place] HbA1c (Bld) [Mass fraction] 10.3 % High 4.3-5.6 [facility] Comment on above: Order Comment: Speci men Type: BLOOD SPECIMEN Ordering Facility: [facility] Address: [address] [place] [address] Result Comment: Amer ican Diabetes Association guidelines indicate that patients with HgbA1c in the range 5.7-6.4% are at increased risk for development of diabetes, and intervention by lifestyle modification may be beneficial. HgbA1c greater or equal to 6.5% is considered diagnostic of diabetes. Performed By: #### 5 5454-3 #### [facility] CLIA [id number] [address] [place] [address] [place] Hemoglobin A1con 03-07-2020 HbA1c (Bld) [Mass fraction] 9.5 % High 4.3-5.6 [facility] Comment on above: Performed By: #### H BA1C #### [facility] Routine Lab [address] [place] [address] HbA1c (Bld) [Mass fraction] 226 mg/dL Normal [facility] Comment on above: Performed By: #### H BA1C #### [facility] Routine Lab [address] [place] [address] Hemoglobin A1con 09-04-2019 HbA1c (Bld) [Mass fraction] 8.1 % High 4.3-5.6 [facility] Comment on above: Performed By: #### H BA1C #### [facility] Routine Lab [address] [place], [place] [address] HbA1c (Bld) [Mass fraction] 186 mg/dL Normal [facility] Comment on above: Performed By: #### H BA1C #### [facility] Routine Lab [address] [place], [place] [address] ANAEROBEon 02-09-2018 ANAEROBE NO ANAEROBES ISOLATE D. NO ORGANISMS SEEN ORGANISM 1: NO GROWTH Normal [facility] Comment on above: Performed By: #### M 160.1999 #### [facility] [address] [place] [address] CHEST-ONE VIEW ONLY - CXR1on 01-28-2018 CHEST-ONE VIEW ONLY - CXR1 [place] [address] Name: LIGIA RIVAS Phys: MILA HOROWITZ D.O. : [birth year] Age: 57 Sex: F Acct: [id number] Loc: [facility] Exam Date: 01/28/18 Status: [facility] Radiology No.: [id number] Unit Number: [id number] Exam # Type/Exam [id number] RAD / CHEST-ONE VIEW ONLY - CXR1 [...] Professional interpretation provided by [facility], [place] on RAC-PC-60. Thank you for this referral. < > Reported By: CATHY MAN M.D. Signed In NovaPro By: CATHY MAN M.D. << Signature on File>> Reported By: CATHY MAN M.D. Signed By: CATHY MAN M.D. Tests performed at: [address] [address] Normal [facility] FOOT 3 VIEWSon 01-28-2018 FOOT [address] [address] Name: LIGIA RIVAS Phys: MANE SMITH D.P.M. : [birth year] Age: 57 Sex: F Acct: [id number] Loc: AMB Exam Date: 01/28/18 Status: REG [facility] Radiology No.: [id number] Unit Number: [id number] Exam # Type/Exam [id number] RAD / FOOT 3 VIEWS RT EXAMINATION: [...] Professional interpretation provided by [facility], [place] on [facility]PC-66. Thank you for this referral. < > Reported By: STERLING ROSA D.O. Signed In NovaPro By: STERLING ROSA D.O. << Signature on File>> Reported By: STERLING ROSA D.O. Signed By: STERLING ROSA D.O. Tests performed at: [place] [address] Normal [facility] FOOT 3 VIEWS [place] [address] Name: LIGIA RIVAS Phys: MANE SMITH D.P.M. : [birth year] Age: 57 Sex: F Acct: [id number] Loc: AMB Exam Date: 01/28/18 Status: REG [facility] Radiology No.: [id number] Unit Number: [id number] Exam # Type/Exam [id number] RAD / FOOT 3 VIEWS RT EXAMINATION: [...] Professional interpretation provided by [facility], [place] on RAC-PC-66. Thank you for this referral. < > Reported By: STERLING ROSA D.O. Signed In NovaPro By: STERLING ROSA D.O. << Signature on File>> Reported By: STERLING ROSA D.O. Signed By: STERLING ROSA D.O. Tests performed at: [address] [address] Normal [facility] GLUCOSE FSon 01-28-2018 Glucose mass conc 237 mg/dL High 70-110 [facility] Comment on above: Performed By: #### L 100.0070 #### [facility] [address] [place] [address] OPERATIVE REPORTon 8 [place] [address] HEALTH INFORMATION MANAGEMENT OPERATIVE REPORT Patient: LIGIA RIVAS ANDREW W D.P.M. [id number] [age] F Status: [facility] DATE OF SERVICE 01/28/2018. HISTORY OF PRESENT [...] arthrodesis right foot. SURGEON Dr. Mane Smith. ASSEMBLER FILTERS Elinor Hidalgo D.P.M., postgraduate year 3. ANESTHESIA [...] By: MANE SMITH D.P.M. Tests performed at: [place] [address] Normal [facility] SURGICALon 01-28-2018 SURGICAL Bone of foot - BONE ARTHRITIS RT FOOT GROSS DESCRIPTION: Labeled bone right foot. Received in formalin are multiple fragments of white to pink solis soft tissue measuring 5.0 x 5.0 x 1.5 cm in aggregate. These are fragments of bone and cartilage. Sandblaster Supervisor fragments are submitted in one cassette after [...] SEA MAE M.D. 02/02/18 1527 ---- Normal [facility] Comment on above: Performed By: #### P -S #### [facility] [address] [address] SURGICAL HISTORY AND PHYSICA Raúl 01-25-2018 SURGICAL [place] [address] HEALTH INFORMATION MANAGEMENT SURGICAL HISTORY AND PHYSICAL Patient: LIGIA RIVAS ANDREW W D.PEssenceMEssence [id number] 64 [address] F Status: PRE 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 Weightbearing x-rays were obtained at [facility], three views of the right foot. The [...] for preoperative testing. These were performed at [facility]. The EKG showed a normal sinus rhythm [...] triple arthrodesis of the right foot at [facility] on 01/28/2018. MANE SMITH D.P.M. cc: MONCHO LINN D.O.; MANE SMITH D.P.M. << Signature on File>> Reported By: MANE SMITH D.P.M. Signed By: MANE SMITH D.P.M. Tests performed at: [address] [address] Normal [facility] Vital Signs Date Time Vital Sign Value Performing Clinician Kaia agry 11-16-2024 09:59-0400 Body height 170.[address] Pancho Tran MD Work Phone: [facility] 11-16-2024 09:59-0400 Body mass index (BMI) [Ratio] 40.7 kg/m2 Dr. Pancho Tran MD Work Phone: [facility] 11-16-2024 09:59-0400 Body temperature 97.3 [degF] Dr. Pancho Tran MD Work Phone: [facility] 11-16-2024 09:59-0400 Body weight 117.[address] Pancho Tran MD Work Phone: [facility] 11-16-2024 09:59-0400 Diastolic blood pressure 82 mm[Hg] Dr. Pancho Tran MD Work Phone: [facility] 11-16-2024 09:59-0400 Heart rate 94 /min Dr. Pancho Tran MD Work Phone: [facility] 11-16-2024 09:59-0400 Respiratory rate 16 /min Dr. Pancho Tran MD Work Phone: [facility] 11-16-2024 09:59-0400 SaO2% (BldA) [Mass fraction] 96 % Dr. Pancho Tran MD Work Phone: [facility] 11-16-2024 09:59-0400 Systolic blood pressure 138 mm[Hg] Dr. Pancho Tran MD Work Phone: [facility] 07-08-2024 10:35-0400 Body temperature 98 [degF] Sandra Ungerer [employer]C Work Phone: [facility] 07-08-2024 10:35-0400 Diastolic blood pressure 83 mm[Hg] Sandra Ungerer [employer] Work Phone: [facility] 07-08-2024 10:35-0400 Heart rate 82 /min Sandra Ungerer [employer] Work Phone: [facility] 07-08-2024 10:35-0400 Respiratory rate 18 /min Sandra Ungerer [employer]C Work Phone: [facility] 07-08-2024 10:35-0400 SaO2% (BldA) [Mass fraction] 97 % Sandra Ungerer [employer]-C Work Phone: [facility] 07-08-2024 10:35-0400 Systolic blood pressure 125 mm[Hg] Sandra Ungerer [employer]-C Work Phone: [facility] 07-07-2024 14:19-0400 Body height 170.18 cm Sandra Ungerer [employer]C Work Phone: [facility] 07-07-2024 14:19-0400 Body weight 109.9 kg Sandra Ungerer [employer]C Work Phone: [facility] 07-07-2024 00:40-0400 Body mass index (BMI) [Ratio] 37.9 kg/m2 Sandra Ungerer [employer]C Work Phone: [facility] 07-06-2024 23:01-0400 Body temperature 97.9 [degF] Sandra Ungerer [employer]-C Work Phone: [facility] 07-06-2024 23:01-0400 Diastolic blood pressure 95 mm[Hg] Sandra Ungerer [employer]BER[employer]C Work Phone: [facility] 07-06-2024 23:01-0400 Heart rate 87 /min Sandra Ungerer [employer]C Work Phone: [facility] 07-06-2024 23:01-0400 Respiratory rate 24 /min Sandra Ungerer [employer]C Work Phone: [facility] 07-06-2024 23:01-0400 SaO2% (BldA) [Mass fraction] 100 % Sandra Ungerer [employer]-C Work Phone: [facility] 07-06-2024 23:01-0400 Systolic blood pressure 125 mm[Hg] Sandra Ungerer [employer]C Work Phone: [facility] 07-06-2024 17:46-0400 Body height 170.18 cm Sandra Ungerer [employer]BER[employer]C Work Phone: [facility] 07-06-2024 17:46-0400 Body mass index (BMI) [Ratio] 37.8 kg/m2 Sandra Ungerer [employer]C Work Phone: [facility] 07-06-2024 17:46-0400 Body weight 109.5 kg Sandra Ungerer [employer]C Work Phone: [facility] 07-06-2024 10:55-0400 Body height 170.18 cm Sandra Ungerer [employer]BER-C Work Phone: [facility] 07-06-2024 10:55-0400 Body mass index (BMI) [Ratio] 37.4 kg/m2 Sandra Ungerer [employer]C Work Phone: [facility] 07-06-2024 10:55-0400 Body temperature 96.9 [degF] Sandra Ungerer [employer]C Work Phone: [facility] 07-06-2024 10:55-0400 Body weight 108.4 kg Sandra Ungerer [employer]BER-C Work Phone: [facility] 07-06-2024 10:55-0400 Diastolic blood pressure 78 mm[Hg] Sandra Ungerer [employer]C Work Phone: [facility] 07-06-2024 10:55-0400 Heart rate 101 /min Sandra Ungerer [employer]BER[employer]C Work Phone: [facility] 07-06-2024 10:55-0400 Respiratory rate 16 /min Sandra Ungerer [employer]BER[employer]C Work Phone: [facility] 07-06-2024 10:55-0400 SaO2% (BldA) [Mass fraction] 98 % Sandra Ungerer [employer]C Work Phone: [facility] 07-06-2024 10:55-0400 Systolic blood pressure 118 mm[Hg] Sandra Ungerer [employer]C Work Phone: [facility] 07-06-2024 09:45-0400 Body height 170.18 cm Sandra Ungerer [employer]BER[employer]C Work Phone: [facility] 07-06-2024 09:45-0400 Body mass index (BMI) [Ratio] 37.5 kg/m2 Sandra Ungerer [employer]C Work Phone: [facility] 07-06-2024 09:45-0400 Body weight 108.57 kg Sandra Ungerer [employer]C Work Phone: [facility] 07-06-2024 09:45-0400 Diastolic blood pressure 85 mm[Hg] Sandra Ebonyerer [employer]BER[employer]C Work Phone: [facility] 07-06-2024 09:45-0400 Heart rate 102 /min Sandra Ebonyerer [employer]BER[employer]C Work Phone: [facility] 07-06-2024 09:45-0400 SaO2% (BldA) [Mass fraction] 96 % Sandra Ebonyerer [employer]C Work Phone: [facility] 07-06-2024 09:45-0400 Systolic blood pressure 130 mm[Hg] Sandra Ebonyerer [employer]BER[employer]C Work Phone: [facility] 05-24-2024 12:15-0400 Body height 170.18 cm 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 Sandra Beckerer [employer]BER[employer]C Work Phone: [facility] 05-24-2024 12:11-0400 Body mass index (BMI) [Ratio] 39.1 kg/m2 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 Sandra Ungerer [employer]BER-C Work Phone: [facility] 05-24-2024 12:11-0400 Body weight 113.39 kg 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 Sandra Beckerer [employer]BER[employer]C Work Phone: [facility] 05-24-2024 12:11-0400 Diastolic blood pressure 77 mm[Hg] 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 Sandra Beckerer [employer]BER[employer]C Work Phone: [facility] 05-24-2024 12:11-0400 Systolic blood pressure 121 mm[Hg] 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 Sandra Ungerer [employer]BER-C Work Phone: [facility] 05-06-2024 13:01-0400 Diastolic blood pressure 77 mm[Hg] DANNY NEVAREZ MD Work Phone: [facility] 05-06-2024 13:01-0400 Heart rate 78 /min DANNY NEVAREZ MD Work Phone: [facility] 05-06-2024 13:01-0400 Respiratory rate 16 /min DANNY NEVAREZ MD Work Phone: [facility] 05-06-2024 13:01-0400 SaO2% (BldA) [Mass fraction] 96 % DANNY NEVAREZ MD Work Phone: [facility] 05-06-2024 13:01-0400 Systolic blood pressure 132 mm[Hg] DANNY NEVAREZ MD Work Phone: [facility] 05-06-2024 11:52-0400 Body height 170.18 cm DANNY NEVAREZ MD Work Phone: [facility] 05-06-2024 11:52-0400 Body temperature 97.9 [degF] DANNY NEVAREZ MD Work Phone: [facility] 05-06-2024 11:52-0400 Body weight 112.95 kg DANNY NEVAREZ MD Work Phone: [facility] 04-20-2024 15:31-0500 Body height 170.18 cm 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 Sandra Meredith [employer]BER[employer]C Work Phone: [facility] 04-20-2024 15:31-0500 Body mass index (BMI) [Ratio] 39.3 kg/m2 RESTAURANT TEAM MEMBEREssence Meredith [employer] TE[employer] MEMBER-C Work Phone: [facility] 04-20-2024 15:31-0500 Body temperature 98.1 [degF] NP. 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 Sandra Ungerer [employer]BER-C Work Phone: [facility] 04-20-2024 15:31-0500 Heart rate 87 /min 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 Sandra Ungerer [employer] TE[employer]BER-C Work Phone: [facility] 04-20-2024 15:31-0500 Respiratory rate 16 /min 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 Sandra Ungerer [employer] TE[employer] MEMBER-C Work Phone: [facility] 04-20-2024 15:31-0500 SaO2% (BldA) [Mass fraction] 97 % 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 Sandra Ungerer [employer] TE[employer]BER-C Work Phone: [facility] 04-13-2024 09:43-0500 Body mass index (BMI) [Ratio] 38.9 kg/m2 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 Sandra Ungerer [employer]BER-C Work Phone: [facility] 04-13-2024 09:43-0500 Body weight 112.94 kg 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 Sandra Ungerer [employer] TE[employer]BER[employer]C Work Phone: [facility] 04-13-2024 09:43-0500 Diastolic blood pressure 85 mm[Hg] 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 Sandra Ungerer [employer] TE[employer] MEMBER-C Work Phone: [facility] 04-13-2024 09:43-0500 Heart rate 81 /min 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 Sandra Ungerer [employer] TE[employer] MEMBER-C Work Phone: [facility] 04-13-2024 09:43-0500 SaO2% (BldA) [Mass fraction] 97 % 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 Sandra Ungerer [employer] TE[employer] MEMBER-C Work Phone: [facility] 04-13-2024 09:43-0500 Systolic blood pressure 142 mm[Hg] 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 Sandra Ungerer [employer] TE[employer] MEMBER-C Work Phone: [facility] 01-10-2024 10:09-0500 Body mass index (BMI) [Ratio] 38.9 kg/m2 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 Sandra Gomezr [employer]BER[employer]C Work Phone: [facility] 01-10-2024 10:09-0500 Body weight 112.66 kg 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 Sandra Gomezr [employer]ANT TE[employer] MEMBER-C Work Phone: [facility] 01-10-2024 10:09-0500 Diastolic blood pressure 82 mm[Hg] 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 Sandra Gomezr [employer]ANT TE[employer] MEMBER-C Work Phone: [facility] 01-10-2024 10:09-0500 Heart rate 87 /min 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 Sandra Gomezr [employer]ANT TE[employer] MEMBER-C Work Phone: [facility] 01-10-2024 10:09-0500 SaO2% (BldA) [Mass fraction] 98 % 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 Sandra Gomezr [employer]ANT TE[employer] MEMBER-C Work Phone: [facility] 01-10-2024 10:09-0500 Systolic blood pressure 131 mm[Hg] 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 Sandra Gomezr [employer]ANT TE[employer] MEMBER-C Work Phone: [facility] 01-04-2023 10:55-0500 Body height 170.[address] Ivone Hurtado Work Phone: [facility] 01-04-2023 10:55-0500 Body mass index (BMI) [Ratio] 41.5 kg/m2 Dr. Ivone Hurtado Work Phone: [facility] 01-04-2023 10:55-0500 Body weight 120.[address] Ivone Hurtado Work Phone: [facility] 11-13-2022 09:01-0400 Body mass index (BMI) [Ratio] 40.7 kg/m2 Dr. Ivone Hurtado Work Phone: [facility] 11-13-2022 09:01-0400 Body weight 118.[address] Ivone Hurtado Work Phone: [facility] 05-27-2021 15:57-0400 Body height 170.[address] Ivone Hurtado Work Phone: [facility] Work Phone: 05-27-2021 15:57-0400 Body mass index (BMI) [Ratio] 41.1 kg/m2 Dr. Ivone Hurtado Work Phone: [facility] Work Phone: 05-27-2021 15:57-0400 Body weight 119.[address] Ivone Hurtado Work Phone: [facility] Work Phone: 05-27-2021 15:57-0400 Diastolic blood pressure 90 mm[Hg] Dr. Ivone Hurtado Work Phone: [facility] Work Phone: 05-27-2021 15:57-0400 Systolic blood pressure 130 mm[Hg] Dr. Ivone Hurtado Work Phone: [facility] Work Phone: 05-20-2021 08:50-0400 Diastolic blood pressure 98 mm[Hg] Dr. Ivone Hurtado Work Phone: [facility] Work Phone: 05-20-2021 08:50-0400 Systolic blood pressure 166 mm[Hg] Dr. Ivone Hurtado Work Phone: [facility] Work Phone: 05-20-2021 08:17-0400 Body mass index (BMI) [Ratio] 41.5 kg/m2 Dr. Ivone Hurtado Work Phone: [facility] Work Phone: 05-20-2021 08:17-0400 Body weight 120.[address] Ivone Hurtado Work Phone: [facility] Work Phone: Encounters Encounter Date Encounter Type Care Provider Facility Start: 11-16-2024 End: 11-16-2024 Patient encounter procedure Sandra Ungerer [employer]C -[facility] Work Phone: Start: 11-16-2024 End: 11-16-2024 ambulatory Pancho Tran Facility:[facility] Start: 09-22-2024 ambulatory SANDRA [employer] TE[employer] [facility] Start: 09-22-2024 Encounter for other preprocedural examination SANDRA [employer] [facility] Start: 07-08-2024 Non-patient / Non-visit Dr. Liza Sargent MD -[facility] Work Phone: Start: 07-07-2024 ambulatory Alejandra Weiner Facility :[facility] Start: 07-07-2024 End: 07-08-2024 Evaluation and management of inpatient Dr. Cate Sargent MD -[facility] Work Phone: Start: 07-07-2024 Non-patient / Non-visit Dr. Ishaan Weiner MD -[facility] Work Phone: Start: 07-06-2024 End: 07-08-2024 ambulatory Cate Sargent Facility:[facility] Start: 07-06-2024 Evaluation and management of inpatient Dr. Alejandra Weiner MD -[facility] Work Phone: Start: 07-06-2024 observation encounter Sandra Ebonyerer [employer]C Work Phone: [facility] Work Phone: Start: 07-06-2024 End: 07-06-2024 ambulatory Sandra Ungerer [employer]C Work Phone: [facility] Work Phone: Start: 07-06-2024 End: 07-06-2024 Patient encounter procedure Manan Escobar PA -[facility] Start: 07-06-2024 End: 07-06-2024 Patient encounter procedure Caitlin Tilley [employer]C -[facility] Work Phone: Start: 07-06-2024 End: 07-06-2024 ambulatory Sandra Meredith [employer]C Work Phone: [facility] Work Phone: Start: 07-06-2024 End: 07-06-2024 ambulatory [facility] Facility:[facility] Start: 06-01-2024 End: 06-01-2024 ambulatory 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 Sandra Meredith [employer]C Work Phone: [facility] Work Phone: Start: 06-01-2024 End: 06-01-[address] Pancho Tran MD -Outpatient [facility] Work Phone: Start: 06-01-2024 End: 06-01-2024 ambulatory [facility] Facility:[facility] Start: 05-25-2024 End: 05-25-2024 ambulatory [employer] MEM[employer]EREssence Meredith [employer]C Work Phone: [facility] Work Phone: Start: 05-25-2024 End: 05-25-2024 Patient encounter procedure Pam Small CNM -Laboratory, Specimen Work Phone: Start: 05-24-2024 Encounter for gynecological examination (general) (routine) without abnormal findings Pam Small [facility] Start: 05-24-2024 End: 05-24-2024 Patient encounter procedure Pam Small CNM -[facility] Start: 05-24-2024 End: 05-24-2024 Patient encounter status Pam Small CNM [facility] Start: 05-24-2024 End: 05-25-2024 ambulatory [facility] Facility:[facility] Start: 05-06-2024 End: 05-06-2024 ambulatory DANNY NEVAREZ Facility: Start: 05-06-2024 End: 05-06-2024 Emergency department patient visit DANNY NEVAREZ MD Work Phone: [facility] Start: 04-20-2024 Encounter for genera l adult medical examination [facility] Start: 04-20-2024 End: 04-20-[address] Pancho Tran MD -[facility] Work Phone: Start: 04-20-2024 End: 04-20-[address] Pancho Tran MD [facility] Start: 04-20-2024 End: 04-20-2024 ambulatory 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 Sandra Meredith [employer]C Work Phone: [facility] Work Phone: Start: 04-20-2024 End: 04-20-2024 ambulatory [facility] Facility:[facility] Start: 04-13-2024 End: 04-13-2024 Patient encounter procedure Caitlin Tilley [employer]-C -[facility] Work Phone: Start: 04-13-2024 End: 04-13-2024 ambulatory Caitlin Tilley Facility:[facility] Start: 01-10-2024 End: 01-10-2024 Patient encounter procedure Caitlin Tilley [employer]C -[facility] Work Phone: Start: 01-10-2024 End: 01-10-2024 ambulatory Sandra Meredith Facility:[facility] Start: 01-10-2024 End: 01-10-2024 ambulatory Caitlin Tilley Facility:[facility] Start: 12-01-2023 End: 12-01-2023 ambulatory Sandra Meredith Facility:[facility] Start: 11-02-2023 End: 12-14-2023 amb[facility] Start: 06-16-2023 ambulatory SANDRA MEREDITH [facility] y:[facility] Start: 06-16-2023 End: 06-16-2023 Office consultation new/estab patient 60 min Tiffany Beaver MD Work Phone: [facility] Comment on above: Left hip pain (Prima ry Dx) Start: 06-16-2023 End: 06-16-2023 Subsequent hospital visit by physician Tiffany Beaver MD Work Phone: Imaging [facility] Comment on above: Arrived Start: 01-18-2023 End: 01-18-[address] Ivone Hurtado Work Phone: [facility] Work Phone: Start: 01-18-2023 End: 01-18-[address] Ivone Hurtado Work Phone: [facility] Work Phone: Start: 01-07-2023 End: 01-07-[address] Ivone Hurtado Work Phone: [facility] Work Phone: Start: 01-04-2023 End: 01-04-[address] Ivone Hurtado Work Phone: [facility] Work Phone: Start: 12-25-2022 End: 12-25-[address] Ivone Hurtado Work Phone: [facility] Work Phone: Start: 11-27-2022 End: 11-27-[address] Ivone Hurtado Work Phone: [facility] Work Phone: Start: 11-13-2022 End: 11-13-[address] Ivone Hurtado Work Phone: [facility] Work Phone: Start: 05-27-2021 End: 05-27-[address] Ivone Hurtado Work Phone: [facility] Start: 05-27-2021 End: 05-27-[address] Ivone Hurtado Work Phone: [facility]trasound, [facility] Start: 05-20-2021 End: 05-20-[address] Ivone Hurtado Work Phone: [facility]-Laboratory, Specimen Start: 05-20-2021 End: 05-20-[address] Ivone Hurtado Work Phone: [facility] Start: 02-09-2018 Patient encounter procedure MANE SMITH Facility:[facility] Start: 01-28-2018 End: 01-28-2018 Patient encounter procedure MANE SMITH Facility:[facility] Procedures Date Procedure Procedure Detail Performing Clinician Start: 07-08-2024 Estimated creatinine clearance Sandra Ungerer [employer] Work Phone: Start: 07-08-2024 Reactive lymphocyte count Sandra Ungerer [employer] Work Phone: Start: 07-07-2024 Iadna-dna/rna gi pth gn multiplex probe tq 6-11 Sandra Ungerer [employer] Work Phone: Start: 07-07-2024 Nucleic acid assay Kateryna ica Ungerer [employer] Work Phone: Start: 07-07-2024 Serum inorganic phos phate measurement Sandra Ungerer [employer] Work Phone: Start: 07-06-2024 Urnls dip stick/tabl et reagent auto microscopy Sandra Ungerer [employer] Work Phone: Start: 07-06-2024 Oxygen measurement Kateryna ica Ungerer [employer] Work Phone: Start: 07-06-2024 Computed tomography of abdomen and pelvis with intravenous contrast Sandra Ungerer [employer] Work Phone: Start: 07-06-2024 Estimated creatinine clearance Sandra Meredith [employer] Work Phone: Start: 07-06-2024 Vitamin D, 25-hydrox y measurement Sandra Meredith [employer] Work Phone: Comment on above: Vitamin D StatusDefi ciency: <20 ng/mL (50nmol/L)Insufficiency: 20-30 ng/mL (50-75 nmol/L)Sufficiency: 30-100 ng/mL (75-250 nmol/L)Toxicity: >100 ng/mL (>250 nmol/L) Start: 06-01-2024 Dual energy X-ray absorptiometry 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 Sandra Meredith [employer] Work Phone: Start: 06-01-2024 Screening mammography N P. Sandra Meredith [employer]BER- Work Phone: Start: 05-25-2024 Liquid based cervica l cytology screening Sandra Meredith [employer]- Work Phone: Comment on above: EPITHELIAL CELL [...] Activity Detail Author Start: 07-08-2024 Patient discharge [facility] Start: 07-07-2024 Admission procedure [facility] Start: 07-07-2024 Hepatic function panel [facility] Start: 07-07-2024 Prothrombin time [facility] Start: 07-07-2024 Serum inorganic phosphate measurement [facility] Start: 07-07-2024 Thyroid stimulating hormone measurement [facility] Start: 07-07-2024 Enteric precautions [facility] Start: 07-07-2024 Following clinical pathway protocol [facility] Start: 07-07-2024 Inhalation therapy procedure [facility] Start: 07-07-2024 [facility] Start: 07-06-2024 Admission procedure [facility] Start: 07-06-2024 Assessment of risk of venous thromboembolism [facility] Start: 07-06-2024 Insertion of catheter into peripheral vein [facility] Start: 07-06-2024 End: 07-07-2024 Patient referral to dietitian [facility] Start: 07-06-2024 Providing care according to standard [facility] Start: 07-06-2024 Verification routine [facility] Start: 07-06-2024 [facility] Start: 07-06-2024 Hospital admission, emergency, from emergency room, medical nature [facility] Start: 07-06-2024 CBC W Auto Differential panel - Blood [facility] Start: 07-06-2024 Comprehensive metabolic 2000 panel - Serum or Plasma [facility] Start: 07-06-2024 Lipid 1996 panel - Serum or Plasma [facility] Start: 07-06-2024 T4 free measurement [facility] Start: 07-06-2024 Thyroid stimulating hormone measurement [facility] Start: 07-06-2024 Triiodothyronine, free measurement [facility] Start: 07-06-2024 Vitamin D, 25-hydroxy measurement [facility] Start: 05-25-2024 Liquid based cervical cytology screening [facility] Start: 04-20-2024 Patient referral [facility] Work Phone: Start: 10-24-2023 Influenza vaccination INFLUENZA VACCINE (Season Ended) [facility] Start: 07-21-2023 End: 07-21-2023 Patient encounter procedure 07/21/2023 9:20 AM EDT Office Visit [facility] [address] [place] [address] Jackson Campuzano, DO [address] [place] [id number] [facility] Start: 01-04-2023 Patient referral [facility] Work Phone: Start: 11-27-2022 Patient referral [facility] Work Phone: Start: 10-23-2022 COVID-19 VACCINE ( season) COVID-19 VACCINE ( season) [facility] Start: 05-27-2018 Hepatitis B vaccination HEP B VACCINE (2 of 3 - 19+ 3-dose series) [facility] Start: 2012 Zoster vaccine hzv live for subcutaneous use ZOSTER (SHINGLES) VACCINE (1 of 2) [facility] Start: 12-05-2007 Screening for malignant neoplasm of colon COLORECTAL CANCER SCREENING DISCUSSION [facility] Start: 2002 Lipid panel LIPID SCREENING [facility] Start: 2002 Screening for malignant neoplasm of breast MAMMOGRAM SCREENING DISCUSSION [facility] Start: 12-05-1983 Screening for malignant neoplasm of cervix CERVICAL CANCER SCREENING DISCUSSION [facility] Start: 1981 Third diphtheria, tetanus and acellular pertussis (DTaP) vaccination TDAP (ADULT) [facility] Start: 1977 HIV screening HIV SCREENING DISCUSSION [facility] Start: 1962 Hepatitis C screening HEPATITIS C VIRUS SCREENING [facility] Start: 1962 Tetanus vaccination TETANUS [facility] Alanine aminotransfe rase [Enzymatic activity/volume] in Serum or Plasma [facility] Alanine aminotransfe rase [Enzymatic activity/volume] in Serum or Plasma [facility] Albumin [Mass/volume ] in Serum or Plasma [facility] Albumin [Mass/volume ] in Serum or Plasma [facility] Alkaline phosphatase [Enzymatic activity/volume] in Serum or Plasma [facility] Alkaline phosphatase [Enzymatic activity/volume] in Serum or Plasma [facility] Anion gap in Serum o r Plasma [facility] Anion gap in Serum o r Plasma [facility] Bilirubin, total measurement [facility] Bilirubin, total measurement [facility] Bilirubin.direct [Mass/volume] in Serum or Plasma [facility] BUN/Creatinine ratio [facility] BUN/Creatinine ratio [facility] Calcium [Mass/volume ] in Serum or Plasma [facility] Calcium [Mass/volume ] in Serum or Plasma [facility] Carbon dioxide, tota l [Moles/volume] in Central venous blood [facility] Carbon dioxide, tota l [Moles/volume] in Central venous blood [facility] Cholesterol [Mass/vo lume] in Serum or Plasma [facility] Cholesterol in HDL [Mass/volume] in Serum or Plasma [facility] Clostridioides diffi cile DNA [Presence] in Unspecified specimen by VERONICA with probe detection [facility] Comprehensive metabo lic 2000 panel - Serum or Plasma [facility] Creatinine [Mass/vol ume] in Serum or Plasma [facility] Creatinine [Mass/vol ume] in Serum or Plasma [facility] Cytology report of Cervical or vaginal smear or scraping Cyto stain.thin prep [facility] DXA Bone [Mass/Area] Bone density [facility] Erythrocyte mean corpuscular volume determination [facility] Erythrocyte mean corpuscular volume determination [facility] Glucose [Mass/volume ] in Serum or Plasma [facility] Glucose [Mass/volume ] in Serum or Plasma [facility] Hematocrit [Volume Fraction] of Blood [facility] Hematocrit [Volume Fraction] of Blood [facility] Hemoglobin [Mass/vol ume] in Blood [facility] Hemoglobin [Mass/vol ume] in Blood [facility] INR in Blood by Coagulation assay [facility] Leukocytes [#/volume ] in Blood [facility] Leukocytes [#/volume ] in Blood [facility] Lipid 1996 panel - S alhaji or Plasma [facility] Low density lipoprot ein cholesterol measurement [facility] Magnesium measurement [facility] Mean corpuscular hemoglobin concentration determination [facility] Mean corpuscular hemoglobin concentration determination [facility] Mean corpuscular hemoglobin determination [facility] Mean corpuscular hemoglobin determination [facility] Measurement of renal function [facility] Measurement of renal function [facility] MG Breast - bilatera l Screening [facility] Neutrophil count [facility] Neutrophil count [facility] Neutrophil percent differential count [facility] Neutrophil percent differential count [facility] Nucleic acid assay [facility] Path report.final Dx Spec [facility] Patient Education [facility] Work Phone: Patient referral [facility] Work Phone: Platelets [#/volume] in Blood [facility] Platelets [#/volume] in Blood [facility] Potassium measurement [facility] Potassium measurement [facility] Red blood cell count [facility] Red blood cell count [facility] Red cell distributio n width determination [facility] Red cell distributio n width determination [facility] Serum chloride measurement [facility] Serum chloride measurement [facility] Sodium measurement [facility] Sodium measurement [facility] T4 free measurement [facility] Thyroid stimulating hormone measurement [facility] Total cholesterol:HD L ratio measurement [facility] Total protein measurement [facility] Total protein measurement [facility] Triglycerides measurement [facility] Triiodothyronine, fr ee measurement [facility] Urea nitrogen [Mass/volume] in Serum or Plasma [facility] Urea nitrogen [Mass/volume] in Serum or Plasma [facility] Urine microalbumin/creatinine ratio measurement [facility] Vitamin D, 25-hydrox y measurement [facility] VLDL cholesterol measurement [facility] Immunizations Immunization Date Immunization Notes Care Provider Fa kezia 06-04-2020 Covid (Fluid) Sandra lowe [employer] Work Phone: [facility] 05-10-2020 Covid (Fluid) Sandra lowe [employer]C Work Phone: [facility] 11-06-2019 pneumococcal polysaccharide vaccine, 23 valent Sandra Eliu [employer]C Work Phone: [facility] Payers Date Payer Category Payer Unknown [id number] 2023 Self-pay [id number] 2023 Unknown [id number] 2023 Unknown MIKE MALIN [facility] [id number] 2023-Present [address] [place] [address] [id number] 1960 Unknown [id number] 1960 Unknown [id number] 2.840.1.387362.3.579.2.594 1960 Unknown [id number] 2..840.1.962478.3.579.2.651 Unknown [id number] Unknown [id number] Unknown [id number] 2..840.1.189780.3.579.2.283 Unknown [id number] 2..840.1.342037.3.579.2.283 Unknown [id number] Unknown [id number] 2..840.1.963578.3.579.2.528 Unknown [id number] 2.16.840.1.768691.3.579.2.462 Unknown [id number] 2.16.840.1.145104.3.579.2.462 Unknown [id number] 2.16.840.1.372767.3.579.2.462 Unknown [id number] 2.16.840.1.599203.3.579.2.462 Unknown [id number] 2.16.840.1.864663.3.579.2.462 Unknown [id number] 2.16.840.1.338869.3.579.2.462 Unknown [id number] 2.16.840.1.535449.3.579.2.462 Unknown [id number] 2.16.840.1.632027.3.579.2.462 Unknown [id number] 2.16.840.1.810571.3.579.2.462 Unknown [id number] 2.16.840.1.320445.3.579.2.462 Unknown [id number] 2.16.840.1.427311.3.579.2.462 Unknown [id number] 2.16.840.1.308876.3.579.2.462 Unknown [id number] 2.16.840.1.675903.3.579.2.462 Unknown [id number] 2.16.840.1.446039.3.579.2.462 Unknown [id number] 2.16.840.1.841999.3.579.2.462 Unknown [id number] 2.16.840.1.359114.3.579.2.462 Unknown [id number] 2.16.840.1.669482.3.579.2.462 Social History Date Type Detail Facility Start: 05-27-2021 End: 01-07-2023 Tobacco smoking status NCIS Unknown if ever smoked [facility] Start: 1960 Sex Assigned At Female [facility] Start: 06-16-2023 End: 07-07-2024 Tobacco smoking status NHIS Never smoked tobacco [facility] Start: 06-16-2023 Tobacco use and exposure Smokeless tobacco non-user [facility] Start: 06-16-2023 History of Social function [facility] Start: 06-16-2023 Tobacco use panel [facility] Start: 1960 Sex assigned at Not on file O [facility] Start: 05-04-2024 End: 06-06-2024 Sex Female (finding) [facility] Start: 05-06-2024 Never Never [facility] Start: 05-06-2024 No No [facility] Medical Equipment Procedure Code Equipment Code Equipment Origin al Text Equipment Identifier Dates Arthroplasty, hip, total, using robot-assisted navigation ([id number]) Ceramic femoral head prosthesis ()[id number] FDA Start: 10-19-2023 Arthroplasty, hip, total, using robot-assisted navigation ([id number]) Coated hip femur prosthesis, modular ()[id number] FDA Start: 10-19-2023 Arthroplasty, hip, total, using robot-assisted navigation ([id number]) Non-constrained polyethylene acetabular liner ()[id number] FDA Start: 10-19-2023 Arthroplasty, hip, total, using robot-assisted navigation ([id number]) Acetabular shell ()[id number] FDA Start: 10-19-2023 Arthroplasty, hip, total, using robot-assisted navigation ([id number]) Orthopaedic bone screw, non-bioabsorbable, sterile ()[id number] FDA Start: 10-19-2023 Start: 01-28-2023 Blood Sugar [...] Assessment Result Facility 07-08-2024 Functional status Ambulates [facility] Work Phone: Mental Status Date Assessment Result Facility 07-08-2024 Cognitive function Voice/Name [facility] Work Phone: 07-06-2024 Cognitive function Level Of Cons ciousness Awake;Alert;Appropriate;Follow s Commands [facility] Work Phone: 05-06-2024 Cognitive function Level Of Cons ciousness Awake;Alert;Appropriate;Follow s Commands [facility] Work Phone: Clinical Notes 06-16-2023 to 11-16-2024 Note Date & Type Note Facility 11-16-2024 Progress note [facility] 07-08-2024 Note [facility] Medical Records Department [address] [place] [address] Discharge Summary 07/08/24 1014 MR#: [id number] Acct: [id number] Name: LIGIA RIVAS Rep #: [id number] : 1960 63 From: Cate Sargent MD PCP: Dr. Pancho Trna MD Status:DIS IN Location: [place] [id number] Providers Date of Admission: 07/07/24 Date of Discharge: 07/08/24 Primary Care Physician: Dr. Pancho Tran MD Reason For Visit: METABOLIC ACIDOSIS Diagnosis Discharge Diagnosis (1) Hyponatremia: Status: Acute Code(s): E87.1 - Hypo-osmolality and hyponatremia (2) Diarrhea: Status: Acute Code(s): R19.7 - Diarrhea, unspecified (3) Acute kidney injury: Status: Acute Code(s): N17.9 - Acute kidney failure, unspecified Plan # ERNIE: Resolved. Patient hydrated with [...] of breath or wheezing 05/20/21 blood-glucose transmitter (Picket G6 Transmitter device) #1 ea 01/04/23 trazodone [...] DAILY #60 tabs 03/14/24 blood sugar diagnostic (Truly WirelessTouch Ultra Test strips) #100 ea 04/13/24 cholecalciferol [...] movement, no ret (more content not included)... [facility] 07-08-2024 Discharge summary [facility] 07-07-2024 Progress note Note Date/Time July 07, 2024 4:43pm [facility] Medical Records Department [address] [place], [place] [address] Progress Note 07/07/24 1411 MR#: [id number] Acct: [id number] Name: LIGIA RIVAS Rep #:[id number] : 1960 63 From: Cate Sargent MD PCP: Dr. Pancho Tran MD Status:A DM IN Location: [place] [address] Subjective Subjective Patient seen and examined. She [...] Neut % (Auto) 56.3, Lymph % (Auto) 32.3,Bristol % (Auto) 9.9, Eos % (Auto) 0.7, [...] Clarity Clear, Urine pH 5.0, Ur Specific [place] 1.025, Urine Protein 30 H, Urine Glucose [...] (Auto) 44.8 L, Lymph % (Auto) 43.3 H,Bristol % (Auto) 9.6, Eos % (Auto) 1.7, [...] diverticulosis. 3. Multivessel coronary calcifications. Reading Location: [facility] Physical Exam Const alert, oriented x3 and [...] prophylaxis: SCDs Charges/Coding Visit Charges Inpatient E&M: 70514 Subs Hosp L2 07/07/24 1643 <Electronically signed by Cate Sargent MD> Cate Sargent MD Cosigner Signature (if applicable): CC: ~ Signed [facility] Work Phone: 1(510) 481-279105-16-2025 Progress note [facility] Medical Records Department [address] [place] [address] Progress Note 07/07/24 1411 MR#: [id number] Acct: [id number] Name: LIGIA RIVAS Rep #:[id number] : 1960 63 From: Cate Sargent MD PCP: Dr. Pancho Tran MD Status:A DM IN Location: [place] [address] Subjective Subjective Patient seen and examined. She [...] Neut % (Auto) 56.3, Lymph % (Auto) 32.3,Bristol % (Auto) 9.9, Eos % (Auto) 0.7, [...] Clarity Clear, Urine pH 5.0, Ur Specific [place] 1.025, Urine Protein 30 H, Urine Glucose [...] %(Auto) 44.8 L, Lymph % (Auto) 43.3 H,Bristol % (Auto) 9.6, Eos % (Auto) 1.7, [...] diverticulosis. 3. Multivessel coronary calcifications. Reading Location: [facility] Physical Exam Const alert, oriented x3 and [...] prophylaxis: SCDs Charges/Coding Visit Charges Inpatient E&M: 41634 Subs Hosp L2 07/07/24 1643 Cate Sargent MD Cosigner Signature (if applicable): CC: ~ Signed [facility]05-16-2025 History and physical note Author Alejandra Weiner [facility] Note Date/Time July 07, 2024 12:34 am [facility] Medical Records Department [address] [place] [address] H&P Exam - Hospitalist 07/07/24 0007 MR#: [id number] Acct: [id number] Name: LIGIA RIVAS Rep #:[id number] : 1960 63 From: Alejandra Weiner MD PCP: Dr. Pancho Tran MD Status:A DM YECENIA Location: [place] [address] HPI - General General Date of Admission: [...] negative. POC glucose was 134 [facility] Medical History Anxiety and depression Health care [...] 3 current occupational status: employed current occupation: [employer] living pets and animals: Yes pets and [...] physical activity do you participate in: none jered/adventist: Taoist seatbelt use: sometimes do you feel safe [...] Neut % (Auto) 56.3, Lymph % (Auto) 32.3,Bristol % (Auto) 9.9, Eos % (Auto) 0.7, [...] Clarity Clear, Urine pH 5.0, Ur Specific [place] 1.025, Urine Protein 30 H, Urine Glucose [...] diverticulosis. 3. Multivessel coronary calcifications. Reading Location: [id number] Assessment & Plan Assessment/Plan (1) Acute kidney [...] Weiner MD; Dr. Pancho Tran MD~ Signed [facility] Work Phone: 1(732) 127-282905-16-2025 Discharge summary Author [facility]hendra [facility] Note Date/Time July 06, 2024 11:04 pm [facility] Medical Records Department [address] [place] [address] Emergency Department Summary 07/06/24 MR#: [id number] Acct: [id number] Name: LIGIA RIVAS Rep #:[id number] : 1960 63 From: Mahendra Devine MD PCP: Dr. Pancho Tran MD Status:R EG ER Location: ED ADDENDUM by Dr. Mahendra Devine MD on 07/06/24 at 2303 EKG was obtained and interpreted by myself independently as sinus tachycardia at103 [address] changes. No STEMI. 07/06/24 2303<Electronically signed by Mahendra eDvine MD> Cosigner Signature (if applicable): cc: Dr. [...] fatigued with low energy. She saw her electrical assistant today, and had laboratory work drawn. She states that they are trying to wean her off Ozempic and insulin. She states that her blood sugars have been controlled recently. She does have type 2 diabetes, but was told that there is concerned that she has metabolic acidosis. This was based off the laboratory work that was drawn today. [facility] Medical History Anxiety and depression Health care [...] 3 current occupational status: employed current occupation: [employer] living pets and animals: Yes pets and [...] physical activity do you participate in: none jered/adventist: Taoist seatbelt use: sometimes do you feel safe [...] % (Auto) 56.3 Lymph % (Auto) 32.3 Bristol % (Auto) 9.9 Eos % (Auto) 0.7 [...] Clarity Clear Urine pH 5.0 Ur Specific [place] 1.025 Urine Protein 30 H Urine Glucose [...] (Auto) Neut % (Auto) Lymph % (Auto) [place] % (Auto) Eos % (Auto) Baso % (Auto) Absolute Neuts (auto) Absolute Lymphs (auto) Nucleated RBC % Sodium Potassium Chloride Carbon Dioxide Anion Gap BUN Creatinine Estim Creat Clear Calc Est GFR (MDRD) Non-Af BUN/Creatinine Ratio Glucose Calcium Total Bilirubin AST ALT Alkaline Phosphatase Total Protein Albumin Globulin Albumin/Globulin Ratio b-Hydroxybutyric mmol/L Urine Color Urine Clarity Urine pH Ur Specific [place] Urine Protein Urine Glucose (UA) Urine Ketones [...] diverticulosis. 3. Multivessel coronary calcifications. Reading Location: [id number] Management Discussion w/another healthcare provider: Hospitalist (Dr. Weiner) Discharge Plan Dx/Rx/DC Orders Clinical Impression: Diarrhea, Hyponatremia, Acute kidney injury Disposition Disposition: Acute Care Hospital [facility] What to do if you have Problems For any increased pain, shortness of breath, bleeding, nausea or vomiting, chestpain, or any unexpected problems, contact your Primary Care Provider. Call [facility] ([phone]) or report to the closest Emergency Room. Call 911 if necessary. 07/06/242302 <Electronically signed by Mahendra Devine MD> Cosigner Signature (if applicable): CC: Dr. Pancho Tran MD ~ Signed [facility] Work Phone: 1(862) 790-256305-16-2025 History and physical note [facility] Medical Records Department [address] [place] [address] H&P Exam - Hospitalist 07/07/24 0007 MR#: [id number] Acct: [id number] Name: LIGIA RIVAS Rep #:[id number] : 1960 63 From: Alejandra Weiner MD PCP: Dr. Pancho Tran MD Status:A DM YECENIA Location: [place] [address] HPI - General General Date of Admission: [...] negative. POC glucose was 134 [facility] Medical History Anxiety and depression Health care [...] 3 current occupational status: employed current occupation: [employer] living pets and animals: Yes pets and [...] physical activity do you participate in: none jered/adventist: Taoist seatbelt use: sometimes do you feel safe [...] Neut % (Auto) 56.3, Lymph % (Auto) 32.3,Bristol % (Auto) 9.9, Eos % (Auto) 0.7, [...] Clarity Clear, Urine pH 5.0, Ur Specific [place] 1.025, Urine Protein 30 H, Urine Glucose [...] diverticulosis. 3. Multivessel coronary calcifications. Reading Location: [id number] Assessment & Plan Assessment/Plan (1) Acute kidney [...] Weiner MD; Dr. Pancho Tran MD~ Signed [facility]05-15-2025 Discharge summary [facility] Medical Records Department [address] [place] [address] Emergency Department Summary 07/06/24 MR#: [id number] Acct: [id number] Name: LIGIA RIVAS Rep #:[id number] : [...] fatigued with low energy. She saw her electrical assistant today, and had laboratory work drawn. She states that they are trying to wean her off Ozempic and insulin. She states that her blood sugars have been controlled recently. She does havetype 2 diabetes, but was told that there is concerned that she has metabolic acidosis. This was based off the laboratory work that was drawn today. [facility] Medical History Anxiety and depression Health care [...] physical activity do you participate in: none jered/adventist: Taoist seatbelt use: sometimes do you feel safe [...] % (Auto) 56.3 Lymph % (Auto) 32.3 [place] % (Auto) 9.9 Eos % (Auto) 0.7 [...] Clarity Clear Urine pH 5.0 Ur Specific [place] 1.025 Urine Protein 30 H Urine Glucose [...] (Auto) Neut % (Auto) Lymph % (Auto) [place] % (Auto) Eos % (Auto) Baso % (Auto) Absolute Neuts (auto) Absolute Lymphs (auto) Nucleated RBC % Sodium Potassium Chloride Carbon Dioxide Anion Gap BUN Creatinine Estim Creat Clear Calc Est GFR (MDRD) Non-Af BUN/Creatinine Ratio Glucose Calcium Total Bilirubin AST ALT Alkaline Phosphatase Total Protein Albumin Globulin Albumin/Globulin Ratio b-Hydroxybutyric mmol/L Urine Color Urine Clarity Urine pH Ur Specific [place] Urine Protein Urine Glucose (UA) Urine Ketones [...] diverticulosis. 3. Multivessel coronary calcifications. Reading Location: [id number] Management Discussion w/another healthcare provider: Hospitalist (Dr. Weiner) Discharge Plan Dx/Rx/DC Orders Clinical Impression: Diarrhea, Hyponatremia, Acute kidney injury Disposition Disposition: Acute Care Hospital [facility] What to do if you have Problems For any increased pain, shortness of breath, bleeding, nausea or vomiting, chestpain, or any unexpected problems, contact your Primary Care Provider. Call [facility] ([phone]) or report tothe closest Emergency Room. Call 911 if necessary. 07/06/24 2303 Cosigner Signature (if applicable): CC: Dr. Pancho Tran MD ~ Signed [facility]05-15-2025 Radiology Diagnostic study note [facility] Imaging Services [address] [place], [place] [address] Abdomen/Pelvis W IV Cont ONLY MR#: [id number] Acct: [id number] Name: LIGIA RIVAS Rep #: [id number] : 1960 F 63 From: Rozina Nava MD PCP: Dr. Pancho Tran MD Status: R EG ER Study:Abdomen/Pelvis W IV Cont ONLY Date of E xam: 07/06/24 Exam# [id number] Ordering Dr: Mahendra Devine MD PROCEDURE: ABDOMEN/PELVIS [...] diverticulosis. 3. Multivessel coronary calcifications. Reading Location: [id number] CC: Dr. Mahendra Devine MD; Dr. Pancho Tran MD ~ Vendor Representatives: Signed [facility]04-03-2025 NotePap Smear Specimen AdequacyApril 2024 11:14amComment.Satisfactory for evaluation. Endocervical and/or squamous metaplasticcells (endocervical component)are present.[facility] A#[id number] on above:Satisfactory for evaluation. Endocervical and/or squamous metaplasticcells (endocervical component)are present.05-06-2024 [facility] [address] [place] [address] HEALTH INFORMATION MANAGEMENT EMERGENCY DEPARTMENT : [id number] Signed Patient: LIGIA RIVAS Acct:[id number] MRUN: [id number] : 1960 Sex: F Loc: ED AD [...] Feels Threatened In a Relationship: No - Richardson/Gender ID What is your current Gender Identity? [...] Care Provider] - CHRIS GARCIA PA-C [PHYSICIAN ASSEMBLER FILTERS] - Home Medications: Ambulatory Orders Medication Instructions Recorded Naproxen [Naprosyn] 500 mg PO TID #20 tablet 05/06/24 Time Seen by Provider: 05/06/24 12:08 Electronically Generated By:ALLEN CARRENO MD Generated Date/Time: 05/06/24 1225 Electronically Signed By: 05/06/24 1249 Co Signed Electronically By: Co Signed Date/Time: CC: DANNY NEVAREZ MD [facility]03-15-2025 Radiology Diagnostic study note [facility] [address] [place] [address] DIAGNOSTIC RADIOLOGY REPORT: [id number], Signed. 2 Patient: LIGIA RIVAS : 1960, age 63 MR#: [id number] Acct: [id number] - EXAMINATION: THREE XRAY VIEWS OF THE [...] by: DAHIANA ORR DO Signed date/time: 05/06/24 6496 CC: DANNY NEVAREZ MD; ALLEN CARRENO MD [facility] Work Phone: 1(156) 852-106202-20-2025 Evaluation note* Diagnosis Onset Date Resolution Status [...] gynecological examination noneactive May 24, 2024 12:00pm [facility] Work Phone: 1(912) 519-131602-20-2025 Evaluation note* Diagnosis Onset Date Resolution Status [...] 9:43am Diarrhea acute July 06, 2024 10:33am [facility] Work Phone: 1(240) 462-266402-20-2025 Evaluation note* Diagnosis Onset Date Resolution Status [...] 2024 11:59pm Hyponatremia acute July 06 11:59pm [facility] Work Phone: 1(908) 573-505802-20-2025 Evaluation note* Diagnosis Onset Date Resolution Status [...] 2024 3:08pm Hyponatremia acute July 07 3:08pm [facility] Work Phone: 1(522) 533-297511-18-2024 Evaluation note* Diagnosis Onset Date Resolution Status [...] diabetes mellitus chronic April 20, 2024 3:20pm [facility] Work Phone: 1([phone]) 658-521804-24-2024 History of Present illness Narrative* Tiffany Beaver [...] improve the problem: rest / cane. 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 PHYSICAL EXAMINATION: Well developed, well [...] Surgery Hip Preservation [facility] summary Author ALLEN DYLAN [facility] Note Date/Time May 06, 2024 12: 49pm [facility] [address] [place] [address] HEALTH INFORMATION MANAGEMENT EMERGENCY DEPARTMENT : [phone] Signed Patient: LIGIA RIVAS Acct:[id number] MRUN: [id number] : 1960 Sex: F Loc: ED AD [...] Feels Threatened In a Relationship: No - Richardson/Gender ID What is your current Gender Identity? [...] Care Provider] - CHRIS GARCIA PA-C [PHYSICIAN ASSEMBLER FILTERS] - Home Medications: Ambulatory Orders Medication Instructions Recorded Naproxen [Naprosyn] 500 mg PO TID #20 tablet 05/06/24 Time Seen by Provider: 05/06/24 12:08 Electronically Generated By:ALLEN CARRENO MD Generated Date/Time: 05/06/24 1225 Electronically Signed By: <Electronically signed by ALLEN CARRENO MD> 05/06/24 1249 Co Signed Electronically By: Co Signed Date/Time: CC: DANNY NEVAREZ MD [facility] Work Phone: Discharge summary Author Cate Sargent [facility] Note Date/Time July 08, 2024 10:13 am [facility] Medical Records Department [address] [place] [address] Instructions for Home/Discharge Instructions 07/08/24 1010 MR#: [id number] Acct: [id number] Name: LIGIA RIVAS Rep #:[id number] : [...] MD; Dr. Pancho Tran MD ~ Signed [facility] Work Phone: Evaluation note* Diagnosis Onset Date Resolution Status Endometrial thickening on ultrasound acute HTN (hypertension) chronic Endometrial thickening on ultrasound acute [facility] Work Phone: Evaluation note* Diagnosis Onset [...] disease acute Osteoarthritis of left hip [facility] Work Phone: Evaluation note* Diagnosis Left hip pain- Primary Pain in joint, pelvic region and thigh Left hip pain Pain in joint, pelvic region and thigh documented [facility] encounter [facility] Diagnosis Left hip pain Pain in joint, pelvic region and thigh documented in this encounter [facility] noteNo assessment information available [facility] Work Phone: Evaluation note* Diagnosis Onset Date Resolution Status Admit Date Diabetic neuropathy acute Septe mb2024 9:41am Anxiety and depression chronic Se ptember 2024 9:41am HTN (hypertension) chronic 2024 9:41am Type 2 diabetes mellitus chronic November 16, 2024 9:41am [facility] Work Phone: Progress note Author Sandra Meredith [facility] Note Date/Time November 16, 2024 10:41am [facility] [address] [place] [address] [place] [address] OFFICE VISIT Date of Service: 11/16/24 MR#: [id number] Acct: [id number] Name: LIGIA RIVAS Rep #: [id number] : 1960 Provider: ARCADIO Meredith Age/Sex: 63/F Location: [facility] Status: Signed Intake Vital Signs 07/07/24 14:19 [...] Visit Reasons: medication refills 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 Accompanied by: Self Is patient [...] Rx tabs Nurse's Note: [facility] Anxiety and depression Health [...] 3 current occupational status: employed current occupation: [employer] living pets and animals: Yes pets [...] physical activity do you participate in: none jered/adventist: Taoist seatbelt use: sometimes do you feel safe at home: Yes additional social history: - Dionisio [facility] 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 Details: LIGIA RIVAS, is [...] eyes, seasonal allergy symptoms, hives or wheezing Jauncarlos/Lymp Hematologic/Lymphatic: No easy bleeding, easy bruising or [...] use of insulin E11.65; Z79.4 Diabetes mellitus correction insulin use: with 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 intermodal truck driver use Diabetes mellitus complication status: with hyperglycemia Hypertension, unspecified type I10 Hypertension type: unspecified Diabetic neuropathy E11.40 Time Spent (min) 30 Assessment and Plan Assessment and Plan (1) Anxiety and depression: Status: Chronic Plan: Well-controlled at this time we will continue current medication (2) Type 2 diabetes mellitus: Status: Chronic Qualifiers: Diabetes mellitus correction insulin use: with correction use Diabetes mellitus complication status: with hyperglycemia [...] Cosigner Signature: Date (if applicable) CC: ~ [facility] Work Phone: Reason for referral (narrative)* Consultation (Routine) - New Request Specialty Diagnoses / Procedures Referred By David pruitt Referred To Contact Orthopaedics Diagnoses Left hip pain Tiffany Beaver MD [address] [place] [address] Referral ID Status Reason Start Date Expiration Date V isits Requested Visits Authorized [id number] New Request 06/16/2023 07/10/2024 1 1 * Diagnostic X-Ray (Routine) - New Request Specialty Diagnoses / Procedures Referred By David pruitt Referred To Contact Diagnoses Left hip pain Procedures XR HIP LEFT 2-3 VIEWS Tiffany Beaver MD [address] [place] [address] Referral ID Status Reason Start Date Expiration Date V isits Requested Visits Authorized [id number] New Request 06/15/2023 07/09/2024 1 1 [facility] for referral (narrative)No reason for referral information availableHenry [facility] Work Phone: Summary Purpose Family History [...] Will No October 05 11:15am Power of Road Engineer Freight No October 05 11:15am Advance Directive Response Recorded Date/ Time Do you have a Healthcare Power of Road Engineer Freight? No July 06, 2024 9:33pm Advance Directive Response Recorded Date/ Time Do you have a Healthcare Power of Road Engineer Freight? No July 07, 2024 12:42am Chief Complaint [...] ENDO PT April 20, 2024 3:20pm Annual (RECEPTIONIST SECRETARY) May 24, 2024 12:0 0pm PAP May [...] ENDO PT April 20, 2024 3:20pm Annual (RECEPTIONIST SECRETARY) May 24, 2024 12:0 0pm PAP May 25, 2024 8:59 am SCREENING/POST CONNIE June 01, 2024 1:3 1pm Chief Complaint Admit Date 3 M FU April 13, 2024 9:38am EST NEW PT - ENDO PT April 20, 2024 3:20pm Annual (RECEPTIONIST SECRETARY) May 24, 2024 12:0 0pm PAP May 25, 2024 8:59 am SCREENING/POST CONNIE June 01, 2024 1:3 1pm 3 M FU July 06, 2024 9:43a m Chief Complaint Admit Date 3 M FU April 13, 2024 9:38am EST NEW PT - ENDO PT April 20, 2024 3:20pm Annual (RECEPTIONIST SECRETARY) May 24, 2024 12:0 0pm PAP May [...] ENDO PT April 20, 2024 3:20pm Annual (RECEPTIONIST SECRETARY) May 24, 2024 12:0 0pm PAP May [...] ENDO PT April 20, 2024 3:20pm Annual (RECEPTIONIST SECRETARY) May 24, 2024 12:0 0pm PAP May [...] 2024 3:20pm Hyperlipidemia April 20, 2024 3:20pm IGTA (obstructive sleep apnea) March 262024 3:20pm Type [...] ENDO PT April 20, 2024 3:20pm Annual (RECEPTIONIST SECRETARY) May 24, 2024 12:0 0pm PAP May [...] HIP LEFT 2-3 VIEWS Tiffany Beaver MD [address] [place] [address] Referral ID Status Reason Start Date Expiration Date V isits Requested Visits Authorized [id number] New Request 06/15/2023 07/09/2024 1 1 Additional Source Comments INFORMATION SOURCE (unrecogn ized section and content) DATE CREATED AUTHOR 04/11/2018 [facility] DATE CREATED AUTHOR AUTHOR'S ORGANIZ ATION 06/26/2018 [facility] DATE CREATED AUTHOR AUTHOR'S ORGANIZ ATION 03/08/2020 [facility] DATE CREATED AUTHOR AUTHOR'S ORGANIZ ATION 10/31/2022 [facility] DATE CREATED AUTHOR AUTHOR'S ORGANIZ ATION 06/18/2023 [facility] DATE CREATED AUTHOR AUTHOR'S ORGANIZ ATION 05/11/2024 [facility] DATE CREATED AUTHOR AUTHOR'S ORGANIZ ATION 09/24/2024 [facility] DATE CREATED AUTHOR AUTHOR'S ORGANIZ ATION 11/17/2024 [facility] Goals (unrecognized section and content) Goals [...] Team Status: Inactive Member Role Status Dates 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 Sandra Meredith , RESTAURANT TEAM MEMBER-C Primary Care Provider Activ e Start: January 10, 2024 End: January 10, 2024 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 Sandra Meredith , RESTAURANT TEAM MEMBER-C Referring Provider Active Start: January 10, 2024 End: January 10, 2024 Caitlin Tilley RESTAURANT TEAM MEMBER-C Attending Provider Active Start: January 10, 2024 End: January 10, 2024 Team Status: Inactive Member Role Status Dates 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 Sandra Gomezr , RESTAURANT TEAM MEMBER-C Primary Care Provider Activ e Start: January 10, 2024 End: January 10, 2024 Caitlin Tilley RESTAURANT TEAM MEMBER-C Attending Provider Active Start: January 10, 2024 End: January 10, 2024 Caitlin Tilley , RESTAURANT TEAM MEMBER-C Referring Provider Active Start: January 10, 2024 End: January 10, 2024 Team Status: Inactive Member Role Status Dates 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 Sandra Gomezr , RESTAURANT TEAM MEMBER-C Primary Care Provider Activ e Start: April 13, 2024 End: April 13, 2024 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 Sandra Gomezr , RESTAURANT TEAM MEMBER-C Referring Provider Active Start: April 13, 2024 End: April 13, 2024 Caitlin Tilley RESTAURANT TEAM MEMBER-C Attending Provider Active Start: April 13, 2024 End: April 13, 2024 Team Status: Inactive Member Role Status Dates RESTAURANT TEAM MEMBEREssence Meredith , RESTAURANT TEAM MEMBER-C Primary Care Provider Activ e Start: April 20, 2024 End: April 20, 2024 RESTAURANT TEAM MEMBEREssence Meredith , RESTAURANT TEAM MEMBER-C Referring Provider Active Start: April 20, 2024 [...] Provider Active Start: July 07, 2024 Mahendra Devine MD Emergency Provider Active [...] St art: July 08, 2024 Dr. Alejandra Weiner MD [...] of left hip Sandra Meredith MD [address] [place] [address] [facility] [address] [place] [address] Referral ID Status Reason Start Date Expiration Date V isits Requested Visits Authorized [id number] Pending Review 06/10/2023 07/04/2024 1 1 Specialty Diagnoses / Procedures Referred By David pruitt Referred To Contact Diagnoses Left hip pain Procedures XR HIP LEFT 2-3 VIEWS Tiffany Beaver MD [address] [place] [address] Referral ID Status Reason Start Date Expiration Date V isits Requested Visits Authorized [id number] New Request 06/15/2023 07/09/2024 1 1 FOR [...] BE BASED ON THE PRIMARY CLINICAL RECORDS. [employer] provides no warranty or guarantee of the accuracy or completeness of information in this document.
== END | disposition home or self-care (01) ==
LOC: LABSPEC 12-14 15:18
PROVIDERS: PCP Internal Medicine; Visit Provider Physician Assistant
DX: R82.90 Unspecified abnormal findings in urine (principal)
CPT/HCPCS: 87077; 87086; 87088; 87186

== ENCOUNTER → 2024-12-30 | Outpatient (CLI) | payer MEDICAID, SELFPAY ==
--- OUTSIDE RECORDS SUMMARY | 2024-12-30 08:32 | XMS RPT_ITS | CCD ---
Author Organization [facility] Care Team Providers Care Sand Filler Name Role Phone SARAHMANE Andrae Attending Unavailable Dr. Ivone Hurtado Primary Care Provider [phone] Dr. Ivone Hurtado Referring Provider Cleopatra INSTRUMENTATION ENGINEER, INSTRUMENTATION ENGINEER-C Lisbeth Attending Provider [phone] Dr. Augusta Sandhu Attending Provider [phone] Dr. Ivone Hurtado Primary Care Provider Dr. Ivone Hurtado Referring Provider [phone] MD Olaf Rene Attending Provider Dr. Tim Carballo Attending Provider Dr. Gavin Bhakta Attending Provider Dr. Freddie Dawson Attending Provider Unavailable Primary Care Provider UnavailSANDRA Easton Referring Unavailable TIFFANY BEAVER Attending Unavailable TIFFANY BEAVER Referring Unavailable TIFFANY BEAVER Attending Unavailable DANNY NEVAREZ Primary Care Unavailable ALLEN CARRENO Attending Unavailable Eliu INSTRUMENTATION ENGINEER-C, INSTRUMENTATION ENGINEEREssence Flores Primary Care Provider Eliu INSTRUMENTATION ENGINEER-C, INSTRUMENTATION ENGINEEREssence Flores Referring Provider Caitlin Wong Attending Provider Caitlin Wong Referring Provider [phone] Chelsea KESSLER, Dr. Deleon Attending Provider Chelsea KESSLER, Dr. Deleon Primary Care Provider Chelsea KESSLER, Dr. Deleon Referring Provider [phone] Ungerer INSTRUMENTATION ENGINEER-C, INSTRUMENTATION ENGINEER. Sandra Primary Care Provider Ungerer INSTRUMENTATION ENGINEER-C, INSTRUMENTATION ENGINEER. Sandra Referring Provider Jarek INSTRUMENTATION ENGINEER-C, Caitlin Attending Provider Geovanny BEYER, Pam Attending Provider [phone] Pam Small CNM Referring Provider [phone] ROQUE KESSLER, DANNY Church Primary Care Provider [phone] DYLAN KESSLER, ALLEN Emergency Provider Ungerer INSTRUMENTATION ENGINEER-C, Sandra Primary Care Provider [phone] Ungerer INSTRUMENTATION ENGINEER-C, Sandra Referring Provider Manan Hull Attending Provider Manan Hull Referring Provider ySbil KESSLER, Mahendra Emergency Provider Husam KESSLER, Dr. Roberts Admit Provider Unavailab heri Weiner MD, Dr. Roberts Attending Provider Joan Devine MD, Mahendra Emergency Provider Husam KESSLER, Dr. Roberts Admit Provider Unavailab heri Weiner MD, Dr. Roberts Attending Provider Joan Weiner MD, Dr. Roberts Other Provider Unavailab heri Sargent MD, Dr. Cate Dsouza Attending Provider Rosetta KESSLER, Dr. Cate Dsouza Other Provider UNGERER, SANDRA INSTRUMENTATION ENGINEER Consulting Unavailable GAVIN BHAKTA JR Admitting Unavailable GAVIN BHAKTA JR Primary Care Unavailable GAVIN BHAKTA JR Attending Unavailable PROVIDER, UNKNOWN Consulting Unavailable UNGERER, SANDRA INSTRUMENTATION ENGINEER Consulting Unavailable UNGERER, SANDRA INSTRUMENTATION ENGINEER Attending Unavailable UNGERER, SANDRA INSTRUMENTATION ENGINEER Admitting Unavailable UNGERER, SANDRA INSTRUMENTATION ENGINEER Primary Care Unavailable PROVIDER, UNKNOWN Consulting Unavailable Chelsea KESSLER, Dr. Deleon Primary Care Physician Dr. Pancho Tran MD Referring Provider [phone] Eliu INSTRUMENTATION ENGINEER-Sandra Cary Attending Physician Oleghe, Efewongbe Primary Care Unavailable Oleghe, Efewongbe Referring Unavailable Pam Small Attending Unavailable Oleghe, Efewongbe Primary Care Unavailable Oleghe, Efewongbe Referring Unavailable Manan Hull Attending Unavailable Oleghe, Efewongbe Primary Care Unavailable Oleghe, Efewongbe Referring Unavailable Caitlin Tilley Attending Unavailable Caitlin Tilley Attending Unavailable Ungerer, Sandra Referring Unavailable Ungerer, Sandra Primary Care Unavailable Oleghe, Efewongbe Primary Care Unavailable Oleghe, Efewongbe Referring Unavailable Keith Martinez Attending Unavailable Oleghe, Efewongbe Primary Care Unavailable Oleghe, Efewongbe Referring Unavailable Kateryna Meredithica Attending Unavailable Weiner, Achintya Admitting Unavailable Koram, Cate Lianna Attending Unavailable Oleghe, Efewongbe Primary Care Unavailable Weiner, Achintya Consulting Unavailable Koram, Cate Lianna Consulting Unavailable Oleghe, Efewongbe Primary Care Unavailable Keith Martinez Attending Unavailable Caitlin Tilley Referring Unavailable Caitlin Tilley [...] Attending Unavailable Oleghe, Efewongbe Primary Care Unavailable Pam Small Attending Unavailable Pam Small Referring Unavailable Oleghe, Efewongbe Primary Care Unavailable Weiner, Achintya Attending Unavailable Weiner, Achintya Consulting Unavailable Weiner, Achintya Admitting Unavailable Ungerer, Sandra Primary Care Unavailable Ungerer, Sandra Referring Unavailable Oleghe, Efewongbe Attending Unavailable Caitlin Tilley Attending Unavailable Sandra Meredith Referring Unavailable Sandra Meredith Primary Care Unavailable Allergies Allergy Classification Reported Allergen(s) Allergy Type Date of Onset Reaction(s) Facility (1 source) Acetaminophen Drug Allergy 01-07-2023 [facility] (1 source) oxyCODONE Drug Allergy 01-07-2023 [facility] Medications Current Medications Medication Drug Class(es) [...] 12:00am April 13, 2024 10:47am Continuous Glucose Production Sampler (FreeStyle Caroline 2 [place] Systm) Device (3 sources) Start: 06-01-2023 Continuous Glu cose Production Sampler (FreeStyle Caroline 2 [place] Systm) Device 06/01/2023 Active Continuous Glucose Sensor (Dexcom G6 Sensor) Misc (3 sources) Start: 05-11-2023 Continuous Glu cose Sensor (Dexcom G6 Sensor) Misc USE 1 DIRECTED 05/11/2023 Active Continuous Glucose Sensor (FreeStyle Caroline 2 Sensor Systm) Misc (3 sources) Start: 05-31-2023 Continuous Glu cose Sensor (FreeStyle Caroline 2 Sensor Systm) Misc 05/31/2023 Active Dulaglutide (20 sources) GLP-1 Receptor Agonist Start: 08-30-2024 Dulaglutide (Trulici ty) 4.5 mg/0.5 mL pen injector Active 4.5 mg SC EVERY WEEK 6 August 30, 2024 12:00am Type 2 diabetes mellitus Type 2 diabetes mellitus with hyperglycemia 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 Complies with drug [...] release(DR/EC) Active 60 mg PO DAILY 90 0 November 15, 2024 9:39am Complies with drug [...] Start: 05-03-2023 take 2 tablets by mo sdh once daily glipiZIDE 10 MG tablet XL [...] pen injector (20 sources) Insulin Analog Start: 02-27-2025 Insulin Glargi ne (Lantus Solostar U-100 Insulin) 100 unit/mL (3 mL) insulin pen Active 14 U SC DAILY April 20, 2024 4:28pm Type 2 diabetes mellitus Type 2 [...] tablet Active 20 mg PO DAILY 60 August 24, 2024 10:22am Hyperthyroidism Thyrotoxicosis, unspecified [...] Active 75 mg PO AT BEDTIME 90 November 16, [...] g PO THREE TIMES A DAY 210 0 July 06, 2024 12:00am July 06, [...] mellitus Type 2 diabetes mellitus with hyperglycemia 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 On Hold: Ordered [...] disorder; Translations: [Essential (primary) hypertension] Onset: Chronic Genitourinary symptoms and ill-defined conditions (2 sources) Unspecified abnormal findings in urine; Translations: [Dysuria] Onset: Episodic Mood disorders (12 sources) Mild depression; Translations: [...] diarrhea; Translations: [Irritable bowel syndrome, unspecified] Onset: 5 Chronic Other gastrointestinal disorders (16 sources) Diarrhea; [...] [Acute candidiasis of vulva and vagina] Onset: 5 Past or Other Problems Problem Classification Problem Date Documented Da te Episodic/Chronic Acute and unspecified renal failure (9 sources) Acute renal failure syndrome; Translations: [Acute kidney failure, unspecified] Onset: 07-10-2024 07-06-2024 Episodic Fluid and electrolyte disorders (8 sources) Hyponatremia; Translations: [Hypo-osmolality and hyponatremia] Onset: 07-08-2024 07-06-2024 Episodic Other aftercare (1 source) 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; Translations: [[facility] (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] Onset: 07-06-2024 Episodic Other gastrointestinal disorders (2 sources) Diarrhea, unspecified; Translations: [Diarrhea, unspecified] Onset: 07-06-2024 Episodic Other screening for suspected conditions (not mental disorders or infectious disease) (12 sources) Decreased thyroid stimulating hormone level; Translations: [Other specified abnormal findings of blood chemistry] Onset: 05-30-2024 10-07-2023 Episodic Results Test Name Value Interpretation Reference Range Facility Urine Cultureon 12-16-2024 [facility] Klebsiella pneumonia e sp pneum [place] Count 50,000-80,000 Klebsiella pneumoniae sp pneum: REACTION Ampicillin Islt PAUL Ampicillin+Sulbac Islt PAUL <=2 S Cefepime Islt PAUL <=0.12 S cefTRIAXone Islt PAUL <=0.25 S Ciprofloxacin Islt PAUL <=0.06 S B-Lactamase Extended Susc Islt NEG Gentamicin Islt PAUL <=1 S levoFLOXacin Islt PAUL <=0.12 S Meropenem Islt PAUL <=0.25 S Nitrofurantoin Islt PAUL 32 S Pip+Tazo Islt PAUL <=4 S TMP SMX Islt PAUL <=20 S Normal [facility] Comment on above: Performed By: #### M 100.2200 ####[facility] [id number] [place], [address] Urgent Care Visit Reporton 1 Urgent Care Visit Report [facility] [address], [address] [place], [place] [address] OFFICE VISIT Date of Service: 12/13/24 MR#: [id number] Acct: [id number] Name: LIGIA RIVAS Rep #: [id number] : 1960 Provider: BEVERLY Watkins Age/Sex: 64/F Location: [facility] Status: Signed Intake Vital Signs 11/16/24 09:59 12/13/24 13:02 Height 5 ft 7 in 5 ft 7 in Weight: 260 lb 263 lb BMI 40.7 41.1 BP 138/82 H 126/86 H Blood Pressure Location Rt brachial Lt brachial Position Sitting Sitting Respiration 16 17 Pulse 94 93 Pulse Source Monitor NIBP Temp 97.3 F L 98.1 F Temp Source Temporal Oral Pulse Oximetry (%) 96 96 Oxygen Delivery Method room air room air Intake Visit Reasons: CONCERN FOR UTI Chief Complaint: dysuria, blood, decreased output Contract Manager Required: No Is patient in pain?: No Allergies No Known Allergies Allergy (Verified 12/13/24 13:02) Medications ???Medication ???Instructions ???Recorded ???Confirmed ???Type albuterol sulfate 90 mcg/actuation 2 puff inhalation Q6H PRN 12/13/24 History aerosol inhaler (Ventolin HFA) shortness of breath or wheezing blood-glucose transmitter (Dexcom #1 ea 01/04/23 11/16/24 History G6 Transmitter device) insulin lispro 100 unit/mL 5 unit (0.05 mL) subcut TID #15 mL 12/24/23 12/13/24 Rx subcutaneous pen (Humalog KwikPen (U-100) Insulin) blood sugar diagnostic (OneTouch #100 ea 04/13/24 11/16/24 Rx Ultra Test strips) cholecalciferol (vitamin D3) 25 25 mcg PO QDAY 04/13/24 12/13/24 H istory mcg (1,000 unit) capsule insulin glargine 100 unit/mL (3 14 unit subcut DAILY 04/20/2411/23 History mL) subcutaneous pen (Lantus Solostar U-100 Insulin) calcium carbonate PO 07/06/24 12/13/24 History mecobalamin (vitamin B12) 500 mcg 500 mcg PO DAILY 07/06/24 5 History chewable tablet methimazole 10 mg tablet 20 mg (2 x 10 mg) PO DAILY #60 tab s 08/24/24 12/13/24 Rx blood-glucose sensor (FreeStyle #6 ea 08/29/24 11/16/24 Rx Caroline 3 Plus Sensor device) dulaglutide 4.5 mg/0.5 mL 4.5 mg (0.5 mL) subcut QWEEK #6 mL 08/30/24 12/13/24 Rx subcutaneous [facility] glipizide 10 mg tablet, extended 10 mg PO BID #180 tabs 10/24/24 Rx release 24 hr duloxetine 60 mg capsule,delayed 60 mg PO DAILY #90 caps 11/15/24 1 Rx release gabapentin 100 mg capsule 100 mg PO QHS PRN neuropathy #30 0 11/16/24 12/13/24 Rx caps losartan 100 1 tab PO DAILY #90 tabs 11/16/24 1 Rx mg-hydrochlorothiazide 12.5 mg tablet potassium chloride 20 mEq 20 meq PO QDAY #90 tabs 11/16/24 1 Rx tablet,extended release(part/cryst) ropinirole 1 mg tablet 1 mg PO QHS #90 tabs 11/16/24 1004/18 Rx trazodone 150 mg tablet 75 mg (1/2 x 150 mg) PO QHS #90 12/13/24 Rx tabs nitrofurantoin 100 mg PO Q12H 5 days #10 caps 12/13/24 Rx monohydrate/macrocryst als 100 mg capsule (Macrobid) Is last menstrual period known: No Post menopausal: Yes Patient : No Have you fallen in the past year?: No Nurse's Note: dysuria, blood, decreased output since this morning. denies abd pain, back pain, fever. [facility] Medical History Anxiety and depression Health [...] has step son and custody of 3 grandchil (more content not included)... Normal [facility] Vis iton 11-16-2024 Internal Medicine Office Visit [facility] [address] [place], [place] [address] OFFICE VISIT Date of Service: 11/16/24 MR#: [id number] Acct: [id number] Name: LIGIA RIVAS Rep #: [id number] : 1960 Provider: ARCADIO miles Age/Sex: 63/F Location: [facility] Status: Signed Intake Vital Signs 07/07/24 14:19 [...] Visit Reasons: medication refills 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 Contract Manager Required: No Accompanied by: Self Is patient [...] Rx tabs Nurse's Note: medication refills needed [facility] History Anxiety and depression Health [...] 3 current occupational status: employed current occupation: [employer] living pets and animals: Yes pets and animals: cat(s) and dog(s) history of recent travel: Yes () out of state: Yes out of country: No Smoking Status: Never smoker Electronic Cigarette Use: not used second hand exposure: No alcohol intake: (more content not included)... Normal [facility] Basic Metabolic Profile (BMP )on 07-15-2024 BUN Normal - [facility] Comment on above: Result Comment: Canc elled via OM: Order cancelled - Patient discharged Performed By: #### L 100.0100 #### [facility] [address] [place], [address] BUN/CRE Normal - [facility] Comment on above: Result Comment: Canc elled via OM: Order cancelled - Patient discharged Performed By: #### L 100.0100 #### [facility] [address] [place], [address] Calcium Normal 7.6-11.0 [facility] Comment on above: Result Comment: Canc elled via OM: Order cancelled - Patient discharged Performed By: #### L 100.0100 #### [facility] [address] [place], [address] CL Normal 98-108 [facility] Comment on above: Result Comment: Canc elled via OM: Order cancelled - Patient discharged Performed By: #### L 100.0100 #### [facility] [address] [place], [address] CO2 Normal 21.0-32.0 [facility] Comment on above: Result Comment: Canc elled via OM: Order cancelled - Patient discharged Performed By: #### L 100.0100 #### [facility] [address] [place], [address] CREAT,SERUM Normal 0.70-1.20 [facility] Comment on above: Result Comment: Canc elled via OM: Order cancelled - Patient discharged Performed By: #### L 100.0100 #### [facility] [address] [place], [address] eGFR Normal >60 [facility] Comment on above: Result Comment: Canc elled via OM: Order cancelled - Patient discharged Performed By: #### L 100.0100 #### [facility] [address] [place], [address] GAP Normal 5-15 [facility] Comment on above: Result Comment: Canc elled via OM: Order cancelled - Patient discharged Performed By: #### L 100.0100 #### [facility] [address] [place], [address] GLU Normal 70-99 [facility] Comment on above: Result Comment: Canc elled via OM: Order cancelled - Patient discharged Performed By: #### L 100.0100 #### [facility] [address] [place], [address] Potassium Normal 3.3-5.1 [facility] Comment on above: Result Comment: Canc elled via OM: Order cancelled - Patient discharged Performed By: #### L 100.0100 #### [facility] [address] [place], [address] Basic Metabolic Profile (BMP) Normal 133-145 [facility] Comment on above: Result Comment: Canc elled via OM: Order cancelled - Patient discharged Performed By: #### L 100.0100 #### [facility] [address] [place], [address] CBC W/Diff, Automatedon 05-2 Absolute Neut Normal 2.0-7.7 [facility] Comment on above: Result Comment: Canc elled via OM: Order cancelled - Patient discharged Performed By: #### L 100.0100 #### [facility] [address] [place], [address] HCT Normal 37-47 [facility] Comment on above: Result Comment: Canc elled via OM: Order cancelled - Patient discharged Performed By: #### L 100.0100 #### [facility] [address] [place], [address] HGB Normal 12.0-15.0 [facility] Comment on above: Result Comment: Canc elled via OM: Order cancelled - Patient discharged Performed By: #### L 100.0100 #### [facility] [address] [place], [address] MCH Normal 27.0-32.0 [facility] Comment on above: Result Comment: Canc elled via OM: Order cancelled - Patient discharged Performed By: #### L 100.0100 #### [facility] [address] [place], [address] MCHC Normal 32-36 [facility] Comment on above: Result Comment: Canc elled via OM: Order cancelled - Patient discharged Performed By: #### L 100.0100 #### [facility] [address] [place], [address] MCV Normal 81-99 [facility] Comment on above: Result Comment: Canc elled via OM: Order cancelled - Patient discharged Performed By: #### L 100.0100 #### [facility] [address] [place], [address] NEUT% Normal 47-70 [facility] Comment on above: Result Comment: Canc elled via OM: Order cancelled - Patient discharged Performed By: #### L 100.0100 #### [facility] [address] [place], [address] PLT Normal 150-450 [facility] Comment on above: Result Comment: Canc elled via OM: Order cancelled - Patient discharged Performed By: #### L 100.0100 #### [facility] [address] [place], [address] RBC Normal 4.2-5.4 [facility] Comment on above: Result Comment: Canc elled via OM: Order cancelled - Patient discharged Performed By: #### L 100.0100 #### [facility] [address] [place], [address] RDW CV Normal 11.6-14.6 [facility] Comment on above: Result Comment: Canc elled via OM: Order cancelled - Patient discharged Performed By: #### L 100.0100 #### [facility] [address] [place], [address] RDW SD Normal 35.1-43.9 [facility] Comment on above: Result Comment: Canc elled via OM: Order cancelled - Patient discharged Performed By: #### L 100.0100 #### [facility] [address] [place], [address] WBC Normal 4.4-11.0 [facility] Comment on above: Result Comment: Canc elled via OM: Order cancelled - Patient discharged Performed By: #### L 100.0100 #### [facility] [address] [place], [address] Basic Metabolic Profile (BMP )on 07-14-2024 BUN Normal 4-19 [facility] Comment on above: Result Comment: Canc elled via OM: Order cancelled - Patient discharged Performed By: #### L 100.0100, L500.2500 #### [facility] [address] [place], [address] BUN/CRE Normal 10-20 [facility] Comment on above: Result Comment: Canc elled via OM: Order cancelled - Patient discharged Performed By: #### L 100.0100, L500.2500 #### [facility] [address] [place], [address] Calcium Normal 7.6-11.0 [facility] Comment on above: Result Comment: Canc elled via OM: Order cancelled - Patient discharged Performed By: #### L 100.0100, L500.2500 #### [facility] [address] [place], [address] CL Normal 98-108 [facility] Comment on above: Result Comment: Canc elled via OM: Order cancelled - Patient discharged Performed By: #### L 100.0100, L500.2500 #### [facility] [address] [place], [address] CO2 Normal 21.0-32.0 [facility] Comment on above: Result Comment: Canc elled via OM: Order cancelled - Patient discharged Performed By: #### L 100.0100, L500.2500 #### [facility] [address] [place], [address] CREAT,SERUM Normal 0.70-1.20 [facility] Comment on above: Result Comment: Canc elled via OM: Order cancelled - Patient discharged Performed By: #### L 100.0100, L500.2500 #### [facility] [address] [place], [address] eGFR Normal >60 [facility] Comment on above: Result Comment: Canc elled via OM: Order cancelled - Patient discharged Performed By: #### L 100.0100, L500.2500 #### [facility] [address] [place], [address] GAP Normal 5-15 [facility] Comment on above: Result Comment: Canc elled via OM: Order cancelled - Patient discharged Performed By: #### L 100.0100, L500.2500 #### [facility] [address] [place], [address] GLU Normal 70-99 [facility] Comment on above: Result Comment: Canc elled via OM: Order cancelled - Patient discharged Performed By: #### L 100.0100, L500.2500 #### [facility] [address] [place], [address] Potassium Normal 3.3-5.1 [facility] Comment on above: Result Comment: Canc elled via OM: Order cancelled - Patient discharged Performed By: #### L 100.0100, L500.2500 #### [facility] [address] [place], [address] Basic Metabolic Profile (BMP) Normal 133-145 [facility] Comment on above: Result Comment: Canc elled via OM: Order cancelled - Patient discharged Performed By: #### L 100.0100, L500.2500 #### [facility] [address] [place], [address] CBC W/Diff, Automatedon 05-2 Absolute Neut Normal 2.0-7.7 [facility] Comment on above: Result Comment: Canc elled via OM: Order cancelled - Patient discharged Performed By: #### L 100.0100, L500.2500 #### [facility] [address] [place], [address] HCT Normal 37-47 [facility] Comment on above: Result Comment: Canc elled via OM: Order cancelled - Patient discharged Performed By: #### L 100.0100, L500.2500 #### [facility] [address] [place], [address] HGB Normal 12.0-15.0 [facility] Comment on above: Result Comment: Canc elled via OM: Order cancelled - Patient discharged Performed By: #### L 100.0100, L500.2500 #### [facility] [address] [place], [address] MCH Normal 27.0-32.0 [facility] Comment on above: Result Comment: Canc elled via OM: Order cancelled - Patient discharged Performed By: #### L 100.0100, L500.2500 #### [facility] [address] [place], [address] MCHC Normal 32-36 [facility] Comment on above: Result Comment: Canc elled via OM: Order cancelled - Patient discharged Performed By: #### L 100.0100, L500.2500 #### [facility] [address] [place], [address] MCV Normal 81-99 [facility] Comment on above: Result Comment: Canc elled via OM: Order cancelled - Patient discharged Performed By: #### L 100.0100, L500.2500 #### [facility] [address] [place], [address] NEUT% Normal 47-70 [facility] Comment on above: Result Comment: Canc elled via OM: Order cancelled - Patient discharged Performed By: #### L 100.0100, L500.2500 #### [facility] [address] [place], [address] PLT Normal 150-450 [facility] Comment on above: Result Comment: Canc elled via OM: Order cancelled - Patient discharged Performed By: #### L 100.0100, L500.2500 #### [facility] [address] [place], [address] RBC Normal 4.2-5.4 [facility] Comment on above: Result Comment: Canc elled via OM: Order cancelled - Patient discharged Performed By: #### L 100.0100, L500.2500 #### [facility] [address] [place], [address] RDW CV Normal 11.6-14.6 [facility] Comment on above: Result Comment: Canc elled via OM: Order cancelled - Patient discharged Performed By: #### L 100.0100, L500.2500 #### [facility] [address] [place], [address] RDW SD Normal 35.1-43.9 [facility] Comment on above: Result Comment: Canc elled via OM: Order cancelled - Patient discharged Performed By: #### L 100.0100, L500.2500 #### [facility] [address] [place], [address] WBC Normal 4.4-11.0 [facility] Comment on above: Result Comment: Canc elled via OM: Order cancelled - Patient discharged Performed By: #### L 100.0100, L500.2500 #### [facility] [address] [place], [address] Basic Metabolic Profile (BMP )on 07-13-2024 BUN Normal 4-19 [facility] Comment on above: Result Comment: Canc elled via OM: Order cancelled - Patient discharged Performed By: #### L 501.080 #### [facility] [address] [place], [address] BUN/CRE Normal 10-20 [facility] Comment on above: Result Comment: Canc elled via OM: Order cancelled - Patient discharged Performed By: #### L 501.080 #### [facility] [address] [place], [address] Calcium Normal 7.6-11.0 [facility] Comment on above: Result Comment: Canc elled via OM: Order cancelled - Patient discharged Performed By: #### L 501.080 #### [facility] [address] [place], [address] CL Normal 98-108 [facility] Comment on above: Result Comment: Canc elled via OM: Order cancelled - Patient discharged Performed By: #### L 501.080 #### [facility] [address] [place], [address] CO2 Normal 21.0-32.0 [facility] Comment on above: Result Comment: Canc elled via OM: Order cancelled - Patient discharged Performed By: #### L 501.080 #### [facility] [address] [place], [address] CREAT,SERUM Normal 0.70-1.20 [facility] Comment on above: Result Comment: Canc elled via OM: Order cancelled - Patient discharged Performed By: #### L 501.080 #### [facility] [address] [place], [address] eGFR Normal >60 [facility] Comment on above: Result Comment: Canc elled via OM: Order cancelled - Patient discharged Performed By: #### L 501.080 #### [facility] [address] [place], [address] GAP Normal 5-15 [facility] Comment on above: Result Comment: Canc elled via OM: Order cancelled - Patient discharged Performed By: #### L 501.080 #### [facility] [address] [place], [address] GLU Normal 70-99 [facility] Comment on above: Result Comment: Canc elled via OM: Order cancelled - Patient discharged Performed By: #### L 501.080 #### [facility] [address] [place], [address] Potassium Normal 3.3-5.1 [facility] Comment on above: Result Comment: Canc elled via OM: Order cancelled - Patient discharged Performed By: #### L 501.080 #### [facility] [address] [place], [address] Basic Metabolic Profile (BMP) Normal 133-145 [facility] Comment on above: Result Comment: Canc elled via OM: Order cancelled - Patient discharged Performed By: #### L 501.080 #### [facility] [address] [place], [address] CBC W/Diff, Automatedon 05-2 Absolute Neut Normal 2.0-7.7 [facility] Comment on above: Result Comment: Canc elled via OM: Order cancelled - Patient discharged Performed By: #### L 501.080 #### [facility] [address] [place], [address] HCT Normal 37-47 [facility] Comment on above: Result Comment: Canc elled via OM: Order cancelled - Patient discharged Performed By: #### L 501.080 #### [facility] [address] [place], [address] HGB Normal 12.0-15.0 [facility] Comment on above: Result Comment: Canc elled via OM: Order cancelled - Patient discharged Performed By: #### L 501.080 #### [facility] [address] [place], [address] MCH Normal 27.0-32.0 [facility] Comment on above: Result Comment: Canc elled via OM: Order cancelled - Patient discharged Performed By: #### L 501.080 #### [facility] [address] [place], [address] MCHC Normal 32-36 [facility] Comment on above: Result Comment: Canc elled via OM: Order cancelled - Patient discharged Performed By: #### L 501.080 #### [facility] [address] [place], [address] MCV Normal 81-99 [facility] Comment on above: Result Comment: Canc elled via OM: Order cancelled - Patient discharged Performed By: #### L 501.080 #### [facility] [address] [place], [address] NEUT% Normal 47-70 [facility] Comment on above: Result Comment: Canc elled via OM: Order cancelled - Patient discharged Performed By: #### L 501.080 #### [facility] [address] [place], [address] PLT Normal 150-450 [facility] Comment on above: Result Comment: Canc elled via OM: Order cancelled - Patient discharged Performed By: #### L 501.080 #### [facility] [address] [place], [address] RBC Normal 4.2-5.4 [facility] Comment on above: Result Comment: Canc elled via OM: Order cancelled - Patient discharged Performed By: #### L 501.080 #### [facility] [address] [place], [address] RDW CV Normal 11.6-14.6 [facility] Comment on above: Result Comment: Canc elled via OM: Order cancelled - Patient discharged Performed By: #### L 501.080 #### [facility] [address] [place], [address] RDW SD Normal 35.1-43.9 [facility] Comment on above: Result Comment: Canc elled via OM: Order cancelled - Patient discharged Performed By: #### L 501.080 #### [facility] [address] [place], [address] WBC Normal 4.4-11.0 [facility] Comment on above: Result Comment: Canc elled via OM: Order cancelled - Patient discharged Performed By: #### L 501.080 #### [facility] [address] [place], [address] Basic Metabolic Profile (BMP )on 07-12-2024 BUN Normal 4-19 [facility] Comment on above: Result Comment: Canc elled via OM: Order cancelled - Patient discharged Performed By: #### L 500.2500, L100.0100 ####[facility] [address] [place], [address] BUN/CRE Normal 10-20 [facility] Comment on above: Result Comment: Canc elled via OM: Order cancelled - Patient discharged Performed By: #### L 500.2500, L100.0100 ####[facility] [address] [place], [address] Calcium Normal 7.6-11.0 [facility] Comment on above: Result Comment: Canc elled via OM: Order cancelled - Patient discharged Performed By: #### L 500.2500, L100.0100 ####[facility] [address] [place], [address] CL Normal 98-108 [facility] Comment on above: Result Comment: Canc elled via OM: Order cancelled - Patient discharged Performed By: #### L 500.2500, L100.0100 ####[facility] [address] [place], [address] CO2 Normal 21.0-32.0 [facility] Comment on above: Result Comment: Canc elled via OM: Order cancelled - Patient discharged Performed By: #### L 500.2500, L100.0100 ####[facility] [address] [place], [address] CREAT,SERUM Normal 0.70-1.20 [facility] Comment on above: Result Comment: Canc elled via OM: Order cancelled - Patient discharged Performed By: #### L 500.2500, L100.0100 ####[facility] [address] [place], [address] eGFR Normal >60 [facility] Comment on above: Result Comment: Canc elled via OM: Order cancelled - Patient discharged Performed By: #### L 500.2500, L100.0100 ####[facility] [address] [place], [address] GAP Normal 5-15 [facility] Comment on above: Result Comment: Canc elled via OM: Order cancelled - Patient discharged Performed By: #### L 500.2500, L100.0100 ####[facility] [address] [place], [address] GLU Normal 70-99 [facility] Comment on above: Result Comment: Canc elled via OM: Order cancelled - Patient discharged Performed By: #### L 500.2500, L100.0100 ####[facility] [address] [place], [address] Potassium Normal 3.3-5.1 [facility] Comment on above: Result Comment: Canc elled via OM: Order cancelled - Patient discharged Performed By: #### L 500.2500, L100.0100 ####[facility] [address] [place], [address] Basic Metabolic Profile (BMP) Normal 133-145 [facility] Comment on above: Result Comment: Canc elled via OM: Order cancelled - Patient discharged Performed By: #### L 500.2500, L100.0100 ####[facility] [address] [place], [address] CBC W/Diff, Automatedon 05-2 Absolute Neut Normal 2.0-7.7 [facility] Comment on above: Result Comment: Canc elled via OM: Order cancelled - Patient discharged Performed By: #### L 500.2500, L100.0100 ####[facility] [address] [place], [address] HCT Normal 37-47 [facility] Comment on above: Result Comment: Canc elled via OM: Order cancelled - Patient discharged Performed By: #### L 500.2500, L100.0100 ####[facility] [address] [place], [address] HGB Normal 12.0-15.0 [facility] Comment on above: Result Comment: Canc elled via OM: Order cancelled - Patient discharged Performed By: #### L 500.2500, L100.0100 ####[facility] [address] [place], [address] MCH Normal 27.0-32.0 [facility] Comment on above: Result Comment: Canc elled via OM: Order cancelled - Patient discharged Performed By: #### L 500.2500, L100.0100 ####[facility] [address] [place], [address] MCHC Normal 32-36 [facility] Comment on above: Result Comment: Canc elled via OM: Order cancelled - Patient discharged Performed By: #### L 500.2500, L100.0100 ####[facility] [address] [place], [address] MCV Normal 81-99 [facility] Comment on above: Result Comment: Canc elled via OM: Order cancelled - Patient discharged Performed By: #### L 500.2500, L100.0100 ####[facility] [address] [place], [address] NEUT% Normal 47-70 [facility] Comment on above: Result Comment: Canc elled via OM: Order cancelled - Patient discharged Performed By: #### L 500.2500, L100.0100 ####[facility] [address] [place], [address] PLT Normal 150-450 [facility] Comment on above: Result Comment: Canc elled via OM: Order cancelled - Patient discharged Performed By: #### L 500.2500, L100.0100 ####[facility] [address] [place], [address] RBC Normal 4.2-5.4 [facility] Comment on above: Result Comment: Canc elled via OM: Order cancelled - Patient discharged Performed By: #### L 500.2500, L100.0100 ####[facility] [address] [place], [address] RDW CV Normal 11.6-14.6 [facility] Comment on above: Result Comment: Canc elled via OM: Order cancelled - Patient discharged Performed By: #### L 500.2500, L100.0100 ####[facility] [address] [place], [address] RDW SD Normal 35.1-43.9 [facility] Comment on above: Result Comment: Canc elled via OM: Order cancelled - Patient discharged Performed By: #### L 500.2500, L100.0100 ####[facility] [address] [place], [address] WBC Normal 4.4-11.0 [facility] Comment on above: Result Comment: Canc elled via OM: Order cancelled - Patient discharged Performed By: #### L 500.2500, L100.0100 ####[facility] [address] [place], [address] Basic Metabolic Profile (BMP )on 07-11-2024 BUN Normal 4-19 [facility] Comment on above: Result Comment: Canc elled via OM: Order cancelled - Patient discharged Performed By: #### L 100.0100, L500.2500 #### [facility] [address] [place], [address] BUN/CRE Normal 10-20 [facility] Comment on above: Result Comment: Canc elled via OM: Order cancelled - Patient discharged Performed By: #### L 100.0100, L500.2500 #### [facility] [address] [place], [address] Calcium Normal 7.6-11.0 [facility] Comment on above: Result Comment: Canc elled via OM: Order cancelled - Patient discharged Performed By: #### L 100.0100, L500.2500 #### [facility] [address] [place], [address] CL Normal 98-108 [facility] Comment on above: Result Comment: Canc elled via OM: Order cancelled - Patient discharged Performed By: #### L 100.0100, L500.2500 #### [facility] [address] [place], [address] CO2 Normal 21.0-32.0 [facility] Comment on above: Result Comment: Canc elled via OM: Order cancelled - Patient discharged Performed By: #### L 100.0100, L500.2500 #### [facility] [address] [place], [address] CREAT,SERUM Normal 0.70-1.20 [facility] Comment on above: Result Comment: Canc elled via OM: Order cancelled - Patient discharged Performed By: #### L 100.0100, L500.2500 #### [facility] [address] [place], [address] eGFR Normal >60 [facility] Comment on above: Result Comment: Canc elled via OM: Order cancelled - Patient discharged Performed By: #### L 100.0100, L500.2500 #### [facility] [address] [place], [address] GAP Normal 5-15 [facility] Comment on above: Result Comment: Canc elled via OM: Order cancelled - Patient discharged Performed By: #### L 100.0100, L500.2500 #### [facility] [address] [place], [address] GLU Normal 70-99 [facility] Comment on above: Result Comment: Canc elled via OM: Order cancelled - Patient discharged Performed By: #### L 100.0100, L500.2500 #### [facility] [address] [place], [address] Potassium Normal 3.3-5.1 [facility] Comment on above: Result Comment: Canc elled via OM: Order cancelled - Patient discharged Performed By: #### L 100.0100, L500.2500 #### [facility] [address] [place], [address] Basic Metabolic Profile (BMP) Normal 133-145 [facility] Comment on above: Result Comment: Canc elled via OM: Order cancelled - Patient discharged Performed By: #### L 100.0100, L500.2500 #### [facility] [address] [place], [address] CBC W/Diff, Automatedon 05-2 0-2024 Absolute Neut Normal 2.0-7.7 [facility] Comment on above: Result Comment: Canc elled via OM: Order cancelled - Patient discharged Performed By: #### L 100.0100, L500.2500 #### [facility] [address] [place], [address] HCT Normal 37-47 [facility] Comment on above: Result Comment: Canc elled via OM: Order cancelled - Patient discharged Performed By: #### L 100.0100, L500.2500 #### [facility] [address] [place], [address] HGB Normal 12.0-15.0 [facility] Comment on above: Result Comment: Canc elled via OM: Order cancelled - Patient discharged Performed By: #### L 100.0100, L500.2500 #### [facility] [address] [place], [address] MCH Normal 27.0-32.0 [facility] Comment on above: Result Comment: Canc elled via OM: Order cancelled - Patient discharged Performed By: #### L 100.0100, L500.2500 #### [facility] [address] [place], [address] MCHC Normal 32-36 [facility] Comment on above: Result Comment: Canc elled via OM: Order cancelled - Patient discharged Performed By: #### L 100.0100, L500.2500 #### [facility] [address] [place], [address] MCV Normal 81-99 [facility] Comment on above: Result Comment: Canc elled via OM: Order cancelled - Patient discharged Performed By: #### L 100.0100, L500.2500 #### [facility] [address] [place], [address] NEUT% Normal 47-70 [facility] Comment on above: Result Comment: Canc elled via OM: Order cancelled - Patient discharged Performed By: #### L 100.0100, L500.2500 #### [facility] [address] [place], [address] PLT Normal 150-450 [facility] Comment on above: Result Comment: Canc elled via OM: Order cancelled - Patient discharged Performed By: #### L 100.0100, L500.2500 #### [facility] [address] [place], [address] RBC Normal 4.2-5.4 [facility] Comment on above: Result Comment: Canc elled via OM: Order cancelled - Patient discharged Performed By: #### L 100.0100, L500.2500 #### [facility] [address] [place], [address] RDW CV Normal 11.6-14.6 [facility] Comment on above: Result Comment: Canc elled via OM: Order cancelled - Patient discharged Performed By: #### L 100.0100, L500.2500 #### [facility] [address] [place], [address] RDW SD Normal 35.1-43.9 [facility] Comment on above: Result Comment: Canc elled via OM: Order cancelled - Patient discharged Performed By: #### L 100.0100, L500.2500 #### [facility] [address] [place], [address] WBC Normal 4.4-11.0 [facility] Comment on above: Result Comment: Canc elled via OM: Order cancelled - Patient discharged Performed By: #### L 100.0100, L500.2500 #### [facility] [address] [place], [address] Basic Metabolic Profile (BMP )on 07-10-2024 BUN Normal -19 [facility] Comment on above: Result Comment: Canc elled via OM: Order cancelled - Patient discharged Performed By: #### L 500.2500, L100.0100 ####[facility] [address] [place], [address] BUN/CRE Normal 10-20 [facility] Comment on above: Result Comment: Canc elled via OM: Order cancelled - Patient discharged Performed By: #### L 500.2500, L100.0100 ####[facility] [address] [place], [address] Calcium Normal 7.6-11.0 [facility] Comment on above: Result Comment: Canc elled via OM: Order cancelled - Patient discharged Performed By: #### L 500.2500, L100.0100 ####[facility] [address] [place], [address] CL Normal 98-108 [facility] Comment on above: Result Comment: Canc elled via OM: Order cancelled - Patient discharged Performed By: #### L 500.2500, L100.0100 ####[facility] [address] [place], [address] CO2 Normal 21.0-32.0 [facility] Comment on above: Result Comment: Canc elled via OM: Order cancelled - Patient discharged Performed By: #### L 500.2500, L100.0100 ####[facility] [address] [place], [address] CREAT,SERUM Normal 0.70-1.20 [facility] Comment on above: Result Comment: Canc elled via OM: Order cancelled - Patient discharged Performed By: #### L 500.2500, L100.0100 ####[facility] [address] [place], [address] eGFR Normal >60 [facility] Comment on above: Result Comment: Canc elled via OM: Order cancelled - Patient discharged Performed By: #### L 500.2500, L100.0100 ####[facility] [address] [place], [address] GAP Normal 5-15 [facility] Comment on above: Result Comment: Canc elled via OM: Order cancelled - Patient discharged Performed By: #### L 500.2500, L100.0100 ####[facility] [address] [place], [address] GLU Normal 70-99 [facility] Comment on above: Result Comment: Canc elled via OM: Order cancelled - Patient discharged Performed By: #### L 500.2500, L100.0100 ####[facility] [address] [place], [address] Potassium Normal 3.3-5.1 [facility] Comment on above: Result Comment: Canc elled via OM: Order cancelled - Patient discharged Performed By: #### L 500.2500, L100.0100 ####[facility] [address] [place], [address] Basic Metabolic Profile (BMP) Normal 133-145 [facility] Comment on above: Result Comment: Canc elled via OM: Order cancelled - Patient discharged Performed By: #### L 500.2500, L100.0100 ####[facility] [address] [place], [address] CBC W/Diff, Automatedon 05-1 Absolute Neut Normal 2.0-7.7 [facility] Comment on above: Result Comment: Canc elled via OM: Order cancelled - Patient discharged Performed By: #### L 500.2500, L100.0100 ####[facility] [address] [place], [address] HCT Normal 37-47 [facility] Comment on above: Result Comment: Canc elled via OM: Order cancelled - Patient discharged Performed By: #### L 500.2500, L100.0100 ####[facility] [address] [place], [address] HGB Normal 12.0-15.0 [facility] Comment on above: Result Comment: Canc elled via OM: Order cancelled - Patient discharged Performed By: #### L 500.2500, L100.0100 ####[facility] [address] [place], [address] MCH Normal 27.0-32.0 [facility] Comment on above: Result Comment: Canc elled via OM: Order cancelled - Patient discharged Performed By: #### L 500.2500, L100.0100 ####[facility] [address] [place], [address] MCHC Normal 32-36 [facility] Comment on above: Result Comment: Canc elled via OM: Order cancelled - Patient discharged Performed By: #### L 500.2500, L100.0100 ####[facility] [address] [place], [address] MCV Normal 81-99 [facility] Comment on above: Result Comment: Canc elled via OM: Order cancelled - Patient discharged Performed By: #### L 500.2500, L100.0100 ####[facility] [address] [place], [address] NEUT% Normal 47-70 [facility] Comment on above: Result Comment: Canc elled via OM: Order cancelled - Patient discharged Performed By: #### L 500.2500, L100.0100 ####[facility] [address] [place], [address] PLT Normal 150-450 [facility] Comment on above: Result Comment: Canc elled via OM: Order cancelled - Patient discharged Performed By: #### L 500.2500, L100.0100 ####[facility] [address] [place], [address] RBC Normal 4.2-5.4 [facility] Comment on above: Result Comment: Canc elled via OM: Order cancelled - Patient discharged Performed By: #### L 500.2500, L100.0100 ####[facility] [address] [place], [address] RDW CV Normal 11.6-14.6 [facility] Comment on above: Result Comment: Canc elled via OM: Order cancelled - Patient discharged Performed By: #### L 500.2500, L100.0100 ####[facility] [address] [place], [address] RDW SD Normal 35.1-43.9 [facility] Comment on above: Result Comment: Canc elled via OM: Order cancelled - Patient discharged Performed By: #### L 500.2500, L100.0100 ####[facility] [address] [place], [address] WBC Normal 4.4-11.0 [facility] Comment on above: Result Comment: Canc elled via OM: Order cancelled - Patient discharged Performed By: #### L 500.2500, L100.0100 ####[facility] [address] [place], [address] Basic Metabolic Profile (BMP )on 07-09-2024 BUN Normal 4-19 [facility] Comment on above: Result Comment: Canc elled via OM: Order cancelled - Patient discharged Performed By: #### L 500.2500, L100.0100 ####[facility] [address] [place], [address] BUN/CRE Normal 10-20 [facility] Comment on above: Result Comment: Canc elled via OM: Order cancelled - Patient discharged Performed By: #### L 500.2500, L100.0100 ####[facility] [address] [place], [address] Calcium Normal 7.6-11.0 [facility] Comment on above: Result Comment: Canc elled via OM: Order cancelled - Patient discharged Performed By: #### L 500.2500, L100.0100 ####[facility] [address] [place], [address] CL Normal 98-108 [facility] Comment on above: Result Comment: Canc elled via OM: Order cancelled - Patient discharged Performed By: #### L 500.2500, L100.0100 ####[facility] [address] [place], [address] CO2 Normal 21.0-32.0 [facility] Comment on above: Result Comment: Canc elled via OM: Order cancelled - Patient discharged Performed By: #### L 500.2500, L100.0100 ####[facility] [address] [place], [address] CREAT,SERUM Normal 0.70-1.20 [facility] Comment on above: Result Comment: Canc elled via OM: Order cancelled - Patient discharged Performed By: #### L 500.2500, L100.0100 ####[facility] [address] [place], [address] eGFR Normal >60 [facility] Comment on above: Result Comment: Canc elled via OM: Order cancelled - Patient discharged Performed By: #### L 500.2500, L100.0100 ####[facility] [address] [place], [address] GAP Normal 5-15 [facility] Comment on above: Result Comment: Canc elled via OM: Order cancelled - Patient discharged Performed By: #### L 500.2500, L100.0100 ####[facility] [address] [place], [address] GLU Normal 70-99 [facility] Comment on above: Result Comment: Canc elled via OM: Order cancelled - Patient discharged Performed By: #### L 500.2500, L100.0100 ####[facility] [address] [place], [address] Potassium Normal 3.3-5.1 [facility] Comment on above: Result Comment: Canc elled via OM: Order cancelled - Patient discharged Performed By: #### L 500.2500, L100.0100 ####[facility] [address] [place], [address] Basic Metabolic Profile (BMP) Normal 133-145 [facility] Comment on above: Result Comment: Canc elled via OM: Order cancelled - Patient discharged Performed By: #### L 500.2500, L100.0100 ####[facility] [address] [place], [address] CBC W/Diff, Automatedon 05- Absolute Neut Normal 2.0-7.7 [facility] Comment on above: Result Comment: Canc elled via OM: Order cancelled - Patient discharged Performed By: #### L 500.2500, L100.0100 ####[facility] [address] [place], [address] HCT Normal 37-47 [facility] Comment on above: Result Comment: Canc elled via OM: Order cancelled - Patient discharged Performed By: #### L 500.2500, L100.0100 ####[facility] [address] [place], [address] HGB Normal 12.0-15.0 [facility] Comment on above: Result Comment: Canc elled via OM: Order cancelled - Patient discharged Performed By: #### L 500.2500, L100.0100 ####[facility] [address] [place], [address] MCH Normal 27.0-32.0 [facility] Comment on above: Result Comment: Canc elled via OM: Order cancelled - Patient discharged Performed By: #### L 500.2500, L100.0100 ####[facility] [address] [place], [address] MCHC Normal 32-36 [facility] Comment on above: Result Comment: Canc elled via OM: Order cancelled - Patient discharged Performed By: #### L 500.2500, L100.0100 ####[facility] [address] [place], [address] MCV Normal 81-99 [facility] Comment on above: Result Comment: Canc elled via OM: Order cancelled - Patient discharged Performed By: #### L 500.2500, L100.0100 ####[facility] [address] [place], [address] NEUT% Normal 47-70 [facility] Comment on above: Result Comment: Canc elled via OM: Order cancelled - Patient discharged Performed By: #### L 500.2500, L100.0100 ####[facility] [address] [place], [address] PLT Normal 150-450 [facility] Comment on above: Result Comment: Canc elled via OM: Order cancelled - Patient discharged Performed By: #### L 500.2500, L100.0100 ####[facility] [address] [place], [address] RBC Normal 4.2-5.4 [facility] Comment on above: Result Comment: Canc elled via OM: Order cancelled - Patient discharged Performed By: #### L 500.2500, L100.0100 ####[facility] [address] [place], [address] RDW CV Normal 11.6-14.6 [facility] Comment on above: Result Comment: Canc elled via OM: Order cancelled - Patient discharged Performed By: #### L 500.2500, L100.0100 ####[facility] [address] [place], [address] RDW SD Normal 35.1-43.9 [facility] Comment on above: Result Comment: Canc elled via OM: Order cancelled - Patient discharged Performed By: #### L 500.2500, L100.0100 ####[facility] [address] [place], [address] WBC Normal 4.4-11.0 [facility] Comment on above: Result Comment: Canc elled via OM: Order cancelled - Patient discharged Performed By: #### L 500.2500, L100.0100 ####[facility] [address] [place], [address] Absolute lymphocyte countOrd ered By: Catedevi Sargent on 07-08-2024 Lymphocytes Auto (Unsp spec) [#/Vol] 3.57 10*3/uL 0.83-4.51 [facility] Absolute neutrophil countOrd ered By: [facility]24 Neutrophils (Bld) [#/Vol] 4.5 10*3/uL 2.0-7.7 [facility] Anion gap in Serum or Plasma Ordered By: Cate Sargent on 07-08-2024 Anion gap [Moles/Vol] 9 mmol/L 5-15 [facility] Automated lymphocyte count a s percentage of total leukocytesOrdered By: Cate Sargent on 07-08-2024 Lymphocytes/100 WBC Auto (Unsp spec) 39.4 % 19-41 [facility] BUN/creatinine ratioOrdered By: Cate [facility]-2024 Urea nitrogen/Creatinine [Mass ratio] 30.0 mg/mg High 10-20 [facility] Basic Metabolic Profile (BMP )on 07-08-2024 BUN/CRE 30.0 RATIO High 10-20 [facility] Comment on above: Performed By: #### L 501.080 #### [facility] [address] [place], [address] Calcium [Mass/Vol] 8.4 mg/dL Normal 7.6-11.0 [facility] Comment on above: Performed By: #### L 501.080 #### [facility] [address] [place], [address] Chloride [Moles/Vol] 112 mmol/L High 98-108 [facility] Comment on above: Performed By: #### L 501.080 #### [facility] [address] [place], [address] CO2 [Moles/Vol] 17.6 mmol/L Low 21.0-32.0 [facility] Comment on above: Performed By: #### L 501.080 #### [facility] [address] [place], [address] Creatinine [Mass/Vol] 0.66 mg/dL Low 0.70-1.20 [facility] Comment on above: Performed By: #### L 501.080 #### [facility] [address] [place], [address] ECRCL 114.35 ml/min Normal 50-250 [facility] Comment on above: Performed By: #### L 501.080 #### [facility] [address] [place], [address] GAP 9 Normal 5-15 [facility] Comment on above: Performed By: #### L 501.080 #### [facility] [address] [place], [address] GFR/1.73 sq M.predicted among non-blacks MDRD (S/P/Bld) [Vol rate/Area] 100 mL/min/{1.73_m2} Normal >60 [facility] Comment on above: Result Comment: mL/m in/1.73m2 CKD-EPI Creatinine Equation (2020) Performed By: #### L 501.080 #### [facility] [address] [place], [address] Glucose [Mass/Vol] 149 mg/dL High 70-99 [facility] Comment on above: Performed By: #### L 501.080 #### [facility] [address] [place], [address] Potassium [Moles/Vol] 3.3 mmol/L Normal 3.3-5.1 [facility] Comment on above: Performed By: #### L 501.080 #### [facility] [address] [place], [address] Sodium [Moles/Vol] 138 mmol/L Normal 133-145 [facility] Comment on above: Performed By: #### L 501.080 #### [facility] [address] [place], [address] Urea nitrogen [Mass/Vol] 20 mg/dL High 4-19 [facility] Comment on above: Performed By: #### L 501.080 #### [facility] [address] [place], [place], [address] Basophil percentageOrdered B y: Cate Rosetta on 07-08-2024 Basophils/100 WBC (Bld) 0.6 % 0-[address] [facility] CBC W/Diff, Automatedon 06-22 PLT MORPH GIANT Normal [facility] Comment on above: Performed By: #### L 501.080 #### [facility] [address] [place], [address] REACTIVE LYMPH 2+ Normal [facility] Comment on above: Performed By: #### L 501.080 #### [facility] [address] [place], [address] Carbon dioxide, total [Moles /volume] in Central venous bloodOrdered By: Cate Mcgowanrashel on 07-08-2024 CO2 [Moles/Vol] 17.6 mmol/L Low 21.0-32.0 [facility] Chloride assayOrdered By: Na na Rosetta on 07-08-2024 Chloride [Moles/Vol] 112 mmol/L High 98-108 [facility] Discharge Instructionon 06-22 Discharge Instruction [facility] Medical Records Department [address] [place] [address] Instructions for Home/Discharge Instructions 07/08/24 1010 MR#: [id number] Acct: [id number] Name: ROBLIGIA DEVAUGHN Rep #: [id number] : 1960 63 From: Cate Sargent MD [...] MD; Dr. Pancho Tran MD Signed Normal [facility] Eosinophil percentageOrdered By: Cate Sargent on 07-08-2024 Eosinophils/100 WBC (Bld) 1.9 % 0-5 [facility] Erythrocyte distribution wid th ratioOrdered By: Cate Sargent on 07-08-2024 Erythrocyte distribution width (RBC) [Ratio] 14.1 % 11.6-14.6 [facility] Erythrocyte distribution wid th standard deviationOrdered By: Cate Sargent on 07-08-2024 Erythrocyte distribution width (RBC) [Ratio] 42.8 fl 35.1-43.9 [facility] Glomerular filtration rate ( GFR) estimation/1.73 sq m using serum, plasma, or whole bOrdered By: Cate Sargent on 07-08-2024 GFR/1.73 sq M.predicted among non-blacks MDRD (S/P/Bld) [Vol rate/Area] 100 mL/min/{1.73_m2} >60 [facility] Comment on above: mL/min/1.73m2 CKD-EP I Creatinine Equation (2020) Hematocrit Auto (Bld) [Volum e fraction]Ordered By: Cate Sargent on 07-08-2024 Hematocrit (Bld) [Volume fraction] 39.8 % 37-47 [facility] Hemoglobin measurementOrdere d By: Cate Sargent on 07-08-2024 Hemoglobin (Bld) [Mass/Vol] 13.7 g/dL 12.0-15.0 [facility] Immature granulocytes/100 WB C Auto (Bld)Ordered By: Cate Sargent on 07-08-2024 Immature granulocytes/100 WBC (Bld) 0.300 % 0.0-0.9 [facility] Comment on above: IG% - Immature Granu locytes (promyelocytes, myelocytes and metamyelocytes) > 1% indicates that a LEFT SHIFT is Present. MCV (mean corpuscular volume ) determinationOrdered By: Cate Sargent on 07-08-2024 MCV (RBC) [Entitic vol] 83.1 fL 81-[address] [facility] Mean corpuscular hemoglobin (MCH) determinationOrdered By: Cate Sargent on 07-08-2024 MCH (RBC) [Entitic mass] 28.6 pg 27.0-32.0 [facility] Mean corpuscular hemoglobin concentration (MCHC) determinationOrdered By: Cate Sargent on 07-08-2024 MCHC (RBC) [Mass/Vol] 34.4 g/dL 32-36 [facility] Mean platelet volume determi nationOrdered By: Cate Sargent on 07-08-2024 Platelet mean volume (Bld) [Entitic vol] 10.8 fL 6.2-12.0 [facility] Monocyte percentageOrdered B y: Cate Sargent on 07-08-2024 Monocytes/100 WBC (Bld) 8.0 % 0-[address] [facility] Neutrophil percentageOrdered By: Cate Sargent on 07-08-2024 Neutrophils/100 WBC (Bld) 49.8 % 47-70 [facility] Nucleated red blood cell per centageOrdered By: Cate Sargent on 07-08-2024 Nucleated RBC/100 WBC (Bld) [Ratio] 0 % 0-5 [facility] Platelet countOrdered By: Na liza Sargent on 07-08-2024 Platelets (Bld) [#/Vol] 222 10*3/uL 150-450 [facility] Platelet morphologyOrdered B y: Cate Sargent on 07-08-2024 Platelet morphology finding Nom (Bld) GIANT [facility] Potassium measurement (mass/ volume)Ordered By: Cate Sargent on 07-08-2024 Potassium (Unsp spec) [Mass/Vol] 3.3 mmol/L 3.3-5.1 [facility] RBC Auto (Bld) [#/Vol]Ordere d By: Catedevi Sargent on 07-08-2024 RBC (Bld) [#/Vol] 4.79 10*6/uL 4.2-5.4 [facility] Serum creatinine measurement (mass/volume)Ordered By: Cate Sargent on 07-08-2024 Creatinine [Mass/Vol] 0.66 mg/dL Low 0.70-1.20 [facility] Serum glucose measurement (m ass/volume)Ordered By: Cate Sargent on 07-08-2024 Glucose [Mass/Vol] 149 mg/dL High 70-99 [facility] Serum or plasma calcium ricky urement (mass/volume)Ordered By: Cate Sargent on 07-08-2024 Calcium [Mass/Vol] 8.4 mg/dL 7.6-11.0 [facility] Serum or plasma urea nitroge n measurement (mass/volume)Ordered By: Cate Sargent on 07-08-2024 Urea nitrogen [Mass/Vol] 20 mg/dL High 4-19 [facility] Sodium levelOrdered By: Catedevi Sargent on 07-08-2024 Sodium [Moles/Vol] 138 mmol/L 133-145 [facility] White blood cell (WBC) count Ordered By: Cate Sargent on 07-08-2024 WBC (Bld) [#/Vol] 9.1 10*3/uL 4.4-11.0 [facility] Basic Metabolic Profile (BMP )on 07-07-2024 BUN/CRE 45.1 RATIO High 10-20 [facility] Comment on above: Performed By: #### L 100.0100, L500.2500 #### [facility] [address] [place], [address] Calcium [Mass/Vol] 8.5 mg/dL Normal 7.6-11.0 [facility] Comment on above: Performed By: #### L 100.0100, L500.2500 #### [facility] [address] [place], [address] Chloride [Moles/Vol] 106 mmol/L Normal 98-108 [facility] Comment on above: Performed By: #### L 100.0100, L500.2500 #### [facility] [address] [place], [address] CO2 [Moles/Vol] 13.6 mmol/L Low 21.0-32.0 [facility] Comment on above: Performed By: #### L 100.0100, L500.2500 #### [facility] [address] [place], [address] Creatinine [Mass/Vol] 1.00 mg/dL Normal 0.70-1.20 [facility] Comment on above: Performed By: #### L 100.0100, L500.2500 #### [facility] [address] [place], [address] ECRCL 75.47 ml/min Normal 50-250 [facility] Comment on above: Performed By: #### L 100.0100, L500.2500 #### [facility] [address] [place], [address] GAP 13 Normal 5-15 [facility] Comment on above: Performed By: #### L 100.0100, L500.2500 #### [facility] [address] [place], [address] GFR/1.73 sq M.predicted among non-blacks MDRD (S/P/Bld) [Vol rate/Area] 64 mL/min/{1.73_m2} Normal >60 [facility] Comment on above: Result Comment: mL/m in/1.73m2 CKD-EPI Creatinine Equation (2020) Performed By: #### L 100.0100, L500.2500 #### [facility] [address] [place], [address] Glucose [Mass/Vol] 154 mg/dL High 70-99 [facility] Comment on above: Performed By: #### L 100.0100, L500.2500 #### [facility] [address] [place], [address] Potassium [Moles/Vol] 3.1 mmol/L Low 3.3-5.1 [facility] Comment on above: Performed By: #### L 100.0100, L500.2500 #### [facility] [address] [place], [address] Sodium [Moles/Vol] 132 mmol/L Low 133-145 [facility] Comment on above: Performed By: #### L 100.0100, L500.2500 #### [facility] [address] [place], [address] Urea nitrogen [Mass/Vol] 45 mg/dL High 4-19 [facility] Comment on above: Performed By: #### L 100.0100, L500.2500 #### [facility] [address] [place], [address] Bedside Glucoseon 07-07-2024 FINGERSTICK GLU 174 mg/dL High 74-106 [facility] Comment on above: Result Comment: SHAMA GEMENT OF PATIENT CARE PER NURSING PROTOCOL Performed By: #### L 501.080 #### [facility] [address] [place], [address] FINGERSTICK GLU 172 mg/dL High 74-106 [facility] Comment on above: Result Comment: SHAMA GEMENT OF PATIENT CARE PER NURSING PROTOCOL Performed By: #### L 100.0100, L500.2500 #### [facility] [address] [place], [address] FINGERSTICK GLU 196 mg/dL High 74-106 [facility] Comment on above: Result Comment: SHAMA GEMENT OF PATIENT CARE PER NURSING PROTOCOL Performed By: #### L 501.080 ####[facility] [address] [place], [address] FINGERSTICK GLU 176 mg/dL High 74-106 [facility] Comment on above: Result Comment: SHAMA GEMENT OF PATIENT CARE PER NURSING PROTOCOL Performed By: #### L 501.080 ####[facility] [address] [place], [address] FINGERSTICK GLU 163 mg/dL High 74-106 [facility] Comment on above: Result Comment: SHAMA GEMENT OF PATIENT CARE PER NURSING PROTOCOL Performed By: #### L 100.0100, L500.2500 #### [facility] [address] [place], [address] Bilirubin directOrdered By: Alejandra Weiner on 07-07-2024 Bilirubin.direct [Mass/Vol] 0.27 mg/dL 0.00-0.30 [facility] Bilirubin, totalOrdered By: Alejandra Weiner on 07-07-2024 Bilirubin [Mass/Vol] 0.69 mg/dL 0.00-1.30 [facility] CBC W/Diff, Automatedon 06-22 Absolute Lymph 4.17 X10 3/uL Normal 0.83-4.51 [facility] Comment on above: Performed By: #### L 100.0100, L500.2500 #### [facility] [address] [place], [address] Absolute Neut 4.3 X10 3/uL Normal 2.0-7.7 [facility] Comment on above: Performed By: #### L 100.0100, L500.2500 #### [facility] [address] [place], [address] Basophils/100 WBC (Bld) 0.3 % Normal 0-[address] [facility] Comment on above: Performed By: #### L 100.0100, L500.2500 #### [facility] [address] [place], [address] Eosinophils/100 WBC (Bld) 1.7 % Normal 0-5 [facility] Comment on above: Performed By: #### L 100.0100, L500.2500 #### [facility] [address] [place], [address] Erythrocyte distribution width (RBC) [Ratio] 14.0 % Normal 11.6-14.6 [facility] Comment on above: Performed By: #### L 100.0100, L500.2500 #### [facility] [address] [place], [address] Hematocrit (Bld) [Volume fraction] 47.3 % High 37-47 [facility] Comment on above: Performed By: #### L 100.0100, L500.2500 #### [facility] [address] [place], [address] Hemoglobin (Bld) [Mass/Vol] 16.1 g/dL High 12.0-15.0 [facility] Comment on above: Performed By: #### L 100.0100, L500.2500 #### [facility] [address] [place], [address] IG% 0.300 Normal 0.0-0.9 [facility] Comment on above: Result Comment: IG% - Immature Granulocytes (promyelocytes, myelocytes and metamyelocytes) > 1% indicates that a LEFT SHIFT is Present. Performed By: #### L 100.0100, L500.2500 #### [facility] [address] [place], [address] Lymphocytes/100 WBC (Bld) 43.3 % High 19-41 [facility] Comment on above: Performed By: #### L 100.0100, L500.2500 #### [facility] [address] [place], [address] MCH (RBC) [Entitic mass] 28.4 pg Normal 27.0-32.0 [facility] Comment on above: Performed By: #### L 100.0100, L500.2500 #### [facility] [address] [place], [address] MCHC (RBC) [Mass/Vol] 34.0 g/dL Normal 32-36 [facility] Comment on above: Performed By: #### L 100.0100, L500.2500 #### [facility] [address] [place], [address] MCV (RBC) [Entitic vol] 83.4 fL Normal 81-[address] [facility] Comment on above: Performed By: #### L 100.0100, L500.2500 #### [facility] [address] [place], [address] Monocytes/100 WBC (Bld) 9.6 % Normal 0-[address] [facility] Comment on above: Performed By: #### L 100.0100, L500.2500 #### [facility] [address] [place], [address] Neutrophils/100 WBC (Bld) 44.8 % Low 47-70 [facility] Comment on above: Performed By: #### L 100.0100, L500.2500 #### [facility] [address] [place], [address] Nucleated RBC (Bld) [#/Vol] 0 10*3/uL Normal 0-5 [facility] Comment on above: Performed By: #### L 100.0100, L500.2500 #### [facility] [address] [place], [address] Platelet mean volume (Bld) [Entitic vol] 11.1 fL Normal 6.2-12.0 [facility] Comment on above: Performed By: #### L 100.0100, L500.2500 #### [facility] [address] [place], [address] Platelets (Bld) [#/Vol] 289 10*3/uL Normal 150-450 [facility] Comment on above: Performed By: #### L 100.0100, L500.2500 #### [facility] [address] [place], [address] RBC (Bld) [#/Vol] 5.67 10*6/uL High 4.2-5.4 [facility] Comment on above: Performed By: #### L 100.0100, L500.2500 #### [facility] [address] [place], [address] RDW SD 42.4 fl Normal 35.1-43.9 [facility] Comment on above: Performed By: #### L 100.0100, L500.2500 #### [facility] [address] [place], [address] WBC (Bld) [#/Vol] 9.6 10*3/uL Normal 4.4-11.0 [facility] Comment on above: Performed By: #### L 100.0100, L500.2500 #### [facility] [address] [place], [address] Comprehensive Metabolic Prof paon 07-07-2024 Albumin/Globulin [Mass ratio] 1.1 {ratio} Normal 0.9-2.4 [facility] Comment on above: Performed By: #### L 100.0100, L500.2500 #### [facility] [address] [place], [address] ENTERIC PATHOGEN PANEL STOOL on 07-07-2024 EP [...] been changed. 07/08/24 0707 by DEVON Alexander [facility] Comment on above: Performed By: #### M 100.637 ####[facility] [address] [facility] [address] [place], [place], [address] Free T3on 07-07-2024 Free T3 [Mass/Vol] 4.1 pg/mL High 2.18-3.98 [facility] Comment on above: Performed By: #### L 501.080 #### [facility] [address] [facility] [address] [place], [place], [address] [facility] deOrdered By: Cate Sargent on 07-07-2024 Glucose [Mass/Vol] 174 mg/dL High 74-106 [facility] Comment on above: MANAGEMENT OF PATIEN T CARE PER NURSING PROTOCOL H AND P Exam - Hospitaliston 07-07-2024 H&P Exam - Hospitalist [facility] Medical Records Department [address] [place] [address] H P Exam - Hospitalist 07/07/24 0007 MR#: [id number] Acct: [id number] Name: LIGIA RIVAS Rep #: [id number] : 1960 63 From: Alejandra Weiner MD PCP: Dr. Pancho Tran MD Status:ADM YECENIA Location: [place] [address] HPI - General General Date of Admission: [...] 01/10/24 Rx (Jardiance) Held on 07/06/24. Instructions: MD [...] Heart dise (more content not included)... Normal [facility] normalized rat io (INR) calculationOrdered By: Alejandra Weiner on 07-07-2024 INR Coag (Bld) [Relative time] 1.1 {INR} [facility] - Chemistry and C hemistry - challengeOrdered By: Alejandra Weiner on 07-07-2024 AST [Catalytic activity/Vol] 23 U/L <32 [facility] Liver Profileon 07-07-2024 Albumin [Mass/Vol] 3.8 g/dL Normal 3.4-4.8 [facility] Comment on above: Performed By: #### L 100.0100, L500.2500 #### [facility] [address] [place], [address] ALK PHOS 112 U/L High 35-104 [facility] Comment on above: Performed By: #### L 100.0100, L500.2500 #### [facility] [address] [place], [address] ALT [Catalytic activity/Vol] 26 U/L Normal <=34 [facility] Comment on above: Performed By: #### L 100.0100, L500.2500 #### [facility] [address] [place], [address] AST [Catalytic activity/Vol] 23 U/L Normal <=31 [facility] Comment on above: Performed By: #### L 100.0100, L500.2500 #### [facility] [address] [place], [address] Bilirubin [Mass/Vol] 0.69 mg/dL Normal 0.00-1.30 [facility] Comment on above: Performed By: #### L 100.0100, L500.2500 #### [facility] [address] [place], [address] Bilirubin.direct [Mass/Vol] 0.27 mg/dL Normal 0.00-0.30 [facility] Comment on above: Performed By: #### L 100.0100, L500.2500 #### [facility] [address] [place], [address] Globulin (S) [Mass/Vol] 3.5 g/dL Normal 2.2-4.[address] [facility] Comment on above: Performed By: #### L 100.0100, L500.2500 #### [facility] [address] [place], [address] T PROT 7.3 g/dL Normal 5.9-8.4 [facility] Comment on above: Performed By: #### L 100.0100, L500.2500 #### [facility] [address] [place], [address] Magnesiumon 07-07-2024 Magnesium [Mass/Vol] 2.2 mg/dL Normal 1.5-2.2 [facility] Comment on above: Performed By: #### L 100.0100, L500.2500 #### [facility] [address] [place], [address] Magnesium measurement (mass/ volume)Ordered By: Alejandra Weiner on 07-07-2024 Magnesium (Unsp spec) [Mass/Vol] 2.2 mg/dL 1.5-2.2 [facility] Phosphoruson 07-07-2024 Phosphate [Mass/Vol] 3.4 mg/dL Normal 2.7-4.5 [facility] Comment on above: Performed By: #### L 100.0100, L500.2500 #### [facility] [address] [place], [address] Prothrombin Time w/INRon INR Coag (PPP) [Relative time] 1.1 {INR} Normal [facility] Comment on above: Performed By: #### L 100.0100, L500.2500 #### [facility] [address] [place], [place], [address] PT Coag (PPP) [Time] 14.4 s Normal 11.7-14.9 [facility] Comment on above: Performed By: #### L 100.0100, L500.2500 #### [facility] [address] [place], [place], [address] Prothrombin timeOrdered By: Alejandra Weiner on 07-07-2024 PT Coag (PPP) [Time] 14.4 s 11.7-14.9 [facility] Serum globulin measurementOr dered By: Alejandra Weiner on 07-07-2024 Globulin (S) [Mass/Vol] 3.5 g/dL 2.2-4.[address] [facility] Serum or plasma alanine webber otransferase (ALT) measurementOrdered By: Alejandra Weiner on 07-07-2024 ALT [Catalytic activity/Vol] 26 U/L <35 [facility] Serum or plasma albumin ricky urement (mass/volume)Ordered By: Alejandra Weiner on 07-07-2024 Albumin [Mass/Vol] 3.8 g/dL 3.4-4.8 [facility] Serum or plasma albumin/glob ulin mass ratioOrdered By: Alejandra Weiner on 07-07-2024 Albumin/Globulin [Mass ratio] 1.1 {ratio} 0.9-2.4 [facility] Serum or plasma alkaline usman sphatase measurementOrdered By: Alejandra Weiner on 07-07-2024 ALP [Catalytic activity/Vol] 112 U/L High 35-104 [facility] TSH DL <= 0.005 mIU/L QnOrde red By: Alejandra Weiner on 07-07-2024 TSH Qn 0.617 uIU/mL 0.300-4.200 [facility] Thyroid Stim Hormone (TSH)on 07-07-2024 TSH 0.617 uIU/mL Normal 0.300-4.200 [facility] Comment on above: Performed By: #### L 100.0100, L500.2500 #### [facility] [address] [place], [address] Total proteinOrdered By: Real Weiner on 07-07-2024 Protein [Mass/Vol] 7.3 g/dL 5.9-8.4 [facility] 12 Lead EKGon 07-06-2024 12 Lead EKG [facility] [address] [place] [address] 12 Lead EKG 07/06/242044 MR#: [id number] Acct: [id number] Name: LIGIA RIVAS Rep #: [id number] : 1960 63 From: Tim Carballo MD Attending Dr: Dr. Cate Sargent MD Status: DI S IN Ordering Dr: Mahendra Devine MD Date: 07/06/24 Location: U Sex: F UTD Admitted: 07/07/24 Test Reason : Blood Pressure : */* mmHG Vent. Rate : 103 BPM Atrial Rate : 103 BPM P-R Int : 154 ms QRS Dur : 88 ms QT Int : 358 ms P-R-T Axes : 38 -1 138 degrees QTcB Int : 468 ms Sinus tachycardia T wave abnormality, consider lateral ischemia Abnormal ECG Confirmed by TIM CARBALLO MD ([id number]), greeting card editor RAQUEL NEELY ([id number]) on 07/10/2024 8:42:59 AM Referred By: Confirmed By: TIM CARBALLO MD 07/10/24 0843 Date Tim Carballo MD CC: Dr. Mahendra Devine MD; Dr. Pancho Tran MD; Dr. Cate Sargent MD Signed Normal [place] Abdomen/Pelvis W IV Cont ONL Yon 07-06-2024 Abdomen/Pelvis W IV Cont ONLY [facility] Imaging Services [address] [place] [address] Abdomen/Pelvis W IV Cont ONLY MR#: [id number] Acct: [id number] Name: LIGIA RIVAS Rep #: [id number] : 1960 F 63 From: Leonardo Nava MD PCP: Dr. Pancho Tran MD Status: REG Study: Abdomen/Pelvis W IV Cont ONLY Date of Exam: Exam# [id number] Ordering Dr: Mahendra Devine MD PROCEDURE: ABDOMEN/PELVIS [...] diverticulosis. 3. Multivessel coronary calcifications. Reading Location: [id number] CC: Dr. Mahendra Devine MD; Dr. Pancho Tran MD [employer] Sal[employer] Compounder: Signed Normal [place] Absolute lymphocyte countOrd ered By: Mahendra Devine on 07-06-2024 Lymphocytes Auto (Unsp spec) [#/Vol] 3.61 10*3/uL 0.83-4.51 [place] Absolute lymphocyte countOrd ered By: Manan Escobar on 07-06-2024 Lymphocytes Auto (Unsp spec) [#/Vol] 2.88 10*3/uL 0.83-4.51 [place] Absolute neutrophil countOrd ered By: Mahendra Devine on 07-06-2024 Neutrophils (Bld) [#/Vol] 6.3 10*3/uL 2.0-7.7 [place] Absolute neutrophil countOrd ered By: Manan Escobar on 07-06-2024 Neutrophils (Bld) [#/Vol] 6.1 10*3/uL 2.0-7.7 [place] Anion gap in Serum or Plasma Ordered By: Mahendra Devine on 07-06-2024 Anion gap [Moles/Vol] 17 mmol/L High 07-06 [facility] Anion gap in Serum or Plasma Ordered By: Caitlin Tilley on 07-06-2024 Anion gap [Moles/Vol] 19 mmol/L [facility] 07-06 [facility] Automated lymphocyte count a s percentage of total leukocytesOrdered By: Mahendra Devine on 07-06-2024 Lymphocytes/100 WBC Auto (Unsp spec) 32.3 % [place] Automated lymphocyte count a s percentage of total leukocytesOrdered By: Manan Escobar on 07-06-2024 Lymphocytes/100 WBC Auto (Unsp spec) 28.7 % [place] BUN/creatinine ratioOrdered By: Mahendra Devine on 07-06-2024 Urea nitrogen/Creatinine [Mass ratio] 40.9 mg/mg High 12-11 [place] BUN/creatinine ratioOrdered By: Caitlin Tilley on 07-06-2024 Urea nitrogen/Creatinine [Mass ratio] 40.0 mg/mg High 12-11 [place] Basophil percentageOrdered B y: Mahendra Devine on 07-06-2024 Basophils/100 WBC (Bld) 0.4 % 0-[address] [facility] Basophil percentageOrdered B y: Manan Escobar on 07-06-2024 Basophils/100 WBC (Bld) 0.5 % 0-[address] [facility] Bedside Glucoseon 07-06-2024 FINGERSTICK GLU 134 mg/dL High 74-106 [place] Comment on above: Result Comment: SHAMA GEMENT OF PATIENT CARE PER NURSING PROTOCOL Performed By: #### L 501.080 #### [place] [facility] [address] [facility] [address] FINGERSTICK GLU 156 mg/dL High 74-106 [place] Comment on above: Result Comment: SHAMA GEMENT OF PATIENT CARE PER NURSING PROTOCOL Performed By: #### L 501.080 #### [place] [facility] [address] [place], [address] FINGERSTICK GLU 189 mg/dL High -106 [place] Comment on above: Result Comment: SHAMA GEMENT OF PATIENT CARE PER NURSING PROTOCOL Performed By: #### L 501.080 #### [place] [facility] [address] [place], [address] Beta-Hydroxbytyrateon 2024 BETA-HYDROXYBUT 0.3 mmol/L Normal 0.0-0.3 [place] Comment on above: Performed By: #### L 501.6901, L500.4050 #### [facility] [address] [place], [address] Beta-hydroxybutyrateOrdered By: Mahendra Devine on 07-06-2024 Beta hydroxybutyrate [Mass/Vol] 0.3 mmol/L 0.0-0.3 [place] Bilirubin Test strip Ql (U)O rdered By: Mahendra Devine on 07-06-2024 Bilirubin Ql (U) 1 mg/dL High Negative [place] Comment on above: COLOR OF URINE MAY A FFECT DIPSTICK RESULTS. Bilirubin, totalOrdered By: Mahendra Devine on 07-06-2024 Bilirubin [Mass/Vol] 0.66 mg/dL 0.00-1.30 [facility] Bilirubin, totalOrdered By: Caitlin Tilley on 07-06-2024 Bilirubin [Mass/Vol] 0.56 mg/dL 0.00-1.30 [facility] CBC W/Diff, Automatedon 06-22 Absolute Lymph 3.61 X10 3/uL Normal 0.83-4.51 [place] Comment on above: Performed By: #### L 501.080 #### [place] [facility] [address] [place], [address] Absolute Neut 6.3 X10 3/uL Normal 2.0-7.7 [place] Comment on above: Performed By: #### L 501.080 #### [facility] [facility] [address] [place], [address] Basophils/100 WBC (Bld) 0.4 % Normal 0-[address] [facility] Comment on above: Performed By: #### L 501.080 #### [facility] [address] [place], [address] Eosinophils/100 WBC (Bld) 0.7 % Normal 0-5 [place] Comment on above: Performed By: #### L 501.080 #### [facility] [facility] [address] [place], [address] Erythrocyte distribution width (RBC) [Ratio] 14.2 % Normal 11.6-14.6 [place] Comment on above: Performed By: #### L 501.080 #### [facility] [address] [place], [address] Hematocrit (Bld) [Volume fraction] 52.2 % High 37-47 [place] Comment on above: Performed By: #### L 501.080 #### [facility] [facility] [address] [place], [address] Hemoglobin (Bld) [Mass/Vol] 17.9 g/dL High 12.0-15.0 [place] Comment on above: Performed By: #### L 501.080 #### [facility] [facility] [address] [place], [address] IG% 0.400 Normal 0.0-0.9 [place] Comment on above: Result Comment: IG% - Immature Granulocytes (promyelocytes, myelocytes and metamyelocytes) > 1% indicates that a LEFT SHIFT is Present. Performed By: #### L 501.080 #### [place] [facility] [address] [place], [address] Lymphocytes/100 WBC (Bld) 32.3 % Normal 19-41 [place] Comment on above: Performed By: #### L 501.080 #### [facility] [facility] [address] [place], [address] MCH (RBC) [Entitic mass] 28.5 pg Normal 27.0-32.0 [place] Comment on above: Performed By: #### L 501.080 #### [facility] [facility] [address] [place], [address] MCHC (RBC) [Mass/Vol] 34.3 g/dL Normal 32-36 [facility] Comment on above: Performed By: #### L 501.080 #### [place] [facility] [address] [place], [address] MCV (RBC) [Entitic vol] 83.0 fL Normal 81-[address] [facility] Comment on above: Performed By: #### L 501.080 #### [place] [facility] [address] [place], [address] Monocytes/100 WBC (Bld) 9.9 % Normal 0-[address] [facility] Comment on above: Performed By: #### L 501.080 #### [place] [facility] [address] [place], [address] Neutrophils/100 WBC (Bld) 56.3 % Normal 47-70 [place] Comment on above: Performed By: #### L 501.080 #### [place] [facility] [address] [place], [address] Nucleated RBC (Bld) [#/Vol] 0 10*3/uL Normal 0-5 [place] Comment on above: Performed By: #### L 501.080 #### [place] [facility] [address] [place], [address] Platelet mean volume (Bld) [Entitic vol] 11.1 fL Normal 6.2-12.0 [place] Comment on above: Performed By: #### L 501.080 #### [place] [facility] [address] [place], [address] Platelets (Bld) [#/Vol] 325 10*3/uL Normal 150-450 [place] Comment on above: Performed By: #### L 501.080 #### [place] [facility] [address] [place], [address] RBC (Bld) [#/Vol] 6.29 10*6/uL High 4.2-5.4 [facility] Comment on above: Performed By: #### L 501.080 #### [facility] [facility] [address] [place], [address] RDW SD 42.5 fl Normal 35.1-43.9 [place] Comment on above: Performed By: #### L 501.080 #### [place] [facility] [address] [place], [address] WBC (Bld) [#/Vol] 11.2 10*3/uL High 4.4-11.0 [facility] Comment on above: Performed By: #### L 501.080 #### [facility] [facility] [address] [place], [address] Absolute Lymph 2.88 X10 3/uL Normal 0.83-4.51 [place] Comment on above: Performed By: #### L 100.0100 #### [facility] [facility] [address] [place], [address] Absolute Neut 6.1 X10 3/uL Normal 2.0-7.7 [place] Comment on above: Performed By: #### L 100.0100 #### [place] [facility] [address] [place], [address] Basophils/100 WBC (Bld) 0.5 % Normal 0-[address] [facility] Comment on above: Performed By: #### L 100.0100 #### [place] [facility] [address] [place], [address] Eosinophils/100 WBC (Bld) 0.4 % Normal 0-5 [place] Comment on above: Performed By: #### L 100.0100 #### [facility] [facility] [address] [place], [address] Erythrocyte distribution width (RBC) [Ratio] 13.8 % Normal 11.6-14.6 [place] Comment on above: Performed By: #### L 100.0100 #### [facility] [facility] [address] [place], [address] Hematocrit (Bld) [Volume fraction] 52.4 % High 37-47 [place] Comment on above: Performed By: #### L 100.0100 #### [facility] [facility] [address] [place], [address] Hemoglobin (Bld) [Mass/Vol] 17.9 g/dL High 12.0-15.0 [place] Comment on above: Performed By: #### L 100.0100 #### [facility] [facility] [address] [place], [address] IG% 0.400 Normal 0.0-0.9 [place] Comment on above: Result Comment: IG% - Immature Granulocytes (promyelocytes, myelocytes and metamyelocytes) > 1% indicates that a LEFT SHIFT is Present. Performed By: #### L 100.0100 #### [facility] [facility] [address] [place], [address] Lymphocytes/100 WBC (Bld) 28.7 % Normal 19-41 [place] Comment on above: Performed By: #### L 100.0100 #### [facility] [facility] [address] [place], [address] MCH (RBC) [Entitic mass] 28.6 pg Normal 27.0-32.0 [place] Comment on above: Performed By: #### L 100.0100 #### [facility] [facility] [address] [place], [address] MCHC (RBC) [Mass/Vol] 34.2 g/dL Normal 32-36 [facility] Comment on above: Performed By: #### L 100.0100 #### [facility] [facility] [address] [place], [address] MCV (RBC) [Entitic vol] 83.7 fL Normal 81-[address] [facility] Comment on above: Performed By: #### L 100.0100 #### [facility] [facility] [address] [place], [address] Monocytes/100 WBC (Bld) 9.5 % Normal 0-[address] [facility] Comment on above: Performed By: #### L 100.0100 #### [facility] [facility] [address] [place], [address] Neutrophils/100 WBC (Bld) 60.5 % Normal 47-70 [place] Comment on above: Performed By: #### L 100.0100 #### [facility] [facility] [address] [place], [address] Nucleated RBC (Bld) [#/Vol] 0 10*3/uL Normal 0-5 [place] Comment on above: Performed By: #### L 100.0100 #### [facility] [facility] [address] [place], [address] Platelet mean volume (Bld) [Entitic vol] 11.2 fL Normal 6.2-12.0 [place] Comment on above: Performed By: #### L 100.0100 #### [facility] [facility] [address] [place], [address] Platelets (Bld) [#/Vol] 335 10*3/uL Normal 150-450 [place] Comment on above: Performed By: #### L 100.0100 #### [facility] [facility] [address] [place], [address] RBC (Bld) [#/Vol] 6.26 10*6/uL High 4.2-5.4 [facility] Comment on above: Performed By: #### L 100.0100 #### [facility] [facility] [address] [place], [address] RDW SD 42.2 fl Normal 35.1-43.9 [place] Comment on above: Performed By: #### L 100.0100 #### [facility] [facility] [address] [place], [address] WBC (Bld) [#/Vol] 10.1 10*3/uL Normal 4.4-11.0 [facility] Comment on above: Performed By: #### L 100.0100 #### [facility] [facility] [address] [place], [address] CO2 (BldV) [Moles/Vol]Ordere d By: Mahendra Devine on 07-06-2024 CO2 [Moles/Vol] 17 mmol/L Low 23-33 [place] Calculated very low density lipoprotein (VLDL) cholesterol measurementOrdered By: Caitlin Tilley on 07-06-2024 Calculated very low density lipoprotein (VLDL) cholesterol measurement 27 mg/dL 5-40 [place] Carbon dioxide, total [Moles /volume] in Central venous bloodOrdered By: Mahendra Devine on 07-06-2024 CO2 [Moles/Vol] 15.5 mmol/L Low 21.0-32.0 [place] Carbon dioxide, total [Moles /volume] in Central venous bloodOrdered By: Caitlin Tilley on 07-06-2024 CO2 [Moles/Vol] 11.0 mmol/L Low 21.0-32.0 [place] Chloride assayOrdered By: Juan Manuel Devine on 07-06-2024 Chloride [Moles/Vol] 100 mmol/L 98-108 [facility] Chloride assayOrdered By: Me glo Tilley on 07-06-2024 Chloride [Moles/Vol] 102 mmol/L 98-108 [facility] Comprehensive Metabolic Prof ilon 07-06-2024 Albumin [Mass/Vol] 4.5 g/dL Normal 3.4-4.8 [facility] Comment on above: Performed By: #### L 501.6901, L500.4050 #### [facility] [facility] [address] [place], [address] Albumin/Globulin [Mass ratio] 1.0 {ratio} Normal 0.9-2.4 [place] Comment on above: Performed By: #### L 501.6901, L500.4050 #### [facility] [address] [place], [address] ALK PHOS 133 U/L High 35-104 [place] Comment on above: Performed By: #### L 501.6901, L500.4050 #### [facility] [address] [place], [address] ALT [Catalytic activity/Vol] 34 U/L Normal <=34 [place] Comment on above: Performed By: #### L 501.6901, L500.4050 #### [facility] [address] [place], [address] AST [Catalytic activity/Vol] 29 U/L Normal <=31 [place] Comment on above: Performed By: #### L 501.6901, L500.4050 #### [facility] [facility] [address] [place], [address] Bilirubin [Mass/Vol] 0.66 mg/dL Normal 0.00-1.30 [facility] Comment on above: Performed By: #### L 501.6901, L500.4050 #### [facility] [facility] [address] [place], [address] BUN/CRE 40.9 RATIO High 10-20 [place] Comment on above: Performed By: #### L 501.6901, L500.4050 #### [facility] [facility] [address] [place], [address] Calcium [Mass/Vol] 9.3 mg/dL Normal 7.6-11.0 [facility] Comment on above: Performed By: #### L 501.6901, L500.4050 #### [facility] [facility] [address] [place], [address] Chloride [Moles/Vol] 100 mmol/L Normal 98-108 [facility] Comment on above: Performed By: #### L 501.6901, L500.4050 #### [facility] [address] [place], [address] CO2 [Moles/Vol] 15.5 mmol/L Low 21.0-32.0 [place] Comment on above: Performed By: #### L 501.6901, L500.4050 #### [facility] [facility] [address] [place], [address] Creatinine [Mass/Vol] 1.52 mg/dL High 0.70-1.20 [facility] Comment on above: Performed By: #### L 501.6901, L500.4050 #### [facility] [address] [place], [address] ECRCL 49.55 ml/min Low 50-250 [place] Comment on above: Performed By: #### L 501.6901, L500.4050 #### [facility] [address] [place], [address] GAP 17 High 5-15 [place] Comment on above: Performed By: #### L 501.6901, L500.4050 #### [facility] [address] [place], [address] GFR/1.73 sq M.predicted among non-blacks MDRD (S/P/Bld) [Vol rate/Area] 39 mL/min/{1.73_m2} Low >60 [place] Comment on above: Result Comment: mL/m in/1.73m2 CKD-EPI Creatinine Equation (2020) Performed By: #### L 501.6901, L500.4050 #### [facility] [address] [place], [address] Globulin (S) [Mass/Vol] 4.3 g/dL High 2.2-4.[address] [facility] Comment on above: Performed By: #### L 501.6901, L500.4050 #### [facility] [address] [place], [address] Glucose [Mass/Vol] 186 mg/dL High 70-99 [facility] Comment on above: Performed By: #### L 501.6901, L500.4050 #### [facility] [facility] [address] [place], [address] Potassium [Moles/Vol] 3.4 mmol/L Normal 3.3-5.1 [facility] Comment on above: Performed By: #### L 501.6901, L500.4050 #### [facility] [facility] [address] [place], [address] Sodium [Moles/Vol] 132 mmol/L Low 133-145 [facility] Comment on above: Performed By: #### L 501.6901, L500.4050 #### [facility] [address] [place], [address] T PROT 8.8 g/dL High 5.9-8.4 [place] Comment on above: Performed By: #### L 501.6901, L500.4050 #### [facility] [address] [place], [address] Urea nitrogen [Mass/Vol] 62 mg/dL High 4-19 [place] Comment on above: Performed By: #### L 501.6901, L500.4050 #### [facility] [address] [place], [address] Albumin [Mass/Vol] 4.5 g/dL Normal 3.4-4.8 [facility] Comment on above: Performed By: #### L 100.0100, L500.2500 #### [facility] [address] [place], [address] Albumin/Globulin [Mass ratio] 1.0 {ratio} Normal 0.9-2.4 [place] Comment on above: Performed By: #### L 100.0100, L500.2500 #### [facility] [address] [place], [address] ALK PHOS 133 U/L High 35-104 [place] Comment on above: Performed By: #### L 100.0100, L500.2500 #### [facility] [address] [place], [address] ALT [Catalytic activity/Vol] 35 U/L Normal <=34 [place] Comment on above: Performed By: #### L 100.0100, L500.2500 #### [facility] [address] [place], [address] AST [Catalytic activity/Vol] 28 U/L Normal <=31 [place] Comment on above: Performed By: #### L 100.0100, L500.2500 #### [facility] [facility] [address] [place], [address] Bilirubin [Mass/Vol] 0.56 mg/dL Normal 0.00-1.30 [facility] Comment on above: Performed By: #### L 100.0100, L500.2500 #### [facility] [facility] [address] [place], [address] BUN/CRE 40.0 RATIO High 10-20 [place] Comment on above: Performed By: #### L 100.0100, L500.2500 #### [facility] [facility] [address] [place], [address] Calcium [Mass/Vol] 9.2 mg/dL Normal 7.6-11.0 [facility] Comment on above: Performed By: #### L 100.0100, L500.2500 #### [facility] [facility] [address] [place], [address] Chloride [Moles/Vol] 102 mmol/L Normal 98-108 [facility] Comment on above: Performed By: #### L 100.0100, L500.2500 #### [facility] [address] [place], [address] CO2 [Moles/Vol] 11.0 mmol/L Low 21.0-32.0 [place] Comment on above: Performed By: #### L 100.0100, L500.2500 #### [facility] [address] [place], [address] Creatinine [Mass/Vol] 1.41 mg/dL High 0.70-1.20 [facility] Comment on above: Performed By: #### L 100.0100, L500.2500 #### [facility] [address] [place], [address] GAP 19 High 5-15 [place] Comment on above: Performed By: #### L 100.0100, L500.2500 #### [facility] [address] [place], [address] GFR/1.73 sq M.predicted among non-blacks MDRD (S/P/Bld) [Vol rate/Area] 42 mL/min/{1.73_m2} Low >60 [place] Comment on above: Result Comment: mL/m in/1.73m2 CKD-EPI Creatinine Equation (2020) Performed By: #### L 100.0100, L500.2500 #### [facility] [facility] [address] [place], [address] Globulin (S) [Mass/Vol] 4.3 g/dL High 2.2-4.[address] [facility] Comment on above: Performed By: #### L 100.0100, L500.2500 #### [facility] [address] [place], [address] Glucose [Mass/Vol] 185 mg/dL High 70-99 [facility] Comment on above: Performed By: #### L 100.0100, L500.2500 #### [facility] [address] [place], [address] Potassium [Moles/Vol] 3.3 mmol/L Normal 3.3-5.1 [facility] Comment on above: Performed By: #### L 100.0100, L500.2500 #### [facility] [address] [place], [address] Sodium [Moles/Vol] 132 mmol/L Low 133-145 [facility] Comment on above: Performed By: #### L 100.0100, L500.2500 #### [facility] [address] [place], [address] T PROT 8.8 g/dL High 5.9-8.4 [place] Comment on above: Performed By: #### L 100.0100, L500.2500 #### [facility] [address] [place], [address] Urea nitrogen [Mass/Vol] 56 mg/dL High 4-19 [place] Comment on above: Performed By: #### L 100.0100, L500.2500 #### [facility] [address] [place], [address] Emergency Department Summary on 07-06-2024 Emergency Department Summary [facility] Medical Records Department [address] [place] [address] Emergency Department Summary 07/06/24 MR#: [id number] Acct: [id number] Name: LIGIA RIVAS Rep #: [id number] : 1960 63 From: Mahendra Devine MD [...] fatigued with low energy. 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 She states that they are trying to wean her off Ozempic and insulin. She states that her blood sugars have been controlled recently. She does have type 2 diabetes, but was told that there is concerned that she has metabolic acidosis. This was based off the laboratory work that was drawn today. [facility] Medical History Anxiety and depression [...] surgery Social (more content not included)... Normal [place] [facility] Visit Reporton 07-06-2024 Endocrinology Visit Report [facility] [address] [place] [address] OFFICE VISIT Date of Service: 07/06/24 MR#: [id number] Acct: [id number] Name: LIGIA RIVAS Rep #: [id number] : 1960 Provider: ARCADIO dodd Age/Sex: 63/F Location: [facility] [place] Status: Signed Intake Vital Signs 04/13/24 09:43 [...] 3 current occupational status: employed current occupation: [employer] living pets and animals: Yes pets and [...] activity do (more content not included)... Normal [place] Eosinophil percentageOrdered By: Mahendra Devine on 07-06-2024 Eosinophils/100 WBC (Bld) 0.7 % 0-5 [place] Eosinophil percentageOrdered By: Manan Escobar on 07-06-2024 Eosinophils/100 WBC (Bld) 0.4 % 0-5 [place] Erythrocyte distribution wid th ratioOrdered By: Mahendra Devine on 07-06-2024 Erythrocyte distribution width (RBC) [Ratio] 14.2 % 11.6-14.6 [place] Erythrocyte distribution wid th ratioOrdered By: Manan Escobar on 07-06-2024 Erythrocyte distribution width (RBC) [Ratio] 13.8 % 11.6-14.6 [place] Erythrocyte distribution wid th standard deviationOrdered By: Mahendra Devine on 07-06-2024 Erythrocyte distribution width (RBC) [Ratio] 42.5 fl 35.1-43.9 [place] Erythrocyte distribution wid th standard deviationOrdered By: Manan Escobar on 07-06-2024 Erythrocyte distribution width (RBC) [Ratio] 42.2 fl 35.1-43.9 [place] Free [id number] By: Alejandra Weiner on 07-06-2024 Free T3 [Mass/Vol] 4.1 pg/mL High 2.18-3.98 [facility] Free T3on 07-06-2024 Free T3 [Mass/Vol] 3.8 pg/mL Normal 2.18-3.98 [facility] Comment on above: Performed By: #### L 100.0100, L500.2500 #### [facility] [place], [address] Free [id number] By: Sury on 07-06-2024 Free T3 [Mass/Vol] 3.8 pg/mL 2.18-3.98 [facility] Glomerular filtration rate ( GFR) estimation/1.73 sq m using serum, plasma, or whole bOrdered By: Mahendra Devine on 07-06-2024 GFR/1.73 sq M.predicted among non-blacks MDRD (S/P/Bld) [Vol rate/Area] 39 mL/min/{1.73_m2} Low >60 [place] Comment on above: mL/min/1.73m2 CKD-EP I Creatinine Equation (2020) Glomerular filtration rate ( GFR) estimation/1.73 sq m using serum, plasma, or whole bOrdered By: Caitlin Tilley on 07-06-2024 GFR/1.73 sq M.predicted among non-blacks MDRD (S/P/Bld) [Vol rate/Area] 42 mL/min/{1.73_m2} Low >60 [place] Comment on above: mL/min/1.73m2 CKD-EP I Creatinine Equation (2020) [facility] deOrdered By: Alejandra Wenier on 07-06-2024 Glucose [Mass/Vol] 134 mg/dL High 74-106 [facility] Comment on above: MANAGEMENT OF PATIEN T CARE PER NURSING PROTOCOL Hematocrit Auto (Bld) [Volum e fraction]Ordered By: Mahendra Devine on 07-06-2024 Hematocrit (Bld) [Volume fraction] 52.2 % High 37-47 [place] Hematocrit Auto (Bld) [Volum e fraction]Ordered By: Manan Escobar on 07-06-2024 Hematocrit (Bld) [Volume fraction] 52.4 % High 37-47 [place] Hemoglobin measurementOrdere d By: Mahendra Devine on 07-06-2024 Hemoglobin (Bld) [Mass/Vol] 17.9 g/dL High 12.0-15.0 [place] Hemoglobin measurementOrdere d By: Manan Escobar on 07-06-2024 Hemoglobin (Bld) [Mass/Vol] 17.9 g/dL High 12.0-15.0 [place] Hyaline casts LM.LPF (Urine sed) [#/Area]Ordered By: Mahendra Devine on 07-06-2024 Hyaline casts (Urine sed) [#/Area] 5 /[LPF] 0-5 [place] Immature granulocytes/100 WB C Auto (Bld)Ordered By: Mahendra Devine on 07-06-2024 Immature granulocytes/100 WBC (Bld) 0.400 % 0.0-0.9 [place] Comment on above: IG% - Immature Granu locytes (promyelocytes, myelocytes and metamyelocytes) > 1% indicates that a LEFT SHIFT is Present. Immature granulocytes/100 WB C Auto (Bld)Ordered By: Manan Escobar on 07-06-2024 Immature granulocytes/100 WBC (Bld) 0.400 % 0.0-0.9 [place] Comment on above: IG% - Immature Granu locytes (promyelocytes, myelocytes and metamyelocytes) > 1% indicates that a LEFT SHIFT is Present. Internal Medicine Office Vis luz 07-06-2024 Internal Medicine Office Visit [facility], [facility] [address] [place] [address] OFFICE VISIT Date of Service: 07/06/24 MR#: [id number] Acct: [id number] Name: LIGIA RIVAS Rep #: [id number] : 1960 Provider: BEVERLY Barajas Age/Sex: 63/F Location: [facility] Status: Signed Intake Vital Signs 05/24/24 12:15 [...] Reasons: ACUTE DIARRHEA AND VOMITING SINCE WEDNESDAY Contract Manager Required: No Is patient in pain?: Yes [...] 7.1% today and fasting sugars are 150's. [facility] Medical History Anxiety and depression Health [...] using laser (more content not included)... Normal [place] Ketones Test strip Ql (U)Ord ered By: Mahendra Devine on 07-06-2024 Ketones Ql (U) Negative Negative [place] LDL calc ser/plasOrdered By: Caitlin Tilley on 07-06-2024 Cholesterol in LDL [Mass/Vol] 51 mg/dL [place] Comment on above: Zhxpzusruv=013-596 m g/dL & Higher Ptxq=872 mg/dL or greater Laboratory - Chemistry and C hemistry - challengeOrdered By: Mahendra Devine on 07-06-2024 AST [Catalytic activity/Vol] 29 U/L <32 [place] Laboratory - Chemistry and C hemistry - challengeOrdered By: Caitlin Tilley on 07-06-2024 AST [Catalytic activity/Vol] 28 U/L <32 [place] [facility] - Hematology and Cell countsOrdered By: Caitlin Tilley on 07-06-2024 HbA1c (Bld) [Mass fraction] 7.1 % High 4.2-6.3 [place] Lipid Profileon 07-06-2024 CHOL:HDL 4.46 Normal [place] Comment on above: Performed By: #### L 100.0100, L500.2500 #### [facility] [address] [place], [place], [id number] (696) Cholesterol [Mass/Vol] 100 mg/dL Normal <=200 [facility] Comment on above: Result Comment: Chol esterol level, Desirable <200 mg/dL Borderline high cholesterol 200-239 mg/dL High cholesterol >=240 mg/dL Recommendations of the NCEP Adult Treatment Panel for the following risk-cutoff thresholds for the [place] population. Performed By: #### L 100.0100, L500.2500 #### [facility] [address] [place], [address] Cholesterol in HDL [Mass/Vol] 22 mg/dL Low [place] Comment on above: Result Comment: Janeth hines Cholesterol Education Program (NCEP) guidelines: <40 mg/dL: Low HDL-cholesterol (major risk factor for CHD) >= 60 mg/dL: High HDL-cholesterol (negative risk factor for CHD) HDL-cholesterol is affected by a number of factors, e.g. smoking, exercise, hormones, sex and age. Performed By: #### L 100.0100, L500.2500 #### [facility] [address] [place], [address] Cholesterol in LDL [Mass/Vol] 51 mg/dL Normal [place] Comment on above: Result Comment: Bord jmrike=603-955 mg/dL Higher Txtq=620 mg/dL or greater Performed By: #### L 100.0100, L500.2500 #### [facility] [address] [place], [address] Cholesterol in VLDL [Mass/Vol] 27 mg/dL Normal 5-40 [place] Comment on above: Performed By: #### L 100.0100, L500.2500 #### [facility] [address] [place], [address] Triglyceride [Mass/Vol] 133 mg/dL Normal [facility] Comment on above: Result Comment: The drugs N-Acetylcysteine and Metamizole may falsely depress this assay. Normal range: <150 mg/dL Borderline High: 150-199 mg/dL High: 200-499 mg/dL Very High: >500 mg/dL Performed By: #### L 100.0100, L500.2500 #### [facility] [address] [place], [address] MCV (mean corpuscular volume ) determinationOrdered By: Mahendra Devine on 07-06-2024 MCV (RBC) [Entitic vol] 83.0 fL 81-[address] [facility] MCV (mean corpuscular volume ) determinationOrdered By: Manan Escobar on 07-06-2024 MCV (RBC) [Entitic vol] 83.7 fL 81-[address] [facility] Mean corpuscular hemoglobin (MCH) determinationOrdered By: Mahendra Devine on 07-06-2024 MCH (RBC) [Entitic mass] 28.5 pg 27.0-32.0 [place] Mean corpuscular hemoglobin (MCH) determinationOrdered By: Manan Escobar on 07-06-2024 MCH (RBC) [Entitic mass] 28.6 pg 27.0-32.0 [place] Mean corpuscular hemoglobin concentration (MCHC) determinationOrdered By: Mahendra Devine on 07-06-2024 MCHC (RBC) [Mass/Vol] 34.3 g/dL 32-36 [facility] Mean corpuscular hemoglobin concentration (MCHC) determinationOrdered By: Manan Escobar on 07-06-2024 MCHC (RBC) [Mass/Vol] 34.2 g/dL 32-36 [facility] Mean platelet volume determi nationOrdered By: Mahendra Devine on 07-06-2024 Platelet mean volume (Bld) [Entitic vol] 11.1 fL 6.2-12.0 [place] Mean platelet volume determi nationOrdered By: Manan Escobar on 07-06-2024 Platelet mean volume (Bld) [Entitic vol] 11.2 fL 6.2-12.0 [place] Microscopic analysis of urin e for red blood cells (RBC)Ordered By: Mahendra Devine on 07-06-2024 Microscopic analysis of urine for red blood cells (RBC) 0 SEEN /hpf 0-5 [place] Monocyte percentageOrdered B y: Mahendra Devine on 07-06-2024 Monocytes/100 WBC (Bld) 9.9 % 0-[address] [facility] Monocyte percentageOrdered B y: Manan Escobar on 07-06-2024 Monocytes/100 WBC (Bld) 9.5 % 0-[address] [facility] Mucus LM Ql (Urine sed)Order ed By: Mahendra Devine on 07-06-2024 Mucus Ql (Urine sed) 0 SEEN /hpf [facility] Neutrophil percentageOrdered By: Mahendra Devine on 07-06-2024 Neutrophils/100 WBC (Bld) 56.3 % 47-70 [place] Neutrophil percentageOrdered By: Manan Escobar on 07-06-2024 Neutrophils/100 WBC (Bld) 60.5 % 47-70 [place] Nitrite Test strip Ql (U)Ord ered By: Mahendra Devine on 07-06-2024 Nitrite Ql (U) Negative Negative [place] No Panel InformationOrdered By: Mahendra Devine on 07-06-2024 Blood Gas Sample Site Not entered [facility] Blood Gas Specimen Type CARLOTA [facility] Oxygen Delivery Device Not entered [facility] Nucleated red blood cell per centageOrdered By: Mahendra Devine on 07-06-2024 Nucleated RBC/100 WBC (Bld) [Ratio] 0 % 0-5 [place] Nucleated red blood cell per centageOrdered By: Manan Escobar on 07-06-2024 Nucleated RBC/100 WBC (Bld) [Ratio] 0 % 0-5 [place] Platelet countOrdered By: Juan Manuel Devine on 07-06-2024 Platelets (Bld) [#/Vol] 325 10*3/uL 150-450 [place] Platelet countOrdered By: Delmy Escobar on 07-06-2024 Platelets (Bld) [#/Vol] 335 10*3/uL 150-450 [place] Potassium measurement (mass/ volume)Ordered By: Mahendra Devine on 07-06-2024 Potassium (Unsp spec) [Mass/Vol] 3.4 mmol/L 3.3-5.1 [place] Potassium measurement (mass/ volume)Ordered By: Caitlin Tilley on 07-06-2024 Potassium (Unsp spec) [Mass/Vol] 3.3 mmol/L 3.3-5.1 [place] Protein Test strip Ql (U)Ord ered By: Mahendra Devine on 07-06-2024 Protein Ql (U) 30 mg/dl High Negative [place] RBC Auto (Bld) [#/Vol]Ordere d By: Mahendra Devine on 07-06-2024 RBC (Bld) [#/Vol] 6.29 10*6/uL High 4.2-5.4 [facility] RBC Auto (Bld) [#/Vol]Ordere d By: Manan Escobar on 07-06-2024 RBC (Bld) [#/Vol] 6.26 10*6/uL High 4.2-5.4 [facility] Screening total cholesterol/ high density lipoprotein (HDL) cholesterol ratioOrdered By: Caitlin Tilley on 07-06-2024 Cholesterol.total/Adelaida sterol in HDL [Mass ratio] 4.46 {ratio} [place] Serum creatinine measurement (mass/volume)Ordered By: Mahendra Devine on 07-06-2024 Creatinine [Mass/Vol] 1.52 mg/dL High 0.70-1.20 [facility] Serum creatinine measurement (mass/volume)Ordered By: Caitlin Tilley on 07-06-2024 Creatinine [Mass/Vol] 1.41 mg/dL High 0.70-1.20 [facility] Serum globulin measurementOr dered By: Mahendra Devine on 07-06-2024 Globulin (S) [Mass/Vol] 4.3 g/dL High 2.2-4.[address] [facility] Serum globulin measurementOr dered By: Caitlin Tilley on 07-06-2024 Globulin (S) [Mass/Vol] 4.3 g/dL High 2.2-4.[address] [facility] Serum glucose measurement (m ass/volume)Ordered By: Mahendra Devine on 07-06-2024 Glucose [Mass/Vol] 186 mg/dL High 70-99 [facility] Serum glucose measurement (m ass/volume)Ordered By: Caitlin Tilley on 07-06-2024 Glucose [Mass/Vol] 185 mg/dL High 70-99 [facility] Serum or plasma alanine webber otransferase (ALT) measurementOrdered By: Mahendra Devine on 07-06-2024 ALT [Catalytic activity/Vol] 34 U/L <35 [place] Serum or plasma alanine webber otransferase (ALT) measurementOrdered By: Caitlin Tilley on 07-06-2024 ALT [Catalytic activity/Vol] 35 U/L <35 [place] Serum or plasma albumin ricky urement (mass/volume)Ordered By: Mahendra Devine on 07-06-2024 Albumin [Mass/Vol] 4.5 g/dL 3.4-4.8 [facility] Serum or plasma albumin ricky urement (mass/volume)Ordered By: Caitlin Tilley on 07-06-2024 Albumin [Mass/Vol] 4.5 g/dL 3.4-4.8 [facility] Serum or plasma albumin/glob ulin mass ratioOrdered By: Mahendra Devine on 07-06-2024 Albumin/Globulin [Mass ratio] 1.0 {ratio} 0.9-2.4 [place] Serum or plasma albumin/glob ulin mass ratioOrdered By: Caitlin Tilley on 07-06-2024 Albumin/Globulin [Mass ratio] 1.0 {ratio} 0.9-2.4 [place] Serum or plasma alkaline usman sphatase measurementOrdered By: Mahendra Devine on 07-06-2024 ALP [Catalytic activity/Vol] 133 U/L High 35-104 [place] Serum or plasma alkaline usman sphatase measurementOrdered By: Caitlin Tilley on 07-06-2024 ALP [Catalytic activity/Vol] 133 U/L High 35-104 [place] Serum or plasma calcium ricky urement (mass/volume)Ordered By: Mahendra Devine on 07-06-2024 Calcium [Mass/Vol] 9.3 mg/dL 7.6-11.0 [facility] Serum or plasma calcium ricky urement (mass/volume)Ordered By: Caitlin Tilley on 07-06-2024 Calcium [Mass/Vol] 9.2 mg/dL 7.6-11.0 [facility] Serum or plasma cholesterol in HDL measurement (mass/volume)Ordered By: Caitlin Tilley on 07-06-2024 Cholesterol in HDL [Mass/Vol] 22 mg/dL Low >40 [place] Comment on above: National Cholesterol Education Program (NCEP) guidelines:<40 mg/dL: Low HDL-cholesterol (major risk factor for CHD)>= 60 mg/dL: High HDL-cholesterol (negative risk factor for CHD)HDL-cholesterol is affected by a number of factors, e.g. smoking, exercise, hormones, sex and age. Serum or plasma cholesterol measurement (mass/volume)Ordered By: Caitlin Tilley on 07-06-2024 Cholesterol [Mass/Vol] 100 mg/dL <201 [facility] Comment on above: Cholesterol level, D esirable <200 mg/dLBorderline high cholesterol 200-239 mg/dLHigh cholesterol >=240 mg/dLRecommendations of the NCEP Adult Treatment Panel for the following risk-cutoff thresholds for the [place] population. Serum or plasma urea nitroge n measurement (mass/volume)Ordered By: Mahendra Devine on 07-06-2024 Urea nitrogen [Mass/Vol] 62 mg/dL High 06-10 [place] Serum or plasma urea nitroge n measurement (mass/volume)Ordered By: Caitlin Tilley on 07-06-2024 Urea nitrogen [Mass/Vol] 56 mg/dL High 06-10 [place] Sodium levelOrdered By: Mahendra Devine on 07-06-2024 Sodium [Moles/Vol] 132 mmol/L Low 133-145 [facility] Sodium levelOrdered By: Jorge Tilley on 07-06-2024 Sodium [Moles/Vol] 132 mmol/L Low 133-145 [facility] Squamous epithelial cells de tection in urine sediment by light microscopyOrdered By: Mahendra Devine on 07-06-2024 Epithelial cells.squamous LM Ql (Urine sed) 0-5 SEEN /hpf 5-10 [place] T4 Free Directon 07-06-2024 T4 FREE DIRECT 1.40 ng/dL Normal 0.76-1.46 [place] Comment on above: Performed By: #### L 100.0100, L500.2500 #### [facility] [address] [place], [address] T4 freeOrdered By: Sury on 07-06-2024 Free T4 [Mass/Vol] 1.40 ng/dL 0.76-1.46 [facility] TSH DL <= 0.005 mIU/L QnOrde red By: Caitlin Tilley on 07-06-2024 TSH Qn 1.580 uIU/mL 0.300-4.200 [place] Thyroid Stim Hormone (TSH)on 07-06-2024 TSH 1.580 uIU/mL Normal 0.300-4.200 [place] Comment on above: Performed By: #### L 100.0100, L500.2500 #### [facility] [address] [place], [place], [id number] Total proteinOrdered By: Xiomy Devine on 07-06-2024 Protein [Mass/Vol] 8.8 g/dL High 5.9-8.4 [facility] Total proteinOrdered By: Nova Tilley on 07-06-2024 Protein [Mass/Vol] 8.8 g/dL High 5.9-8.4 [facility] Triglycerides measurementOrd ered By: Caitlin Tilley on 07-06-2024 Triglyceride [Mass/Vol] 133 mg/dL <[address] [facility] Comment on above: The drugs N-Acetylcy steine and Metamizole may falsely depress this assay. Normal range: <150 mg/dLBorderline High: 150-199 mg/dLHigh: 200-499 mg/dLVery High: >500 mg/dL Urinalysis, Completeon 07-06 BACTERIA 1+ /hpf Normal None Seen [place] Comment on above: Order Comment: CLEAN CATCH Performed By: #### L 100.0100, L500.2500 #### [facility] [address] [place], [address] CAST,FINE GRAN 0-5 SEEN Normal 0-5 [place] Comment on above: Order Comment: CLEAN CATCH Performed By: #### L 100.0100, L500.2500 #### [facility] [address] [place], [address] CAST,HYALINE 5-10 SEEN Normal 0-5 [place] Comment on above: Order Comment: CLEAN CATCH Performed By: #### L 100.0100, L500.2500 #### [facility] [address] [place], [address] EPI,SQUAMOUS 0-5 SEEN Normal 5-10 [place] Comment on above: Order Comment: CLEAN CATCH Performed By: #### L 100.0100, L500.2500 #### [facility] [address] [place], [address] WBC 0-5 SEEN Normal 0-5 [place] Comment on above: Order Comment: CLEAN CATCH Performed By: #### L 100.0100, L500.2500 #### [facility] [address] [place], [address] Mucus Ql (Urine sed) 0 SEEN Normal [facility] Comment on above: Order Comment: CLEAN CATCH Performed By: #### L 100.0100, L500.2500 #### [facility] [address] [place], [address] RBC 0 SEEN Normal 0-5 [place] Comment on above: Order Comment: CLEAN CATCH Performed By: #### L 100.0100, L500.2500 #### [facility] [address] [place], [address] Urine clarityOrdered By: Xiomy Devine on 07-06-2024 Clarity (U) Clear Clear [place] Urine color determinationOrd ered By: Mahendra Devine on 07-06-2024 Color (U) Yellow Yellow [place] Urine glucose detectionOrder ed By: Mahendra Devine on 07-06-2024 Glucose Ql (U) Normal mg/dl Normal [place] Urine leukocyte esterase det ection by dipstickOrdered By: Mahendra Devine on 07-06-2024 Leukocyte esterase Test strip Ql (U) Negative Negative [place] Urine pHOrdered By: Mahendra walton on 07-06-2024 pH (U) 5.0 [pH] 5.0 - 8.0 [place] Urine sediment bacteria coun t by microscopy (number/high power field)Ordered By: Mahendra Devine on 07-06-2024 Bacteria LM.HPF (Urine sed) [#/Area] 1 /[HPF] None Seen [place] Urine sediment fine granular cast count by microscopy (number/low power field)Ordered By: Mahendra Devine on 07-06-2024 Fine Granular Casts LM.LPF (Urine sed) [#/Area] 0-5 SEEN /lpf 0-5 [place] Urine specific gravity measu rementOrdered By: Mahendra Devine on 07-06-2024 Specific gravity (U) [Rel density] 1.025 1.002-1.030 [place] Urine urobilinogen measureme ntOrdered By: Mahendra Devine on 07-06-2024 Urobilinogen Ql (U) Normal mg/dl Normal [facility] Venous Blood Gason 5 Blood Gas Type CARLOTA Normal [place] Comment on above: Performed By: #### L 9000.0810 #### [facility] [address] [place], [address] CO2 [Moles/Vol] 17 mmol/L Low 23-33 [place] Comment on above: Performed By: #### L 8999.0810 #### [facility] [address] [place], [address] FI02 21.0 Normal [place] Comment on above: Performed By: #### L 9000.0810 #### [facility] [address] [place], [address] HCO3 (Bld) [Moles/Vol] 16 mmol/L Low 22-26 [facility] Comment on above: Performed By: #### L 900.0810 #### [facility] [address] [place], [address] O2 Delivery Dev Not entered [facility] Comment on above: Performed By: #### L 9000.0810 #### [facility] [address] [place], [address] SITE Not entered [facility] Comment on above: Performed By: #### L 9000.0810 #### [facility] [address] [place], [address] VBG BE -10 mmol/L Low -1.0-3.5 [place] Comment on above: Performed By: #### L 9000.0810 #### [facility] [address] [place], [address] VBG pCO2 35.0 mmHg Low 41-51 [place] Comment on above: Performed By: #### L 900.0810 #### [facility] [address] [place], [address] VBG pH 7.28 Low 7.32-7.42 [place] Comment on above: Performed By: #### L 9000.0810 #### [facility] [address] [place], [address] VBG PO2 34 mmHg Normal 25-40 [place] Comment on above: Performed By: #### L 9000.0810 #### [facility] [address] [place], [address] VBG SO2 58 Normal 50-70 [place] Comment on above: Performed By: #### L 9000.0810 #### [facility] [address] [place], [address] Venous blood base excess leonardo surementOrdered By: Mahendra Devine on 07-06-2024 Base excess Calc (BldV) [Moles/Vol] -10 mmol/L Low -1.0-3.5 [place] Venous blood bicarbonate leonardo surementOrdered By: Mahendra Devine on 07-06-2024 HCO3 (Bld) [Moles/Vol] 16 mmol/L Low 22-26 [facility] Venous blood oxygen saturati on measurementOrdered By: Mahendra Devine on 07-06-2024 Oxygen saturation in Blood 58 % 50-70 [place] Venous blood pH measurementO rdered By: Mahendra Devine on 07-06-2024 pH (BldV) 7.28 [pH] Low 7.32-7.42 [place] Venous blood partial pressur e of carbon dioxide measurementOrdered By: Mahendra Devine on 07-06-2024 CO2 (BldV) [Partial pressure] 35.0 mm[Hg] Low 41-51 [place] Venous blood partial pressur e of oxygen measurementOrdered By: Mahendra Devine on 07-06-2024 Oxygen (BldV) [Partial pressure] 34 mm[Hg] 25-40 [place] Vitamin D,25 Hydroxyon 07-06 Vitamin D 25-OH 31.3 ng/mL Normal 30-100 [place] Comment on above: Result Comment: Erica min D Status Deficiency: <20 ng/mL (50nmol/L) Insufficiency: 20-30 ng/mL (50-75 nmol/L) Sufficiency: 30-100 ng/mL (75-250 nmol/L) Toxicity: >100 ng/mL (>250 nmol/L) Performed By: #### L 100.0100, L500.2500 #### [facility] [address] [place], [place], [address] White blood cell (WBC) count Ordered By: Mahendra Devine on 07-06-2024 WBC (Bld) [#/Vol] 11.2 10*3/uL High 4.4-11.0 [facility] White blood cell (WBC) count Ordered By: Manan Escobar on 07-06-2024 WBC (Bld) [#/Vol] 10.1 10*3/uL 4.4-11.0 [facility] White blood cell countOrdere d By: Mahendra Devine on 07-06-2024 White blood cell count 0-5 SEEN /hpf 0-5 [place] Bone density reportOrdered B y: Miki Ivan on 06-06-2024 Study report Skeletal system DXA [facility] Services [address] [place], [place] [address] Dexa Bone Density Study MR#: [id number] Acct: [id number] Name: LIGIA RIVAS Rep #: [id number] : 1960 F 63 From: Emerson Ivan MD PCP: Dr. Pancho Tran MD Status: R EG CLI Study:Dexa Bone Density Study Date of Exam: 06/01/24 Exam# [id number] Ordering Dr: Luke Tran MD PROCEDURE: DEXA [...] Recommend follow-up as clinically warranted. Reading Location: [place] [address] CC: Dr. Pancho Tran MD ~ Effervescent Salts Compounder: Signed [place] Breast imaging reportOrdered By: Esperanza Moreau on 06-02-2024 Study report [facility] Imaging Services [address] [place] [id number] SCRN MAMM (CAD)W/PERLA BILAT MR#: [id number] Acct: [id number] Name: LIGIA RIVAS Rep #: [id number] : 1960 F 63 From: Luz Moreau MD PCP: Dr. Pancho Tran MD Status: R EG CLI Study:SCRN MAMM (CAD)W/PERLA BILAT Date of Exa m: 06/01/24 Exam# [id number] Ordering Dr: Luke Tran MD EXAM: SCRN [...] be mailed to the patient. Reading Location: [facility] CC: Dr. Pancho Tran MD ~ Effervescent Salts Compounder: Signed [place] Dexa Bone Density Studyon Dexa Bone Density Study [facility] Imaging Services [address] [place] [address] Dexa Bone Density Study MR#: [id number] Acct: [id number] Name: LIGIA RIVAS Rep #: [id number] : 1960 F 63 From: Miki alcantar MD PCP: Dr. Pancho Tran MD Status: REG CLI Study: Dexa Bone Density Study Date of Exam: 06/01/24 Exam# [id number] Ordering Dr: Pancho Tran MD PROCEDURE: DEXA [...] Recommend follow-up as clinically warranted. Reading Location: [place] [address] CC: Dr. Pancho Tran MD Effervescent Salts Compounder: Signed Normal [place] SCRN MAMM (CAD)W/PERLA BILATo n 06-01-2024 SCRN MAMM (CAD)W/PERLA BILAT [facility] Imaging Services [address] [place] [address] SCRN MAMM (CAD)W/PERLA BILAT MR#: [id number] Acct: [id number] Name: LIGIA RIVAS Rep #: [id number] : 1960 F 63 From: Esperanza Moreau MD PCP: Dr. Pancho Tran MD Status: REG CLI Study: SCRN MAMM (CAD)W/PERLA BILAT Date of Exam: 05/23 Exam# [id number] Ordering Dr: Pancho Tran MD EXAM: SCRN [...] be mailed to the patient. Reading Location: [facility] CC: Dr. Pancho Tran MD Effervescent Salts Compounder: Signed Normal [place] PAP IG HPV APTIMA 16/18,45on 05-31-2024 ADEQ Comment Normal . [place] Comment on above: Order Comment: Speci men Comment: [id number] Comment: Source.............CervixSpecimen Comment: Other..............Post MenopausalSpecimen Comment: No. of containers..01 ThinPrep Vial Result Comment: Sati sfactory for evaluation. Endocervical and/or squamous metaplastic cells (endocervical component) are present. Performed By: #### L 100.0100, L500.2500 #### [facility] [address] [place], [place], [address] COMM . Normal . [place] Comment on above: Order Comment: Speci men Comment: [id number] Comment: Source.............CervixSpecimen Comment: Other..............Post MenopausalSpecimen Comment: No. of containers..01 ThinPrep Vial Performed By: #### L 100.0100, L500.2500 #### [facility] [address] [place], [place], [id number] COMMENT Comment Normal . [place] Comment on above: Order Comment: Speci men Comment: [id number] Comment: Source.............CervixSpecimen Comment: Other..............Post MenopausalSpecimen Comment: No. of containers..01 ThinPrep Vial Result Comment: This liquid based ThinPrep(R) pap test was screened with the use of an image guided system. Performed By: #### L 100.0100, L500.2500 #### [facility] [address] [place], [place], [id number] DIAG Comment Abnormal . [place] Comment on above: Order Comment: Speci men Comment: [id number] Comment: Source.............CervixSpecimen Comment: Other..............Post MenopausalSpecimen Comment: No. of containers..01 ThinPrep Vial Result Comment: EPIT HELIAL CELL ABNORMALITY. ATYPICAL SQUAMOUS CELLS OF UNDETERMINED SIGNIFICANCE (ASC-US). Performed By: #### L 100.0100, L500.2500 #### [facility] [address] [place], [place], [address] HPV APTIMA, HR Negative Normal Negative [place] Comment on above: Order Comment: Speci men Comment: [id number] Comment: Source.............CervixSpecimen Comment: Other..............Post MenopausalSpecimen Comment: No. of containers..01 ThinPrep Vial Result Comment: This nucleic acid amplification test detects fourteen high- risk HPV types (16,18,31,33,35,39,45,51,52,56,58,59,66,68) without differentiation. Performed By: #### L 100.0100, L500.2500 #### [facility] [address] [place], [address] HPV Alka Rfx Comment Normal . [facility] Comment on above: Order Comment: Speci men Comment: [id number] Comment: Source.............CervixSpecimen Comment: Other..............Post MenopausalSpecimen Comment: No. of containers..01 ThinPrep Vial Result Comment: Crit eria not met, HPV Genotype not performed. Performed at: - [address] [id number] Chief Telephone Operator: Palak Matson MD, Phone: [phone] Performed at: [facility] Cyto Histo [address] [place], [place] [id number] Chief Telephone Operator: Romulo Levin MD, Phone: [phone] Performed at: = - [address], [place] [id number] Chief Telephone Operator: Palak Matson MD, Phone: [phone] Performed By: #### L 100.0100, L500.2500 #### [facility] [address] [place], [place], [address] PAPSMR Comment Normal . [facility] Comment on above: Order Comment: Speci men Comment: [id number] Comment: Source.............CervixSpecimen Comment: Other..............Post MenopausalSpecimen Comment: No. [...] reports do occur. Performed By: #### L 100.0100, L500.2500 #### [facility] [address] [place], [place], [address] Path.prov.IDC-9 Comment Normal . [facility] Comment on above: Order Comment: Speci men Comment: [id number] Comment: Source.............CervixSpecimen Comment: Other..............Post MenopausalSpecimen Comment: No. of containers..01 ThinPrep Vial Result Comment: R87. 610 Performed By: #### L 100.0100, L500.2500 #### [facility] [address] [place], [place], [address] PERFORM Comment Normal . [facility] Comment on above: Order Comment: Speci men Comment: [id number] Comment: Source.............CervixSpecimen Comment: Other..............Post MenopausalSpecimen Comment: No. of containers..01 ThinPrep Vial Result Comment: Verenice Saldana, Loom Cleaner (ASCP) Performed By: #### L 100.0100, L500.2500 #### [facility] [address] [place], [address] RECOMM Comment Abnormal . [facility] Comment on above: Order Comment: Speci men Comment: [id number] Comment: Source.............CervixSpecimen Comment: Other..............Post MenopausalSpecimen Comment: No. of containers..01 ThinPrep Vial Result Comment: Sugg est follow up as clinically appropriate. Performed By: #### L 100.0100, L500.2500 #### [facility] [address] [place], [place], [address] SIGN Comment Normal . [facility] Comment on above: Order Comment: Speci men Comment: [id number] Comment: Source.............CervixSpecimen Comment: Other..............Post MenopausalSpecimen Comment: No. of containers..01 ThinPrep Vial Result Comment: Shama Matson MD, Pathologist Performed By: #### L 100.0100, L500.2500 #### [facility] [address] [place], [place], [address] Cervical or vaginal specimen microscopic examination by liquid based cytology (reportOrdered By: Pam Small on 05-25-2024 Cytology report Cyto stain.thin prep Doc (Cvx/Vag) Comment . [facility] Comment on above: Criteria not met, HP V Genotype not performed.Performed at: [address] [id number] Director: Palak Matson MD, Phone: [phone] at: [facility] Cyto [id number] [place], [place] [id number] Director: Romulo Levin MD, Phone: [phone] at: = - [facility] [id number] Director: Palak Matson MD, Phone: [phone] Cervical or vagninal specime n microscopic examination by cytology stain (reported asOrdered By: Pam Small on 05-25-2024 Cytology report Cyto stain Doc (Cvx/Vag) Comment . [facility] Comment on above: The Pap smear is a s creening test designed to aid in thedetection of premalignant and malignant conditions of theuterine cervix. It is not a diagnostic procedure andshould not be used as the sole means of detecting cervicalcancer. Both false-positive and false-negative reports dooccur. Loom Cleaner Cyto stain Nom (C vx/Vag) [ID]Ordered By: Pam Small on 05-25-2024 Pap Smear Performed By Comment . [facility] Comment on above: Verenice Saldana, Cyto logist (ASCP) Cytology report Cyto stain D oc (Cvx/Vag)Ordered By: Pam Small on 05-25-2024 Thin Prep Pap Smear Comment . [facility] Comment on above: The Pap smear is [...] 05-25-2024 HPV Genotype Special Info Comment . [facility] Comment on above: Criteria not met, HP V Genotype not performed.Performed at: - [facility] [address], [place] [id number] Director: Palak Matson MD, Phone: [phone] at: [facility] [id number] [place], [place] [id number] Director: Romulo Levin MD, Phone: [phone] at: = - [facility], [place] [id number] Director: Palak Matson MD, Phone: [phone] Detection in cervical specim en of any of human papilloma virus (HPV) 16, 18, 31, 33,Ordered By: Pam Small on 05-25-2024 HPV 16+18+31+33+35+39+45+51 +52+56+58+59+66+68 DNA Probe+sig amp Ql (Cvx) Negative Negative [facility] Comment on above: This nucleic acid am plification test detects fourteen high-risk HPV types (16,18,31,33,35,39,45,51,52,56,58,59,66,68)without differentiation. HPV 16+18+31+33+35+39+45+51+ 52+56+58+59+66+68 DNA Probe+sig amp Ql (Cvx)Ordered By: Pam Small on 05-25-2024 Human Papillomavirus High Risk Negative Negative [facility] Comment on above: This nucleic acid am plification test detects fourteen high-risk HPV types (16,18,31,33,35,39,45,51,52,56,58,59,66,68)without differentiation. Image-guided ThinPrep PapOrd ered By: Pam Small on 05-25-2024 Pap Smear Note Comment . [facility] Comment on above: This liquid based Th inPrep(R) pap test was screened withthe use of an image guided system. Image-guided liquid-based Pa pOrdered By: Pam Small on 05-25-2024 Pap Smear Diagnosis Comment High . [facility] Comment on above: EPITHELIAL CELL ABNO RMALITY.ATYPICAL SQUAMOUS CELLS OF UNDETERMINED SIGNIFICANCE (ASC-US). Laboratory - CytologyOrdered By: Pam Small on 05-25-2024 Loom Cleaner Cyto stain Nom (Cvx/Vag) [ID] Comment . [facility] Comment on above: Verenice Saldana, Cyto logist (ASCP) Pathologist Cyto stain Nom (Cvx/Vag) [ID] Comment . [facility] Comment on above: Palak Matson MD, Pathologist Recommended follow-up Cyto stain Nom (Cvx/Vag) Comment High . [facility] Comment on above: Suggest follow up as clinically appropriate. Laboratory - Miscellaneous t estsOrdered By: Pam Small on 05-25-2024 Service comment (Unsp spec) [Interp] . . [facility] No Panel InformationOrdered By: Pam Small on 05-25-2024 Pap Smear Specimen Adequacy Comment . [facility] Comment on above: Satisfactory for latrice luation. Endocervical and/or squamous metaplasticcells (endocervical component) are present. Pathology report final diagnosis Narrative Comment . [facility] Comment on above: R87.610 Pathologist Cyto stain Nom ( Cvx/Vag) [ID]Ordered By: Pam Small on 05-25-2024 Pap Smear Signed Out By Comment . [facility] Comment on above: Palak Matson MD, Pathologist Pathology report final diagn osis NarrativeOrdered By: Pam Small on 05-25-2024 Pap Smear Comment (2) Comment . [facility] Comment on above: R87.610 Recommended follow-up Cyto s tain Nom (Cvx/Vag)Ordered By: Pam Small on 05-25-2024 Pap Smear Recommendation Comment High . [facility] Comment on above: Suggest follow up as clinically appropriate. Service comment (Unsp spec) [Interp]Ordered By: Pam Small on 05-25-2024 Pap Smear Comment (3) . . 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) Allergies No Known Allergies Allergy (Verified 05/24/24 [...] unit/mL (3 14 unit subcut DAILY 04/20/24 04/04/18 History mL) subcutaneous pen (Lantus Solostar U-100 Insulin) Post menopausal: Yes Patient : No : No PFSH Medical History (Updated 04/20/24 @ 16:01 by [...] 3 current occupational status: employed current occupation: [employer] living pets and animals: Yes pets and [...] physical activity do you participate in: none jered/yarsanism: Cheondoism seatbelt use: sometimes do you feel safe at home: Yes additional social history: - Dionisio History 3 Elective abortions Hx Para 3 Spontaneous (more content not included)... [facility] EMERGENCY DEPARTMENTon 05-06 [place] [address] HEALTH INFORMATION MANAGEMENT EMERGENCY DEPARTMENT : 0905-0211 Signed Patient: LIGIA RIVAS Acct:[id number] MRUN: [id number] : 1960 Sex: F Loc: ED ADM [...] Feels Threatened In a Relationship: No - [place]/Gender ID What is your current Gender Identity? [...] for mahendra (more content not included)... Normal [facility] RIGHT HAND MIN 3Von 05-07-19 25 [...] the right wrist for further evaluation. Normal [facility] Absolute lymphocyte countOrd ered By: Pancho Tran on 04-20-2024 Lymphocytes Auto (Unsp spec) [#/Vol] 3.32 10*3/uL 0.83-4.51 [facility] Absolute neutrophil countOrd ered By: Pancho Tran on 04-20-2024 Neutrophils (Bld) [#/Vol] 5.9 10*3/uL 2.0-7.7 [facility] Automated lymphocyte count a s percentage of total leukocytesOrdered By: Pancho Tran on 04-20-2024 Lymphocytes/100 WBC Auto (Unsp spec) 32.1 % 19- [facility] BUN/creatinine ratioOrdered By: Pancho Tran on 04-20-2024 Urea nitrogen/Creatinine [Mass ratio] 23.5 mg/mg High 10- [facility] Basophil percentageOrdered B y: Pancho Tran on 04-20-2024 Basophils/100 WBC (Bld) 0.8 % 0-[address] [facility] Bilirubin, totalOrdered By: Pancho Tran on 04-20-2024 Bilirubin [Mass/Vol] 0.38 mg/dL 0.00-1.30 [facility] CBC W/Diff, Automatedon 03-26 Absolute Lymph 3.32 X10 3/uL Normal 0.83-4.51 [facility] Comment on above: Performed By: #### L 501.080 #### [facility] [address] [place], [address] Absolute Neut 5.9 X10 3/uL Normal 2.0-7.7 [facility] Comment on above: Performed By: #### L 501.080 #### [facility] [address] [place], [address] Basophils/100 WBC (Bld) 0.8 % Normal 0-[address] [facility] Comment on above: Performed By: #### L 501.080 #### [facility] [address] [place], [address] Eosinophils/100 WBC (Bld) 2.7 % Normal 0-5 [facility] Comment on above: Performed By: #### L 501.080 #### [facility] [address] [place], [address] Erythrocyte distribution width (RBC) [Ratio] 14.4 % Normal 11.6-14.6 [facility] Comment on above: Performed By: #### L 501.080 #### [facility] [address] [place], [address] Hematocrit (Bld) [Volume fraction] 42.9 % Normal 37-47 [facility] Comment on above: Performed By: #### L 501.080 #### [facility] [address] [place], [address] Hemoglobin (Bld) [Mass/Vol] 14.1 g/dL Normal 12.0-15.0 [facility] Comment on above: Performed By: #### L 501.080 #### [facility] [address] [place], [address] IG% 0.400 Normal 0.0-0.9 [facility] Comment on above: Result Comment: IG% - Immature Granulocytes (promyelocytes, myelocytes and metamyelocytes) > 1% indicates that a LEFT SHIFT is Present. Performed By: #### L 501.080 #### [facility] [address] [place], [address] Lymphocytes/100 WBC (Bld) 32.1 % Normal 19-41 [facility] Comment on above: Performed By: #### L 501.080 #### [facility] [address] [place], [address] MCH (RBC) [Entitic mass] 28.3 pg Normal 27.0-32.0 [facility] Comment on above: Performed By: #### L 501.080 #### [facility] [address] [place], [address] MCHC (RBC) [Mass/Vol] 32.9 g/dL Normal 32-36 [facility] Comment on above: Performed By: #### L 501.080 #### [facility] [address] [place], [address] MCV (RBC) [Entitic vol] 86.1 fL Normal 81-[address] [facility] Comment on above: Performed By: #### L 501.080 #### [facility] [address] [place], [address] Monocytes/100 WBC (Bld) 7.4 % Normal 0-[address] [facility] Comment on above: Performed By: #### L 501.080 #### [facility] [address] [place], [address] Neutrophils/100 WBC (Bld) 56.6 % Normal 47-70 [facility] Comment on above: Performed By: #### L 501.080 #### [facility] [address] [place], [address] Nucleated RBC (Bld) [#/Vol] 0 10*3/uL Normal 0-5 [facility] Comment on above: Performed By: #### L 501.080 #### [facility] [address] [place], [address] Platelet mean volume (Bld) [Entitic vol] 10.9 fL Normal 6.2-12.0 [facility] Comment on above: Performed By: #### L 501.080 #### [facility] [address] [place], [address] Platelets (Bld) [#/Vol] 303 10*3/uL Normal 150-450 [facility] Comment on above: Performed By: #### L 501.080 #### [facility] [address] [place], [address] RBC (Bld) [#/Vol] 4.98 10*6/uL Normal 4.2-5.4 [facility] Comment on above: Performed By: #### L 501.080 #### [facility] [address] [place], [address] RDW SD 44.9 fl High 35.1-43.9 [facility] Comment on above: Performed By: #### L 501.080 #### [facility] [address] [place], [address] WBC (Bld) [#/Vol] 10.3 10*3/uL Normal 4.4-11.0 [facility] Comment on above: Performed By: #### L 501.080 #### [facility] [address] [place], [address] Carbon dioxide measurementOr dered By: Pancho Tran on 04-20-2024 CO2 [Moles/Vol] 24.7 mmol/L 22.0-29.0 [facility] Chloride measurementOrdered By: Ronaldomansoorru Tran on 04-20-2024 Chloride [Moles/Vol] 102 mmol/L 96-108 [facility] Comprehensive Metabolic Prof ilon 04-20-2024 Albumin [Mass/Vol] 4.1 g/dL Normal 3.4-4.8 [facility] Comment on above: Performed By: #### L 100.0100 #### [facility] [address] [place], [place], [address] ([phone] Albumin/Globulin [Mass ratio] 1.2 {ratio} Normal 0.9-2.4 [facility] Comment on above: Performed By: #### L 100.0100 #### [facility] [address] [place], [place], [address] (208) ALK PHOS 103 U/L Normal 35-104 [facility] Comment on above: Performed By: #### L 100.0100 #### [facility] [address] [place], [address] (876) ALT [Catalytic activity/Vol] 23 U/L Normal <=34 [facility] Comment on above: Performed By: #### L 100.0100 #### [facility] [address] [place], [place], [address] (052) Anion gap [Moles/Vol] 12 mmol/L Normal 5-15 [facility] Comment on above: Performed By: #### L 100.0100 #### [facility] [address] [place], [place], [address] ([phone] AST [Catalytic activity/Vol] 24 U/L Normal <=31 [facility] Comment on above: Performed By: #### L 100.0100 #### [facility] [address] [place], [place], [address] (417) Bilirubin [Mass/Vol] 0.38 mg/dL Normal 0.00-1.30 [facility] Comment on above: Performed By: #### L 100.0100 #### [facility] [address] [place], [address] BUN/CRE 23.5 RATIO High 10-20 [facility] Comment on above: Performed By: #### L 100.0100 #### [facility] [address] [place], [address] Calcium [Mass/Vol] 9.4 mg/dL Normal 7.6-11.0 [facility] Comment on above: Performed By: #### L 100.0100 #### [facility] [address] [place], [address] Chloride [Moles/Vol] 102 mmol/L Normal 96-108 [facility] Comment on above: Performed By: #### L 100.0100 #### [facility] [address] [place], [address] CO2 [Moles/Vol] 24.7 mmol/L Normal 22.0-29.0 [facility] Comment on above: Performed By: #### L 100.0100 #### [facility] [address] [place], [address] Creatinine [Mass/Vol] 0.8 mg/dL Normal 0.6-1.0 [facility] Comment on above: Performed By: #### L 100.0100 #### [facility] [address] [place], [address] GFR/1.73 sq M.predicted among non-blacks MDRD (S/P/Bld) [Vol rate/Area] 79 mL/min/{1.73_m2} Normal >60 [facility] Comment on above: Result Comment: mL/m in/1.73m2 CKD-EPI Creatinine Equation (2020) Performed By: #### L 100.0100 #### [facility] [address] [place], [address] Globulin (S) [Mass/Vol] 3.4 g/dL Normal 2.2-4.[address] [facility] Comment on above: Performed By: #### L 100.0100 #### [facility] [address] [place], [address] Glucose [Mass/Vol] 92 mg/dL Normal 70-99 [facility] Comment on above: Performed By: #### L 100.0100 #### [facility] [address] [place], [address] Potassium [Moles/Vol] 3.7 mmol/L Normal 3.3-5.1 [facility] Comment on above: Performed By: #### L 100.0100 #### [facility] [address] [place], [address] Sodium [Moles/Vol] 138 mmol/L Normal 133-145 [facility] Comment on above: Performed By: #### L 100.0100 #### [facility] [address] [place], [address] T PROT 7.6 g/dL Normal 5.9-8.4 [facility] Comment on above: Performed By: #### L 100.0100 #### [facility] [address] [place], [address] Urea nitrogen [Mass/Vol] 20 mg/dL High 4-19 [facility] Comment on above: Performed By: #### L 100.0100 #### [facility] [address] [place], [address] Creatinine [Moles/Vol]Ordere d By: Pancho Tran on 04-20-2024 Creatinine [Mass/Vol] 0.8 mg/dL 0.6-1.0 [facility] Eosinophil percentageOrdered By: Pancho Tran on 04-20-2024 Eosinophils/100 WBC (Bld) 2.7 % 0-5 [facility] Erythrocyte distribution wid th ratioOrdered By: Pancho Tran on 04-20-2024 Erythrocyte distribution width (RBC) [Ratio] 14.4 % 11.6-14.6 [facility] Erythrocyte distribution wid th standard deviationOrdered By: Pancho Tran on 04-20-2024 Erythrocyte distribution width (RBC) [Entitic vol] 44.9 fL High 35.1-43.9 [facility] Erythrocyte distribution width (RBC) [Ratio] 44.9 fl High 35.1-43.9 [facility] GFR/1.73 sq M.predicted dee g non-blacks MDRD (S/P/Bld) [Vol rate/Area]Ordered By: Pancho Tran on 04-20-2024 Estimated GFR (MDRD) Non-Af Amer 79 >60 [facility] Comment on above: mL/min/1.73m2 CKD-EP I Creatinine Equation (2020) Glomerular filtration rate ( GFR) estimation/1.73 sq m using serum, plasma, or whole bOrdered By: Pancho Tran on 04-20-2024 GFR/1.73 sq M.predicted among non-blacks MDRD (S/P/Bld) [Vol rate/Area] 79 mL/min/{1.73_m2} >60 [facility] Comment on above: mL/min/1.73m2 CKD-EP I Creatinine Equation (2020) Hematocrit Auto (Bld) [Volum e fraction]Ordered By: Pancho Tran on 04-20-2024 Hematocrit (Bld) [Volume fraction] 42.9 % 37-47 [facility] Hemoglobin measurementOrdere d By: Pancho Tran on 04-20-2024 Hemoglobin (Bld) [Mass/Vol] 14.1 g/dL 12.0-15.0 [facility] Immature granulocytes/100 WB C Auto (Bld)Ordered By: Pancho Tran on 04-20-2024 Immature granulocytes/100 WBC (Bld) 0.400 % 0.0-0.9 [facility] Comment on above: IG% - Immature Granu locytes (promyelocytes, myelocytes and metamyelocytes) > 1% indicates that a LEFT SHIFT is Present. Internal Medicine Office Vis itojanelle 04-20-2024 Internal Medicine Office Visit [facility] [address] [place], [place] [address] OFFICE VISIT Date of Service: 04/20/24 MR#: [id number] Acct: [id number] Name: LIGIA RIVAS Rep #: [id number] : 1960 Provider: Dr. 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 Normal [facility] - Chemistry and C hemistry - challengeOrdered By: Pancho Tran on 04-20-2024 AST [Catalytic activity/Vol] 24 U/L <32 [facility] Lymphocytes Auto (Unsp spec) [#/Vol]Ordered By: Pancho Tran on 04-20-2024 Lymphocytes (Bld) [#/Vol] 3.32 10*3/uL 0.83-4.51 [facility] Lymphocytes/100 WBC Auto (Un sp spec)Ordered By: Pancho Tran on 04-20-2024 Lymphocytes/100 WBC (Bld) 32.1 % 19-41 [facility] MCV (mean corpuscular volume ) determinationOrdered By: Pancho Tran on 04-20-2024 MCV (RBC) [Entitic vol] 86.1 fL 81-[address] [facility] Mean corpuscular hemoglobin (MCH) determinationOrdered By: Pancho Tran on 04-20-2024 MCH (RBC) [Entitic mass] 28.3 pg 27.0-32.0 [facility] Mean corpuscular hemoglobin concentration (MCHC) determinationOrdered By: Pancho Tran on 04-20-2024 MCHC (RBC) [Mass/Vol] 32.9 g/dL 32-36 [facility] Mean platelet volume determi nationOrdered By: Pancho Tran on 04-20-2024 Platelet mean volume (Bld) [Entitic vol] 10.9 fL 6.2-12.0 [facility] Monocyte percentageOrdered B y: Pancho Tran on 04-20-2024 Monocytes/100 WBC (Bld) 7.4 % 0-[address] [facility] Neutrophil percentageOrdered By: Pancho Tran on 04-20-2024 Neutrophils/100 WBC (Bld) 56.6 % 47-70 [facility] Nucleated red blood cell per centageOrdered By: Pancho Tran on 04-20-2024 Nucleated RBC/100 WBC (Bld) [Ratio] 0 % 0-5 [facility] Platelet countOrdered By: Ronaldo Tran on 04-20-2024 Platelets (Bld) [#/Vol] 303 10*3/uL 150-450 [facility] RBC Auto (Bld) [#/Vol]Ordere d By: Pancho Tran on 04-20-2024 RBC (Bld) [#/Vol] 4.98 10*6/uL 4.2-5.4 [facility] Serum globulin measurementOr dered By: Pancho Tran on 04-20-2024 Globulin (S) [Mass/Vol] 3.4 g/dL 2.2-4.[address] [facility] Serum glucose measurement (m ass/volume)Ordered By: Pancho Tran on 04-20-2024 Glucose [Mass/Vol] 92 mg/dL 70-99 [facility] Serum or plasma alanine webber otransferase (ALT) measurementOrdered By: Pancho Tran on 04-20-2024 ALT [Catalytic activity/Vol] 23 U/L <35 [facility] Serum or plasma albumin ricky urement (mass/volume)Ordered By: Pancho Tran on 04-20-2024 Albumin [Mass/Vol] 4.1 g/dL 3.4-4.8 [facility] Serum or plasma albumin/glob ulin mass ratioOrdered By: Pancho Tran on 04-20-2024 Albumin/Globulin [Mass ratio] 1.2 {ratio} 0.9-2.4 [facility] Serum or plasma alkaline usman sphatase measurementOrdered By: Pancho Tran on 04-20-2024 ALP [Catalytic activity/Vol] 103 U/L 35-104 [facility] Serum or plasma anion gap de termination (moles/volume)Ordered By: Pancho Tran on 04-20-2024 Anion gap [Moles/Vol] 12 mmol/L 5-15 [facility] Serum or plasma calcium ricky urement (mass/volume)Ordered By: Pancho Tran on 04-20-2024 Calcium [Mass/Vol] 9.4 mg/dL 7.6-11.0 [facility] Serum or plasma creatinine m easurement (moles/volume)Ordered By: Pancho Tran on 04-20-2024 Creatinine [Moles/Vol] 0.8 mg/dL 0.6-1.0 [facility] Serum or plasma potassium me asurementOrdered By: Pancho Tran on 04-20-2024 Potassium [Moles/Vol] 3.7 mmol/L 3.3-5.1 [facility] Serum or plasma sodium measu rement (moles/volume)Ordered By: Pancho Tran on 04-20-2024 Sodium [Moles/Vol] 138 mmol/L 133-145 [facility] Serum or plasma urea nitroge n measurement (mass/volume)Ordered By: Pancho Tran on 04-20-2024 Urea nitrogen [Mass/Vol] 20 mg/dL High 4-19 [place] Total proteinOrdered By: Jonas Tran on 04-20-2024 Protein [Mass/Vol] 7.6 g/dL 5.9-8.4 [facility] White blood cell (WBC) count Ordered By: Pancho Tran on 04-20-2024 WBC (Bld) [#/Vol] 10.3 10*3/uL 4.4-11.0 [facility] Endocrinology Visit Reporton 04-13-2024 Endocrinology Visit Report [facility] [address] [place] [address] OFFICE VISIT Date of Service: 04/13/24 MR#: [id number] Acct: [id number] Name: LIGIA RIVAS Rep #: [id number] : 1960 Provider: ARCADIO dodd Age/Sex: 63/F Location: [facility] Status: Signed Intake Vital Signs 01/10/24 10:09 [...] tabs 04/13/24 0 04/13/24 Rx tablet,extended release(part/cryst) [facility] Medical History Wears contact lenses Depression Thyroid [...] others. Unf (more content not included)... Normal [facility] - Hematology and Cell countsOrdered By: Caitlin Tilley on 04-13-2024 HbA1c (Bld) [Mass fraction] 7.0 % High 4.2-6.3 [facility] Direct serum free thyroxine (FT4) measurementOrdered By: Caitlin Tilley on 01-10-2024 Free T4 [Mass/Vol] 0.95 ng/dL 0.76-1.46 [facility] Endocrinology Visit Reporton 01-10-2024 Endocrinology Visit Report [facility] [address] [place] [address] OFFICE VISIT Date of Service: 01/10/24 MR#: [id number] Acct: [id number] Name: LIGIA RIVAS Rep #: [id number] : 1960 Provider: ARCADIO dodd Age/Sex: 63/F Location: [facility] Status: Signed Intake Vital Signs 10/07/23 09:50 10/19/23 18:01/10/24 10:09 Height 5 ft 7 in 5 [...] significant ep (more content not included)... Normal [place] Free T3on 01-10-2024 Free T3 [Mass/Vol] 2.9 pg/mL Normal 2.18-3.98 [facility] Comment on above: Performed By: #### L 506.0400, L501.66366, L501.9520 ####[facility] [id number] [place], [place], [id number] Free [id number] By: Sury on 01-10-2024 Free Triiodothyronine (T3) pg/dL 2.9 pg/mL 2.18-3.98 [facility] - Hematology and Cell countson 01-10-2024 HbA1c (Bld) [Mass fraction] 6.2 % 4.2-6.3 [facility] T4 Free Directon 01-10-2024 T4 FREE DIRECT 0.95 ng/dL Normal 0.76-1.46 [facility] Comment on above: Performed By: #### L 506.0400, L501.50208, L501.9520 ####[facility] [address] [place], [place], [address] TSH QnOrdered By: Caitlin dodd on 01-10-2024 Thyroid Stimulating Hormone (TSH) 0.051 uIU/mL Low 0.358-3.740 [facility] Thyroid Stim Hormone (TSH)on 01-10-2024 TSH 0.051 uIU/mL Low 0.358-3.740 [facility] Comment on above: Performed By: #### L 506.0400, L501.74709, L501.9520 ####[facility] [address] [place], [address] XR HIP LEFT 2-3 VIEWSon 05-24 XR [...] hip osteoarthritis. No acute osseous abnormality. Normal [facility] XR Hip - left 2 [...] left hip osteoarthritis. No acute osseous abnormality. [facility] - left 2 ViewsOrdered By: Juno Kirk on 06-16-2023 [facility] Work Phone: Bacteria Ur Culton 3 Bacteria [...] technique or straight catheterization for???urine???collecti on. Normal [facility] Comment on above: Performed By: #### 6 30-4 #### [facility] CLIA [id number] [address] [place] [address] [place] HbA1c (Bld)on 05-18-2022 Average glucose Estimated from glycated hemoglobin (Bld) [Mass/Vol] 243 mg/dL Normal [facility] Comment on above: Order Comment: Speci men Type: BLOOD SPECIMEN Ordering Facility: [facility] Address: [address] [place] [address] Result Comment: eAG: (Estimated average glucose) is a calculated value from HgbA1c and is renewals representative of the average blood glucose level in the last 2-3 month period. Performed By: #### 5 5454-3 #### [facility] CLIA [id number] [address] [place] [id number] [place] HbA1c (Bld) [Mass fraction] 10.1 % High 4.3-5.[address] [facility] Comment on above: Order Comment: Harry cummings Type: BLOOD SPECIMEN Ordering Facility: [facility] Address: [address] [place] [address] Result Comment: Amer [place] Diabetes Association guidelines indicate that patients with HgbA1c in the range 5.7-6.4% are at increased risk for development of diabetes, and intervention by lifestyle modification may be beneficial. HgbA1c greater or equal to 6.5% is considered diagnostic of diabetes. Performed By: #### 5 5454-3 #### [facility] CLIA [id number] [address] [place] [address] [place] HbA1c (Bld)on 03-20-2022 Average glucose Estimated from glycated hemoglobin (Bld) [Mass/Vol] 209 mg/dL Normal [facility] Comment on above: Order Comment: Harry cummings Type: BLOOD SPECIMEN Ordering Facility: [facility] Address: [address] [place] [address] Result Comment: eAG: (Estimated average glucose) is a calculated value from HgbA1c and is renewals representative of the average blood glucose level in the last 2-3 month period. Performed By: #### 5 5454-3 #### [facility] CLIA [id number] [address] [place] [address] [place] HbA1c (Bld) [Mass fraction] 8.9 % High 4.3-5.[address] [facility] Comment on above: Order Comment: Harry cummings Type: BLOOD SPECIMEN Ordering Facility: [facility] Address: [address] [place] [address] Result Comment: Amer ican Diabetes Association guidelines indicate that patients with HgbA1c in the range 5.7-6.4% are at increased risk for development of diabetes, and intervention by lifestyle modification may be beneficial. HgbA1c greater or equal to 6.5% is considered diagnostic of diabetes. Performed By: #### 5 5454-3 #### [facility] CLIA [id number] [address] [place], [place] [id number] [place] HbA1c (Bld)on 11-17-2021 Average glucose Estimated from glycated hemoglobin (Bld) [Mass/Vol] 249 mg/dL Normal [facility] Comment on above: Order Comment: Harry cummings Type: BLOOD SPECIMEN Ordering Facility: [facility] Address: [address] [place] [address] Result Comment: eAG: (Estimated average glucose) is a calculated value from HgbA1c and is renewals representative of the average blood glucose level in the last 2-3 month period. Performed By: #### 5 5454-3 #### [facility] CLIA [id number] [address] [place] [address] [place] HbA1c (Bld) [Mass fraction] 10.3 % High 4.3-5.[address] [facility] Comment on above: Order Comment: Harry cummings Type: BLOOD SPECIMEN Ordering Facility: [facility] Address: [address] [place] [address] Result Comment: Amer ican Diabetes Association guidelines indicate that patients with HgbA1c in the range 5.7-6.4% are at increased risk for development of diabetes, and intervention by lifestyle modification may be beneficial. HgbA1c greater or equal to 6.5% is considered diagnostic of diabetes. Performed By: #### 5 5454-3 #### [facility] CLIA [id number] [address] [place], [place] [address] [place] Hemoglobin A1con 03-07-2020 HbA1c (Bld) [Mass fraction] 9.5 % High 4.3-5.6 [facility] Comment on above: Performed By: #### H BA1C #### [facility] Routine Lab [address] [place] [id number] HbA1c (Bld) [Mass fraction] 226 mg/dL Normal [facility] Comment on above: Performed By: #### H BA1C #### [facility] Lab [address] [place] [address] Hemoglobin A1con 09-04-2019 HbA1c (Bld) [Mass fraction] 8.1 % High 4.3-5.6 [facility] Comment on above: Performed By: #### H BA1C #### [facility] [address] [place], [place] [address] HbA1c (Bld) [Mass fraction] 186 mg/dL Normal [facility] Comment on above: Performed By: #### H BA1C #### [facility] [address] [place], [place] [address] ANAEROBEon 02-09-2018 ANAEROBE NO ANAEROBES ISOLATE D. NO ORGANISMS SEEN ORGANISM 1: NO GROWTH Normal [facility] Comment on above: Performed By: #### M 160.2000 #### [facility] [address] [place] [address] CHEST-ONE VIEW ONLY - CXR1on 01-28-2018 CHEST-ONE VIEW ONLY - CXR1 [place] [address] Name: LIGIA RIVAS Phys: MILA HOROWITZ D.O. : [birth year] Age: 57 Sex: F Acct: [id number] Loc: [facility] Exam Date: 01/28/18 Status: [facility] Radiology No.: [id number] Unit Number: [id number] Exam # Type/Exam [id number] RAD / CHEST-ONE VIEW ONLY - CXR1 [...] Professional interpretation provided by [facility], [place] on RAC-PC-60. Thank you for this referral. < > Reported By: CATHY MAN M.D. Signed In NovaPro By: CATHY MAN M.D. << Signature on File>> Reported By: CATHY MAN M.D. Signed By: CATHY MAN M.D. Tests performed at: [place] [address] Normal [facility] FOOT 3 VIEWSon 01-28-2018 FOOT 3 VIEWS [place] [address] Name: LIGIA RIVAS Osmin Phys: MANE SMITH D.P.M. : [birth year] Age: 57 Sex: F Acct: [id number] Loc: AMB Exam Date: 01/28/18 Status: [facility] Radiology No.: [id number] Unit Number: [id number] Exam # Type/Exam [id number] RAD / FOOT 3 VIEWS RT EXAMINATION: [...] Professional interpretation provided by [facility], [place] on RAC-PC-66. Thank you for this referral. < > Reported By: STERLING ROSA D.O. Signed In NovaPro By: STERLING ROSA D.O. << Signature on File>> Reported By: STERLING ROSA D.O. Signed By: STERLING ROSA D.O. Tests performed at: [place] [address] [facility] FOOT 3 VIEWS [place] [address] Name: LIGIA RIVAS Phys: MANE SMITH D.P.M. : [birth year] Age: 57 Sex: F Acct: [id number] Loc: AMB Exam Date: 01/28/18 Status: [facility] Radiology No.: [id number] Unit Number: [id number] Exam # Type/Exam [id number] RAD / FOOT 3 VIEWS RT EXAMINATION: [...] Professional interpretation provided by [facility], [place] on [facility]-PC-66. Thank you for this referral. < > Reported By: STERLING ROSA D.O. Signed In NovaPro By: STERLING ROSA D.O. << Signature on File>> Reported By: STERLING ROSA D.O. Signed By: STERLING ROSA D.O. Tests performed at: [address] [address] Normal [facility] GLUCOSE FSon 01-28-2018 Glucose mass conc 237 mg/dL High 70-110 [facility] Comment on above: Performed By: #### L 100.0070 #### [facility] [address] [place] [address] OPERATIVE REPORTon 8 [place] [address] HEALTH INFORMATION MANAGEMENT OPERATIVE REPORT Patient: ILGIA RIVAS MANE SMITH D.P.M. [id number] [age] F Status: [facility] DATE OF SERVICE 01/28/2018. HISTORY OF [...] arthrodesis right foot. SURGEON Dr. Mane Smith. OPERATIONAL TEST MECHANIC Elinor Hidalgo D.P.M., postgraduate year 3. ANESTHESIA [...] By: MANE SMITH D.P.M. Tests performed at: [address] [address] Normal [facility] SURGICALon 01-28-2018 SURGICAL Bone of foot - BONE ARTHRITIS RT FOOT GROSS DESCRIPTION: Labeled bone right foot. Received in formalin are multiple fragments of white to pink solis soft tissue measuring 5.0 x 5.0 x 1.5 cm in aggregate. These are fragments of bone and cartilage. Generator Switchboard Operator fragments are submitted in one cassette after decalcification. SHABNAM/nevaeh ---- MICROSCOPIC DESCRIPTION: Slides reviewed. SHABNAM/nevaeh ---- FINAL DIAGNOSIS: BONE, RIGHT FOOT, FRAGMENTS: BENIGN FRAGMENTS OF BONE, CARTILAGE, AND FIBROADIPOSE TISSUE WITH CHANGES OF OSTEOARTHRITIS. Dictated by: SEA MAE M.D. CLINICAL DATA: PROCEDURE: Triple arthrodesis foot PRE-OP: Arthritis of right foot POST-OP: Arthritis of right foot HISTORY: N/A SPECIAL STAINS A DECAL Signed *Electronically Signed* SEA MAE M.D. 02/02/18 1527 ---- Normal [facility] Comment on above: Performed By: #### P -S #### [facility] [address] [address] SURGICAL HISTORY AND PHYSICA [facility] 01-25-2018 SURGICAL HISTORY [place] [address] HEALTH INFORMATION MANAGEMENT SURGICAL HISTORY AND PHYSICAL Patient: LIGIA RIVAS ANDREW W Darion [id number] [age] F Status: [facility] AMB DATE OF ADMISSION 01/28/2018 HISTORY OF PRESENT ILLNESS This 57-year-old female has been seen in my [place] office with continued pain in the right [...] The patient had x-rays previously performed at [facility] showing significant arthritis of the subtalar [...] of motion. Weightbearing x-rays were obtained at [facility], three views of the right foot. [...] for preoperative testing. These were performed at [facility]. The EKG showed a normal sinus [...] triple arthrodesis of the right foot at [facility] on 01/28/2018. MANE SMITH D.P.M. cc: MONCHO LINN D.O.; MANE SMITH D.P.M. << Signature on File>> Reported By: MANE SMITH D.P.M. Signed By: MANE SMITH D.P.M. Tests performed at: [address] [id number] Normal [facility] Vital Signs Date Time Vital Sign Value Performing Clinician Faci abdirahman 11-16-2024 09:59-0400 Body height 170.[address] Pancho Tran MD Work Phone: [facility] 11-16-2024 09:59-0400 Body mass index (BMI) [Ratio] 40.7 kg/m2 Dr. Pancho Tran MD Work Phone: [facility] 11-16-2024 09:59-0400 Body temperature 97.3 [degF] Dr. Pancho Tran MD Work Phone: [facility] 11-16-2024 09:59-0400 Body weight 117.[address] Pancho Tran MD Work Phone: [facility] 11-16-2024 09:59-0400 Diastolic blood pressure 82 mm[Hg] Dr. Pancho Tran MD Work Phone: [facility] 11-16-2024 09:59-0400 Heart rate 94 /min Dr. Pancho Tran MD Work Phone: [facility] 11-16-2024 09:59-0400 Respiratory rate 16 /min Dr. Pancho Tran MD Work Phone: [facility] 11-16-2024 09:59-0400 SaO2% (BldA) [Mass fraction] 96 % Dr. Pancho Tran MD Work Phone: [facility] 11-16-2024 09:59-0400 Systolic blood pressure 138 mm[Hg] Dr. Pancho Tran MD Work Phone: [facility] 07-08-2024 10:35-0400 Body temperature 98 [degF] Sandra Ungerer INSTRUMENTATION ENGINEER-C Work Phone: [facility] 07-08-2024 10:35-0400 Diastolic blood pressure 83 mm[Hg] Sandra Ungerer INSTRUMENTATION ENGINEER-C Work Phone: [facility] 07-08-2024 10:35-0400 Heart rate 82 /min Sandra Ungerer INSTRUMENTATION ENGINEER-C Work Phone: [facility] 07-08-2024 10:35-0400 Respiratory rate 18 /min Sandra Ungerer INSTRUMENTATION ENGINEER-C Work Phone: [facility] 07-08-2024 10:35-0400 SaO2% (BldA) [Mass fraction] 97 % Sandra Ungerer INSTRUMENTATION ENGINEER-C Work Phone: [facility] 07-08-2024 10:35-0400 Systolic blood pressure 125 mm[Hg] Sandra Ungerer INSTRUMENTATION ENGINEER-C Work Phone: [facility] 07-07-2024 14:19-0400 Body height 170.18 cm Sandra Ungerer INSTRUMENTATION ENGINEER-C Work Phone: [facility] 07-07-2024 14:19-0400 Body weight 109.9 kg Sandra Ungerer INSTRUMENTATION ENGINEER-C Work Phone: [facility] 07-07-2024 00:40-0400 Body mass index (BMI) [Ratio] 37.9 kg/m2 Sandra Ungerer INSTRUMENTATION ENGINEER-C Work Phone: [facility] 07-06-2024 23:01-0400 Body temperature 97.9 [degF] Sandra Ungerer INSTRUMENTATION ENGINEER-C Work Phone: [facility] 07-06-2024 23:01-0400 Diastolic blood pressure 95 mm[Hg] Sandra Ungerer INSTRUMENTATION ENGINEER-C Work Phone: [facility] 07-06-2024 23:01-0400 Heart rate 87 /min Sandra Ungerer INSTRUMENTATION ENGINEER-C Work Phone: [facility] 07-06-2024 23:01-0400 Respiratory rate 24 /min Sandra Ungerer INSTRUMENTATION ENGINEER-C Work Phone: [facility] 07-06-2024 23:01-0400 SaO2% (BldA) [Mass fraction] 100 % Sandra Ungerer INSTRUMENTATION ENGINEER-C Work Phone: [facility] 07-06-2024 23:01-0400 Systolic blood pressure 125 mm[Hg] Sandra Ungerer INSTRUMENTATION ENGINEER-C Work Phone: [facility] 07-06-2024 17:46-0400 Body height 170.18 cm Sandra Ungerer INSTRUMENTATION ENGINEER-C Work Phone: [facility] 07-06-2024 17:46-0400 Body mass index (BMI) [Ratio] 37.8 kg/m2 Sandra Ungerer INSTRUMENTATION ENGINEER-C Work Phone: [facility] 07-06-2024 17:46-0400 Body weight 109.5 kg Sandra Ungerer INSTRUMENTATION ENGINEER-C Work Phone: [facility] 07-06-2024 10:55-0400 Body height 170.18 cm Sandra Ungerer INSTRUMENTATION ENGINEER-C Work Phone: [facility] 07-06-2024 10:55-0400 Body mass index (BMI) [Ratio] 37.4 kg/m2 Sandra Ungerer INSTRUMENTATION ENGINEER-C Work Phone: [facility] 07-06-2024 10:55-0400 Body temperature 96.9 [degF] Sandra Ungerer INSTRUMENTATION ENGINEER-C Work Phone: [facility] 07-06-2024 10:55-0400 Body weight 108.4 kg Sandra Ungerer INSTRUMENTATION ENGINEER-C Work Phone: [facility] 07-06-2024 10:55-0400 Diastolic blood pressure 78 mm[Hg] Sandra Ungerer INSTRUMENTATION ENGINEER-C Work Phone: [facility] 07-06-2024 10:55-0400 Heart rate 101 /min Sandra Ungerer INSTRUMENTATION ENGINEER-C Work Phone: [facility] 07-06-2024 10:55-0400 Respiratory rate 16 /min Sandra Ungerer INSTRUMENTATION ENGINEER-C Work Phone: [facility] 07-06-2024 10:55-0400 SaO2% (BldA) [Mass fraction] 98 % Sandra Ungerer INSTRUMENTATION ENGINEER-C Work Phone: [facility] 07-06-2024 10:55-0400 Systolic blood pressure 118 mm[Hg] Sandra Ungerer INSTRUMENTATION ENGINEER-C Work Phone: [facility] 07-06-2024 09:45-0400 Body height 170.18 cm Sandra Ungerer INSTRUMENTATION ENGINEER-C Work Phone: [facility] 07-06-2024 09:45-0400 Body mass index (BMI) [Ratio] 37.5 kg/m2 Sandra Ungerer INSTRUMENTATION ENGINEER-C Work Phone: [facility] 07-06-2024 09:45-0400 Body weight 108.57 kg Sandra Ungerer INSTRUMENTATION ENGINEER-C Work Phone: [facility] 07-06-2024 09:45-0400 Diastolic blood pressure 85 mm[Hg] Sandra Ungerer INSTRUMENTATION ENGINEER-C Work Phone: [facility] 07-06-2024 09:45-0400 Heart rate 102 /min Sandra Ungerer INSTRUMENTATION ENGINEER-C Work Phone: [facility] 07-06-2024 09:45-0400 SaO2% (BldA) [Mass fraction] 96 % Sandra Ungerer INSTRUMENTATION ENGINEER-C Work Phone: [facility] 07-06-2024 09:45-0400 Systolic blood pressure 130 mm[Hg] Sandra Ungerer INSTRUMENTATION ENGINEER-C Work Phone: [facility] 05-24-2024 12:15-0400 Body height 170.18 cm INSTRUMENTATION ENGINEER. Sandra Ungerer INSTRUMENTATION ENGINEER-C Work Phone: [facility] 05-24-2024 12:11-0400 Body mass index (BMI) [Ratio] 39.1 kg/m2 INSTRUMENTATION ENGINEER. Sandra Ungerer INSTRUMENTATION ENGINEER-C Work Phone: [facility] 05-24-2024 12:11-0400 Body weight 113.39 kg INSTRUMENTATION ENGINEER. Sandra Ungerer INSTRUMENTATION ENGINEER-C Work Phone: [facility] 05-24-2024 12:11-0400 Diastolic blood pressure 77 mm[Hg] INSTRUMENTATION ENGINEER. Sandra Ungerer INSTRUMENTATION ENGINEER-C Work Phone: [facility] 05-24-2024 12:11-0400 Systolic blood pressure 121 mm[Hg] DEZ. Sandra Meredith INSTRUMENTATION ENGINEER-C Work Phone: [facility] 05-06-2024 13:01-0400 Diastolic blood pressure 77 mm[Hg] DANNY NEVAREZ MD Work Phone: [facility] 05-06-2024 13:01-0400 Heart rate 78 /min DANNY NEVAREZ MD Work Phone: [facility] 05-06-2024 13:01-0400 Respiratory rate 16 /min DANNY NEVAREZ MD Work Phone: [facility] 05-06-2024 13:01-0400 SaO2% (BldA) [Mass fraction] 96 % DANNY NEVAREZ MD Work Phone: [facility] 05-06-2024 13:01-0400 Systolic blood pressure 132 mm[Hg] DANNY NEVAREZ MD Work Phone: [facility] 05-06-2024 11:52-0400 Body height 170.18 cm DANNY NEVAREZ MD Work Phone: [facility] 05-06-2024 11:52-0400 Body temperature 97.9 [degF] DANNY NEVAREZ MD Work Phone: [facility] 05-06-2024 11:52-0400 Body weight 112.95 kg DANNY NEVAREZ MD Work Phone: [facility] 04-20-2024 15:31-0500 Body height 170.18 cm DEZ. Sandra Meredith INSTRUMENTATION ENGINEER-C Work Phone: [facility] 04-20-2024 15:31-0500 Body mass index (BMI) [Ratio] 39.3 kg/m2 NP. Sandra Meredith INSTRUMENTATION ENGINEER-C Work Phone: [facility] 04-20-2024 15:31-0500 Body temperature 98.1 [degF] INSTRUMENTATION ENGINEER. Sandraestefania Beckerer INSTRUMENTATION ENGINEER-C Work Phone: [facility] 04-20-2024 15:31-0500 Body weight 113.85 kg INSTRUMENTATION ENGINEER. Sandra Ungerer INSTRUMENTATION ENGINEER-C Work Phone: [facility] 04-20-2024 15:31-0500 Diastolic blood pressure 94 mm[Hg] INSTRUMENTATION ENGINEER. Sandra Ungerer INSTRUMENTATION ENGINEER-C Work Phone: [facility] 04-20-2024 15:31-0500 Heart rate 87 /min INSTRUMENTATION ENGINEER. Sandra Ungerer INSTRUMENTATION ENGINEER-C Work Phone: [facility] 04-20-2024 15:31-0500 Respiratory rate 16 /min INSTRUMENTATION ENGINEER. Sandra Beckerer INSTRUMENTATION ENGINEER-C Work Phone: [facility] 04-20-2024 15:31-0500 SaO2% (BldA) [Mass fraction] 97 % INSTRUMENTATION ENGINEER. Sandra Ungerer INSTRUMENTATION ENGINEER-C Work Phone: [facility] 04-20-2024 15:31-0500 Systolic blood pressure 142 mm[Hg] INSTRUMENTATION ENGINEER. Sandra Ungerer INSTRUMENTATION ENGINEER-C Work Phone: [facility] 04-13-2024 09:43-0500 Body mass index (BMI) [Ratio] 38.9 kg/m2 INSTRUMENTATION ENGINEER. Sandra Ungerer INSTRUMENTATION ENGINEER-C Work Phone: [facility] 04-13-2024 09:43-0500 Body weight 112.94 kg INSTRUMENTATION ENGINEER. Sandra Ungerer INSTRUMENTATION ENGINEER-C Work Phone: [facility] 04-13-2024 09:43-0500 Diastolic blood pressure 85 mm[Hg] INSTRUMENTATION ENGINEER. Sandra Beckerer INSTRUMENTATION ENGINEER-C Work Phone: [facility] 04-13-2024 09:43-0500 Heart rate 81 /min INSTRUMENTATION ENGINEER. Sandra Ungerer INSTRUMENTATION ENGINEER-C Work Phone: [facility] 04-13-2024 09:43-0500 SaO2% (BldA) [Mass fraction] 97 % INSTRUMENTATION ENGINEER. Sandra Beckerer INSTRUMENTATION ENGINEER-C Work Phone: [facility] 04-13-2024 09:43-0500 Systolic blood pressure 142 mm[Hg] INSTRUMENTATION ENGINEER. Sandra Beckerer INSTRUMENTATION ENGINEER-C Work Phone: [facility] 01-10-2024 10:09-0500 Body mass index (BMI) [Ratio] 38.9 kg/m2 INSTRUMENTATION ENGINEER. Sandra Beckerer INSTRUMENTATION ENGINEER-C Work Phone: [facility] 01-10-2024 10:09-0500 Body weight 112.66 kg INSTRUMENTATION ENGINEER. Sandra Beckerer INSTRUMENTATION ENGINEER-C Work Phone: [facility] 01-10-2024 10:09-0500 Diastolic blood pressure 82 mm[Hg] INSTRUMENTATION ENGINEER. Sandra Beckerer INSTRUMENTATION ENGINEER-C Work Phone: [facility] 01-10-2024 10:09-0500 Heart rate 87 /min INSTRUMENTATION ENGINEER. Sandra Beckerer INSTRUMENTATION ENGINEER-C Work Phone: [facility] 01-10-2024 10:09-0500 SaO2% (BldA) [Mass fraction] 98 % INSTRUMENTATION ENGINEER. Sandra Beckerer INSTRUMENTATION ENGINEER-C Work Phone: [facility] 01-10-2024 10:09-0500 Systolic blood pressure 131 mm[Hg] INSTRUMENTATION ENGINEER. Sandra Beckerer INSTRUMENTATION ENGINEER-C Work Phone: [facility] 01-04-2023 10:55-0500 Body height 170.[address] Ivone Hurtado Work Phone: [facility] 01-04-2023 10:55-0500 Body mass index (BMI) [Ratio] 41.5 kg/m2 Dr. Ivone Hurtado Work Phone: [facility] 01-04-2023 10:55-0500 Body weight 120.[address] Ivone Hurtado Work Phone: [facility] 11-13-2022 09:01-0400 Body mass index (BMI) [Ratio] 40.7 kg/m2 Dr. Ivone Hurtado Work Phone: [facility] 11-13-2022 09:01-0400 Body weight 118.[address] Ivone Hurtado Work Phone: [facility] 05-27-2021 15:57-0400 Body height 170.[address] Ivone Hurtado Work Phone: [facility] Work Phone: 05-27-2021 15:57-0400 Body mass index (BMI) [Ratio] 41.1 kg/m2 Dr. Ivone Hurtado Work Phone: [place] Work Phone: 05-27-2021 15:57-0400 Body weight 119.[address] Ivone Hurtado Work Phone: [place] Work Phone: 05-27-2021 15:57-0400 Diastolic blood pressure 90 mm[Hg] Dr. Ivone Hurtado Work Phone: [place] Work Phone: 05-27-2021 15:57-0400 Systolic blood pressure 130 mm[Hg] Dr. Ivone Hurtado Work Phone: [place] Work Phone: 05-20-2021 08:50-0400 Diastolic blood pressure 98 mm[Hg] Dr. Ivone Hurtado Work Phone: [place] Work Phone: 05-20-2021 08:50-0400 Systolic blood pressure 166 mm[Hg] Dr. Ivone Hurtado Work Phone: [place] Work Phone: 05-20-2021 08:17-0400 Body mass index (BMI) [Ratio] 41.5 kg/m2 Dr. Ivone Hurtado Work Phone: [place] Work Phone: 05-20-2021 08:17-0400 Body weight 120.[address] Ivone Hurtado Work Phone: [place] Work Phone: Encounters Encounter Date Encounter Type Care Provider Facility Start: 12-13-2024 End: 12-13-2024 ambulatory [facility] Facility:[facility] Start: 12-13-2024 End: 12-13-2024 ambulatory [facility] Facility:[place] Start: 11-16-2024 End: 11-16-2024 Patient encounter procedure Sandra Meredith NP-C -[facility] Work Phone: Start: 11-16-2024 End: 11-16-[address] Pancho Tran MD Work Phone: -[facility] Start: 09-22-2024 ambulatory SANDRA GARCES [facility] Start: 09-22-2024 Encounter for other preprocedural examination SANDRA GARCES [facility] Start: 07-08-2024 Non-patient / Non-visit Dr. Liza Sargent MD -[facility] Work Phone: Start: 07-07-2024 ambulatory Alejandra Weiner Facility :[facility] Start: 07-07-2024 End: 07-08-2024 Evaluation and management of inpatient Dr. Cate Sargent MD -[facility] Work Phone: Start: 07-07-2024 Non-patient / Non-visit Dr. Ishaan Weiner MD -[facility] Work Phone: Start: 07-06-2024 End: 07-08-2024 ambulatory Cate Sargent Facility:[place] Start: 07-06-2024 Evaluation and management of inpatient Dr. Alejandra Weiner MD -[facility] Work Phone: Start: 07-06-2024 observation encounter Sandra Meredith INSTRUMENTATION ENGINEER-C Work Phone: [place] Work Phone: Start: 07-06-2024 End: 07-06-2024 ambulatory Sandratrav Meredith INSTRUMENTATION ENGINEER-C Work Phone: [place] Work Phone: Start: 07-06-2024 End: 07-06-2024 Patient encounter procedure Manan PAUL -[facility] Start: 07-06-2024 End: 07-06-2024 Patient encounter procedure Caitlin Tilley INSTRUMENTATION ENGINEER-C -[facility] Work Phone: Start: 07-06-2024 End: 07-06-2024 ambulatory Sandra Meredith INSTRUMENTATION ENGINEER-C Work Phone: [facility] Work Phone: Start: 07-06-2024 End: 07-06-2024 ambulatory [facility] Facility:[place] Start: 06-01-2024 End: 06-01-2024 ambulatory INSTRUMENTATION ENGINEER. Sandra Meredith INSTRUMENTATION ENGINEER-C Work Phone: [place] Work Phone: Start: 06-01-2024 End: 06-01-[address] Pancho Tran MD -[facility]patient [facility] Work Phone: Start: 06-01-2024 End: 06-01-2024 ambulatory [facility] Facility:[place] Start: 05-25-2024 End: 05-25-2024 ambulatory INSTRUMENTATION ENGINEER. Sandra Meredith INSTRUMENTATION ENGINEER-C Work Phone: [place] Work Phone: Start: 05-25-2024 End: 05-25-2024 Patient encounter procedure Pam Small CNM -Laboratory, Specimen Work Phone: Start: 05-24-2024 Encounter for gynecological examination (general) (routine) without abnormal findings Pam Small [place] Start: 05-24-2024 End: 05-24-2024 Patient encounter procedure Pam Small CNM -[facility] Start: 05-24-2024 End: 05-24-2024 Patient encounter status Pam Small CNM [facility] Start: 05-24-2024 End: 05-25-2024 ambulatory [facility] Facility:[place] Start: 05-06-2024 End: 05-06-2024 ambulatory DANNY NEVAREZ Facility: Start: 05-06-2024 End: 05-06-2024 Emergency department patient visit DANNY NEVAREZ MD Work Phone: [facility] Start: 04-20-2024 Encounter for genera l adult medical examination without abnormal findings [facility] Start: 04-20-2024 End: 04-20-[address] Pancho Tran MD -[facility] Work Phone: Start: 04-20-2024 End: 04-20-[address] Pancho Tran MD [place] Start: 04-20-2024 End: 04-20-2024 ambulatory INSTRUMENTATION ENGINEER. Sandra Meredith INSTRUMENTATION ENGINEER-C Work Phone: [place] Work Phone: Start: 04-20-2024 End: 04-20-2024 ambulatory [facility] Facility:[place] Start: 04-13-2024 End: 04-13-2024 Patient encounter procedure Caitlin Tilley NP-C -[facility] Work Phone: Start: 04-13-2024 End: 04-13-2024 ambulatory Caitlin Tilley Facility:[facility] Start: 01-10-2024 End: 01-10-2024 Patient encounter procedure Caitlin Tliley NP-C -[facility] Work Phone: Start: 01-10-2024 End: 01-10-2024 ambulatory Caitlin Jarek Facility:[facility] Start: 01-10-2024 End: 01-10-2024 ambulatory Caitlin Hillpoint Facility:[place] Start: 11-02-2023 End: 12-14-2023 ambulatory SANDRA MEREDITH [facility] Start: 06-16-2023 ambulatory SANDRAESTEFANIA MEREDITH [facility] y:[facility] Start: 06-16-2023 End: 06-16-2023 Office consultation new/estab patient 60 min Tiffany Beaver MD Work Phone: [facility] Comment on above: Left hip pain (Prima ry Dx) Start: 06-16-2023 End: 06-16-2023 Subsequent hospital visit by physician Tiffany Beaver MD Work Phone: [facility] Comment on above: Arrived Start: 01-18-2023 End: 01-18-[address] Ivone Hurtado Work Phone: [place] Work Phone: Start: 01-18-2023 End: 01-18-[address] Ivone Hurtado Work Phone: [place] Work Phone: Start: 01-07-2023 End: 01-07-[address] Ivone Hurtado Work Phone: [facility] Work Phone: Start: 01-04-2023 End: 01-04-[address] Ivone Hurtado Work Phone: [facility] Work Phone: Start: 12-25-2022 End: 12-25-[address] Ivone Hurtado Work Phone: [facility] Work Phone: Start: 11-27-2022 End: 11-27-[address] Ivone Hurtado Work Phone: [facility] Work Phone: Start: 11-13-2022 End: 11-13-[address] Ivone Hurtado Work Phone: [facility] Work Phone: Start: 05-27-2021 End: 05-27-[address] Ivone Hurtado Work Phone: [facility] Start: 05-27-2021 End: 05-27-[address] Ivone Hurtado Work Phone: [place] Start: 05-20-2021 End: 05-20-[address] Ivone Hurtado Work Phone: [place], Spec[facility] Start: 05-20-2021 End: 05-20-[address] Ivone Hurtado Work Phone: [facility] Start: 02-09-2018 Patient encounter procedure MANE SMITH Facility:[facility] Start: 01-28-2018 End: 01-28-2018 Patient encounter procedure MANE SMITH Facility:[facility] Procedures Date Procedure Procedure Detail Performing Clinician Start: 07-08-2024 Estimated creatinine clearance Sandra Ungerer INSTRUMENTATION ENGINEER-C Work Phone: Start: 07-08-2024 Reactive lymphocyte count Sandra Ungerer INSTRUMENTATION ENGINEER-C Work Phone: Start: 07-07-2024 Iadna-dna/rna gi pth gn multiplex probe tq 6-11 Sandra Ungerer INSTRUMENTATION ENGINEER-C Work Phone: Start: 07-07-2024 Nucleic acid assay Kateryna ica Ungerer INSTRUMENTATION ENGINEER-C Work Phone: Start: 07-07-2024 Serum inorganic phos phate measurement Sandra Meredith INSTRUMENTATION ENGINEER-C Work Phone: Start: 07-06-2024 Urnls dip stick/tabl et reagent auto microscopy Sandra Meredith INSTRUMENTATION ENGINEER-C Work Phone: Start: 07-06-2024 Oxygen measurement Kateryna Meredith INSTRUMENTATION ENGINEER-C Work Phone: Start: 07-06-2024 Computed tomography of abdomen and pelvis with intravenous contrast Sandra Meredith INSTRUMENTATION ENGINEER-C Work Phone: Start: 07-06-2024 Estimated creatinine clearance Sandra Meredith INSTRUMENTATION ENGINEER-C Work Phone: Start: 07-06-2024 Vitamin D, 25-hydrox y measurement Sandra Meredith INSTRUMENTATION ENGINEER-C Work Phone: Comment on above: Vitamin D StatusDefi ciency: <20 ng/mL (50nmol/L)Insufficiency: 20-30 ng/mL (50-75 nmol/L)Sufficiency: 30-100 ng/mL (75-250 nmol/L)Toxicity: >100 ng/mL (>250 nmol/L) Start: 06-01-2024 Dual energy X-ray absorptiometry INSTRUMENTATION ENGINEER. Sandra Meredith INSTRUMENTATION ENGINEER-C Work Phone: Start: 06-01-2024 Screening mammography N P. Sandar Meredith INSTRUMENTATION ENGINEER-C Work Phone: Start: 05-25-2024 Liquid based cervica l cytology screening Sandra Meredith INSTRUMENTATION ENGINEER-C Work Phone: Comment on above: EPITHELIAL CELL [...] Activity Detail Author Start: 07-08-2024 Patient discharge [place] Start: 07-07-2024 Admission procedure [place] Start: 07-07-2024 Hepatic function panel [place] Start: 07-07-2024 Prothrombin time [place] Start: 07-07-2024 Serum inorganic phosphate measurement [place] Start: 07-07-2024 Thyroid stimulating hormone measurement [place] Start: 07-07-2024 Enteric precautions [place] Start: 07-07-2024 Following clinical pathway protocol [place] Start: 07-07-2024 Inhalation therapy procedure [place] Start: 07-07-2024 [place] Start: 07-06-2024 Admission procedure [place] Start: 07-06-2024 Assessment of risk of venous thromboembolism [place] Start: 07-06-2024 Insertion of catheter into peripheral vein [place] Start: 07-06-2024 End: 07-07-2024 Patient referral to dietitian [place] Start: 07-06-2024 Providing care according to standard [place] Start: 07-06-2024 Verification routine [place] Start: 07-06-2024 [place] Start: 07-06-2024 Hospital admission, emergency, from emergency room, medical nature [place] Start: 07-06-2024 CBC W Auto Differential panel - Blood [place] Start: 07-06-2024 Comprehensive metabolic 2000 panel - Serum or Plasma [place] Start: 07-06-2024 Lipid 1996 panel - Serum or Plasma [place] Start: 07-06-2024 T4 free measurement [place] Start: 07-06-2024 Thyroid stimulating hormone measurement [place] Start: 07-06-2024 Triiodothyronine, free measurement [place] Start: 07-06-2024 Vitamin D, 25-hydroxy measurement [place] Start: 05-25-2024 Liquid based cervical cytology screening [place] Start: 04-20-2024 Patient referral [place] Work Phone: Start: 10-24-2023 Influenza vaccination INFLUENZA VACCINE (Season Ended) [facility] Start: 07-21-2023 End: 07-21-2023 Patient encounter procedure 07/21/2023 9:20 AM EDT [facility] Visit [facility] [address] [place] [address] Jackson Campuzano, DO [address] [place] [address] [facility] Start: 01-04-2023 Patient referral [place] Work Phone: Start: 11-27-2022 Patient referral [place] Work Phone: Start: 10-23-2022 COVID-19 VACCINE ( season) COVID-19 VACCINE ( season) [facility] Start: 05-27-2018 Hepatitis B vaccination HEP B VACCINE (2 of - 19+ 3-dose series) [facility] Start: 2012 Zoster vaccine hzv live for subcutaneous use ZOSTER (SHINGLES) VACCINE (1 of 2) [facility] Start: 12-05-2007 Screening for malignant neoplasm of colon COLORECTAL CANCER SCREENING DISCUSSION [facility] Start: 2002 Lipid panel LIPID SCREENING [facility] Start: 2002 Screening for malignant neoplasm of breast MAMMOGRAM SCREENING DISCUSSION [facility] Start: 12-05-1983 Screening for malignant neoplasm of cervix CERVICAL CANCER SCREENING DISCUSSION [facility] Start: 1981 Third diphtheria, tetanus and acellular pertussis (DTaP) vaccination TDAP (ADULT) [facility] Start: 1977 HIV screening HIV SCREENING DISCUSSION [facility] Start: 1960 Hepatitis C screening HEPATITIS C VIRUS SCREENING [facility] Start: 1960 Tetanus vaccination TETANUS [facility] Alanine aminotransfe rase [Enzymatic activity/volume] in Serum or Plasma [place] Alanine aminotransfe rase [Enzymatic activity/volume] in Serum or Plasma [place] Albumin [Mass/volume ] in Serum or Plasma [place] Albumin [Mass/volume ] in Serum or Plasma [place] Alkaline phosphatase [Enzymatic activity/volume] in Serum or Plasma [place] Alkaline phosphatase [Enzymatic activity/volume] in Serum or Plasma [place] Anion gap in Serum o r Plasma [place] Anion gap in Serum o r Plasma [place] Bilirubin, total measurement [place] Bilirubin, total measurement [place] Bilirubin.direct [Mass/volume] in Serum or Plasma [place] BUN/Creatinine ratio [place] BUN/Creatinine ratio [place] Calcium [Mass/volume ] in Serum or Plasma [place] Calcium [Mass/volume ] in Serum or Plasma [place] Carbon dioxide, tota l [Moles/volume] in Central venous blood [place] Carbon dioxide, tota l [Moles/volume] in Central venous blood [place] Cholesterol [Mass/vo lume] in Serum or Plasma [place] Cholesterol in HDL [Mass/volume] in Serum or Plasma [place] Clostridioides diffi cile DNA [Presence] in Unspecified specimen by VERONICA with probe detection [place] Comprehensive metabo lic 2000 panel - Serum or Plasma [place] Creatinine [Mass/vol ume] in Serum or Plasma [place] Creatinine [Mass/vol ume] in Serum or Plasma [place] Cytology report of Cervical or vaginal smear or scraping Cyto stain.thin prep [place] DXA Bone [Mass/Area] Bone density [place] Erythrocyte mean corpuscular volume determination [place] Erythrocyte mean corpuscular volume determination [place] Glucose [Mass/volume ] in Serum or Plasma [place] Glucose [Mass/volume ] in Serum or Plasma [place] Hematocrit [Volume Fraction] of Blood [place] Hematocrit [Volume Fraction] of Blood [place] Hemoglobin [Mass/vol ume] in Blood [place] Hemoglobin [Mass/vol ume] in Blood [place] INR in Blood by Coagulation assay [place] Leukocytes [#/volume ] in Blood [place] Leukocytes [#/volume ] in Blood [place] Lipid 1996 panel - S alhaji or Plasma [place] Low density lipoprot ein cholesterol measurement [place] Magnesium measurement [facility] Mean corpuscular hemoglobin concentration determination [place] Mean corpuscular hemoglobin concentration determination [place] Mean corpuscular hemoglobin determination [place] Mean corpuscular hemoglobin determination [place] Measurement of renal function [place] Measurement of renal function [place] MG Breast - bilatera l Screening [place] Neutrophil count [facility] Neutrophil count [facility] Neutrophil percent differential count [place] Neutrophil percent differential count [place] Nucleic acid assay [facility] Path report.final Dx Spec [facility] Patient Education [facility] Work Phone: Patient referral [facility] Work Phone: Platelets [#/volume] in Blood [place] Platelets [#/volume] in Blood [place] Potassium measurement [facility] Potassium measurement [facility] Red blood cell count [place] Red blood cell count [place] Red cell distributio n width determination [place] Red cell distributio n width determination [place] Serum chloride measurement [place] Serum chloride measurement [place] Sodium measurement [facility] Sodium measurement [facility] T4 free measurement [place] Thyroid stimulating hormone measurement [place] Total cholesterol:HD L ratio measurement [place] Total protein measurement [facility] Total protein measurement [facility] Triglycerides measurement [facility] Triiodothyronine, fr ee measurement [place] Urea nitrogen [Mass/volume] in Serum or Plasma [place] Urea nitrogen [Mass/volume] in Serum or Plasma [place] Urine microalbumin/creatinine ratio measurement [place] Vitamin D, 25-hydrox y measurement [place] VLDL cholesterol measurement [facility] Immunizations Immunization Date Immunization Notes Care Provider Fa cility 06-04-2020 Covid (Pfizer) Sandra Becker er INSTRUMENTATION ENGINEER-C Work Phone: [place] 05-10-2020 Covid (Pfizer) Sandra Becker er INSTRUMENTATION ENGINEER-C Work Phone: [place] 11-06-2019 pneumococcal polysaccharide vaccine, 23 valent Sandra Meredith INSTRUMENTATION ENGINEER-C Work Phone: [place] Payers Date Payer Category Payer Unknown [id number] 2023 Self-pay [id number] 2023 Unknown [id number] 2023 Unknown MIKE MALIN IDRIS [id number] 2023-Present [address] [place] [address] [id number] 1960 Unknown [id number] 1960 Unknown [id number] 1962 Unknown [id number] Unknown [id number] Unknown [id number] Unknown [id number] Unknown [id number] 04.09.830.1.399336.3.579.2.283 Unknown [id number] Unknown [id number] 2.16.840.1.774409.3.579.2.528 Unknown [id number] 2.16.840.1.925014.3.579.2.462 Unknown [id number] 2.16.840.1.253666.3.579.2.462 Unknown [id number] 2.16.840.1.237862.3.579.2.462 Unknown [id number] 2.16.840.1.050505.3.579.2.462 Unknown [id number] 2.16.840.1.631026.3.579.2.462 Unknown [id number] 2.16.840.1.810550.3.579.2.462 Unknown [id number] 2.16.840.1.559904.3.579.2.462 Unknown [id number] 2.16.840.1.432226.3.579.2.462 Unknown [id number] 2.16.840.1.033365.3.579.2.462 Unknown [id number] 2.16.840.1.210206.3.579.2.462 Unknown [id number] 2.16.840.1.829808.3.579.2.462 Unknown [id number] 2.16.840.1.078518.3.579.2.462 Unknown [id number] 2.16.840.1.211251.3.579.2.462 Unknown [id number] 2.16.840.1.731477.3.579.2.462 Unknown [id number] 2.16.840.1.545401.3.579.2.462 Unknown [id number] 2.16.840.1.485988.3.579.2.462 Unknown [id number] 2.16.840.1.966649.3.579.2.462 Social History Date Type Detail Facility Start: 05-27-2021 End: 01-07-2023 Tobacco smoking status NHIS Unknown if ever smoked [place] Start: 1960 Sex Assigned At Female [facility] Start: 06-16-2023 End: 07-07-2024 Tobacco smoking status NHIS Never smoked tobacco [facility] Start: 06-16-2023 Tobacco use and exposure Smokeless tobacco non-user [facility] Start: 06-16-2023 History of Social function [facility] Start: 06-16-2023 Tobacco use panel [facility] Start: 1960 Sex assigned at Not on file [facility] Start: 05-04-2024 End: 06-06-2024 Sex Female (finding) [place] Start: 05-06-2024 Never Never [facility] Start: 05-06-2024 No No [facility] Medical Equipment Procedure Code Equipment Code Equipment Origin al Text Equipment Identifier Dates Arthroplasty, hip, total, using robot-assisted navigation ([id number]) Ceramic femoral head prosthesis ()[id number] FDA Start: 10-19-2023 Arthroplasty, hip, total, using robot-assisted navigation ([id number]) Coated hip femur prosthesis, modular ()[id number] ()[id number] FDA Start: 10-19-2023 Arthroplasty, hip, total, using robot-assisted navigation ([id number]) Non-constrained polyethylene acetabular liner ()[id number] ()[id number] FDA Start: 10-19-2023 Arthroplasty, hip, total, using robot-assisted navigation ([id number]) Acetabular shell ()[id number] ()[id number] FDA Start: 10-19-2023 Arthroplasty, hip, total, using robot-assisted navigation ([id number]) Orthopaedic bone screw, non-bioabsorbable, sterile ()[id number] Start: 10-19-2023 Start: 01-28-2023 Blood Sugar Diagnostic [...] Assessment Result Facility 07-08-2024 Functional status [facility] Work Phone: Mental Status Date Assessment Result Facility 07-08-2024 Cognitive function Voice/Name [facility] Work Phone: 07-06-2024 Cognitive function Level Of Cons ciousness Awake;Alert;Appropriate;Follow s Commands [place] Work Phone: 05-06-2024 Cognitive function Level Of Cons ciousness Awake;Alert;Appropriate;Follow s Commands [facility] Work Phone: Clinical Notes 06-16-2023 to 11-16-2024 Note Date & Type Note Facility 11-16-2024 Progress note [facility] 07-08-2024 Note [facility] Medical Records Department [address] [place] [address] Discharge Summary 07/08/24 1014 MR#: [id number] Acct: [id number] Name: LIGIA RIVAS Rep #: [id number] : 1960 63 From: Cate Sargent MD PCP: Dr. Pancho Tran MD Status:DIS IN [facility] Providers Date of Admission: 07/07/24 Date of [...] of breath or wheezing 05/20/21 blood-glucose transmitter ([employer] G6 Transmitter device) #1 ea 01/04/23 trazodone [...] DAILY #60 tabs 03/14/24 blood sugar diagnostic (OneTouch Ultra Test strips) #100 ea 04/13/24 cholecalciferol [...] movement, no ret (more content not included)... [place] 07-08-2024 Discharge summary [place] 07-07-2024 Progress note Note Date/Time July 07, 2024 4:43pm [facility] Medical Records Department [address] [place] [address] Progress Note 07/07/24 1411 MR#: [id number] Acct: [id number] Name: LIGIA RIVAS Rep #:[id number] : 1960 63 From: Cate Sargent MD PCP: Dr. Pancho Tran MD Status:A DM IN Location: [place] [address] Subjective Subjective Patient seen and examined. She [...] / 1999 Balance 1000 / 1000 1999 / 1999 Lab / Micro Data 07/07/24 06:32 07/07/24 06:32 Labs: Laboratory Results - last 24 hr 07/06/24 20:05: WBC 11.2 H, RBC 6.29 H, Hgb 17.9 H, Hct 52.2 H, MCV 83.0, MCH 28.5, MCHC 34.3, RDW Std Deviation 42.5, RDW Coeff of Zachary 14.2, Plt Count 325, MPV 11.1, Immature Gran % (Auto) 0.400, Neut % (Auto) 56.3, Lymph % (Auto) 32.3,Harding % (Auto) 9.9, Eos % (Auto) 0.7, [...] Clarity Clear, Urine pH 5.0, Ur Specific [place] 1.025, Urine Protein 30 H, Urine Glucose [...] (Auto) 44.8 L, Lymph % (Auto) 43.3 H,Harding % (Auto) 9.6, Eos % (Auto) 1.7, [...] diverticulosis. 3. Multivessel coronary calcifications. Reading Location: [facility] Physical Exam Const alert, oriented x3 and [...] prophylaxis: SCDs Charges/Coding Visit Charges Inpatient E&M: 03973 Subs Hosp L2 07/07/24 1643 <Electronically signed by Cate Sargent MD> Cate Sargent MD Cosigner Signature (if applicable): CC: ~ Signed [place] Work Phone: 1(520) 353-322005-16-2025 Progress note [facility] Medical Records Department [address] [place] [address] Progress Note 07/07/24 1411 MR#: [id number] Acct: [id number] Name: LIGIA RIVAS Rep #:[id number] : 1960 63 From: Cate Sargent MD PCP: Dr. Pancho Tran MD Status:A DM IN Location: [place] [address] Subjective Subjective Patient seen and examined. She [...] 23:59 Intake Total 1000 / 1000 1999 Balance 1000 / 1000 1999 Lab [...] Neut % (Auto) 56.3, Lymph % (Auto) 32.3,Harding % (Auto) 9.9, Eos % (Auto) 0.7, [...] Clarity Clear, Urine pH 5.0, Ur Specific [place] 1.025, Urine Protein 30 H, Urine Glucose [...] %(Auto) 44.8 L, Lymph % (Auto) 43.3 H,Harding % (Auto) 9.6, Eos % (Auto) 1.7, [...] diverticulosis. 3. Multivessel coronary calcifications. Reading Location: [id number] Physical Exam Const alert, oriented x3 and [...] prophylaxis: SCDs Charges/Coding Visit Charges Inpatient E&M: 71785 Subs Hosp L2 07/07/24 1643 Cate Sargent MD Cosigner Signature (if applicable): CC: ~ Signed [place]05-16-2025 History and physical note Author Alejandra Weiner [place] Note Date/Time July 07, 2024 12:34 am [facility] Medical Records Department [address] [place] [address] H&P Exam - Hospitalist 07/07/24 0007 MR#: [id number] Acct: [id number] Name: LIGIA RIVAS Rep #:[id number] : 1960 63 From: Alejandra Weiner MD PCP: Dr. Pancho Tran MD Status:A DM YECENIA Location: [place] [address] HPI - General General Date of Admission: [...] urine ketones negative. POC glucose was 134 [facility] Medical History Anxiety and depression Health [...] 3 current occupational status: employed current occupation: [employer] living pets and animals: Yes pets and [...] physical activity do you participate in: none jered/yarsanism: Cheondoism seatbelt use: sometimes do you feel safe [...] Neut % (Auto) 56.3, Lymph % (Auto) 32.3,Harding % (Auto) 9.9, Eos % (Auto) 0.7, [...] Clarity Clear, Urine pH 5.0, Ur Specific [place] 1.025, Urine Protein 30 H, Urine Glucose [...] diverticulosis. 3. Multivessel coronary calcifications. Reading Location: [facility] Assessment & Plan Assessment/Plan (1) Acute kidney [...] Weiner MD; Dr. Pancho Tran MD~ Signed [place] Work Phone: 1(379) 506-485705-16-2025 Discharge summary Author Mahendra Devine [place] Note Date/Time July 06, 2024 11:04 pm [facility] Medical Records Department [address] [place] [address] Emergency Department Summary 07/06/24 MR#: [id number] Acct: [id number] Name: LIGIA RIVAS Rep #:[id number] : [...] fatigued with low energy. 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 She states that they are trying to wean her off Ozempic and insulin. She states that her blood sugars have been controlled recently. She does have type 2 diabetes, but was told that there is concerned that she has metabolic acidosis. This was based off the laboratory work that was drawn today. [facility] Medical History Anxiety and depression [...] 3 current occupational status: employed current occupation: [employer] living pets and animals: Yes pets and [...] physical activity do you participate in: none jered/yarsanism: Cheondoism seatbelt use: sometimes do you feel safe [...] % (Auto) 56.3 Lymph % (Auto) 32.3 Harding % (Auto) 9.9 Eos % (Auto) 0.7 [...] Clarity Clear Urine pH 5.0 Ur Specific Map[place] 1.025 Urine Protein 30 H Urine Glucose [...] (Auto) Neut % (Auto) Lymph % (Auto) Harding % (Auto) Eos % (Auto) Baso % (Auto) Absolute Neuts (auto) Absolute Lymphs (auto) Nucleated RBC % Sodium Potassium Chloride Carbon Dioxide Anion Gap BUN Creatinine Estim Creat Clear Calc Est GFR (MDRD) Non-Af BUN/Creatinine Ratio Glucose Calcium Total Bilirubin AST ALT Alkaline Phosphatase Total Protein Albumin Globulin Albumin/Globulin Ratio b-Hydroxybutyric mmol/L Urine Color Urine Clarity Urine pH Ur Specific Map[place] Urine Protein Urine Glucose (UA) Urine Ketones [...] diverticulosis. 3. Multivessel coronary calcifications. Reading Location: [id number] Management Discussion w/another healthcare provider: Hospitalist (Dr. Weiner) Discharge Plan Dx/Rx/DC Orders Clinical Impression: Diarrhea, Hyponatremia, Acute kidney injury Disposition Disposition: Acute Care Hospital [facility] What to do if you have Problems For any increased pain, shortness of breath, bleeding, nausea or vomiting, chestpain, or any unexpected problems, contact your Primary Care Provider. Call [facility] ([phone]) or report to the closest Emergency Room. Call 911 if necessary. 07/06/24 6822 <Electronically signed by Mahendra Devine MD> Cosigner Signature (if applicable): CC: Dr. Pancho Tran MD ~ Signed [place] Work Phone: 1(126) 640-357205-16-2025 History and physical note [facility] Medical Records Department [address] [place] [address] H&P Exam - Hospitalist 07/07/24 0007 MR#: [id number] Acct: [id number] Name: LIGIA RIVAS Rep #:[id number] : 1960 63 From: Alejandra Weiner MD PCP: Dr. Pancho Tran MD Status:A DM YECENIA Location: [place] [address] HPI - General General Date of Admission: [...] 1.5 despite fluid therapy. Last A1c checked on07/06 was 7.1 calcium 9.3, alkaline phosphatase 133, [...] 3 current occupational status: employed current occupation: [employer] living pets and animals: Yes pets and [...] physical activity do you participate in: none jered/yarsanism: Cheondoism seatbelt use: sometimes do you feel safe [...] Neut % (Auto) 56.3, Lymph % (Auto) 32.3,Harding % (Auto) 9.9, Eos % (Auto) 0.7, [...] Clarity Clear, Urine pH 5.0, Ur Specific [place] 1.025, Urine Protein 30 H, Urine Glucose [...] diverticulosis. 3. Multivessel coronary calcifications. Reading Location: [id number] Assessment & Plan Assessment/Plan (1) Acute kidney [...] Weiner MD; Dr. Pancho Tran MD~ Signed [place]05-15-2025 Discharge summary [facility] Medical Records Department [address] [place] [address] Emergency Department Summary 07/06/24 MR#: [id number] Acct: [id number] Name: LIGIA RIVAS Rep #:[id number] : [...] fatigued with low energy. 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 She states that they are trying to wean her off Ozempic and insulin. She states that her blood sugars have been controlled recently. She does havetype 2 diabetes, but was told that there is concerned that she has metabolic acidosis. This was based off the laboratory work that was drawn today. [facility] Medical History Anxiety and depression [...] 3 current occupational status: employed current occupation: [employer] living pets and animals: Yes pets and [...] physical activity do you participate in: none jered/yarsanism: Cheondoism seatbelt use: sometimes do you feel safe [...] % (Auto) 56.3 Lymph % (Auto) 32.3 Harding % (Auto) 9.9 Eos % (Auto) 0.7 [...] Clarity Clear Urine pH 5.0 Ur Specific [place] 1.025 Urine Protein 30 H Urine Glucose [...] (Auto) Neut % (Auto) Lymph % (Auto) Harding % (Auto) Eos % (Auto) Baso % (Auto) Absolute Neuts (auto) Absolute Lymphs (auto) Nucleated RBC % Sodium Potassium Chloride Carbon Dioxide Anion Gap BUN Creatinine Estim Creat Clear Calc Est GFR (MDRD) Non-Af BUN/Creatinine Ratio Glucose Calcium Total Bilirubin AST ALT Alkaline Phosphatase Total Protein Albumin Globulin Albumin/Globulin Ratio b-Hydroxybutyric mmol/L Urine Color Urine Clarity Urine pH Ur Specific [place] Urine Protein Urine Glucose (UA) Urine Ketones [...] diverticulosis. 3. Multivessel coronary calcifications. Reading Location: [id number] Management Discussion w/another healthcare provider: Hospitalist (Dr. Weiner) Discharge Plan Dx/Rx/DC Orders Clinical Impression: Diarrhea, Hyponatremia, Acute kidney injury Disposition Disposition: Acute Care Hospital [facility] What to do if you have Problems For any increased pain, shortness of breath, bleeding, nausea or vomiting, chestpain, or any unexpected problems, contact your Primary Care Provider. Call [facility] ([phone]) or report tothe closest Emergency Room. Call 911 if necessary. 07/06/24 9038 Cosigner Signature (if applicable): CC: Dr. Pancho Tran MD ~ Signed [place]05-15-2025 Radiology Diagnostic study note [facility] Imaging Services [address] [place] [address] Abdomen/Pelvis W IV Cont ONLY MR#: [id number] Acct: [id number] Name: LIGAI RIVAS Rep #: [id number] : 1960 F 63 From: Rozina Nava MD PCP: Dr. Pancho Tran MD Status: R EG ER Study:Abdomen/Pelvis W IV Cont ONLY Date of E xam: 07/06/24 Exam# [id number] Ordering Dr: Mahendra Devine MD PROCEDURE: ABDOMEN/PELVIS [...] diverticulosis. 3. Multivessel coronary calcifications. Reading Location: [facility] CC: Dr. Mahendra Devine MD; Dr. Pancho Tran MD ~ Efferves[employer] Salts Compounder: Signed [place]04-03-2025 NotePap Smear Specimen AdequacyApril 2024 11:14amComment.Satisfactory for evaluation. Endocervical and/or squamous metaplasticcells (endocervical component)are present.[facility] A#[id number] on above:Satisfactory for evaluation. Endocervical and/or squamous metaplasticcells (endocervical component)are present.05-06-2024 [place] [address] HEALTH INFORMATION MANAGEMENT EMERGENCY DEPARTMENT : [id number] Signed Patient: LIGIA RIVAS Acct:[id number] MRUN: [id number] : 1960 Sex: F Loc: ED AD [...] Feels Threatened In a Relationship: No - [place]/Gender ID What is your current Gender Identity? [...] Care Provider] - CHRIS GARCIA PA-C [PHYSICIAN OPERATIONAL TEST MECHANIC] - Home Medications: Ambulatory Orders Medication Instructions Recorded Naproxen [Naprosyn] 500 mg PO TID #20 tablet 05/06/24 Time Seen by Provider: 05/06/24 12:08 Electronically Generated By:ALLEN CARRENO MD Generated Date/Time: 05/06/24 1225 Electronically Signed By: 05/06/24 1240 Co Signed Electronically By: Co Signed Date/Time: CC: DANNY NEVARZE MD [facility]03-15-2025 Radiology Diagnostic study note [facility] RADIOLOGY [address] [place] [address] DIAGNOSTIC RADIOLOGY REPORT: [id number], Signed. 2 Patient: LIGIA RIVAS : 1960, age 63 MR#: [id number] Acct: [id number] - EXAMINATION: THREE XRAY VIEWS OF THE [...] by: DAHIANA ORR DO Signed date/time: 05/06/24 7206 CC: DANNY NEVAREZ MD; ALLEN CARRENO MD [facility] Work Phone: 1(761) 814-679602-20-2025 Evaluation note* Diagnosis Onset Date Resolution Status Admit Date HTN (hypertension) chronic Februa 2024 9:38am Hyperthyroidism chronic April 13, 2024 9:38am Obesity chronic April 13, 2024 9:38am Type 2 diabetes mellitus chronic April 13, 2024 9:38am Vitamin D deficiency chronic 2024 9:38am Health care maintenance acute F ebary 2024 3:20pm Anxiety and depression chronic Fe bruary 2024 3:20pm HTN (hypertension) chronic Februa 2024 3:20pm Hyperlipidemia chronic March 262024 3:20pm GITA (obstructive sleep apnea) chroni c April 20, 2024 3:20pm Type 2 diabetes mellitus chronic April 20, 2024 3:20pm Encounter for routine gynecological examination noneactive May 24, 2024 12:00pm [place] Work Phone: 1(713) 545-135702-20-2025 Evaluation note* Diagnosis Onset Date Resolution Status Admit Date HTN (hypertension) chronic 2024 9:38am Hyperthyroidism chronic April 13, 2024 9:38am Type 2 diabetes mellitus chronic April 13, 2024 9:38am Vitamin D deficiency chronic 2024 9:38am Obesity resolved April 13, 2024 9:38am Health care maintenance acute [facility] 2024 3:20pm Anxiety and depression chronic Fe bruary 2024 3:20pm HTN (hypertension) chronic 2024 3:20pm Hyperlipidemia chronic March 262024 3:20pm GITA (obstructive sleep apnea) chroni c April 20, 2024 3:20pm Type 2 diabetes mellitus chronic April 20, 2024 3:20pm Encounter for routine gynecological examination noneactive May 24, 2024 12:00pm Vaginal yeast infection acute M 2024 9:43am HTN (hypertension) chronic July 062024 9:43am Hyperlipidemia chronic July 06, 2024 9:43am Hyperthyroidism chronic July 06, 2024 9:43am Obesity (BMI 30-39.9) chronic July 06, 2024 9:43am Type 2 diabetes mellitus chronic July 06, 2024 9:43am Vitamin D deficiency chronic July 06, 2024 9:43am Diarrhea acute July 06, 2024 10:33am [facility] Work Phone: 1(850) 833-670502-20-2025 Evaluation note* Diagnosis Onset Date Resolution Status [...] 2024 12:00pm Vaginal yeast infection acute M 2024 9:43am HTN (hypertension) chronic July 062024 [...] 2024 11:59pm Hyponatremia acute July 06 11:59pm [place] Work Phone: [phone] Evaluation note* Diagnosis Onset Date Resolution Status [...] 2024 12:00pm Vaginal yeast infection acute M 2024 9:43am HTN (hypertension) chronic July 062024 [...] 2024 3:08pm Hyponatremia acute July 07 3:08pm [place] Work Phone: 1(446) 600-450411-18-2024 Evaluation note* Diagnosis Onset Date Resolution Status Admit Date HTN (hypertension) chronic Novemb er 2023 10:06am Hyperthyroidism chronic January 10, 2024 10:06am Obesity chronic January 10, 2024 10:06am Type 2 diabetes mellitus chronic January 10, 2024 10:06am Vitamin D deficiency chronic [facility] 2023 10:06am HTN (hypertension) chronic 2024 9:38am [...] diabetes mellitus chronic April 20, 2024 3:20pm [place] Work Phone: 1(751) 347-160704-24-2024 History of Present illness Narrative* Tiffany Beaver [...] improve the problem: rest / cane. 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 PHYSICAL EXAMINATION: Well developed, well [...] Surgery Hip Preservation [facility] summary Author ALLEN CARRENO [facility] Note Date/Time May 06, 2024 12: 49pm [facility] [address] [place] [address] HEALTH INFORMATION MANAGEMENT EMERGENCY DEPARTMENT : [phone] Signed Patient: LIGIA RIVAS Acct:[id number] MRUN: [id number] : 1960 Sex: F Loc: ED AD [...] Feels Threatened In a Relationship: No - [place]/Gender ID What is your current Gender Identity? [...] Care Provider] - CHRIS GARCIA PA-C [PHYSICIAN OPERATIONAL TEST MECHANIC] - Home Medications: Ambulatory Orders Medication Instructions Recorded Naproxen [Naprosyn] 500 mg PO TID #20 tablet 05/06/24 Time Seen by Provider: 05/06/24 12:08 Electronically Generated By:ALLEN CARRENO MD Generated Date/Time: 05/06/24 1225 Electronically Signed By: <Electronically signed by ALLEN CARRENO MD> 05/06/24 1249 Co Signed Electronically By: Co Signed Date/Time: CC: DANNY NEVAREZ MD [facility] Work Phone: Discharge summary Author Cate Sargent [place] Note Date/Time July 08, 2024 10:13 am [facility] Medical Records Department [address] [place] [address] Instructions for Home/Discharge Instructions 07/08/24 1010 MR#: [id number] Acct: [id number] Name: LIGIA RIVAS Rep #:[id number] : [...] MD; Dr. Pancho Tran MD ~ Signed [place] Work Phone: Evaluation note* Diagnosis Onset Date Resolution Status Endometrial thickening on ultrasound acute HTN (hypertension) chronic Endometrial thickening on ultrasound acute [place] Work Phone: Evaluation note* Diagnosis Onset Date [...] disease acute Osteoarthritis of left hip a [facility] Work Phone: Evaluation note* Diagnosis Left hip pain- Primary Pain in joint, pelvic region and thigh Left hip pain Pain in joint, pelvic region and thigh documented in this encounter [facility]* Diagnosis Left hip pain Pain in joint, pelvic region and thigh documented in this encounter [facility] Center[facility] noteNo assessment information available [facility] Work Phone: Evaluation note* Diagnosis Onset Date Resolution Status Admit Date Diabetic neuropathy acute 2024 9:41am Anxiety and depression chronic 2024 9:41am HTN (hypertension) chronic 2024 9:41am Type 2 diabetes mellitus chronic November 16, 2024 9:41am [facility] Work Phone: Progress note Author Sandra Meredith [facility] Note Date/Time November 16, 2024 10:41am [facility] [address] [place] [id number] OFFICE VISIT Date of Service: 11/16/24 MR#: [id number] Acct: [id number] Name: LIGIA RIVAS Rep #: [id number] : 1960 Provider: ARCADIO Meredith Age/Sex: 63/F Location: [facility] Status: Signed Intake Vital Signs 07/07/24 14:19 [...] Visit Reasons: medication refills 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 Contract Manager Required: No Accompanied by: Self Is patient [...] mL 08/30/24 11/16/24 Rx [facility] glipizide 10 mg tablet, extended 10 mg [...] Rx tabs Nurse's Note: medication refills needed PFSH Medical History Anxiety and depression Health [...] 3 current occupational status: employed current occupation: [employer] living pets and animals: Yes pets and [...] physical activity do you participate in: none jered/yarsanism: Cheondoism seatbelt use: sometimes do you feel safe at home: Yes additional social history: - Dionisio HPI HPI 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 Details: LIGIA RIVAS, is [...] use of insulin E11.65; Z79.4 Diabetes mellitus mcfp insulin use: with intermediate frame tender use Diabetes mellitus complication status: with hyperglycemia Hypertension, unspecified type I10 Hypertension type: unspecified Diabetic neuropathy E11.40 Time Spent (min) 30 Assessment and Plan Assessment and Plan (1) Anxiety and depression: Status: Chronic Plan: Well-controlled at this time we will continue current medication (2) Type 2 diabetes mellitus: Status: Chronic Qualifiers: Diabetes mellitus intermediate frame tender insulin use: with mcfp use Diabetes mellitus complication status: with hyperglycemia Qualified Code(s): E11.65 - Type 2 diabetes mellitus with hyperglycemia; 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 Work Phone: Reason for referral (narrative)* Consultation (Routine) - New Request Specialty Diagnoses / Procedures Referred By David pruitt Referred To Contact Orthopaedics Diagnoses Left hip pain Tiffany Beaver MD [address] [place] [address] Referral ID Status Reason Start Date Expiration Date V isits Requested Visits Authorized [id number] New Request 06/16/2023 07/10/2024 1 1 * Diagnostic X-Ray (Routine) - New Request Specialty Diagnoses / Procedures Referred By Contac t Referred To Contact Diagnoses Left hip pain Procedures XR HIP LEFT 2-3 VIEWS Tiffany Beaver MD [address] [place] [address] Referral ID Status Reason Start Date Expiration Date V isits Requested Visits Authorized [id number] New Request 06/15/2023 07/09/2024 1 1 [facility] (narrative)No reason for referral information availableWashington Medical Services Work Phone: Summary Purpose Family History No Family History Records Found Relationship Condition Age at Onset Recorded Date/T rosalba father Diabetes mellitus Unknown Hypertension Unknown Chronic obstructive pulmonary disease Unk nown Cardiac disease Unknown Kidney disorder Unknown brother Cardiac disease Unknown Diabetes mellitus Unknown Malignant neoplasm of pancreas Unknown mother Atrial fibrillation Unknown Advance Directives No Advanced Directives Records Found Advance Directive Response Recorded Date/ Time Living Will No October 05 11:15am Power of Senior Procurement Specialist No October 05 11:15am Advance Directive Response Recorded Date/ Time Do you have a Healthcare Power of Senior Procurement Specialist? No July 06, 2024 9:33pm Advance Directive Response Recorded Date/ Time Do you have a Healthcare Power of Senior Procurement Specialist? No July 07, 2024 12:42am Chief Complaint [...] ENDO PT April 20, 2024 3:20pm Annual (DIGITAL SALES MANAGER) May 24, 2024 12:0 0pm PAP May [...] ENDO PT April 20, 2024 3:20pm Annual (DIGITAL SALES MANAGER) May 24, 2024 12:0 0pm PAP May 25, 2024 8:59 am SCREENING/POST CONNIE June 01, 2024 1:3 1pm Chief Complaint Admit Date 3 M FU April 13, 2024 9:38am EST NEW PT - ENDO PT April 20, 2024 3:20pm Annual (DIGITAL SALES MANAGER) May 24, 2024 12:0 0pm PAP May 25, 2024 8:59 am SCREENING/POST CONNIE June 01, 2024 1:3 1pm 3 M FU July 06, 2024 9:43a m Chief Complaint Admit Date 3 M FU April 13, 2024 9:38am EST NEW PT - ENDO PT April 20, 2024 3:20pm Annual (DIGITAL SALES MANAGER) May 24, 2024 12:0 0pm PAP May [...] 2024 3:20pm Hyperlipidemia April 20, 2024 3:20pm GIAT (obstructive sleep apnea) March 262024 3:20pm Type [...] ENDO PT April 20, 2024 3:20pm Annual (DIGITAL SALES MANAGER) May 24, 2024 12:0 0pm PAP May [...] ENDO PT April 20, 2024 3:20pm Annual (DIGITAL SALES MANAGER) May 24, 2024 12:0 0pm PAP May [...] 2024 9:38am Health care maintenance April 20, 025 3:20pm Anxiety and depression April 20 [...] ENDO PT April 20, 2024 3:20pm Annual (DIGITAL SALES MANAGER) May 24, 2024 12:0 0pm PAP May [...] Referral Specialty Diagnoses / Procedures Referred By David pruitt Referred To Contact Diagnoses Left hip pain Procedures XR HIP LEFT 2-3 VIEWS Tiffany Beaver MD [address] [place] [address] Referral ID Status Reason Start Date Expiration Date V isits Requested Visits Authorized [id number] New Request 06/15/2023 07/09/2024 1 1 Additional Source Comments INFORMATION SOURCE (unrecogn ized section and content) DATE CREATED AUTHOR 04/11/2018 [facility] DATE CREATED AUTHOR AUTHOR'S ORGANIZ ATION 06/26/2018 [facility] DATE CREATED AUTHOR AUTHOR'S ORGANIZ ATION 03/08/2020 [facility] DATE CREATED AUTHOR AUTHOR'S ORGANIZ ATION 10/31/[address] [facility] DATE CREATED AUTHOR AUTHOR'S ORGANIZ ATION 06/18/2023 [facility] DATE CREATED AUTHOR AUTHOR'S ORGANIZ ATION 05/11/2024 [facility] DATE CREATED AUTHOR AUTHOR'S ORGANIZ ATION 09/24/2024 [facility] DATE CREATED AUTHOR AUTHOR'S ORGANIZ ATION 12/23/2024 [facility] Goals (unrecognized section and content) Goals [...] Team Status: Inactive Member Role Status Dates NP. Sandra Meredith NP-C Primary Care Provider Activ e Start: January 10, 2024 End: January 10, 2024 NP. Sandra Meredith NP-Raeann Referring Provider Active Start: January 10, 2024 End: January 10, 2024 ARCADIO Acosta Attending Provider Active Start: January 10, 2024 End: January 10, 2024 Team Status: Inactive Member Role Status Dates NP. Sandra Meredith NP-Raeann Primary Care Provider Activ e Start: January 10, 2024 End: January 10, 2024 ARCADIO Acosta Attending Provider Active Start: January 10, 2024 End: January 10, 2024 ARCADIO Acosta Referring Provider Active Start: January 10, 2024 End: January 10, 2024 Team Status: Inactive Member Role Status Dates INSTRUMENTATION ENGINEER. Sandra Ungerer , INSTRUMENTATION ENGINEER-C Primary Care Provider Activ e Start: April 13, 2024 End: April 13, 2024 NP. Sandra Meredith NP-C Referring Provider Active Start: April 13, 2024 End: April 13, 2024 Caitlin Tilley NP-C Attending Provider Active Start: April 13, 2024 End: April 13, 2024 Team Status: Inactive Member Role Status Dates NP. Sandra Meredith INSTRUMENTATION ENGINEER-C Primary Care Provider Activ e Start: April 20, 2024 End: April 20, 2024 NP. Sandra Meredith NP-C Referring Provider Active Start: April 20, 2024 [...] Team Status: Inactive Member Role Status Dates Sandra Meredith INSTRUMENTATION ENGINEER-C Primary Care Provider Active Start: April 13, 2024 End: April 13, 2024 Sandra Meredith INSTRUMENTATION ENGINEER-C Referring Provider Active Start: April 13, 2024 End: April 13, 2024 ARCADIO Acosta Attending Provider Active Start: April 13, 2024 End: April 13, 2024 Team Status: Inactive Member Role Status Dates Sandra Meredith INSTRUMENTATION ENGINEER-C Primary Care Provider Active Start: April 20, 2024 End: April 20, 2024 Sandra Meredith INSTRUMENTATION ENGINEER-C Referring Provider Active Start: April 20, 2024 [...] of left hip Sandra Meredith MD [address] [place] [address] [facility] [address] [place] [address] Referral ID Status Reason Start Date Expiration Date V isits Requested Visits Authorized [id number] Pending Review 06/10/2023 07/04/2024 1 1 Specialty Diagnoses / Procedures Referred By Contac t Referred To Contact Diagnoses Left hip pain Procedures XR HIP LEFT 2-3 VIEWS Tiffany Beaver MD [address] [place] [address] Referral ID Status Reason Start Date Expiration Date V isits Requested Visits Authorized [id number] New Request 06/15/2023 07/09/2024 1 1 FOR [...] BE BASED ON THE PRIMARY CLINICAL RECORDS. [facility]. provides no warranty or guarantee of the accuracy or completeness of information in this document.
[2024-12-30 08:38] LABS: Mucous, Urine 0 SEEN /hpf (<or=2+)
[2024-12-30 09:49] LABS: Color, Urine Yellow (Yellow); Glucose, Dipstick 100 mg/dl (Normal); Ketone-Dipstick Negative (Negative); Leukocyte Esterase-Dipstick 500 /ul (Negative); Nitrite-Dipstick Negative (Negative); Occult Blood-Urine 10 /ul (Negative); Protein-Dipstick 30 mg/dl (Negative); Specific Gravity, Urine 1.020 (1.002-1.030); Urine Bilirubin Dipstick Negative (Negative)
[2024-12-30 10:17] LABS: Red Blood Cells-Urine 0-5 SEEN /hpf (0-5); Squamous Epithelial Cells - UA 0-5 SEEN /hpf (5-10)
== END | disposition home or self-care (01) ==
LOC: LAB 08:28
PROVIDERS: PCP Internal Medicine; Referring Provider Internal Medicine; Visit Provider Internal Medicine
DX: N39.0 Urinary tract infection, site not specified (principal)
CPT/HCPCS: 81001; 87077; 87086; 87088; 87186